=== PATIENT | male | born 1960 | race Two or more races ===

== ENCOUNTER 2024-05-11 13:33 | Inpatient (IN) | payer MEDICARE, MEDICAID, SELFPAY ==
[2024-05-11] VITALS (7 sets, daily range): BP systolic 128–164; BP diastolic 45–89; PULSE 42–89; RESP 16–100; TEMP 36.6–36.9; O2SAT 95–100; BMI 33.4
--- NOTE | 2024-05-11 13:53 | EKG_ITS ---
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1960 Requested By: ED Temporary Provider Order Number: [id number] Reading MD: ED Temporary Provider Measurements Intervals [place] Rate: 43 P: CO: QRS: -4 QRSD: 121 T: 54 QT: 428 QTc: 366 Interpretive Statements ATRIAL FLUTTER/TACHYCARDIA WITH SLOW VENTRICULAR RESPONSE MODERATE INTRAVENTRICULAR CONDUCTION DELAY [110+ ms QRS DURATION] NONSPECIFIC T-WAVE ABNORMALITY ABNORMAL RHYTHM ECG Compared to ECG 09/21/2021 05:09:05 Intraventricular conduction delay now present Sinus rhythm no longer present Incomplete right bundle-branch block no longer present T-wave abnormality still present /store/S0/[id number]/[id number].pdf
--- NOTE | 2024-05-11 14:07 | XR_ITS ---
Examination: CT brain head without contrast. 2-D sagittal coronal reconstructions Date and time of exam:May 11, 2024 1424 hours Comparison September 12, 2021 INDICATIONS: Loss of consciousness episode today CTDI: vol (mGy):49.8 DLP: (mGycm):1045 Technique: Multiple CT axial sections of the brain have been obtained, 5 mm slice thickness. Contrast has not been administered. 2-D sagittal, coronal reconstructions have been obtained Low dose protocols were performed. One or more of the following dose reduction techniques were used; automated exposure control, adjustment of the mA and/or KV according to patient size, use of iterative reconstruction technique. Findings: No significant ventricular enlargement. Intra-axial or extra-axial hemorrhage density is not seen. No mass effect or midline shift Basal cisterns are not remarkable. Fourth ventricle is midline. Cranial vault intact. Impression: Negative for acute hemorrhage, mass effect or midline shift
--- NOTE | 2024-05-11 14:07 | XR_ITS ---
Examination: AP chest single view TECHNIQUE: AP portal upright chest single view Exam date and time: May 11, 2024 1449 hours INDICATIONS: Confusion altered mental status today. FINDINGS: Normal heart size No aspiration pneumonia. The osseous structures are intact IMPRESSION: No active disease
--- NOTE | 2024-05-11 14:19 | PD.EDWEAK ---
ED Weakness RME/HPI General Chief complaint: Altered Mental Status Stated complaint: AMS Time Seen by Provider: 05/11/24 13:35 Arrival date/time: 05/11/24 13:33 RME / HPI RME / HPI Narrative: Patient is brought in by EMS for weakness for the past 24 hours per EMS. Patient has some confusion and evidently had a stroke paramedics reported he had a heart rate in the 40s his blood pressure was adequate there is no other complaints. No history of trauma or injury. Later on the arrived informs us that he had a blockage and he went to [facility] there is no known fever or chills this time states he had diarrhea 4 times yesterday. There is no reported blood. He is on Plavix and Eliquis for his previous stroke and the paperwork shows he had an LVO. Evidently did some interventional procedure at [facility]. Also states there is just some vague confusion as difficulty stating what day it is or certain issues. Related Data Home Medications ?Medication ?Instructions ?Recorded ?Confirmed ferrous sulfate 325 mg (65 mg 650 mg PO BIDWM #0 tabs 12/09/15 10/21/21 iron) tablet (Feosol) spironolactone 25 mg tablet 12.5 mg PO QDAY 08/20/20 10/21/21 nitrofurantoin 100 mg PO BID 10/21/21 10/21/21 monohydrate/macrocrystals 100 mg capsule (Macrobid) tamsulosin 0.4 mg capsule 0.4 mg PO QHS 10/21/21 10/21/21 amlodipine 10 mg tablet 10 mg PO QDAY 10/20/23 10/20/23 atorvastatin 80 mg tablet 80 mg PO QPM 10/20/23 10/20/23 clindamycin HCl 300 mg capsule 300 mg PO Q6H 10/20/23 10/20/23 clopidogrel 75 mg tablet 75 mg PO QDAY 10/20/23 10/20/23 escitalopram oxalate 10 mg tablet 10 mg PO QDAY 10/20/23 10/20/23 famotidine 20 mg tablet 20 mg PO QDAY 10/20/23 10/20/23 isosorbide mononitrate 30 mg 30 mg PO QDAY 10/20/23 10/20/23 tablet,extended release 24 hr megestrol 40 mg tablet 40 mg PO BID 10/20/23 10/20/23 metoprolol tartrate 25 mg tablet 25 mg PO QDAY 10/20/23 10/20/23 pantoprazole 40 mg tablet,delayed 40 mg PO QDAY 10/20/23 10/20/23 release Previous Rx's ?Medication ?Instructions ?Recorded apixaban 2.5 mg tablet (Eliquis) 2.5 mg PO BID #60 tabs 09/22/21 diltiazem HCl 60 mg 60 mg PO TID #85 caps 09/22/21 capsule,extended release 12 hr losartan 50 mg tablet 50 mg PO QDAY #30 tabs 09/22/21 Allergies Allergy/AdvReac Type Severity Reaction Status Date / Time bee pollen Allergy Severe Anaphylaxis Verified 10/20/23 11:23 Sulfa (Sulfonamide Allergy Intermediate Swelling Verified 10/20/23 11:23 Antibiotics) of Lip/Tongue/Throat ampicillin Allergy Unknown Hives Verified 10/20/23 11:23 hydrocodone AdvReac Unknown Nausea Verified 10/20/23 11:23 COLLAGEN Allergy Intermediate Rash Uncoded 10/20/23 11:23 Review of Systems Review of Systems ROS Unobtainable: unobtainable due to mental status ( states there is no other problems other than his atrial fibs previous ), unobtainable due to medical condition, due to endotracheal tube and other Narrative Review of Systems: Review of Systems: Constitutional: DENIES: Fevers,; Eyes: DENIES: Loss of vision, Head/Ear/Nose: DENIES: Loss of hearing. Throat: Denies dysphagia. Cardiovascular: Denies chest pain, Dyspnea or syncope. Respiratory: DENIES: Shortness of breath, Gastrointestinal: DENIES: Rectal bleeding or melena. Genitourinary: DENIES: Dysuria (painful or difficult urination),; Musculoskeletal: DENIES: Arthralgia (pain in a joint),; Skin: DENIES: Rash,; Neurological: DENIES: loss of function or movement,; Psychiatric: DENIES: recent major life stressor, emotional problem, illicit drug use or abuse,; Endocrinology: DENIES: Weight change,; Hematologic/Lymphatic: DENIES: Abnormal bruising. Allergic/Immunologic: DENIES: Urticaria (hives), Past Medical History Past Medical History CARDIAC: Positive Cardiac Disorders, Myocardial Infarction, Coronary Artery Disease, Hypercholesterolemia (no longer taking meds) and Hypertension GASTROINTESTINAL: Positive Gastrointestinal Disorders, Gall Bladder Disease, Gastrointestinal Bleed, Ulcer, Gastroesophageal Reflux Disease and Obesity MUSCULOSKELETAL: Positive Musculoskeletal Disorders (wheelchair bound, unable to move bilateral lower extremities), Bone Cancer (spine CA) and Scoliosis ENT: Positive Deafness (hard of hearing bilateral ears, wears hearing aids) HEMATOLOGIC: Positive Blood Disorders and Anemia (takes iron) PSYCHO/SOCIAL: Positive Depression OTHER HISTORY: Positive Hospitalization, Falls, Chemotherapy, Radiation Therapy and Cancer Family History FAMILY HISTORY: Positive Family Cardiac Disorders and Family Surgery; Negative Family Respiratory Disorders Surgical History SURGICAL: Positive Cardiac Surgery, Coronary Stent, Angiogram, Endocrine Surgery, Tonsillectomy, Abdominal Surgery and Amputation (right hand middle finger) Social History SMOKING STATUS: Never smoker SECOND HAND EXPOSURE: No SUBSTANCE USE: does not use ED Exam Narrative Physical exam: Physical Exam: General: The vital signs were reviewed. Patient is alert cordial rectal temperature was done which was negative. RN. He talks answers questions there is a certain amount of uncertainty and he gives some medical information is contradictory to what the is reporting. He is pleasant comfortable the patient is non-toxic, in no apparent distress and appears healthy with a patent airway, no respiratory distress and has no apparent circulatory problems. Head & Scalp: Normocephalic, atraumatic. Face: Appears normal and is without lesions, deformity. Ears: Left external pinna appears normal. Right external pinna appears normal. Eyes: The sclera is anicteric. No obvious photophobia. The Left and Right Orbit/Lid/Conjunctiva appears normal without swelling, discoloration or injection. Nose: The nose is without deformity, discharge or tenderness; Throat: Appears normal. The mucous membranes are pink and moist without exudates, redness or mass seen. The tongue appears normal. Neck: The neck is supple and no apparent mass or adenopathy. Chest: The chest wall is normal in size and symmetry and has no chest wall tenderness or crepitus. The patient displays normal ventilator effort without retractions, accessory muscle use and has adequate air movement bilaterally with no wheezes and no rales. Cardiovascular: Regular rate and rhythm; No murmurs, rubs, or gallops; Gastrointestinal: The abdomen appears normal. No obvious hernias or mass. The abdomen is soft and benign, non-distended, with no pain, no guarding and no rebound tenderness. Bowel sounds are present and normal sounding. No CVA tenderness. Genitourinary: Back/Spine: Vernon some stage I small to breakdown in his sacral area. Otherwise his skin looks pretty good. Extremities/Musculoskeletal/lymphatic: The bilateral upper and lower extremities are warm. There is no evidence of arterial insufficiency. There is no evidence of venous insufficiency/edema. The patient spontaneously moves bilateral upper and lower extremities with no pain and no limitation of movement. There is no apparent, injury or trauma. Skin: The skin is warm, dry and intact. No rashes. No petechia. No purpura. No abnormal bruising. The color is appropriate with no cyanosis. Mental status/Psychiatric: Mental status is appropriate for age. The patient has no apparent delusions, visual hallucinations, no apparent audible hallucinations. The patient has no apparent suicidal thoughts/ideation and no apparent homicidal thoughts/ideation. Neurological: The patient is awake, alert, interactive, cordial, cooperative and is oriented to name and situation. The patient follows commands and answers historical question with no impairment. There is no visual disturbance apparent. The pupils are equal and reactive bilaterally with normal eye movements and no diplopia The bilateral upper and lower extremities have normal strength, normal range of motion and normal functioning. The gait, station and balance were not tested due to acuity. Course Quality Measures none Orders Category Date Time Status Bedside Blood Glucose NOW Care 05/11/24 14:07 Active EKG (ED ONLY) *Do not use* NOW Care 05/11/24 13:[address] head/brain wo con Stat Exams 05/11/24 14:07 Completed EKG (ED Only) Stat Exams 05/11/24 13:53 Draft XR chest 1V portable Stat Exams 05/11/24 14:07 Completed Alcohol, Blood Medical Stat Lab 05/11/24 15:32 Completed Ammonia Stat Lab 05/11/24 15:32 Completed B-Type Natriuretic Peptide Stat Lab 05/11/24 15:32 Completed Blood Culture (Lab) Stat Lab 05/11/24 15:32 Received CBC Stat Lab 05/11/24 15:32 Completed Comprehensive Metabolic Panel Stat Lab 05/11/24 15:32 Completed Drug Screen,Urine Stat Lab 05/11/24 14:53 Completed Lactate (Lactic Acid) Stat Lab 05/11/24 15:32 Results Procalcitonin Stat Lab 05/11/24 15:32 Completed Prothrombin Time with INR Stat Lab 05/11/24 15:32 Completed Troponin I Stat Lab 05/11/24 15:32 Completed Type and Screen Stat Lab 05/11/24 15:32 Completed Urinalysis Stat Lab 05/11/24 14:53 Completed Urinalysis, C/S if Indicated Stat Lab 05/11/24 14:53 Completed Venous Blood Gas Stat Lab 05/11/24 15:32 Completed Sodium Chloride 0.9% 1000 ml [Ns] 2,000 ml Med 05/11/24 14:07 Active IV 150 mls/hr Sodium Chloride 0.9% 500 ml [Ns] 500 ml Med 05/11/24 15:01 Discontinued IV 999 mls/hr Vital Signs Vital signs: Vital Signs Temperature 97.8 F 05/11/24 13:54 Pulse Rate 42 L 05/11/24 13:54 Respiratory Rate 16 05/11/24 13:54 Blood Pressure 128/45 L 05/11/24 13:54 Pulse Oximetry (%) 98 05/11/24 13:54 Oxygen Delivery Method Room Air 05/11/24 13:54 Pulse ox is 98% on room air which is adequate. Weakness MDM Narrative MDM Narrative:: Patient has a 22 hours of not feeling good weak diarrhea lethargy with some confusion that states has been a slowly progressing. Will work the patient up for weakness and some vague altered mental status changes. There is no obvious focal deficits on presentation here today. Twelve-lead EKG was done which reveals a atrial fib flutter with a rate of [address] elevation TN seen. Obviously abnormal EKG. this is not far off from his baseline. Patient's laboratory studies revealed the following white count 7.3 hemoglobin 10.5 PT/INR is 13.4 and 1.2 VBG with a pH of 7.40. pCO2 of 33 sodium 139 potassium 5.9 note the patient had e abnormal kidney function a year ago when labs were drawn when he had his stroke. And it is reported that his kidney function normalized since that time as he was sent to [facility]. Creatinine is 2.1 today BUN is 50 again a year ago they were actually worse. Lactic acid is 2.3 which is elevated. Ammonia was negative troponin was negative BNP was slightly elevated to 61. Albumin was 4.0 urinalysis was negative. Urine drug screen was negative. CT of the head reveals no acute. Chest x-ray came back negative also. I called Dr Devries who evidently took care of this patient after her admission to [facility] to follow-up on the kidney abnormalities and is believe that these normalized well also today's bump in BUN/creatinine and elevated lactic acid and a hyperkalemia acute and need further evaluation. So hospitalist will admit for acute kidney injury and Dr Devries will be consulting. Patient data External records reviewed:: [facility] previous records (I reviewed ED visit on 10/20/23) and EMS form Clinical information provided by:: EMS and spouse Social determinants that could affect healthcare access:: none Patient has the following chronic illnesses:: hypertension, CAD w/ stents, AFib, stroke How is presenting disease/condition affected by chronic disease/condition?: exacerbated by Evaluation data The following diagnostics were reviewed and interpreted by me:: lab results, radiology exam(s) and EKG tracing(s) Lab and/or radiology exams considered but not ordered:: none Interpretation Summary: Ordering Physician: Toy Tuttle MD Date of Service: 05/11/24 Procedure(s): CT head/brain wo con Accession Number(s): [id number] cc: Toy Tuttle MD; Carlos Saunders MD; Wilfredo Navarro MD~ Examination: CT brain head without contrast. 2-D sagittal coronal reconstructions Date and time of exam:May 11, 2024 1424 hours Comparison September 12, 2021 INDICATIONS: Loss of consciousness episode today CTDI: vol (mGy):49.8 DLP: (mGycm):1045 Technique: Multiple CT axial sections of the brain have been obtained, 5 mm slice thickness. Contrast has not been administered. 2-D sagittal, coronal reconstructions have been obtained Low dose protocols were performed. One or more of the following dose reduction techniques were used; automated exposure control, adjustment of the mA and/or KV according to patient size, use of iterative reconstruction technique. Findings: No significant ventricular enlargement. Intra-axial or extra-axial hemorrhage density is not seen. No mass effect or midline shift Basal cisterns are not remarkable. Fourth ventricle is midline. Cranial vault intact. Impression: Negative for acute hemorrhage, mass effect or midline shift Dictated By: Carlos Saunders MD Signed By: <Electronically signed by Carlos Saunders MD in [place]> 03/06/25 1446 Ordering Physician: Toy Tuttle MD Date of Service: 05/11/24 Procedure(s): XR chest 1V portable Accession Number(s): [id number] cc: Toy Tuttle MD; Carlos Saunders MD; Wilfredo Navarro MD~ Examination: AP chest single view TECHNIQUE: AP portal upright chest single view Exam date and time: May 11, 2024 1449 hours INDICATIONS: Confusion altered mental status today. FINDINGS: Normal heart size No aspiration pneumonia. The osseous structures are intact IMPRESSION: No active disease Dictated By: Carlos Saunders MD Signed By: <Electronically signed by Carlos Saunders MD in [place]> 05/11/24 1522 Medications / Prescriptions Medications or Prescriptions considered but not ordered:: none Medication administrations:: Medication Administration History Sodium Chloride (Ns) 2,000 mls @ 150 mls/hr IV .[id number] ONE Stop: 05/12/24 03:26 Last Admin: 05/11/24 16:51 Dose: 150 mls/hr Documented By: VG Discontinued Medications Sodium Chloride (Ns) 500 mls @ 999 mls/hr IV .[id number] ONE Stop: 05/11/24 15:31 Last Infusion: 05/11/24 16:51 Dose: Infused Documented By: Admin: 05/11/24 15:02 Dose: 999 mls/hr Documented By: VG see above Consultations Consultation(s) initiated? (list below): Yes Diagnosis Weakness Differential Diagnosis: acute myocardial infarction, anemia, hypoglycemia, hypothyroidism, sepsis, dehydration and other (stroke) Most likely diagnosis given after review of the tests above:: The cause of the confusion is uncertain hyperkalemia and acute kidney injury most likely is due to dehydration although other causes must be considered. Admission Indicated Admission indicated?: indicated Admission Request Was there a request for admission?: Yes Admission Attestation Admission request attestation: Discussed case with [] from Hospitalist service regarding admission. Discussed patients ED course, exam findings, labs, and radiology results. The Hospitalist [agrees,declines] to accept the patient for admission. Disposition Plan Disposition Plan: Admit (Dr Devries was called at 1730 hrs. will be consulting.) Discharge Plan Plan Patient Disposition: Admit Acute Care w/in Hospital Disposition Comment: Hospitalist admit Dr Devries to consult. Prescriptions/Referrals Prescriptions/Med Rec: No Action spironolactone 25 mg tablet 12.5 mg PO QDAY nitrofurantoin monohyd/m-cryst [Macrobid] 100 mg capsule 100 mg PO BID Rx Instructions: must administer with a meal/food tamsulosin 0.4 mg capsule 0.4 mg PO QHS ferrous sulfate [Feosol] 1 TAB tablet 650 mg PO BIDWM Qty: 0 Eliquis 2.5 mg tablet 2.5 mg PO BID Qty: 60 2RF diltiazem HCl 60 mg capsule,extended release 12 hr 60 mg PO TID Qty: 85 3RF losartan 50 mg tablet 50 mg PO QDAY Qty: 30 3RF atorvastatin 80 mg Tablet 80 mg PO QPM clindamycin HCl 300 mg Capsule 300 mg PO Q6H isosorbide mononitrate 30 mg Tablet Extended Release 24 Hr 30 mg PO QDAY clopidogrel 75 mg Tablet 75 mg PO QDAY famotidine 20 mg Tablet 20 mg PO QDAY amlodipine 10 mg Tablet 10 mg PO QDAY pantoprazole 40 mg Tablet,Delayed Release (Dr/Ec) 40 mg PO QDAY megestrol 40 mg Tablet 40 mg PO BID escitalopram oxalate 10 mg Tablet 10 mg PO QDAY metoprolol tartrate 25 mg Tablet 25 mg PO QDAY Referrals: Wilfredo Navarro MD [Primary Care Provider] - In 1 week Problem List Clinical Impression: Acute kidney injury, Acute hyperkalemia, Weakness, Confusion, Elevated lactic acid level Patient/Caregiver Discharge Instructions Print Language: Albanian Stand Alone Forms: Caterina Award Info., Patient Portal Info Letter
--- NOTE | 2024-05-11 14:20 | PC.NURSE ---
PT TAKEN TO CT.
[2024-05-11] MEDS: SODIUM CHLORIDE 0.9% 500 ML 500 ML 999 ML IV (15:02)
[2024-05-11 15:13] LABS: Collection Type, Urine Clean Catch
[2024-05-11 15:26] LABS: Bilirubin,Urine Negative (Negative); Blood,Urine Negative (Negative); Clarity,Urine Clear (Clear/Hazy); Color,Urine Colorless (Lt Yel-Yel); Culture Indicated,Urine Not Indicated; Glucose, Urine Negative (Negative); Ketones,Urine Negative (Negative); Leukocyte Esterase,Urine Negative (Negative); Nitrite,Urine Negative (Negative); Protein,Urine Negative (Neg - Trace); RBC,Urine 1 /hpf (0-3); Specific Gravity,Urine 1.013 (1.001-1.035); Squamous Epithelial Cell,Urine 2 /hpf (0-5); Urobilinogen,Urine Negative mg/dL (0.0-1.0); WBC,Urine 1 /hpf (0-5)
[2024-05-11 15:32] LABS: Amphetamine/Methamp Scrn,U Negative (Negative); Barbiturate Screen,Urine Negative (Negative); Benzodiazepines Screen,Urine Negative (Negative); Benzoylecgonine Screen, Ur Negative (Negative); Fentanyl Screen,Urine Negative (Negative); Opiate Screen,Urine Negative (Negative); THC Screen,Urine Negative (Negative)
[2024-05-11 15:46] LABS: Basophils % (Auto) 1 % (0-2.5); Eosinophils # (Auto) 0.2 Thou/mm3 (0.0-0.5); Eosinophils % (Auto) 3 % (0-10); Hematocrit 32.1 % (41.0-53.0); Hemoglobin 10.5 g/dL (13.5-16.0); Immature Granulocytes % (Auto) 1 % (0-0); Immature Granulocytes Auto 0.05 Thou/mm3 (0.00-0.00); Lymphocytes # (Auto) 1.1 Thou/mm3 (1.0-4.8); Lymphocytes % (Auto) 15 % (10-50); Mean Corpuscular HGB Conc 32.7 g/dl (31.0-37.0); Mean Corpuscular Hemoglobin 28.8 pg (25.0-35.0); Mean Corpuscular Volume 88 fL (80-100); Monocytes # (Auto) 0.5 Thou/mm3 (0.0-0.8); Monocytes % (Auto) 7 % (0-12); Neutrophils # (Auto) 5.4 Thou/mm3 (1.8-7.7); Neutrophils % (Auto) 74 % (37-80); Nucleated Red Blood Cell % 0 /100 WBC (0); Platelet Count 269 Thou/mm3 (140-440); RDW Standard Deviation 49.9 fL (35.1-43.9); Red Blood Count 3.65 Miln/mm3 (4.50-5.90); White Blood Count 7.3 Thou/mm3 (3.8-10.6)
[2024-05-11 15:47] LABS: Lactate (Lactic Acid) 2.3 mMol/L (0.4-2.0)
[2024-05-11 15:48] LABS: Base Excess, Venous -4 (-3-3); O2 Saturation, Venous 54 % (96-97); PCO2, Venous 33 mmHg (36-56); PO2, Venous 30 mmHg (15-58)
[2024-05-11 16:00] LABS: INR 1.2 (0.9-1.3); Prothrombin Time 13.4 Seconds (9.0-12.2)
[2024-05-11 16:05] LABS: B-Type Natriuretic Peptide 261 pg/mL (0-100)
[2024-05-11 16:10] LABS: Ammonia < 10 uMol/L (11-32)
[2024-05-11 16:26] LABS: Alanine Aminotransferase 25 U/L (10-49); Albumin/Globulin Ratio 1.4 (1.2-2.2); Alcohol, Blood Medical < 3.0 mg/dL (0-10.0); Alkaline Phosphatase 95 U/L (46-116); Anion Gap 8 (7-16); Aspartate Amino Transferase 21 U/L (0-34); BUN/Creatinine Ratio 24 Ratio (12-20); Bilirubin,Total 0.4 mg/dL (0.3-1.2); Blood Urea Nitrogen 50 mg/dL (9-23); Calcium 9.6 mg/dL (8.3-10.6); Calcium (Corrected) 9.6 mg/dL (8.5-10.1); Carbon Dioxide 21.3 mMol/L (20.0-31.0); Chloride 110 mMol/L (98-107); Creatinine (Component) 2.1 mg/dL (0.6-1.3); Estimated Creatinine Clearance 41.8 mL/min (>60); Globulin 2.8 gm/dL (2.3-3.5); Glucose 92 mg/dL (74-106); Osmolality,Calculated 290 (275-295); Potassium 5.9 mMol/L (3.4-5.1); Procalcitonin 0.22 ng/ml (0.0-0.49); Sodium 139 mMol/L (136-145); Total Protein 6.8 gm/dL (5.7-8.2); Troponin I < 0.020 ng/mL (0.0-0.045); eGFR 35 See Note
[2024-05-11] MEDS: SODIUM CHLORIDE 0.9% 1000 ML 2,000 ML 150 ML IV (16:51)
[2024-05-11] MEDS: SOD POLYSTYRENE SULFON SUSP 15 GM/60 ML BTL PO (17:51)
--- NOTE | 2024-05-11 17:52 | PD.EDADDENDU ---
Emergency Room Addendum Addendum Narrative: Residents came down and the gave more history that he was having some black stools with his diarrhea and the resident did a rectal exam came back guaiac positive. Dr. Claros was called and notified. And will be consulting.
[2024-05-11 18:30] LABS: Lactate (Lactic Acid) 2.2 mMol/L (0.4-2.0)
--- NOTE | 2024-05-11 18:31 | XR_ITS ---
Examination: Retroperitoneal ultrasound, complete Technique: Multiple high resolution grayscale images of the retroperitoneum obtained, including kidneys and bladder. Exam date and time:May 11, 2024 1908 hrs. Indications: Acute renal insufficiency on laboratory examination today Findings: Right kidney 10.4 cm cortex 1.0 cm Multiple cysts, the largest 3.5 cm Perinephric stranding Left kidney 9.4 cm cortex 1 9 cm Multiple cysts, the largest 1.3 cm Moderate bilateral renal parenchymal scar formation No hydronephrosis No bladder mass or bladder calculi Bladder prevoid by 217 cc No prostatomegaly volume 15.7 cc no prostate nodules Impression: Small kidneys with bilateral renal cortical thinning Moderate bilateral renal parenchymal scar formation No hydronephrosis
[2024-05-11 18:41] LABS: Reflex Lactate? Y
[2024-05-11] MEDS: ALBUTEROL/IPRATROPIUM (Duoneb) RT SOL 3 ML NEBU INH (19:01)
--- NOTE | 2024-05-11 19:07 | PD.RESHP ---
Documentation for date of: 05/11/24 HPI History of Present Illness Chief complaint: Weakness, confusion, GI bleed History of present illness: Patient is a 64-year-old male with history of CAD s/p PCI, HTN, HLD, A-fib on Eliquis, CVA s/p thrombectomy in 2023 who was BIBA for weakness. is at bedside and assists with history. States that patient was slightly confused and had several episodes of diarrhea on 05/10/2024. She states the stool was dark. Denies fevers, chills, chest pain, SOB, abdominal pain, N/V, dysuria. also states the patient has been bedbound since COVID but has no residual deficits from CVA. In the ED, vitals/labs/imaging significant for: BP 120/45, bradycardia, anemia 10.5, mildly prolonged PT, potassium 5.9, BUN 50, creatinine 2.1, LA 2.3, BNP 261. Pro-Chavez, UA, UDS were all negative. CXR and head CT were both negative. EKG was consistent with a flutter with SVR. FOBT was positive. Patient received 2.5 L NS and Kayexalate for hyperkalemia. Additionally DuoNeb, Veltassa & Protonix were ordered. Repeat BMP & LA ordered, with LA improving to 2.2. After receiving IV fluids patient's mentation improved. Patient will be admitted for GI bleed and ARIA versus ARIA on CKD. GI and nephro were both consulted. Review of Systems Review of Systems Systems Reviewed: All systems reviewed, normal except as documented Past Medical History Past Medical History CARDIAC: Positive Cardiac Disorders, Myocardial Infarction, Coronary Artery Disease, Hypercholesterolemia (no longer taking meds) and Hypertension GASTROINTESTINAL: Positive Gastrointestinal Disorders, Gall Bladder Disease, Gastrointestinal Bleed, Ulcer, Gastroesophageal Reflux Disease and Obesity MUSCULOSKELETAL: Positive Musculoskeletal Disorders (wheelchair bound, unable to move bilateral lower extremities), Bone Cancer (spine CA) and Scoliosis ENT: Positive Deafness (hard of hearing bilateral ears, wears hearing aids) HEMATOLOGIC: Positive Blood Disorders and Anemia (takes iron) PSYCHO/SOCIAL: Positive Depression OTHER HISTORY: Positive Hospitalization, Falls, Chemotherapy, Radiation Therapy and Cancer Family History FAMILY HISTORY: Positive Family Cardiac Disorders and Family Surgery; Negative Family Respiratory Disorders Surgical History SURGICAL: Positive Cardiac Surgery, Coronary Stent, Angiogram, Endocrine Surgery, Tonsillectomy, Abdominal Surgery and Amputation (right hand middle finger) Social History SMOKING STATUS: Never smoker SECOND HAND EXPOSURE: No SUBSTANCE USE: does not use Exam Vital Signs Temp Pulse Resp BP Pulse Ox O2 Del Method 98.5 F 63 16 164/73 H 100 Room Air 05/11/24 18:38 05/11/24 19:03 05/11/24 19:03 05/11/24 18:38 05/11/24 19:03 05/11/24 18:38 Narrative Exam Gen: AAOx3, resting in bed, pleasant to speak with, hard of hearing, hearing aids noted HEENT: NCAT, PERRLA, EOMI, MM dry, no LAD CVS: normal S1, S2. RRR. No MRG. Distal pulses difficult to palpate Resp: CTA B/L. No rhonchi, rales, crackles or wheezing Abd: soft, non-tender, non-distended. 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 No focal deficits appreciated Results: Labs 05/11/24 15:32 05/11/24 18:22 Labs: Short CBC 05/11/24 Range/Units 15:32 WBC 7.3 (3.8-10.6) Thou/mm3 Hgb 10.5 L (13.5-16.0) g/dL Hct 32.1 L (41.0-53.0) % Plt Count 269 (140-440) Thou/mm3 BMP 05/11/24 15:32 Sodium 139 Potassium 5.9 H Chloride 110 H Carbon Dioxide 21.3 BUN 50 H Creatinine 2.1 H Glucose 92 Calcium 9.6 Cardiac Enzymes 05/11/24 Range/Units 15:32 Troponin I < 0.020 (0.0-0.045) ng/mL Liver Function 05/11/24 Range/Units 15:32 Total Bilirubin 0.4 (0.3-1.2) mg/dL AST 21 (0-34) U/L ALT 25 (10-49) U/L Alkaline Phosphatase 95 (46-116) U/L Albumin 4.0 (3.4-4.8) gm/dL Urine 05/11/24 Range/Units 14:53 Urine Color Colorless A (Lt Yel-Yel) Urine Clarity Clear (Clear/Hazy) Urine pH 6.0 (5.0-7.0) Ur Specific [place] 1.013 (1.001-1.035) Urine Protein Negative (Neg - Trace) Urine Glucose (UA) Negative (Negative) ABG Interpretation ABG results: 05/11/24 15:32 VBG pH 7.40 VBG pCO2 33 L VBG pO2 30 VBG Base Excess -4 L Quality Measures Quality Measures VTE prophylaxis (SCDs) Medications Home Medications and Allergies Home Medications ?Medication ?Instructions ?Recorded ?Confirmed ?Type ferrous sulfate 325 mg (65 mg 650 mg PO BIDWM #0 tabs 12/09/15 10/21/21 History iron) tablet (Feosol) spironolactone 25 mg tablet 12.5 mg PO QDAY 08/20/20 10/21/21 History nitrofurantoin 100 mg PO BID 10/21/21 10/21/21 History monohydrate/macrocrystals 100 mg capsule (Macrobid) tamsulosin 0.4 mg capsule 0.4 mg PO QHS 10/21/21 10/21/21 History amlodipine 10 mg tablet 10 mg PO QDAY 10/20/23 10/20/23 History atorvastatin 80 mg tablet 80 mg PO QPM 10/20/23 10/20/23 History clindamycin HCl 300 mg capsule 300 mg PO Q6H 10/20/23 10/20/23 History clopidogrel 75 mg tablet 75 mg PO QDAY 10/20/23 10/20/23 History escitalopram oxalate 10 mg tablet 10 mg PO QDAY 10/20/23 10/20/23 History famotidine 20 mg tablet 20 mg PO QDAY 10/20/23 10/20/23 History isosorbide mononitrate 30 mg 30 mg PO QDAY 10/20/23 10/20/23 History tablet,extended release 24 hr megestrol 40 mg tablet 40 mg PO BID 10/20/23 10/20/23 History metoprolol tartrate 25 mg tablet 25 mg PO QDAY 10/20/23 10/20/23 History pantoprazole 40 mg tablet,delayed 40 mg PO QDAY 08/14/24 08/14/24 History release Allergies Allergy/AdvReac Type Severity Reaction Status Date / Time bee pollen Allergy Severe Anaphylaxis Verified 10/20/23 11:23 Sulfa (Sulfonamide Allergy Intermediate Swelling Verified 10/20/23 11:23 Antibiotics) of Lip/Tongue/Throat ampicillin Allergy Unknown Hives Verified 10/20/23 11:23 hydrocodone AdvReac Unknown Nausea Verified 10/20/23 11:23 COLLAGEN Allergy Intermediate Rash Uncoded 10/20/23 11:23 Visit Medications Acetaminophen (Acetaminophen 325 Mg Tablet) 650 mg PO Q6H PRN PRN Reason: Fever >100.4 or mild pain Stop: 06/10/24 18:23 Albuterol/Ipratropium (Albuterol/Ipratropium (Duoneb) Rt Myrna 3 Ml Nebu) 3 ml INH Q2HR PRN PRN Reason: SHORTNESS OF BREATH OR WHEEZE Stop: 06/10/24 18:23 Last Admin: 05/11/24 19:01 Dose: 3 ml Sodium Chloride (Ns) 2,000 mls @ 150 mls/hr IV .[id number] ONE Stop: 05/12/24 03:26 Last Admin: 05/11/24 16:51 Dose: 150 mls/hr Ondansetron HCl (Ondansetron Inj 2 Mg/Ml Inj 2 Ml) 4 mg IV Q6H PRN; Protocol PRN Reason: NAUSEA OR VOMITING Stop: 06/10/24 18:23 Pantoprazole Sodium (Pantoprazole Inj 40 Mg Vial) 40 mg IVP Q12HR HANNAH Stop: 06/10/24 20:59 Pharmacy Consult (Pharmacy Renal Dose Adjustment 1 Ea) 1 each XX PRN PRN PRN Reason: CONSULT Stop: 06/10/24 18:30 Discontinued Medications Sodium Chloride (Ns) 500 mls @ 999 mls/hr IV .Q31M ONE Stop: 05/11/24 15:31 Last Infusion: 05/11/24 16:51 Dose: Infused Pantoprazole Sodium (Pantoprazole Inj 40 Mg Vial) 80 mg IV X1 ONE Stop: 05/11/24 18:25 Patiromer (Patiromer Calcium 8.4 Gm Packet (Non-Form)) 8.4 gm PO X1 ONE Stop: 05/11/24 19:01 Sodium Polystyrene Sulfonate (Sod Polystyrene Sulfon Susp 15 Gm/60 Ml Btl) 15 gm PO X1 ONE Stop: 05/11/24 17:27 Last Admin: 05/11/24 17:51 Dose: 15 gm Assessment & Plan Plan Patient is a 64-year-old male with history of CAD s/p PCI, HTN, HLD, A-fib on Eliquis, CVA s/p thrombectomy in 2023 who was BIBA for weakness. He was found to have an ARIA, hyperkalemia and GI bleed, for which she was admitted and will be worked up for. #GI bleed Diarrhea x 4 episodes, with black stools while at home Hemoglobin stable at 10.5; Positive FOBT in ED Type and screen done; transfuse if Hgb <8 due to cardiac history Will hold patient's Eliquis and start Protonix with 80 mg loading dose, then 40 mg twice daily GI was consulted, appreciate recommendations #ARIA versus ARIA on CKD #Hyperkalemia #Lactic acidosis BUN 50, creatinine 2.1, potassium 5.9, LA 2.3 => 2.2 Likely prerenal in the setting of diarrhea Patient was rehydrated with 2.5 L NS. Will continue with IV fluids Kayexalate, Veltassa, DuoNebs for hyperkalemia => repeat BMP pending Urine electrolytes ordered Renal ultrasound ordered Nephrology consulted, appreciate recommendations Avoid nephrotoxic medications when possible, renally dose medications #Acute encephalopathy, resolved Patient was not at baseline per , however and the ED physician report patient's mentation improved after receiving IV fluids Possibly secondary to uremia/ARIA versus dehydration Head CT, ammonia or negative #Stage II pressure sore Noted on sacrum Wound care ordered #Chronic normocytic anemia Hemoglobin 10.5, MCV 88 Likely secondary to CKD Monitor H&H on a.m. labs or stat if patient continues to have dark stools/diarrhea #A-fib, SVR EKG showed a flutter with slow ventricular rate [id number] 4; HAS-BLED 3 Due to GI bleed, Eliquis held #HTN BP stable at this time, continue to monitor vitals Due to dehydration/ARIA/GI bleed, will hold off on resuming antihypertensives #CAD s/p PCI #HLD #History of CVA s/p thrombectomy Will resume atorvastatin but hold Plavix #Depression On Lexapro at home but will hold due to risk of platelet dysfunction Dispo: Admitted for ARIA, GI bleed GI PPx: Protonix DVT PPx: SCDs Diet: N.p.o. except meds CODE STATUS: Full code Patient seen and care discussed with my attending Dr. Hodge. Gael Mccloud MD PGY-3 Attending Provider Attestation/Addendum I have discussed and was present for the essential components of the history, physical examination, diagnosis, and treatment plan with the resident. I agree with the patient's care as documented by the resident and amended herein by me. Kristopher Hodge DO. Although this document has been carefully reviewed, there may still be some phonetic and other typographical errors. These errors are purely grammatical due to imperfections in the software program and should not be construed in any way to compromise the substance of the patient's medical care during this visit.
[2024-05-11 19:15] LABS: Anion Gap 8 (7-16); BUN/Creatinine Ratio 24 Ratio (12-20); Blood Urea Nitrogen 51 mg/dL (9-23); Calcium 9.6 mg/dL (8.3-10.6); Carbon Dioxide 21.8 mMol/L (20.0-31.0); Chloride 111 mMol/L (98-107); Creatinine (Component) 2.1 mg/dL (0.6-1.3); Estimated Creatinine Clearance 41.8 mL/min (>60); Glucose 88 mg/dL (74-106); Osmolality,Calculated 293 (275-295); Potassium 5.9 mMol/L (3.4-5.1); Sodium 141 mMol/L (136-145); eGFR 35 See Note
[2024-05-11] MEDS: PANTOPRAZOLE INJ 40 MG VIAL 80 MG IV (19:19)
[2024-05-11] MEDS: PATIROMER CALCIUM 8.4 GM PACKET (NON-FORM) PO (19:23)
[2024-05-11 19:56] LABS: Creatinine,Random Urine 41 mg/dL (30-125); Potassium,Urine Random 29 mMol/L (12-62)
[2024-05-11 21:27] LABS: Reflex Lactate? Y
[2024-05-11] MEDS: ATORVASTATIN CALCIUM 20 MG TABLET 80 MG PO (21:28)
--- NOTE | 2024-05-11 21:29 | PD.IMCONS ---
HPI Data of Consult Requesting Physician: Bam Hodge DO Primary Care Provider: Wilfredo Navarro MD Consult Narrative Reason for consult: Dark stools FOBT positive History of present illness: 64 years old male asked by the ER physician to evaluate because of dark stools Patient was brought by the family to the ER because of the weakness And also family told the ER physician that patient has been having multiple dark stools and he was Hemoccult positive on rectal digital examination Initial hemoglobin hematocrit was 10.[address] scan of the head was negative Patient does take Eliquis for chronic atrial fibrillation as well as coronary artery disease status post PCI He also has a history of CVA status post thrombectomy 2023 cc:: cc: Bam Hodge DO Review of Systems Review of Systems ROS Unobtainable: unobtainable due to medical condition Past Medical History Surgical History OTHER SURGICAL HX: As in the history of present illness Meds Home Medications and Allergies Home Medications ?Medication ?Instructions ?Recorded ?Confirmed ?Type ferrous sulfate 325 mg (65 mg 650 mg PO BIDWM #0 tabs 12/09/15 10/21/21 History iron) tablet (Feosol) spironolactone 25 mg tablet 12.5 mg PO QDAY 08/20/20 10/21/21 History nitrofurantoin 100 mg PO BID 10/21/21 10/21/21 History monohydrate/macrocrystals 100 mg capsule (Macrobid) tamsulosin 0.4 mg capsule 0.4 mg PO QHS 10/21/21 10/21/21 History amlodipine 10 mg tablet 10 mg PO QDAY 10/20/23 10/20/23 History atorvastatin 80 mg tablet 80 mg PO QPM 10/20/23 10/20/23 History clindamycin HCl 300 mg capsule 300 mg PO Q6H 10/20/23 10/20/23 History clopidogrel 75 mg tablet 75 mg PO QDAY 10/20/23 10/20/23 History escitalopram oxalate 10 mg tablet 10 mg PO QDAY 10/20/23 10/20/23 History famotidine 20 mg tablet 20 mg PO QDAY 10/20/23 10/20/23 History isosorbide mononitrate 30 mg 30 mg PO QDAY 10/20/23 10/20/23 History tablet,extended release 24 hr megestrol 40 mg tablet 40 mg PO BID 10/20/23 10/20/23 History metoprolol tartrate 25 mg tablet 25 mg PO QDAY 10/20/23 10/20/23 History pantoprazole 40 mg tablet,delayed 40 mg PO QDAY 10/20/23 10/20/23 History release Allergies Allergy/AdvReac Type Severity Reaction Status Date / Time bee pollen Allergy Severe Anaphylaxis Verified 10/20/23 11:23 Sulfa (Sulfonamide Allergy Intermediate Swelling Verified 10/20/23 11:23 Antibiotics) of Lip/Tongue/Throat ampicillin Allergy Unknown Hives Verified 10/20/23 11:23 hydrocodone AdvReac Unknown Nausea Verified 10/20/23 11:23 COLLAGEN Allergy Intermediate Rash Uncoded 10/20/23 11:23 Exam Vital Signs Temp Pulse Resp BP Pulse Ox O2 Del Method 98.1 F 74 19 141/89 H 100 Room Air 05/11/24 20:06 05/11/24 20:06 05/11/24 20:06 05/11/24 20:06 05/11/24 20:06 05/11/24 20:06 Constitutional Comments: Chronically ill-appearing Routine Respiratory Exam Comments: Normal to auscultation Routine Abdominal Exam Comments: Soft nontender Results Labs 05/11/24 15:32 05/11/24 21:13 Labs: Short CBC 05/11/24 Range/Units 15:32 WBC 7.3 (3.8-10.6) Thou/mm3 Hgb 10.5 L (13.5-16.0) g/dL Hct 32.1 L (41.0-53.0) % Plt Count 269 (140-440) Thou/mm3 BMP 05/11/24 05/11/24 15:32 18:22 Sodium 139 141 Potassium 5.9 H 5.9 H Chloride 110 H 111 H Carbon Dioxide 21.3 21.8 BUN 50 H 51 H Creatinine 2.1 H 2.1 H Glucose 92 88 Calcium 9.6 9.6 Cardiac Enzymes 05/11/24 Range/Units 15:32 Troponin I < 0.020 (0.0-0.045) ng/mL Liver Function 05/11/24 Range/Units 15:32 Total Bilirubin 0.4 (0.3-1.2) mg/dL AST 21 (0-34) U/L ALT 25 (10-49) U/L Alkaline Phosphatase 95 (46-116) U/L Albumin 4.0 (3.4-4.8) gm/dL Urine 05/11/24 Range/Units 14:53 Urine Color Colorless A (Lt Yel-Yel) Urine Clarity Clear (Clear/Hazy) Urine pH 6.0 (5.0-7.0) Ur Specific [place] 1.013 (1.001-1.035) Urine Protein Negative (Neg - Trace) Urine Glucose (UA) Negative (Negative) ABG Interpretation ABG results: 05/11/24 15:32 VBG pH 7.40 VBG pCO2 33 L VBG pO2 30 VBG Base Excess -4 L Assessment and Plan Additional Assessment & Plan Additional Plan: # Melena with FOBT positive in a patient on Eliquis for chronic atrial fibrillation Plan Agree with holding the Eliquis N.p.o. midnight tonight Fiberoptic esophagogastroduodenoscopy with possible therapeutic intervention under intravenous moderation scheduled for tomorrow Consent will be obtained from the family and the patient Other medical problems include CVA status post thrombectomy Coronary artery status post PCI Chronic A-fib ARIA on CKD Thank you very much for the opportunity to participate in care of this patient
[2024-05-11 21:31] LABS: Lactic Acid, 3 HR 2.2 mMol/L (0.4-2.0)
[2024-05-11 21:48] LABS: Anion Gap 12 (7-16); BUN/Creatinine Ratio 24 Ratio (12-20); Blood Urea Nitrogen 47 mg/dL (9-23); Calcium 9.6 mg/dL (8.3-10.6); Carbon Dioxide 19.2 mMol/L (20.0-31.0); Chloride 112 mMol/L (98-107); Estimated Creatinine Clearance 43.9 mL/min (>60); Glucose 89 mg/dL (74-106); Osmolality,Calculated 296 (275-295); Potassium 5.3 mMol/L (3.4-5.1); Sodium 143 mMol/L (136-145); eGFR 37 See Note
[2024-05-12] VITALS (17 sets, daily range): BP systolic 114–156; BP diastolic 55–88; PULSE 53–93; RESP 8–100; TEMP 36.1–36.6; O2SAT 97–100; BMI 30.6
[2024-05-12] MEDS: RINGERS LACTATED 1000 ML 1,000 ML 125 ML IV (04:27)
[2024-05-12] MEDS: PANTOPRAZOLE INJ 40 MG VIAL IVP ×2 (05:32→20:14)
[2024-05-12 05:51] LABS: Basophils % (Auto) 0 % (0-2.5); Eosinophils # (Auto) 0.2 Thou/mm3 (0.0-0.5); Eosinophils % (Auto) 3 % (0-10); Hemoglobin 9.9 g/dL (13.5-16.0); Immature Granulocytes % (Auto) 1 % (0-0); Immature Granulocytes Auto 0.05 Thou/mm3 (0.00-0.00); Lymphocytes # (Auto) 0.8 Thou/mm3 (1.0-4.8); Lymphocytes % (Auto) 13 % (10-50); Mean Corpuscular HGB Conc 31.9 g/dl (31.0-37.0); Mean Corpuscular Hemoglobin 28.4 pg (25.0-35.0); Mean Corpuscular Volume 89 fL (80-100); Monocytes # (Auto) 0.4 Thou/mm3 (0.0-0.8); Monocytes % (Auto) 7 % (0-12); Neutrophils # (Auto) 4.6 Thou/mm3 (1.8-7.7); Neutrophils % (Auto) 76 % (37-80); Nucleated Red Blood Cell % 0 /100 WBC (0); Platelet Count 202 Thou/mm3 (140-440); RDW Standard Deviation 50.1 fL (35.1-43.9); Red Blood Count 3.49 Miln/mm3 (4.50-5.90)
[2024-05-12 06:00] LABS: INR 1.3 (0.9-1.3); Partial Thromboplastin Time 24.9 Seconds (22.0-36.0); Prothrombin Time 13.5 Seconds (9.0-12.2)
[2024-05-12 06:15] LABS: Alanine Aminotransferase 22 U/L (10-49); Albumin, Serum 3.5 gm/dL (3.4-4.8); Albumin/Globulin Ratio 1.3 (1.2-2.2); Alkaline Phosphatase 94 U/L (46-116); Anion Gap 9 (7-16); Aspartate Amino Transferase 22 U/L (0-34); BUN/Creatinine Ratio 20 Ratio (12-20); Bilirubin,Total 0.4 mg/dL (0.3-1.2); Blood Urea Nitrogen 36 mg/dL (9-23); Calcium 8.8 mg/dL (8.3-10.6); Calcium (Corrected) 9.2 mg/dL (8.5-10.1); Carbon Dioxide 19.2 mMol/L (20.0-31.0); Chloride 112 mMol/L (98-107); Creatinine (Component) 1.8 mg/dL (0.6-1.3); Estimated Creatinine Clearance 46.7 mL/min (>60); Globulin 2.7 gm/dL (2.3-3.5); Glucose 86 mg/dL (74-106); Magnesium 1.8 mg/dL (1.6-2.6); Osmolality,Calculated 286 (275-295); Phosphorous 3.8 mg/dL (2.4-5.1); Potassium 5.6 mMol/L (3.4-5.1); Sodium 140 mMol/L (136-145); Total Protein 6.2 gm/dL (5.7-8.2); eGFR 42 See Note
[2024-05-12] MEDS: ALBUTEROL/IPRATROPIUM (Duoneb) RT SOL 3 ML NEBU INH (08:40)
[2024-05-12] MEDS: Magnesium Sulfate 2 GM Ivpb 2 GM/50 ML BAG IV (09:08)
[2024-05-12] MEDS: PATIROMER CALCIUM 8.4 GM PACKET (NON-FORM) PO (10:22)
--- NOTE | 2024-05-12 11:28 | PC.SS ---
Patient Agustin Schrader is a 64 Year old female admitted for ARIA, Gi Bleed. SS met with patient at bedside to discuss discharge planning and review demographic information. Patient reports he lives at home with his , Sheila Watkins who he reports is his surrogate decision maker [phone].. Patient reports he does utilize a wheelchair to assist with ambulation. Patient is bedbound. reports she does assist patient with his ADL's. Patient does not utilize any home 02. PCP is Wilfredo Navarro .At time of discharge patient will return home. Family will provide transportation. Next of Kin: , Sheila Watkins [phone] Discharge plan: Home
--- NOTE | 2024-05-12 13:07 | PC.NURSE ---
Pt was taken to EGD procedure at this time
--- NOTE | 2024-05-12 13:25 | ESPR_ITS ---
<Statement entered by Molina Corado MD - 05/12/24 15:21> Patient was seen and examined at the bedside. Patient was admitted yesterday due to GI bleed. Dr. Claros, GI specialist recommended to hold Eliquis and patient will go for EGD today which showed esophageal ulcers and peptic ulcer disease. He recommended to continue Protonix 40 mg IV twice daily and avoid NSAIDs. Will continue to monitor her and awaiting for improvement of ARIA. Renal ultrasound showed small atrophic kidneys. Hemoglobin was stable today at 9.9. Blood cultures are pending. We discontinued the fluids. Labs were significant for hyperkalemia and Veltassa and breathing treatment was given x 1. Repeating potassium to monitor. Rest of the management remains same. Home health orders were placed. All labs and orders were reviewed. I saw and examined the patient, and I agree with current management stated by Dr Balta MD,PGY1. Plan of care was discussed with the attending physician and resident physician. Disclaimer: Despite multiple revisions, due to the dictation software being used, the document bellow may not be free of grammatical errors including phonetic/typographic errors. However, this does not deter from our commitment to providing health care in the patient's best interest in mind. Dr. Mickie MD, PGY 2 Documentation for date of: 05/12/24 Subjective Subjective Interval history: Agustin Schrader is a 64-y/o male with a PMHx of CAD s/p PCI, HTN, HLD, A-fib on Eliquis, CVA s/p thrombectomy in 2023 who was BIBA for weakness. at bedside and assists with history. Slightly confused and had several episodes of diarrhea on on 05/10. She states the stool was dark. Denies fevers, chills, chest pain, SOB, abdominal pain, N/V, dysuria. also states the patient has been bedbound since COVID but has no residual deficits from CVA. In ED, vitals/labs/imaging significant for: BP 120/45, bradycardia, anemia 10.5, mildly prolonged PT, K 5.9, BUN 50, creatinine 2.1, LA 2.3, BNP 261. Pro-Chavez, UA, UDS were all negative. CXR and head CT were both negative. EKG was consistent with a flutter with SVR. FOBT was positive. Received 2.5 L NS and Kayexalate for hyperkalemia. Additionally DuoNeb, Veltassa & Protonix ordered. Repeat BMP & LA ordered, with LA improving to 2.2. After receiving IV fluids patient's mentation improved. 05/12: Seen and examined on medical floor. No acute overnight events reported. A&Ox3 and states that he has not had any loose bowel movements and does not have any abdominal pain. K noted to be elevated on AM labs and received breathing treatment and veltassa and will recheck in early afternoon. Planned for EGD by Dr. Claros today for evaluation of source of GI bleed and continuing to hold eliquis in the meantime. Exam Vital Signs Temp Pulse Resp BP Pulse Ox O2 Del Method 97.4 F 72 13 156/80 H 100 Room Air 05/12/24 08:00 05/12/24 13:05 05/12/24 13:05 05/12/24 13:05 05/12/24 13:05 05/12/24 08:00 Narrative Exam General: AOx3, able to speak full sentences, resting comfortably in bed, pleasant HEENT: NC/AT, mucous membranes moist, bilateral sclera anicteric Cardiovascular: regular rate and rhythm, S1/S2 present, no murmurs appreciated Pulmonary: clear to auscultation bilaterally, no rales/rhonchi/wheezes Abdominal: soft, non-tender, non-distended, no rebound/guarding, normal bowel sounds present Musculoskeletal: scoliosis of spine, stage II pressure ulcer on sacrum, no peripheral edema Neuro: CN II-XII intact, no focal deficits Objective Labs 05/12/24 05:08 05/12/24 14:25 Labs: Laboratory Results - last 24 hr 05/11/24 05/11/24 05/11/24 14:53 15:32 18:02 WBC 7.3 RBC 3.65 L Hgb 10.5 L Hct 32.1 L MCV 88 MCH 28.8 MCHC 32.7 RDW Std Deviation 49.9 H Plt Count 269 Neut % (Auto) 74 Lymph % (Auto) 15 Bath % (Auto) 7 Eos % (Auto) 3 Baso % (Auto) 1 Neut # (Auto) 5.4 Lymph # (Auto) 1.1 Bath # (Auto) 0.5 Eos # (Auto) 0.2 Baso # (Auto) 0.0 Immature Gran # (Auto) 0.05 H Absolute Nucleated RBC 0.00 Immature Gran % 1 H Nucleated RBC % 0 PT 13.4 H INR 1.2 APTT VBG pH 7.40 VBG pCO2 33 L VBG pO2 30 VBG O2 Sat (Gretel) 54 L VBG Base Excess -4 L Sodium 139 Potassium 5.9 H Chloride 110 H Carbon Dioxide 21.3 Anion Gap 8 BUN 50 H Creatinine 2.1 H Estim Creat Clear Calc 41.8 L eGFR 35 L BUN/Creatinine Ratio 24 H Glucose 92 Calculated Osmolality 290 Lactic Acid 2.3 H 2.2 H Calcium 9.6 Corrected Calcium 9.6 Phosphorus Magnesium Total Bilirubin 0.4 AST 21 ALT 25 Alkaline Phosphatase 95 Ammonia < 10 L Troponin I < 0.020 B-Natriuretic Peptide 261 H Total Protein 6.8 Albumin 4.0 Globulin 2.8 Albumin/Globulin Ratio 1.4 Procalcitonin 0.22 Ur Collection Type Clean Catch Urine Color Colorless A Urine Clarity Clear Urine pH 6.0 Ur Specific Dewitt 1.013 Urine Protein Negative Urine Glucose (UA) Negative Urine Ketones Negative Urine Blood Negative Urine Nitrite Negative Urine Bilirubin Negative Urine Urobilinogen (Auto) Negative Ur Leukocyte Esterase Negative Urine RBC 1 Urine WBC 1 Ur Squamous Epith Cells 2 Urine Bacteria None Ur Culture Indicated? Not Indicated Ur Random Creatinine 41 Ur Random Sodium 106.0 Ur Random Potassium 29 Ur Random Chloride 97.0 Ur Random Urea Nitrogn 488.0 Urine Opiates Screen Negative Urine Fentanyl Screen Negative Ur Barbiturates Screen Negative U Amphetamin/Meth Scrn Negative U Benzodiazepines Scrn Negative U Cocaine Metab Screen Negative U Marijuana (THC) Screen Negative Ethyl Alcohol < 3.0 Blood Type O Positive Antibody Screen NEGATIVE Blood Bank Wristband ID Yes 05/11/24 05/11/24 05/12/24 18:22 21:13 05:08 WBC 6.0 RBC 3.49 L Hgb 9.9 L Hct 31.0 L MCV 89 MCH 28.4 MCHC 31.9 RDW Std Deviation 50.1 H Plt Count 202 D Neut % (Auto) 76 Lymph % (Auto) 13 Bath % (Auto) 7 Eos % (Auto) 3 Baso % (Auto) 0 Neut # (Auto) 4.6 Lymph # (Auto) 0.8 L Bath # (Auto) 0.4 Eos # (Auto) 0.2 Baso # (Auto) 0.0 Immature Gran # (Auto) 0.05 H Absolute Nucleated RBC 0.00 Immature Gran % 1 H Nucleated RBC % 0 PT 13.5 H INR 1.3 APTT 24.9 VBG pH VBG pCO2 VBG pO2 VBG O2 Sat (Gretel) VBG Base Excess Sodium 141 143 140 Potassium 5.9 H 5.3 H D 5.6 H Chloride 111 H 112 H 112 H Carbon Dioxide 21.8 19.2 L 19.2 L Anion Gap 8 12 9 BUN 51 H 47 H 36 H Creatinine 2.1 H 2.0 H 1.8 H Estim Creat Clear Calc 41.8 L 43.9 L 46.7 L eGFR 35 L 37 L 42 L BUN/Creatinine Ratio 24 H 24 H 20 Glucose 88 89 86 Calculated Osmolality 293 296 H 286 Lactic Acid 2.2 H Calcium 9.6 9.6 8.8 Corrected Calcium 9.2 Phosphorus 3.8 Magnesium 1.8 Total Bilirubin 0.4 AST 22 ALT 22 Alkaline Phosphatase 94 Ammonia Troponin I B-Natriuretic Peptide Total Protein 6.2 Albumin 3.5 D Globulin 2.7 Albumin/Globulin Ratio 1.3 Procalcitonin Ur Collection Type Urine Color Urine Clarity Urine pH Ur Specific Dewitt Urine Protein Urine Glucose (UA) Urine Ketones Urine Blood Urine Nitrite Urine Bilirubin Urine Urobilinogen (Auto) Ur Leukocyte Esterase Urine RBC Urine WBC Ur Squamous Epith Cells Urine Bacteria Ur Culture Indicated? Ur Random Creatinine Ur Random Sodium Ur Random Potassium Ur Random Chloride Ur Random Urea Nitrogn Urine Opiates Screen Urine Fentanyl Screen Ur Barbiturates Screen U Amphetamin/Meth Scrn U Benzodiazepines Scrn U Cocaine Metab Screen U Marijuana (THC) Screen Ethyl Alcohol Blood Type Antibody Screen Blood Bank Wristband ID ABG Interpretation ABG results: 05/11/24 15:32 VBG pH 7.40 VBG pCO2 33 L VBG pO2 30 VBG Base Excess -4 L Quality Measures Quality Measures VTE prophylaxis (SCDs) Assessment & Plan Assessment Current Active Medications: Generic Name Dose Route Start Last Admin Trade Name Freq PRN Reason Stop Dose Admin Acetaminophen 650 mg 05/11/24 18:24 Acetaminophen 325 Mg Tablet PO 06/10/24 18:23 Q6H PRN Fever >100.4 or mild pain Albuterol/Ipratropium 3 ml 05/11/24 18:24 05/11/24 19:01 Albuterol/Ipratropium (Duoneb) Rt Myrna 3 Ml Nebu INH 06/10/24 18:23 3 ml Q2HR PRN Administration SHORTNESS OF BREATH OR WHEEZE Atorvastatin Calcium 80 mg 05/11/24 21:00 05/11/24 21:28 Atorvastatin Calcium 20 Mg Tablet PO 06/10/24 20:59 80 mg HS HANNAH Administration Dextrose 25 ml 05/12/24 08:07 Dextrose 50%-Water Inj 50 Ml Syringe IV 06/11/24 08:06 Q15MIN PRN BG 50-70 responsive npo pt Dextrose 50 ml 05/12/24 08:07 Dextrose 50%-Water Inj 50 Ml Syringe IV 06/11/24 08:06 Q15MIN PRN BG <50 OR BG <70 & pt unresponsive Diphenhydramine HCl 25 mg 05/12/24 13:10 Diphenhydramine Inj 50 Mg/Ml Vial IV 05/12/24 15:10 [id number] PRN MODERATE SEDATION Fentanyl Citrate 50 mcg 05/12/24 13:10 Fentanyl Cit Inj 50 Mcg/Ml Amp 2ml IV 05/12/24 15:10 Q2M PRN MODERATE SEDATION Glucagon 1 mg 05/12/24 08:07 Glucagon Inj 1 Mg Vial IM Q15MIN PRN BG <70, and no IV access Meperidine HCl 25 mg 05/12/24 13:10 Meperidine Inj 50 Mg/Ml Vial IV 05/12/24 15:10 Q2M PRN MODERATE SEDATION Midazolam HCl 2 mg 05/12/24 13:10 Midazolam Inj 1 Mg/Ml Vial 2 Ml IV 05/12/24 15:10 Q2M PRN Moderate Sedation Ondansetron HCl 4 mg 05/11/24 18:24 Ondansetron Inj 2 Mg/Ml Inj 2 Ml IV 06/10/24 18:23 Q6H PRN NAUSEA OR VOMITING Protocol Pantoprazole Sodium 40 mg 05/12/24 06:00 05/12/24 05:32 Pantoprazole Inj 40 Mg Vial IVP 06/11/24 05:59 40 mg Q12HR HANNAH Administration Pharmacy Consult 1 each 05/11/24 18:31 Pharmacy Renal Dose Adjustment 1 Ea XX 06/10/24 18:30 PRN PRN CONSULT Plan Agustin Schrader is a 64-y/o male with a PMHx of CAD s/p PCI, HTN, HLD, A-fib on Eliquis, CVA s/p thrombectomy in 2023 who was BIBA for weakness. at bedside and assists with history. Slightly confused and had several episodes of diarrhea on on 05/10. She states the stool was dark. Denies fevers, chills, chest pain, SOB, abdominal pain, N/V, dysuria. also states the patient has been bedbound since COVID but has no residual deficits from CVA. Admitted for evaluation of GI bleed. GI and nephrology consulted. #GI bleed # Esophageal ulcers Diarrhea x 4 episodes, with black stools while at home. Hemoglobin stable at 10.5; Positive FOBT in ED. Type and screen done; transfuse if Hgb < 8 due to cardiac history. - Hold Eliquis and start Protonix with 80 mg loading dose, then 40 mg twice daily - GI was consulted, appreciate recommendations - Plan for EGD today, 05/12 #ARIA versus ARIA on CKD, likely prerenal in setting of diarrhea #Hyperkalemia #Lactic acidosis BUN 50, creatinine 2.1, potassium 5.9, LA 2.3 => 2.2. BUN and Cr improving from admission. Potassium 5.6 and will give another treatment with albuterol and veltassa. Rehydrated with 2.5 L NS. Kayexalate, Veltassa, DuoNebs for hyperkalemia in ED. Urine creatinine 41, sodium 106, potassium 29, chloride 97, urine adjutant 488 FENa 3.6%, indicating intrinsic renal pathology. Renal ultrasound: Small kidneys with bilateral renal cortical thinning, moderate bilateral parenchymal scar formation - Nephrology consulted, appreciate recommendations - Avoid nephrotoxic medications when possible, renally dose medications #Acute encephalopathy, resolved Not at baseline per , however and the ED physician report patient's mentation improved after receiving IV fluids. Possibly secondary to uremia/ARIA versus dehydration. Head CT, ammonia or negative #Stage II pressure sore on sacrum - Wound care ordered #Chronic normocytic anemia, likely secondary to CKD Hemoglobin 10.5, MCV 88 - Monitor H&H on a.m. labs or stat if patient continues to have dark stools/diarrhea #A-fib, SVR EKG showed a flutter with slow ventricular rate [id number]; HAS-BLED 3 - Due to GI bleed, Eliquis held #Hypertension BP stable at this time, continue to monitor vitals - Due to dehydration/ARIA/GI bleed, will hold off on resuming antihypertensives #CAD s/p PCI #HLD #History of CVA s/p thrombectomy - Will resume atorvastatin but hold Plavix #Depression - Lexapro at home but will hold due to risk of platelet dysfunction Hospital management: Disposition: Pending EGD for evaluation of GI bleed Fluids: None Diet: N.p.o., peptic ulcer disease diet for dinner Lines: PIV DVT prophylaxis: SCDs given GI bleed GI prophylaxis: Pantoprazole 40 mg IV twice daily CODE STATUS: full code ----- Plan discussed with attending physician Dr. Hodge and senior resident Dr. Mickie Gifford MD PGY-1 Internal Medicine Attending Provider Attestation/Addendum I have discussed and was present for the essential components of the history, physical examination, diagnosis, and treatment plan with the resident. I agree with the patient's care as documented by the resident and amended herein by me. Kristopher Hodge DO. Although this document has been carefully reviewed, there may still be some phonetic and other typographical errors. These errors are purely grammatical due to imperfections in the software program and should not be construed in any way to compromise the substance of the patient's medical care during this visit.
--- NOTE | 2024-05-12 13:32 | SUR.PHASEI ---
pt received from OR in recovery bay 5. pt asleep but responds to voice, breathing unlabored on room air. v/s stable. report received from Linda MACK.
--- NOTE | 2024-05-12 14:10 | SUR.PHASEI ---
pt awake and alert, breathing unlabored on room air. v/s stable. report called to Mavis MACK. pt will be transferred to room at this time.
--- NOTE | 2024-05-12 14:51 | PC.SS ---
SS follow up note; Patient's informed SS that patient is established with [facility] for wound care. SS informed Dr. Hodge if he could input HH orders. Dr. Hodge Verbalized understanding and reported he would submit HH orders. Patient is having an endoscopy today.
[2024-05-12 15:01] LABS: Potassium 5.7 mMol/L (3.4-5.1)
[2024-05-12] MEDS: ATORVASTATIN CALCIUM 20 MG TABLET 80 MG PO (20:13)
[2024-05-13] VITALS: PULSE 80
[2024-05-13 03:25] VITALS: PULSE 71
[2024-05-13 04:00] VITALS: BP 99/64; PULSE 67; RESP 17; TEMP 36.6; O2SAT 96
[2024-05-13 06:19] LABS: Basophils % (Auto) 1 % (0-2.5); Eosinophils # (Auto) 0.1 Thou/mm3 (0.0-0.5); Eosinophils % (Auto) 3 % (0-10); Hematocrit 29.9 % (41.0-53.0); Hemoglobin 9.7 g/dL (13.5-16.0); Immature Granulocytes % (Auto) 1 % (0-0); Immature Granulocytes Auto 0.03 Thou/mm3 (0.00-0.00); Lymphocytes # (Auto) 1.1 Thou/mm3 (1.0-4.8); Lymphocytes % (Auto) 19 % (10-50); Mean Corpuscular HGB Conc 32.4 g/dl (31.0-37.0); Mean Corpuscular Hemoglobin 28.5 pg (25.0-35.0); Mean Corpuscular Volume 88 fL (80-100); Monocytes # (Auto) 0.4 Thou/mm3 (0.0-0.8); Monocytes % (Auto) 7 % (0-12); Neutrophils # (Auto) 3.9 Thou/mm3 (1.8-7.7); Neutrophils % (Auto) 71 % (37-80); Nucleated Red Blood Cell % 0 /100 WBC (0); Platelet Count 228 Thou/mm3 (140-440); RDW Standard Deviation 49.4 fL (35.1-43.9); White Blood Count 5.6 Thou/mm3 (3.8-10.6)
[2024-05-13 06:41] LABS: Alanine Aminotransferase 19 U/L (10-49); Albumin, Serum 3.6 gm/dL (3.4-4.8); Albumin/Globulin Ratio 1.4 (1.2-2.2); Alkaline Phosphatase 99 U/L (46-116); Anion Gap 7 (7-16); Aspartate Amino Transferase 17 U/L (0-34); BUN/Creatinine Ratio 22 Ratio (12-20); Bilirubin,Total 0.4 mg/dL (0.3-1.2); Blood Urea Nitrogen 37 mg/dL (9-23); Calcium 9.1 mg/dL (8.3-10.6); Calcium (Corrected) 9.4 mg/dL (8.5-10.1); Chloride 110 mMol/L (98-107); Creatinine (Component) 1.7 mg/dL (0.6-1.3); Estimated Creatinine Clearance 49.4 mL/min (>60); Globulin 2.5 gm/dL (2.3-3.5); Glucose 84 mg/dL (74-106); Osmolality,Calculated 281 (275-295); Phosphorous 3.9 mg/dL (2.4-5.1); Potassium 4.6 mMol/L (3.4-5.1); Sodium 137 mMol/L (136-145); Total Protein 6.1 gm/dL (5.7-8.2); eGFR 45 See Note
[2024-05-13 08:00] VITALS: BP 189/81; PULSE 74; PULSE 87; RESP 17; TEMP 36.9; O2SAT 98
[2024-05-13] MEDS: PANTOPRAZOLE INJ 40 MG VIAL IVP (08:41)
[2024-05-13 08:50] VITALS: PULSE 62; RESP 18; RESP 99; O2SAT 99
--- NOTE | 2024-05-13 09:00 | PC.NURSE ---
Racquel Alexandra. Notified Dr. Corado. Potassium 4.6
[2024-05-13 12:00] VITALS: BP 118/66; PULSE 75; PULSE 78; RESP 16; TEMP 37; O2SAT 99
--- NOTE | 2024-05-13 14:20 | ESPR_ITS ---
Documentation for date of: 05/13/24 Subjective Subjective Interval history: Patient evaluated Hemoglobin hematocrit stable Case discussed with internal medicine team Okay to discharge patient Exam Vital Signs Temp Pulse Resp BP Pulse Ox O2 Del Method O2 Flow Rate 98.6 F 75 16 118/66 99 Room Air 3 05/13/24 12:00 05/13/24 12:00 05/13/24 12:00 05/13/24 12:00 05/13/24 12:00 05/13/24 12:00 05/13/24 12:00 Objective Labs 05/13/24 05:21 05/13/24 05:21 Labs: Laboratory Results - last 24 hr 05/12/24 05/13/24 14:25 05:21 WBC 5.6 RBC 3.40 L Hgb 9.7 L Hct 29.9 L MCV 88 MCH 28.5 MCHC 32.4 RDW Std Deviation 49.4 H Plt Count 228 Neut % (Auto) 71 Lymph % (Auto) 19 [place]anan % (Auto) 7 Eos % (Auto) 3 Baso % (Auto) 1 Neut # (Auto) 3.9 Lymph # (Auto) 1.1 [place]anan # (Auto) 0.4 Eos # (Auto) 0.1 Baso # (Auto) 0.0 Immature Gran # (Auto) 0.03 H Absolute Nucleated RBC 0.00 Immature Gran % 1 H Nucleated RBC % 0 Sodium 137 Potassium 5.7 H 4.6 D Chloride 110 H Carbon Dioxide 20.0 Anion Gap 7 BUN 37 H Creatinine 1.7 H Estim Creat Clear Calc 49.4 L eGFR 45 L BUN/Creatinine Ratio 22 H Glucose 84 Calculated Osmolality 281 Calcium 9.1 Corrected Calcium 9.4 Phosphorus 3.9 Magnesium 2.0 Total Bilirubin 0.4 AST 17 ALT 19 Alkaline Phosphatase 99 Total Protein 6.1 Albumin 3.6 Globulin 2.5 Albumin/Globulin Ratio 1.4 Impressions Impression: Esophageal ulcers Continue current management Okay to discharge the patient home ABG Interpretation ABG results: 05/11/24 15:32 VBG pH 7.40 VBG pCO2 33 L VBG pO2 30 VBG Base Excess -4 L Assessment & Plan A&P Narrative # Melena with FOBT positive in a patient on Eliquis for chronic atrial fibrillation Plan Agree with holding the Eliquis N.p.o. midnight tonight Fiberoptic esophagogastroduodenoscopy with possible therapeutic intervention under intravenous moderation scheduled for tomorrow Consent will be obtained from the family and the patient Other medical problems include CVA status post thrombectomy Coronary artery status post PCI Chronic A-fib ARIA on CKD Thank you very much for the opportunity to participate in care of this patient Time Spent With Patient Time: Total time spent is greater than 50% in coordination of care (as documented) at patient's floor/unit and/or counseling patient:
--- NOTE | 2024-05-13 15:33 | ESDS_ITS ---
Planned Discharge Date 05/13/24 DS: Providers Provider Date of admission: 05/11/24 18:24 Primary care physician: Wilfredo Navarro MD Admitting Provider: Bam Hodge DO Attending Provider on Admission: Bam Hodge DO Consults: 05/11/24 17:53 Consult to Gastroenterology Stat Comment: Consulting Provider: Nadia Claros 05/11/24 18:28 Consult to Nephrology Stat Comment: ARIA Consulting Provider: Sarah Devries 05/11/24 18:51 Referral Wound Care Stat Comment: 05/12/24 13:51 Referral Wound Care Stat Comment: pt has stage 2 in coccyx Attending Provider on DC: Bam Hodge DO Discharging Provider: Bam Hodge DO DS: Diagnosis Problem List Completed Was Problem List Reviewed/Reconciled?: Yes Hospital Course Hospital Course Hospital course: DC summary: This patient is a 64-year-old male with past medical history of CAD post PCI, hypertension, hyperlipidemia, A-fib on Eliquis, CVA status post thrombectomy in 2023 presented with weakness and confusion. Patient also noticed to have several episodes of diarrhea. Stool occult blood was positive on admission. Patient was admitted for GI bleed and acute kidney injury. Anticoagulation, head CT was unremarkable. Plavix and Eliquis were held. EGD report showed esophageal ulcers with erythematous mucosa in the antrum. Diagnosis of peptic ulcer disease was made. We continued him on Protonix 40 mg IV twice daily and recommended to avoid NSAIDs. Blood cultures came negative for 48 hours. Renal ultrasound showed small atrophic kidney. Hyperkalemia resolved with breathing treatment. Nephrology recommended to to manage with fluids due to which ARIA on CKD slightly improved. Lactic acidosis resolved. Patient had improvement in his mentation. GI specialist recommended to reduce the dose of Eliquis to 2.5 mg once a day and continue Plavix given high risk of stroke and closure of stent. He also recommended to continue Protonix 40 mg p.o. twice daily. Patient's home medications were also resumed. Wound care was given for his chronic wounds. Patient's home medication famotidine was discontinued and was given Protonix. Patient was examined at the bedside this morning and he was medically stable to be discharged. He was discharged to home. #Problem list #Esophageal ulcers and erythematous mucosa. EGD #Peptic ulcer disease #ARIA versus ARIA on CKD #Hyperkalemia, resolved #Lactic acidosis, resolved #Acute encephalopathy, resolved #Chronic sacral stage II pressure ulcer #Chronic normocytic anemia #A-fib, rate controlled #History of hypertension #History of CAD status post PCI #History of hyperlipidemia #History of CVA status post thrombectomy #Depression DC instructions Take all home medication as prescribed Continue Taking plavix 75 once daily and eliquis has been reduced 2.5 mg once daily only Take Protonix 40 mg 2 times a day as you are diagnosed with peptic ulcer disease found on EGD Continue peptic ulcer bland diet educational material is given with the discharge packet Follow-up with PCP as outpatient within 2 weeks Follow-up with your vice president of business development as outpatient Follow-up with GI specialist, Dr. Claros as outpatient within 2 weeks Follow-up with web merchandiser as outpatient within 2 weeks In case of emergency, call 911 or come back to the ED -- Patient was seen and discussed with attending Physician,Dr Ayesha Corado MD,PGY2 Time Spent with Patient Time attestation: Total time spent providing and/or coordinating discharge services: Home Health Home Health Referral Orders: 05/12/24 14:21 Home Health Referral Routine Reason For Exam: debility Home-Bound The patient must either because of illness or injury, need the aid of suppor tive devices such as crutches, canes, wheelchairs, and walkers; the use of special transportation; or the assistance of another person in order to leave their place of residence; OR have a conditi on such that leaving his or her home is medically contraindicated. In addition, the patient also meets the following criteria: patient is normally unable to leave the home and leaving home requires considerable taxing effort. Addendum to Home Health Certification Practitioner's Certification: I certify that the patient has been under my care in the hospital and the care of attending physician (see below). We had a [id number] encounter on (see date below). My clinical findings indicate that the patient is home bound per the above criteria and the Home Health Services noted in these orders are medically necessary. The primary reason for the [id number]-[id number] encounter is related to the fact that the patient requires home health services. Date Certifying [id number] Physician Encounter: 05/11/24 Physician's Name who will Assume Oversight for Services: Wilfredo Navarro Physician's Phone No.who will Assume Oversight for Service: SPEECH LANGUAGE SPECIALIST - Community Resources: No PT to Evaluate: Yes PT to evaluate and provide a treatmnet plan to increase patient's mobility and strength. Wound Care: Yes Home Health RN - Wound Care Order: sacral ulcer dressing changes/eval IV Therapy: No Discontinue PICC Line Once Treatment Complete: No RN Safety Evaluation: Yes RN to evaluate and create a plan of care that will produce positive outcomes. Palliative Treatment: No Palliative treatment and evaluate the need for hospice. Home Health Aide - Personal Care: No Home Health Aide to assist with any ADL's. Exam Vital Signs Temp Pulse Resp BP Pulse Ox O2 Del Method O2 Flow Rate 98.6 F 75 16 118/66 99 Room Air 3 05/13/24 12:05/13/24 12:05/13/24 12:05/13/24 12:05/13/24 12:05/13/24 12:05/13/24 12:00 Narrative Exam General: AOx3, able to speak full sentences, resting comfortably in bed, pleasant HEENT: NC/AT, mucous membranes moist, bilateral sclera anicteric Cardiovascular: regular rate and rhythm, S1/S2 present, no murmurs appreciated Pulmonary: clear to auscultation bilaterally, no rales/rhonchi/wheezes Abdominal: soft, non-tender, non-distended, no rebound/guarding, normal bowel sounds present Musculoskeletal: scoliosis of spine, stage II pressure ulcer on sacrum, no peripheral edema Neuro: CN II-XII intact, no focal deficits Discharge Plan Plan Patient Disposition: HOME (Self Care) Care Plan Goals: Take all home medication as prescribed Continue Taking plavix 75 once daily and eliquis has been reduced 2.5 mg once daily only Take Protonix 40 mg 2 times a day as you are diagnosed with peptic ulcer disease found on EGD Continue peptic ulcer bland diet educational material is given with the discharge packet Follow-up with PCP as outpatient within 2 weeks Follow-up with your vice president of business development as outpatient Follow-up with GI specialist, Dr. Claros as outpatient within 2 weeks Follow-up with web merchandiser as outpatient within 2 weeks In case of emergency, call 911 or come back to the ED Prescriptions/Referrals Prescriptions/Med Rec: New pantoprazole 40 mg tablet,delayed release (DR/EC) 40 mg PO BID Qty: 60 0RF Continued spironolactone 25 mg tablet 12.5 mg PO QDAY nitrofurantoin monohyd/m-cryst [Macrobid] 100 mg capsule 100 mg PO BID Rx Instructions: must administer with a meal/food tamsulosin 0.4 mg capsule 0.4 mg PO QHS diltiazem HCl 60 mg capsule,extended release 12 hr 60 mg PO TID Qty: 85 3RF losartan 50 mg tablet 50 mg PO QDAY Qty: 30 3RF atorvastatin 80 mg Tablet 80 mg PO QPM isosorbide mononitrate 30 mg Tablet Extended Release 24 Hr 30 mg PO QDAY clopidogrel 75 mg Tablet 75 mg PO QDAY amlodipine 10 mg Tablet 10 mg PO QDAY megestrol 40 mg Tablet 40 mg PO BID escitalopram oxalate 10 mg Tablet 10 mg PO QDAY metoprolol tartrate 25 mg Tablet 25 mg PO QDAY Changed ferrous sulfate [Feosol] 1 TAB tablet 650 mg PO EVERYOTHERDAY Qty: 60 0RF Eliquis 2.5 mg tablet 2.5 mg PO QDAY Qty: 60 2RF Discontinued clindamycin HCl 300 mg Capsule 300 mg PO Q6H famotidine 20 mg Tablet 20 mg PO QDAY pantoprazole 40 mg Tablet,Delayed Release (Dr/Ec) 40 mg PO QDAY Referrals: Nadia Claros MD [Physician] - Wilfredo Navarro MD [Primary Care Provider] - Patient/Caregiver Discharge Instructions Education Materials: Bleeding Peptic Ulcer: Treatment Print Language: Uruguayan Stand Alone Forms: Caterina Award Info., Patient Portal Info Letter Discharge Order Discharge Orders: Discharge (Routine); Ordered 05/13/24 Ordered By: Molina Corado Quality Discharge Quality Measures VTE prophylaxis Attestestation Attestation I have discussed and was present for the essential components of the discharge history, physical examination, diagnosis, and discharge treatment plan with the resident. I agree with the patient's discharge care as documented by the resident and amended herein by me. Kristopher Hodge DO. The patient understood all discharge instructions, all questions were answered satisfactorily. The patient was instructed to return to the Emergency Department is symptoms worsened or persisted. Although this document has been carefully reviewed, there may still be some phonetic and other typographical errors. These errors are purely grammatical due to imperfections in the software program and should not be construed in any way to compromise the substance of the patient's medical care during this visit.
--- NOTE | 2024-05-13 16:08 | PC.SS ---
SS spoke with pt and spouse, they confirmed having family member (nephew) at home who can assist with transporting pt from the car to wheelchair to take him in; SS confirmed pt is able to move around house with wheelchair and nephew recently received [employer] and will assist pt with needs such as doctor's appointments and any transportation needs SS spoke with Manan, no wheelchair assistance available this evening SS spoke with pt and spouse at bedside, willing to look at getting [facility] services since pt is able to transport via wheelchair SS spoke with Chandni Fofana, confirmed pt medi-care was recently discontinued SS learned pt needed ambulance assistance if possible; pt has wheelchair but difficulty getting in and out of wheelchair; family is able to assist but wanted to make easier transisition from hospital to home SS met with pt bedside; pt alert and oriented x4; went over medicare
--- NOTE | 2024-05-14 11:50 | PC.CC ---
Addendum entered by Dina Vick RN 05/14/24 12:33: [facility] accepted the pt. Booked [facility]. Resume of care date is 05/15/24. Original Note: Pt is open with [facility]. HH referral sent on [facility]. Awaiting responses. Pending resume of care date.
== END 2024-05-13 15:47 | disposition home or self-care (01) | DRG 381 ==
LOC: SERX 17:31 → SERHOLD 05-12 06:25 → S3NX 05-12 06:25
PROVIDERS: Specialist; Student in an Organized Health Care Education/Training Program; Admitting Provider Student in an Organized Health Care Education/Training Program; Emergency Provider Emergency Medicine; PCP Family Medicine; Visit Provider Student in an Organized Health Care Education/Training Program
PROC: 0DJ08ZZ Inspection of Upper Intestinal Tract, Via Natural or Artificial Opening Endoscopic (ICD-10-PCS; CPT 43239; principal; 2024-05-12 16:30)
DX: K22.11 Ulcer of esophagus with bleeding (principal); E87.20 Acidosis, unspecified; I48.20 Chronic atrial fibrillation, unspecified; N17.9 Acute kidney failure, unspecified; I48.92 Unspecified atrial flutter; G93.40 Encephalopathy, unspecified; F32.A Depression, unspecified; I25.10 Atherosclerotic heart disease of native coronary artery without angina pectoris; E78.5 Hyperlipidemia, unspecified; I12.9 Hypertensive chronic kidney disease with stage 1 through stage 4 chronic kidney disease, or unspecified chronic kidney disease; E87.5 Hyperkalemia; H91.93 Unspecified hearing loss, bilateral; H91.90 Unspecified hearing loss, unspecified ear; L89.152 Pressure ulcer of sacral region, stage 2; M41.9 Scoliosis, unspecified; N18.9 Chronic kidney disease, unspecified; E86.0 Dehydration; D63.1 Anemia in chronic kidney disease; Z95.5 Presence of coronary angioplasty implant and graft; N27.1 Small kidney, bilateral; Z79.01 Long term (current) use of anticoagulants; Z86.73 Personal history of transient ischemic attack (TIA), and cerebral infarction without residual deficits; Z74.01 Bed confinement status; Z89.021 Acquired absence of right finger(s); Z88.2 Allergy status to sulfonamides; Z88.1 Allergy status to other antibiotic agents; R79.1 Abnormal coagulation profile; Z79.02 Long term (current) use of antithrombotics/antiplatelets
CPT/HCPCS: 36415; 70450; 71045; 76770; 80048; 80053; 80069; 80307; 80320; 81001; 82140; 82436; 82570; 82803; 83605; 83735; 83880; 84100; 84132; 84133; 84145; 84300; 84484; 84540; 85025; 85610; 85730; 86850; 86900; 86901; 87040; 93005; 93225; 94640; 99285; A4217; A9270; J1200; J2250; J2470; J3010; J3475; J7030; J7040; J7120; G0480

== ENCOUNTER 2024-06-15 16:09 | Emergency (ER) | payer MEDICARE, MEDICAID, SELFPAY ==
[2024-06-15] VITALS (7 sets, daily range): BP systolic 111–156; BP diastolic 67–89; PULSE 59–85; RESP 16–100; TEMP 36.1–37.1; O2SAT 99–100; BMI 28.3
--- NOTE | 2024-06-15 17:09 | EKG_ITS ---
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
--- NOTE | 2024-06-15 17:10 | XR_ITS ---
Examination: AP chest single view Technique: AP portable chest single view Exam date and time: June 09, 2024 1545 hrs. Comparison May 07, 2024 Indications: Sepsis alert today Findings: Minor subsegmental atelectasis at both bases No lobar pneumonia Normal heart size Impression: No pneumonia identified
--- NOTE | 2024-06-15 17:15 | PD.EDWEAK ---
ED Weakness RME/HPI General Chief complaint: Weakness Stated complaint: GENERALIZED WEAKNESS Time Seen by Provider: 06/15/24 16:58 Arrival date/time: 06/15/24 16:09 RME / HPI RME / HPI Narrative: 64-year-old male with past medical history of CAD post PCI, hypertension, hyperlipidemia, chronic A-fib was brought in by EMS for evaluation regarding possible back infection. Patient is nonambulatory since the start of COVID-19. Patient's been having redness and pain and drainage to the thoracic spine area, for the last 1 week, getting worse, today patient is unable to help transfer from bed to the car due to pain. Patient is bedbound. He had a history of bilateral buttocks stage II ulcer. Patient was noted to be afebrile in the triage. No cough no other complaints noted. Related Data Home Medications ?Medication ?Instructions ?Recorded ?Confirmed spironolactone 25 mg tablet 50 mg PO QDAY 08/20/20 06/15/24 atorvastatin 80 mg tablet 80 mg PO QPM 10/20/23 06/15/24 clopidogrel 75 mg tablet 75 mg PO QDAY 10/20/23 06/15/24 escitalopram oxalate 10 mg tablet 10 mg PO QDAY 10/20/23 06/15/24 isosorbide mononitrate 30 mg 30 mg PO QDAY 10/20/23 06/15/24 tablet,extended release 24 hr metoprolol tartrate 25 mg tablet 25 mg PO BID 10/20/23 06/15/24 apixaban 2.5 mg tablet (Eliquis) 2.5 mg PO BID 06/15/24 06/15/24 clindamycin HCl 300 mg capsule 300 mg PO TID 06/15/24 06/15/24 famotidine 20 mg tablet 20 mg PO .bed 06/15/24 06/15/24 ferrous sulfate 325 mg (65 mg 325 mg PO BID 06/15/24 06/15/24 iron) tablet (Feosol) Previous Rx's ?Medication ?Instructions ?Recorded diltiazem HCl 60 mg 60 mg PO TID #85 caps 09/22/21 capsule,extended release 12 hr losartan 50 mg tablet 50 mg PO QDAY #30 tabs 09/22/21 pantoprazole 40 mg tablet,delayed 40 mg PO BID #60 tabs 05/13/24 release Allergies Allergy/AdvReac Type Severity Reaction Status Date / Time bee pollen Allergy Severe Anaphylaxis Verified 10/20/23 11:23 Sulfa (Sulfonamide Allergy Intermediate Swelling Verified 10/20/23 11:23 Antibiotics) of Lip/Tongue/Throat ampicillin Allergy Unknown Hives Verified 10/20/23 11:23 hydrocodone AdvReac Unknown Nausea Verified 10/20/23 11:23 COLLAGEN Allergy Intermediate Rash Uncoded 10/20/23 11:23 Review of Systems Review of Systems Narrative Review of Systems: Review of system reviewed and within normal limits except mentioned in HPI ED Exam Narrative Physical exam: VITAL SIGNS: Reviewed. GENERAL APPEARANCE: Alert and interactive, follows commands, no acute distress, HEAD AND FACE: Non-traumatic. ENT: PERRL, pink conjunctivitis, eyelid no trauma, Mucous membrane moist. NECK: Supple, nontender, no nuchal rigidity. CHEST: No tenderness, no crepitus, no paradoxical movement, no retractions. LUNGS: Clear, well ventilated, symmetric, no rales, no wheezing, no ronchi, no stridor, good breath sounds bilaterally. HEART: Regular rate, regular rhythm, no murmur, no gallops. ABDOMEN: Soft, positive bowel sounds, nondistended, no guarding, nontender, no rebound, no masses, RECTAL: Deferred. GENITAL: Deferred. NEUROLOGICAL: Gross motor function intact sensory function intact, Appropriate for age. MUSCULOSKELETAL: Redness with subcutaneous emphysema noted on the thoracic lumbar spine area with an open wound, and draining serosanguineous fluid, with tenderness, full range of motion. EXTREMITIES: Nontender, limited lower extremity range of motion. SKIN: Color pink, dry, no rash, no lacerations, no abrasions, no contusions. LYMPHATICS: Deferred. Course Quality Measures none Orders Category Date Time Status Chief Vendor Quality STAT Care 06/15/24 17:09 Active Continuous Pulse Oximetry STAT Care 06/15/24 17:09 Completed EKG (ED ONLY) *Do not use* NOW Care 06/15/24 17:09 Completed Insert IV NOW Care 06/15/24 17:09 Active NPO STAT Care 06/15/24 17:09 Active Strict Intake and Output Routine Care 06/15/24 17:[address] lumbar spine wo con Stat Exams 06/15/24 17:[address] thoracic spine wo con Stat Exams 06/15/24 17:19 Completed EKG (ED Only) Stat Exams 06/15/24 17:09 Draft XR chest 1V SEPSIS PROTOCOL Stat Exams 06/15/24 17:10 Completed B-Type Natriuretic Peptide Stat Lab 06/15/24 18:15 Completed Blood Culture (Lab) Stat Lab 06/15/24 17:35 Received CBC Stat Lab 06/15/24 18:15 Completed CBC [CBC] Routine Lab 06/16/24 09:00 Completed CMP [Comprehensive Metabolic Panel] Routine Lab 06/16/24 09:31 Completed CRP [C-Reactive Protein] Stat Lab 06/15/24 23:35 Completed Comprehensive Metabolic Panel Stat Lab 06/15/24 18:15 Completed ESR [Sed Rate (ESR)] Stat Lab 06/15/24 21:49 Completed LDH (Lactate Dehydrogenase) Stat Lab 06/15/24 18:15 Completed Lactate (Lactic Acid) Stat Lab 06/15/24 18:15 Completed Lactic Acid, 3 HR Stat Lab 06/15/24 21:49 Completed Lipase Stat Lab 06/15/24 18:15 Completed Magnesium Stat Lab 06/15/24 18:15 Completed Partial Thromboplastin Time Stat Lab 06/15/24 18:15 Completed Phosphorous Stat Lab 06/15/24 18:15 Completed Procalcitonin Stat Lab 06/15/24 18:15 Completed Prothrombin Time with INR Stat Lab 06/15/24 18:15 Completed Troponin I Stat Lab 06/15/24 18:15 Completed Urinalysis Stat Lab 06/15/24 19:48 Completed Urine Culture Stat Lab 06/15/24 19:48 Received Wound Culture and Gram Stain Stat Lab 06/15/24 23:42 Received Cefepime Inj [Maxipime Inj] 2 gm Med 06/16/24 21:00 Active SODIUM CHLORIDE 0.9% (Popper) [Ns 0.9% (P)] 50 ml IV HS Cefepime Inj [Maxipime Inj] 2 gm Med 06/15/24 23:30 Discontinued SODIUM CHLORIDE 0.9% (Popper) [Ns 0.9% (P)] 50 ml IV X1 Ringers Lactated 1000 ml [Lactated Ringers] 1,000 ml Med 06/15/24 17:10 Discontinued IV 999 mls/hr Vancomycin/Ns 1 gm Ivpb 200 ml Med 06/15/24 17:11 Discontinued IV X1 cefTRIAXone/D5w 1gm IV premix [Rocephin/D5w 1gm IV Med 06/15/24 17:13 Discontinued premix] 1 gm in 50 ml IV STAT metroNIDAZOLE/NS 500 MG IVPB [Flagyl 500 mg IV] Med 06/16/24 14:00 Active 500 mg in 100 ml IV Q8HR metroNIDAZOLE/NS 500 MG IVPB [Flagyl 500 mg IV] Med 06/15/24 20:07 Discontinued 500 mg in 100 ml IV X1 metroNIDAZOLE/NS 500 MG IVPB [Flagyl 500 mg IV] Med 06/16/24 05:15 Discontinued 500 mg in 100 ml IV X1 Oxygen Delivery NOW RT 06/15/24 17:09 Active Vital Signs Vital signs: Vital Signs Temperature 97 F 06/15/24 16:39 Pulse Rate 59 L 06/15/24 16:39 Blood Pressure 111/77 06/15/24 16:39 Pulse Oximetry (%) 99 06/15/24 16:39 Weakness MDM Narrative MDM Narrative:: 64-year-old male with past medical history of CAD post PCI, hypertension, hyperlipidemia, chronic A-fib was brought in by EMS for evaluation regarding possible back infection. Patient's been having redness and pain and drainage to the thoracic spine area, for the last 3 days, getting worse, today patient is unable to help transfer from bed to the machine with the use of a Mini lift. Patient also complain of pain described as dull ache, severity moderate. Patient normally is nonambulatory. Patient is bedbound. He had a history of bilateral buttocks stage II ulcer. Patient was noted to be afebrile in the triage. CBC showed no leukocytosis. Lactic acid of 3.1 CT scan of the thoracic spine showed Soft tissue infection/abscess posterior to the lower thoracic spine with osteomyelitis involving posterior spinous processes T11, T12 Recommend MRI thoracic spine follow-up pre and postcontrast CT scan of the lumbar spine showed Osteomyelitis posterior spinous processes L1, right articulating facet L2 Soft tissue abscess posterior to T12-L1, Recommend MRI lumbar spine follow-up pre and postcontrast Patient received IV fluids, IV vancomycin, IV ceftriaxone, and IV Flagyl. Patient is to be transferred to higher level care with neuro spine surgeon capability. Care transferred to Dr Brunson at 11 pm for final disposition Patient data External records reviewed:: None Clinical information provided by:: patient and family Social determinants that could affect healthcare access:: none Patient has the following chronic illnesses:: Chronic debility, hypertension How is presenting disease/condition affected by chronic disease/condition?: exacerbated by Evaluation data The following diagnostics were reviewed and interpreted by me:: lab results and radiology exam(s) Lab and/or radiology exams considered but not ordered:: None Interpretation Summary: See results MDM Medications / Prescriptions Medications or Prescriptions considered but not ordered:: None Medication administrations:: Medication Administration History Cefepime HCl 2 gm/ Sodium (Chloride) 50 mls @ 100 mls/hr IV HS HANNAH Stop: 06/23/24 20:59 Metronidazole (Flagyl 500 Mg Iv) 500 mg in 100 mls @ 200 mls/hr IV Q8HR HANNAH Stop: 06/23/24 13:59 Discontinued Medications Lactated Ringer's (Lactated Ringers) 1,000 mls @ 999 mls/hr IV .Q1H1M ONE Stop: 06/15/24 18:10 Last Infusion: 06/15/24 18:38 Dose: Infused Documented By: Admin: 06/15/24 17:18 Dose: 999 mls/hr Documented By: GM Vancomycin/Sodium Chloride (Vancomycin/Ns 1 Gm Ivpb) 200 mls @ 120 mls/hr IV X1 ONE Stop: 06/15/24 18:50 Last Infusion: 06/15/24 20:48 Dose: Infused Documented By: Admin: 06/15/24 19:07 Dose: 120 mls/hr Documented By: BD Ceftriaxone Sodium/Dextrose (Rocephin/D5w 1gm Iv Premix) 1 gm in 50 mls @ 100 mls/hr IV STAT STA Stop: 06/15/24 17:42 Last Infusion: 06/15/24 19:08 Dose: Infused Documented By: Admin: 06/15/24 18:42 Dose: 100 mls/hr Documented By: DB Metronidazole (Flagyl 500 Mg Iv) 500 mg in 100 mls @ 100 mls/hr IV X1 ONE Stop: 06/15/24 21:06 Last Infusion: 06/15/24 21:22 Dose: Infused Documented By: Admin: 06/15/24 20:52 Dose: 100 mls/hr Documented By: BD Cefepime HCl 2 gm/ Sodium (Chloride) 50 mls @ 100 mls/hr IV X1 ONE Stop: 06/15/24 23:59 Last Infusion: 06/16/24 00:07 Dose: Infused Documented By: Admin: 06/15/24 23:33 Dose: 100 mls/hr Documented By: BD Metronidazole (Flagyl 500 Mg Iv) 500 mg in 100 mls @ 200 mls/hr IV X1 ONE Stop: 06/16/24 05:44 Last Infusion: 06/16/24 05:47 Dose: Infused Documented By: Admin: 06/16/24 05:12 Dose: 200 mls/hr Documented By: BD IV Flagyl, suppression IV vancomycin IV IV fluid hydration Consultations Consultation(s) initiated? (list below): Yes Consultation #1 (Physician, Specialty, Details): Spoke with neurosurgeon from [facility], who told me to transfer this patient to their ER centers for complicated case of spinal abscess/osteomyelitis of the spine Diagnosis Weakness Differential Diagnosis: rhabdomyolysis (Osteomyelitis spine, abscess spine,) and other Most likely diagnosis given after review of the tests above:: Abscess spine Admission Indicated Admission indicated?: indicated Explain why admission is indicated or not indicated:: For transfer to tertiary center Admission Request Was there a request for admission?: No Disposition Plan Disposition Plan: other (specify) Discharge Attestation Discharge Attestation: Final disposition Discharge Plan Prescriptions/Referrals Prescriptions/Med Rec: No Action spironolactone 25 mg tablet 50 mg PO QDAY Rx Instructions: 50 mg 1 tab orally daily; diltiazem HCl 60 mg capsule,extended release 12 hr 60 mg PO TID Qty: 85 3RF losartan 50 mg tablet 50 mg PO QDAY Qty: 30 3RF pantoprazole 40 mg tablet,delayed release (DR/EC) 40 mg PO BID Qty: 60 0RF atorvastatin 80 mg Tablet 80 mg PO QPM isosorbide mononitrate 30 mg Tablet Extended Release 24 Hr 30 mg PO QDAY clopidogrel 75 mg Tablet 75 mg PO QDAY escitalopram oxalate 10 mg Tablet 10 mg PO QDAY metoprolol tartrate 25 mg Tablet 25 mg PO BID clindamycin HCl 300 mg capsule 300 mg PO TID famotidine 20 mg tablet 20 mg PO .bed Patient Comments: TAKE 1 TABLET BY MOUTH EVERY DAY AT BEDTIME NEEDED FOR 30 DAYS ferrous sulfate [Feosol] 1 TAB tablet 325 mg PO BID Eliquis 2.5 mg tablet 2.5 mg PO BID Referrals: Wilfredo Navarro MD [Primary Care Provider] - In 1 week Problem List Clinical Impression: Thoracic abscess Patient/Caregiver Discharge Instructions Print Language: Ivorian
[2024-06-15] MEDS: RINGERS LACTATED 1000 ML 1,000 ML 999 ML IV (17:18)
--- NOTE | 2024-06-15 17:19 | XR_ITS ---
Examination: CT lumbar spine without intravenous contrast, 2-D sagittal reconstructions. 2-D coronal reconstructions. 3-D reconstructions. Date and time of exam:June 15, 2024 1832 hrs. Indications: Low back pain with fever today CTDI: vol (mGy):24.7 DLP: (mGycm):823 Technique: Multiple 1.25 mm axial sections of the lumbar spine without intravenous contrast have been obtained. 2-D sagittal and coronal reconstructions have been obtained. 3-D reconstructions have been obtained. Low dose protocols were performed. One or more of the following dose reduction techniques were used; automated exposure control, adjustment of the mA and/or KV according to patient size, use of iterative reconstruction technique. Findings: Severe osteopenia Grade 1 anterolisthesis L4 on L3 Chronic osteoporotic compression superior endplates L1 11 Periosteal new bone formation involving the posterior spinous process L1, cortical bone destruction involving the facet at L2 on the right Air density in the soft tissue posterior to T12-L1 with isointense soft tissue replacing the normal fatty tissue, transverse dimension 5.3 cm AP dimension 3.0 cm, cephalad caudad dimension at least 10 cm Impression: Osteomyelitis posterior spinous processes L1, right articulating facet L2 Soft tissue abscess posterior to T12-L1, Recommend MRI lumbar spine follow-up pre and postcontrast
--- NOTE | 2024-06-15 17:19 | XR_ITS ---
Examination: CT thoracic spine, without contrast. 2-D sagittal reconstructions. 2-D coronal reconstructions. 3-D reconstructions. Date and time of exam:June 15, 2024 1823 hrs. Back pain fever leukocytosis today CTDI: vol (mGy):25 DLP: (mGycm):854 Technique: Multiple 1.25 mm axial sections of the thoracic spine have been obtained. 2-D sagittal and coronal reconstructions have been obtained. 3-D reconstructions have been obtained. Low dose protocols were performed. One or more of the following dose reduction techniques were used; automated exposure control, adjustment of the mA and/or KV according to patient size, use of iterative reconstruction technique. Findings: Soft tissue infection with air densities posterior to T12-T8, mediolateral dimension at least 3.7 cm AP dimension 3 cm cephalad caudad dimension at least 13 cm Erosion of the posterior spinous processes T11-T12 Impression: Soft tissue infection/abscess posterior to the lower thoracic spine with osteomyelitis involving posterior spinous processes T11, T12 Recommend MRI thoracic spine follow-up pre and postcontrast
[2024-06-15 18:22] LABS: Lactate (Lactic Acid) 3.1 mMol/L (0.4-2.0)
[2024-06-15 18:29] LABS: Basophils % (Auto) 0 % (0-2.5); Eosinophils % (Auto) 0 % (0-10); Hematocrit 25.7 % (41.0-53.0); Immature Granulocytes % (Auto) 2 % (0-0); Immature Granulocytes Auto 0.14 Thou/mm3 (0.00-0.00); Lymphocytes # (Auto) 0.5 Thou/mm3 (1.0-4.8); Lymphocytes % (Auto) 6 % (10-50); Mean Corpuscular HGB Conc 31.9 g/dl (31.0-37.0); Mean Corpuscular Hemoglobin 27.2 pg (25.0-35.0); Mean Corpuscular Volume 85 fL (80-100); Monocytes # (Auto) 0.6 Thou/mm3 (0.0-0.8); Monocytes % (Auto) 6 % (0-12); Neutrophils # (Auto) 8.2 Thou/mm3 (1.8-7.7); Neutrophils % (Auto) 86 % (37-80); Nucleated Red Blood Cell % 0 /100 WBC (0); Platelet Count 456 Thou/mm3 (140-440); RDW Standard Deviation 51.9 fL (35.1-43.9); Red Blood Count 3.01 Miln/mm3 (4.50-5.90); White Blood Count 9.5 Thou/mm3 (3.8-10.6)
[2024-06-15] MEDS: cefTRIAXone/D5w 1gm IV premix 1 GM/50 ML BAG IV (18:42)
[2024-06-15 18:50] LABS: Hemoglobin 8.2 g/dL (13.5-16.0)
[2024-06-15 18:53] LABS: B-Type Natriuretic Peptide 173 pg/mL (0-100)
[2024-06-15 18:56] LABS: INR 1.5 (0.9-1.3); Partial Thromboplastin Time 38.4 Seconds (22.0-36.0); Prothrombin Time 15.6 Seconds (9.0-12.2)
[2024-06-15] MEDS: VANCOMYCIN/NS 1 GM IVPB 200 ML IV (19:07)
[2024-06-15 19:18] LABS: Alanine Aminotransferase 20 U/L (10-49); Albumin, Serum 3.7 gm/dL (3.4-4.8); Alkaline Phosphatase 151 U/L (46-116); Anion Gap 12 (7-16); Aspartate Amino Transferase 23 U/L (0-34); BUN/Creatinine Ratio 20 Ratio (12-20); Bilirubin,Total 0.4 mg/dL (0.3-1.2); Blood Urea Nitrogen 45 mg/dL (9-23); Calcium 9.1 mg/dL (8.3-10.6); Calcium (Corrected) 9.3 mg/dL (8.5-10.1); Carbon Dioxide 18.6 mMol/L (20.0-31.0); Chloride 105 mMol/L (98-107); Creatinine (Component) 2.3 mg/dL (0.6-1.3); Estimated Creatinine Clearance 28.7 mL/min (>60); Globulin 3.7 gm/dL (2.3-3.5); Glucose 99 mg/dL (74-106); LDH (Lactate Dehydrogenase) 152 U/L (120-246); Lipase 26 U/L (12-53); Magnesium 1.7 mg/dL (1.6-2.6); Osmolality,Calculated 283 (275-295); Phosphorous 3.3 mg/dL (2.4-5.1); Potassium 4.5 mMol/L (3.4-5.1); Procalcitonin 0.18 ng/ml (0.0-0.49); Sodium 136 mMol/L (136-145); Total Protein 7.4 gm/dL (5.7-8.2); Troponin I < 0.020 ng/mL (0.0-0.045); eGFR 31 See Note
--- NOTE | 2024-06-15 19:53 | PC.NURSE ---
in and out cath not done pt as able to void
[2024-06-15 20:02] LABS: Collection Type, Urine Clean Catch
[2024-06-15 20:41] LABS: Bilirubin,Urine Negative (Negative); Blood,Urine Negative (Negative); Clarity,Urine Clear (Clear/Hazy); Color,Urine Lt-Yellow (Lt Yel-Yel); Glucose, Urine Negative (Negative); Ketones,Urine Negative (Negative); Leukocyte Esterase,Urine Positive (Negative); Nitrite,Urine Negative (Negative); Protein,Urine Negative (Neg - Trace); RBC,Urine 2 /hpf (0-3); Specific Gravity,Urine 1.013 (1.001-1.035); Squamous Epithelial Cell,Urine 5 /hpf (0-5); Urobilinogen,Urine Negative mg/dL (0.0-1.0); WBC,Urine 7 /hpf (0-5)
--- NOTE | 2024-06-15 20:48 | PC.NURSE ---
FAXED INFORMATION TO [facility].
--- NOTE | 2024-06-15 20:48 | PC.NURSE ---
LEX MACK FROM [facility] CALLED BACKMD TALKING TO LYNDSEY GILBERT AT THIS TIME.
[2024-06-15] MEDS: metroNIDAZOLE/NS 500 MG IVPB 500 MG/100 ML BAG 100 MG IV (20:52)
--- NOTE | 2024-06-15 20:54 | PC.NURSE ---
[facility] , [facility] TALKED TO DR. PEREZ, NEED HIGHER LEVEL SUSAN CARE.
[2024-06-15 21:21] LABS: Reflex Lactate? Y
[2024-06-15 21:54] LABS: Lactic Acid, 3 HR 0.9 mMol/L (0.4-2.0)
--- NOTE | 2024-06-15 23:01 | PD.EDADDENDU ---
Emergency Room Addendum Addendum Narrative: 2300: Care assumed from Fadia Zapata NP. Past medical, surgical, social and family history reviewed. Vitals and home medications reviewed. Results and treatment plan discussed. I will assume the care of the patient at this time and will follow the patient, pending transfer. Please refer to the emergency department record for history and examination from initial visit. 2307: Patient is resting comfortably. He is not hypotensive. Patient has a wound to the midline of his back extending from the nipple line to the umbilicus with a 5cm area of erythema, drainage of yellow pus, and is warm to touch. Will switch the patient from Ceftriaxone to Cefepime. 2330: Spoke with [facility]'s transfer center. States they will consult with their neurosurgeon and call us back. Request a Sed Rate and CRP. CRP is 13.3 and ESR is 54. 0145: [facility] called me back, stating the patient needs a spinal surgeon and neurosurgeon. They decline the patient due to not having spinal surgery available at their facility. 0600: Care signed out to Dr. Tuttle (emergency physician). Past medical, surgical, social and family history reviewed. Vitals and home medications reviewed. Results and treatment plan discussed. They will assume the care of the patient at this time and will follow the patient, pending transfer. At this time, observation has ended.
[2024-06-15] MEDS: CEFEPIME INJ 2 GM in SODIUM CHLORIDE 0.9% (Popper) 50 ML IV (23:33)
--- NOTE | 2024-06-15 23:46 | PC.NURSE ---
called caregiver to see when the last time pt took eliquis. left message no answer
[2024-06-16] VITALS (25 sets, daily range): BP systolic 107–152; BP diastolic 47–104; PULSE 70–96; RESP 12–23; TEMP 36.4–37; O2SAT 90–100
[2024-06-16 00:55] LABS: C-Reactive Protein 13.3 mg/dL (0.0-0.9)
[2024-06-16 01:00] LABS: Sed Rate (ESR) 54 mm/hr (0-20)
--- NOTE | 2024-06-16 01:47 | PC.NURSE ---
[facility] CALLED , DR. ESPINAL TALK TO MD, PT NEED OF HIGHER CARE FOR SPINAL AND NEURO SURGEON.
--- NOTE | 2024-06-16 03:12 | PC.NURSE ---
[facility] called for pt status will call back with update if accepted
--- NOTE | 2024-06-16 04:32 | PC.NURSE ---
[facility] CALLED BACK , ACCORDING TO THERE NEURO SURGEON PT DOES NOT NEED SURGERY, CAN BE MANGE WITH ANTIBIOTIC.
[2024-06-16] MEDS: metroNIDAZOLE/NS 500 MG IVPB 500 MG/100 ML BAG 200 MG IV ×2 (05:12→14:06)
--- NOTE | 2024-06-16 06:26 | PC.NURSE ---
CALLED AND GAVE INFORMATION ABOUT PT TO [facility].
--- NOTE | 2024-06-16 06:53 | PD.EDADDENDU ---
Emergency Room Addendum <Nicolette Rosales - Last Filed: 06/16/24 16:22> Addendum Narrative: 0600: Care assumed from Dr. Brunson the previous shift emergency physician. Past medical, surgical, social and family history reviewed. Vitals and home medications reviewed. I will assume the care of the patient at this time, pending transfer for neurosurgery. Please refer to the emergency department record for history and examination from initial visit.?The following addendum documentation note is intended to reflect any pending information, findings, or radiology results not included in the patient?s initial chart. EMS notes reviewed by me. Nursing notes reviewed by me. Vital signs reviewed by me. [place] medical records reviewed by me. 0650: Previous physician Dr. Brunson has spoken with neurosurgeon Dr. Monsalve at [facility]. States they are unable to accept the patient unless he has been off anticoagulation for 3 days. Advised transferring the patient to a jarrell that can reverse the Eliquis. This morning when I came on shift was able to do rounds about an hour later this patient is comfortable laying on his side inspection of the back reveals a large linear area of hyperpigmentation with some pus draining from the central opening. Which is a little higher than the lumbar area. Does not appear to be uncomfortable at this time. Medical workup reveals normal lactic acid and procalcitonin and does not appear to be septic. He does need formal washout and biopsies with a neurosurgeon or spine surgeon. 0700: Patient updated on plan to transfer and is in agreement with plan. 0905: I spoke with our transfer nurse Pee who reports at this [facility] is still reviewing the patients case. 0915: Our transfer nurse reports [facility] has declined the patient for transfer. 0959: I just spoke with transfer nurse at [facility] discussed the case at great length and patient needs to have the debridement and/or washout of the abscess and biopsies of the ostial segments possibly. This information was communicated to the transfer nurse. 1146: I spoke with resident Dr. Lowry working with Dr. Owen. Discussed patients PMHx, HPI, ED course, exam findings, labs, and radiology results. After multiple hours of trying to get this patient transferred with no success in speaking the transverse multiple times I placed a call to orthopedic surgeon was tied up we then called back at 1320 hrs. and states he cannot take this patient as he does not do back surgery recommend that this be transferred to a back surgeon. I would also talk to our hospitalist and they came down to see the patient and they cannot manage this patient without having a surgeon on board to drain the abscess. At this time which is 1332 hrs. I will continue trying to transfer the patient to a spinal surgeon. As this patient cannot be managed at this facility at this time. Also patient should be on antibiotics [id number] until transferred. 1450: I spoke with Maikol, transfer nurse at [facility]. Discussed patients PMHx, HPI, ED course, labs, and radiology results. 1513: I spoke with our transfer nurse Reports [facility] has called back and stated they are at capacity. However, will consult with their neurosurgeon. 1545: I just spoke with [facility] neurosurgeon for a protracted period of time and she wanted us to make sure this patient never had spinal surgery which her records and Tr our nurse practitioner who saw the patient yesterday absolutely reports there was never any spinal surgery in this patient ODALISNARINDER Male : 1960 MedRec# [id number] 06/16/24 08:20 - Designer Writer by Julius Wong RN Acct Num: [id number] : 1960 Patient Age: 64 Addendum entered by Julius Wong RN 06/16/24 12:21: Dr. Weir informed of declination by [facility] and [facility], he will consult hospitalist group and inform them of declinations for transfer and recommendations by Neurosurgeon to treat with antibiotics. He will update us if they are able to admit with consult to infectious disease specialist. Addendum entered by Julius Wong RN 06/16/24 11:03: Received call from MARTINA Reddy at [facility], informed us patient was declined by Dr. Carcamo, neurosurgery as patient may require anterior approach which they are unable to do. Addendum entered by Julius Wong RN 06/16/24 10:13: [facility] declined based on capacity. Addendum entered by Julius Wong RN 06/16/24 10:03: Call to [facility] to initiate transfer request, spoke with MARTINA Zuleta and provided clinical information. Addendum entered by Julius Wong RN 06/16/24 09:54: Called [facility] and spoke to MARTINA Reddy in the transfer center to initiate transfer request. Provided Clinical information. Addendum entered by Julius Wong RN 06/16/24 09:28: Transfer packet sent to [facility], [facility], and [facility]. Addendum entered by Julius Wong RN 06/16/24 09:02: Spoke with MARTINA Roberto at [facility] who informed us that patient was declined due to not having reversal agent available per Dr. Monsalve, Neurosurgery. Addendum entered by Julius Wong RN 06/16/24 08:26: Spoke with [facility] pharmacy Juan Antonio, who verified we do not have the reversal agent for Eliquis available. Original Note: Phone call to [facility], spoke with MARTINA Reddy who informed me that they are trying to obtain reversal agent for Eliquis prior to accepting patient as they would not be able to perform surgery for 72 hours, they will call us back with an update once they have one. Informed her that I would communicate with our pharmacist as well this morning and verify if we are able to administer reversal agent prior to transfer, and would then inform them if we were able to locate it, she was appreciative of this. Initialized on 06/16/24 08:20 - END OF NOTE <Toy Tuttle MD - Last Filed: 06/16/24 17:40> Addendum Narrative: 0600: Care assumed from Dr. Brunson the previous shift emergency physician. Past medical, surgical, social and family history reviewed. Vitals and home medications reviewed. I will assume the care of the patient at this time, pending transfer for neurosurgery. Please refer to the emergency department record for history and examination from initial visit.?The following addendum documentation note is intended to reflect any pending information, findings, or radiology results not included in the patient?s initial chart. EMS notes reviewed by me. Nursing notes reviewed by me. Vital signs reviewed by me. [place] medical records reviewed by me. 0650: Previous physician Dr. Brunson has spoken with neurosurgeon Dr. Monsalve at [facility]. States they are unable to accept the patient unless he has been off anticoagulation for 3 days. Advised transferring the patient to a jarrell that can reverse the Eliquis. This morning when I came on shift was able to do rounds about an hour later this patient is comfortable laying on his side inspection of the back reveals a large linear area of hyperpigmentation with some pus draining from the central opening. Which is a little higher than the lumbar area. Does not appear to be uncomfortable at this time. Medical workup reveals normal lactic acid and procalcitonin and does not appear to be septic. He does need formal washout and biopsies with a neurosurgeon or spine surgeon. 0700: Patient updated on plan to transfer and is in agreement with plan. 0905: I spoke with our transfer nurse Pee who reports at this [facility] is still reviewing the patients case. 0915: Our transfer nurse reports [facility] has declined the patient for transfer. 0959: I just spoke with transfer nurse at [facility] discussed the case at great length and patient needs to have the debridement and/or washout of the abscess and biopsies of the ostial segments possibly. This information was communicated to the transfer nurse. 1146: I spoke with resident Dr. Lowry working with Dr. Owen. Discussed patients PMHx, HPI, ED course, exam findings, labs, and radiology results. After multiple hours of trying to get this patient transferred with no success in speaking the transverse multiple times I placed a call to orthopedic surgeon was tied up we then called back at 1320 hrs. and states he cannot take this patient as he does not do back surgery recommend that this be transferred to a back surgeon. I would also talk to our hospitalist and they came down to see the patient and they cannot manage this patient without having a surgeon on board to drain the abscess. At this time which is 1332 hrs. I will continue trying to transfer the patient to a spinal surgeon. As this patient cannot be managed at this facility at this time. Also patient should be on antibiotics [id number] until transferred. 1450: I spoke with Maikol, transfer nurse at [facility]. Discussed patients PMHx, HPI, ED course, labs, and radiology results. 1513: I spoke with our transfer nurse Pee. Reports [facility] has called back and stated they are at capacity. However, will consult with their neurosurgeon. 1545: I just spoke with [facility] neurosurgeon for a protracted period of time and she wanted us to make sure this patient never had spinal surgery which her records and Tr our nurse practitioner who saw the patient yesterday absolutely reports there was never any spinal surgery in this patient A final note for the day at 1738 I have spoken to multiple transfer center personnel and neurosurgeons and have gotten nowhere with different opinions and how to manage this patient. Presently we will get an MRI with and without contrast to further define things. Patient is comfortable and appears better he is no distress We did obtain further information from the that this patient has never had back surgery ever although he had some type of cancer that got both chemo and radiation treatments at the age of 29. Patient does not know the type of cancer nor does the . They also noted that the pus started draining approximately week ago. There is also a past history of scoliosis. Evidently his cancer was treated in [place] many years ago at age 29 Below is a copy of the multiple calls that were made and some of them are probably still not documented. I have spent at least 90 minutes of time on the phone with multiple institutions trying to facilitate this transfer including talking to our local doctors and orthopedic surgeons. ODALISNARINDER Male : 1960 MedRec# [id number] 06/16/24 08:20 - Designer Writer by Julius Wong RN Acct Num: [id number] : 1960 Patient Age: 64 Addendum entered by Julius Wong RN 06/16/24 12:21: Dr. Weir informed of declination by [facility] and [facility], he will consult hospitalist group and inform them of declinations for transfer and recommendations by Neurosurgeon to treat with antibiotics. He will update us if they are able to admit with consult to infectious disease specialist. Addendum entered by Julius Wong RN 06/16/24 11:03: Received call from MARTINA Reddy at [facility], informed us patient was declined by Dr. Carcamo, neurosurgery as patient may require anterior approach which they are unable to do. Addendum entered by Julius Wong RN 06/16/24 10:13: [facility] declined based on capacity. Addendum entered by Julius Wong RN 06/16/24 10:03: Call to [facility] to initiate transfer request, spoke with MARTINA Zuleta and provided clinical information. Addendum entered by Julius Wong RN 06/16/24 09:54: Called [facility] and spoke to MARTINA Reddy in the transfer center to initiate transfer request. Provided Clinical information. Addendum entered by Julius Wong RN 06/16/24 09:28: Transfer packet sent to [facility], [facility], and [facility] [place]. Addendum entered by Julius Wong RN 06/16/24 09:02: Spoke with MARTINA Roberto at [facility] who informed us that patient was declined due to not having reversal agent available per Dr. Monsalve, Neurosurgery. Addendum entered by Julius Wong RN 06/16/24 08:26: Spoke with [facility] pharmacy, Juan Antonio, who verified we do not have the reversal agent for Eliquis available. Original Note: Phone call to [facility], spoke with MARTINA Reddy who informed me that they are trying to obtain reversal agent for Eliquis prior to accepting patient as they would not be able to perform surgery for 72 hours, they will call us back with an update once they have one. Informed her that I would communicate with our pharmacist as well this morning and verify if we are able to administer reversal agent prior to transfer, and would then inform them if we were able to locate it, she was appreciative of this. Initialized on 06/16/24 08:20 - END OF NOTE
--- NOTE | 2024-06-16 07:10 | PC.NURSE ---
[facility] [place] NEURO SURGEON CALLED AND TALKED TO DR. ESPINAL. PT NEED TO OFF BLOOD THINER FOR 72 HOURS BEFORE SUGERY.
--- NOTE | 2024-06-16 07:45 | PC.NURSE ---
Upon assumption of care pt is resting w/eyes closed, vss on tele, pt alert to voice, refuses to speak to this RN just shakes his head to questions. Pt in agreement w/POC.
--- NOTE | 2024-06-16 08:20 | PC.CM ---
Addendum entered by Julius Wong RN 06/16/24 18:30: 1828- Received call from MARTINA Caba at [facility], they have declined transfer due to capacity at this time. Informed ER Charge Nurse Tiffanie and ER MD Tuttle. Addendum entered by Julius Wong RN 06/16/24 17:46: 1735-Received call from MARTINA Caba at [facility], inquired if patient would be willing to go to [place] if he was accepted, verified with MARTINA Rick that patient would be willing to go if accepted. Updated Gertrudis who stated they would review and call us back with their decision. Awaiting update at this time, patient and CLINICAL LABORATORY ASSISTANT Prabhjot aware. Addendum entered by Julius Wong RN 06/16/24 17:44: 1715- Received call from MARTINA Zuleta at [facility], they have declined transfer at this time due to capacity. Addendum entered by Julius Wong RN 06/16/24 16:24: Call to [facility] Transfer center per Dr. Tuttle's request to update [facility] transfer team with information he obtained from patient's . Updated [facility] TC MARTINA Corbin with information regarding patient's surgical history, patient has not had any previous back surgeries, the patient did have cancer at 29 which was treated with chemo and radiation to his back. Emerald mentioned their Neurosurgery team had also requested an MRI with and without contrast which Dr. Tuttle has already ordered. Addendum entered by Julius Wong RN 06/16/24 15:55: 1550-Received call from [facility] MARTINA Lassiter who informed me that the on-call Neurosurgeon Dr. Duvall declined to consult on this case as they do not plan to accept patient at this time and he will not be involved in the patient's care. Addendum entered by Julius Wong RN 06/16/24 15:16: Images pushed to [facility]. Spoke with JUSTINE Lassiter RN who infomed us that they have declined based on capacity. They did offer consult service, their Neurosurgery MD will do some more review of patient case and call Dr. Tuttle with his recommendations. Informed Dr. Tuttle and he is aware that patient was declined by Neurosurgeon would call him with recommendations. Addendum entered by Julius Wong RN 06/16/24 14:53: Images pushed to [facility] via synapse. Addendum entered by Julius Wogn RN 06/16/24 14:50: 1430-Spoke with transfer center RN's at [facility]- Nila, [facility]- Rachel, and [facility]- Maikol, and provided clinicals on patient and initiated transfer request. They are all reviewing with their Neurosurgery departments at this time, awaiting response from them at this time. [facility] and [facility] have requested images be pushed to them. Addendum entered by Julius Wong RN 06/16/24 13:40: 1330- Received call from Dr. Weir who states he has reviewed case with Dr. Sevilla who has declined acceptance of patient as he is not able to care for this patient and perform needed interventions, he has requested that we continue to seek transfer for HLOC. Will expand search to [facility], [facility], and [facility]. Addendum entered by Julius Wong RN 06/16/24 12:21: Dr. Weir informed of declination by [facility] and [facility], he will consult hospitalist group and inform them of declinations for transfer and recommendations by Neurosurgeon to treat with antibiotics. He will update us if they are able to admit with consult to infectious disease specialist. Addendum entered by Julius Wong RN 06/16/24 11:03: Received call from MARTINA Reddy at [facility], informed us patient was declined by Dr. Carcamo, neurosurgery as patient may require anterior approach which they are unable to do. Addendum entered by Julius Wong RN 06/16/24 10:13: [facility] declined based on capacity. Addendum entered by Julius Wong RN 06/16/24 10:03: Call to [facility] to initiate transfer request, spoke with MARTINA Zuleta and provided clinical information. Addendum entered by Julius Wong RN 06/16/24 09:54: Called [facility] and spoke to MARTINA Reddy in the transfer center to initiate transfer request. Provided Clinical information. Addendum entered by Julius Wong RN 06/16/24 09:28: Transfer packet sent to [facility], [facility], and [facility]. Addendum entered by Julius Wogn RN 06/16/24 09:02: Spoke with MARTINA Roberto at [facility] who informed us that patient was declined due to not having reversal agent available per Dr. Monsalve, Neurosurgery. Addendum entered by Julius Wong RN 06/16/24 08:26: Spoke with [facility], Juan Antonio, who verified we do not have the reversal agent for Eliquis available. Original Note: Phone call to [facility], spoke with MARTINA Reddy who informed me that they are trying to obtain reversal agent for Eliquis prior to accepting patient as they would not be able to perform surgery for 72 hours, they will call us back with an update once they have one. Informed her that I would communicate with our pharmacist as well this morning and verify if we are able to administer reversal agent prior to transfer, and would then inform them if we were able to locate it, she was appreciative of this.
[2024-06-16 09:40] LABS: Basophils % (Auto) 0 % (0-2.5); Eosinophils # (Auto) 0.1 Thou/mm3 (0.0-0.5); Eosinophils % (Auto) 1 % (0-10); Hematocrit 27.6 % (41.0-53.0); Immature Granulocytes % (Auto) 1 % (0-0); Immature Granulocytes Auto 0.09 Thou/mm3 (0.00-0.00); Lymphocytes # (Auto) 0.6 Thou/mm3 (1.0-4.8); Lymphocytes % (Auto) 9 % (10-50); Mean Corpuscular HGB Conc 31.9 g/dl (31.0-37.0); Mean Corpuscular Hemoglobin 27.7 pg (25.0-35.0); Mean Corpuscular Volume 87 fL (80-100); Monocytes # (Auto) 0.6 Thou/mm3 (0.0-0.8); Monocytes % (Auto) 8 % (0-12); Neutrophils # (Auto) 5.9 Thou/mm3 (1.8-7.7); Neutrophils % (Auto) 81 % (37-80); Nucleated Red Blood Cell % 0 /100 WBC (0); Platelet Count 395 Thou/mm3 (140-440); Red Blood Count 3.18 Miln/mm3 (4.50-5.90); White Blood Count 7.3 Thou/mm3 (3.8-10.6)
[2024-06-16 09:43] LABS: Hemoglobin 8.8 g/dL (13.5-16.0)
[2024-06-16 09:59] LABS: Alanine Aminotransferase 19 U/L (10-49); Albumin, Serum 3.6 gm/dL (3.4-4.8); Albumin/Globulin Ratio 0.9 (1.2-2.2); Alkaline Phosphatase 143 U/L (46-116); Anion Gap 12 (7-16); Aspartate Amino Transferase 21 U/L (0-34); BUN/Creatinine Ratio 21 Ratio (12-20); Bilirubin,Total 0.3 mg/dL (0.3-1.2); Blood Urea Nitrogen 41 mg/dL (9-23); Calcium 9.4 mg/dL (8.3-10.6); Calcium (Corrected) 9.7 mg/dL (8.5-10.1); Carbon Dioxide 19.3 mMol/L (20.0-31.0); Chloride 108 mMol/L (98-107); Globulin 3.8 gm/dL (2.3-3.5); Glucose 89 mg/dL (74-106); Osmolality,Calculated 286 (275-295); Potassium 4.4 mMol/L (3.4-5.1); Sodium 139 mMol/L (136-145); Total Protein 7.4 gm/dL (5.7-8.2); eGFR 37 See Note
[2024-06-16] MEDS: CEFEPIME INJ 2 GM in SODIUM CHLORIDE 0.9% (Popper) 50 ML IV ×2 (14:06→21:45)
--- NOTE | 2024-06-16 14:13 | PD.IDPROG ---
Subjective Subjective Interval history: pt with gpc on stain from aspirate 06/15. on cefepime/flagyl/ vanco none the less. has abnormal spinal imaging Exam Vital Signs Temp Pulse Resp BP Pulse Ox O2 Del Method 98.5 F 75 21 H 142/74 H 95 Room Air 06/16/24 13:59 06/16/24 13:59 06/16/24 13:59 06/16/24 10:41 06/16/24 13:59 06/16/24 13:59 Narrative Exam see other notes. Objective - Internal Medicine Labs 06/16/24 09:00 06/16/24 09:31 Labs: Laboratory Results - last 24 hr 06/15/24 06/15/24 06/15/24 18:15 19:48 21:49 WBC 9.5 RBC 3.01 L Hgb 8.2 L Hct 25.7 L MCV 85 MCH 27.2 MCHC 31.9 RDW Std Deviation 51.9 H Plt Count 456 H D Neut % (Auto) 86 H Lymph % (Auto) 6 L Perkins % (Auto) 6 Eos % (Auto) 0 Baso % (Auto) 0 Neut # (Auto) 8.2 H Lymph # (Auto) 0.5 L Perkins # (Auto) 0.6 Eos # (Auto) 0.0 Baso # (Auto) 0.0 Immature Gran # (Auto) 0.14 H Absolute Nucleated RBC 0.00 Immature Gran % 2 H Nucleated RBC % 0 ESR 54 H PT 15.6 H INR 1.5 H APTT 38.4 H D Sodium 136 Potassium 4.5 Chloride 105 Carbon Dioxide 18.6 L Anion Gap 12 BUN 45 H Creatinine 2.3 H Estim Creat Clear Calc 28.7 L eGFR 31 L BUN/Creatinine Ratio 20 Glucose 99 Calculated Osmolality 283 Lactic Acid 3.1 H 0.9 Calcium 9.1 Corrected Calcium 9.3 Phosphorus 3.3 Magnesium 1.7 Total Bilirubin 0.4 AST 23 ALT 20 Alkaline Phosphatase 151 H Lactate Dehydrogenase 152 Troponin I < 0.020 C-Reactive Prot, Quant B-Natriuretic Peptide 173 H Total Protein 7.4 Albumin 3.7 Globulin 3.7 H Albumin/Globulin Ratio 1.0 L Lipase 26 Procalcitonin 0.18 Ur Collection Type Clean Catch Urine Color Lt-Yellow Urine Clarity Clear Urine pH 6.0 Ur Specific Sandy 1.013 Urine Protein Negative Urine Glucose (UA) Negative Urine Ketones Negative Urine Blood Negative Urine Nitrite Negative Urine Bilirubin Negative Urine Urobilinogen (Auto) Negative Ur Leukocyte Esterase Positive Urine RBC 2 Urine WBC 7 H Ur Squamous Epith Cells 5 Urine Bacteria None 06/15/24 06/16/24 06/16/24 23:35 09:00 09:31 WBC 7.3 RBC 3.18 L Hgb 8.8 L Hct 27.6 L MCV 87 MCH 27.7 MCHC 31.9 RDW Std Deviation 53.0 H Plt Count 395 D Neut % (Auto) 81 H Lymph % (Auto) 9 L Perkins % (Auto) 8 Eos % (Auto) 1 Baso % (Auto) 0 Neut # (Auto) 5.9 Lymph # (Auto) 0.6 L Perkins # (Auto) 0.6 Eos # (Auto) 0.1 Baso # (Auto) 0.0 Immature Gran # (Auto) 0.09 H Absolute Nucleated RBC 0.00 Immature Gran % 1 H Nucleated RBC % 0 ESR PT INR APTT Sodium 139 Potassium 4.4 Chloride 108 H Carbon Dioxide 19.3 L Anion Gap 12 BUN 41 H Creatinine 2.0 H Estim Creat Clear Calc 33.0 L eGFR 37 L BUN/Creatinine Ratio 21 H Glucose 89 Calculated Osmolality 286 Lactic Acid Calcium 9.4 Corrected Calcium 9.7 Phosphorus Magnesium Total Bilirubin 0.3 AST 21 ALT 19 Alkaline Phosphatase 143 H Lactate Dehydrogenase Troponin I C-Reactive Prot, Quant 13.3 H B-Natriuretic Peptide Total Protein 7.4 Albumin 3.6 Globulin 3.8 H Albumin/Globulin Ratio 0.9 L Lipase Procalcitonin Ur Collection Type Urine Color Urine Clarity Urine pH Ur Specific Sandy Urine Protein Urine Glucose (UA) Urine Ketones Urine Blood Urine Nitrite Urine Bilirubin Urine Urobilinogen (Auto) Ur Leukocyte Esterase Urine RBC Urine WBC Ur Squamous Epith Cells Urine Bacteria Assessment & Plan A&P Narrative hx of spinal infection per radiology. ideally one gets a bx before abx are given I can see formally if /when pt added to list. Time Spent With Patient Time: Total time spent is greater than 50% in coordination of care (as documented) at patient's floor/unit and/or counseling patient:
[2024-06-16] MEDS: VANCOMYCIN/NS 1 GM IVPB 200 ML IV (15:05)
--- NOTE | 2024-06-16 18:11 | EDNOTE_ITS ---
Emergency Room Addendum Addendum Narrative: 1800: Care assumed from Dr. Tuttle, the previous shift emergency physician. Past medical, surgical, social and family history reviewed. Vitals and home medications reviewed. Results and treatment plan discussed. I will assume the care of the patient at this time and will follow the patient, pending transfer. Please refer to the emergency department record for history and examination from initial visit. The patient was placed in ED observation care at 06/16/24 at 1800 hours. The patient was placed in ED observation care because of pending transfer. The patients past medical history, social history, and family history were reviewed. Patient is bedbound, but he can move his BLE and has normal sensations. His physical exam is unchanged from yesterday. He is comfortable and is not complaining of any severe back pain. 183: [facility] declined the patient for transfer due to being at capacity. MRI has already left for the day. Patient's MRI will not be completed until tomorrow. Of note, tomorrow morning will nesha 48 hours since the patient took hi s last dose of Eliquis. 2114: Spoke with [facility]'s transfer center ([facility]). Spoke with Dr. Larson, ED physician, accepts the patient for transfer. 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
--- NOTE | 2024-06-16 18:37 | PC.NURSE ---
[facility] ESPINAL
--- NOTE | 2024-06-16 19:47 | PC.NURSE ---
[facility] IS WA[facility].
[2024-06-16] MEDS: metroNIDAZOLE/NS 500 MG IVPB 500 MG/100 ML BAG 100 MG IV (21:48)
--- NOTE | 2024-06-17 01:10 | PC.NURSE ---
Report called to [place] [facility]. Pt left by ambulance at 2355. Pt awale a;ert GCS 15, VS stable.
== END 2024-06-17 00:01 | disposition short-term general hospital (02) ==
PROVIDERS: Nurse Practitioner Family; Emergency Provider Emergency Medicine; PCP Family Medicine
DX: L02.212 Cutaneous abscess of back [any part, except buttock and flank] (principal); M46.25 Osteomyelitis of vertebra, thoracolumbar region; I48.91 Unspecified atrial fibrillation; I10 Essential (primary) hypertension; R53.81 Other malaise; Z74.01 Bed confinement status; Z75.1 Person awaiting admission to adequate facility elsewhere; Z79.01 Long term (current) use of anticoagulants
CPT/HCPCS: 36415; 71045; 72128; 72131; 80053; 81001; 82270; 83605; 83615; 83690; 83735; 83880; 84100; 84145; 84484; 85025; 85610; 85652; 85730; 86140; 87040; 87070; 87077; 87086; 87186; 87205; 93005; 96361; 96365; 96366; 96367; 96368; 99285; J0692; J0696; J3370; J3490; J7050; J7120; J1836

== ENCOUNTER → 2024-06-15 | Outpatient (CLI) | payer MEDICARE, MEDICAID, SELFPAY ==
[2024-06-15 16:59] LABS: Basophils % (Auto) 1 % (0-2.5); Eosinophils % (Auto) 1 % (0-10); Hematocrit 28.5 % (41.0-53.0); Hemoglobin 9.1 g/dL (13.5-16.0); Immature Granulocytes % (Auto) 1 % (0-0); Lymphocytes # (Auto) 1.3 Thou/mm3 (1.0-4.8); Lymphocytes % (Auto) 15 % (10-50); Mean Corpuscular HGB Conc 31.9 g/dl (31.0-37.0); Mean Corpuscular Hemoglobin 27.5 pg (25.0-35.0); Mean Corpuscular Volume 86 fL (80-100); Monocytes # (Auto) 0.6 Thou/mm3 (0.0-0.8); Monocytes % (Auto) 7 % (0-12); Neutrophils # (Auto) 6.7 Thou/mm3 (1.8-7.7); Neutrophils % (Auto) 76 % (37-80); Nucleated Red Blood Cell % 0 /100 WBC (0); Platelet Count 534 Thou/mm3 (140-440); RDW Standard Deviation 53.1 fL (35.1-43.9); Red Blood Count 3.31 Miln/mm3 (4.50-5.90); White Blood Count 8.8 Thou/mm3 (3.8-10.6)
== END | disposition home or self-care (01) ==
LOC: COPL 15:06
PROVIDERS: PCP Family Medicine; Referring Provider Family Medicine; Visit Provider Family Medicine
DX: L02.91 Cutaneous abscess, unspecified (principal); Z13.0 Encounter for screening for diseases of the blood and blood-forming organs and certain disorders involving the immune mechanism
CPT/HCPCS: 36415; 85025; 85652

== ENCOUNTER 2024-07-16 02:23 | Emergency (ER) | payer MEDICARE, MEDICAID, SELFPAY ==
[2024-07-16 02:28] VITALS: PULSE 77; RESP 16; O2SAT 97; BMI 33.0
[2024-07-16 02:34] VITALS: BP 134/78; PULSE 75; RESP 18; TEMP 37.1; O2SAT 98
--- NOTE | 2024-07-16 02:47 | PC.LAC ---
pt sent from SNF due to picc line partial removed, I removed remainder of picc and inserted peripheral IV. Jerry from the facility was contacted to let him know patient will be returning to snf and if pt still needs picc he can return wednesday
--- NOTE | 2024-07-16 02:53 | PD.EDSKIN ---
ED Skin Abcess FB-RME/HPI General Chief complaint: General Adult/Misc Complain Stated complaint: PICC LINE REINSERTION Time Seen by Provider: 07/16/24 02:56 Arrival date/time: 07/16/24 02:23 RME / HPI RME / HPI narrative: This section includes all my notes and documentations, including HPI, PE, and ED course. Dimitri Dennis MD HPI: 64 y/o male with Hx o CVA presents to ED BIBA from snf c/o PICC line displacement x couple of hours. No other complaints. ROS: All negative except as documented in HPI. Physical Exam: General: Alert and oriented. Eyes: Conjunctivae and lids clear. ENT: No nasal congestion. Neck: Supple. Lungs: No respiratory distress. Skin: Warm and dry. Neuro: Alert and oriented X 3. I reviewed EMS and snf notes. At this point, diagnoses include displacement of peripherally inserted central line. Treatment here included IV placement. Based on my best medical judgment, made decision no further evaluation or treatment indicated at this time. Patient understands and agrees to the discharge instructions customized and printed, see below. Discharge Instructions from Dr. Dennis: 1. Fortunately, we were successful with IV access in your right arm. 2. The snf can use this for your IV medications. 3. Tomorrow on Wednesday, ask for help with another PICC line placement. 4. Seek immediate medical care with any concerns. Dimitri Dennis MD Related Data Home Medications ?Medication ?Instructions ?Recorded ?Confirmed spironolactone 25 mg tablet 50 mg PO QDAY 08/20/20 06/15/24 atorvastatin 80 mg tablet 80 mg PO QPM 10/20/23 06/15/24 clopidogrel 75 mg tablet 75 mg PO QDAY 10/20/23 06/15/24 escitalopram oxalate 10 mg tablet 10 mg PO QDAY 10/20/23 06/15/24 isosorbide mononitrate 30 mg 30 mg PO QDAY 10/20/23 06/15/24 tablet,extended release 24 hr metoprolol tartrate 25 mg tablet 25 mg PO BID 10/20/23 06/15/24 apixaban 2.5 mg tablet (Eliquis) 2.5 mg PO BID 06/15/24 06/15/24 clindamycin HCl 300 mg capsule 300 mg PO TID 06/15/24 06/15/24 famotidine 20 mg tablet 20 mg PO .bed 06/15/24 06/15/24 ferrous sulfate 325 mg (65 mg 325 mg PO BID 06/15/24 06/15/24 iron) tablet (Feosol) Previous Rx's ?Medication ?Instructions ?Recorded diltiazem HCl 60 mg 60 mg PO TID #85 caps 09/22/21 capsule,extended release 12 hr losartan 50 mg tablet 50 mg PO QDAY #30 tabs 09/22/21 pantoprazole 40 mg tablet,delayed 40 mg PO BID #60 tabs 05/13/24 release Allergies Allergy/AdvReac Type Severity Reaction Status Date / Time bee pollen Allergy Severe Anaphylaxis Verified 10/20/23 11:23 Sulfa (Sulfonamide Allergy Intermediate Swelling Verified 10/20/23 11:23 Antibiotics) of Lip/Tongue/Throat ampicillin Allergy Unknown Hives Verified 10/20/23 11:23 hydrocodone AdvReac Unknown Nausea Verified 10/20/23 11:23 COLLAGEN Allergy Intermediate Rash Uncoded 10/20/23 11:23 Review of Systems Review of Systems Systems Reviewed: All systems reviewed, normal except as documented Past Medical History Past Medical History NEUROLOGIC: Positive Cerebrovascular Accident (bed bound since stroke) CARDIAC: Positive Cardiac Disorders, Myocardial Infarction, Coronary Artery Disease, Hypercholesterolemia and Hypertension GASTROINTESTINAL: Positive Gastrointestinal Disorders, Gall Bladder Disease, Gastrointestinal Bleed, Ulcer, Gastroesophageal Reflux Disease and Obesity MUSCULOSKELETAL: Positive Musculoskeletal Disorders, Bone Cancer and Scoliosis ENT: Positive Deafness HEMATOLOGIC: Positive Blood Disorders and Anemia PSYCHO/SOCIAL: Positive Depression OTHER HISTORY: Positive Hospitalization, Falls, Blood Transfusions, Chemotherapy, Radiation Therapy and Cancer Family History FAMILY HISTORY: Positive Family Cardiac Disorders and Family Surgery Surgical History SURGICAL: Positive Cardiac Surgery, Coronary Stent, Angiogram, Endocrine Surgery, Tonsillectomy, Abdominal Surgery and Amputation (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 Dennis. Provider Notation: Although this document has been carefully reviewed, there may still be some phonetic and other typographical errors.? These errors are purely grammatical due to imperfections in the software program and should not be construed in any way to? compromise the substance of the patient's medical care during this visit. 64 y/o male with Hx o CVA presents to ED BIBA from snf c/o PICC line displacement x couple of hours. Patient data External records reviewed:: [facility] previous records (Prior ED records reviewed from 06/16/24. 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) Social determinants that could affect healthcare access:: housing (SNF) Patient has the following chronic illnesses:: Cerebrovascular Accident, Myocardial Infarction, Coronary Artery Disease, Hypercholesterolemia, Hypertension, Gall Bladder Disease, Gastrointestinal Bleed, Ulcer, Gastroesophageal Reflux Disease, Obesity, Bone Cancer, Scoliosis, Deafness, Anemia, Depression, Blood Transfusions, Chemotherapy, Radiation Therapy and Cancer How is presenting disease/condition affected by chronic disease/condition?: uneffected by Evaluation data The following diagnostics were reviewed and interpreted by me:: other (specify) (None necessary) Lab and/or radiology exams considered but not ordered:: None Interpretation Summary: N/A Medications / Prescriptions Medications or Prescriptions considered but not ordered:: None Medication administrations:: N/A Consultations Consultation(s) initiated? (list below): No Diagnosis Skin/Abscess Differential Diagnosis: other (Displacement of PICC line) Most likely diagnosis given after review of the tests above:: Displacement of peripherally inserted central line. Admission Indicated Admission indicated?: not indicated Explain why admission is indicated or not indicated:: With improvement, there was no indication for admission. Admission Request Was there a request for admission?: No Disposition Plan Disposition Plan: Discharge Discharge Attestation Discharge Attestation: The patient and all family members were given an opportunity to ask questions and understood the discharge instructions. Discharge instructions specifically effects, indications for sooner follow up or return to the emergency department, and the expected course of current diagnosis. Patient condition: Stable Discharge Plan Plan Patient Disposition: Xfer Skilled Nsg Fac (SNF) Prescriptions/Referrals Prescriptions/Med Rec: No Action spironolactone 25 mg tablet 50 mg PO QDAY Rx Instructions: 50 mg 1 tab orally daily; diltiazem HCl 60 mg capsule,extended release 12 hr 60 mg PO TID Qty: 85 3RF losartan 50 mg tablet 50 mg PO QDAY Qty: 30 3RF pantoprazole 40 mg tablet,delayed release (DR/EC) 40 mg PO BID Qty: 60 0RF atorvastatin 80 mg Tablet 80 mg PO QPM isosorbide mononitrate 30 mg Tablet Extended Release 24 Hr 30 mg PO QDAY clopidogrel 75 mg Tablet 75 mg PO QDAY escitalopram oxalate 10 mg Tablet 10 mg PO QDAY metoprolol tartrate 25 mg Tablet 25 mg PO BID clindamycin HCl 300 mg capsule 300 mg PO TID famotidine 20 mg tablet 20 mg PO .bed Patient Comments: TAKE 1 TABLET BY MOUTH EVERY DAY AT BEDTIME NEEDED FOR 30 DAYS ferrous sulfate [Feosol] 1 TAB tablet 325 mg PO BID Eliquis 2.5 mg tablet 2.5 mg PO BID Problem List Clinical Impression: Displacement of peripherally inserted central catheter (PICC) Patient/Caregiver Discharge Instructions Discharge Activity: activity as tolerated Education Materials: ED PICC Line Care Additional Instructions: Discharge Instructions from Dr. Dennis: 1. Fortunately, we were successful with IV access in your right arm. 2. The snf can use this for your IV medications. 3. Tomorrow on Wednesday, ask for help with another PICC line placement. 4. Seek immediate medical care with any concerns. Print Language: Vincentian Stand Alone Forms: Caterina Award Info., Patient Portal Info Letter
== END 2024-07-16 03:36 | disposition skilled nursing facility (03) ==
LOC: SERX 03:25
PROVIDERS: Emergency Provider Emergency Medicine; PCP Family Medicine
DX: T82.524A Displacement of infusion catheter, initial encounter (principal); Z86.73 Personal history of transient ischemic attack (TIA), and cerebral infarction without residual deficits
CPT/HCPCS: 99283

== ENCOUNTER 2024-07-18 07:36 | Outpatient (CLI) | payer MEDICARE, MEDICAID, SELFPAY ==
[2024-07-18] VITALS (8 sets, daily range): BP systolic 139–174; BP diastolic 67–105; PULSE 62–85; RESP 16–18; TEMP 36–36.5; O2SAT 100
--- NOTE | 2024-07-18 08:30 | XR_ITS ---
Examination: Ultrasound-guided needle placement right brachial vein. Dual-lumen central line placement (PICC line). Fluoroscopy AP chest, portable, single view Exam date and time:July 18, 2024 1027 hours INDICATIONS: Need for long-term intravenous antibiotic therapy for osteomyelitis A timeout was completed verifying correct patient, procedure, site, positioning Informed consent provided Technique: The patient's site was prepped and draped in sterile fashion. Maximum Sterile Barrier Technique used including cap, mask, sterile gown, sterile gloves, and sterile full body drape. If ultrasound technique used: sterile gel and sterile probe covers. Hand Hygiene performed using proper scrub, soap and water, or alcohol-based hand rub. Ultrasound utilized to confirm patency of the right brachial vein Utilizing ultrasonographic guidance successful 21-gauge needle puncture right brachial vein Ultrasound images recorded and stored. 5 cc 1% lidocaine administered for local anesthetic. Successful micropuncture with a 21-gauge needle is performed. 0.18 wire guide is then introduced into the SVC under fluoroscopic guidance. Dual-lumen catheter dilator is then introduced, followed by the catheter in the SVC and proper position under fluoroscopic guidance. Successful aspiration of blood and flushing with heparinized saline is then performed in the 2 venous limbs. The catheter sutured in place. Findings: Under fluoroscopy, the tip of the catheter is in good position in the vena cava. Portable chest x-ray, post line placement is ordered. Estimated blood loss 3 cc The patient tolerated the procedure well and was in stable and satisfactory condition at completion of the procedure Impression: Successful ultrasound-guided needle placement right brachial vein Successful placement of dual lumen central line, percutaneous Fluoroscopy 1.6 minutes radiation dose 11.46 milligray 1 spot fluoroscopic chest. AP chest completion procedure demonstrates satisfactory position central line. May use central line.
[2024-07-18 08:33] LABS: Basophils % (Auto) 0 % (0-2.5); Eosinophils # (Auto) 0.3 Thou/mm3 (0.0-0.5); Eosinophils % (Auto) 5 % (0-10); Hematocrit 30.6 % (41.0-53.0); Hemoglobin 9.9 g/dL (13.5-16.0); Immature Granulocytes % (Auto) 2 % (0-0); Immature Granulocytes Auto 0.08 Thou/mm3 (0.00-0.00); Lymphocytes # (Auto) 1.3 Thou/mm3 (1.0-4.8); Lymphocytes % (Auto) 24 % (10-50); Mean Corpuscular HGB Conc 32.4 g/dl (31.0-37.0); Mean Corpuscular Volume 86 fL (80-100); Monocytes # (Auto) 0.4 Thou/mm3 (0.0-0.8); Monocytes % (Auto) 7 % (0-12); Neutrophils # (Auto) 3.3 Thou/mm3 (1.8-7.7); Neutrophils % (Auto) 63 % (37-80); Nucleated Red Blood Cell % 0 /100 WBC (0); Platelet Count 378 Thou/mm3 (140-440); Red Blood Count 3.54 Miln/mm3 (4.50-5.90); White Blood Count 5.3 Thou/mm3 (3.8-10.6)
[2024-07-18 09:48] LABS: INR 1.2 (0.9-1.3); Partial Thromboplastin Time 34.2 Seconds (22.0-36.0); Prothrombin Time 12.8 Seconds (9.0-12.2)
[2024-07-18] MEDS: LIDOCAINE INJ PF 1% 30 ML VIAL INFL (11:00)
[2024-07-18] MEDS: HEPARIN SOD LOCK SYR 100 UNIT/ML 500 UNIT STFIELD (11:00)
== END 2024-07-18 12:50 ==
PROVIDERS: Radiology Diagnostic Radiology; PCP Hospitalist; Referring Provider Hospitalist; Visit Provider Hospitalist
DX: M46.26 Osteomyelitis of vertebra, lumbar region (principal); I50.9 Heart failure, unspecified
CPT/HCPCS: 36573; 36415; 85025; 85610; 85730; C1894; J1642; J3490; J7050

== ENCOUNTER 2024-10-16 17:22 | Inpatient (IN) | payer MEDICARE, MEDICAID, SELFPAY ==
[2024-10-16] VITALS (10 sets, daily range): BP systolic 117–172; BP diastolic 63–80; PULSE 55–102; RESP 14–22; TEMP 36.1–39.5; O2SAT 96–100; BMI 31.0
--- NOTE | 2024-10-16 17:36 | EKG_ITS ---
[facility] Test Date: 2024-10-16 Pat Name: NARINDER JACOBO Department: Room: - Gender: Male Land Classifier: : [id number] Requested By: Salo De La Cruz Order Number: [id number] Reading MD: Salo De La Cruz Measurements Intervals [place] Rate: 103 P: OK: QRS: -4 QRSD: 108 T: 29 QT: 364 QTc: 479 Interpretive Statements ATRIAL FIBRILLATION WITH RAPID VENTRICULAR RESPONSE MODERATE ST DEPRESSION [0.05+ mV ST DEPRESSION] Compared to ECG 06/15/2024 17:22:05 ST (T wave) deviation now present T-wave abnormality no longer present /store/S0/[id number].pdf
[2024-10-16] MEDS: ACETAMINOPHEN IVPB 1,000 MG/100 ML VIAL 250 MG IV (18:03)
[2024-10-16] MEDS: RINGERS LACTATED 1000 ML 1,000 ML 999 ML IV ×2 (18:04→20:24)
[2024-10-16] MEDS: ONDANSETRON INJ 2 MG/ML INJ 2 ML 4 MG IVP (18:04)
[2024-10-16 18:12] LABS: Lactate (Lactic Acid) 1.4 mMol/L (0.4-2.0)
--- NOTE | 2024-10-16 18:25 | PC.NURSE ---
pt biba for weakness, fever, and not feeling good. pt presents to ED with high fever, n/v. pt has extensive medical history. noted a large unstagable wound on the mid back with exudate in it. placed iv, placed on quality assurance monitor, meds given, and swabs taken. will cont to monitor
[2024-10-16 18:29] LABS: Collection Type, Urine Clean Catch
[2024-10-16 18:37] LABS: Bacteria,Urine 4+; Bilirubin,Urine Negative (Negative); Blood,Urine 3+ (Negative); Clarity,Urine Turbid (Clear/Hazy); Color,Urine Yellow (Lt Yel-Yel); Glucose, Urine Negative (Negative); Ketones,Urine Negative (Negative); Leukocyte Esterase,Urine Positive (Negative); Nitrite,Urine Negative (Negative); PH,Urine 5.5 (5.0-7.0); Protein,Urine 1+ (Neg - Trace); RBC,Urine 14 /hpf (0-3); Specific Gravity,Urine 1.014 (1.001-1.035); Squamous Epithelial Cell,Urine 6 /hpf (0-5); Urobilinogen,Urine Negative mg/dL (0.0-1.0); WBC,Urine 32 /hpf (0-5)
--- NOTE | 2024-10-16 18:40 | PD.EDADULT ---
ED General RME/HPI General Chief complaint: Weakness Stated complaint: WEAKNESS Time Seen by Provider: 10/16/24 17:35 Arrival date/time: 10/16/24 17:22 CC: Generalized weakness nausea vomiting HPI patient presents to the ER via EMS who states he is warm to touch, after patient was returned home from rehab facility. Patient was in a rehab facility for 90 days prior to that he was at [facility] in [place] for infection in his mid back that required surgery and IV antibiotics. At the time of the exam the patient is actively vomiting but is awake alert and oriented x 3. Related Data Home Medications ?Medication ?Instructions ?Recorded ?Confirmed atorvastatin 80 mg tablet 80 mg PO QPM 10/20/23 07/18/24 clopidogrel 75 mg tablet 75 mg PO QDAY 10/20/23 07/18/24 isosorbide mononitrate 30 mg 30 mg PO QDAY 10/20/23 07/18/24 tablet,extended release 24 hr metoprolol tartrate 25 mg tablet 25 mg PO BID 10/20/23 07/18/24 apixaban 2.5 mg tablet (Eliquis) 2.5 mg PO BID 06/15/24 07/18/24 famotidine 20 mg tablet 20 mg PO .bed 06/15/24 07/18/24 ferrous sulfate 325 mg (65 mg 325 mg PO BID 06/15/24 07/18/24 iron) tablet (Feosol) diltiazem HCl 60 mg 60 mg PO BID 07/18/24 07/18/24 capsule,extended release 12 hr hydrocodone 5 mg-acetaminophen 325 1 tab PO Q4H 07/18/24 07/18/24 mg tablet oxycodone 5 mg tablet 5 mg PO Q4H 07/18/24 07/18/24 Previous Rx's ?Medication ?Instructions ?Recorded pantoprazole 40 mg tablet,delayed 40 mg PO BID #60 tabs 05/13/24 release Allergies Allergy/AdvReac Type Severity Reaction Status Date / Time bee pollen Allergy Severe Anaphylaxis Verified 07/18/24 10:06 Sulfa (Sulfonamide Allergy Intermediate Swelling Verified 07/18/24 10:06 Antibiotics) of Lip/Tongue/Throat ampicillin Allergy Unknown Hives Verified 07/18/24 10:06 hydrocodone AdvReac Unknown Nausea Verified 07/18/24 10:06 COLLAGEN Allergy Intermediate Rash Uncoded 07/18/24 10:06 Review of Systems Review of Systems Narrative Review of Systems: GEN: No fever, no chills, no weight loss EYES: No discharge, no visual changes, no pain HEENT: No ear pain, no congestion, no sore throat PULM: No shortness of breath, no cough, no congestion CV: No chest pain, no dyspnea on exertion, no palpitations GI: No nausea, no vomiting, no diarrhea, no pain, no constipation : No frequency, no urgency, no dysuria MUSC/SKEL: No joint pain, no back pain SKIN: No rash PSYCH: No hallucinations, no depression HEME/LYMPH: No easy bleeding or bruising tendencies NEURO: + weakness, no headache Past Medical History Past Medical History NEUROLOGIC: Positive Cerebrovascular Accident (bed bound since stroke); Negative Neurological Disorders, Seizures or Epilepsy CARDIAC: Positive Cardiac Disorders, Myocardial Infarction, Coronary Artery Disease, Hypercholesterolemia and Hypertension; Negative Congestive Heart Failure RESPIRATORY: Negative Chronic Obstructive Pulmonary Disease (COPD) GASTROINTESTINAL: Positive Gastrointestinal Disorders, Gall Bladder Disease, Gastrointestinal Bleed, Ulcer, Gastroesophageal Reflux Disease and Obesity GENITOURINARY: Negative Genitourinary Disorders or Renal Disease REPRODUCTIVE: Negative Fibroids MUSCULOSKELETAL: Positive Musculoskeletal Disorders, Bone Cancer and Scoliosis ENT: Positive Deafness ENDOCRINE: Negative Endocrine Disorders, Diabetes Mellitus Type 1 or Diabetes Mellitus Type 2 HEMATOLOGIC: Positive Blood Disorders and Anemia PSYCHO/SOCIAL: Positive Depression OTHER HISTORY: Positive Hospitalization, Falls, Blood Transfusions, Chemotherapy, Radiation Therapy and Cancer; Negative Shingles, Blood Transfusion Reaction, Anesthesia Reactions, MRSA, Chicken Pox, Measles or Mumps Family History FAMILY HISTORY: Positive Family Cardiac Disorders and Family Surgery; Negative Family Psychiatric Problems, Family Respiratory Disorders, Family Gastrointestinal Problems, Family Cancer or Family Anesthesia Reaction Surgical History SURGICAL: Positive Cardiac Surgery, Coronary Stent, Angiogram, Endocrine Surgery, Tonsillectomy, Abdominal Surgery and Amputation (3rd middle finger) Social History SMOKING STATUS: Unknown if ever smoked SECOND HAND EXPOSURE: No SUBSTANCE USE: does not use ED Exam Narrative Physical exam: [General: Obese in moderate discomfort but not in any acute distress Head normocephalic HEENT: Eyes pupils are PERRLA EOMs are intact mouth pink dry membranes uvula is midline swallow symmetrical actively retching. Nose no rhinorrhea, all other subsystems of HEENT are within acceptable limits Neck is supple nontender no JVD no edema Chest equal chest rise nontender to palpation Respiratory: Clear to auscultation no wheezes crackles or rubs CV: Rate rhythm is regular no murmurs rubs or clicks Abdomen is distended secondary to body habitus soft nontender no masses positive bowel sounds all 4 quadrants Back: No CVA tenderness no spinous process tenderness from cervical spine thoracic and lumbar spine Skin: Large 6 cm circular ulceration mid thoracic spine no surrounding erythema edema no streaking not warm to touch no exudate or bleeding. Otherwise skin is intact no petechiae rash induration ulceration or crepitus Extremities: Lower extremities flaccid secondary to paraplegia upper extremities gross motor control. Neuro: Awake alert oriented x3. Course Quality Measures none Orders Category Date Time Status Bedside COVID-19 Antigen Test NOW Care 10/16/24 17:38 Active Bedside COVID-19 Antigen Test NOW Care 10/16/24 18:40 Completed Berry Planter STAT Care 10/16/24 17:36 Active Continuous Pulse Oximetry STAT Care 10/16/24 17:36 Completed EKG (ED ONLY) *Do not use* NOW Care 10/16/24 17:36 Completed In and Out Catheter X1PRN Care 10/16/24 17:36 Completed Insert IV NOW Care 10/16/24 17:36 Active NPO STAT Care 10/16/24 17:36 Active Strict Intake and Output Routine Care 10/16/24 17:36 Ordered Transfuse,blood/blood products NOW Care 10/16/24 19:12 Active Consult to Gastroenterology Stat Cons 10/16/24 19:41 Ordered EKG (ED Only) Stat Exams 10/16/24 17:36 Draft B-Type Natriuretic Peptide Stat Lab 10/16/24 18:00 Completed Blood Culture (Lab) Stat Lab 10/16/24 18:00 Received CBC Stat Lab 10/16/24 18:55 Completed Comprehensive Metabolic Panel Stat Lab 10/16/24 18:00 Completed LDH (Lactate Dehydrogenase) Stat Lab 10/16/24 18:00 Completed Lactate (Lactic Acid) Stat Lab 10/16/24 18:00 Completed Lipase Stat Lab 10/16/24 18:00 Completed Magnesium Stat Lab 10/16/24 18:00 Completed Partial Thromboplastin Time Stat Lab 10/16/24 18:00 Completed Path Review Blood Smear Stat Lab 10/16/24 18:55 Completed Phosphorous Stat Lab 10/16/24 18:00 Completed Procalcitonin Stat Lab 10/16/24 18:00 Completed Prothrombin Time with INR Stat Lab 10/16/24 18:00 Completed Troponin I Stat Lab 10/16/24 18:00 Completed Type and Screen Stat Lab 10/16/24 19:28 Results Urinalysis Stat Lab 10/16/24 18:00 Completed Urine Culture Stat Lab 10/16/24 18:00 Received prbc [Red Blood Cells] Stat Lab 10/16/24 19:28 Results Acetaminophen Ivpb [Ofirmev Inj] Med 10/16/24 17:36 Discontinued 1,000 mg in 100 ml IV Q6HR CIPROFLOXACIN/D5w 400 MG IVPB [Cipro Ivpb] Med 10/16/24 18:46 Discontinued 400 mg in 200 ml IV X1 Magnesium Sulfate 4 GM Ivpb [Magnesium Sulfate Ivpb] Med 10/16/24 19:02 Active 4 gm in 50 ml IV X1 Ondansetron Inj [Zofran Inj] Med 10/16/24 17:36 Discontinued 4 mg IVP X1 ONE Pantoprazole Inj [Protonix Inj] Med 10/16/24 19:20 Discontinued 40 mg IVP X1 ONE Pantoprazole/Ns 80Mg IV Premix [Protonix/NS 80mg IV Med 10/16/24 19:20 Active Premix] 80 mg in 100 ml IV Q10H Ringers Lactated 1000 ml [Lactated Ringers] 1,000 ml Med 10/16/24 17:37 Discontinued IV 999 mls/hr Ringers Lactated 1000 ml [Lactated Ringers] 1,000 ml Med 10/16/24 19:03 Discontinued IV 999 mls/hr Oxygen Delivery NOW RT 10/16/24 17:36 Active Vital Signs Vital signs: Vital Signs Temperature 103.1 F H 10/16/24 17:31 Pulse Rate 102 H 10/16/24 17:31 Respiratory Rate 22 H 10/16/24 17:31 Blood Pressure 172/63 H 10/16/24 17:31 Pulse Oximetry (%) 98 10/16/24 17:31 Oxygen Delivery Method Room Air 10/16/24 17:31 Discharge Plan Plan Patient Disposition: Admit Acute Care w/in Hospital Problem List Clinical Impression: Fever, Weakness, Anemia, GI (gastrointestinal bleed), UTI (urinary tract infection) MDM Clinical Information Provided by patient, EMS and spouse Medical Records Reviewed [facility] and EMS Meds/Rx Considered, not Ordered None Labs/Rad/Tests considered, not Ordered None Chronic Illness/Social Conditions Add or document further as needed: Back infection versus abscess, resulting in paraplegia history of stroke, history of GI bleed Lab Interpretation Lab(s) interpretation(s): Urine is turbid, 1+ protein 3+ blood 14 RBCs WBCs of 32 squamous epithelial at 64+ bacteria Coags show a PT of 16.6 INR 1.6 APTT of 43.8 CMP shows sodium 134 BUN of 38 creatinine of 1.8 glucose of 132 magnesium of 1.2 Lactic of 1.4 No transaminitis or T. bili elevation. BNP of 105 Lipase of 28 Pro-Chavez of 0.31 Imaging Provider imaging interpretation(s): Patient is anemic with a GI bleed the back surgical site dehiscence appears to be slow healing but not infected. Urine is a probable source of his fever we will admit this patient for fever, anemia, transfusion, UTI patient started on ciprofloxacin for UTI secondary to his allergies. Patient's case discussed with resident for Dr. Bryant who agrees accept the patient for admission Dr. Claros consulted for GI bleed. Medication Administration(s) Medication Administration History Acetaminophen (Acetaminophen 325 Mg Tablet) 650 mg PO Q6H PRN PRN Reason: Fever >100.4 or pain Stop: 11/15/24 20:18 Atorvastatin Calcium (Atorvastatin Calcium 20 Mg Tablet) 80 mg PO QPM [facility] Stop: 11/15/24 20:59 Last Admin: 10/16/24 21:26 Dose: 80 mg Documented By: ROCIO Diltiazem HCl (Diltiazem 30 Mg Tablet) 30 mg PO QID [facility] Stop: 11/15/24 20:59 Last Admin: 10/16/24 21:26 Dose: 30 mg Documented By: ROCIO Magnesium Sulfate (Magnesium Sulfate Ivpb) 4 gm in 50 mls @ 12.5 mls/hr IV X1 ONE Stop: 10/16/24 23:01 Last Admin: 10/16/24 20:26 Dose: 12.5 mls/hr Documented By: MARIA T Pantoprazole Sodium (Protonix/Ns 80mg Iv Premix) 80 mg in 100 mls @ 10 mls/hr IV Q10H [facility] Stop: 10/19/24 17:19 Last Admin: 10/16/24 19:59 Dose: 10 mls/hr Documented By: KUMAR Ceftriaxone Sodium/Dextrose (Rocephin/D5w 1gm Iv Premix) 1 gm in 50 mls @ 100 mls/hr IV QDAY [facility] Stop: 10/24/24 08:59 Isosorbide Mononitrate (Isosorbide Er Mononitrate 30 Mg Tabcr) 30 mg PO QDAY [facility] Stop: 11/16/24 08:59 Metoprolol Tartrate (Metoprolol Tartrate 25 Mg Tablet) 25 mg PO BID [facility] Stop: 11/15/24 20:59 Last Admin: 10/16/24 21:25 Dose: 25 mg Documented By: ROCIO Discontinued Medications Acetaminophen (Ofirmev Inj) 1,000 mg in 100 mls @ 250 mls/hr IV Q6HR [facility] Stop: 10/17/24 12:23 Last Infusion: 10/16/24 18:59 Dose: Infused Documented By: Admin: 10/16/24 18:03 Dose: 250 mls/hr Documented By: KARLEE Lactated Ringer's (Lactated Ringers) 1,000 mls @ 999 mls/hr IV .Q1H1M ONE Stop: 10/16/24 18:37 Last Infusion: 10/16/24 19:05 Dose: Infused Documented By: MARIA T Admin: 10/16/24 18:04 Dose: 999 mls/hr Documented By: KARLEE Ciprofloxacin/Dextrose (Cipro Ivpb) 400 mg in 200 mls @ 200 mls/hr IV X1 ONE Stop: 10/16/24 19:45 Last Infusion: 10/16/24 20:45 Dose: Infused Documented By: MARIA T Admin: 10/16/24 19:45 Dose: 200 mls/hr Documented By: MARIA T Lactated Ringer's (Lactated Ringers) 1,000 mls @ 999 mls/hr IV .Q1H1M ONE Stop: 10/16/24 20:03 Last Infusion: 10/16/24 21:41 Dose: Infused Documented By: MARIA T Admin: 10/16/24 20:24 Dose: 999 mls/hr Documented By: MARIA T Ondansetron HCl (Ondansetron Inj 2 Mg/Ml Inj 2 Ml) 4 mg IVP X1 ONE; Protocol Stop: 10/16/24 17:37 Last Admin: 10/16/24 18:04 Dose: 4 mg Documented By: KARLEE Pantoprazole Sodium (Pantoprazole Inj 40 Mg Vial) 40 mg IVP X1 ONE Stop: 10/16/24 19:21 Last Admin: 10/16/24 20:03 Dose: 40 mg Documented By: KUMAR
[2024-10-16 18:47] LABS: INR 1.6 (0.9-1.3); Partial Thromboplastin Time 43.8 Seconds (22.0-36.0); Prothrombin Time 16.6 Seconds (9.0-12.2)
[2024-10-16 18:49] LABS: B-Type Natriuretic Peptide 105 pg/mL (0-100)
[2024-10-16 18:59] LABS: Alanine Aminotransferase 35 U/L (10-49); Albumin, Serum 3.4 gm/dL (3.4-4.8); Albumin/Globulin Ratio 1.3 (1.2-2.2); Alkaline Phosphatase 105 U/L (46-116); Anion Gap 11 (7-16); Aspartate Amino Transferase 39 U/L (0-34); BUN/Creatinine Ratio 21 Ratio (12-20); Bilirubin,Total 0.4 mg/dL (0.3-1.2); Blood Urea Nitrogen 38 mg/dL (9-23); Calcium 8.4 mg/dL (8.3-10.6); Calcium (Corrected) 8.9 mg/dL (8.5-10.1); Carbon Dioxide 20.9 mMol/L (20.0-31.0); Chloride 102 mMol/L (98-107); Creatinine (Component) 1.8 mg/dL (0.6-1.3); Estimated Creatinine Clearance 47.0 mL/min (>60); Globulin 2.6 gm/dL (2.3-3.5); Glucose 132 mg/dL (74-106); LDH (Lactate Dehydrogenase) 183 U/L (120-246); Lipase 28 U/L (12-53); Magnesium 1.2 mg/dL (1.6-2.6); Osmolality,Calculated 279 (275-295); Phosphorous 2.6 mg/dL (2.4-5.1); Potassium 3.6 mMol/L (3.4-5.1); Procalcitonin 0.31 ng/ml (0.0-0.49); Sodium 134 mMol/L (136-145); Total Protein 6.0 gm/dL (5.7-8.2); Troponin I 0.032 ng/mL (0.0-0.045); eGFR 42 See Note
[2024-10-16 19:03] LABS: Basophils # (Auto) 0.0 Thou/mm3 (0.0-0.2); Basophils % (Auto) 0 % (0-2.5); Eosinophils # (Auto) 0.0 Thou/mm3 (0.0-0.5); Eosinophils % (Auto) 0 % (0-10); Immature Granulocytes Auto 0.08 Thou/mm3 (0.00-0.00); Lymphocytes # (Auto) 0.2 Thou/mm3 (1.0-4.8); Lymphocytes % (Auto) 2 % (10-50); Mean Corpuscular HGB Conc 32.5 g/dl (31.0-37.0); Mean Corpuscular Hemoglobin 26.9 pg (25.0-35.0); Mean Corpuscular Volume 83 fL (80-100); Monocytes # (Auto) 0.3 Thou/mm3 (0.0-0.8); Monocytes % (Auto) 3 % (0-12); Neutrophils # (Auto) 8.9 Thou/mm3 (1.8-7.7); Neutrophils % (Auto) 93 % (37-80); Nucleated Red Blood Cell # 0.00 Thou/mm3 (0.00-0.00); Nucleated Red Blood Cell % 0 /100 WBC (0); Platelet Count 250 Thou/mm3 (140-440); RDW Standard Deviation 51.0 fL (35.1-43.9); Red Blood Count 2.34 Miln/mm3 (4.50-5.90); White Blood Count 9.5 Thou/mm3 (3.8-10.6)
[2024-10-16 19:09] LABS: Hematocrit 19.4 % (41.0-53.0); Hemoglobin 6.3 g/dL (13.5-16.0)
[2024-10-16] MEDS: CIPROFLOXACIN/D5w 400 MG IVPB 400 MG/200 ML BAG 200 MG IV (19:45)
[2024-10-16] MEDS: PANTOPRAZOLE/NS 80MG IV PREMIX 80 MG/100 ML BAG 10 MG IV (19:59)
[2024-10-16] MEDS: Magnesium Sulfate 4 GM Ivpb 4 GM/50 ML BAG IV (20:26)
--- NOTE | 2024-10-16 20:31 | ESHP_ITS ---
<Statement entered by Geoff Gallego MD - 10/17/24 18:52> I have discussed and was present for the essential components of the history, physical examination, diagnosis, and treatment plan with the resident. I agree with the patient's care as documented by the resident and amended herein by me. Geoff Gallego MD FACP. Documentation for date of: 10/16/24 HPI History of Present Illness Chief complaint: Fevers, chills History of present illness: 64 y/o M with PMHx significant for CVA with significant deconditioning, wheelchair-bound, A-fib, coronary artery disease with multiple stents, gastric ulcer with bleed, thoracic spine wound secondary to debridement for significant skin infection presented to ED with chief complaint of fevers x 1 day. Per patient, he has been experiencing chills for approximately 1 week, however today he felt feverish and so came to the ED. Patient also reports 2 episodes of watery nonbloody emesis today, and lightheadedness. Patient denies shortness of breath, abdominal pain, dysuria. ED COURSE: Labs significant for: Hemoglobin 6.3. BUN 38, creatinine 1.8, EGFR 47 (baseline for patient). Positive guaiac test. Lactic acid 1.4, lipase negative, Pro-Chavez negative, INR 1.6, PT 16.6. WBCs 9.5. Urinalysis turbid, 3+ blood, 14 RBCs, 32 WBCs, 6 epithelial cells, 4+ bacteria. Imaging significant for: EKG unremarkable. Patient received Protonix drip, 2 L bolus, ciprofloxacin. 3 units PRBC ordered. Tylenol given for fever. PMH: CVA, A-fib, CAD with stents, gastric ulcer with bleed PSH: Debridement of skin infection thoracic spinal area. SH: Denies alcohol, tobacco, illicit drug use. Allergies:?Ampicillin, sulfa drugs, hydrocodone Medications: Atorvastatin, diltiazem, Eliquis, metoprolol tartrate, isosorbide mononitrate Review of Systems Review of Systems Systems Reviewed: All systems reviewed, normal except as documented Past Medical History Past Medical History Comments PMH COMMENT: PMH: CVA, A-fib, CAD with stents, gastric ulcer with bleed PSH: Debridement of skin infection thoracic spinal area. SH: Denies alcohol, tobacco, illicit drug use. Allergies:?Ampicillin, sulfa drugs, hydrocodone Medications: Atorvastatin, diltiazem, Eliquis, metoprolol tartrate, isosorbide mononitrate Exam Vital Signs Temp Pulse Resp BP Pulse Ox O2 Del Method 101.6 F H 83 19 137/67 H 98 Room Air 10/16/24 19:20 10/16/24 19:20 10/16/24 19:20 10/16/24 19:20 10/16/24 19:20 10/16/24 19:20 Narrative Exam PE: Gen: Well-developed and well-nourished. HEENT: NCAT, PERRLA, EOMI, MMM, anicteric conjunctivae. CVS: normal S1 and S2. No M/R/G. Regular rate, irregular irregular rhythm. Resp: CTA B/L. No rhonchi, rales, crackles or wheezing. Abd: soft, non-tender, non-distended. MSK: Stage IV pressure ulcer thoracic spinal region, with serosanguineous drainage, nontender. BLE 1/5 strength, trace edema. Neuro: CN II-XII grossly intact. Alert and oriented x3. Psych: appropriate mood and affect. Results: Labs 10/16/24 18:55 10/16/24 18:00 Labs: Short CBC 10/16/24 Range/Units 18:55 WBC 9.5 (3.8-10.6) Thou/mm3 Hgb 6.3 L* (13.5-16.0) g/dL Hct 19.4 L* (41.0-53.0) % Plt Count 250 (140-440) Thou/mm3 BMP 10/16/24 18:00 Sodium 134 L Potassium 3.6 Chloride 102 Carbon Dioxide 20.9 BUN 38 H Creatinine 1.8 H Glucose 132 H Calcium 8.4 Cardiac Enzymes 10/16/24 Range/Units 18:00 Troponin I 0.032 (0.0-0.045) ng/mL Liver Function 10/16/24 Range/Units 18:00 Total Bilirubin 0.4 (0.3-1.2) mg/dL AST 39 H (0-34) U/L ALT 35 (10-49) U/L Alkaline Phosphatase 105 (46-116) U/L Albumin 3.4 (3.4-4.8) gm/dL Urine 10/16/24 Range/Units 18:00 Urine Color Yellow (Lt Yel-Yel) Urine Clarity Turbid A (Clear/Hazy) Urine pH 5.5 (5.0-7.0) Ur Specific Harmans 1.014 (1.001-1.035) Urine Protein 1+ A (Neg - Trace) Urine Glucose (UA) Negative (Negative) Quality Measures Quality Measures VTE prophylaxis Medications Home Medications and Allergies Home Medications ?Medication ?Instructions ?Recorded ?Confirmed ?Type atorvastatin 80 mg tablet 80 mg PO QPM 10/20/23 History clopidogrel 75 mg tablet 75 mg PO QDAY 10/20/2307/18 History isosorbide mononitrate 30 mg 30 mg PO QDAY 10/20/23 History tablet,extended release 24 hr metoprolol tartrate 25 mg tablet 25 mg PO BID 10/20/23 07/18/24 History apixaban 2.5 mg tablet (Eliquis) 2.5 mg PO BID 5 07/18/24 History famotidine 20 mg tablet 20 mg PO .bed 06/15/2407/18 History ferrous sulfate 325 mg (65 mg 325 mg PO BID 06/15/24 0 07/18/24 History iron) tablet (Feosol) diltiazem HCl 60 mg 60 mg PO BID 07/18/24 History capsule,extended release 12 hr hydrocodone 5 mg-acetaminophen 325 1 tab PO Q4H 07/18/24 History mg tablet oxycodone 5 mg tablet 5 mg PO Q4H 07/18/24 5 History Allergies Allergy/AdvReac Type Severity Reaction Status Date / Time bee pollen Allergy Severe Anaphylaxis Verified 07/18/24 10:06 Sulfa (Sulfonamide Allergy Intermediate Swelling Verified 07/18/24 10:06 Antibiotics) of Lip/Tongue/Throat ampicillin Allergy Unknown Hives Verified 07/18/24 10:06 hydrocodone AdvReac Unknown Nausea Verified 07/18/24 10:06 COLLAGEN Allergy Intermediate Rash Uncoded 07/18/24 10:06 Visit Medications Acetaminophen (Acetaminophen 325 Mg Tablet) 650 mg PO Q6H PRN PRN Reason: Fever >100.4 or pain Stop: 11/15/24 20:18 Atorvastatin Calcium (Atorvastatin Calcium 20 Mg Tablet) 80 mg PO QPM [facility] Stop: 11/15/24 20:59 Magnesium Sulfate (Magnesium Sulfate Ivpb) 4 gm in 50 mls @ 12.5 mls/hr IV X1 ONE Stop: 10/16/24 23:01 Last Admin: 10/16/24 20:26 Dose: 12.5 mls/hr Pantoprazole Sodium (Protonix/Ns 80mg Iv Premix) 80 mg in 100 mls @ 10 mls/hr IV Q10H [facility] Stop: 10/19/24 17:19 Last Admin: 10/16/24 19:59 Dose: 10 mls/hr Ceftriaxone Sodium/Dextrose (Rocephin/D5w 1gm Iv Premix) 1 gm in 50 mls @ 100 mls/hr IV QDAY [facility] Stop: 10/24/24 08:59 Isosorbide Mononitrate (Isosorbide Er Mononitrate 30 Mg Tabcr) 30 mg PO QDAY [facility] Stop: 11/16/24 08:59 Metoprolol Tartrate (Metoprolol Tartrate 25 Mg Tablet) 25 mg PO BID [facility] Stop: 11/15/24 20:59 Non-Formulary Medication (Diltiazem Hcl) 60 mg PO BID [facility] Stop: 11/15/24 20:59 Discontinued Medications Acetaminophen (Ofirmev Inj) 1,000 mg in 100 mls @ 250 mls/hr IV Q6HR [facility] Stop: 10/17/24 12:23 Last Infusion: 10/16/24 18:59 Dose: Infused Lactated Ringer's (Lactated Ringers) 1,000 mls @ 999 mls/hr IV .Q1H1M ONE Stop: 10/16/24 18:37 Last Infusion: 10/16/24 19:05 Dose: Infused Ciprofloxacin/Dextrose (Cipro Ivpb) 400 mg in 200 mls @ 200 mls/hr IV X1 ONE Stop: 10/16/24 19:45 Last Admin: 10/16/24 19:45 Dose: 200 mls/hr Lactated Ringer's (Lactated Ringers) 1,000 mls @ 999 mls/hr IV .Q1H1M ONE Stop: 10/16/24 20:03 Last Admin: 10/16/24 20:24 Dose: 999 mls/hr Ondansetron HCl (Ondansetron Inj 2 Mg/Ml Inj 2 Ml) 4 mg IVP X1 ONE; Protocol Stop: 10/16/24 17:37 Last Admin: 10/16/24 18:04 Dose: 4 mg Pantoprazole Sodium (Pantoprazole Inj 40 Mg Vial) 40 mg IVP X1 ONE Stop: 10/16/24 19:21 Last Admin: 10/16/24 20:03 Dose: 40 mg Assessment & Plan Plan 64 y/o M with PMHx significant for CVA with significant deconditioning, wheelchair-bound, A-fib, coronary artery disease with multiple stents, gastric ulcer with bleed, thoracic spine wound secondary to debridement for significant skin infection presented to ED with chief complaint of fevers x 1 day, admitted for GI bleed and UTI. #GI bleed #Acute symptomatic anemia Patient presented with hemoglobin 6.3, positive stool guaiac test. Patient also reports symptoms, lightheadedness. Patient history of GIB 2 years ago. On current blood thinners, Plavix and Eliquis. ED ordered 3 units PRBC. - Posttransfusion H&H - Monitor hemoglobin, transfuse as needed - Telemonitoring - GI consulted, appreciate recommendations - Clear liquid diet, n.p.o. after midnight anticipation of potential EGD - Protonix drip - Hold anticoag's #UTI, nonseptic Patient presented with complaints of fevers and chills. Noted to have temperature 103.1, tachycardia in the ED, SIRS positive. WBC 9.5. Urinalysis shows 14 RBCs, 32 WBCs, 6 epithelial cells, 4+ bacteria. Patient received 2 L bolus normal saline in the ED. Sofa score 1, no signs of endorgan damage, patient nonseptic. - Blood and urine cultures pending, follow-up - Ceftriaxone 1 g IV daily #Stage IV pressure ulcer, thoracic spinal area Patient has stage IV pressure ulcer in the thoracic spinal area. Patient simply has a significant skin bed requiring debridement of the area, appears to have wound dehiscence. Ulcer draining serosanguineous fluid, nonerythematous, nontender, does not appear to be infected. - Wound care referral #A-fib #CAD with stents #CVA #CKD Patient history as stated. Patient does not report history of CKD, however baseline creatinine 2.0 per chart review. Patient wheelchair-bound due to CVA. Patient A-fib currently rate controlled. - Hold anticoag's as above - Resume home metoprolol tartrate 25 mg p.o. twice daily - Diltiazem 30 mg p.o. 4 times daily, do not have patient's home extended release dosage - Avoid nephrotoxins - Renally dose meds DVT prophylaxis: SCDs GI prophylaxis: Protonix drip Diet: Clear liquid diet, n.p.o. after midnight Lines: Peripheral IVs Code status: Full code Plan of care discussed with attending Dr. Gallego. Scooter Chauhan MD PGY-2
[2024-10-16 20:49] LABS: Path Review Blood Smear Sent to Pathologist
[2024-10-16] MEDS: METOPROLOL TARTRATE 25 MG TABLET PO (21:25)
[2024-10-16] MEDS: ATORVASTATIN CALCIUM 20 MG TABLET 80 MG PO (21:26)
[2024-10-16] MEDS: DILTIAZEM 30 MG TABLET PO (21:26)
--- NOTE | 2024-10-16 21:45 | PD.IMCONS ---
HPI Data of Consult Requesting Physician: Geoff Gallego MD Primary Care Provider: Stephanie Summers MD Consult Narrative Reason for consult: H/H 6.3/19.4 FOBT positive vomiting, low-grade fever History of present illness: 64 years old male I been asked by the emergency room physician faculty i on call medical assistant for evaluation for hemoglobin 6.3 hematocrit 19.4 with a grossly Hemoccult positive strategies examination Patient has BUN/creatinine of 38 and 1.8 and pro time INR of 1.6 Patient does have a history of CVA wheelchair-bound came from shelter atrial fibrillation on Plavix and Eliquis coronary artery status post PTCA history of gastric ulcer with previous GI bleed and thoracic spine wound from a recent thoracic spine surgery for infected back cc:: cc: Geoff Gallego MD Review of Systems Review of Systems Systems Reviewed: All systems reviewed, normal except as documented Past Medical History Surgical History OTHER SURGICAL HX: As in the history of present illness Meds Home Medications and Allergies Home Medications ?Medication ?Instructions ?Recorded ?Confirmed ?Type atorvastatin 80 mg tablet 80 mg PO QPM 10/20/23 10/17/24 History clopidogrel 75 mg tablet 75 mg PO QDAY 10/20/23 10/17/24 History isosorbide mononitrate 30 mg 30 mg PO QDAY 10/20/23 10/17/24 History tablet,extended release 24 hr metoprolol tartrate 25 mg tablet 25 mg PO BID 10/20/23 10/17/24 History apixaban 2.5 mg tablet (Eliquis) 2.5 mg PO BID 06/15/24 10/17/24 History famotidine 20 mg tablet 20 mg PO .bed 06/15/24 10/17/24 History diltiazem HCl 60 mg 60 mg PO BID 07/18/24 10/17/24 History capsule,extended release 12 hr pantoprazole 40 mg tablet,delayed 40 mg PO QDAY 10/17/24 10/17/24 History release Allergies Allergy/AdvReac Type Severity Reaction Status Date / Time bee pollen Allergy Severe Anaphylaxis Verified 07/18/24 10:06 Sulfa (Sulfonamide Allergy Intermediate Swelling Verified 07/18/24 10:06 Antibiotics) of Lip/Tongue/Throat ampicillin Allergy Unknown Hives Verified 07/18/24 10:06 hydrocodone AdvReac Unknown Nausea Verified 07/18/24 10:06 COLLAGEN Allergy Intermediate Rash Uncoded 07/18/24 10:06 Exam Vital Signs Temp Pulse Resp BP Pulse Ox O2 Del Method 97.3 F 82 14 160/76 H 100 Room Air 10/16/24 21:31 10/16/24 21:31 10/16/24 21:31 10/16/24 21:31 10/16/24 21:31 10/16/24 19:20 Constitutional Comments: Chronically ill-appearing Routine Respiratory Exam Comments: Normal to auscultation Routine Abdominal Exam Comments: Soft nontender Results Labs 10/18/24 06:09 10/18/24 06:09 Labs: Short CBC 10/16/24 Range/Units 18:55 WBC 9.5 (3.8-10.6) Thou/mm3 Hgb 6.3 L* (13.5-16.0) g/dL Hct 19.4 L* (41.0-53.0) % Plt Count 250 (140-440) Thou/mm3 BMP 10/16/24 18:00 Sodium 134 L Potassium 3.6 Chloride 102 Carbon Dioxide 20.9 BUN 38 H Creatinine 1.8 H Glucose 132 H Calcium 8.4 Cardiac Enzymes 10/16/24 Range/Units 18:00 Troponin I 0.032 (0.0-0.045) ng/mL Liver Function 10/16/24 Range/Units 18:00 Total Bilirubin 0.4 (0.3-1.2) mg/dL AST 39 H (0-34) U/L ALT 35 (10-49) U/L Alkaline Phosphatase 105 (46-116) U/L Albumin 3.4 (3.4-4.8) gm/dL Urine 10/16/24 Range/Units 18:00 Urine Color Yellow (Lt Yel-Yel) Urine Clarity Turbid A (Clear/Hazy) Urine pH 5.5 (5.0-7.0) Ur Specific [place] 1.014 (1.001-1.035) Urine Protein 1+ A (Neg - Trace) Urine Glucose (UA) Negative (Negative) Assessment and Plan Additional Assessment & Plan Additional Plan: # Acute posthemorrhagic anemia # FOBT positive Plan Agree with blood transfusion IV Protonix drip N.p.o. midnight tonight for upper endoscopy tomorrow morning consent obtained for fiberoptic esophagogastroduodenoscopy with possible biopsy possible therapeutic intervention under intravenous moderate sedation Other medical problems include atrial fibrillation on Eliquis Coronary artery status post PTCA on Plavix Back infection requiring surgical intervention CVA Wheelchair-bound Thank you very much for the opportunity to participate in the care of this patient
--- NOTE | 2024-10-16 23:20 | PC.NURSE ---
Called hospitalist, spoke to Dr. Chauhan. Made aware pt HR was in the 40s, pt denies of any pain or discomfort. No new orders received at this time.
[2024-10-17] VITALS (30 sets, daily range): BP systolic 134–179; BP diastolic 65–84; PULSE 51–84; RESP 12–99; TEMP 36.1–37.1; O2SAT 96–100; BMI 32.0
--- NOTE | 2024-10-17 00:55 | PC.NURSE ---
Called hospitalist, spoke to Dr. Chauhan. Made aware pt had a 3 second pause and heart rate fluctuating between 40-60s, lowest HR 38. Pt denies any pain or discomfort. No new orders received at this time. Plan of care ongoing.
[2024-10-17] MEDS: PANTOPRAZOLE/NS 80MG IV PREMIX 80 MG/100 ML BAG 10 MG IV ×2 (04:26→14:46)
--- NOTE | 2024-10-17 05:40 | PC.NURSE ---
Called hospitalist, spoke to resident Dr. Christensen. Made aware HR has been low and HR is still 50-60s, has scheduled dose of Diltizaem 30mg at 0600. Per MD, hold 0600 dose of Diltiazem, no parameters for now, states he will let day team know about the HR.
[2024-10-17 08:47] LABS: Basophils # (Auto) 0.0 Thou/mm3 (0.0-0.2); Basophils % (Auto) 0 % (0-2.5); Eosinophils # (Auto) 0.1 Thou/mm3 (0.0-0.5); Eosinophils % (Auto) 1 % (0-10); Hematocrit 30.8 % (41.0-53.0); Hemoglobin 10.0 g/dL (13.5-16.0); Immature Granulocytes Auto 0.04 Thou/mm3 (0.00-0.00); Lymphocytes # (Auto) 0.3 Thou/mm3 (1.0-4.8); Lymphocytes % (Auto) 4 % (10-50); Mean Corpuscular HGB Conc 32.5 g/dl (31.0-37.0); Mean Corpuscular Hemoglobin 27.3 pg (25.0-35.0); Mean Corpuscular Volume 84 fL (80-100); Monocytes # (Auto) 0.4 Thou/mm3 (0.0-0.8); Monocytes % (Auto) 5 % (0-12); Neutrophils # (Auto) 6.4 Thou/mm3 (1.8-7.7); Neutrophils % (Auto) 89 % (37-80); Nucleated Red Blood Cell # 0.00 Thou/mm3 (0.00-0.00); Nucleated Red Blood Cell % 0 /100 WBC (0); Platelet Count 242 Thou/mm3 (140-440); RDW Standard Deviation 50.3 fL (35.1-43.9); Red Blood Count 3.66 Miln/mm3 (4.50-5.90); White Blood Count 7.2 Thou/mm3 (3.8-10.6)
[2024-10-17 08:56] LABS: INR 1.5 (0.9-1.3); Partial Thromboplastin Time 35.0 Seconds (22.0-36.0); Prothrombin Time 15.5 Seconds (9.0-12.2)
[2024-10-17] MEDS: cefTRIAXone/D5w 1gm IV premix 1 GM/50 ML BAG IV (08:56)
[2024-10-17] MEDS: METOPROLOL TARTRATE 25 MG TABLET PO ×2 (08:57→20:40)
[2024-10-17] MEDS: ISOSORBIDE ER MONONITRATE 30 MG TABCR PO (08:57)
[2024-10-17 09:22] LABS: Alanine Aminotransferase 35 U/L (10-49); Albumin, Serum 3.1 gm/dL (3.4-4.8); Albumin/Globulin Ratio 1.2 (1.2-2.2); Alkaline Phosphatase 105 U/L (46-116); Anion Gap 11 (7-16); Aspartate Amino Transferase 39 U/L (0-34); BUN/Creatinine Ratio 17 Ratio (12-20); Bilirubin,Total 0.6 mg/dL (0.3-1.2); Blood Urea Nitrogen 25 mg/dL (9-23); Calcium 8.3 mg/dL (8.3-10.6); Calcium (Corrected) 9.0 mg/dL (8.5-10.1); Carbon Dioxide 21.1 mMol/L (20.0-31.0); Cardiac Risk Estimate 5.6 RATIO (4.0-6.7); Chloride 106 mMol/L (98-107); Cholesterol 101 mg/dL (132-200); Creatinine (Component) 1.5 mg/dL (0.6-1.3); Estimated Creatinine Clearance 57.2 mL/min (>60); Globulin 2.6 gm/dL (2.3-3.5); Glucose 113 mg/dL (74-106); HDL Cholesterol 18 mg/dL (40-60); LDL Cholesterol,Calculated 60 mg/dL (0-130); Magnesium 2.0 mg/dL (1.6-2.6); Osmolality,Calculated 281 (275-295); Phosphorous 3.0 mg/dL (2.4-5.1); Potassium 3.8 mMol/L (3.4-5.1); Sodium 138 mMol/L (136-145); Thyroid Stimulating Hormone 0.94 uIU/mL (0.55-4.78); Total Protein 5.7 gm/dL (5.7-8.2); Triglycerides 115 mg/dL (30-150); eGFR 52 See Note
--- NOTE | 2024-10-17 13:56 | ESPR_ITS ---
<Statement entered by Mandi Schumacher MD - 10/30/24 07:42> I reviewed above note and agree with findings and plans. I have also personally examined the patient with medicine team and went over assessment and plan with medical team including spring internship and resident physician. <Statement entered by David Wahl MD - 10/18/24 05:17> Patient was seen and examined at bedside. I agree on the assessment and plan on this note as documented by resident Yohana Torres PGY1. Mr. 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 Patient's GI bleed likely upper considering history of gastric ulcers and patient being on Eliquis, will hold Eliquis and Plavix for now, to undergo EGD later today. Will continue IV ceftriaxone for urinary tract infection, pending urine cultures. Patient's stage IV pressure ulcer seen at bedside, has clean margins, noted to be healing well there is no current signs of wound being infected, will continue with wound care. Patient noted to be in persistent atrial fibrillation, will hold Eliquis for now. Patient was transfused 3 units PRBC, H&H stable currently. Disposition telemetry pending GI bleed workup. Case discussed with attending Dr. Winsome Wahl MD PGY-2 Documentation for date of: 10/17/24 Subjective Subjective Interval history: Patient admitted overnight. Examined at bedside. Patient reports some back pain however that is chronic and only is exacerbated when he lies directly on his back. Endorses some shortness of breath. Denies abdominal pain, chest pain, urinary symptoms or leg swelling. Denies hematochezia or melena. No signs of active bleeding. Patient hemoglobin 6.3 and s/p 3 PRBCs in ED, repeat hemoglobin 10.0. Plan for EGD today, patient is on Protonix drip. Patient on ceftriaxone 1 g for UTI. On metoprolol to tartrate 25 mg twice daily, held afternoon diltiazem due to heart rate 57. Hold anticoagulation for now due to concern for GIB. Exam Vital Signs Temp Pulse Resp BP Pulse Ox O2 Del Method 97.3 F 67 16 161/78 H 100 Room Air 10/17/24 12:00 10/17/24 12:00 10/17/24 12:00 10/17/24 12:00 10/17/24 12:00 10/17/24 12:00 Narrative Exam GENERAL: AOx3, no acute distress, conversant HEENT: NC/AT, mucous membranes moist, bilateral sclera anicteric, +diminished b/l hearing CARDIOVASCULAR: regular rate and irregular rhythm, S1/S2 present, no murmurs appreciated PULMONARY: clear to auscultation bilaterally, no rales/rhonchi/wheezes ABDOMINAL: soft, non-tender, non-distended, no rebound/guarding, bowel sounds present EXTREMITIES: no peripheral edema BLE 1/5 strength SKIN: +stage IV pressure ulcer at lower thoracic region with serosanguineous drainage non erythematous. NEURO: CN II-XII grossly intact, no focal deficits, alert, following commands Objective Labs 10/17/24 08:17 10/17/24 08:17 Labs: Laboratory Results - last 24 hr 10/16/24 10/16/24 10/16/24 18:00 18:55 19:28 WBC 9.5 RBC 2.34 L Hgb 6.3 L* Hct 19.4 L* MCV 83 MCH 26.9 MCHC 32.5 RDW Std Deviation 51.0 H Plt Count 250 Neut % (Auto) 93 H Lymph % (Auto) 2 L [place] % (Auto) 3 Eos % (Auto) 0 Baso % (Auto) 0 Neut # (Auto) 8.9 H Lymph # (Auto) 0.2 L [place] # (Auto) 0.3 Eos # (Auto) 0.0 Baso # (Auto) 0.0 Immature Gran # (Auto) 0.08 H Absolute Nucleated RBC 0.00 Immature Gran % 1 H Nucleated RBC % 0 Smear Path Review Sent to Pathologist PT 16.6 H INR 1.6 H APTT 43.8 H Sodium 134 L Potassium 3.6 Chloride 102 Carbon Dioxide 20.9 Anion Gap 11 BUN 38 H Creatinine 1.8 H Estim Creat Clear Calc 47.0 L eGFR 42 L BUN/Creatinine Ratio 21 H Glucose 132 H Calculated Osmolality 279 Lactic Acid 1.4 Calcium 8.4 Corrected Calcium 8.9 Phosphorus 2.6 Magnesium 1.2 L Total Bilirubin 0.4 AST 39 H ALT 35 Alkaline Phosphatase 105 Lactate Dehydrogenase 183 Troponin I 0.032 B-Natriuretic Peptide 105 H Total Protein 6.0 Albumin 3.4 Globulin 2.6 Albumin/Globulin Ratio 1.3 Triglycerides Cholesterol LDL Cholesterol, Calc HDL Cholesterol Cholesterol/HDL Ratio Lipase 28 Procalcitonin 0.31 TSH Ur Collection Type Clean Catch Urine Color Yellow Urine Clarity Turbid A Urine pH 5.5 Ur Specific [place] 1.014 Urine Protein 1+ A Urine Glucose (UA) Negative Urine Ketones Negative Urine Blood 3+ A Urine Nitrite Negative Urine Bilirubin Negative Urine Urobilinogen (Auto) Negative Ur Leukocyte Esterase Positive Urine RBC 14 H Urine WBC 32 H Ur Squamous Epith Cells 6 H Urine Bacteria 4+ A Blood Type O Positive Antibody Screen NEGATIVE Crossmatch See Detail Blood Bank Wristband ID Yes 10/17/24 08:17 WBC 7.2 RBC 3.66 L Hgb 10.0 L D Hct 30.8 L D MCV 84 MCH 27.3 MCHC 32.5 RDW Std Deviation 50.3 H Plt Count 242 Neut % (Auto) 89 H Lymph % (Auto) 4 L [place] % (Auto) 5 Eos % (Auto) 1 Baso % (Auto) 0 Neut # (Auto) 6.4 Lymph # (Auto) 0.3 L [place] # (Auto) 0.4 Eos # (Auto) 0.1 Baso # (Auto) 0.0 Immature Gran # (Auto) 0.04 H Absolute Nucleated RBC 0.00 Immature Gran % 1 H Nucleated RBC % 0 Smear Path Review PT 15.5 H INR 1.5 H APTT 35.0 Sodium 138 Potassium 3.8 Chloride 106 Carbon Dioxide 21.1 Anion Gap 11 BUN 25 H Creatinine 1.5 H Estim Creat Clear Calc 57.2 L eGFR 52 L BUN/Creatinine Ratio 17 Glucose 113 H Calculated Osmolality 281 Lactic Acid Calcium 8.3 Corrected Calcium 9.0 Phosphorus 3.0 Magnesium 2.0 Total Bilirubin 0.6 AST 39 H ALT 35 Alkaline Phosphatase 105 Lactate Dehydrogenase Troponin I B-Natriuretic Peptide Total Protein 5.7 Albumin 3.1 L Globulin 2.6 Albumin/Globulin Ratio 1.2 Triglycerides 115 Cholesterol 101 L LDL Cholesterol, Calc 60 HDL Cholesterol 18 L Cholesterol/HDL Ratio 5.6 Lipase Procalcitonin TSH 0.94 Ur Collection Type Urine Color Urine Clarity Urine pH Ur Specific [place] Urine Protein Urine Glucose (UA) Urine Ketones Urine Blood Urine Nitrite Urine Bilirubin Urine Urobilinogen (Auto) Ur Leukocyte Esterase Urine RBC Urine WBC Ur Squamous Epith Cells Urine Bacteria Blood Type Antibody Screen Crossmatch Blood Bank Wristband ID Quality Measures Quality Measures none Assessment & Plan Assessment Current Active Medications: Generic Name Dose Route Start Last Admin Trade Name Freq PRN Reason Stop Dose Admin Acetaminophen 650 mg 10/16/24 20:19 Acetaminophen 325 Mg Tablet PO 11/15/24 20:18 Q6H PRN Fever >100.4 or pain Atorvastatin Calcium 80 mg 10/16/24 21:00 10/16/24 21:26 Atorvastatin Calcium 20 Mg Tablet PO 11/15/24 20:59 80 mg QPM HANNAH Administration Diltiazem HCl 30 mg 10/16/24 21:00 10/17/24 11:48 Diltiazem 30 Mg Tablet PO 11/15/24 20:59 Not Given QID HANNAH Pantoprazole Sodium 80 mg in 100 mls @ 10 mls/hr 10/16/24 19:20 10/17/24 04:26 Protonix/Ns 80mg Iv Premix IV 10/19/24 17:19 10 mls/hr Q10H HANNAH Administration Ceftriaxone Sodium/Dextrose 1 gm in 50 mls @ 100 mls/hr 10/17/24 09:00 10/17/24 08:56 Rocephin/D5w 1gm Iv Premix IV 10/24/24 08:59 100 mls/hr QDAY HANNAH Administration Isosorbide Mononitrate 30 mg 10/17/24 09:00 10/17/24 08:57 Isosorbide Er Mononitrate 30 Mg Tabcr PO 11/16/24 08:59 30 mg QDAY HANNAH Administration Metoprolol Tartrate 25 mg 10/16/24 21:00 10/17/24 08:57 Metoprolol Tartrate 25 Mg Tablet PO 11/15/24 20:59 25 mg BID HANNAH Administration Plan Agustin Schrader is a 64M with pmhx significant for CVA with residual deficit, wheelchair-bound, A-fib on Eliquis, coronary artery disease with multiple stents on Plavix, hx of gastric ulcer with bleed, and thoracic spine wound secondary to debridement for significant skin infection presented to [facility] ED on 10/16 with fever and chills and vomiting, admitted for GI bleed and UTI. #GIB (upper vs lower) #Acute symptomatic anemia Patient presented with hemoglobin 6.3 with positive stool guaiac test s/p 3 units pRBCs in ED. Symptomatic with lightheadedness. Denies hematemasis or melena. Reports had GIB 2 y/a. Post transfusion Hgb 10.0. Plan: - GI consulted, recs appreciated: EGD today, on Protonix drip - CTM hemoglobin, transfuse Hgb <7 - Tele to monitor for arrhythmias - Hold Eliquis and Plavix iso GIB #UTI Patient presented with complaints of fevers and chills for one day and one week respectively. In ED, febrile at 103.1, tachycardic, tachypnic and hypertensive but WBC wnl at 9.5, 3/4 SIRS. Lactic acid wnl. UA 14 RBCs, 32 WBCs, 4+ bacteria, +LE. s/p 2L LR in ED and ciprofloxacin x1 SOFA score 1, no signs of endorgan damage, patient nonseptic. Plan: - Ceftriaxone 1 g (10/17- - F/u BCx and UCx #Stage IV pressure ulcer, lower thoracic Patient has stage IV pressure ulcer in the thoracic spinal area from previous skin infection with debriedment that has is poorly healed. Ulcer draining serosanguineous fluid, nonerythematous, nontender, does not appear to be infected. Plan: - Wound care referral - CTM for signs of infection: erythema, further fevers, increasing pain, vitals #Atrial fibrillation, persistent, rate controlled on Eliquis #CAD with stents on Plavix #CVA with residual deficits Patient presents in atrial fibrillation, denies recent palpitations. Rate controlled with metoprolol and diltiazem and is on Eliquis. Patient wheelchair-bound due to CVA. Takes Plavix at home. Plan: - Hold Eliquis and Plavix as above iso suspicion of GIB - Resume home metoprolol tartrate 25 mg BID and diltiazem 30 mg QID, with parameters to hold if HR <60 #[id number] Patient does not report history of CKD, however baseline creatinine 1.8-2.0 per chart review with GFR 35-45. Cr on admission 1.8. Plan: - CTM Cr - Avoid nephrotoxins - Renally dose meds Hospital management: Lines: peripheral IV Diet: NPO for EGD Bowel: none GI prophylaxis: pantoprazole drip DVT prophylaxis: hold heparin iso GIB Disposition: tele for management of GIB CODE STATUS: Full Code Plan of care discussed with attending Dr. Schumacher, and PGY-2 Dr. Wahl. Yohana Torres, DO PGY-1 Internal Medicine
[2024-10-17] MEDS: DILTIAZEM 30 MG TABLET PO (20:39)
[2024-10-17] MEDS: ATORVASTATIN CALCIUM 20 MG TABLET 80 MG PO (20:40)
[2024-10-18] VITALS (15 sets, daily range): BP systolic 115–138; BP diastolic 56–95; PULSE 52–70; RESP 14–99; TEMP 36.2–36.6; O2SAT 95–98; BMI 32.0
[2024-10-18] MEDS: PANTOPRAZOLE/NS 80MG IV PREMIX 80 MG/100 ML BAG 10 MG IV ×2 (01:41→10:46)
[2024-10-18 06:19] LABS: Basophils # (Auto) 0.0 Thou/mm3 (0.0-0.2); Basophils % (Auto) 0 % (0-2.5); Eosinophils # (Auto) 0.2 Thou/mm3 (0.0-0.5); Eosinophils % (Auto) 3 % (0-10); Hematocrit 32.3 % (41.0-53.0); Hemoglobin 10.4 g/dL (13.5-16.0); Immature Granulocytes Auto 0.05 Thou/mm3 (0.00-0.00); Lymphocytes # (Auto) 0.4 Thou/mm3 (1.0-4.8); Lymphocytes % (Auto) 7 % (10-50); Mean Corpuscular HGB Conc 32.2 g/dl (31.0-37.0); Mean Corpuscular Hemoglobin 27.5 pg (25.0-35.0); Mean Corpuscular Volume 85 fL (80-100); Monocytes # (Auto) 0.5 Thou/mm3 (0.0-0.8); Monocytes % (Auto) 9 % (0-12); Neutrophils # (Auto) 4.5 Thou/mm3 (1.8-7.7); Neutrophils % (Auto) 79 % (37-80); Nucleated Red Blood Cell # 0.00 Thou/mm3 (0.00-0.00); Nucleated Red Blood Cell % 0 /100 WBC (0); Platelet Count 253 Thou/mm3 (140-440); RDW Standard Deviation 52.4 fL (35.1-43.9); Red Blood Count 3.78 Miln/mm3 (4.50-5.90); White Blood Count 5.7 Thou/mm3 (3.8-10.6)
[2024-10-18 07:00] LABS: Alanine Aminotransferase 69 U/L (10-49); Albumin, Serum 3.2 gm/dL (3.4-4.8); Albumin/Globulin Ratio 1.2 (1.2-2.2); Alkaline Phosphatase 141 U/L (46-116); Anion Gap 8 (7-16); Aspartate Amino Transferase 82 U/L (0-34); BUN/Creatinine Ratio 16 Ratio (12-20); Bilirubin,Total 0.3 mg/dL (0.3-1.2); Blood Urea Nitrogen 25 mg/dL (9-23); Carbon Dioxide 23.8 mMol/L (20.0-31.0); Chloride 106 mMol/L (98-107); Creatinine (Component) 1.6 mg/dL (0.6-1.3); Estimated Creatinine Clearance 53.6 mL/min (>60); Globulin 2.7 gm/dL (2.3-3.5); Glucose 115 mg/dL (74-106); Magnesium 1.8 mg/dL (1.6-2.6); Osmolality,Calculated 281 (275-295); Phosphorous 3.3 mg/dL (2.4-5.1); Potassium 3.9 mMol/L (3.4-5.1); Sodium 138 mMol/L (136-145); Total Protein 5.9 gm/dL (5.7-8.2); eGFR 48 See Note
[2024-10-18 07:08] LABS: Calcium 9.0 mg/dL (8.3-10.6); Calcium (Corrected) 9.6 mg/dL (8.5-10.1)
--- NOTE | 2024-10-18 08:17 | XR_ITS ---
Examination: Abdomen sonogram, Limited Date and time of exam: October 18, 2024 1143 hours INDICATIONS: Elevated liver function tests on laboratory examination today Technique: Real-time paul scale transabdominal sonographic images of the upper abdomen obtained. Findings: Absent gallbladder Normal common bile duct 0.3 cm Pancreatic head 2.8 cm Liver 19.3 cm fatty infiltration irregular contour no focal liver lesions Normal hepatopedal portal venous flow Patent IVC IMPRESSION: Normal common bile duct. Cirrhosis versus primary hepatocellular disease, moderate hepatomegaly
[2024-10-18] MEDS: METOPROLOL TARTRATE 25 MG TABLET PO ×2 (09:09→20:42)
[2024-10-18] MEDS: ISOSORBIDE ER MONONITRATE 30 MG TABCR PO (09:10)
[2024-10-18] MEDS: cefTRIAXone/D5w 1gm IV premix 1 GM/50 ML BAG IV (09:11)
[2024-10-18] MEDS: Magnesium Sulfate 2 GM Ivpb 2 GM/50 ML BAG IV (09:12)
--- NOTE | 2024-10-18 10:33 | PC.SS ---
Late note 10-17-24: SS met with patient and regarding his d/c plan. Pt is alert/oriented. Pt was admitted for UTI, GI Bleed. provided correct address: [address] [place] [id number]. Pt resides with . Pt is bedbound. Pt has a sliding board and wheelchair. cares for pt at home. states family will also help care for pt at home. is requesting pt d/c to SNF and was previously at [facility]. SS spoke to Carmela from [facility] who explained pt has exhausted all Medicare days and will regenerate in 60 days with no hospital admissions. is aware. SS provided verbal options to pay privately at SNF or return home with HH. is now requesting pt to return home with Angela . Pt followed up with PCP, October 10, 2024. is patient's medical decision maker if he is unable. is requesting a alejandrina lift. refused hospital bed. D/C plan: Return home with [facility] Next of Kin: Sheila Watkins, , phone# [phone] PCP: Dr. Summers Address: [address] [place] [id number]
[2024-10-18] MEDS: CLOPIDOGREL BISULFATE 75 MG TABLET PO (11:00)
[2024-10-18] MEDS: APIXABAN 2.5 MG TABLET 5 MG PO ×2 (11:00→20:42)
[2024-10-18] MEDS: MUPIROCIN OINT 2% 15 GM TUBE TOP ×3 (11:00→21:11)
[2024-10-18] MEDS: COLLAGENASE OINT 30 GM TUBE TOP (11:04)
--- NOTE | 2024-10-18 11:05 | PC.SS ---
Follow up note: Liver ultra sound pending. Pt will return home with HH and prefers [facility] .
--- NOTE | 2024-10-18 11:45 | ESPR_ITS ---
<Statement entered by Mandi Schumacher MD - 10/30/24 07:43> I reviewed above note and agree with findings and plans. I have also personally examined the patient with medicine team and went over assessment and plan with medical team including web marketing intern and resident physician. <Statement entered by Elyse Centeno MD - 10/18/24 15:17> Patient seen at bedside. Currently saturating on room air. Patient underwent EGD last night which was evident of bleeding esophageal ulcers as well as gastritis, will transition patient to p.o. Protonix. Patient will need to follow-up outpatient with GI to follow-up on pathology reports of the biopsies obtained during EGD. Per GI recommendation will resume home Plavix and Eliquis and continue to monitor for any signs of bleeding and drop in hemoglobin. Patient also had transaminitis, will order liver ultrasound and decrease home statin to 40 mg. Will anticipate discharge home tomorrow. Patient was seen and examined by me personally. I have directly supervised and reviewed documentation by the team resident and agree with its findings. ------- Plan of care was discussed with the attending, Dr. Winsome Centeno, PGY-2 Documentation for date of: 10/18/24 Subjective Subjective Interval history: No acute overnight events. Patient seen and examined at bedside. Patient reports no pain, denies chest pain abdominal pain, right upper quadrant pain, back pain or urinary symptoms at this time. Denies hematochezia or melena, no signs of active bleeding. Yesterday EGD showed esophageal ulcers oozing blood, GE junction polyps resected and cauterized, and gastritis. Discontinue protonix drip, start PO pantoprazole [address] Claros Eliquis and Plavix can be restarted today as benefits outweigh risks, monitor H&H for the next 24 hours. A.m. labs show elevation of AST/ALT from 39/35-82/69 with elevation in alk phos as well. Discontinue atorvastatin 80 mg due to elevation in liver enzymes. Liver ultrasound showed fatty infiltration with irregular contour but no focal liver lesions and a normal common bile duct. Magnesium 1.8, repleted with mag sulfate 2 g. Cr and BUN stable. MRSA nares positive, started mupirocin and 3 times daily for 5 to 7 days as nasal swabs. Exam Vital Signs Temp Pulse Resp BP Pulse Ox O2 Del Method O2 Flow Rate 97.1 F 66 17 115/56 L 98 Room Air 3 10/18/24 08:00 10/18/24 09:10 10/18/24 08:00 10/18/24 09:10 10/18/24 08:00 10/18/24 08:00 10/17/24 19:43 Narrative Exam GENERAL: AOx3, no acute distress, conversant HEENT: NC/AT, mucous membranes moist, bilateral sclera anicteric, +diminished b/l hearing CARDIOVASCULAR: regular rate and irregular rhythm, S1/S2 present, no murmurs appreciated PULMONARY: clear to auscultation bilaterally, no rales/rhonchi/wheezes ABDOMINAL: soft, non-tender, non-distended, no rebound/guarding, bowel sounds present EXTREMITIES: no peripheral edema BLE 1/5 strength SKIN: +stage IV pressure ulcer at lower thoracic region with serosanguineous drainage non erythematous. NEURO: CN II-XII grossly intact, no focal deficits, alert, following commands Objective Labs 10/18/24 06:09 10/18/24 06:09 Labs: Laboratory Results - last 24 hr 10/16/24 10/18/24 19:28 06:09 WBC 5.7 RBC 3.78 L Hgb 10.4 L Hct 32.3 L MCV 85 MCH 27.5 MCHC 32.2 RDW Std Deviation 52.4 H Plt Count 253 Neut % (Auto) 79 Lymph % (Auto) 7 L [place] % (Auto) 9 Eos % (Auto) 3 Baso % (Auto) 0 Neut # (Auto) 4.5 Lymph # (Auto) 0.4 L [place] # (Auto) 0.5 Eos # (Auto) 0.2 Baso # (Auto) 0.0 Immature Gran # (Auto) 0.05 H Absolute Nucleated RBC 0.00 Immature Gran % 1 H Nucleated RBC % 0 Sodium 138 Potassium 3.9 Chloride 106 Carbon Dioxide 23.8 Anion Gap 8 BUN 25 H Creatinine 1.6 H Estim Creat Clear Calc 53.6 L eGFR 48 L BUN/Creatinine Ratio 16 Glucose 115 H Calculated Osmolality 281 Calcium 9.0 Corrected Calcium 9.6 Phosphorus 3.3 Magnesium 1.8 Total Bilirubin 0.3 AST 82 H ALT 69 H Alkaline Phosphatase 141 H D Total Protein 5.9 Albumin 3.2 L Globulin 2.7 Albumin/Globulin Ratio 1.2 Crossmatch See Detail Quality Measures Quality Measures none Assessment & Plan Assessment Current Active Medications: Generic Name Dose Route Start Last Admin Trade Name Joel PRN Reason Stop Dose Admin Acetaminophen 650 mg 10/16/24 20:19 Acetaminophen 325 Mg Tablet PO 11/15/24 20:18 Q6H PRN Fever >100.4 or pain Apixaban 5 mg 10/18/24 10:00 10/18/24 11:00 Apixaban 2.5 Mg Tablet PO 11/17/24 09:59 5 mg BID HANNAH Administration Clopidogrel Bisulfate 75 mg 10/18/24 10:00 10/18/24 11:00 Clopidogrel Bisulfate 75 Mg Tablet PO 11/17/24 09:59 75 mg QDAY HANNAH Administration Collagenase 0 gm 10/18/24 09:00 10/18/24 11:04 Collagenase Oint 30 Gm Tube TOP 11/17/24 08:59 1 applicatio QDAY HANNAH Administration Diltiazem HCl 30 mg 10/17/24 16:20 10/18/24 05:19 Diltiazem 30 Mg Tablet PO 11/15/24 20:59 Not Given QID HANNAH Pantoprazole Sodium 80 mg in 100 mls @ 10 mls/hr 10/16/24 19:20 10/18/24 10:46 Protonix/Ns 80mg Iv Premix IV 10/19/24 17:19 10 mls/hr Q10H HANNAH Administration Ceftriaxone Sodium/Dextrose 1 gm in 50 mls @ 100 mls/hr 10/17/24 09:00 10/18/24 09:11 Rocephin/D5w 1gm Iv Premix IV 10/24/24 08:59 100 mls/hr QDAY HANNAH Administration Isosorbide Mononitrate 30 mg 10/17/24 09:00 10/18/24 09:10 Isosorbide Er Mononitrate 30 Mg Tabcr PO 11/16/24 08:59 30 mg QDAY HANNAH Administration Metoprolol Tartrate 25 mg 10/17/24 16:20 10/18/24 09:09 Metoprolol Tartrate 25 Mg Tablet PO 11/15/24 20:59 25 mg BID HANNAH Administration Mupirocin 0 gm 10/18/24 10:00 10/18/24 11:00 Mupirocin Oint 2% 15 Gm Tube TOP 10/25/24 09:59 1 applicatio TID HANNAH Administration Plan Agustin Schrader is a 64M with pmhx significant for CVA with residual deficit, wheelchair-bound, A-fib on Eliquis, coronary artery disease with multiple stents on Plavix, hx of gastric ulcer with bleed, and thoracic spine wound secondary to debridement for significant skin infection presented to [facility] ED on 10/16 with fever and chills and vomiting, admitted for GI bleed and UTI. #Upper GIB #Acute symptomatic anemia Patient presented with hemoglobin 6.3 with positive stool guaiac test s/p 3 units pRBCs in ED. Symptomatic with lightheadedness. Denies hematemasis or melena. Reports had GIB 2 y/a. Post transfusion Hgb 10.0. Plan: - GI consulted, recs appreciated: EGD showed esophageal ulcers oozing blood, gastroesophageal junction polyps that were resected with bleeding at the polypectomy cauterized, and gastritis - Discontinue IV pantoprazole, start PO pantoprazole 40 mg BID - CTM hemoglobin, transfuse Hgb <7 - Tele to monitor for arrhythmias #Atrial fibrillation, persistent rate controlled, on Eliquis #CAD with stents on Plavix #CVA with residual deficits Patient presents in atrial fibrillation, denies recent palpitations. Rate controlled with metoprolol and diltiazem and is on Eliquis 2.5 mg BID. Patient wheelchair-bound due to CVA. Takes Plavix and atorvastatin 80 mg at home. Patient does not meet criteria for reduced dose with only one criteria of Cr >1.5 being met. Plan: - Per GI, restart Plavix 75 mg daily and start Eliquis 5 mg BID - Resume home metoprolol tartrate 25 mg BID and diltiazem 30 mg QID, with parameters to hold if HR <60 - CTM H&H for the next 24h iso recent GIB and initiation of anticoagulation #Acute Transaminitis #MAFLD On admission AST/ALT 39/35 and alk phos wnl, on 10/18 elevated to 82/69 and alk phos elevated 141. Has hx of elevated alk phos. No hx of liver disease. Likely 2/2 medication induced high atorvastatin dose iso recent hospitalization. Liver ultrasound showed fatty infiltration with irregular contour no focal liver lesions and normal common bile duct. Plan: - Discontinue atorvastatin 80 mg qhs - Recommend if restart atorvastatin, to start on 20 mg qhs - Recommend to follow-up outpatient #UTI Patient presented with complaints of fevers and chills for one day and one week respectively. In ED, febrile at 103.1, tachycardic, tachypnic and hypertensive but WBC wnl at 9.5, 3/4 SIRS. Lactic acid wnl. UA 14 RBCs, 32 WBCs, 4+ bacteria, +LE. s/p 2L LR in ED and ciprofloxacin x1 SOFA score 1, no signs of endorgan damage, patient nonseptic. BCx NGTD Plan: - Ceftriaxone 1 g (10/17- - Plan to transition to renally dosed Macrobid outpatient - F/u UCx #Stage IV pressure ulcer, lower thoracic Patient has stage IV pressure ulcer in the thoracic spinal area from previous skin infection with debriedment that has is poorly healed. Ulcer draining serosanguineous fluid, nonerythematous, nontender, does not appear to be infected. Plan: - Wound care referral - CTM for signs of infection: erythema, further fevers, increasing pain, vitals #CKDIIIb Patient does not report history of CKD, however baseline creatinine 1.8-2.0 per chart review with GFR 35-45. Cr on admission 1.8. Plan: - CTM Cr - Avoid nephrotoxins - Renally dose meds Hospital management: Lines: peripheral IV Diet: Peptic Ulcer Disease/GERD/[place] Bowel: Senna/Docusate GI prophylaxis: pantoprazole drip DVT prophylaxis: Eliquis 5 BID Disposition: tele for management of GIB CODE STATUS: Full Code Plan of care discussed with attending Dr. Schumacher, and PGY-2 Dr. Wahl. Yohana Torres, DO PGY-1 Internal Medicine
[2024-10-18] MEDS: DILTIAZEM 30 MG TABLET PO ×3 (12:33→20:40)
--- NOTE | 2024-10-18 12:37 | PC.SS ---
SS has sent DME order for alejandrina lift using [facility], [place].
[2024-10-18] MEDS: PANTOPRAZOLE 40 MG TABLET PO ×2 (16:01→20:42)
--- NOTE | 2024-10-18 19:07 | PD.IMPROG ---
Documentation for date of: 10/18/24 Subjective Subjective Interval history: Hemoglobin hematocrit 10.4 and 32.3 BUN/creatinine 25 and 1.6 Upper endoscopy showed a GE junction polyp endoscopically resected which was the bleeding site then bipolar gold heater probe as well as multiple distal esophageal ulcers Exam Vital Signs Temp Pulse Resp BP Pulse Ox O2 Del Method O2 Flow Rate 97.6 F 70 19 130/95 H 98 Room Air 3 10/18/24 16:00 10/18/24 18:46 10/18/24 18:46 10/18/24 16:15 10/18/24 16:00 10/18/24 16:00 10/17/24 19:43 Objective Labs 10/18/24 06:09 10/18/24 06:09 Labs: Laboratory Results - last 24 hr 10/16/24 10/18/24 19:28 06:09 WBC 5.7 RBC 3.78 L Hgb 10.4 L Hct 32.3 L MCV 85 MCH 27.5 MCHC 32.2 RDW Std Deviation 52.4 H Plt Count 253 Neut % (Auto) 79 Lymph % (Auto) 7 L [place] % (Auto) 9 Eos % (Auto) 3 Baso % (Auto) 0 Neut # (Auto) 4.5 Lymph # (Auto) 0.4 L [place] # (Auto) 0.5 Eos # (Auto) 0.2 Baso # (Auto) 0.0 Immature Gran # (Auto) 0.05 H Absolute Nucleated RBC 0.00 Immature Gran % 1 H Nucleated RBC % 0 Sodium 138 Potassium 3.9 Chloride 106 Carbon Dioxide 23.8 Anion Gap 8 BUN 25 H Creatinine 1.6 H Estim Creat Clear Calc 53.6 L eGFR 48 L BUN/Creatinine Ratio 16 Glucose 115 H Calculated Osmolality 281 Calcium 9.0 Corrected Calcium 9.6 Phosphorus 3.3 Magnesium 1.8 Total Bilirubin 0.3 AST 82 H ALT 69 H Alkaline Phosphatase 141 H D Total Protein 5.9 Albumin 3.2 L Globulin 2.7 Albumin/Globulin Ratio 1.2 Crossmatch See Detail Impressions Impression: GE junction mass/polyp endoscopic resection followed by bipolar gold heater probe for hemostasis Distal esophageal ulcers Patient can be discharged on Protonix as well as apixaban Assessment & Plan A&P Narrative # Acute posthemorrhagic anemia # FOBT positive Plan Agree with blood transfusion IV Protonix drip N.p.o. midnight tonight for upper endoscopy tomorrow morning consent obtained for fiberoptic esophagogastroduodenoscopy with possible biopsy possible therapeutic intervention under intravenous moderate sedation Other medical problems include atrial fibrillation on Eliquis Coronary artery status post PTCA on Plavix Back infection requiring surgical intervention CVA Wheelchair-bound Thank you very much for the opportunity to participate in the care of this patient Time Spent With Patient Time: Total time spent is greater than 50% in coordination of care (as documented) at patient's floor/unit and/or counseling patient:
[2024-10-19] VITALS (10 sets, daily range): BP systolic 119–165; BP diastolic 64–90; PULSE 55–85; RESP 10–98; TEMP 36.3–36.8; O2SAT 95–99; BMI 33.1; BMI 33.0
[2024-10-19] MEDS: MUPIROCIN OINT 2% 15 GM TUBE TOP ×2 (05:07→14:20)
[2024-10-19 05:36] LABS: Basophils # (Auto) 0.0 Thou/mm3 (0.0-0.2); Basophils % (Auto) 0 % (0-2.5); Eosinophils # (Auto) 0.2 Thou/mm3 (0.0-0.5); Eosinophils % (Auto) 3 % (0-10); Hematocrit 30.7 % (41.0-53.0); Hemoglobin 9.7 g/dL (13.5-16.0); Immature Granulocytes Auto 0.04 Thou/mm3 (0.00-0.00); Lymphocytes # (Auto) 0.6 Thou/mm3 (1.0-4.8); Lymphocytes % (Auto) 11 % (10-50); Mean Corpuscular HGB Conc 31.6 g/dl (31.0-37.0); Mean Corpuscular Hemoglobin 27.0 pg (25.0-35.0); Mean Corpuscular Volume 86 fL (80-100); Monocytes # (Auto) 0.5 Thou/mm3 (0.0-0.8); Monocytes % (Auto) 9 % (0-12); Neutrophils # (Auto) 4.3 Thou/mm3 (1.8-7.7); Neutrophils % (Auto) 77 % (37-80); Nucleated Red Blood Cell # 0.00 Thou/mm3 (0.00-0.00); Nucleated Red Blood Cell % 0 /100 WBC (0); Platelet Count 226 Thou/mm3 (140-440); RDW Standard Deviation 52.3 fL (35.1-43.9); Red Blood Count 3.59 Miln/mm3 (4.50-5.90); White Blood Count 5.6 Thou/mm3 (3.8-10.6)
[2024-10-19 06:17] LABS: Alanine Aminotransferase 65 U/L (10-49); Albumin, Serum 3.2 gm/dL (3.4-4.8); Albumin/Globulin Ratio 1.3 (1.2-2.2); Alkaline Phosphatase 141 U/L (46-116); Anion Gap 9 (7-16); Aspartate Amino Transferase 65 U/L (0-34); BUN/Creatinine Ratio 15 Ratio (12-20); Bilirubin,Total 0.2 mg/dL (0.3-1.2); Blood Urea Nitrogen 23 mg/dL (9-23); Calcium 8.8 mg/dL (8.3-10.6); Calcium (Corrected) 9.4 mg/dL (8.5-10.1); Carbon Dioxide 22.6 mMol/L (20.0-31.0); Chloride 106 mMol/L (98-107); Creatinine (Component) 1.5 mg/dL (0.6-1.3); Estimated Creatinine Clearance 58.2 mL/min (>60); Globulin 2.5 gm/dL (2.3-3.5); Glucose 130 mg/dL (74-106); Magnesium 2.3 mg/dL (1.6-2.6); Osmolality,Calculated 281 (275-295); Phosphorous 2.7 mg/dL (2.4-5.1); Potassium 4.2 mMol/L (3.4-5.1); Sodium 138 mMol/L (136-145); Total Protein 5.7 gm/dL (5.7-8.2); eGFR 52 See Note
[2024-10-19] MEDS: cefTRIAXone/D5w 1gm IV premix 1 GM/50 ML BAG IV (09:23)
[2024-10-19] MEDS: ISOSORBIDE ER MONONITRATE 30 MG TABCR PO (09:24)
[2024-10-19] MEDS: METOPROLOL TARTRATE 25 MG TABLET PO (09:24)
[2024-10-19] MEDS: APIXABAN 2.5 MG TABLET 5 MG PO (09:24)
[2024-10-19] MEDS: PANTOPRAZOLE 40 MG TABLET PO (09:24)
[2024-10-19] MEDS: CLOPIDOGREL BISULFATE 75 MG TABLET PO (09:24)
[2024-10-19] MEDS: COLLAGENASE OINT 30 GM TUBE TOP (09:25)
[2024-10-19] MEDS: ZINC SULFATE 220 MG CAPSULE PO (12:08)
[2024-10-19] MEDS: DILTIAZEM 30 MG TABLET PO (12:09)
[2024-10-19] MEDS: ASCORBIC ACID 250 MG TABLET 500 MG PO (12:09)
[2024-10-19] MEDS: MULTIVITAMINS TABLET 1 TAB PO (12:09)
--- NOTE | 2024-10-19 13:31 | ESDS_ITS ---
<Statement entered by Mandi Schumacher MD - 11/03/24 15:04> I reviewed above note and agree with findings and plans. I have also personally examined the patient with medicine team and went over assessment and plan with medical team including rn international and resident physician. Planned Discharge Date 10/19/24 DS: Providers Provider Date of admission: 10/16/24 20:19 Primary care physician: Stephanie Summers MD Admitting Provider: Geoff Gallego MD Attending Provider on Admission: Geoff Gallego MD Consults: 10/16/24 19:41 Consult to Gastroenterology Stat Comment: Consulting Provider: Nadia Claros 10/16/24 20:24 Referral Wound Care Stat Comment: Stage 4 pressure ulcer thoracic spine 10/16/24 23:39 Health Equity Referral - Knowledge Deficit Routine Comment: Positive screening for knowledge deficit needs. Attending Provider on DC: Mandi Schumacher MD Discharging Provider: Mandi Schumacher MD DS: Diagnosis Problem List Completed Was Problem List Reviewed/Reconciled?: Yes Hospital Course Hospital Course Hospital course: Summary: Agustin Schrader is a 64M with pmhx significant for CVA with residual deficit, wheelchair-bound, A-fib on Eliquis, coronary artery disease with multiple stents on Plavix, hx of gastric ulcer with bleed, and thoracic spine wound secondary to debridement for significant skin infection presented to [facility] ED on 10/16 with fever and chills and vomiting, admitted for GI bleed and UTI. On admission hemoglobin was 6.3 and patient was transfused with 3 units of PRBCs. Repeat H&H nad daily labs showed Hgb to be stable. GI was consulted patient underwent endoscopy showing esophageal ulcers oozing blood, gastroesophageal junction polyps that were resected with bleeding at the polypectomy site cauterized and gastritis. Eliquis and Plavix were started the following day per GI, the patient's H&H was monitored and remained stable. On Admission patient was also found to have urinary tract infection for which he was started on IV antibiotics. Patient was also found to have elevated liver enzymes, likely secondary to high home atorvastatin dose. Pt has a history of stage IV decubitus ulcer in the mid-thoracic region for which has has received IV antibiotics through PICC line for 6 weeks. Currently, the ulcer appears to be stable and non-infected. Wound care was ordered during hospitalization. On discharge patient is hemodynamically stable, his vitals and labs reviewed and stable, and patient is feeling ready to go home. Pt is discharged home with home health. Imaging: Liver ultrasound showed fatty infiltration with irregular contour no focal liver lesions and normal common bile duct. Discharge Recommendations: - Please take all medications as prescribed -You have been prescribed antibiotics for additional 4 days twice a day please complete the course - While you are taking antibiotics reduce Protonix to once a day - When antibiotics are completed, resume atorvastatin 40 mg twice daily - Increase Eliquis from 2.5 mg to 5 mg twice daily - You are taking blood thinners, which can cause bleeding so please be careful with falls, if you have an injury or fall please immediately go to the ED - Continue rest of medications as previously prescribed - Please follow up with your PCP within one week of discharge - Please follow up with your processes chemical design engineer within 1-2 weeks of discharge - If your symptoms worsen, please seek immediate medical attention and return to your nearest emergency room. - If you do not have a PCP, you may follow up at the [facility] at [address] [place] [address] [address] [id number], Hospital Diagnoses: #Upper GIB #Acute symptomatic anemia #Atrial fibrillation, persistent rate controlled, on Eliquis #CAD with stents on Plavix #CVA with residual deficits #Acute Transaminitis #MAFLD #UTI #Stage IV pressure ulcer, lower thoracic #CKDIIIb Yohana Torres, DO Internal Medicine, PGY-1 Status at Discharge Cognitive/behavioral status at discharge: Stable Functional status at discharge: wheelchair bound Overall status at discharge: patient is back to baseline Time Spent with Patient Time attestation: Total time spent providing and/or coordinating discharge services: Time spent: Greater than 30 minutes Exam Vital Signs Temp Pulse Resp BP Pulse Ox O2 Del Method O2 Flow Rate 97.7 F 70 16 152/80 H 99 Room Air 3 10/19/24 08:00 10/19/24 12:09 10/19/24 08:00 10/19/24 12:09 10/19/24 08:00 10/19/24 04:00 10/17/24 19:43 Narrative Exam GENERAL: AOx3, no acute distress, conversant HEENT: NC/AT, mucous membranes moist, bilateral sclera anicteric, +diminished b/l hearing CARDIOVASCULAR: regular rate and irregular rhythm, S1/S2 present, no murmurs appreciated PULMONARY: clear to auscultation bilaterally, no rales/rhonchi/wheezes ABDOMINAL: soft, non-tender, non-distended, no rebound/guarding, bowel sounds present EXTREMITIES: no peripheral edema BLE 1/5 strength SKIN: +stage IV pressure ulcer at lower thoracic region with serosanguineous drainage non erythematous. NEURO: CN II-XII grossly intact, no focal deficits, alert, following commands Discharge Plan Plan Patient Disposition: Home w/HOME HEALTH Patient condition on transfer: Stable Care Plan Goals: -Follow up with PCP within 1 week of discharge, if you do not have a primary care physician you can come see us at the [facility] by calling [phone] -You have been prescribed antibiotics for additional 4 days twice a day please complete the course -You are taking blood thinners, which can cause bleeding so please be careful with falls, if you have an injury or fall please immediately go to the ED -Continue rest of medications as previously prescribed -Return to the ED or call EMS if symptoms return and/or worsen Prescriptions/Referrals Prescriptions/Med Rec: New pantoprazole 40 mg Tablet,Delayed Release (Dr/Ec) 40 mg PO BID Qty: 30 0RF mupirocin 2 % Ointment 1 applic top TID 14 Days Qty: 1 0RF atorvastatin 40 mg tablet 40 mg PO QDAY Qty: 30 0RF cefpodoxime 100 mg tablet 100 mg PO BID 4 Days Qty: 8 0RF Rx Instructions: must administer with a meal/food Eliquis 5 mg tablet 5 mg PO BID Qty: 30 0RF Continued isosorbide mononitrate 30 mg Tablet Extended Release 24 Hr 30 mg PO QDAY clopidogrel 75 mg Tablet 75 mg PO QDAY metoprolol tartrate 25 mg Tablet 25 mg PO BID diltiazem HCl 60 mg capsule,extended release 12 hr 60 mg PO BID Discontinued pantoprazole 40 mg tablet,delayed release (DR/EC) 40 mg PO QDAY atorvastatin 80 mg Tablet 80 mg PO QPM famotidine 20 mg tablet 20 mg PO .bed Patient Comments: TAKE 1 TABLET BY MOUTH EVERY DAY AT BEDTIME NEEDED FOR 30 DAYS Eliquis 2.5 mg tablet 2.5 mg PO BID Referrals: Kristopher,Nirupama, MD [Primary Care Provider] - Patient/Caregiver Discharge Instructions Discharge Activity: activity as tolerated Other Discharge Activity Instructions:: Follow up with PCP within 1 week of discharge, if you do not have a primary care physician you can come see us at the [facility] by calling [phone] -You have been prescribed antibiotics for additional 4 days twice a day please complete the course -You are taking blood thinners, which can cause bleeding so please be careful with falls, if you have an injury or fall please immediately go to the ED -Continue rest of medications as previously prescribed -Return to the ED or call EMS if symptoms return and/or worsen Print Language: Bhutanese Stand Alone Forms: [employer] Info., Patient Portal Info Letter Discharge Order Discharge Orders: Discharge (Routine); Ordered 10/19/24 Ordered By: Elyse Centeno Quality Discharge Quality Measures VTE prophylaxis
--- NOTE | 2024-10-19 14:29 | PC.SS ---
SS attempted to setup gurney transportation with Rhys from [facility] but was unsuccessful. Per Rhys, she was unable to find member in their system and they are not the transportation vendor. SS has sent [employer], patient's facesheet, and ambulance form to [facility]. Transportation has been setup for 5pm. is aware and requested transport time later in the day.
--- NOTE | 2024-10-19 14:32 | PC.SS ---
Willow MUNOZ is aware of transportation time and bedside nurseMelinda.
--- NOTE | 2024-10-19 15:01 | PC.CC ---
HH referral sent to [facility] for CHRISTI, CHRISTI pending
--- NOTE | 2024-10-19 21:52 | PD.IMPROG ---
Documentation for date of: 10/19/24 Subjective Subjective Interval history: Late entry for the note Case discussed with the internal medicine team Biopsies still pending from the resected GE junction polyp Hemoglobin hematocrit 9.7 and 30.7 Exam Vital Signs Temp Pulse Resp BP Pulse Ox O2 Del Method O2 Flow Rate 97.4 F 85 17 140/82 H 98 Room Air 3 10/19/24 16:00 10/19/24 16:00 10/19/24 16:00 10/19/24 17:20 10/19/24 16:00 10/19/24 16:00 10/17/24 19:43 Objective Labs 10/19/24 04:37 10/19/24 04:37 Labs: Laboratory Results - last 24 hr 10/19/24 04:37 WBC 5.6 RBC 3.59 L Hgb 9.7 L Hct 30.7 L MCV 86 MCH 27.0 MCHC 31.6 RDW Std Deviation 52.3 H Plt Count 226 Neut % (Auto) 77 Lymph % (Auto) 11 [place] % (Auto) 9 Eos % (Auto) 3 Baso % (Auto) 0 Neut # (Auto) 4.3 Lymph # (Auto) 0.6 L [place] # (Auto) 0.5 Eos # (Auto) 0.2 Baso # (Auto) 0.0 Immature Gran # (Auto) 0.04 H Absolute Nucleated RBC 0.00 Immature Gran % 1 H Nucleated RBC % 0 Sodium 138 Potassium 4.2 Chloride 106 Carbon Dioxide 22.6 Anion Gap 9 BUN 23 Creatinine 1.5 H Estim Creat Clear Calc 58.2 L eGFR 52 L BUN/Creatinine Ratio 15 Glucose 130 H Calculated Osmolality 281 Calcium 8.8 Corrected Calcium 9.4 Phosphorus 2.7 Magnesium 2.3 Total Bilirubin 0.2 L AST 65 H ALT 65 H Alkaline Phosphatase 141 H Total Protein 5.7 Albumin 3.2 L Globulin 2.5 Albumin/Globulin Ratio 1.3 Impressions Impression: GE junction polyp/mass endoscopic resected pathology pending Distal esophageal ulcers Okay to discharge on omeprazole 40 mL once a day Can follow-up with the PCP Assessment & Plan A&P Narrative # Acute posthemorrhagic anemia # FOBT positive Plan Agree with blood transfusion IV Protonix drip N.p.o. midnight tonight for upper endoscopy tomorrow morning consent obtained for fiberoptic esophagogastroduodenoscopy with possible biopsy possible therapeutic intervention under intravenous moderate sedation Other medical problems include atrial fibrillation on Eliquis Coronary artery status post PTCA on Plavix Back infection requiring surgical intervention CVA Wheelchair-bound Thank you very much for the opportunity to participate in the care of this patient Time Spent With Patient Time: Total time spent is greater than 50% in coordination of care (as documented) at patient's floor/unit and/or counseling patient:
--- NOTE | 2024-10-20 07:44 | PC.CC ---
Resume of care date with Angela is 10/20/24.
== END 2024-10-19 17:32 | disposition home health service (06) | DRG 380 ==
LOC: SERX 18:29 → SERHOLD 20:52 → S2NX 22:26
PROVIDERS: Registered Nurse General Practice; Specialist; Admitting Provider Internal Medicine; Emergency Provider Family Medicine; PCP Internal Medicine; Visit Provider Internal Medicine
PROC: 0DB48ZX Excision of Esophagogastric Junction, Via Natural or Artificial Opening Endoscopic, Diagnostic (ICD-10-PCS; CPT 43239; principal; 2024-10-17 15:00)
DX: K22.11 Ulcer of esophagus with bleeding (principal); L89.104 Pressure ulcer of unspecified part of back, stage 4; G82.20 Paraplegia, unspecified; D62 Acute posthemorrhagic anemia; N39.0 Urinary tract infection, site not specified; I48.19 Other persistent atrial fibrillation; T81.31XA Disruption of external operation (surgical) wound, not elsewhere classified, initial encounter; Z99.3 Dependence on wheelchair; I48.91 Unspecified atrial fibrillation; Z95.5 Presence of coronary angioplasty implant and graft; I25.10 Atherosclerotic heart disease of native coronary artery without angina pectoris; K29.71 Gastritis, unspecified, with bleeding; K76.0 Fatty (change of) liver, not elsewhere classified; N18.32 Chronic kidney disease, stage 3b; Z79.01 Long term (current) use of anticoagulants; Z79.02 Long term (current) use of antithrombotics/antiplatelets; Z79.899 Other long term (current) drug therapy; Z88.2 Allergy status to sulfonamides; Z88.5 Allergy status to narcotic agent; Z88.0 Allergy status to penicillin; I69.30 Unspecified sequelae of cerebral infarction
CPT/HCPCS: 36415; 36430; 76705; 80053; 80061; 80069; 81001; 82010; 83605; 83615; 83690; 83735; 83880; 84100; 84145; 84443; 84484; 85025; 85610; 85730; 86850; 86900; 86901; 86923; 87040; 87077; 87081; 87086; 87186; 87811; 93005; 96365; 96366; 96375; 99284; A4649; J0131; J0696; J0744; J1200; J2250; J2405; J2470; J3010; J3475; J3490; J7120; P9016; A9270

== ENCOUNTER 2024-12-15 13:24 | Inpatient (IN) | payer MEDICARE, MEDICAID, SELFPAY ==
[2024-12-15] VITALS (19 sets, daily range): BP systolic 103–142; BP diastolic 53–95; PULSE 77–172; RESP 12–97; TEMP 36.4–38.6; O2SAT 96–100
--- NOTE | 2024-12-15 | XR_ITS ---
Examination: MRI lumbar spine without contrast Date and time of exam: December 15, 2024, 1811 hours INDICATIONS: Infection in the lower back with redness swelling and pain this week Technique: Multiple MRI axial and sagittal sections lumbar spine. Sagittal T2-weighted images, TR 3500, TE 118 T1 weighted transverse sections, TR 688 T8.5, T2-weighted sagittal sections T1 weighted sagittal sections TR 621, TE 30 T2 axial sections, TR 4, 190, TE 84. Findings: Soft tissue infection posterior to T12-L4 Ill-defined large soft tissue mass posterior to T12-L3 Bone destruction involving posterior spinous process T12, posterior spinous process L1 including lamina and superior endplate L1 and posterior spinous process lamina L2 Pathologic compression L1 vertebral body at least 40% There are no contrast images Definite extradural epidural abscess is not depicted however this is a noncontrast study IMPRESSION: Soft tissue infection posterior to T12-L4 Osteomyelitis T12, L1, L2 Drainable fluid filled soft tissue abscess is not depicted No epidural abscess
--- NOTE | 2024-12-15 13:31 | EKG_ITS ---
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
--- NOTE | 2024-12-15 13:31 | XR_ITS ---
EXAMINATION: AP chest single view TECHNIQUE: AP portable semiupright chest single view Date and time: December 15, 2024, 1446 hours, comparison 11/19/2024 INDICATIONS: Sepsis alert FINDINGS: Reduced inspiratory effort Normal heart size No lobar pneumonia or pulmonary edema Minor atelectasis left base IMPRESSION: No lobar pneumonia or pulmonary edema
--- NOTE | 2024-12-15 13:46 | PD.EDFEVER ---
ED Fever RME/HPI General Chief Complaint: Fever Stated Complaint: FEVER Time Seen by Provider: 12/15/24 13:35 Arrival date/time: 12/15/24 13:24 RME / HPI RME / HPI Narrative: 64 y/o M with past medical history for CVA , wheelchair-bound, chronic A-fib, coronary artery disease with multiple stents, gastric ulcer with bleed, chronic thoracic spine wound /upper back wound was brought in from home regarding fever. According to the patient has been having confusion since last night, comes and goes severity mild. Today patient went to wound care center, to check for the chronic wound of the back, and was noted to be febrile instead the patient was brought in for evaluation. On my initial evaluation patient was noted to be tachycardic, febrile, and shivering. Patient had a chronic wound to the Thoracic area, since June probably bedsore. She had 1 episode of debridement and since then the wound is still open. 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 Family is doing the dressing his chronic wound. Sometimes seen by a home health nurse once a week. Sepsis alert was initiated right away. Related Data Home Medications ?Medication ?Instructions ?Recorded ?Confirmed clopidogrel 75 mg tablet 75 mg PO QDAY 10/20/23 10/17/24 isosorbide mononitrate 30 mg 30 mg PO QDAY 10/20/23 10/17/24 tablet,extended release 24 hr metoprolol tartrate 25 mg tablet 25 mg PO BID 10/20/23 10/17/24 diltiazem HCl 60 mg 60 mg PO BID 07/18/24 10/17/24 capsule,extended release 12 hr Previous Rx's ?Medication ?Instructions ?Recorded apixaban 5 mg tablet (Eliquis) 5 mg PO BID #30 tabs 10/19/24 atorvastatin 40 mg tablet 40 mg PO QDAY #30 tabs 10/19/24 pantoprazole 40 mg tablet,delayed 40 mg PO BID #30 tabs 10/19/24 release Allergies Allergy/AdvReac Type Severity Reaction Status Date / Time bee pollen Allergy Severe Anaphylaxis Verified 12/15/24 13:39 Sulfa (Sulfonamide Allergy Intermediate Swelling Verified 12/15/24 13:39 Antibiotics) of Lip/Tongue/Throat ampicillin Allergy Unknown Hives Verified 12/15/24 13:39 hydrocodone AdvReac Unknown Nausea Verified 12/15/24 13:39 COLLAGEN Allergy Intermediate Rash Uncoded 12/15/24 13:39 Review of Systems Review of Systems Narrative Review of Systems: Review of system reviewed and within normal limits except mentioned in HPI Physical Exam Narrative Physical exam: VITAL SIGNS: Reviewed. GENERAL APPEARANCE: Alert and interactive, follows commands, no acute distress, febrile, shivering HEAD AND FACE: Non-traumatic. ENT: PERRL, pink conjunctivitis, eyelid no trauma, Mucous membrane moist. NECK: Supple, nontender, no nuchal rigidity. CHEST: No tenderness, no crepitus, no paradoxical movement, no retractions. LUNGS: Clear, well ventilated, symmetric, no rales, no wheezing, no ronchi, no stridor, good breath sounds bilaterally. HEART: Regular rate, regular rhythm, no murmur, no gallops. ABDOMEN: Soft, positive bowel sounds, nondistended, no guarding, nontender, no rebound, no masses, RECTAL: Deferred. GENITAL: Deferred. NEUROLOGICAL: Gross motor function intact sensory function intact, Appropriate for age. MUSCULOSKELETAL: low back nontender, full range of motion. 3 x 5 cm open wound to the mid thoracic area, with no bone exposure serous fluid noted, no pus noted, no redness no surrounding EXTREMITIES: Nontender, full range of motion upper extremity, bilateral lower extremity, contracted, minimal range of motion SKIN: Color pink, dry, no rash, no lacerations, no abrasions, no contusions. LYMPHATICS: Deferred. Course Quality Measures none Orders Category Date Time Status Bedside COVID-19 Antigen Test NOW Care 12/15/24 13:55 Active COVID-19 Screening Questionnaire NOW Care 12/15/24 20:26 Active Manager Night STAT Care 12/15/24 13:31 Active Continuous Pulse Oximetry STAT Care 12/15/24 13:31 Completed Decision to Admit X1 Care 12/15/24 20:26 Active EKG (ED ONLY) *Do not use* NOW Care 12/15/24 13:31 Completed [place] [Urinary Catheter, Remove] ONCE Care 12/15/24 13:54 Active Tinoco [Urinary Catheter] QS Care 12/15/24 13:54 Active [place] to [place] Routine Care 12/15/24 13:54 Ordered In and Out Catheter X1PRN Care 12/15/24 13:31 Completed Insert IV NOW Care 12/15/24 13:31 Active MRI Screening NOW Care 12/15/24 17:11 Active MRI Screening NOW Care 12/15/24 17:30 Completed NPO STAT Care 12/15/24 13:31 Active Strict Intake and Output Routine Care 12/15/24 13:[address] thoracic spine wo con Stat Exams 12/15/24 15:23 Completed EKG (ED Only) Stat Exams 12/15/24 13:31 Draft MR lumbar spine wo con Stat Exams 12/15/24 Completed XR chest 1V SEPSIS PROTOCOL Stat Exams 12/15/24 13:31 Completed Ammonia Stat Lab 12/15/24 19:50 Completed B-Type Natriuretic Peptide Stat Lab 12/15/24 14:21 Completed Blood Culture (Lab) Stat Lab 12/15/24 14:00 Received CBC Stat Lab 12/15/24 14:00 Completed Comprehensive Metabolic Panel Stat Lab 12/15/24 14:00 Completed Influenza A & B Rapid Panel Stat Lab 12/15/24 17:10 Completed LDH (Lactate Dehydrogenase) Stat Lab 12/15/24 14:00 Completed Lactate (Lactic Acid) Stat Lab 12/15/24 14:00 Completed Lactic Acid [Lactate (Lactic Acid)] Stat Lab 12/15/24 18:01 Completed Lipase Stat Lab 12/15/24 14:00 Completed Magnesium Stat Lab 12/15/24 14:00 Completed Partial Thromboplastin Time Stat Lab 12/15/24 14:21 Completed Phosphorous Stat Lab 12/15/24 14:00 Completed Procalcitonin Stat Lab 12/15/24 14:00 Completed Prothrombin Time with INR Stat Lab 12/15/24 14:21 Completed Troponin I Stat Lab 12/15/24 14:00 Completed Urinalysis, C/S if Indicated Stat Lab 12/15/24 14:51 Completed Urine Culture Stat Lab 12/15/24 14:51 Received Acetaminophen Ivpb [Ofirmev Inj] Med 12/15/24 13:44 Discontinued 1,000 mg in 100 ml IV X1 Acetaminophen Tab [Tylenol ES Tab] Med 12/15/24 13:32 Discontinued 1,000 mg PO X1 ONE Famotidine Inj [Pepcid Inj] Med 12/15/24 13:54 Discontinued 20 mg IVP X1 ONE Ibuprofen Tab [Motrin Tab] Med 12/15/24 13:54 Discontinued 800 mg PO X1 ONE Piper/Tazo 3.375 gm Premix [Zosyn] Med 12/15/24 13:44 Discontinued 3.375 gm in 50 ml IV X1 Ringers Lactated 1000 ml [Lactated Ringers] 1,000 ml Med 12/15/24 13:32 Discontinued IV 999 mls/hr Ringers Lactated 1000 ml [Lactated Ringers] 1,000 ml Med 12/15/24 13:54 Discontinued IV 999 mls/hr Vancomycin/Ns 1 gm Ivpb 200 ml Med 12/15/24 17:12 Discontinued IV X1 Oxygen Delivery NOW RT 12/15/24 13:31 Active Vital Signs Vital signs: Vital Signs Pulse Rate 172 H 12/15/24 13:36 Respiratory Rate 17 12/15/24 13:36 Fever MDM Narrative MDM Narrative:: 64 y/o M with past medical history for CVA , wheelchair-bound, chronic A-fib, coronary artery disease with multiple stents, gastric ulcer with bleed, chronic thoracic spine wound /upper back wound was brought in from home regarding fever. According to the patient has been having confusion since last night, comes and goes severity mild. Today patient went to wound care center, to check for the chronic wound of the back, and was noted to be febrile instead the patient was brought in for evaluation. On my initial evaluation patient was noted to be tachycardic, febrile, and shivering. Patient had a chronic wound to the Thoracic area, since June probably bedsore. She had 1 episode of debridement and since then the wound is still open. 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 Family is doing the dressing his chronic wound. Sometimes seen by a home health nurse once a week. Sepsis alert was initiated right away. EKG showed sinus tachycardia, ventricular rate of [address] segment elevation depression noted. CBC showed leukocytosis of 18.7, hemoglobin 7.4, hematocrit of 24.1 urinalysis positive for UTI patient chloride was noted to be 108, carbon dioxide of 14.9 initial lactic acid was noted to be 4.7, repeat lactic acid 1.2 x-ray of the chest came back unremarkable. Thoracic spine CT scan showed Large soft tissue infection in the posterior back only partly visualized, with osteomyelitis involving T12, L1, L2 Recommend MRI thoracic lumbar spine follow-up pre and postcontrast MRI of the lumbar spine showed Soft tissue infection posterior to T12-L4 Osteomyelitis T12, L1, L2 Drainable fluid filled soft tissue abscess is not depicted No epidural abscess Patient received 2 L of IV fluids, IV Zosyn, and IV vancomycin. Was also given Pepcid Motrin and Tylenol. Poke with Dr. Bellamy, hospitalist, who admitted the patient. Patient data External records reviewed:: None Clinical information provided by:: patient and family Social determinants that could affect healthcare access:: none Patient has the following chronic illnesses:: Chronic debility, chronic pressure ulcer thoracic spine, upper GI bleed, congestive heart failure, chronic A-fib How is presenting disease/condition affected by chronic disease/condition?: exacerbated by Evaluation data The following diagnostics were reviewed and interpreted by me:: lab results, radiology exam(s) and EKG tracing(s) Lab and/or radiology exams considered but not ordered:: None Interpretation Summary: See results MDM Medications / Prescriptions Medications or Prescriptions considered but not ordered:: None Medication administrations:: Medication Administration History Discontinued Medications Acetaminophen (Acetaminophen 500 Mg Tablet) 1,000 mg PO X1 ONE Stop: 12/15/24 13:33 Last Admin: 12/15/24 14:16 Dose: Not Given Documented By: EF Non-Admin Reason: Cancelled by Provider Famotidine (Famotidine Inj 10 Mg/Ml Vial 2 Ml) 20 mg IVP X1 ONE Stop: 12/15/24 13:55 Last Admin: 12/15/24 14:28 Dose: 20 mg Documented By: EF Lactated Ringer's (Lactated Ringers) 1,000 mls @ 999 mls/hr IV .Q1H1M ONE Stop: 12/15/24 14:32 Last Infusion: 12/15/24 16:00 Dose: Infused Documented By: Admin: 12/15/24 14:04 Dose: 999 mls/hr Documented By: EF Acetaminophen (Ofirmev Inj) 1,000 mg in 100 mls @ 250 mls/hr IV X1 ONE Stop: 12/15/24 14:07 Last Infusion: 12/15/24 14:27 Dose: Infused Documented By: Admin: 12/15/24 14:03 Dose: 250 mls/hr Documented By: EF Piperacillin/Tazobactam/Dextrose (Zosyn) 3.375 gm in 50 mls @ 100 mls/hr IV X1 ONE; Protocol Stop: 12/15/24 14:13 Last Infusion: 12/15/24 15:00 Dose: Infused Documented By: Admin: 12/15/24 14:29 Dose: 100 mls/hr Documented By: EF Lactated Ringer's (Lactated Ringers) 1,000 mls @ 999 mls/hr IV .Q1H1M ONE Stop: 12/15/24 14:54 Last Infusion: 12/15/24 16:00 Dose: Infused Documented By: Admin: 12/15/24 14:29 Dose: 999 mls/hr Documented By: EF Vancomycin/Sodium Chloride (Vancomycin/Ns 1 Gm Ivpb) 200 mls @ 120 mls/hr IV X1 ONE Stop: 12/15/24 18:51 Last Infusion: 12/15/24 20:24 Dose: Infused Documented By: Admin: 12/15/24 17:30 Dose: 120 mls/hr Documented By: EF Ibuprofen (Ibuprofen Tab 400 Mg Tablet) 800 mg PO X1 ONE Stop: 12/15/24 13:55 Last Admin: 12/15/24 14:28 Dose: 800 mg Documented By: EF See MDM Consultations Consultation(s) initiated? (list below): No Diagnosis Fever Differential Diagnosis: fever of unknown origin, pyelonephritis and sepsis Most likely diagnosis given after review of the tests above:: Sepsis, UTI, chronic wound thoracic spine chronic osteomyelitis lumbar spine Admission Indicated Admission indicated?: indicated Admission Request Was there a request for admission?: Yes Admission Attestation Admission request attestation: Discussed case with [Dr. Bellamy] from Hospitalist service regarding admission. Discussed patients ED course, exam findings, labs, and radiology results. The Hospitalist [agrees,] to accept the patient for admission. Disposition Plan Disposition Plan: Admit Discharge Plan Plan Patient Disposition: Admit Acute Care w/in Hospital Problem List Clinical Impression: Sepsis, UTI (urinary tract infection), Chronic osteomyelitis of lumbar spine, Open back wound
[2024-12-15] MEDS: ACETAMINOPHEN IVPB 1,000 MG/100 ML VIAL 250 MG IV (14:03)
[2024-12-15] MEDS: RINGERS LACTATED 1000 ML 1,000 ML 999 ML IV ×2 (14:04→14:29)
[2024-12-15] MEDS: IBUPROFEN TAB 400 MG TABLET 800 MG PO (14:28)
[2024-12-15] MEDS: FAMOTIDINE INJ 10 MG/ML VIAL 2 ML 20 MG IVP (14:28)
[2024-12-15] MEDS: PIPER/TAZO 3.375 GM PREMIX 3.375 GM/50 ML BAG IV (14:29)
[2024-12-15 14:37] LABS: Lactate (Lactic Acid) 4.7 mMol/L (0.4-2.0)
[2024-12-15 14:46] LABS: Basophils # (Auto) 0.0 Thou/mm3 (0.0-0.2); Basophils % (Auto) 0 % (0-2.5); Eosinophils # (Auto) 0.2 Thou/mm3 (0.0-0.5); Eosinophils % (Auto) 1 % (0-10); Hematocrit 24.1 % (41.0-53.0); Immature Granulocytes Auto 0.16 Thou/mm3 (0.00-0.00); Lymphocytes # (Auto) 0.4 Thou/mm3 (1.0-4.8); Lymphocytes % (Auto) 2 % (10-50); Mean Corpuscular HGB Conc 30.7 g/dl (31.0-37.0); Mean Corpuscular Hemoglobin 27.0 pg (25.0-35.0); Mean Corpuscular Volume 88 fL (80-100); Monocytes # (Auto) 0.5 Thou/mm3 (0.0-0.8); Monocytes % (Auto) 3 % (0-12); Neutrophils # (Auto) 17.5 Thou/mm3 (1.8-7.7); Neutrophils % (Auto) 93 % (37-80); Nucleated Red Blood Cell # 0.00 Thou/mm3 (0.00-0.00); Nucleated Red Blood Cell % 0 /100 WBC (0); Platelet Count 592 Thou/mm3 (140-440); RDW Standard Deviation 63.7 fL (35.1-43.9); Red Blood Count 2.74 Miln/mm3 (4.50-5.90); White Blood Count 18.7 Thou/mm3 (3.8-10.6)
[2024-12-15 14:56] LABS: Collection Type, Urine Catheter
[2024-12-15 15:02] LABS: Alanine Aminotransferase 23 U/L (10-49); Albumin, Serum 3.4 gm/dL (3.4-4.8); Albumin/Globulin Ratio 0.9 (1.2-2.2); Alkaline Phosphatase 129 U/L (46-116); Anion Gap 16 (7-16); Aspartate Amino Transferase 29 U/L (0-34); BUN/Creatinine Ratio 16 Ratio (12-20); Bilirubin,Total 0.5 mg/dL (0.3-1.2); Blood Urea Nitrogen 31 mg/dL (9-23); Calcium 8.9 mg/dL (8.3-10.6); Calcium (Corrected) 9.4 mg/dL (8.5-10.1); Chloride 108 mMol/L (98-107); Creatinine (Component) 2.0 mg/dL (0.6-1.3); Globulin 3.8 gm/dL (2.3-3.5); Glucose 110 mg/dL (74-106); LDH (Lactate Dehydrogenase) 223 U/L (120-246); Lipase 24 U/L (12-53); Magnesium 1.6 mg/dL (1.6-2.6); Osmolality,Calculated 285 (275-295); Phosphorous 3.9 mg/dL (2.4-5.1); Potassium 4.2 mMol/L (3.4-5.1); Procalcitonin 0.23 ng/ml (0.0-0.49); Sodium 139 mMol/L (136-145); Total Protein 7.2 gm/dL (5.7-8.2); Troponin I 0.039 ng/mL (0.0-0.045); eGFR 37 See Note
[2024-12-15 15:14] LABS: Bacteria,Urine 3+; Bilirubin,Urine Negative (Negative); Blood,Urine 3+ (Negative); Color,Urine Yellow (Lt Yel-Yel); Glucose, Urine Negative (Negative); Ketones,Urine Trace (Negative); Leukocyte Esterase,Urine Positive (Negative); Nitrite,Urine Negative (Negative); PH,Urine 5.5 (5.0-7.0); Protein,Urine 1+ (Neg - Trace); RBC,Urine 7 /hpf (0-3); Specific Gravity,Urine 1.013 (1.001-1.035); Squamous Epithelial Cell,Urine 3 /hpf (0-5); Urobilinogen,Urine Negative mg/dL (0.0-1.0); WBC,Urine 11 /hpf (0-5)
[2024-12-15 15:15] LABS: Carbon Dioxide 14.9 mMol/L (20.0-31.0)
[2024-12-15 15:18] LABS: Clarity,Urine Hazy (Clear/Hazy); Culture Indicated,Urine Yes
--- NOTE | 2024-12-15 15:23 | XR_ITS ---
Examination: CT thoracic spine, without contrast. 2-D sagittal reconstructions. 2-D coronal reconstructions. 3-D reconstructions. Date and time of exam: December 15, 2024, 1555 hours INDICATIONS: Healing wound in the lower thoracic lumbar spine months CTDI: vol (mGy): 44.4 DLP: (mGycm): 1775 Technique: Multiple 1.25 mm axial sections of the thoracic spine have been obtained. 2-D sagittal and coronal reconstructions have been obtained. 3-D reconstructions have been obtained. Low dose protocols were performed. One or more of the following dose reduction techniques were used; automated exposure control, adjustment of the mA and/or KV according to patient size, use of iterative reconstruction technique. Findings: Mild pleural fluid Soft tissue inspection posterior lower back with air in the soft tissue, extensive infection and cortical bone destruction involving the posterior spinous process T12, posterior spinous process and lamina as well as superior endplate L1 pedicles posterior spinous process lamina L2 Pathologic compression superior endplate L1 at least 40% IMPRESSION: Large soft tissue infection in the posterior back only partly visualized, with osteomyelitis involving T12, L1, L2 Recommend MRI thoracic lumbar spine follow-up pre and postcontrast
[2024-12-15 15:27] LABS: Hemoglobin 7.4 g/dL (13.5-16.0)
[2024-12-15 15:48] LABS: INR 1.7 (0.9-1.3); Partial Thromboplastin Time 35.2 Seconds (22.0-36.0); Prothrombin Time 17.6 Seconds (9.0-12.2)
[2024-12-15 16:28] LABS: B-Type Natriuretic Peptide 383 pg/mL (0-100)
[2024-12-15 17:27] LABS: Reflex Lactate? Y
[2024-12-15] MEDS: VANCOMYCIN/NS 1 GM IVPB 200 ML IV (17:30)
[2024-12-15 18:01] LABS: Influenza A Ag Negative; Influenza B Ag Negative
[2024-12-15 18:07] LABS: Lactate (Lactic Acid) 1.2 mMol/L (0.4-2.0)
[2024-12-15 20:20] LABS: Ammonia < 10 uMol/L (11-32)
--- NOTE | 2024-12-15 20:26 | PC.NURSE ---
pt appears in no distress. seems very tiered, is sluggish. slow to react.. pts is at bedside. still awaiting test results.
--- NOTE | 2024-12-15 20:55 | ESHP_ITS ---
<Statement entered by David Wahl MD - 12/16/24 02:54> Patient was seen and examined at bedside. I agree on the assessment and plan on this note as documented by resident Raiza Rankin PGY1. 64-year-old male with past medical history of atrial fibrillation on Eliquis, CAD with multiple stents on Plavix, history of upper GI bleed, chronic osteomyelitis thoracic spine with wound, wheelchair-bound and history of CVA who presented to [facility] ED on 12/15/2024 with a chief complaint of low-grade fever. Patient was seen at wound care clinic earlier today who recommended further evaluation, patient seems confused compared to baseline, A&O x 2. Patient has history of thoracic spine osteomyelitis for which patient underwent surgery in [place]. In ED further evaluation revealed pertinent findings of urinary tract infection, lumbar spine MRI shows osteomyelitis T12 L1-L2 and soft tissue infection posterior to T12-L4, also right base pneumonia with pleural effusion noted. Patient meets SIRS criteria 3/4, acute encephalopathy and ARIA inconsistency with sepsis. #Sepsis 2/2 UTI, chronic osteomyelitis, soft tissue infection/ulcer #Acute encephalopathy #Lactic acidosis, metabolic acidosis with compensated respiratory alkalosis Patient was given 2 L LR bolus in ED, will give additional 1 L LR maintenance, IV cefepime and vancomycin, Sodium bicarb 50 cc x 1 Neurochecks every 4 hour, nurse swallow screen, follow cultures, ESR CRP in a.m. Consult wound care #ARIA on CKD stage IIIb Suspicion of prerenal, follow renal panel in a.m. after IV fluids #Normocytic normochromic anemia Multifactorial etiology, history of GI bleed/ulcers, follow CBC in a.m., type and screen ordered for a.m., further anemia workup and FOBT ordered. #A-fib RVR, rate controlled #History of CAD Resumed home dose Eliquis, currently rate controlled blood pressure was soft will resume other medications in a.m. Will keep potassium more than 4, magnesium more than 2 #Imaging finding of liver cirrhosis, elevated INR Follow INR daily, monitor platelet count and other signs of synthetic liver dysfunction Case discussed with attending Dr. Mia Wahl MD PGY-2 Documentation for date of: 12/15/24 HPI History of Present Illness History of present illness: Agustin Schrader is a 64-yea dayr-old past medical history of hypertension, atrial fibrillation, coronary artery disease with stent placement, and a stroke in May 2023 after being taken off of Eliquis for a bleeding stomach ulcer, who presents from a wound care center for evaluation of low grade fever. He was previously hospitalized in June 2024 for nonhealing pressure ulcer on his back with purulent drainage, patient was transferred to [place] where his abscess was drained and restitched through, then taken to rehab center where he recovered for 90 days, and came back in October. Patient was taken to wound care center earlier in the day when he was noted to have low-grade fevers and recommended to be taken to the ED by ambulance directly. per , patient had been feeling cold and shivering. Patient cannot ambulate and is bedbound. also points out that urine has been darker recently. Patient has lost appetite recently and been eating soup and liquids primarily. ED course: VSS at arrival BP 115/95, HR 172, RR 17, T 101.5, O2 100% on RA. Labs showed WBC 18.7, Hgb 7.4, ABG pH 7.41, pCO2 30, pO2 112, HCO3 19. LA 4.7, trended down to 1.2, after 2 L of LR. Pt also received Zosyn 3.375g x1 and vancomycin 1g. ? CT T-spine showed large soft tissue infection in the posterior back, with osteomyelitis involving T12-L1 and L2 ? MRI lumbar spine showed soft tissue infection posterior to T12-L4, as well as osteomyelitis T12, L1, L2. No epidural abscess ? CXR showed no lobar pneumonia or pulmonary edema ? CTAP showed right base pneumonia with small Rt pleural effusion, and significant b/l renal scar formation. Allergies: Ampicillin, sulfa drugs, hydrocodone, bee stings, collagen Medications: Atorvastatin, diltiazem, Eliquis, metoprolol tartrate, isosorbide mononitrate PMH: CVA, A-fib, CAD with stents, gastric ulcer with bleed PSH: Debridement of skin infection thoracic spinal area. Amputated right third digit. cerebral thrombectomy. SHx: Denies alcohol, tobacco, illicit drug use. Exam Vital Signs Temp Pulse Resp BP Pulse Ox O2 Del Method 98.1 F 83 16 141/79 H 100 Room Air 12/15/24 19:04 12/15/24 19:04 12/15/24 19:04 12/15/24 19:04 12/15/24 19:04 12/15/24 19:04 Narrative Exam General: Alert and oriented x2, No apparent distress. Skin: Intact, Warm, no rashes. +stage IV pressure ulcer at lower thoracic region, non purulent and non erythematous. HEENT: Normocephalic, Atraumatic. Normal neck range of motion, Supple. Trachea midline. Severe Hearing loss b/l. Respiratory: Lungs are clear to auscultation, Breath sounds are equal bilaterally with equal chest expansion. Cardiovascular: irregular rhythm, normal S1, S2, No murmurs. Distal pulses 2+. Abdomen: Abdomen non-distended, without erythema, or lesions. Normotensive bowel sounds x4. Percussion tympanic. Palpation soft, nontender in all four quadrants. No organomagely. Absent rigidity, guarding, or rebound. Musculoskeletal/Extremities: No erythema, swelling, tenderness of any joints. No edema of BLE. DP pulses +2/3 b/l. Patient cannot move his b/l extremities but can sense gross touch L3-S1 dermatomes b/l. Neurologic: CN II-XII grossly intact, no focal deficits, alert, following commands Psych: Thoughts linear and responses appropriate. Results: Labs 12/16/24 05:35 12/16/24 05:35 Labs: Short CBC 12/15/24 Range/Units 14:00 WBC 18.7 H (3.8-10.6) Thou/mm3 Hgb 7.4 L (13.5-16.0) g/dL Hct 24.1 L (41.0-53.0) % Plt Count 592 H (140-440) Thou/mm3 BMP 12/15/24 14:00 Sodium 139 Potassium 4.2 Chloride 108 H Carbon Dioxide 14.9 L* BUN 31 H Creatinine 2.0 H Glucose 110 H Calcium 8.9 Cardiac Enzymes 12/15/24 Range/Units 14:00 Troponin I 0.039 (0.0-0.045) ng/mL Liver Function 12/15/24 Range/Units 14:00 Total Bilirubin 0.5 (0.3-1.2) mg/dL AST 29 (0-34) U/L ALT 23 (10-49) U/L Alkaline Phosphatase 129 H (46-116) U/L Albumin 3.4 (3.4-4.8) gm/dL Urine 12/15/24 Range/Units 14:51 Urine Color Yellow (Lt Yel-Yel) Urine Clarity Hazy (Clear/Hazy) Urine pH 5.5 (5.0-7.0) Ur Specific [place] 1.013 (1.001-1.035) Urine Protein 1+ A (Neg - Trace) Urine Glucose (UA) Negative (Negative) Quality Measures Quality Measures VTE prophylaxis Medications Home Medications and Allergies Home Medications ?Medication ?Instructions ?Recorded ?Confirmed ?Type clopidogrel 75 mg tablet 75 mg PO QDAY 10/20/2310/17 History isosorbide mononitrate 30 mg 30 mg PO QDAY 10/20/23 History tablet,extended release 24 hr metoprolol tartrate 25 mg tablet 25 mg PO BID 10/20/23 10/17/24 History diltiazem HCl 60 mg 60 mg PO BID 07/18/24 History capsule,extended release 12 hr Allergies Allergy/AdvReac Type Severity Reaction Status Date / Time bee pollen Allergy Severe Anaphylaxis Verified 12/15/24 13:39 Sulfa (Sulfonamide Allergy Intermediate Swelling Verified 12/15/24 13:39 Antibiotics) of Lip/Tongue/Throat ampicillin Allergy Unknown Hives Verified 12/15/24 13:39 hydrocodone AdvReac Unknown Nausea Verified 12/15/24 13:39 COLLAGEN Allergy Intermediate Rash Uncoded 12/15/24 13:39 Visit Medications Discontinued Medications Acetaminophen (Acetaminophen 500 Mg Tablet) 1,000 mg PO X1 ONE Stop: 12/15/24 13:33 Last Admin: 12/15/24 14:16 Dose: Not Given Famotidine (Famotidine Inj 10 Mg/Ml Vial 2 Ml) 20 mg IVP X1 ONE Stop: 12/15/24 13:55 Last Admin: 12/15/24 14:28 Dose: 20 mg Lactated Ringer's (Lactated Ringers) 1,000 mls @ 999 mls/hr IV .Q1H1M ONE Stop: 12/15/24 14:32 Last Infusion: 12/15/24 16:00 Dose: Infused Acetaminophen (Ofirmev Inj) 1,000 mg in 100 mls @ 250 mls/hr IV X1 ONE Stop: 12/15/24 14:07 Last Infusion: 12/15/24 14:27 Dose: Infused Piperacillin/Tazobactam/Dextrose (Zosyn) 3.375 gm in 50 mls @ 100 mls/hr IV X1 ONE; Protocol Stop: 12/15/24 14:13 Last Infusion: 12/15/24 15:00 Dose: Infused Lactated Ringer's (Lactated Ringers) 1,000 mls @ 999 mls/hr IV .Q1H1M ONE Stop: 12/15/24 14:54 Last Infusion: 12/15/24 16:00 Dose: Infused Vancomycin/Sodium Chloride (Vancomycin/Ns 1 Gm Ivpb) 200 mls @ 120 mls/hr IV X1 ONE Stop: 12/15/24 18:51 Last Infusion: 12/15/24 20:24 Dose: Infused Ibuprofen (Ibuprofen Tab 400 Mg Tablet) 800 mg PO X1 ONE Stop: 12/15/24 13:55 Last Admin: 12/15/24 14:28 Dose: 800 mg Assessment & Plan Plan Agustin Schrader is a 64-yea dayr-old past medical history of hypertension, atrial fibrillation, coronary artery disease with stent placement, and a stroke in May 2023 after being taken off of Eliquis for a bleeding stomach ulcer, who presented from a wound care center on 12/15/2024 for evaluation of low grade fever. #Sepsis #Lactic acidosis, improving #Pneumonia, less likely #osteomyelitis, chronic #Acute encephalopathy Clinical picture meets 3/4 SIRS criteria at ED presentation: T 101.5 (>100.9 or <96.8F), RR 17 (>20/min), HR 172 to (>90/min), WBC 18.7 (>12 or <4K or Bands >10%). Source of infection could be either of pneumonia, decubitus ulcer, or UTI, or osteomyelitis LA 4.7, trended down to 1.2, after 2 L of LR ABG pH 7.41, pCO2 30, pO2 112, HCO3 19 -Metabolic acidosis with compensatory respiratory alkalosis. Reportedly, patient has been feeling confused, febrile, shivering, with loss of appetite. Patient at 100 kg, will need 100 x30ml/kg of total IV fluids, short of 1 L. Pt received Zosyn 3.375g and vancomycin 1g x1 in ED. ? CT T-spine showed large soft tissue infection in the posterior back, with osteomyelitis involving T12-L1 and L2 ? MRI lumbar spine showed soft tissue infection posterior to T12-L4, as well as osteomyelitis T12, L1, L2. No epidural abscess ? CXR showed no lobar pneumonia or pulmonary edema ? CTAP showed right base pneumonia with small Rt pleural effusion, and significant b/l renal scar formation. 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 -referral wound care -Watch for signs of infection closely, that is erythema, fevers, or regional pain #Anemia, normocytic Hgb 7.4, MCV 88. Patient with hx of GI bleed/ulcers. -watch Hgb closely, transfuse if <7 -type and screen for possibly needing blood transfusion. -ordered FOBT, iron panel, and ferritin #ARIA on CKD #CKD stage [IIIb] Creatinine 2.0 elevated above baseline Cr range of [1.5-1.7] BUN 31, BUNs/CR 16, eGFR 37. ARIA likely to be prerenal in the setting of sepsis, ?follow renal panel in AM after IV fluids ?Renally dose meds, avoid overdiuresis, or nephrotoxins #Atrial fibrillation with RVR #CAD with stents #CVA with residual deficit EKG at presentation revealed atrial fibrillation with RVR Patient with history of chronic atrial fibrillation Patient apparently developed stroke after being taken off Eliquis for GI bleed. Plan: -home Eliquis p.o. 5 mg twice daily -HOLD. -Atorvastatin PO 80mg HS -Held Plavix iso low hgb 7.2 -Keep Mg >2 and K+ >4 #Liver cirrhosis vs primary hepatocelluar disease findings of liver ultrasound on 10/18/2024 MELD score 19 which suggests 6% possibility of mortality in 3mo. 12/15/2024: PT 17.6 H, INR 1.7 H, and aPTT 35.2 -Monitor synthetic liver function with INR and platelet count daily Health Maintenance: Disposition: Telemetry, treating sepsis with broad spectrum ABx and fluid Diet: NPO PPx DVT: Eliquis PO 5mg bid PPx GI: Pantoprazole IVP 40mg Qday Code Status: full This case was discussed with my attending physician, Dr. Bellamy, and senior resident, Dr Wahl. Raiza Rankin DO PGY I Attending Provider Attestation/Addendum I, Suzanna Bellamy, , attest that I was physically present for the umanzor portions of the service and evaluated the patient with the resident and I reviewed and discussed the case with the resident and agree with the resident's findings and plans of care as documented above Patient is a 64 yo male with Pmhx of CVA who is wheelchair bound, afib on eliquis, CAD, GI bleed, ?back abscess and osteomyelitis of thoracic spine involving T11-T12 s/p debridement and abx who was brought in from wound care center due to fever. Per at bedside, patient began to be more confused yesterday during which he was pulling his bedsheets off, as well as wound dressing. Patient at baseline is A&Ox2 and hard of hearing. She also states that he was noted to eat less in the past week. She states that pt?s urine is noted to be darker in colour and more pungent in smell. She also noted that the pt to have chills. Patient had previously been transferred in June of this year after he had developed a draining abscess from his thoracic spine and found to have osteomyelitis as well.? Per at bedside, patient was transferred to [place] during which patient underwent a spinal surgery with incision down his spine, complicated by dehiscence of the wound.? Since that surgery, patient has had a wound in his thoracic spine that has been requiring constant wound care.? Patient was discharged from SNF and previously had a wound VAC.? However, patient has been undergoing home health wound care since discharge.? He went to the wound care center for this first time today, but subsequently referred to ED due to fever and confusion.? states that there appears to be more drainage from wound, but does not appear to be purulent.? On exam, patient has a well granulated wound with opening of about 10 cm in length and about 8 cm in width.? Muscles are well-visualized, no purulent fluid expressed.? Tissues appear to be healthy.? However, CT scan of thoracic spine showed a large soft tissue infection and posterior back with osteomyelitis from T12, L1, L2.? MRI was also subsequently done and confirmed soft tissue infection posterior to T12-L4, as well as osteomyelitis of T12, L1, L2.? No drainable abscess was noted.? Suspect that this osteomyelitis is chronic given previous findings.? He was also noted to have 3+ bacteria in his UA.? Patient did present with a leukocytosis of 18.7, hemoglobin is 7.4 lactic acidosis of 4.7, metabolic acidosis of 14.9 and ARIA with creatinine of 2.0 with baseline creatinine of 1.3.? Patient received 2 L of IV fluids with improvement of lactic acidosis.? CT abdomen pelvis was also done showing right base pneumonia with small right pleural effusion and significant bilateral renal scar formation.? No ureteral stone or pelvic abscesses were noted.? Will obtain FOBT due to drop in hemoglobin.? Patient is also on apixaban at home.? Will follow-up with repeat H&H.? at bedside denies any blood in stool noted at home.? Will admit patient to telemetry for further workup and medical management of sepsis secondary to UTI versus soft tissue infection of the back.? Suspect UTI more so than soft tissue infection as wound appears to be healing well.? Will obtain ESR and CRP.? Patient reports pain in leg with passive movement, but gross sensation is intact in bilateral lower extremities.? Will continue with IV fluid hydration.? Will start with broad-spectrum antibiotics due to concern for UTI versus soft tissue infection.? Will have wound care follow patient.
--- NOTE | 2024-12-15 21:22 | XR_ITS ---
Examination: CT abdomen and pelvis without contrast. Coronal 3-D reconstructions. Sagittal 2-D reconstructions. Date and time of exam: December 15, 2024, 10:30 p.m. INDICATIONS: Sepsis fever today CTDI: vol (mGy): 17.11 DLP: (mGycm): 1112 Technique: Axial images of the abdomen have been obtained, 3 mm slice thickness Intravenous contrast material has not been administered. Low dose protocols were performed. One or more of the following dose reduction techniques were used; automated exposure control, adjustment of the mA and/or KV according to patient size, use of iterative reconstruction technique. Findings: Pneumonia right base with small right pleural effusion Retrocardiac gastric hernia Pneumobilia. No focal liver or splenic lesions Absent gallbladder Significant bilateral renal scarring with renal cysts Heavy abdominal aortic calcification No bowel obstruction No pericecal inflammatory change No diverticulitis Abundant stool in the rectum TURP defect Contracted urinary bladder Severe osteopenia IMPRESSION: Right base pneumonia with small right pleural effusion Significant bilateral renal scar formation No CT findings of abdominal or pelvic abscess
[2024-12-15 23:57] LABS: Allen Test Performed/OK; Base Excess -6 (-3-3); HCO3 19 mEq/L (20-26); Inspired Oxygen, FIO2 21 %; O2 Saturation 99 % (91-98); PCO2 30 mmHg (32.0-48.0); PO2 112 mmHg (83-108); Puncture Site Left Radial; pH, Arterial 7.41 (7.35-7.45)
[2024-12-16] VITALS (21 sets, daily range): BP systolic 95–169; BP diastolic 70–105; PULSE 81–126; RESP 12–100; TEMP 35.3–36.5; O2SAT 97–100
[2024-12-16] MEDS: Magnesium Sulfate 4 GM Ivpb 4 GM/50 ML BAG IV (01:26)
[2024-12-16] MEDS: RINGERS LACTATED 1000 ML 1,000 ML 75 ML IV (01:26)
--- NOTE | 2024-12-16 01:30 | PC.NURSE ---
SPOKE WITH DR. HOYOS REGARDING RECTAL TEMP OF 95.6. ORDERS FOR BARE HUGGER GIVEN. CLARIFIED ORDERS FOR DODGE CATHETER. VERIFIED THAT HE DOES WANT A DODGE CATHETER PLACED.
[2024-12-16] MEDS: Sodium Bicarb Inj 8.4% SYR 50 ML SYRINGE IV (01:37)
--- NOTE | 2024-12-16 01:45 | PC.NURSE ---
PHARMACIST CALLED TO CLARIFY ORDERS FOR CEFEPIME D/T AN ALLERGY TO AMPICILLIN (RASH). SPOKE WITH DR. HOYOS AND STATED OK TO GIVE. GET BACK TO MD IF PT DEVELOPS RASH/ITCHINESS.
[2024-12-16] MEDS: CEFEPIME INJ 2 GM in SODIUM CHLORIDE 0.9% (Popper) 50 ML IV ×4 (02:09→21:10)
[2024-12-16 05:59] LABS: Basophils # (Auto) 0.0 Thou/mm3 (0.0-0.2); Basophils % (Auto) 0 % (0-2.5); Eosinophils # (Auto) 0.2 Thou/mm3 (0.0-0.5); Eosinophils % (Auto) 2 % (0-10); Immature Granulocytes Auto 0.10 Thou/mm3 (0.00-0.00); Lymphocytes # (Auto) 0.3 Thou/mm3 (1.0-4.8); Lymphocytes % (Auto) 3 % (10-50); Mean Corpuscular HGB Conc 31.6 g/dl (31.0-37.0); Mean Corpuscular Hemoglobin 27.3 pg (25.0-35.0); Mean Corpuscular Volume 87 fL (80-100); Monocytes # (Auto) 0.2 Thou/mm3 (0.0-0.8); Monocytes % (Auto) 2 % (0-12); Neutrophils # (Auto) 10.7 Thou/mm3 (1.8-7.7); Neutrophils % (Auto) 93 % (37-80); Nucleated Red Blood Cell # 0.00 Thou/mm3 (0.00-0.00); Nucleated Red Blood Cell % 0 /100 WBC (0); Platelet Count 381 Thou/mm3 (140-440); RDW Standard Deviation 62.7 fL (35.1-43.9); Red Blood Count 2.16 Miln/mm3 (4.50-5.90); White Blood Count 11.5 Thou/mm3 (3.8-10.6)
[2024-12-16 06:02] LABS: Hematocrit 18.7 % (41.0-53.0); Hemoglobin 5.9 g/dL (13.5-16.0)
--- NOTE | 2024-12-16 06:07 | PC.NURSE ---
Dr. Rankin made aware by RN via phone of critical lab values, Hgb 5.9 and Hct 18.7. Per MD, will follow up with the type and screen of patient and will put in blood transfusion orders when available.
[2024-12-16 06:35] LABS: Alanine Aminotransferase 16 U/L (10-49); Albumin, Serum 2.7 gm/dL (3.4-4.8); Albumin/Globulin Ratio 0.9 (1.2-2.2); Alkaline Phosphatase 97 U/L (46-116); Anion Gap 13 (7-16); Aspartate Amino Transferase 23 U/L (0-34); BUN/Creatinine Ratio 15 Ratio (12-20); Bilirubin,Total 0.3 mg/dL (0.3-1.2); Blood Urea Nitrogen 30 mg/dL (9-23); Calcium 8.2 mg/dL (8.3-10.6); Calcium (Corrected) 9.2 mg/dL (8.5-10.1); Carbon Dioxide 20.2 mMol/L (20.0-31.0); Chloride 109 mMol/L (98-107); Creatinine (Component) 2.0 mg/dL (0.6-1.3); Estimated Creatinine Clearance 39.1 mL/min (>60); Globulin 2.9 gm/dL (2.3-3.5); Glucose 112 mg/dL (74-106); Magnesium 2.8 mg/dL (1.6-2.6); Osmolality,Calculated 290 (275-295); Phosphorous 4.0 mg/dL (2.4-5.1); Potassium 3.5 mMol/L (3.4-5.1); Sodium 142 mMol/L (136-145); Total Protein 5.6 gm/dL (5.7-8.2); eGFR 37 See Note
--- NOTE | 2024-12-16 09:38 | PCS.ST ---
Spoke to RN. Per Rn, pt is AMS and unable to follow directions. Will attempt bedside swallow evaluation at a later time.
--- NOTE | 2024-12-16 11:11 | ESPR_ITS ---
<Statement entered by Geoff Gallego MD - 12/17/24 12:43> I have discussed and was present for the essential components of the history, physical examination, diagnosis, and treatment plan with the resident. I agree with the patient's care as documented by the resident and amended herein by me. Geoff Gallego MD FACP. Documentation for date of: 12/16/24 Subjective Subjective Interval history: Patient seen at bedside. Patient is very hard of hearing, appears very confused. Not able to follow commands. Agitated pulling on lines and received hydroxyzine 25 mg x 1. Patient is currently on 2 antibiotics and improving white blood cell count, no fevers, blood culture and urine culture pending. Exam Vital Signs Temp Pulse Resp BP Pulse Ox O2 Del Method 96.4 F L 97 16 136/82 H 99 Room Air 12/16/24 10:30 12/16/24 10:30 12/16/24 10:12/16/24 10:12/16/24 10:12/16/24 08:00 Narrative Exam General: Alert and oriented x1, No apparent distress. Skin: Intact, Warm, no rashes. 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 HEENT: Normocephalic, Atraumatic. Normal neck range of motion, Supple. Trachea midline. Severe Hearing loss b/l. Respiratory: Lungs are clear to auscultation, Breath sounds are equal bilaterally with equal chest expansion. Cardiovascular: irregular rhythm, normal S1, S2, No murmurs. Distal pulses 2+. Abdomen: Abdomen non-distended, without erythema, or lesions. Normotensive bowel sounds x4. Percussion tympanic. Palpation soft, nontender in all four quadrants. No organomagely. Absent rigidity, guarding, or rebound. Musculoskeletal/Extremities: No erythema, swelling, tenderness of any joints. No edema of BLE. DP pulses +2/3 b/l. Patient cannot move his b/l extremities but can sense gross touch L3-S1 dermatomes b/l. Neurologic: CN II-XII grossly intact, no focal deficits, alert, following limited commands Objective Labs 12/16/24 17:41 12/16/24 05:35 Labs: Laboratory Results - last 24 hr 10/10/25 10/10/25 10/10/25 14:00 14:21 14:51 WBC 18.7 H RBC 2.74 L Hgb 7.4 L Hct 24.1 L MCV 88 MCH 27.0 MCHC 30.7 L RDW Std Deviation 63.7 H Plt Count 592 H Neut % (Auto) 93 H Lymph % (Auto) 2 L [place] % (Auto) 3 Eos % (Auto) 1 Baso % (Auto) 0 Neut # (Auto) 17.5 H Lymph # (Auto) 0.4 L [place] # (Auto) 0.5 Eos # (Auto) 0.2 Baso # (Auto) 0.0 Immature Gran # (Auto) 0.16 H Absolute Nucleated RBC 0.00 Immature Gran % 1 H Nucleated RBC % 0 PT 17.6 H INR 1.7 H APTT 35.2 Puncture Site ABG pH ABG pCO2 ABG pO2 ABG HCO3 ABG O2 Saturation ABG Base Excess FiO2 Sodium 139 Potassium 4.2 Chloride 108 H Carbon Dioxide 14.9 L* Anion Gap 16 BUN 31 H Creatinine 2.0 H Estim Creat Clear Calc Not Performed. eGFR 37 L BUN/Creatinine Ratio 16 Glucose 110 H Calculated Osmolality 285 Lactic Acid 4.7 H* Calcium 8.9 Corrected Calcium 9.4 Phosphorus 3.9 Magnesium 1.6 Total Bilirubin 0.5 AST 29 ALT 23 Alkaline Phosphatase 129 H Ammonia Lactate Dehydrogenase 223 Troponin I 0.039 B-Natriuretic Peptide 383 H Total Protein 7.2 Albumin 3.4 Globulin 3.8 H Albumin/Globulin Ratio 0.9 L Lipase 24 Procalcitonin 0.23 Ur Collection Type Catheter Urine Color Yellow Urine Clarity Hazy Urine pH 5.5 Ur Specific [place] 1.013 Urine Protein 1+ A Urine Glucose (UA) Negative Urine Ketones Trace Urine Blood 3+ A Urine Nitrite Negative Urine Bilirubin Negative Urine Urobilinogen (Auto) Negative Ur Leukocyte Esterase Positive Urine RBC 7 H Urine WBC 11 H Ur Squamous Epith Cells 3 Urine Bacteria 3+ A Ur Culture Indicated? Yes Influenza A (Rapid) Influenza B (Rapid) Blood Type Antibody Screen Crossmatch Blood Bank Wristband ID 12/15/24 12/15/24 12/15/24 17:10 18:01 19:50 WBC RBC Hgb Hct MCV MCH MCHC RDW Std Deviation Plt Count Neut % (Auto) Lymph % (Auto) [place] % (Auto) Eos % (Auto) Baso % (Auto) Neut # (Auto) Lymph # (Auto) [place] # (Auto) Eos # (Auto) Baso # (Auto) Immature Gran # (Auto) Absolute Nucleated RBC Immature Gran % Nucleated RBC % PT INR APTT Puncture Site ABG pH ABG pCO2 ABG pO2 ABG HCO3 ABG O2 Saturation ABG Base Excess FiO2 Sodium Potassium Chloride Carbon Dioxide Anion Gap BUN Creatinine Estim Creat Clear Calc eGFR BUN/Creatinine Ratio Glucose Calculated Osmolality Lactic Acid 1.2 Calcium Corrected Calcium Phosphorus Magnesium Total Bilirubin AST ALT Alkaline Phosphatase Ammonia < 10 L Lactate Dehydrogenase Troponin I B-Natriuretic Peptide Total Protein Albumin Globulin Albumin/Globulin Ratio Lipase Procalcitonin Ur Collection Type Urine Color Urine Clarity Urine pH Ur Specific [place] Urine Protein Urine Glucose (UA) Urine Ketones Urine Blood Urine Nitrite Urine Bilirubin Urine Urobilinogen (Auto) Ur Leukocyte Esterase Urine RBC Urine WBC Ur Squamous Epith Cells Urine Bacteria Ur Culture Indicated? Influenza A (Rapid) Negative Influenza B (Rapid) Negative Blood Type Antibody Screen Crossmatch Blood Bank Wristband ID 12/15/24 12/16/24 23:50 05:35 WBC 11.5 H D RBC 2.16 L Hgb 5.9 L* D Hct 18.7 L* MCV 87 MCH 27.3 MCHC 31.6 RDW Std Deviation 62.7 H Plt Count 381 D Neut % (Auto) 93 H Lymph % (Auto) 3 L [place] % (Auto) 2 Eos % (Auto) 2 Baso % (Auto) 0 Neut # (Auto) 10.7 H Lymph # (Auto) 0.3 L [place] # (Auto) 0.2 Eos # (Auto) 0.2 Baso # (Auto) 0.0 Immature Gran # (Auto) 0.10 H Absolute Nucleated RBC 0.00 Immature Gran % 1 H Nucleated RBC % 0 PT INR APTT Puncture Site Left Radial ABG pH 7.41 ABG pCO2 30 L ABG pO2 112 H ABG HCO3 19 L ABG O2 Saturation 99 H ABG Base Excess -6 L FiO2 21 Sodium 142 Potassium 3.5 D Chloride 109 H Carbon Dioxide 20.2 Anion Gap 13 BUN 30 H Creatinine 2.0 H Estim Creat Clear Calc 39.1 L eGFR 37 L BUN/Creatinine Ratio 15 Glucose 112 H Calculated Osmolality 290 Lactic Acid Calcium 8.2 L Corrected Calcium 9.2 Phosphorus 4.0 Magnesium 2.8 H Total Bilirubin 0.3 AST 23 ALT 16 Alkaline Phosphatase 97 D Ammonia Lactate Dehydrogenase Troponin I B-Natriuretic Peptide Total Protein 5.6 L Albumin 2.7 L D Globulin 2.9 Albumin/Globulin Ratio 0.9 L Lipase Procalcitonin Ur Collection Type Urine Color Urine Clarity Urine pH Ur Specific [place] Urine Protein Urine Glucose (UA) Urine Ketones Urine Blood Urine Nitrite Urine Bilirubin Urine Urobilinogen (Auto) Ur Leukocyte Esterase Urine RBC Urine WBC Ur Squamous Epith Cells Urine Bacteria Ur Culture Indicated? Influenza A (Rapid) Influenza B (Rapid) Blood Type O Positive Antibody Screen NEGATIVE Crossmatch See Detail Blood Bank Wristband ID Yes ABG Interpretation ABG results: 12/15/24 23:50 ABG pH 7.41 ABG pCO2 30 L ABG pO2 112 H ABG HCO3 19 L ABG O2 Saturation 99 H ABG Base Excess -6 L Quality Measures Quality Measures VTE prophylaxis Assessment & Plan Assessment Current Active Medications: Generic Name Dose Route Start Last Admin Trade Name Freq PRN Reason Stop Dose Admin Acetaminophen 650 mg 12/16/24 00:05 Acetaminophen 325 Mg Tablet PO 01/15/25 00:04 Q6H PRN Fever >100.4 or Pain (1-3) Atorvastatin Calcium 80 mg 12/16/24 21:00 Atorvastatin Calcium 20 Mg Tablet PO 01/15/25 20:59 HS HANNAH Lactated Ringer's 1,000 mls @ 75 mls/hr 12/16/24 00:15 12/16/24 01:26 Lactated Ringers IV 12/16/24 13:34 75 mls/hr .[id number] HANNAH Administration Cefepime HCl 2 gm/ Sodium 50 mls @ 100 mls/hr 12/16/24 00:45 12/16/24 05:22 Chloride IV 12/23/24 00:44 100 mls/hr Q8HR HANNAH Administration Potassium Chloride 10 meq in 100 mls @ 100 mls/hr 12/16/24 08:16 Kcl Ivpb IV 12/16/24 12:15 Q1H HANNAH Ondansetron HCl 4 mg 12/16/24 00:05 Ondansetron Inj 2 Mg/Ml Inj 2 Ml IVP 01/15/25 00:04 Q6H PRN NAUSEA OR VOMITING Protocol Pantoprazole Sodium 40 mg 12/16/24 09:00 Pantoprazole Inj 40 Mg Vial IVP 01/15/25 08:59 BID HANNAH Pharmacy Consult 1 each 12/16/24 09:00 Vancomycin Pharmacy To Dose 1 Each Each IV 01/15/25 08:59 QDAY PRN PROTOCOL Sennosides 1 tab 12/16/24 09:00 Senna Tablet PO 01/15/25 08:59 QDAY HANNAH Protocol Plan 64-year-old past medical history of hypertension, atrial fibrillation, coronary artery disease with stent placement, and a stroke in May 2023 after being taken off of Eliquis for a bleeding stomach ulcer, who presented from a wound care center on 12/15/2024 for evaluation of low grade fever. Patient admitted for sepsis treatment. #Sepsis, resolving #Lactic acidosis, improving #Pneumonia, less likely #osteomyelitis, chronic #Acute encephalopathy Clinical picture meets 3/4 SIRS criteria at ED presentation: T 101.5 (>100.9 or <96.8F), RR 17 (>20/min), HR 172 to (>90/min), WBC 18.7 (>12 or <4K or Bands >10%). Source of infection could be either of pneumonia, decubitus ulcer, or UTI, or osteomyelitis LA 4.7, trended down to 1.2, after 2 L of LR ABG pH 7.41, pCO2 30, pO2 112, HCO3 19 -Metabolic acidosis with compensatory respiratory alkalosis. Reportedly, patient has been feeling confused, febrile, shivering, with loss of appetite. Patient at 100 kg, will need 100 x30ml/kg of total IV fluids, short of 1 L. Pt received Zosyn 3.375g and vancomycin 1g x1 in ED. ? CT T-spine showed large soft tissue infection in the posterior back, with osteomyelitis involving T12-L1 and L2 ? MRI lumbar spine showed soft tissue infection posterior to T12-L4, as well as osteomyelitis T12, L1, L2. No epidural abscess ? CXR showed no lobar pneumonia or pulmonary edema ? CTAP showed right base pneumonia with small Rt pleural effusion, and significant b/l renal scar formation. 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 -referral wound care -Watch for signs of infection closely, that is erythema, fevers, or regional pain #Anemia, normocytic Initial presentation Hgb 7.4, MCV 88. Patient with hx of GI bleed/ulcers. Hemoglobin dropped to 5.9, 2 units packed RBC transfused 12/16, hemoglobin improved to 10.4 Iron levels low, ferritin high -watch Hgb closely, transfuse if <7 -Dr. Claros consulted, appreciate recs -Follow FOBT #ARIA on CKD #CKD stage [IIIb] Creatinine 2.0 elevated above baseline Cr range of [1.5-1.7] BUN 31, BUNs/CR 16, eGFR 37. ARIA likely to be prerenal in the setting of sepsis, ?Renally dose meds, avoid overdiuresis, or nephrotoxins #Atrial fibrillation with RVR #CAD with stents #CVA with residual deficit EKG at presentation revealed atrial fibrillation with RVR Patient with history of chronic atrial fibrillation Patient apparently developed stroke after being taken off Eliquis for GI bleed. -home Eliquis p.o. 5 mg twice daily HOLD. -Atorvastatin PO 80mg HS -Held Plavix as hemoglobin less than 7 -Keep Mg >2 and K+ >4 #Liver cirrhosis vs primary hepatocelluar disease Liver ultrasound on 10/18/2024 MELD score 19 which suggests 6% possibility of mortality in 3mo. 12/15/2024: PT 17.6 H, INR 1.7 H, and aPTT 35.2 -Monitor synthetic liver function with INR and platelet count daily Health Maintenance: Disposition: Telemetry Diet: Dysphagia to diet PPx DVT: Restart Eliquis 5 mg twice daily when hemoglobin stable and not at risk for bleed PPx GI: Pantoprazole IVP 40mg twice daily Code Status: full Case discussed with my attending Dr. Gallego, and senior resident, Dr. Celi Huff MD PGY-1
[2024-12-16 12:03] LABS: Sed Rate (ESR) 17 mm/hr (0-20)
[2024-12-16] MEDS: POTASSIUM CHL 10 mEq IVPB 10 MEQ/100 ML BAG 100 MEQ IV ×4 (12:40→16:42)
[2024-12-16] MEDS: VANCOMYCIN/NS 500 MG IVPB 100 ML 120 MG IV (12:40)
[2024-12-16 12:54] LABS: Vancomycin,Random 14.2 mcg/mL
[2024-12-16 13:49] LABS: C-Reactive Protein 20.4 mg/dL (0.0-0.9)
--- NOTE | 2024-12-16 15:49 | PC.SS ---
Addendum entered by ALBERTINA Earl 12/16/24 15:56: Rounding note: on iv antibiotics, endoscopy pending. Original Note: Patient is a 64 year old male presenting to the hospital for sepsis. CUSTOM MILLER made face to face contact with patient, bedside nurse was present. Patient was confused. CUSTOM MILLER placed phone call to patients [facility] to confirm demographic information and stated in case patient is unable to make medical decisions on his own she would be making them for him. CUSTOM MILLER explained role and reason for visit. Sheila stated that patient lives at home with herself, her sister, and her nephew. Sheila stated that patient uses electric wheelchair and is bed bound. Sheila stated they have lyft but are unsure of how to use it. Sheila stated that patient has become increasingly defiant and she feels patient would benefit from short term rehab. Sheila stated that patient is followed by [facility], his PCP is Dr. Raman last appointment was one week ago. [facility] D/c: family would like short term rehab. Decision maker: Sheila Watkins [phone] PCP: Dr. Navarro
[2024-12-16 18:15] LABS: Hematocrit 31.7 % (41.0-53.0); Hemoglobin 10.4 g/dL (13.5-16.0)
[2024-12-16] MEDS: ACETAMINOPHEN 325 MG TABLET 650 MG PO (18:25)
[2024-12-16 18:28] LABS: Iron 22 mcg/dL (65-175); Percent Iron Saturation 16 % (20-55); Total Iron Binding Capacity 130 mcg/dL (250-425); Unsaturated Iron Binding 108 (225-295)
[2024-12-16 18:31] LABS: Ferritin 653 ng/mL (10.5-307.3)
--- NOTE | 2024-12-16 19:11 | PD.IMCONS ---
HPI Data of Consult Requesting Physician: Suzanna Bellamy DO Primary Care Provider: Wilfredo Navarro MD Consult Narrative Reason for consult: H/H 5.9 /18.7 History of present illness: 64 years old male brought to the emergency room because of the fever He does have a chronic back soft tissue infection/decubitus with CT scan of the abdomen pelvis done today showed right base pneumonia right pleural effusion T12 and L1 findings consistent with osteomyelitis Patient does have a history of CVA chronic atrial fibrillation coronary artery status post PTCA on Eliquis On 05/12/2024 patient underwent upper endoscopy here in this hospital which showed multiple distal esophageal ulcers and gastritis cc:: cc: Suzanna Bellamy DO Review of Systems Review of Systems Systems Reviewed: All systems reviewed, normal except as documented Past Medical History Surgical History OTHER SURGICAL HX: As in the history of present illness Meds Home Medications and Allergies Home Medications ?Medication ?Instructions ?Recorded ?Confirmed ?Type clopidogrel 75 mg tablet 75 mg PO QDAY 10/20/23 12/16/24 History isosorbide mononitrate 30 mg 60 mg PO QDAY 10/20/23 12/16/24 History tablet,extended release 24 hr metoprolol tartrate 25 mg tablet 50 mg PO BID 10/20/23 12/16/24 History diltiazem HCl 60 mg 60 mg PO QDAY 07/18/24 12/16/24 History capsule,extended release 12 hr famotidine 20 mg tablet 20 mg PO QDAY 12/16/24 12/16/24 History ferrous sulfate 325 mg (65 mg 325 mg PO QDAY 12/16/24 12/16/24 History iron) tablet Allergies Allergy/AdvReac Type Severity Reaction Status Date / Time bee pollen Allergy Severe Anaphylaxis Verified 12/15/24 13:39 Sulfa (Sulfonamide Allergy Intermediate Swelling Verified 12/15/24 13:39 Antibiotics) of Lip/Tongue/Throat ampicillin Allergy Unknown Hives Verified 12/15/24 13:39 hydrocodone AdvReac Unknown Nausea Verified 12/15/24 13:39 COLLAGEN Allergy Intermediate Rash Uncoded 12/15/24 13:39 Exam Vital Signs Temp Pulse Resp BP Pulse Ox O2 Del Method 96.9 F 118 H 13 169/101 H 100 Room Air 12/16/24 16:58 12/16/24 16:58 12/16/24 16:58 12/16/24 16:58 12/16/24 16:58 12/16/24 16:00 Constitutional Comments: Chronically ill-appearing Routine Respiratory Exam Comments: Decreased breath sounds at the bases Results Labs 12/18/24 07:33 12/18/24 07:33 Labs: Short CBC 12/16/24 12/16/24 Range/Units 05:35 17:41 WBC 11.5 H D (3.8-10.6) Thou/mm3 Hgb 5.9 L* D 10.4 L D (13.5-16.0) g/dL Hct 18.7 L* 31.7 L D (41.0-53.0) % Plt Count 381 D (140-440) Thou/mm3 BMP 12/16/24 05:35 Sodium 142 Potassium 3.5 D Chloride 109 H Carbon Dioxide 20.2 BUN 30 H Creatinine 2.0 H Glucose 112 H Calcium 8.2 L Liver Function 12/16/24 Range/Units 05:35 Total Bilirubin 0.3 (0.3-1.2) mg/dL AST 23 (0-34) U/L ALT 16 (10-49) U/L Alkaline Phosphatase 97 D (46-116) U/L Albumin 2.7 L D (3.4-4.8) gm/dL ABG Interpretation ABG results: 12/15/24 23:50 ABG pH 7.41 ABG pCO2 30 L ABG pO2 112 H ABG HCO3 19 L ABG O2 Saturation 99 H ABG Base Excess -6 L Assessment and Plan Additional Assessment & Plan Additional Plan: # Anemia blood loss multifactorial in a patient with previous history of endoscopic proven distal esophageal ulcer on endoscopy on 05/12/2024 Very low hemoglobin hematocrit at 5.9 and 18.7 recommend for the patient to undergo fiberoptic esophagogastroduodenoscopy with possible biopsy possible therapeutic intervention which has been tentatively scheduled for tomorrow N.p.o. midnight tonight IV Protonix Other medical problems include Osteomyelitis T12 L1-L2 Soft tissue infection of the back CVA Chronic A-fib Coronary artery disease status post PTCA Thank you very much for the opportunity to participate in care of this patient
[2024-12-16] MEDS: ATORVASTATIN CALCIUM 20 MG TABLET 80 MG PO (21:09)
--- NOTE | 2024-12-16 21:32 | PC.NURSE ---
Dr. Mahmood made aware by RN via phone that patient is developing hives like symptoms and is picking at his right shoulder which is running his cefepime. Patient has an allergy to ampicillin and Dr. Wahl made aware during the admission to Telemetry on 12/16. Dr. Wahl made ok to give IV cefepime and monitor for symptoms. Benadryl ordered by Dr. Mahmood.
--- NOTE | 2024-12-16 22:13 | PC.NURSE ---
MD made aware of rash extending to parts of his left shoulder, right back, right lower abd and left buttock/thigh. Per MD, will hold IV cefepime and will follow up with RN.
[2024-12-16] MEDS: FAMOTIDINE INJ 10 MG/ML VIAL 2 ML 20 MG IVP (23:50)
[2024-12-16] MEDS: DEXAMETHASONE SOD PHOS INJ 4 MG/ML VIAL IV (23:51)
[2024-12-17] VITALS (23 sets, daily range): BP systolic 131–172; BP diastolic 81–122; PULSE 65–178; RESP 10–96; TEMP 35.9–36.4; O2SAT 92–100; BMI 30.8
--- NOTE | 2024-12-17 03:05 | PC.NURSE ---
DR. PEPPER MADE AWARE OF 4 MINUTE EPISODE OF AFIB RVR, HR 170'S. PT HR BETWEEN 110-150'S, OCCASSIONALLY IN 170'S BUT NOT SUSTAINING. SBP 140'S. NO OBVIOUS SIGNS OF DISTRESS. PT CONFUSED AND UNABLE TO STATE IF IN PAIN BUT RESTLESS THROUGHOUT THE NIGHT. MD PREVIOUSLY AWARE. STATES THAT SHE WILL PLACE ORDERS FOR PT'S ELEVATED HR.
[2024-12-17] MEDS: DILTIAZEM INJ 5 MG/ML VIAL 5 ML 20 MG IV (03:23)
[2024-12-17 04:55] LABS: Basophils # (Auto) 0.0 Thou/mm3 (0.0-0.2); Basophils % (Auto) 0 % (0-2.5); Eosinophils # (Auto) 0.1 Thou/mm3 (0.0-0.5); Eosinophils % (Auto) 1 % (0-10); Hematocrit 31.3 % (41.0-53.0); Hemoglobin 10.2 g/dL (13.5-16.0); Immature Granulocytes Auto 0.13 Thou/mm3 (0.00-0.00); Lymphocytes # (Auto) 0.2 Thou/mm3 (1.0-4.8); Lymphocytes % (Auto) 2 % (10-50); Mean Corpuscular HGB Conc 32.6 g/dl (31.0-37.0); Mean Corpuscular Hemoglobin 27.6 pg (25.0-35.0); Mean Corpuscular Volume 85 fL (80-100); Monocytes # (Auto) 0.1 Thou/mm3 (0.0-0.8); Monocytes % (Auto) 1 % (0-12); Neutrophils # (Auto) 9.0 Thou/mm3 (1.8-7.7); Neutrophils % (Auto) 94 % (37-80); Nucleated Red Blood Cell # 0.00 Thou/mm3 (0.00-0.00); Nucleated Red Blood Cell % 0 /100 WBC (0); Platelet Count 449 Thou/mm3 (140-440); RDW Standard Deviation 54.4 fL (35.1-43.9); Red Blood Count 3.69 Miln/mm3 (4.50-5.90); White Blood Count 9.5 Thou/mm3 (3.8-10.6)
[2024-12-17 05:12] LABS: INR 1.5 (0.9-1.3); Partial Thromboplastin Time 36.7 Seconds (22.0-36.0); Prothrombin Time 15.6 Seconds (9.0-12.2)
[2024-12-17 05:16] LABS: Alanine Aminotransferase 19 U/L (10-49); Albumin, Serum 3.2 gm/dL (3.4-4.8); Albumin/Globulin Ratio 0.9 (1.2-2.2); Alkaline Phosphatase 111 U/L (46-116); Anion Gap 15 (7-16); Aspartate Amino Transferase 33 U/L (0-34); BUN/Creatinine Ratio 12 Ratio (12-20); Bilirubin,Total 0.6 mg/dL (0.3-1.2); Blood Urea Nitrogen 24 mg/dL (9-23); Calcium 8.7 mg/dL (8.3-10.6); Calcium (Corrected) 9.3 mg/dL (8.5-10.1); Carbon Dioxide 15.6 mMol/L (20.0-31.0); Chloride 110 mMol/L (98-107); Creatinine (Component) 2.0 mg/dL (0.6-1.3); Estimated Creatinine Clearance 39.1 mL/min (>60); Globulin 3.6 gm/dL (2.3-3.5); Glucose 99 mg/dL (74-106); Magnesium 2.5 mg/dL (1.6-2.6); Osmolality,Calculated 285 (275-295); Phosphorous 3.5 mg/dL (2.4-5.1); Potassium 4.2 mMol/L (3.4-5.1); Sodium 141 mMol/L (136-145); Total Protein 6.8 gm/dL (5.7-8.2); Vancomycin,Random 16.5 mcg/mL; eGFR 37 See Note
--- NOTE | 2024-12-17 08:52 | EKG_ITS ---
[facility] Test Date: 2024-12-17 Pat Name: NARINDER JACOBO Department: Room: S279A Gender: Male Community Services Manager: CIPRIANO : 1960 Requested By: Yadira Alatorre Order Number: [id number] Reading MD: Yadira Alatorre Measurements Intervals [place] Rate: 81 P: ME: QRS: -5 QRSD: 103 T: 48 QT: 429 QTc: 500 Interpretive Statements ATRIAL FIBRILLATION INCOMPLETE RIGHT BUNDLE BRANCH BLOCK MINIMAL ST DEPRESSION PROLONGED QT INTERVAL Compared to ECG 12/15/2024 15:17:56 Incomplete right bundle-branch block now present Prolonged QT interval now present ST (T wave) deviation still present /store/S0/[id number]
--- NOTE | 2024-12-17 09:12 | ESPR_ITS ---
<Statement entered by Geoff Gallego MD - 12/17/24 14:37> I have discussed and was present for the essential components of the history, physical examination, diagnosis, and treatment plan with the resident. I agree with the patient's care as documented by the resident and amended herein by me. Geoff Gallego MD FACP. Documentation for date of: 12/17/24 Subjective Subjective Interval history: No Overnight events. Labs reviewed and patient examined at the bedside. Yesterday's patient's hemoglobin level dropped to 5.9. Patient received 2 units of PRBC transfusion. Right now, his hemoglobin level is 10.2. GI consulted. Currently planned for EGD with possible biopsy today. Patient's WBC count is downtrending to 9.5 from 11.5. Blood culture 12/15 showed no growth for 24 hours. Started on doxycycline PO qd Lower extremity showed negative for DVT. Patient currently in NPO. Today the patient looks more agitated and delirious Head CT without contrast ordered to rule out any intracranial hemorrhage. Encouraged his to provide more frequent conversation and encouraged opening curtains during the day to increase natural light exposure during hospital stay. Overnight team has provided the patient with olanzapine for his agitation, but, according to his , the medication didn't have any effect. Exam Vital Signs Temp Pulse Resp BP Pulse Ox O2 Del Method 96.9 F 105 H 10 L 137/92 H 95 Room Air 12/17/24 08:00 12/17/24 08:00 12/17/24 08:00 12/17/24 08:00 12/17/24 08:00 12/17/24 08:00 Narrative Exam General: Alert and oriented x1, No apparent distress. Skin: Intact, Warm, no rashes. 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 HEENT: Normocephalic, Atraumatic. Normal neck range of motion, Supple. Trachea midline. Severe Hearing loss b/l. Respiratory: Lungs are clear to auscultation, Breath sounds are equal bilaterally with equal chest expansion. Cardiovascular: irregular rhythm, normal S1, S2, No murmurs. Distal pulses 2+. Abdomen: Abdomen non-distended, without erythema, or lesions. Normotensive bowel sounds x4. Percussion tympanic. Palpation soft, nontender in all four quadrants. No organomagely. Absent rigidity, guarding, or rebound. Musculoskeletal/Extremities: No erythema, swelling, tenderness of any joints. No edema of BLE. DP pulses +2/3 b/l. Patient cannot move his b/l extremities but can sense gross touch L3-S1 dermatomes b/l. Neurologic: CN II-XII grossly intact, no focal deficits, alert, following limited commands Objective Labs 12/17/24 04:28 12/17/24 04:28 Labs: Laboratory Results - last 24 hr 12/16/24 12/16/24 12/17/24 05:35 17:41 04:28 WBC 9.5 RBC 3.69 L Hgb 10.4 L D 10.2 L Hct 31.7 L D 31.3 L MCV 85 MCH 27.6 MCHC 32.6 RDW Std Deviation 54.4 H Plt Count 449 H D Neut % (Auto) 94 H Lymph % (Auto) 2 L [place] % (Auto) 1 Eos % (Auto) 1 Baso % (Auto) 0 Neut # (Auto) 9.0 H Lymph # (Auto) 0.2 L [place] # (Auto) 0.1 Eos # (Auto) 0.1 Baso # (Auto) 0.0 Immature Gran # (Auto) 0.13 H Absolute Nucleated RBC 0.00 Immature Gran % 1 H Nucleated RBC % 0 ESR 17 PT 15.6 H INR 1.5 H APTT 36.7 H Sodium 141 Potassium 4.2 D Chloride 110 H Carbon Dioxide 15.6 L Anion Gap 15 BUN 24 H Creatinine 2.0 H Estim Creat Clear Calc 39.1 L eGFR 37 L BUN/Creatinine Ratio 12 Glucose 99 Calculated Osmolality 285 Calcium 8.7 Corrected Calcium 9.3 Phosphorus 3.5 Magnesium 2.5 Iron 22 L TIBC 130 L Iron Saturation 16 L Unsat Iron Binding 108 L Ferritin 653 H Total Bilirubin 0.6 AST 33 ALT 19 Alkaline Phosphatase 111 C-Reactive Prot, Quant 20.4 H Total Protein 6.8 Albumin 3.2 L D Globulin 3.6 H Albumin/Globulin Ratio 0.9 L Random Vancomycin 14.2 16.5 Blood Type O Positive Antibody Screen NEGATIVE Crossmatch See Detail Blood Bank Wristband ID Yes ABG Interpretation ABG results: 12/15/24 23:50 ABG pH 7.41 ABG pCO2 30 L ABG pO2 112 H ABG HCO3 19 L ABG O2 Saturation 99 H ABG Base Excess -6 L Quality Measures Quality Measures VTE prophylaxis Assessment & Plan Assessment Current Active Medications: Generic Name Dose Route Start Last Admin Trade Name Freq PRN Reason Stop Dose Admin Acetaminophen 650 mg 12/16/24 00:05 12/16/24 18:25 Acetaminophen 325 Mg Tablet PO 01/15/25 00:04 650 mg Q6H PRN Administration Fever >100.4 or Pain (1-3) Atorvastatin Calcium 80 mg 12/16/24 21:00 12/16/24 21:09 Atorvastatin Calcium 20 Mg Tablet PO 01/15/25 20:59 80 mg HS HANNAH Administration Diltiazem HCl 60 mg 12/18/24 09:00 Diltiazem 30 Mg Tablet PO 01/17/25 08:59 QDAY HANNAH Diphenhydramine HCl 25 mg 12/16/24 21:33 12/16/24 21:59 Diphenhydramine 25 Mg Capsule PO 01/15/25 21:32 25 mg Q6HR PRN Administration Hives Cefepime HCl 2 gm/ Sodium 50 mls @ 100 mls/hr 12/16/24 00:45 12/16/24 21:30 Chloride IV 12/23/24 00:44 0 mls/hr On Hold: 12/16/24 23:17 Q8HR HANNAH Infusion Vancomycin/Sodium Chloride 100 mls @ 120 mls/hr 12/17/24 10:00 Vancomycin/Ns 500 Mg Ivpb IV 12/17/24 10:49 X1 ONE Metoprolol Tartrate 50 mg 12/17/24 09:00 Metoprolol Tartrate 25 Mg Tablet PO 01/16/25 08:59 BID HANNAH Ondansetron HCl 4 mg 12/16/24 00:05 Ondansetron Inj 2 Mg/Ml Inj 2 Ml IVP 01/15/25 00:04 Q6H PRN NAUSEA OR VOMITING Protocol Pantoprazole Sodium 40 mg 12/17/24 09:00 Pantoprazole 40 Mg Tablet PO 01/16/25 08:59 BID [facility] Pharmacy Consult 1 each 12/16/24 09:00 Vancomycin Pharmacy To Dose 1 Each Each IV 01/15/25 08:59 QDAY PRN PROTOCOL Sennosides 1 tab 12/16/24 09:00 12/16/24 09:00 Senna Tablet PO 11/10/25 08:59 Not Given QDAY HANNAH Protocol Plan 64-year-old past medical history of hypertension, atrial fibrillation, coronary artery disease with stent placement, and a stroke in May 2023 after being taken off of Eliquis for a bleeding stomach ulcer, who presented from a wound care center on 12/15/2024 for evaluation of low grade fever. Patient admitted for sepsis treatment. #Sepsis, resolving #Lactic acidosis, improving #Pneumonia, less likely #osteomyelitis, chronic #Acute encephalopathy Clinical picture meets 3/4 SIRS criteria at ED presentation: T 101.5 (>100.9 or <96.8F), RR 17 (>20/min), HR 172 to (>90/min), WBC 18.7 (>12 or <4K or Bands >10%). Source of infection could be either of pneumonia, decubitus ulcer, or UTI, or osteomyelitis LA 4.7, trended down to 1.2, after 2 L of LR ABG pH 7.41, pCO2 30, pO2 112, HCO3 19 -Metabolic acidosis with compensatory respiratory alkalosis. Reportedly, patient has been feeling confused, febrile, shivering, with loss of appetite. Patient at 100 kg, will need 100 x30ml/kg of total IV fluids, short of 1 L. Pt received Zosyn 3.375g and vancomycin 1g x1 in ED. ? CT T-spine showed large soft tissue infection in the posterior back, with osteomyelitis involving T12-L1 and L2 ? MRI lumbar spine showed soft tissue infection posterior to T12-L4, as well as osteomyelitis T12, L1, L2. No epidural abscess ? CXR showed no lobar pneumonia or pulmonary edema ? CTAP showed right base pneumonia with small Rt pleural effusion, and significant b/l renal scar formation. 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 -referral wound care -Watch for signs of infection closely, that is erythema, fevers, or regional pain #Anemia, normocytic Initial presentation Hgb 7.4, MCV 88. Patient with hx of GI bleed/ulcers. Hemoglobin dropped to 5.9, 2 units packed RBC transfused 12/16, hemoglobin improved to 10.4 Iron levels low, ferritin high -watch Hgb closely, transfuse if <7 -Dr. Claros consulted, appreciate recs -Follow FOBT -Pending EGD today. #ARIA on CKD #CKD stage [IIIb] Creatinine 2.0 elevated above baseline Cr range of [1.5-1.7] BUN 31, BUNs/CR 16, eGFR 37. ARIA likely to be prerenal in the setting of sepsis, ?Renally dose meds, avoid overdiuresis, or nephrotoxins #Atrial fibrillation with RVR #CAD with stents #CVA with residual deficit EKG at presentation revealed atrial fibrillation with RVR Patient with history of chronic atrial fibrillation Patient apparently developed stroke after being taken off Eliquis for GI bleed. -home Eliquis p.o. 5 mg twice daily HOLD. -Atorvastatin PO 80mg HS -Held Plavix as hemoglobin less than 7 -Keep Mg >2 and K+ >4 #Liver cirrhosis vs primary hepatocelluar disease Liver ultrasound on 10/18/2024 MELD score 19 which suggests 6% possibility of mortality in 3mo. 12/15/2024: PT 17.6 H, INR 1.7 H, and aPTT 35.2 -Monitor synthetic liver function with INR and platelet count daily Health Maintenance: Disposition: Telemetry Diet: Dysphagia to diet PPx DVT: Restart Eliquis 5 mg twice daily when hemoglobin stable and not at risk for bleed PPx GI: Pantoprazole IVP 40mg twice daily Code Status: full Assessment and plan discussed with my attending physician Dr. Lashonda Duvall (PGY-1) - Internal medicine resident
[2024-12-17 09:37] LABS: Lactate (Lactic Acid) 1.4 mMol/L (0.4-2.0)
--- NOTE | 2024-12-17 09:40 | PC.SS ---
Addendum entered by ALBERTINA Earl 12/17/24 14:59: Rounding note: Patient does not have coverage for SNF per [facility] staff. Patient is connected with [facility]. Pending eeg. Addendum entered by ALBERTINA Earl 12/17/24 11:28: SS update: Joana from [facility] notified [facility] that patient d/c from their facility on 10/07/24 and if patient has stayed out of hospital for 60 days they can accept. Original Note: SS update: [facility]IP [facility]PER notified team B doctors that patients is requesting SNF placement. [facility]PER confirmed with patients bedside nurse Venkat if patient was on any psychotropic medications, Venkat stated that patient was not on any psychotropic medication. GRIP WR[employer]PER submitted SNF referral via [employer] pending PASSR.
[2024-12-17] MEDS: PANTOPRAZOLE 40 MG TABLET PO (09:49)
[2024-12-17] MEDS: METOPROLOL TARTRATE 25 MG TABLET 50 MG PO ×2 (09:49→21:15)
[2024-12-17] MEDS: VANCOMYCIN/NS 500 MG IVPB 100 ML 120 MG IV (09:54)
--- NOTE | 2024-12-17 14:01 | XR_ITS ---
Examination: CT brain head without contrast. 2-D sagittal coronal reconstructions Date and time of exam: December 17 0 25, 1456 hours INDICATIONS: Altered mental status beginning 2 days ago CTDI: vol (mGy): 50.6 DLP: (mGycm): 1013 Technique: Multiple CT axial sections of the brain have been obtained, 5 mm slice thickness. Contrast has not been administered. 2-D sagittal, coronal reconstructions have been obtained Low dose protocols were performed. One or more of the following dose reduction techniques were used; automated exposure control, adjustment of the mA and/or KV according to patient size, use of iterative reconstruction technique. Findings: The images are degraded by patient motion No gross hemorrhage or mass effect The ventricles are not enlarged IMPRESSION: The images are degraded significantly by patient motion No gross hemorrhage Repeat this study without patient motion
[2024-12-17 15:00] LABS: Cocci Serology, IgM Negative (Negative)
--- NOTE | 2024-12-17 16:12 | SUR.PHASEI ---
restraints removed upon arrival to PACU, circulation to bilateral fingers WNL, no visible irritation to hands or wrists bilaterally
--- NOTE | 2024-12-17 16:47 | SUR.PHASEI ---
1612: pt arrived to PACU via gurney with eyes closed, pt responds to voice by squeezing nurses hand, breathing unlabored, report from Narcisa MACK [id number]: pt opens eyes but does not respond verbally, VS stable, report called to Venkat MACK, pt transferred to room at this time.
[2024-12-17] MEDS: ATORVASTATIN CALCIUM 20 MG TABLET 80 MG PO (21:15)
[2024-12-18] VITALS (12 sets, daily range): BP systolic 108–161; BP diastolic 78–109; PULSE 63–112; RESP 16–24; TEMP 35.8–36.4; O2SAT 94–100; BMI 30.8
[2024-12-18] MEDS: METOPROLOL TARTRATE 25 MG TABLET 50 MG PO (08:11)
[2024-12-18] MEDS: DOXYCYCLINE 100 MG TABLET PO (08:11)
[2024-12-18] MEDS: DILTIAZEM 30 MG TABLET 60 MG PO (08:12)
[2024-12-18 08:18] LABS: Alanine Aminotransferase 16 U/L (10-49); Albumin, Serum 3.1 gm/dL (3.4-4.8); Albumin/Globulin Ratio 0.9 (1.2-2.2); Alkaline Phosphatase 108 U/L (46-116); Anion Gap 14 (7-16); Aspartate Amino Transferase 24 U/L (0-34); BUN/Creatinine Ratio 14 Ratio (12-20); Basophils # (Auto) 0.0 Thou/mm3 (0.0-0.2); Basophils % (Auto) 0 % (0-2.5); Bilirubin,Total 0.5 mg/dL (0.3-1.2); Blood Urea Nitrogen 30 mg/dL (9-23); Calcium 8.7 mg/dL (8.3-10.6); Calcium (Corrected) 9.4 mg/dL (8.5-10.1); Carbon Dioxide 18.4 mMol/L (20.0-31.0); Chloride 112 mMol/L (98-107); Creatinine (Component) 2.1 mg/dL (0.6-1.3); Eosinophils # (Auto) 0.0 Thou/mm3 (0.0-0.5); Eosinophils % (Auto) 0 % (0-10); Estimated Creatinine Clearance 37.9 mL/min (>60); Globulin 3.6 gm/dL (2.3-3.5); Glucose 127 mg/dL (74-106); Hematocrit 36.5 % (41.0-53.0); Hemoglobin 11.8 g/dL (13.5-16.0); Immature Granulocytes Auto 0.19 Thou/mm3 (0.00-0.00); Lymphocytes # (Auto) 0.5 Thou/mm3 (1.0-4.8); Lymphocytes % (Auto) 5 % (10-50); Magnesium 2.3 mg/dL (1.6-2.6); Mean Corpuscular HGB Conc 32.3 g/dl (31.0-37.0); Mean Corpuscular Hemoglobin 27.8 pg (25.0-35.0); Mean Corpuscular Volume 86 fL (80-100); Monocytes # (Auto) 0.4 Thou/mm3 (0.0-0.8); Monocytes % (Auto) 4 % (0-12); Neutrophils # (Auto) 8.9 Thou/mm3 (1.8-7.7); Neutrophils % (Auto) 89 % (37-80); Nucleated Red Blood Cell # 0.00 Thou/mm3 (0.00-0.00); Nucleated Red Blood Cell % 0 /100 WBC (0); Osmolality,Calculated 295 (275-295); Phosphorous 4.4 mg/dL (2.4-5.1); Platelet Count 441 Thou/mm3 (140-440); Potassium 4.1 mMol/L (3.4-5.1); RDW Standard Deviation 57.3 fL (35.1-43.9); Red Blood Count 4.24 Miln/mm3 (4.50-5.90); Sodium 144 mMol/L (136-145); Total Protein 6.7 gm/dL (5.7-8.2); Vancomycin,Random 19.1 mcg/mL; White Blood Count 10.0 Thou/mm3 (3.8-10.6); eGFR 35 See Note
[2024-12-18 08:28] LABS: INR 1.4 (0.9-1.3); Partial Thromboplastin Time 35.3 Seconds (22.0-36.0); Prothrombin Time 14.9 Seconds (9.0-12.2)
--- NOTE | 2024-12-18 08:56 | PCS.ST ---
Recommend puree diet Dysphagia 1, when cleared to advance diet. See treatment notes for details.
--- NOTE | 2024-12-18 10:45 | ESPR_ITS ---
Subjective Subjective Interval history: prior t spine process noted in june. now with lilibeth osteo on imaging Exam Vital Signs Temp Pulse Resp BP Pulse Ox O2 Del Method O2 Flow Rate 97.5 F 87 24 H 158/109 H 99 Room Air 3 12/18/24 08:00 12/18/24 08:12 12/18/24 08:00 12/18/24 08:12 12/18/24 08:00 12/18/24 08:00 12/17/24 16:00 Narrative Exam seen. prior pos cx noted. rx appears to be empirical based on cx pt not interactive. Objective - Internal Medicine Labs 12/18/24 07:33 12/18/24 07:33 Labs: Laboratory Results - last 24 hr 12/17/24 12/18/24 10:45 07:33 WBC 10.0 RBC 4.24 L Hgb 11.8 L Hct 36.5 L MCV 86 MCH 27.8 MCHC 32.3 RDW Std Deviation 57.3 H Plt Count 441 H Neut % (Auto) 89 H Lymph % (Auto) 5 L [place] % (Auto) 4 Eos % (Auto) 0 Baso % (Auto) 0 Neut # (Auto) 8.9 H Lymph # (Auto) 0.5 L [place] # (Auto) 0.4 Eos # (Auto) 0.0 Baso # (Auto) 0.0 Immature Gran # (Auto) 0.19 H Absolute Nucleated RBC 0.00 Immature Gran % 2 H Nucleated RBC % 0 PT 14.9 H INR 1.4 H APTT 35.3 Sodium 144 Potassium 4.1 Chloride 112 H Carbon Dioxide 18.4 L Anion Gap 14 BUN 30 H Creatinine 2.1 H Estim Creat Clear Calc 37.9 L eGFR 35 L BUN/Creatinine Ratio 14 Glucose 127 H Calculated Osmolality 295 Calcium 8.7 Corrected Calcium 9.4 Phosphorus 4.4 Magnesium 2.3 Total Bilirubin 0.5 AST 24 ALT 16 Alkaline Phosphatase 108 Total Protein 6.7 Albumin 3.1 L Globulin 3.6 H Albumin/Globulin Ratio 0.9 L Random Vancomycin 19.1 Coccidioides IgM Ab Negative ABG Interpretation ABG results: 12/15/24 23:50 ABG pH 7.41 ABG pCO2 30 L ABG pO2 112 H ABG HCO3 19 L ABG O2 Saturation 99 H ABG Base Excess -6 L Assessment & Plan A&P Narrative ok christel treat empirically with rocephin and po doxyfor 8 weeks overall from date of surgery no pos cx here or in radha by report. fever initially noted 12/15 then gone ckd so vanco problematic for halfway use likely to need a picc line. repeated rx of limited value so if this fails, doing it again not generally advised. ok to give iv rx for 8 weeks for back. but if wound not improved, more iv rx will not heal it. prior vanco would have addressed the urine so more is not needed Time Spent With Patient Time: Total time spent is greater than 50% in coordination of care (as documented) at patient's floor/unit and/or counseling patient:
--- NOTE | 2024-12-18 10:53 | PD.RESCONSUL ---
HPI Data of Consult Requesting Physician: Ahsan Owen MD Admitting Provider: Suzanna Bellamy DO Attending Provider: Ahsan Owen MD Primary Care Provider: Wilfredo Navarro MD Consult Narrative Reason for consult: osteomyelitis History of present illness: Mr. 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 Patient recently with thoracic spine osteomyelitis back in June after being transferred to [place]. Imaging confirmed osteomyelitis of T12-L2 as well as soft tissue infection posterior to T12-L4. Patient admitted for further management of acute encephalopathy in setting of infection. ID was consulted for further management. cc:: cc: Ahsan Owen MD Review of Systems Review of Systems Systems Reviewed: All systems reviewed, normal except as documented Exam Vital Signs Temp Pulse Resp BP Pulse Ox O2 Del Method O2 Flow Rate 97.5 F 87 24 H 158/109 H 99 Room Air 3 12/18/24 08:00 12/18/24 08:12 12/18/24 08:00 12/18/24 08:12 12/18/24 08:00 12/18/24 08:00 12/17/24 16:00 Narrative Exam General Appearance: Pt in NAD alert to name. Unable to have a conversation. HEENT: NC/AT, no scleral icterus, no conjunctival pallor, MMM, bilateral hearing loss Lungs: CTAB, no wheezes or crackles appreciated CVS: Irregularly, irregular S1/S2 heard, no murmurs or rubs appreciated ABD: Soft, non-tender, non-distended, BS + in all 4 quadrants EXT: no deformity/edema/lesions/cyanosis/clubbing, radial pulses 2+ BL, DP pulses 2 + BL SKIN: Skin exam normal without any rashes except for stage IV pressure ulcer at lower thoracic spine Neuro: A&O x 3. No gross neurological deficits. Patient unable to move lower extremities however sensations intact from L3-S1 bilaterally. Psych: Appropriate mood and affect Results Labs 12/19/24 05:24 12/19/24 05:24 Labs: Short CBC 12/18/24 Range/Units 07:33 WBC 10.0 (3.8-10.6) Thou/mm3 Hgb 11.8 L (13.5-16.0) g/dL Hct 36.5 L (41.0-53.0) % Plt Count 441 H (140-440) Thou/mm3 BMP 12/18/24 07:33 Sodium 144 Potassium 4.1 Chloride 112 H Carbon Dioxide 18.4 L BUN 30 H Creatinine 2.1 H Glucose 127 H Calcium 8.7 Liver Function 12/18/24 Range/Units 07:33 Total Bilirubin 0.5 (0.3-1.2) mg/dL AST 24 (0-34) U/L ALT 16 (10-49) U/L Alkaline Phosphatase 108 (46-116) U/L Albumin 3.1 L (3.4-4.8) gm/dL ABG Interpretation ABG results: 12/15/24 23:50 ABG pH 7.41 ABG pCO2 30 L ABG pO2 112 H ABG HCO3 19 L ABG O2 Saturation 99 H ABG Base Excess -6 L Quality Measures Quality Measures VTE prophylaxis Medications Home Medications and Allergies Home Medications ?Medication ?Instructions ?Recorded ?Confirmed ?Type clopidogrel 75 mg tablet 75 mg PO QDAY 10/20/23 12/21/24 History isosorbide mononitrate 30 mg 60 mg PO QDAY 10/20/23 12/21/24 History tablet,extended release 24 hr metoprolol tartrate 25 mg tablet 50 mg PO BID 10/20/23 12/21/24 History diltiazem HCl 60 mg 60 mg PO QDAY 07/18/24 12/21/24 History capsule,extended release 12 hr Allergies Allergy/AdvReac Type Severity Reaction Status Date / Time bee pollen Allergy Severe Anaphylaxis Verified 12/15/24 13:39 Sulfa (Sulfonamide Allergy Intermediate Swelling Verified 12/15/24 13:39 Antibiotics) of Lip/Tongue/Throat ampicillin Allergy Unknown Hives Verified 12/15/24 13:39 hydrocodone AdvReac Unknown Nausea Verified 12/15/24 13:39 COLLAGEN Allergy Intermediate Rash Uncoded 12/15/24 13:39 Visit Medications Acetaminophen (Acetaminophen 325 Mg Tablet) 650 mg PO Q6H PRN PRN Reason: Fever >100.4 or Pain (1-3) Stop: 01/15/25 00:04 Last Admin: 12/16/24 18:25 Dose: 650 mg Atorvastatin Calcium (Atorvastatin Calcium 20 Mg Tablet) 80 mg PO HS [facility] Stop: 01/15/25 20:59 Last Admin: 12/17/24 21:15 Dose: 80 mg Diltiazem HCl (Diltiazem 30 Mg Tablet) 60 mg PO QDAY [facility] Stop: 01/17/25 08:59 Last Admin: 12/18/24 08:12 Dose: 60 mg Diphenhydramine HCl (Diphenhydramine 25 Mg Capsule) 25 mg PO Q6HR PRN PRN Reason: Hives Stop: 01/15/25 21:32 Last Admin: 12/16/24 21:59 Dose: 25 mg Doxycycline Hyclate (Doxycycline 100 Mg Tablet) 100 mg PO BID [facility] Stop: 12/25/24 20:59 Ceftriaxone Sodium/Dextrose (Rocephin/D5w 2gm) 2 gm in 50 mls @ 100 mls/hr IV QDAY [facility] Stop: 12/25/24 10:59 Metoprolol Tartrate (Metoprolol Tartrate 25 Mg Tablet) 50 mg PO BID [facility] Stop: 01/16/25 08:59 Last Admin: 12/18/24 08:11 Dose: 50 mg Ondansetron HCl (Ondansetron Inj 2 Mg/Ml Inj 2 Ml) 4 mg IVP Q6H PRN; Protocol PRN Reason: NAUSEA OR VOMITING Stop: 01/15/25 00:04 Pantoprazole Sodium (Pantoprazole Inj 40 Mg Vial) 40 mg IVP BID [facility] Stop: 01/16/25 20:59 Last Admin: 12/18/24 08:10 Dose: 40 mg Sennosides (Senna Tablet) 1 tab PO QDAY [facility]; Protocol Stop: 01/15/25 08:59 Last Admin: 12/18/24 08:11 Dose: 1 tab Discontinued Medications Acetaminophen (Acetaminophen 500 Mg Tablet) 1,000 mg PO X1 ONE Stop: 12/15/24 13:33 Last Admin: 12/15/24 14:16 Dose: Not Given Apixaban (Apixaban 2.5 Mg Tablet) 5 mg PO BID [facility] Stop: 01/15/25 08:59 Benzocaine (Benzocaine 20% (Hurricaine) Moore 1 Dose) 0 dose TOP X1 ONE Stop: 12/17/24 15:32 Last Admin: 12/17/24 19:01 Dose: Not Given Dexamethasone Sodium Phosphate (Dexamethasone Sod Phos Inj 4 Mg/Ml Vial) 4 mg IV X1 ONE; Protocol Stop: 12/16/24 23:18 Last Admin: 12/16/24 23:51 Dose: 4 mg Diltiazem HCl (Diltiazem Inj 5 Mg/Ml Vial 5 Ml) 20 mg IV X1 ONE Stop: 12/17/24 03:16 Last Admin: 12/17/24 03:23 Dose: 20 mg Diphenhydramine HCl (Diphenhydramine Inj 50 Mg/Ml Vial) 25 mg IVP PRNMRX1 PRN PRN Reason: MODERATE SEDATION Stop: 12/17/24 17:31 Doxycycline Hyclate (Doxycycline 100 Mg Tablet) 100 mg PO QDAY [facility] Stop: 12/25/24 08:59 Last Admin: 12/18/24 08:11 Dose: 100 mg Famotidine (Famotidine Inj 10 Mg/Ml Vial 2 Ml) 20 mg IVP X1 ONE Stop: 12/15/24 13:55 Last Admin: 12/15/24 14:28 Dose: 20 mg Famotidine (Famotidine Inj 10 Mg/Ml Vial 2 Ml) 20 mg IVP X1 ONE Stop: 12/16/24 23:17 Last Admin: 12/16/24 23:50 Dose: 20 mg Fentanyl Citrate (Fentanyl Cit Inj 50 Mcg/Ml Amp 2ml) 50 mcg IVP Q2M PRN PRN Reason: MODERATE SEDATION Stop: 12/17/24 17:31 Hydroxyzine HCl (Hydroxyzine Hcl 25 Mg Tablet) 25 mg PO X1 ONE Stop: 12/16/24 14:51 Last Admin: 12/16/24 14:59 Dose: 25 mg Lactated Ringer's (Lactated Ringers) 1,000 mls @ 999 mls/hr IV .Q1H1M ONE Stop: 12/15/24 14:32 Last Infusion: 12/15/24 16:00 Dose: Infused Acetaminophen (Ofirmev Inj) 1,000 mg in 100 mls @ 250 mls/hr IV X1 ONE Stop: 12/15/24 14:07 Last Infusion: 12/15/24 14:27 Dose: Infused Piperacillin/Tazobactam/Dextrose (Zosyn) 3.375 gm in 50 mls @ 100 mls/hr IV X1 ONE; Protocol Stop: 12/15/24 14:13 Last Infusion: 12/15/24 15:00 Dose: Infused Lactated Ringer's (Lactated Ringers) 1,000 mls @ 999 mls/hr IV .Q1H1M ONE Stop: 12/15/24 14:54 Last Infusion: 12/15/24 16:00 Dose: Infused Vancomycin/Sodium Chloride (Vancomycin/Ns 1 Gm Ivpb) 200 mls @ 120 mls/hr IV X1 ONE Stop: 12/15/24 18:51 Last Infusion: 12/15/24 20:24 Dose: Infused Lactated Ringer's (Lactated Ringers) 1,000 mls @ 75 mls/hr IV .[id number] [facility] Stop: 12/16/24 13:34 Last Infusion: 12/16/24 12:36 Dose: 75 mls/hr Magnesium Sulfate (Magnesium Sulfate Ivpb) 4 gm in 50 mls @ 12.5 mls/hr IV X1 ONE Stop: 12/16/24 04:20 Last Admin: 12/16/24 01:26 Dose: 12.5 mls/hr Ceftriaxone Sodium 2 gm/ (Sodium Chloride) 50 mls @ 100 mls/hr IV QDAY [facility] Stop: 12/23/24 00:26 Last Admin: 12/16/24 02:51 Dose: Not Given Cefepime HCl 2 gm/ Sodium (Chloride) 50 mls @ 100 mls/hr IV Q8HR [facility] Stop: 12/23/24 00:44 Last Infusion: 12/16/24 21:30 Dose: 0 mls/hr Potassium Chloride (Kcl Ivpb) 10 meq in 100 mls @ 100 mls/hr IV Q1H [facility] Stop: 12/16/24 12:15 Last Admin: 12/16/24 16:42 Dose: 100 mls/hr Vancomycin/Sodium Chloride (Vancomycin/Ns 500 Mg Ivpb) 100 mls @ 120 mls/hr IV X1 ONE Stop: 12/16/24 11:04 Last Admin: 12/16/24 12:40 Dose: 120 mls/hr Vancomycin/Sodium Chloride (Vancomycin/Ns 500 Mg Ivpb) 100 mls @ 120 mls/hr IV X1 ONE Stop: 12/17/24 10:49 Last Admin: 12/17/24 09:54 Dose: 120 mls/hr Sodium Chloride (Ns) 500 mls @ 20 mls/hr IV .Q24H ONE Stop: 12/18/24 15:30 Last Admin: 12/17/24 19:09 Dose: Not Given Ceftriaxone Sodium 2 gm/ (Sodium Chloride) 50 mls @ 100 mls/hr IV QDAY [facility] Stop: 12/25/24 10:44 Ibuprofen (Ibuprofen Tab 400 Mg Tablet) 800 mg PO X1 ONE Stop: 12/15/24 13:55 Last Admin: 12/15/24 14:28 Dose: 800 mg Lidocaine HCl (Lidocaine Jelly 2% (Urojet) 10 Ml Tube) 0 ml TOP X1 ONE Stop: 12/16/24 01:38 Last Admin: 12/16/24 04:24 Dose: Not Given Midazolam HCl (Midazolam Inj 1 Mg/Ml Vial 2 Ml) 2 mg IVP Q2M PRN PRN Reason: Moderate Sedation Stop: 12/17/24 17:31 Olanzapine (Olanzapine 5 Mg Tablet) 5 mg PO X1 ONE Stop: 12/17/24 00:12 Last Admin: 12/17/24 00:20 Dose: 5 mg Pantoprazole Sodium (Pantoprazole Inj 40 Mg Vial) 40 mg IVP QDAY [facility] Stop: 01/15/25 08:59 Pantoprazole Sodium (Pantoprazole Inj 40 Mg Vial) 40 mg IVP BID [facility] Stop: 01/15/25 08:59 Last Admin: 12/16/24 21:10 Dose: 40 mg Pantoprazole Sodium (Pantoprazole 40 Mg Tablet) 40 mg PO BID [facility] Stop: 01/16/25 08:59 Last Admin: 12/17/24 09:49 Dose: 40 mg Pharmacy Consult (Vancomycin Pharmacy To Dose 1 Each Each) 1 each IV QDAY PRN PRN Reason: PROTOCOL Stop: 01/15/25 08:59 Sodium Bicarbonate (Sodium Bicarb Inj 8.4% Syr 50 Ml Syringe) 50 ml IV X1 ONE Stop: 12/16/24 01:21 Last Admin: 12/16/24 01:37 Dose: 50 ml Assessment & Plan Plan Mr. 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 ID was consulted for further management. #Osteomyelitis of thoracic spine At this time we will recommend patient to receive 8 weeks of treatment with Rocephin 2 g daily and Doxy 100 mg twice daily. Patient also had a course of vancomycin which should have covered the Enterococcus that was seen in urine. Patient's creatinine continues to be stable at 2.1 but does have some underlying CKD. #Pneumonia #Decubitus ulcer #Anemia #ARIA on CKD #CKD stage IIIb #A-fib with RVR #CAD with stents #CVA with residual deficits #Liver cirrhosis vs primary hepatocellular disease -Treatment as per primary team Patient's plan and care discussed with my attending, Dr. Willie Fallon MD PGY-3
--- NOTE | 2024-12-18 11:19 | PC.SS ---
Follow up note: Waiting for urine cultures. Pt is on IV antibiotic. Pt will return home upon dc.
[2024-12-18] MEDS: cefTRIAXone/D5w 2gm 2 GM/50 ML BAG IV (12:04)
--- NOTE | 2024-12-18 12:53 | ESCONSULT_ITS ---
RE: NARINDER JACOBO : 1960 DATE OF CONSULTATION: 12/18/2024 REFERRING PHYSICIAN: Dr. Bellamy. REASON FOR CONSULTATION: Apparent urinary tract infection with abnormal urinalysis, chronic kidney disease stage III-IV and possible back infection. HISTORY OF PRESENT ILLNESS: The patient has a possible back infection and was sent to [place] for surgery apparently. It is unclear what sort of long-term antibiotics he may have received there. If we are going to treat him again, we need to give him something different and so I am going to go ahead and give him Rocephin and doxy. He has already had a couple days of vancomycin, so I am going to leave that for the urine as that is plenty. His UA just shows just 7 white cells. He appears to have a chronic [place]. The patient is not very interactive so I cannot get any history from him. His history is obtained from the record. We are going mostly off the imaging. His sed rate is 17, but CRP is high at 20.6 or approximately 20.8, so the esr is probably going to go up. pmh as noted psh as noted all per nursing data fh benign sh. nc as well pe non focal ASSESSMENT: Osteomyelitis of the T-spine noted initially in June on imaging, now a little bit worse. RECOMMENDATIONS: Recommend eight weeks of treatment with Rocephin 2 grams a day and doxy 100 milligrams b.i.d. He has already had a course of vancomycin which should be fine for the enterococcus in the urine. His creatinine is holding steady at about 2.1 so he does appear to have some chronic kidney disease which may be a factor here as well. I will follow him up if he stays but if he goes home which I have no objection to he should follow up with the outpatient primary and that regimen is non-nephrotoxic. DT: 11:34:29 TT: 11:42:00 Ref: [id number] - TID: [id number] MTDD
--- NOTE | 2024-12-18 13:23 | ESPR_ITS ---
Documentation for date of: 12/18/24 Subjective Subjective Interval history: Patient seen at bedside. No acute overnight events. Patient restarted on home diltiazem 60 mg daily. Infectious disease saw patient today and recommended 8 weeks of antibiotics with Rocephin 2 g daily and doxycycline 100 mg twice daily. Patient to undergo PICC placement today. Exam Vital Signs Temp Pulse Resp BP Pulse Ox O2 Del Method O2 Flow Rate 97.4 F 87 20 108/83 95 Room Air 3 12/18/24 12:00 12/18/24 12:00 12/18/24 12:00 12/18/24 12:00 12/18/24 12:00 12/18/24 12:00 12/17/24 16:00 Narrative Exam General: Alert and oriented x1, No apparent distress. Skin: Intact, Warm, no rashes. 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 HEENT: Normocephalic, Atraumatic. Normal neck range of motion, Supple. Trachea midline. Severe Hearing loss b/l. Respiratory: Lungs are clear to auscultation, Breath sounds are equal bilaterally with equal chest expansion. Cardiovascular: irregular rhythm, normal S1, S2, No murmurs. Distal pulses 2+. Abdomen: Abdomen non-distended, without erythema, or lesions. Normotensive bowel sounds x4. Percussion tympanic. Palpation soft, nontender in all four quadrants. No organomagely. Absent rigidity, guarding, or rebound. Musculoskeletal/Extremities: No erythema, swelling, tenderness of any joints. No edema of BLE. DP pulses +2/3 b/l. Patient cannot move his b/l extremities but can sense gross touch L3-S1 dermatomes b/l. Neurologic: CN II-XII grossly intact, no focal deficits, alert, following limited commands Objective Labs 12/19/24 05:24 12/19/24 05:24 Labs: Laboratory Results - last 24 hr 12/17/24 12/18/24 10:45 07:33 WBC 10.0 RBC 4.24 L Hgb 11.8 L Hct 36.5 L MCV 86 MCH 27.8 MCHC 32.3 RDW Std Deviation 57.3 H Plt Count 441 H Neut % (Auto) 89 H Lymph % (Auto) 5 L [place] % (Auto) 4 Eos % (Auto) 0 Baso % (Auto) 0 Neut # (Auto) 8.9 H Lymph # (Auto) 0.5 L [place] # (Auto) 0.4 Eos # (Auto) 0.0 Baso # (Auto) 0.0 Immature Gran # (Auto) 0.19 H Absolute Nucleated RBC 0.00 Immature Gran % 2 H Nucleated RBC % 0 PT 14.9 H INR 1.4 H APTT 35.3 Sodium 144 Potassium 4.1 Chloride 112 H Carbon Dioxide 18.4 L Anion Gap 14 BUN 30 H Creatinine 2.1 H Estim Creat Clear Calc 37.9 L eGFR 35 L BUN/Creatinine Ratio 14 Glucose 127 H Calculated Osmolality 295 Calcium 8.7 Corrected Calcium 9.4 Phosphorus 4.4 Magnesium 2.3 Total Bilirubin 0.5 AST 24 ALT 16 Alkaline Phosphatase 108 Total Protein 6.7 Albumin 3.1 L Globulin 3.6 H Albumin/Globulin Ratio 0.9 L Random Vancomycin 19.1 Coccidioides IgM Ab Negative ABG Interpretation ABG results: 12/15/24 23:50 ABG pH 7.41 ABG pCO2 30 L ABG pO2 112 H ABG HCO3 19 L ABG O2 Saturation 99 H ABG Base Excess -6 L Quality Measures Quality Measures VTE prophylaxis Assessment & Plan Assessment Current Active Medications: Generic Name Dose Route Start Last Admin Trade Name Freq PRN Reason Stop Dose Admin Acetaminophen 650 mg 12/16/24 00:05 12/16/24 18:25 Acetaminophen 325 Mg Tablet PO 01/15/25 00:04 650 mg Q6H PRN Administration Fever >100.4 or Pain (1-3) Atorvastatin Calcium 80 mg 12/16/24 21:00 12/17/24 21:15 Atorvastatin Calcium 20 Mg Tablet PO 01/15/25 20:59 80 mg HS [facility]ANNAH Administration Diltiazem HCl 60 mg 12/18/24 09:00 12/18/24 08:12 Diltiazem 30 Mg Tablet PO 01/17/25 08:59 60 mg QDAY [facility]AN[facility] Administration Diphenhydramine HCl 25 mg 12/16/24 21:33 12/16/24 21:59 Diphenhydramine 25 Mg Capsule PO 01/15/25 21:32 25 mg Q6HR PRN Administration Hives Doxycycline Hyclate 100 mg 12/18/24 21:00 Doxycycline 100 Mg Tablet PO 12/25/24 20:59 BID [facility]ANNAH Ceftriaxone Sodium/Dextrose 2 gm in 50 mls @ 100 mls/hr 12/18/24 11:00 12/18/24 12:04 Rocephin/D5w 2gm IV 12/25/24 10:59 100 mls/hr QDAY [facility]ANNA[facility] Administration Metoprolol Tartrate 50 mg 12/17/24 09:00 12/18/24 08:11 Metoprolol Tartrate 25 Mg Tablet PO 01/16/25 08:59 50 mg BID [facility] Administration Ondansetron HCl 4 mg 12/16/24 00:05 Ondansetron Inj 2 Mg/Ml Inj 2 Ml IVP 01/15/25 00:04 Q6H PRN NAUSEA OR VOMITING Protocol Pantoprazole Sodium 40 mg 12/17/24 21:00 12/18/24 08:10 Pantoprazole Inj 40 Mg Vial IVP 01/16/25 20:59 40 mg BID [facility]ANNAH Administration Sennosides 1 tab 12/16/24 09:00 12/18/24 08:11 Senna Tablet PO 01/15/25 08:59 1 tab QDAY [facility]ANNA[facility] Administration Protocol Plan 64-year-old past medical history of hypertension, atrial fibrillation, coronary artery disease with stent placement, and a stroke in May 2023 after being taken off of Eliquis for a bleeding stomach ulcer, who presented from a wound care center on 12/15/2024 for evaluation of low grade fever. Patient admitted for sepsis treatment. #Sepsis, resolving #osteomyelitis, chronic #Acute encephalopathy Likely source UTI (Enterococcus)vs chronic osteomyelitis of the T-spine ? CT T-spine showed large soft tissue infection in the posterior back, with osteomyelitis involving T12-L1 and L2 ? MRI lumbar spine showed soft tissue infection posterior to T12-L4, as well as osteomyelitis T12, L1, L2. No epidural abscess ? CXR showed no lobar pneumonia or pulmonary edema ? CTAP showed right base pneumonia with small Rt pleural effusion, and significant b/l renal scar formation. 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 -referral wound care -Watch for signs of infection closely, that is erythema, fevers, or regional pain #Anemia, normocytic 2/2 #Esophageal ulcers #Gastritis #Castorena's esophagus Initial presentation Hgb 7.4, MCV 88. Patient with hx of GI bleed/ulcers. Hemoglobin 11.8 today Iron levels low, ferritin high EGD performed 12/17 showed esophageal ulcers, mucosal changes consistent with Castorena's esophagus, gastritis -Watch Hgb closely, transfuse if <7 -Dr. Claros consulted, appreciate recs -Protonix 40 mg IV every 12 hours #ARIA on CKD #CKD stage [IIIb] Creatinine 2.1 elevated above baseline Cr range of [1.5-1.7]. ARIA likely to be prerenal in the setting of sepsis ?Renally dose meds, avoid overdiuresis, or nephrotoxins #Atrial fibrillation RVR #CAD with stents #CVA with residual deficit EKG at presentation revealed atrial fibrillation with RVR, Patient with history of chronic atrial fibrillation Patient apparently developed stroke after being taken off Eliquis for GI bleed. Patient received diltiazem 20 mg IV push followed by restarting home diltiazem 60 mg daily -Home Eliquis p.o. 5 mg twice daily HOLD. -Restarted home diltiazem 60 mg daily -Atorvastatin PO 80mg HS -Held Plavix as hemoglobin less than 7 -Keep Mg >2 and K+ >4 #Liver cirrhosis vs primary hepatocelluar disease Liver ultrasound on 10/18/2024 MELD score 19 which suggests 6% possibility of mortality in 3mo. 12/15/2024: PT 17.6 H, INR 1.7 H, and aPTT 35.2 -Monitor synthetic liver function with INR and platelet count daily Health Maintenance: Disposition: Telemetry Diet: Advance diet PPx DVT: Restart Eliquis 5 mg twice daily once PICC inserted PPx GI: Pantoprazole IVP 40mg twice daily Code Status: full Case discussed with my attending Dr. Owen, and senior resident, Dr. Shey Huff MD PGY-1 Attending Provider Attestation/Addendum I reviewed labs, imaging, EKG, home medications and prior available records. Face to face evaluation was performed by me. I have personally examined the patient and discussed assessment and plan with the IM team. I reviewed the resident note and agree with the plan with exceptions as below. Sepsis: Secondary to pneumonia versus infected ulcers, unlikely osteomyelitis CKD, baseline around 1.8 Atrial fibrillation with controlled ventricular rhythm Gastritis Consulted ID: Recommended Rocephin 2 g daily and doxycycline for 8 weeks Consulted IR for PICC line placement Ordered home health Status post EGD that showed gastritis and Castorena's esophagus Monitor kidney function. Avoid nephrotoxins Held Eliquis secondary to possible GI bleed. Continue diltiazem
[2024-12-18 14:40] LABS: Cocci Serology, IgG Negative (Negative)
[2024-12-18] MEDS: HEPARIN SOD LOCK SYR 100 UNIT/ML 500 UNIT STFIELD (15:15)
[2024-12-18] MEDS: LIDOCAINE INJ PF 1% 30 ML VIAL 20 ML INFL (15:15)
--- NOTE | 2024-12-18 15:35 | PC.SS ---
SS met with at bedside to discuss dc to SNF vs home with HH. Per , pt was at [facility] for 90 days from June to October 06, 2024 and then pt was hospitalized in October (10/16/2024-10/19/2024). SS spoke to Alexandra from [facility] who explained pt does not have coverage for SNF placement. Per Alexandra, pt has exhausted his days for SNF placement. states her family (nephew and sister) will help care for pt at home. Pt is requiring IV Rocephin 2grm 1X day until 02-12-25. SS has informed Transfer Nurse, Luma. Pt was established with [facility].
--- NOTE | 2024-12-18 15:38 | XR_ITS ---
Fluoroscopic and ultrasound-guided right internal jugular vein tunneled dual lumen central venous catheter placement. Date: 12/18/2024, 3:37 p.m. Indication: Osteomyelitis Fluoroscopy time: 1.5 minutes Dose: 15.68 mGy Technique: After a discussion of risks and benefits informed consent was obtained. Patient was brought to the angiography suite and placed supine on the exam table. Preliminary ultrasound evaluation demonstrated right internal jugular vein to be patent. This was targeted for catheter placement. The skin overlying the right IJ was cleaned and draped in normal sterile surgical fashion.20 cc's of 1% lidocaine was used for local anesthesia. Using ultrasound guidance access to the right internal jugular vein was obtained with a micropuncture needle. An 0.018 wire was advanced through the needle into the SVC and the needle was withdrawn. A 5 Telugu peel-away sheath was advanced over the wire, and the wire removed. The sheath was capped. A 5 cm subcutaneous tunnel was created from the right anterior lateral chest wall and exiting at the right IJ access site. Central venous catheter was attached to the tunneling device and pulled through the tunnel exiting the skin at the right IJ vein access site. The catheter was advanced through the peel-away sheath and the peel-away sheath was removed. Distal catheter tip was appropriately positioned at the cavoatrial junction. Both ports flushed and aspirated easily. IJ access site was closed with 2-0 Vicryl suture There were no immediate complications. Impression: Successful placement of right IJ vein tunneled central venous catheter as above. Catheter is ready for use.
[2024-12-18] MEDS: ASCORBIC ACID 250 MG TABLET 500 MG PO (17:09)
[2024-12-18] MEDS: ZINC SULFATE 220 MG CAPSULE PO (17:09)
[2024-12-18] MEDS: MULTIVITAMINS TABLET 1 TAB PO (17:09)
--- NOTE | 2024-12-18 19:14 | ESPR_ITS ---
Documentation for date of: 12/18/24 Subjective Subjective Interval history: Patient evaluated Upper endoscopy showed distal esophageal ulcers Hemoglobin hematocrit 11.5 and 34.2 Exam Vital Signs Temp Pulse Resp BP Pulse Ox O2 Del Method O2 Flow Rate 97.4 F 87 18 147/79 H 100 Nasal Cannula 2 12/18/24 12:00 12/18/24 16:02 12/18/24 16:02 12/18/24 16:02 12/18/24 16:02 12/18/24 16:02 12/18/24 16:02 Objective Labs 12/18/24 07:33 12/18/24 07:33 Labs: Laboratory Results - last 24 hr 12/17/24 12/18/24 10:45 07:33 WBC 10.0 RBC 4.24 L Hgb 11.8 L Hct 36.5 L MCV 86 MCH 27.8 MCHC 32.3 RDW Std Deviation 57.3 H Plt Count 441 H Neut % (Auto) 89 H Lymph % (Auto) 5 L [place] % (Auto) 4 Eos % (Auto) 0 Baso % (Auto) 0 Neut # (Auto) 8.9 H Lymph # (Auto) 0.5 L [place] # (Auto) 0.4 Eos # (Auto) 0.0 Baso # (Auto) 0.0 Immature Gran # (Auto) 0.19 H Absolute Nucleated RBC 0.00 Immature Gran % 2 H Nucleated RBC % 0 PT 14.9 H INR 1.4 H APTT 35.3 Sodium 144 Potassium 4.1 Chloride 112 H Carbon Dioxide 18.4 L Anion Gap 14 BUN 30 H Creatinine 2.1 H Estim Creat Clear Calc 37.9 L eGFR 35 L BUN/Creatinine Ratio 14 Glucose 127 H Calculated Osmolality 295 Calcium 8.7 Corrected Calcium 9.4 Phosphorus 4.4 Magnesium 2.3 Total Bilirubin 0.5 AST 24 ALT 16 Alkaline Phosphatase 108 Total Protein 6.7 Albumin 3.1 L Globulin 3.6 H Albumin/Globulin Ratio 0.9 L Random Vancomycin 19.1 Coccidioides IgG Ab Negative Impressions Impression: Distal esophageal ulcers Gastritis Continue current management ABG Interpretation ABG results: 12/15/24 23:50 ABG pH 7.41 ABG pCO2 30 L ABG pO2 112 H ABG HCO3 19 L ABG O2 Saturation 99 H ABG Base Excess -6 L Assessment & Plan A&P Narrative ok christel treat empirically with rocephin and po doxyfor 8 weeks overall from date of surgery no pos cx here or in radha by report. fever initially noted 12/15 then gone ckd so vanco problematic for halfway use likely to need a picc line. repeated rx of limited value so if this fails, doing it again not generally advised. ok to give iv rx for 8 weeks for back. but if wound not improved, more iv rx will not heal it. prior vanco would have addressed the urine so more is not needed Time Spent With Patient Time: Total time spent is greater than 50% in coordination of care (as documented) at patient's floor/unit and/or counseling patient:
[2024-12-18] MEDS: SOD HYPOCHLORITE 1/4 STR 473 ML BTL TOP (20:49)
[2024-12-19] VITALS: BP 141/96; PULSE 93; PULSE 94; RESP 17; TEMP 36.2; O2SAT 100
[2024-12-19 04:00] VITALS: BP 164/85; PULSE 82; PULSE 87; RESP 17; TEMP 36.4; O2SAT 100
[2024-12-19 05:50] VITALS: BMI 30.8
[2024-12-19 06:15] LABS: Basophils # (Auto) 0.0 Thou/mm3 (0.0-0.2); Basophils % (Auto) 0 % (0-2.5); Eosinophils # (Auto) 0.3 Thou/mm3 (0.0-0.5); Eosinophils % (Auto) 3 % (0-10); Hematocrit 31.4 % (41.0-53.0); Hemoglobin 10.0 g/dL (13.5-16.0); Immature Granulocytes Auto 0.12 Thou/mm3 (0.00-0.00); Lymphocytes # (Auto) 0.5 Thou/mm3 (1.0-4.8); Lymphocytes % (Auto) 5 % (10-50); Mean Corpuscular HGB Conc 31.8 g/dl (31.0-37.0); Mean Corpuscular Hemoglobin 27.9 pg (25.0-35.0); Mean Corpuscular Volume 88 fL (80-100); Monocytes # (Auto) 0.4 Thou/mm3 (0.0-0.8); Monocytes % (Auto) 4 % (0-12); Neutrophils # (Auto) 8.1 Thou/mm3 (1.8-7.7); Neutrophils % (Auto) 87 % (37-80); Nucleated Red Blood Cell # 0.00 Thou/mm3 (0.00-0.00); Nucleated Red Blood Cell % 0 /100 WBC (0); Platelet Count 428 Thou/mm3 (140-440); RDW Standard Deviation 58.4 fL (35.1-43.9); Red Blood Count 3.59 Miln/mm3 (4.50-5.90); White Blood Count 9.3 Thou/mm3 (3.8-10.6)
[2024-12-19 06:22] LABS: INR 1.3 (0.9-1.3); Partial Thromboplastin Time 31.7 Seconds (22.0-36.0); Prothrombin Time 13.6 Seconds (9.0-12.2)
[2024-12-19 06:30] LABS: Alanine Aminotransferase 18 U/L (10-49); Albumin, Serum 3.1 gm/dL (3.4-4.8); Albumin/Globulin Ratio 0.9 (1.2-2.2); Alkaline Phosphatase 102 U/L (46-116); Anion Gap 13 (7-16); Aspartate Amino Transferase 21 U/L (0-34); BUN/Creatinine Ratio 16 Ratio (12-20); Bilirubin,Total 0.4 mg/dL (0.3-1.2); Blood Urea Nitrogen 33 mg/dL (9-23); Calcium 9.0 mg/dL (8.3-10.6); Calcium (Corrected) 9.7 mg/dL (8.5-10.1); Carbon Dioxide 19.7 mMol/L (20.0-31.0); Chloride 113 mMol/L (98-107); Creatinine (Component) 2.1 mg/dL (0.6-1.3); Estimated Creatinine Clearance 37.9 mL/min (>60); Globulin 3.5 gm/dL (2.3-3.5); Glucose 110 mg/dL (74-106); Magnesium 2.1 mg/dL (1.6-2.6); Osmolality,Calculated 298 (275-295); Phosphorous 4.1 mg/dL (2.4-5.1); Potassium 3.7 mMol/L (3.4-5.1); Sodium 146 mMol/L (136-145); Total Protein 6.6 gm/dL (5.7-8.2); eGFR 35 See Note
[2024-12-19] MEDS: cefTRIAXone/D5w 2gm 2 GM/50 ML BAG IV (07:58)
[2024-12-19] MEDS: POTASSIUM CHL 10 mEq IVPB 10 MEQ/100 ML BAG 100 MEQ IV ×4 (07:59→12:52)
[2024-12-19] MEDS: APIXABAN 2.5 MG TABLET 5 MG PO (07:59)
[2024-12-19 08:00] VITALS: BP 149/87; PULSE 92; PULSE 96; RESP 26; TEMP 36.4; O2SAT 100
[2024-12-19] MEDS: ASCORBIC ACID 250 MG TABLET 500 MG PO (08:00)
[2024-12-19] MEDS: METOPROLOL TARTRATE 25 MG TABLET 50 MG PO (08:00)
[2024-12-19] MEDS: ZINC SULFATE 220 MG CAPSULE PO (08:00)
[2024-12-19 08:01] VITALS: BP 149/87; PULSE 96
[2024-12-19] MEDS: DILTIAZEM 30 MG TABLET 60 MG PO (08:01)
[2024-12-19] MEDS: MULTIVITAMINS TABLET 1 TAB PO (08:01)
[2024-12-19] MEDS: DOXYCYCLINE 100 MG TABLET PO ×2 (08:02→09:20)
[2024-12-19] MEDS: SOD HYPOCHLORITE 1/4 STR 473 ML BTL TOP (09:21)
--- NOTE | 2024-12-19 10:31 | PD.RESDS ---
Planned Discharge Date 12/19/24 DS: Providers Provider Date of admission: 12/15/24 23:22 Primary care physician: Wilfredo Navarro MD Admitting Provider: Suzanna Bellamy DO Attending Provider on Admission: Ahsan Owen MD Consults: 12/16/24 00:17 Referral Wound Care Stat Comment: 12/16/24 01:18 Referral Speech Therapy Routine Comment: 12/16/24 02:46 Referral Wound Care Routine Comment: PRESSURE INJURY TO BACK 12/16/24 07:06 Consult to Gastroenterology Urgent Comment: GI Bleed Consulting Provider: Nadia Claros 12/17/24 10:42 Referral Speech Therapy Stat Comment: 12/17/24 10:51 Consult to Infectious Diseases Routine Comment: Consulting Provider: Charles Tapia 12/18/24 14:58 Referral Nutritional Services Routine Comment: Wounds Attending Provider on DC: Giuliano Huff MD Discharging Provider: Giuliano Huff MD Hospital Course Hospital Course Hospital course: Patient evaluated Upper endoscopy showed distal esophageal ulcers Hemoglobin hematocrit 11.5 and 34.2 Time Spent with Patient Time attestation: Total time spent providing and/or coordinating discharge services: Home Health Home Health Referral Orders: 12/18/24 15:03 Home Health Referral Routine Reason For Exam: IV antibiotics, wound care, home PT Home-Bound The patient must either because of illness or injury, need the aid of supportive devices such as crutches, canes, wheelchairs, and walkers; the use of special transportation; or the assistance of another person in order to leave their place of residence; OR have a condition such that leaving his or her home is medically contraindicated. In addition, the patient also meets the following criteria: patient is normally unable to leave the home and leaving home requires considerable taxing effort. Addendum to Home Health Certification Practitioner's Certification: I certify that the patient has been under my care in the hospital and the care of attending physician (see below). We had a [id number] encounter on (see date below). My clinical findings indicate that the patient is home bound per the above criteria and the Home Health Services noted in these orders are medically necessary. The primary reason for the izaz-of-ymay encounter is related to the fact that the patient requires home health services. Date Certifying Akrh-zw-Dovv Physician Encounter: 12/15/24 Physician's Name who will Assume Oversight for Services: Wilfredo Navarro Physician's Phone No.who will Assume Oversight for Service: GOVERNMENT PROGRAM MANAGER - Community Resources: Yes PT to Evaluate: Yes PT to evaluate and provide a treatmnet plan to increase patient's mobility and strength. Wound Care: Yes Home Health RN - Wound Care Order: Decubitus ulcers on back. See wound care team recommendations IV Therapy: Yes IV Medication: Ceftriaxone IV Dose: 2 gm IV Frequency: Daily IV Stop Date: 02/12/25 Discontinue PICC Line Once Treatment Complete: Yes RN Safety Evaluation: Yes RN to evaluate and create a plan of care that will produce positive outcomes. Palliative Treatment: No Palliative treatment and evaluate the need for hospice. Home Health Aide - Personal Care: Yes Home Health Aide to assist with any ADL's. Exam Vital Signs Temp Pulse Resp BP Pulse Ox O2 Del Method O2 Flow Rate 97.6 F 96 26 H 149/87 H 100 Room Air 2 12/19/24 08:00 12/19/24 08:01 12/19/24 08:00 12/19/24 08:01 12/19/24 08:00 12/19/24 08:00 12/18/24 20:00 Discharge Plan Plan Patient Disposition: Home w/HOME HEALTH Care Plan Goals: Wound Care: 1) Stage 4 to medial upper back: irrigate with 1/4 st dakins solution, pat dry. Fill wound bed including undermining with calcium algiante. Skin prep to wound edges and secure with allyven dressing BID/PRN Side to side repositioning with no pressure (pillows or wedges) over wound site. Negative heel pressure bilaterally at all times. 2) Stage 2 to sacrum. Scattered stage 3 to left back/flank: cleanse with wound cleanser, pat dry. Apply skin prep and cover with allevyn dressing every other day and PRN for falling off or soiling. 3) Generalized scattered excoriations: skin moisturizing cream after bathing. Prescriptions/Referrals Prescriptions/Med Rec: New ceftriaxone in dextrose,iso-os 2 gram/50 mL Piggyback 2 g IV QDAY 56 Days Qty: 24 2RF Rx Instructions: To complete regimen on 02/12/2025 - eight week course doxycycline hyclate 100 mg Tablet 100 mg PO BID 56 Days Qty: 112 0RF Rx Instructions: To complete regimen on 02/12/2025 - eight week course No Action pantoprazole 40 mg Tablet,Delayed Release (Dr/Ec) 40 mg PO BID Qty: 30 0RF atorvastatin 40 mg tablet 40 mg PO QDAY Qty: 30 0RF Eliquis 5 mg tablet 5 mg PO BID Qty: 30 0RF isosorbide mononitrate 30 mg Tablet Extended Release 24 Hr 60 mg PO QDAY clopidogrel 75 mg Tablet 75 mg PO QDAY metoprolol tartrate 25 mg Tablet 50 mg PO BID diltiazem HCl 60 mg capsule,extended release 12 hr 60 mg PO QDAY famotidine 20 mg tablet 20 mg PO QDAY Patient Comments: TAKE 1 TABLET BY MOUTH EVERY DAY AT BEDTIME NEEDED ferrous sulfate 325 mg (65 mg iron) tablet 325 mg PO QDAY Patient Comments: TAKE 1 TABLET BY MOUTH TWICE A DAY Referrals: Wilfredo Navarro MD [Primary Care Provider, Family Practice] - In 1 week Patient/Caregiver Discharge Instructions Print Language: Arabic Stand Alone Forms: Caterina Award Info., Patient Portal Info Letter
[2024-12-19 12:00] VITALS: BP 153/102; PULSE 73; PULSE 79; RESP 15; TEMP 36.6; O2SAT 100
--- NOTE | 2024-12-19 14:16 | PD.RESPRO ---
Documentation for date of: 12/19/24 Exam Vital Signs Temp Pulse Resp BP Pulse Ox O2 Del Method O2 Flow Rate 97.8 F 73 15 153/102 H 100 Room Air 2 12/19/24 12:00 12/19/24 12:00 12/19/24 12:00 12/19/24 12:00 12/19/24 12:00 12/19/24 12:00 12/18/24 20:00 Objective Labs 12/19/24 05:24 12/19/24 05:24 Labs: Laboratory Results - last 24 hr 12/17/24 12/19/24 10:45 05:24 WBC 9.3 RBC 3.59 L Hgb 10.0 L Hct 31.4 L MCV 88 MCH 27.9 MCHC 31.8 RDW Std Deviation 58.4 H Plt Count 428 Neut % (Auto) 87 H Lymph % (Auto) 5 L [place] % (Auto) 4 Eos % (Auto) 3 Baso % (Auto) 0 Neut # (Auto) 8.1 H Lymph # (Auto) 0.5 L [place] # (Auto) 0.4 Eos # (Auto) 0.3 Baso # (Auto) 0.0 Immature Gran # (Auto) 0.12 H Absolute Nucleated RBC 0.00 Immature Gran % 1 H Nucleated RBC % 0 PT 13.6 H INR 1.3 APTT 31.7 Sodium 146 H Potassium 3.7 Chloride 113 H Carbon Dioxide 19.7 L Anion Gap 13 BUN 33 H Creatinine 2.1 H Estim Creat Clear Calc 37.9 L eGFR 35 L BUN/Creatinine Ratio 16 Glucose 110 H Calculated Osmolality 298 H Calcium 9.0 Corrected Calcium 9.7 Phosphorus 4.1 Magnesium 2.1 Total Bilirubin 0.4 AST 21 ALT 18 Alkaline Phosphatase 102 Total Protein 6.6 Albumin 3.1 L Globulin 3.5 Albumin/Globulin Ratio 0.9 L Coccidioides IgG Ab Negative ABG Interpretation ABG results: 12/15/24 23:50 ABG pH 7.41 ABG pCO2 30 L ABG pO2 112 H ABG HCO3 19 L ABG O2 Saturation 99 H ABG Base Excess -6 L Quality Measures Quality Measures VTE prophylaxis Assessment & Plan Assessment Current Active Medications: Generic Name Dose Route Start Last Admin Trade Name Freq PRN Reason Stop Dose Admin Acetaminophen 650 mg 12/16/24 00:05 12/16/24 18:25 Acetaminophen 325 Mg Tablet PO 01/15/25 00:04 650 mg Q6H PRN Administration Fever >100.4 or Pain (1-3) Apixaban 5 mg 12/19/24 09:00 12/19/24 07:59 Apixaban 2.5 Mg Tablet PO 01/18/25 08:59 5 mg BID HANNAH Administration Ascorbic Acid 500 mg 12/18/24 14:30 12/19/24 08:00 Ascorbic Acid 250 Mg Tablet PO 01/17/25 14:29 500 mg BID HANNAH Administration Atorvastatin Calcium 80 mg 12/16/24 21:00 12/18/24 20:56 Atorvastatin Calcium 20 Mg Tablet PO 01/15/25 20:59 Not Given HS HANNAH Diltiazem HCl 60 mg 12/18/24 09:00 12/19/24 08:01 Diltiazem 30 Mg Tablet PO 01/17/25 08:59 60 mg QDAY HANNAH Administration Diphenhydramine HCl 25 mg 12/16/24 21:33 12/16/24 21:59 Diphenhydramine 25 Mg Capsule PO 01/15/25 21:32 25 mg Q6HR PRN Administration Hives Doxycycline Hyclate 100 mg 12/18/24 21:00 12/19/24 09:20 Doxycycline 100 Mg Tablet PO 12/25/24 20:59 100 mg BID HANNAH Administration Ceftriaxone Sodium/Dextrose 2 gm in 50 mls @ 100 mls/hr 12/18/24 11:00 12/19/24 07:58 Rocephin/D5w 2gm IV 12/25/24 10:59 100 mls/hr QDAY HANNAH Administration Metoprolol Tartrate 50 mg 12/17/24 09:00 12/19/24 08:00 Metoprolol Tartrate 25 Mg Tablet PO 01/16/25 08:59 50 mg BID HANNAH Administration Multivitamins 1 tab 12/18/24 14:30 12/19/24 08:01 Multivitamins Tablet PO 01/17/25 14:29 1 tab QDAY HANNAH Administration Ondansetron HCl 4 mg 12/16/24 00:05 Ondansetron Inj 2 Mg/Ml Inj 2 Ml IVP 01/15/25 00:04 Q6H PRN NAUSEA OR VOMITING Protocol Pantoprazole Sodium 40 mg 12/17/24 21:00 12/19/24 08:00 Pantoprazole Inj 40 Mg Vial IVP 01/16/25 20:59 40 mg BID HANNAH Administration Sennosides 1 tab 12/16/24 09:00 12/19/24 08:01 Senna Tablet PO 01/15/25 08:59 1 tab QDAY HANNAH Administration Protocol Sodium Hypochlorite 473 ml 12/18/24 21:00 12/19/24 09:21 Sod Hypochlorite 1/4 Str 473 Ml Btl TOP 01/17/25 20:59 1 applicatio BID HANNAH Administration Zinc Sulfate 220 mg 12/18/24 14:30 12/19/24 08:00 Zinc Sulfate 220 Mg Capsule PO 01/01/25 14:29 220 mg QDAY HANNAH Administration
--- NOTE | 2024-12-19 14:55 | ESDS_ITS ---
Planned Discharge Date 12/19/24 DS: Providers Provider Date of admission: 12/15/24 23:22 Primary care physician: Wilfredo Navarro MD Admitting Provider: Suzanna Bellamy DO Attending Provider on Admission: Ahasn Owen MD Consults: 12/16/24 00:17 Referral Wound Care Stat Comment: 12/16/24 01:18 Referral Speech Therapy Routine Comment: 12/16/24 02:46 Referral Wound Care Routine Comment: PRESSURE INJURY TO BACK 12/16/24 07:06 Consult to Gastroenterology Urgent Comment: GI Bleed Consulting Provider: Nadia Claros 12/17/24 10:42 Referral Speech Therapy Stat Comment: 12/17/24 10:51 Consult to Infectious Diseases Routine Comment: Consulting Provider: Charles Tapia 12/18/24 14:58 Referral Nutritional Services Routine Comment: Wounds Attending Provider on DC: Ahsan Owen MD Discharging Provider: Ahsan Owen MD DS: Diagnosis Problem List Completed Was Problem List Reviewed/Reconciled?: Yes Hospital Course Hospital Course Hospital course: 64-year-old M past medical history of hypertension, atrial fibrillation, coronary artery disease with stent placement, and a stroke in May 2023 after being taken off of Eliquis for a bleeding stomach ulcer, who presented from a wound care center on 12/15/2024 for evaluation of low grade fever. Patient admitted for sepsis treatment. ED course: The patient presented with sepsis upon arrival, evidenced by a significantly elevated heart rate (HR 172), fever (T 101.5?F), and hypotension (BP 115/95), alongside leukocytosis (WBC 18.7) and lactic acidosis (LA 4.7), which improved to 1.2 after a 2 L L-R crystalloid bolus and initial broad-spectrum antibiotics (Zosyn and Vancomycin). Diagnostic imaging confirmed a severe soft tissue infection in the posterior back, extending from T12 to L4 with osteomyelitis affecting the T12, L1, and L2 vertebrae, though no epidural abscess was present on MRI; additionally, the CT of the abdomen and pelvis revealed an underlying right base pneumonia with a small pleural effusion and pre-existing bilateral renal scarring. Hospital course: The patient's hospital course focused on managing sepsis and its underlying sources. Infectious Disease consultation determined the likely etiology to be a combination of a urinary tract infection (based on abnormal urinalysis), existing CKD stages III-IV, and the extensive posterior back infection (osteomyelitis and soft tissue). ID recommended a prolonged 8-week course of antibiotics, specifically Ceftriaxone (2 g daily) and Doxycycline (100 mg twice daily). To facilitate this long-term treatment, the patient successfully underwent placement of a tunneled central venous catheter in the right internal jugular vein on 12/18. Concurrent issues included Atrial Fibrillation with Rapid Ventricular Response, which was likely exacerbated by the underlying sepsis. The patient's home medications, Diltiazem and Metoprolol, were restarted for rate control. Anticoagulation with Apixaban (5 mg twice daily) was continued as part of the established plan. Furthermore, a GI workup with EGD on 12/17 revealed esophageal ulcers, gastritis, and mucosal changes consistent with Castorena's esophagus. Discharge instructions: - Please continue IV ceftriaxone 2 g every day along with doxycycline 100 mg tablet by mouth twice a day for total of 8 weeks for chronic osteomyelitis: End date of 02/12/2025 - Please take vitamin C, multivitamin and zinc for proper wound care and nutritional support Stop taking famotidine and iron supplements; continue all other home medications as prescribed - Please follow-up with your robot operator within 1 to 2 weeks of discharge - Please follow-up with your PCP within 1 week of discharge or follow-up at the - [facility] [place] [address] [place] [address] If your symptoms worsen or if you start to develop new fever, chest pain, shortness of breath or severe back pain - please come back to the ED immediately. Wound Care: 1) Stage 4 to medial upper back: irrigate with 1/4 [address] dakins solution, pat dry. Fill wound bed including undermining with calcium algiante. Skin prep to wound edges and secure with allyven dressing BID/PRN Side to side repositioning with no pressure (pillows or wedges) over wound site. Negative heel pressure bilaterally at all times. 2) Stage 2 to sacrum. Scattered stage 3 to left back/flank: cleanse with wound cleanser, pat dry. Apply skin prep and cover with allevyn dressing every other day and PRN for falling off or soiling. 3) Generalized scattered excoriations: skin moisturizing cream after bathing. Admission diagnoses: #Sepsis, resolved #osteomyelitis, chronic #Acute encephalopathy #Decubitus Ulcer #Anemia, normocytic 2/2 #Esophageal ulcers #Gastritis #Castorena's esophagus #ARIA on CKD #CKD stage [IIIb] #Atrial fibrillation RVR #CAD with stents #CVA with residual deficit #Liver cirrhosis vs primary hepatocelluar disease Case discussed with my attending Dr. Owen, and senior resident, Dr. Shey Huff MD PGY-1 Status at Discharge Overall status at discharge: patient is progressing back to baseline Time Spent with Patient Time attestation: Total time spent providing and/or coordinating discharge services: Time spent: Greater than 30 minutes Home Health Home Health Referral Orders: 12/18/24 15:03 Home Health Referral Routine Reason For Exam: IV antibiotics, wound care, home PT Home-Bound The patient must either because of illness or injury, need the aid of supportive devices such as crutches, canes, wheelchairs, and walkers; the use of special transportation; or the assistance of another person in order to leave their place of residence; OR have a condition such that leaving his or her home is medically contraindicated. In addition, the patient also meets the following criteria: patient is normally unable to leave the home and leaving home requires considerable taxing effort. Addendum to Home Health Certification Practitioner's Certification: I certify that the patient has been under my care in the hospital and the care of attending physician (see below). We had a [id number]-[id number] encounter on (see date below). My clinical findings indicate that the patient is home bound per the above criteria and the Home Health Services noted in these orders are medically necessary. The primary reason for the jime-py-prnx encounter is related to the fact that the patient requires home health services. Date Certifying Rkxi-dj-Nvmh Physician Encounter: 12/15/24 Physician's Name who will Assume Oversight for Services: Wilfredo Navarro Physician's Phone No.who will Assume Oversight for Service: MACHINIST FIRST CLASS - Community Resources: Yes PT to Evaluate: Yes PT to evaluate and provide a treatmnet plan to increase patient's mobility and strength. Wound Care: Yes Home Health RN - Wound Care Order: Decubitus ulcers on back. See wound care team recommendations IV Therapy: Yes IV Medication: Ceftriaxone IV Dose: 2 gm IV Frequency: Daily IV Stop Date: 02/12/25 Discontinue PICC Line Once Treatment Complete: Yes RN Safety Evaluation: Yes RN to evaluate and create a plan of care that will produce positive outcomes. Palliative Treatment: No Palliative treatment and evaluate the need for hospice. Home Health Aide - Personal Care: Yes Home Health Aide to assist with any ADL's. Exam Vital Signs Temp Pulse Resp BP Pulse Ox O2 Del Method O2 Flow Rate 97.8 F 73 15 153/102 H 100 Room Air 2 12/19/24 12:00 12/19/24 12:00 12/19/24 12:00 12/19/24 12:12/19/24 12:12/19/24 12:12/18/24 20:00 Narrative Exam General: Alert and oriented x1, No apparent distress. Skin: Intact, Warm, no rashes. 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 HEENT: Normocephalic, Atraumatic. Normal neck range of motion, Supple. Trachea midline. Severe Hearing loss b/l. Respiratory: Lungs are clear to auscultation, Breath sounds are equal bilaterally with equal chest expansion. Cardiovascular: irregular rhythm, normal S1, S2, No murmurs. Distal pulses 2+. Abdomen: Abdomen non-distended, without erythema, or lesions. Normotensive bowel sounds x4. Percussion tympanic. Palpation soft, nontender in all four quadrants. No organomagely. Absent rigidity, guarding, or rebound. Musculoskeletal/Extremities: No erythema, swelling, tenderness of any joints. No edema of BLE. DP pulses +2/3 b/l. Patient cannot move his b/l extremities but can sense gross touch L3-S1 dermatomes b/l. Neurologic: CN II-XII grossly intact, no focal deficits, alert, following limited commands Discharge Plan Plan Patient Disposition: Home w/HOME HEALTH Care Plan Goals: Please continue IV ceftriaxone 2 g every day along with doxycycline 100 mg tablet by mouth twice a day for total of 8 weeks for chronic osteomyelitis: End date of 02/12/2025 Please take vitamin C, multivitamin and zinc for proper wound care and nutritional support Stop taking famotidine and iron supplements; continue all other home medications as prescribed Please follow-up with your robot operator within 1 to 2 weeks of discharge Please follow-up with your PCP within 1 week of discharge or follow-up at the [facility] [address] [place] [address] If your symptoms worsen or if you start to develop new fever, chest pain, shortness of breath or severe back pain - please come back to the ED immediately. Wound Care: 1) Stage 4 to medial upper back: irrigate with 1/4 [address] dakins solution, pat dry. Fill wound bed including undermining with calcium algiante. Skin prep to wound edges and secure with allyven dressing BID/PRN Side to side repositioning with no pressure (pillows or wedges) over wound site. Negative heel pressure bilaterally at all times. 2) Stage 2 to sacrum. Scattered stage 3 to left back/flank: cleanse with wound cleanser, pat dry. Apply skin prep and cover with allevyn dressing every other day and PRN for falling off or soiling. 3) Generalized scattered excoriations: skin moisturizing cream after bathing. Prescriptions/Referrals Prescriptions/Med Rec: New ceftriaxone in dextrose,iso-os 2 gram/50 mL Piggyback 2 g IV QDAY 56 Days Qty: 24 2RF Rx Instructions: To complete regimen on 02/12/2025 - eight week course doxycycline hyclate 100 mg Tablet 100 mg PO BID 56 Days Qty: 112 0RF Rx Instructions: To complete regimen on 02/12/2025 - eight week course ascorbic acid (vitamin C) [Vitamin C] 250 mg Tablet 500 mg PO BID 30 Days Qty: 120 0RF multivitamin with folic acid [Tab-A-Lissette] 400 mcg Tablet 1 tab PO QDAY 30 Days Qty: 30 0RF zinc sulfate 50 mg zinc (220 mg) Capsule 220 mg PO QDAY 20 Days Qty: 88 0RF Continued atorvastatin 40 mg tablet 40 mg PO QDAY Qty: 30 0RF Eliquis 5 mg tablet 5 mg PO BID Qty: 30 0RF isosorbide mononitrate 30 mg Tablet Extended Release 24 Hr 60 mg PO QDAY clopidogrel 75 mg Tablet 75 mg PO QDAY metoprolol tartrate 25 mg Tablet 50 mg PO BID diltiazem HCl 60 mg capsule,extended release 12 hr 60 mg PO QDAY pantoprazole 40 mg Tablet,Delayed Release (Dr/Ec) 40 mg PO BID Qty: 30 0RF Discontinued famotidine 20 mg tablet 20 mg PO QDAY Patient Comments: TAKE 1 TABLET BY MOUTH EVERY DAY AT BEDTIME NEEDED ferrous sulfate 325 mg (65 mg iron) tablet 325 mg PO QDAY Patient Comments: TAKE 1 TABLET BY MOUTH TWICE A DAY Referrals: Wilfredo Navarro MD [Primary Care Provider, Family Practice] - In 1 week Patient/Caregiver Discharge Instructions Discharge Activity: activity as tolerated and resume usual activities Education Materials: Sepsis, Osteomyelitis Dc Print Language: Armenian Stand Alone Forms: Caterina Award Info., Patient Portal Info Letter Discharge Order Discharge Orders: Discharge (Routine); Ordered 12/19/24 Ordered By: Brandon Kat Quality Discharge Quality Measures VTE prophylaxis Attestestation MD Attestation I reviewed labs, imaging, EKG, home medications and prior available records. Face to face evaluation was performed by me. I have personally examined the patient and discussed assessment and plan with the IM team. I reviewed the resident note and agree with the plan with exceptions as below. Sepsis: Secondary to pneumonia versus infected ulcers, unlikely osteomyelitis CKD, baseline around 1.8 Atrial fibrillation with controlled ventricular rhythm Gastritis Consulted ID: Recommended Rocephin 2 g daily and doxycycline for 8 weeks Consulted IR for PICC line placement. Placed a tunneled line inserted Ordered home health for the IV antibiotics Status post EGD that showed gastritis and Castorena's esophagus. Continue PPI Monitor kidney function. Avoid nephrotoxins Resumed Eliquis. Continue diltiazem Time spent is 40 minutes. More than 50% of the time was spent on patient education and coordination of care.
--- NOTE | 2024-12-19 14:57 | PC.CM ---
Patient has been accepted by [facility] and [facility]. Patient will be discharged today. I updated DR. Kat and Daphne PICKARD.
[2024-12-19 16:00] VITALS: BP 159/89; PULSE 105; PULSE 96; RESP 16; TEMP 36.2; O2SAT 100
--- NOTE | 2024-12-19 16:31 | PC.SS ---
SS attempted to setup gurney transport with [facility] but was unsuccessful. Per [employer] underwriting account representative, Angela ferrara are no records found in the eligibility portal. SS setup gurney transport with [facility] ([phone]) for 5:30pm. Pt is returning home with HH.
--- NOTE | 2024-12-19 20:51 | PD.IMPROG ---
Documentation for date of: 12/19/24 Subjective Subjective Interval history: Late entry for the note Case discussed with internal medicine team downward trending hemoglobin at the time of discharge outpatient CBC should be followed along with a PPI twice daily Exam Vital Signs Temp Pulse Resp BP Pulse Ox O2 Del Method O2 Flow Rate 97.1 F 105 H 16 159/89 H 100 Room Air 2 12/19/24 16:00 12/19/24 16:00 12/19/24 16:00 12/19/24 16:00 12/19/24 16:00 12/19/24 16:00 12/18/24 20:00 Objective Labs 12/19/24 05:24 12/19/24 05:24 Labs: Laboratory Results - last 24 hr 12/19/24 05:24 WBC 9.3 RBC 3.59 L Hgb 10.0 L Hct 31.4 L MCV 88 MCH 27.9 MCHC 31.8 RDW Std Deviation 58.4 H Plt Count 428 Neut % (Auto) 87 H Lymph % (Auto) 5 L Kendall % (Auto) 4 Eos % (Auto) 3 Baso % (Auto) 0 Neut # (Auto) 8.1 H Lymph # (Auto) 0.5 L Kendall # (Auto) 0.4 Eos # (Auto) 0.3 Baso # (Auto) 0.0 Immature Gran # (Auto) 0.12 H Absolute Nucleated RBC 0.00 Immature Gran % 1 H Nucleated RBC % 0 PT 13.6 H INR 1.3 APTT 31.7 Sodium 146 H Potassium 3.7 Chloride 113 H Carbon Dioxide 19.7 L Anion Gap 13 BUN 33 H Creatinine 2.1 H Estim Creat Clear Calc 37.9 L eGFR 35 L BUN/Creatinine Ratio 16 Glucose 110 H Calculated Osmolality 298 H Calcium 9.0 Corrected Calcium 9.7 Phosphorus 4.1 Magnesium 2.1 Total Bilirubin 0.4 AST 21 ALT 18 Alkaline Phosphatase 102 Total Protein 6.6 Albumin 3.1 L Globulin 3.5 Albumin/Globulin Ratio 0.9 L Impressions Impression: Distal esophageal ulcerations Posthemorrhagic anemia Plan Discharge planning as in the HPI ABG Interpretation ABG results: 12/15/24 23:50 ABG pH 7.41 ABG pCO2 30 L ABG pO2 112 H ABG HCO3 19 L ABG O2 Saturation 99 H ABG Base Excess -6 L Assessment & Plan A&P Narrative ok christel treat empirically with rocephin and po doxyfor 8 weeks overall from date of surgery no pos cx here or in radha by report. 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 repeated rx of limited value so if this fails, doing it again not generally advised. ok to give iv rx for 8 weeks for back. but if wound not improved, more iv rx will not heal it. prior vanco would have addressed the urine so more is not needed Time Spent With Patient Time: Total time spent is greater than 50% in coordination of care (as documented) at patient's floor/unit and/or counseling patient:
== END 2024-12-19 17:50 | disposition home health service (06) | DRG 871 ==
LOC: SERX 21:03 → SERHOLD 22:31 → S2NX 12-16 00:53
PROVIDERS: Nurse Practitioner Family; Specialist; Student in an Organized Health Care Education/Training Program; Admitting Provider Internal Medicine; Emergency Provider Emergency Medicine; PCP Family Medicine; Visit Provider Student in an Organized Health Care Education/Training Program
PROC: 0DJ08ZZ Inspection of Upper Intestinal Tract, Via Natural or Artificial Opening Endoscopic (ICD-10-PCS; CPT 43239; principal; 2024-12-17 16:15)
DX: A41.9 Sepsis, unspecified organism (principal); J18.9 Pneumonia, unspecified organism; M86.68 Other chronic osteomyelitis, other site; I48.20 Chronic atrial fibrillation, unspecified; M46.24 Osteomyelitis of vertebra, thoracic region; M46.26 Osteomyelitis of vertebra, lumbar region; N39.0 Urinary tract infection, site not specified; N17.9 Acute kidney failure, unspecified; I13.0 Hypertensive heart and chronic kidney disease with heart failure and stage 1 through stage 4 chronic kidney disease, or unspecified chronic kidney disease; G93.40 Encephalopathy, unspecified; E87.20 Acidosis, unspecified; K22.10 Ulcer of esophagus without bleeding; M46.25 Osteomyelitis of vertebra, thoracolumbar region; Z79.01 Long term (current) use of anticoagulants; Z95.5 Presence of coronary angioplasty implant and graft; I25.10 Atherosclerotic heart disease of native coronary artery without angina pectoris; Z99.3 Dependence on wheelchair; D63.1 Anemia in chronic kidney disease; L08.9 Local infection of the skin and subcutaneous tissue, unspecified; N18.32 Chronic kidney disease, stage 3b; I69.30 Unspecified sequelae of cerebral infarction; K29.70 Gastritis, unspecified, without bleeding; S21.209A Unspecified open wound of unspecified back wall of thorax without penetration into thoracic cavity, initial encounter; K22.70 Barrett's esophagus without dysplasia; I50.9 Heart failure, unspecified; Z79.899 Other long term (current) drug therapy
CPT/HCPCS: 36415; 36600; 70450; 71045; 72128; 72148; 74176; 77001; 80053; 80202; 81001; 82140; 82728; 82803; 83540; 83550; 83605; 83615; 83690; 83735; 83880; 84100; 84145; 84484; 85014; 85018; 85025; 85610; 85652; 85730; 86140; 86331; 86635; 86850; 86900; 86901; 86923; 87040; 87077; 87086; 87186; 87502; 87811; 92526; 92610; 93005; 94664; 94762; 99284; A4314; A4649; C1894; J0131; J0692; J0696; J1100; J1642; J2250; J2470; J2543; J3010; J3373; J3475; J3480; J3490; J7050; J7120; P9016; A9270; C1751

== ENCOUNTER 2024-12-20 12:03 | Inpatient (IN) | payer MEDICARE, MEDICAID, SELFPAY ==
[2024-12-20] VITALS (10 sets, daily range): BP systolic 126–171; BP diastolic 67–108; PULSE 70–101; RESP 15–100; TEMP 35.6–36.6; O2SAT 94–100; BMI 36.0
--- NOTE | 2024-12-20 13:00 | PC.NURSE ---
PATIENT IN ROOM ON [facility] CONNECTED TO MONITORS. PATIENT WAS SOILED ON ARRIVAL AND PATIENT WAS CLEANED AND NEW LINEN PLACED. NO SIGNS OF ACUTE DISTRESS NOTED.
--- NOTE | 2024-12-20 13:40 | PC.NURSE ---
WOUND PRESENT ON ARRIVAL TO MID BACK. PACKING PRESENT AND MEPELEX COVERING WOUND ON ARRIVAL. 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
--- NOTE | 2024-12-20 14:25 | EKG_ITS ---
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
[2024-12-20 14:56] LABS: Bilirubin,Urine Negative (Negative); Blood,Urine 3+ (Negative); Clarity,Urine Clear (Clear/Hazy); Collection Type, Urine Catheter; Color,Urine Lt-Yellow (Lt Yel-Yel); Culture Indicated,Urine Not Indicated; Glucose, Urine Negative (Negative); Ketones,Urine Negative (Negative); Leukocyte Esterase,Urine Positive (Negative); Nitrite,Urine Negative (Negative); PH,Urine 5.5 (5.0-7.0); Protein,Urine 1+ (Neg - Trace); RBC,Urine 53 /hpf (0-3); Specific Gravity,Urine 1.014 (1.001-1.035); Squamous Epithelial Cell,Urine 5 /hpf (0-5); Urobilinogen,Urine Negative mg/dL (0.0-1.0); WBC,Urine 9 /hpf (0-5)
[2024-12-20 15:07] LABS: INR 1.5 (0.9-1.3); Partial Thromboplastin Time 33.6 Seconds (22.0-36.0); Prothrombin Time 15.5 Seconds (9.0-12.2)
[2024-12-20 15:11] LABS: Alanine Aminotransferase 19 U/L (10-49); Albumin, Serum 3.0 gm/dL (3.4-4.8); Albumin/Globulin Ratio 0.9 (1.2-2.2); Alkaline Phosphatase 101 U/L (46-116); Anion Gap 11 (7-16); Aspartate Amino Transferase 29 U/L (0-34); BUN/Creatinine Ratio 19 Ratio (12-20); Bilirubin,Total 0.4 mg/dL (0.3-1.2); Blood Urea Nitrogen 36 mg/dL (9-23); Calcium 8.9 mg/dL (8.3-10.6); Calcium (Corrected) 9.7 mg/dL (8.5-10.1); Carbon Dioxide 20.6 mMol/L (20.0-31.0); Chloride 117 mMol/L (98-107); Creatinine (Component) 1.9 mg/dL (0.6-1.3); Estimated Creatinine Clearance 42.0 mL/min (>60); Globulin 3.2 gm/dL (2.3-3.5); Glucose 112 mg/dL (74-106); Osmolality,Calculated 305 (275-295); Potassium 4.9 mMol/L (3.4-5.1); Sodium 149 mMol/L (136-145); Total Protein 6.2 gm/dL (5.7-8.2); eGFR 39 See Note
--- NOTE | 2024-12-20 16:13 | EDNOTE_ITS ---
Altered Mental Status RME/HPI General Chief Complaint: Altered Mental Status Stated Complaint: ALTERED Time Seen by Provider: 12/20/24 12:44 Source: family Arrival date/time: 12/20/24 12:03 Mode of arrival: ambulatory RME / HPI RME / HPI narrative: 64-year-old male brought in by the family, the patient's for reevaluation. She states that the patient left the hospital 24 hours ago for infection and is now home being treated with IV antibiotics for osteomyelitis. This morning the nurse came to the hospital and felt that the patient is not at his baseline. The states that when she brought him to the hospital on Wednesday he was at his baseline which includes him watching football on the TV. Since he has been in the hospital the patient has not wanted to watch football. He has had slightly decreased oral intake since he left the hospital but otherwise no fevers. She feels like there is no worsening change in his mental status since he left the hospital. The patient's does not feel that he has no trauma, he is urinating but has decreased oral intake. There is no rash. No complaint of chest pain or shortness of breath. No abdominal pain. The patient is continuing all his IV medications for his PICC line. MD complaint: altered mental status Timing confirmed by: spouse Severity: similar to previous episodes Consistency of symptoms: waxing and waning Context: other (Since the patient left the hospital) Treatments prior to arrival: other (None.) Related Data Home Medications ?Medication ?Instructions ?Recorded ?Confirmed clopidogrel 75 mg tablet 75 mg PO QDAY 10/20/2312/16 isosorbide mononitrate 30 mg 60 mg PO QDAY 10/20/23 tablet,extended release 24 hr metoprolol tartrate 25 mg tablet 50 mg PO BID 10/20/23 12/16/24 diltiazem HCl 60 mg 60 mg PO QDAY 07/18/2412/16 capsule,extended release 12 hr Previous Rx's ?Medication ?Instructions ?Recorded apixaban 5 mg tablet (Eliquis) 5 mg PO BID #30 tabs atorvastatin 40 mg tablet 40 mg PO QDAY #30 tabs 10/19 ceftriaxone 2 gram/50 mL in 2 g (50 mL) IV QDAY 8 week s #24 ea 12/18/24 dextrose (iso-osm) intravenous piggyback doxycycline hyclate 100 mg tablet 100 mg PO BID 8 week s #112 tabs 12/18/24 ascorbic acid (vitamin C) 250 mg 500 mg (2 x 250 mg) P O BID 1 month 12/19/24 tablet (Vitamin C) #120 tabs multivitamin with folic acid 400 1 tab PO QDAY 1 month #30 tabs 12/19/24 mcg tablet (Tab-A-Lissette) pantoprazole 40 mg tablet,delayed 40 mg PO BID #30 tab s 12/19/24 release zinc sulfate 50 mg zinc (220 mg) 220 mg (4.4 x 50 mg z inc (220 mg)) 12/19/24 capsule PO QDAY 20 days #88 caps Allergies Allergy/AdvReac Type Severity Reaction Status Date / Time bee pollen Allergy Severe Anaphylaxis Verified 12/15/24 13:39 Sulfa (Sulfonamide Allergy Intermediate Swelling Verified 12/15/24 13:39 Antibiotics) of Lip/Tongue/Throat ampicillin Allergy Unknown Hives Verified 12/15/24 13:39 hydrocodone AdvReac Unknown Nausea Verified 12/15/24 13:39 COLLAGEN Allergy Intermediate Rash Uncoded 12/15/24 13:39 Review of Systems Review of Systems Systems Reviewed: All systems reviewed, normal except as documented Past Medical History Past Medical History NEUROLOGIC: Positive Neurological Disorders and Cerebrovascular Accident CARDIAC: Positive Cardiac Disorders, Myocardial Infarction, Atrial Fibrillation, Coronary Artery Disease, Hypercholesterolemia and Hypertension GASTROINTESTINAL: Positive Gastrointestinal Disorders, Gall Bladder Disease, Gastrointestinal Bleed, Ulcer, Gastroesophageal Reflux Disease and Obesity MUSCULOSKELETAL: Positive Musculoskeletal Disorders, Bone Cancer and Scoliosis ENT: Positive Deafness HEMATOLOGIC: Positive Blood Disorders and Anemia PSYCHO/SOCIAL: Positive Depression OTHER HISTORY: Positive Hospitalization, Falls, Blood Transfusions (2 unit pRBC, 12/16/24), Chemotherapy, Radiation Therapy and Cancer Family History FAMILY HISTORY: Positive Family Cardiac Disorders and Family Surgery Surgical History SURGICAL: Positive Cardiac Surgery, Coronary Stent, Angiogram, Endocrine Surgery, Tonsillectomy, Abdominal Surgery and Amputation Social History SMOKING STATUS: Never smoker SECOND HAND EXPOSURE: No SUBSTANCE USE: does not use ED Exam Narrative Physical exam: The patient is sitting in the bed, in a gown. Looking around the room, looking at his . General General appearance: Present alert, in no apparent distress and other (Not diaphoretic.) Head Head exam: Present atraumatic Eye Eye exam: Present normal appearance, PERRL and EOMI; Absent scleral icterus ENT ENT exam: Present normal exam, normal oropharynx and other (Dry mucous membranes.) Neck Neck exam: Present normal inspection, full ROM and trachea midline; Absent tenderness or meningismus Chest Chest inspection: Present normal inspection and symmetric chest wall rise Respiratory Respiratory exam: Present normal lung sounds bilaterally Cardiovascular Cardiovascular exam: Present regular rate, normal rhythm and normal heart sounds Abdominal Exam Abdominal exam: Present soft and normal bowel sounds; Absent distention, tenderness, guarding or rebound Extremities Exam Extremities exam: Present normal capillary refill; Absent pedal edema or joint swelling Neurological Exam Neurological exam: Present alert and other (Looking around the room.) Psychiatric Psychiatric exam: Present normal mood and flat affect; Absent agitated, anxious, homicidal ideation or suicidal ideation Skin Skin exam: Present warm and dry Course Course Course Narrative: Labs are sent on the patient. Quality Measures none Orders Category Date Time Status Admit to Inpatient Status Routine Admission 12/20/24 16:54 Active Patient Condition Routine Admission 12/20/24 16:53 Ordered Bedrest NOW Care 12/20/24 16:55 Active Wire Basket Maker NOW Care 12/20/24 14:22 Active Continuous Pulse Oximetry NOW Care 12/20/24 14:21 Completed EKG (ED ONLY) *Do not use* NOW Care 12/20/24 14:25 Completed In and Out Catheter X1 Care 12/20/24 14:21 Completed Insert IV STAT Care 12/20/24 14:21 Active NPO NOW Care 12/20/24 14:22 Active Neuro Check Q4H Care 12/20/24 16:53 Active Notify provider NEEDED Care 12/20/24 16:53 Active Seizure precautions NEEDED Care 12/20/24 16:55 Active Consult to Neurology / Tele-Neurology Stat Cons 12/20/24 16:56 Active EKG (ED Only) Stat Exams 12/20/24 14:25 Draft CBC AM DRAW Lab 12/21/24 05:00 Ordered CBC AM DRAW Lab 12/22/24 05:00 Ordered CBC AM DRAW Lab 12/23/24 05:00 Ordered CBC Stat Lab 12/20/24 14:37 Received Comprehensive Metabolic Panel AM DRAW Lab 12/21/24 05:00 Ordered Comprehensive Metabolic Panel AM DRAW Lab 12/22/24 05:00 Ordered Comprehensive Metabolic Panel AM DRAW Lab 12/23/24 05:00 Ordered Comprehensive Metabolic Panel Stat Lab 12/20/24 14:37 Completed Magnesium AM DRAW Lab 12/21/24 05:00 Ordered Magnesium AM DRAW Lab 12/22/24 05:00 Ordered Magnesium AM DRAW Lab 12/23/24 05:00 Ordered Partial Thromboplastin Time Stat Lab 12/20/24 14:37 Completed Phosphorous AM DRAW Lab 12/21/24 05:00 Ordered Phosphorous AM DRAW Lab 12/22/24 05:00 Ordered Phosphorous AM DRAW Lab 12/23/24 05:00 Ordered Prothrombin Time with INR Stat Lab 12/20/24 14:37 Completed Urinalysis, C/S if Indicated Stat Lab 12/20/24 14:00 Completed Acetaminophen Tab [Tylenol Tab] Med 12/20/24 16:53 Ordered 650 mg PO Q6H PRN Doxycycline [Vibramycin] Med 12/20/24 21:00 Ordered 100 mg PO BID Sodium Chloride 0.9% 1000 ml [Ns] 1,000 ml Med 12/20/24 16:07 Discontinued IV 999 mls/hr cefTRIAXone/D5w 2gm [Rocephin/d5w 2gm] Med 12/20/24 17:15 Active 2 gm in 50 ml IV QDAY Code Status Routine Oth 12/20/24 16:53 Ordered Oxygen Delivery DAILY RT 12/20/24 16:55 Active Vital Signs Vital signs: Vital Signs Temperature 97.9 F 12/20/24 12:06 Pulse Rate 86 12/20/24 12:06 Respiratory Rate 16 12/20/24 12:06 Blood Pressure 171/67 H 12/20/24 12:06 Pulse Oximetry (%) 99 12/20/24 12:06 Oxygen Delivery Method Room Air 12/20/24 12:06 Pulse ox is 99% on room air which is adequate. Altered Mental Status MDM Narrative MDM Narrative:: 64-year-old male with recent hospitalization for osteomyelitis presenting to the emergency department with check by the to make sure that the patient is doing fine. He has decreased oral intake for the last 24 hours. Otherwise no falls. No fevers. The patient's initial blood pressure was 171/67 but room air is 99%. The sodium is 149 and it was 145 yesterday when he left the hospital. His creatinine was greater than 2.0 and today it is 1.9 which is slightly improved. Otherwise his glucose is 112. Urinalysis does not show UTI and has no nitrates or leukocytes. There are 9 white cells. Patient appears slightly dehydrated here in the emergency department but otherwise without falls I do not believe the patient needs a new CT scan. Discussed with the medicine resident who will talk with the family. Patient data External records reviewed:: [facility] previous records and EMS form Clinical information provided by:: patient, EMS and family Social determinants that could affect healthcare access:: none Patient has the following chronic illnesses:: See MDM How is presenting disease/condition affected by chronic disease/condition?: exacerbated by Evaluation data The following diagnostics were reviewed and interpreted by me:: lab results and EKG tracing(s) (EKG @ 14:40. Atrial fibrillation, rate 77, no STEMI. ) Lab and/or radiology exams considered but not ordered:: None Interpretation Summary: See MDM Medications / Prescriptions Medications or Prescriptions considered but not ordered:: None Medication administrations:: Medication Administration History Acetaminophen (Acetaminophen 325 Mg Tablet) 650 mg PO Q6H PRN PRN Reason: PAIN OR FEVER > 101 Stop: 01/19/25 16:52 Doxycycline Hyclate (Doxycycline 100 Mg Tablet) 100 mg PO BID [facility] Stop: 12/27/24 20:59 Ceftriaxone Sodium/Dextrose (Rocephin/D5w 2gm) 2 gm in 50 mls @ 100 mls/hr IV QDAY [facility] Stop: 12/27/24 17:14 Discontinued Medications Sodium Chloride (Ns) 1,000 mls @ 999 mls/hr IV .Q1H1M ONE Stop: 12/20/24 17:07 Last Admin: 12/20/24 16:22 Dose: 999 mls/hr Documented By: ARIN See above Consultations Consultation(s) initiated? (list below): Yes Consultation #1 (Physician, Specialty, Details): See above Diagnosis Most likely diagnosis given after review of the tests above:: Dehydration Acute hypernatremia Adult failure to thrive Admission Indicated Admission indicated?: indicated Admission Request Was there a request for admission?: Yes Admission Attestation Admission request attestation: Discussed case with [] from Hospitalist service regarding admission. Discussed patients ED course, exam findings, labs, and radiology results. The Hospitalist [agrees,declines] to accept the patient for admission. Disposition Plan Disposition Plan: Admit Discharge Plan Plan Patient Disposition: Admit Acute Care w/in Hospital Patient condition on transfer: Stable Prescriptions/Referrals Prescriptions/Med Rec: No Action atorvastatin 40 mg tablet 40 mg PO QDAY Qty: 30 0RF Eliquis 5 mg tablet 5 mg PO BID Qty: 30 0RF isosorbide mononitrate 30 mg Tablet Extended Release 24 Hr 60 mg PO QDAY clopidogrel 75 mg Tablet 75 mg PO QDAY metoprolol tartrate 25 mg Tablet 50 mg PO BID diltiazem HCl 60 mg capsule,extended release 12 hr 60 mg PO QDAY ceftriaxone in dextrose,iso-os 2 gram/50 mL Piggyback 2 g IV QDAY 56 Days Qty: 24 2RF Rx Instructions: To complete regimen on 02/12/2025 - eight week course doxycycline hyclate 100 mg Tablet 100 mg PO BID 56 Days Qty: 112 0RF Rx Instructions: To complete regimen on 02/12/2025 - eight week course ascorbic acid (vitamin C) [Vitamin C] 250 mg Tablet 500 mg PO BID 30 Days Qty: 120 0RF multivitamin with folic acid [Tab-A-Lissette] 400 mcg Tablet 1 tab PO QDAY 30 Days Qty: 30 0RF zinc sulfate 50 mg zinc (220 mg) Capsule 220 mg PO QDAY 20 Days Qty: 88 0RF pantoprazole 40 mg Tablet,Delayed Release (Dr/Ec) 40 mg PO BID Qty: 30 0RF Referrals: Wilfredo Navarro MD [Primary Care Provider, Family Practice] - In 1 week Problem List Clinical Impression: Dehydration, Acute hypernatremia, Adult failure to thrive Patient/Caregiver Discharge Instructions Print Language: Bengali Stand Alone Forms: Caterina Award Info., Patient Portal Info Letter
[2024-12-20] MEDS: SODIUM CHLORIDE 0.9% 1000 ML 1,000 ML 999 ML IV (16:22)
--- NOTE | 2024-12-20 16:44 | PD.ADDHP ---
Addendum History & Physical Addendum Date of report being addended: 12/20/24 Narrative: Attending attestation: I reviewed labs, imaging, EKG, home medications and prior available records. Face to face evaluation was performed by me. I have personally examined the patient and discussed assessment and plan with the IM team. I reviewed the resident note and agree with the plan with exceptions as below. 64-year-old man who was recently discharged for sepsis secondary to infected ulcers who presented with a chief complaint of altered mental status Acute encephalopathy Infected ulcers status post long-term antibiotics via tunneled line CKD, baseline around 1.8 Atrial fibrillation with controlled ventricular rhythm Gastritis Continue Rocephin 2 g daily and doxycycline for 8 weeks Delirium precautions Start mittens as patient is trying to pull his lines Consulted neurology Most recent CT done on 12/17 was not diagnostic due to motions Unable to do MRI due to agitation and being claustrophobic Status post EGD that showed gastritis and Castorena's esophagus. Continue PPI Monitor kidney function. Avoid nephrotoxins Resumed Eliquis. Continue diltiazem and metoprolol
[2024-12-20 17:07] LABS: Basophils # (Auto) 0.0 Thou/mm3 (0.0-0.2); Basophils % (Auto) 0 % (0-2.5); Eosinophils # (Auto) 0.4 Thou/mm3 (0.0-0.5); Eosinophils % (Auto) 4 % (0-10); Hematocrit 31.6 % (41.0-53.0); Hemoglobin 9.8 g/dL (13.5-16.0); Immature Granulocytes Auto 0.13 Thou/mm3 (0.00-0.00); Lymphocytes # (Auto) 0.7 Thou/mm3 (1.0-4.8); Lymphocytes % (Auto) 8 % (10-50); Mean Corpuscular HGB Conc 31.0 g/dl (31.0-37.0); Mean Corpuscular Hemoglobin 27.8 pg (25.0-35.0); Mean Corpuscular Volume 90 fL (80-100); Monocytes # (Auto) 0.5 Thou/mm3 (0.0-0.8); Monocytes % (Auto) 5 % (0-12); Neutrophils # (Auto) 7.4 Thou/mm3 (1.8-7.7); Neutrophils % (Auto) 82 % (37-80); Nucleated Red Blood Cell # 0.00 Thou/mm3 (0.00-0.00); Nucleated Red Blood Cell % 0 /100 WBC (0); Platelet Count 338 Thou/mm3 (140-440); RDW Standard Deviation 62.5 fL (35.1-43.9); Red Blood Count 3.53 Miln/mm3 (4.50-5.90); White Blood Count 9.1 Thou/mm3 (3.8-10.6)
[2024-12-20] MEDS: cefTRIAXone/D5w 2gm 2 GM/50 ML BAG IV (17:25)
--- NOTE | 2024-12-20 17:48 | ESHP_ITS ---
<Statement entered by Brandon Kat MD - 12/20/24 18:19> Patient seen and assessed in hospital bed with encephalopathy likely secondary to underlying dementia which is worsening, delirium, infectious etiology from osteomyelitis. Patient will be readmitted for neurology recommendations and brain MRI to rule out any primary BARTENDER lesion causing encephalopathy. Will continue all other home medications and continue IV antibiotic regimen which the patient was discharged on for chronic osteomyelitis as recommended by ID. I have personally seen and examined the patient. I agree with the resident's assessment and plan as documented below. Brandon Kat DO PGY-2 Internal Medicine - GME Documentation for date of: 12/20/24 HPI History of Present Illness History of present illness: 64-year-old male with a significant history of A-fib, for which he is on Eliquis, CAD with stenting, and a stroke in May 2023, presented to the ED 12/20 for suspected acute encephalopathy. He was brought in by his for re- evaluation just 24 hours after discharge from a recent hospitalization and is currently receiving 8wks IV antibiotics for chronic osteomyelitis at home. The acute concern was raised by a home health nurse who noted the patient was not at his stated baseline this morning. The confirms a functional change: since his admission, he has shown a decreased interest in watching football on TV (which he was able to do previously) and has had a slightly decreased oral intake since discharge 12/19. She reports no new subjective fever, rash, trauma, chest pain, or shortness of breath, and notes that his current mental status is not worse than it was upon discharge but not where it was prior to 12/14. ED course: Initial ED vitals include temperature 97.9, BP 171/67, heart rate 86, 99% on room air. Notable labs include WBC 9.1, hemoglobin 9.8, sodium 149, potassium 4.9, creatinine 1.9, LFTs within normal range. Patient received 1 L of sodium chloride. Past medical history: As stated above. Allergies: Family history: Noncontributory. Social history: No alcohol use, no smoking, no illicit drug use. Patient admitted for acute encephalopathy. Review of Systems Review of Systems Narrative Review of Systems: All systems reviewed negative unless stated otherwise above. Exam Vital Signs Temp Pulse Resp BP Pulse Ox O2 Del Method 97.6 F 87 18 146/86 H 100 Room Air 12/20/24 15:08 12/20/24 17:30 12/20/24 17:30 12/20/24 15:08 12/20/24 15:08 12/20/24 15:08 Narrative Exam General: Alert and oriented x1, No apparent distress. Skin: Intact, Warm, no rashes. 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 HEENT: Normocephalic, Atraumatic. Normal neck range of motion, Supple. Trachea midline. Severe Hearing loss b/l. Respiratory: Lungs are clear to auscultation, Breath sounds are equal bilaterally with equal chest expansion. Cardiovascular: irregular rhythm, normal S1, S2, No murmurs. Distal pulses 2+. Abdomen: Abdomen non-distended, without erythema, or lesions. Normotensive bowel sounds x4. Percussion tympanic. Palpation soft, nontender in all four quadrants. No organomagely. Absent rigidity, guarding, or rebound. Musculoskeletal: No erythema, swelling, tenderness of any joints. No edema of BLE. DP pulses +2/3 b/l. Patient cannot move his b/l extremities but can sense gross touch L3-S1 dermatomes b/l. Neurologic: CN II-XII grossly intact, no focal deficits, alert, not following commands Results: Labs 12/21/24 04:30 12/21/24 04:30 Labs: Short CBC 12/20/24 Range/Units 14:37 WBC 9.1 (3.8-10.6) Thou/mm3 Hgb 9.8 L (13.5-16.0) g/dL Hct 31.6 L (41.0-53.0) % Plt Count 338 D (140-440) Thou/mm3 BMP 12/20/24 14:37 Sodium 149 H Potassium 4.9 D Chloride 117 H Carbon Dioxide 20.6 BUN 36 H Creatinine 1.9 H Glucose 112 H Calcium 8.9 Liver Function 12/20/24 Range/Units 14:37 Total Bilirubin 0.4 (0.3-1.2) mg/dL AST 29 (0-34) U/L ALT 19 (10-49) U/L Alkaline Phosphatase 101 (46-116) U/L Albumin 3.0 L (3.4-4.8) gm/dL Urine 12/20/24 Range/Units 14:00 Urine Color Lt-Yellow (Lt Yel-Yel) Urine Clarity Clear (Clear/Hazy) Urine pH 5.5 (5.0-7.0) Ur Specific [place] 1.014 (1.001-1.035) Urine Protein 1+ A (Neg - Trace) Urine Glucose (UA) Negative (Negative) Quality Measures Quality Measures none Medications Home Medications and Allergies Home Medications ?Medication ?Instructions ?Recorded ?Confirmed ?Type clopidogrel 75 mg tablet 75 mg PO QDAY 10/20/2312/16 History isosorbide mononitrate 30 mg 60 mg PO QDAY 10/20/23 History tablet,extended release 24 hr metoprolol tartrate 25 mg tablet 50 mg PO BID 10/20/23 12/16/24 History diltiazem HCl 60 mg 60 mg PO QDAY 07/18/2412/16 History capsule,extended release 12 hr Allergies Allergy/AdvReac Type Severity Reaction Status Date / Time bee pollen Allergy Severe Anaphylaxis Verified 12/15/24 13:39 Sulfa (Sulfonamide Allergy Intermediate Swelling Verified 12/15/24 13:39 Antibiotics) of Lip/Tongue/Throat ampicillin Allergy Unknown Hives Verified 12/15/24 13:39 hydrocodone AdvReac Unknown Nausea Verified 12/15/24 13:39 COLLAGEN Allergy Intermediate Rash Uncoded 12/15/24 13:39 Visit Medications Acetaminophen (Acetaminophen 325 Mg Tablet) 650 mg PO Q6H PRN; Protocol PRN Reason: PAIN OR FEVER > 101 Stop: 01/19/25 16:52 Apixaban (Apixaban 2.5 Mg Tablet) 5 mg PO BID COUNT INCLUDES THE [facility] Stop: 01/19/25 20:59 Ascorbic Acid (Ascorbic Acid 250 Mg Tablet) 500 mg PO BID HANNAH Stop: 01/19/25 20:59 Atorvastatin Calcium (Atorvastatin Calcium 10 Mg Tablet) 40 mg PO QDAY COUNT INCLUDES THE [facility] Stop: 01/19/25 17:29 Clopidogrel Bisulfate (Clopidogrel Bisulfate 75 Mg Tablet) 75 mg PO QDAY COUNT INCLUDES THE [facility] Stop: 01/20/25 08:59 Diltiazem HCl (Diltiazem 30 Mg Tablet) 30 mg PO BID HANNAH Stop: 01/20/25 08:59 Doxycycline Hyclate (Doxycycline 100 Mg Tablet) 100 mg PO BID COUNT INCLUDES THE [facility] Stop: 12/27/24 20:59 Ceftriaxone Sodium/Dextrose (Rocephin/D5w 2gm) 2 gm in 50 mls @ 100 mls/hr IV QDAY HANNAH Stop: 12/27/24 17:14 Last Admin: 12/20/24 17:25 Dose: 100 mls/hr Isosorbide Mononitrate (Isosorbide Er Mononitrate 30 Mg Tabcr) 60 mg PO QDAY HANNAH Stop: 01/20/25 08:59 Metoprolol Tartrate (Metoprolol Tartrate 25 Mg Tablet) 50 mg PO BID HANNAH Stop: 01/19/25 20:59 Multivitamins (Multivitamins Tablet) 1 tab PO QDAY HANNAH Stop: 01/19/25 17:29 Pantoprazole Sodium (Pantoprazole 40 Mg Tablet) 40 mg PO BID HANNAH Stop: 01/19/25 20:59 Zinc Sulfate (Zinc Sulfate 220 Mg Capsule) 220 mg PO QDAY HANNAH Stop: 01/04/25 08:59 Discontinued Medications Apixaban (Apixaban 2.5 Mg Tablet) 5 mg PO X1 ONE Stop: 12/20/24 17:18 Last Admin: 12/20/24 17:26 Dose: Not Given Sodium Chloride (Ns) 1,000 mls @ 999 mls/hr IV .Q1H1M ONE Stop: 12/20/24 17:07 Last Admin: 12/20/24 16:22 Dose: 999 mls/hr Assessment & Plan Plan 64-year-old past medical history of hypertension, atrial fibrillation on Eliquis, coronary artery disease with stent placement, and a stroke in May 2023. Patient admitted for acute encepahlophaty. Patient had a recent hospital admission from 12/15 to 12/19. #Acute encephalopathy #Chronic osteomyelitis #?Dementia DDx: Infectious etiology from osteomyelitis vs. primary BARTENDER lesions ID from last admission recommended 8 weeks of antibiotics with ceftriaxone 2 g daily and doxycycline 100 mg twice daily for chronic osteomyelitis Patient has a tunneled right IJ central venous catheter in place Plan: ? MRI brain ordered ? Neurology consulted, Dr. Fallon, see recs ? Neuro checks Q4h ? Continue Rocephin 2 g daily and doxycycline 100 mg twice daily per ID recommendations #Hx of Decubitus Ulcer According to last admission neighborhood coordinator reported nonpurulent drainage from a midline lower thoracic decubitus ulcer, non erythematous Patient was hospitalized in [place] 06/2024 for I&D and restitch of an draining abscess that had developed in the same site, and spent 90 days in recovery with regular wound care follow up. -Wound care -Watch for signs of infection closely #Hypernatremia Likely secondary to decreased oral intake Sodium on presentation 12/20 149 Plan ? Follow chemistry in a.m. ? D5W #Anemia, normocytic 2/2 #Esophageal ulcers #Gastritis #Castorena's esophagus Hgb on presentation 9.8 Iron 12/16 showed levels low, ferritin high EGD performed 12/17 showed esophageal ulcers, mucosal changes consistent with Castorena's esophagus, gastritis -Watch Hgb closely, transfuse if <7 -Dr. Claros consulted, appreciate recs -Protonix 40 mg IV every 12 hours #CKD stage IIIb Creatinine 1.9, which is around baseline of 1.8. Plan: ?Renally dose meds, avoid overdiuresis, or nephrotoxins #Hx of Atrial fibrillation #Hx of CAD with stents #Hx of CVA with residual deficit EKG 12/20 shows Afib without RVR Patient with history of chronic atrial fibrillation Patient apparently developed stroke after being taken off Eliquis for GI bleed.y Plan: -Continue home diltiazem 60 mg daily -Continue home metoprolol 50mg BID -Continue home Atorvastatin PO 40mg qHS -Keep Mg >2 and K+ >4 Health Maintenance: Disposition: Telemetry Diet: Dysphagia 1 diet DVT ppx: Eliquis 5 mg twice daily GI ppx: Pantoprazole IVP 40mg twice daily Code Status: FULL Case discussed with my attending Dr. Owen, and senior resident, Dr. Shey Huff MD PGY-1 Attending Provider Attestation/Addendum I reviewed labs, imaging, EKG, home medications and prior available records. Face to face evaluation was performed by me. I have personally examined the patient and discussed assessment and plan with the IM team. I reviewed the resident note and agree with the plan with exceptions as below. Please see my addendum in a separate document.
[2024-12-20] MEDS: ATORVASTATIN CALCIUM 10 MG TABLET 40 MG PO (18:09)
[2024-12-20] MEDS: MULTIVITAMINS TABLET 1 TAB PO (18:10)
[2024-12-20] MEDS: PANTOPRAZOLE 40 MG TABLET PO (20:45)
[2024-12-20] MEDS: APIXABAN 2.5 MG TABLET 5 MG PO (20:46)
[2024-12-20] MEDS: ASCORBIC ACID 250 MG TABLET 500 MG PO (20:46)
[2024-12-20] MEDS: DOXYCYCLINE 100 MG TABLET PO (20:46)
[2024-12-20] MEDS: METOPROLOL TARTRATE 25 MG TABLET 50 MG PO (20:46)
[2024-12-21] VITALS (19 sets, daily range): BP systolic 132–178; BP diastolic 62–107; PULSE 62–101; RESP 15–95; TEMP 35.9–36.2; O2SAT 95–100; BMI 32.6; BMI 32.4
[2024-12-21] MEDS: hydrALAZINE INJ 20 MG/ML VIAL 10 MG IVP (00:35)
[2024-12-21] MEDS: MELATONIN 3 MG TABLET PO (01:30)
[2024-12-21 05:45] LABS: Basophils # (Auto) 0.0 Thou/mm3 (0.0-0.2); Basophils % (Auto) 0 % (0-2.5); Eosinophils # (Auto) 0.4 Thou/mm3 (0.0-0.5); Eosinophils % (Auto) 4 % (0-10); Hematocrit 27.9 % (41.0-53.0); Hemoglobin 8.9 g/dL (13.5-16.0); Immature Granulocytes Auto 0.22 Thou/mm3 (0.00-0.00); Lymphocytes # (Auto) 0.8 Thou/mm3 (1.0-4.8); Lymphocytes % (Auto) 8 % (10-50); Mean Corpuscular HGB Conc 31.9 g/dl (31.0-37.0); Mean Corpuscular Hemoglobin 28.3 pg (25.0-35.0); Mean Corpuscular Volume 89 fL (80-100); Monocytes # (Auto) 0.5 Thou/mm3 (0.0-0.8); Monocytes % (Auto) 5 % (0-12); Neutrophils # (Auto) 7.9 Thou/mm3 (1.8-7.7); Neutrophils % (Auto) 81 % (37-80); Nucleated Red Blood Cell # 0.00 Thou/mm3 (0.00-0.00); Nucleated Red Blood Cell % 0 /100 WBC (0); Platelet Count 284 Thou/mm3 (140-440); RDW Standard Deviation 60.5 fL (35.1-43.9); Red Blood Count 3.15 Miln/mm3 (4.50-5.90); White Blood Count 9.7 Thou/mm3 (3.8-10.6)
[2024-12-21 06:12] LABS: Alanine Aminotransferase 19 U/L (10-49); Albumin, Serum 2.6 gm/dL (3.4-4.8); Albumin/Globulin Ratio 0.9 (1.2-2.2); Alkaline Phosphatase 93 U/L (46-116); Anion Gap 9 (7-16); Aspartate Amino Transferase 28 U/L (0-34); BUN/Creatinine Ratio 23 Ratio (12-20); Bilirubin,Total 0.4 mg/dL (0.3-1.2); Blood Urea Nitrogen 36 mg/dL (9-23); Calcium 8.4 mg/dL (8.3-10.6); Calcium (Corrected) 9.5 mg/dL (8.5-10.1); Carbon Dioxide 18.7 mMol/L (20.0-31.0); Chloride 114 mMol/L (98-107); Creatinine (Component) 1.6 mg/dL (0.6-1.3); Estimated Creatinine Clearance 47.4 mL/min (>60); Globulin 3.0 gm/dL (2.3-3.5); Glucose 91 mg/dL (74-106); Magnesium 1.8 mg/dL (1.6-2.6); Osmolality,Calculated 291 (275-295); Phosphorous 3.1 mg/dL (2.4-5.1); Potassium 4.1 mMol/L (3.4-5.1); Sodium 142 mMol/L (136-145); Total Protein 5.6 gm/dL (5.7-8.2); eGFR 48 See Note
[2024-12-21] MEDS: cefTRIAXone/D5w 2gm 2 GM/50 ML BAG IV (09:06)
[2024-12-21] MEDS: Magnesium Sulfate 2 GM Ivpb 2 GM/50 ML BAG IV (09:07)
[2024-12-21] MEDS: DOXYCYCLINE 100 MG TABLET PO ×2 (09:21→20:21)
[2024-12-21] MEDS: ISOSORBIDE ER MONONITRATE 30 MG TABCR 60 MG PO (09:21)
[2024-12-21] MEDS: ZINC SULFATE 220 MG CAPSULE PO (09:22)
[2024-12-21] MEDS: METOPROLOL TARTRATE 25 MG TABLET 50 MG PO ×2 (09:22→20:20)
[2024-12-21] MEDS: MULTIVITAMINS TABLET 1 TAB PO (09:22)
[2024-12-21] MEDS: ATORVASTATIN CALCIUM 10 MG TABLET 40 MG PO (09:23)
[2024-12-21] MEDS: ASCORBIC ACID 250 MG TABLET 500 MG PO ×2 (09:23→20:21)
[2024-12-21] MEDS: DILTIAZEM 30 MG TABLET PO ×2 (09:23→20:21)
[2024-12-21] MEDS: APIXABAN 2.5 MG TABLET 5 MG PO ×2 (09:24→20:21)
[2024-12-21] MEDS: CLOPIDOGREL BISULFATE 75 MG TABLET PO (09:24)
[2024-12-21] MEDS: PANTOPRAZOLE 40 MG TABLET PO ×2 (09:24→20:21)
--- NOTE | 2024-12-21 10:34 | ESPR_ITS ---
<Statement entered by Brandon Kat MD - 12/21/24 16:01> Patient seen and assessed in hospital bed is alert oriented x 1, able to only state his first name but does not know where he is or the purpose of his visit. There is suspicion that the patient has underlying dementia along with history of CVA. Physical therapy is assessing the patient and we will also obtain an MRI of the brain to rule out any primary CURER ACID DRUM lesion, demyelinating disease. Neurology has been consulted for recommendations. Patient has been somewhat anxious and has been attempting to pull out his IV lines and scratch himself; as result will place mittens for his safety. Will continue monitoring for any acute changes but expect discharge within the next 24 to 48 hours. I have personally seen and examined the patient. I agree with the resident's assessment and plan as documented below. Brandon Kat DO PGY-2 Internal Medicine - [facility]ME Documentation for date of: 12/21/24 Subjective Subjective Interval history: Patient seen at bedside. No acute overnight events. Patient confused. AOx1 (person). MRI brain to be done, screening performed. Neuro to see and provid recs. Exam Vital Signs Temp Pulse Resp BP Pulse Ox O2 Del Method 96.9 F 96 18 164/90 H 99 Room Air 12/21/24 07:58 12/21/24 09:23 12/21/24 07:58 12/21/24 09:23 12/21/24 07:58 12/21/24 07:58 Narrative Exam General: Alert and oriented x1, No apparent distress. Skin: Intact, Warm, no rashes. 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 HEENT: Normocephalic, Atraumatic. Normal neck range of motion, Supple. Trachea midline. Severe Hearing loss b/l. Respiratory: Lungs are clear to auscultation, Breath sounds are equal bilaterally with equal chest expansion. Cardiovascular: irregular rhythm, normal S1, S2, No murmurs. Distal pulses 2+. Abdomen: Abdomen non-distended, without erythema, or lesions. Normotensive bowel sounds x4. Percussion tympanic. Palpation soft, nontender in all four quadrants. No organomagely. Absent rigidity, guarding, or rebound. Musculoskeletal: No erythema, swelling, tenderness of any joints. No edema of BLE. DP pulses +2/3 b/l. Patient cannot move his b/l extremities but can sense gross touch L3-S1 dermatomes b/l. Neurologic: CN II-XII grossly intact, no focal deficits, alert, not following commands Objective Labs 12/26/24 05:16 12/26/24 05:16 Labs: Laboratory Results - last 24 hr 12/20/24 12/20/24 12/21/24 14:00 14:37 04:30 WBC 9.1 9.7 RBC 3.53 L 3.15 L Hgb 9.8 L 8.9 L Hct 31.6 L 27.9 L MCV 90 89 MCH 27.8 28.3 MCHC 31.0 31.9 RDW Std Deviation 62.5 H 60.5 H Plt Count 338 D 284 D Neut % (Auto) 82 H 81 H Lymph % (Auto) 8 L 8 L [place] % (Auto) 5 5 Eos % (Auto) 4 4 Baso % (Auto) 0 0 Neut # (Auto) 7.4 7.9 H Lymph # (Auto) 0.7 L 0.8 L [place] # (Auto) 0.5 0.5 Eos # (Auto) 0.4 0.4 Baso # (Auto) 0.0 0.0 Immature Gran # (Auto) 0.13 H 0.22 H Absolute Nucleated RBC 0.00 0.00 Immature Gran % 1 H 2 H Nucleated RBC % 0 0 PT 15.5 H INR 1.5 H APTT 33.6 Sodium 149 H 142 Potassium 4.9 D 4.1 D Chloride 117 H 114 H Carbon Dioxide 20.6 18.7 L Anion Gap 11 9 BUN 36 H 36 H Creatinine 1.9 H 1.6 H Estim Creat Clear Calc 42.0 L 47.4 L eGFR 39 L 48 L BUN/Creatinine Ratio 19 23 H Glucose 112 H 91 Calculated Osmolality 305 H 291 Calcium 8.9 8.4 Corrected Calcium 9.7 9.5 Phosphorus 3.1 Magnesium 1.8 Total Bilirubin 0.4 0.4 AST 29 28 ALT 19 19 Alkaline Phosphatase 101 93 Total Protein 6.2 5.6 L Albumin 3.0 L 2.6 L Globulin 3.2 3.0 Albumin/Globulin Ratio 0.9 L 0.9 L Ur Collection Type Catheter Urine Color Lt-Yellow Urine Clarity Clear Urine pH 5.5 Ur Specific [place] 1.014 Urine Protein 1+ A Urine Glucose (UA) Negative Urine Ketones Negative Urine Blood 3+ A Urine Nitrite Negative Urine Bilirubin Negative Urine Urobilinogen (Auto) Negative Ur Leukocyte Esterase Positive Urine RBC 53 H Urine WBC 9 H Ur Squamous Epith Cells 5 Urine Bacteria None Ur Culture Indicated? Not Indicated Quality Measures Quality Measures none Assessment & Plan Assessment Current Active Medications: Generic Name Dose Route Start Last Admin Trade Name Freq PRN Reason Stop Dose Admin Acetaminophen 650 mg 12/20/24 16:53 Acetaminophen 325 Mg Tablet PO 01/19/25 16:52 Q6H PRN PAIN OR FEVER > 101 Protocol Apixaban 5 mg 12/20/24 21:00 12/21/24 09:24 Apixaban 2.5 Mg Tablet PO 01/19/25 20:59 5 mg BID HANNAH Administration Ascorbic Acid 500 mg 12/20/24 21:00 12/21/24 09:23 Ascorbic Acid 250 Mg Tablet PO 01/19/25 20:59 500 mg BID HANNAH Administration Atorvastatin Calcium 40 mg 12/20/24 17:30 12/21/24 09:23 Atorvastatin Calcium 10 Mg Tablet PO 01/19/25 17:29 40 mg QDAY HANNAH Administration Clopidogrel Bisulfate 75 mg 12/21/24 09:00 12/21/24 09:24 Clopidogrel Bisulfate 75 Mg Tablet PO 01/20/25 08:59 75 mg QDAY HANNAH Administration Diltiazem HCl 30 mg 12/21/24 09:00 12/21/24 09:23 Diltiazem 30 Mg Tablet PO 01/20/25 08:59 30 mg BID HANNAH Administration Doxycycline Hyclate 100 mg 12/20/24 21:00 12/21/24 09:21 Doxycycline 100 Mg Tablet PO 12/27/24 20:59 100 mg BID HANNAH Administration Ceftriaxone Sodium/Dextrose 2 gm in 50 mls @ 100 mls/hr 12/20/24 17:15 12/21/24 09:06 Rocephin/D5w 2gm IV 12/27/24 17:14 100 mls/hr QDAY HANNAH Administration Isosorbide Mononitrate 60 mg 12/21/24 09:00 12/21/24 09:21 Isosorbide Er Mononitrate 30 Mg Tabcr PO 01/20/25 08:59 60 mg QDAY HANNAH Administration Metoprolol Tartrate 50 mg 12/20/24 21:00 12/21/24 09:22 Metoprolol Tartrate 25 Mg Tablet PO 01/19/25 20:59 50 mg BID HANNAH Administration Multivitamins 1 tab 12/20/24 17:30 12/21/24 09:22 Multivitamins Tablet PO 01/19/25 17:29 1 tab QDAY HANNAH Administration Pantoprazole Sodium 40 mg 12/20/24 21:00 12/21/24 09:24 Pantoprazole 40 Mg Tablet PO 01/19/25 20:59 40 mg BID HANNAH Administration Zinc Sulfate 220 mg 12/21/24 09:00 12/21/24 09:22 Zinc Sulfate 220 Mg Capsule PO 01/04/25 08:59 220 mg QDAY HANNAH Administration Plan 64-year-old past medical history of hypertension, atrial fibrillation on Eliquis, coronary artery disease with stent placement, and a stroke in May 2023. Patient admitted for acute encepahlophaty. Patient had a recent hospital admission from 12/15 to 12/19. #Acute encephalopathy #Chronic osteomyelitis #?Dementia DDx: Infectious etiology from osteomyelitis vs. primary CURER ACID DRUM lesions, unlikely metabolic ID from last admission recommended 8 weeks of antibiotics with ceftriaxone 2 g daily and doxycycline 100 mg twice daily for chronic osteomyelitis Patient has a tunneled right IJ central venous catheter in place Plan: ? MRI brain ordered, pending ? Neurology consulted, Dr. Fallon, see recs ? Neuro checks Q4h ? Continue Rocephin 2 g daily and doxycycline 100 mg twice daily per ID recommendations #Hx of Decubitus Ulcer According to last admission photo lab specialist reported nonpurulent drainage from a midline lower thoracic decubitus ulcer, non erythematous Patient was hospitalized in [place] 06/2024 for I&D and restitch of an draining abscess that had developed in the same site, and spent 90 days in recovery with regular wound care follow up. -Wound care -Watch for signs of infection closely #Anemia, normocytic 2/2 #Esophageal ulcers #Gastritis #Castorena's esophagus Hgb on presentation 9.8 Iron 12/16 showed levels low, ferritin high EGD performed 12/17 showed esophageal ulcers, mucosal changes consistent with Castorena's esophagus, gastritis -Watch Hgb closely, transfuse if <7 -Dr. Claros consulted, appreciate recs -Protonix 40 mg IV every 12 hours #CKD stage IIIb Creatinine 1.9, which is around baseline of 1.8. Plan: ?Renally dose meds, avoid overdiuresis, or nephrotoxins #Hx of Atrial fibrillation #Hx of CAD with stents #Hx of CVA with residual deficit EKG 12/20 shows Afib without RVR Patient with history of chronic atrial fibrillation Patient apparently developed stroke after being taken off Eliquis for GI bleed.y Plan: -Continue home diltiazem 60 mg daily -Continue home metoprolol 50mg BID -Continue home Atorvastatin PO 40mg qHS -Keep Mg >2 and K+ >4 #Hypernatremia, resolved Health Maintenance: Disposition: Telemetry Diet: Dysphagia 1 diet DVT ppx: Eliquis 5 mg twice daily GI ppx: Pantoprazole IVP 40mg twice daily Code Status: FULL Case discussed with my attending Dr. Hodge, and senior resident, Dr. Shey Huff MD PGY-1 Attending Provider Attestation/Addendum I have discussed and was present for the essential components of the history, physical examination, diagnosis, and treatment plan with the resident. I agree with the patient's care as documented by the resident and amended herein by me. Kristopher Hodge, DO. Although this document has been carefully reviewed, there may still be some phonetic and other typographical errors. These errors are purely grammatical due to imperfections in the software program and should not be construed in any way to compromise the substance of the patient's medical care during this visit.
--- NOTE | 2024-12-21 11:54 | PC.SS ---
In attempt to complete inital assessment, SS attempted to make over the phone contact with Pt Sheila Vogel [phone], no answer. VM left.
--- NOTE | 2024-12-21 12:26 | PC.SS ---
SS met with pt at bs in attempt to complete initial assessment, pt was sleeping. SS will reattempt at a later time.
--- NOTE | 2024-12-21 12:29 | PC.SS ---
Rounding: Pending MRI, Neuro and PT.
--- NOTE | 2024-12-21 12:46 | PC.SS ---
Agustin Schrader is a 64-year-old male admitted to [facility] for Encephalopathy. SS spoke to pt mother Nedra Schrader [phone] in attempt to complete initial assessment. Nedra confirmed demographics. She stated pt lives with friends. Pts medical decision maker is his Sheila Vogel [phone]. Pt is independent with ADLs, no DME that she is aware of. DC options discussed and they wish for pt to return home. SS will remain available for any additional needs or concerns. DC plan: Home DM: , Sheila
--- NOTE | 2024-12-21 17:23 | PD.RESCONSUL ---
HPI Data of Consult Requesting Physician: Ahsan Owen MD Admitting Provider: Ahsan Owen MD Attending Provider: Ahsan Owen MD Primary Care Provider: Wilfredo Navarro MD Consult Narrative Reason for consult: altered mentation History of present illness: Nicolas Schrader is 64 yr male with PMH of A-fib on Eliquis, CAD s/p stent on plavix, stroke in May 2023, and CKD stage IIIb, esophageal ulcers presented to the hospital due to worsening confusion. Patient was recently discharged on 12/19 after diagnosis of osteomyelitis of vertebra. Patient was started on 8-week course of IV antibiotics. After being home for approximately 1 day, home health nurse noticed that patient was off from his baseline. also who was present at bedside, stated that patient has not returned to his original mentation. There are no residual deficits from the stroke. stated that there have been episodes of aphasia where patient is able to understand and follow commands but unable to express. Endorses lower extremity weakness that started around time of COVID. He was mostly sedentary which resulted in the worsening weakness. Uses electric chair for mobility. Otherwise also able to complete ADLs without assistance. In May and October of 2024 there were admissions for GI bleed. Both times, plavix and eliquis were held but resumed upon discharge. denies noticing any dark stool. Is AOx0, able to state first name after repeated prompting. Unable to recognize his . Currently has mitten restraints on as patient was pulling out IVs and attempting to pull cath line. Vitals noted for blood pressure 144/75, heart rate 85. Hemoglobin downtrending to 8.5, hematocrit 27, MCV 89. CT head was negative for acute bleed. MRI brain was unsuccessful. Repeat CT head tomorrow to assess for any interval bleed. Continue Eliquis and Plavix and plan for EEG as workup for encephalopathy. cc:: cc: Ahsan Owen MD Review of Systems Review of Systems ROS Unobtainable: unobtainable due to mental status Exam Vital Signs Temp Pulse Resp BP Pulse Ox O2 Del Method 96.9 F 85 18 144/76 H 99 Room Air 12/21/24 15:42 12/21/24 16:37 12/21/24 16:37 12/21/24 15:42 12/21/24 15:42 12/21/24 15:42 Narrative Exam General: Alert and oriented x0, No apparent distress. Skin: Intact, Warm, Stage IV pressure ulcer at lower thoracic spine, non purulent and non erythematous. Right IJ in place. HEENT: Normocephalic, Atraumatic. Normal neck range of motion, Supple. Trachea midline. Severe Hearing loss b/l. Hearing aids in place Respiratory: Lungs are clear to auscultation, Breath sounds are equal bilaterally with equal chest expansion. Cardiovascular: irregular rhythm, normal rate, normal S1, S2, No murmurs. Distal pulses 2+. Abdomen: Abdomen non-distended, without erythema, or lesions. Normal bowel sounds. Palpation soft, nontender. Absent rigidity, guarding, or rebound. Musculoskeletal: No erythema, swelling. No edema, Patient cannot move his b/l extremities Neurologic: CN II-XII grossly intact, no focal deficits, alert, not following commands Results Labs 12/23/24 05:52 12/23/24 05:52 Labs: Short CBC 12/20/24 12/21/24 Range/Units 14:37 04:30 WBC 9.1 9.7 (3.8-10.6) Thou/mm3 Hgb 9.8 L 8.9 L (13.5-16.0) g/dL Hct 31.6 L 27.9 L (41.0-53.0) % Plt Count 338 D 284 D (140-440) Thou/mm3 BMP 12/21/24 04:30 Sodium 142 Potassium 4.1 D Chloride 114 H Carbon Dioxide 18.7 L BUN 36 H Creatinine 1.6 H Glucose 91 Calcium 8.4 Liver Function 12/21/24 Range/Units 04:30 Total Bilirubin 0.4 (0.3-1.2) mg/dL AST 28 (0-34) U/L ALT 19 (10-49) U/L Alkaline Phosphatase 93 (46-116) U/L Albumin 2.6 L (3.4-4.8) gm/dL Quality Measures Quality Measures none Medications Home Medications and Allergies Home Medications ?Medication ?Instructions ?Recorded ?Confirmed ?Type clopidogrel 75 mg tablet 75 mg PO QDAY 10/20/23 12/21/24 History isosorbide mononitrate 30 mg 60 mg PO QDAY 10/20/23 12/21/24 History tablet,extended release 24 hr metoprolol tartrate 25 mg tablet 50 mg PO BID 10/20/23 12/21/24 History diltiazem HCl 60 mg 60 mg PO QDAY 07/18/24 12/21/24 History capsule,extended release 12 hr Allergies Allergy/AdvReac Type Severity Reaction Status Date / Time bee pollen Allergy Severe Anaphylaxis Verified 12/15/24 13:39 Sulfa (Sulfonamide Allergy Intermediate Swelling Verified 12/15/24 13:39 Antibiotics) of Lip/Tongue/Throat ampicillin Allergy Unknown Hives Verified 12/15/24 13:39 hydrocodone AdvReac Unknown Nausea Verified 12/15/24 13:39 COLLAGEN Allergy Intermediate Rash Uncoded 12/15/24 13:39 Visit Medications Acetaminophen (Acetaminophen 325 Mg Tablet) 650 mg PO Q6H PRN; Protocol PRN Reason: PAIN OR FEVER > 101 Stop: 01/19/25 16:52 Apixaban (Apixaban 2.5 Mg Tablet) 5 mg PO BID [facility] Stop: 01/19/25 20:59 Last Admin: 12/21/24 09:24 Dose: 5 mg Ascorbic Acid (Ascorbic Acid 250 Mg Tablet) 500 mg PO BID [facility] Stop: 01/19/25 20:59 Last Admin: 12/21/24 09:23 Dose: 500 mg Atorvastatin Calcium (Atorvastatin Calcium 10 Mg Tablet) 40 mg PO QDAY [facility] Stop: 01/19/25 17:29 Last Admin: 12/21/24 09:23 Dose: 40 mg Clopidogrel Bisulfate (Clopidogrel Bisulfate 75 Mg Tablet) 75 mg PO QDAY [facility] Stop: 01/20/25 08:59 Last Admin: 12/21/24 09:24 Dose: 75 mg Diltiazem HCl (Diltiazem 30 Mg Tablet) 30 mg PO BID [facility] Stop: 01/20/25 08:59 Last Admin: 12/21/24 09:23 Dose: 30 mg Doxycycline Hyclate (Doxycycline 100 Mg Tablet) 100 mg PO BID [facility] Stop: 12/27/24 20:59 Last Admin: 12/21/24 09:21 Dose: 100 mg Ceftriaxone Sodium/Dextrose (Rocephin/D5w 2gm) 2 gm in 50 mls @ 100 mls/hr IV QDAY [facility] Stop: 12/27/24 17:14 Last Admin: 12/21/24 09:06 Dose: 100 mls/hr Isosorbide Mononitrate (Isosorbide Er Mononitrate 30 Mg Tabcr) 60 mg PO QDAY [facility] Stop: 01/20/25 08:59 Last Admin: 12/21/24 09:21 Dose: 60 mg Lorazepam (Lorazepam 2 Mg/Ml Vial) 1 mg IVP X1 PRN PRN Reason: FOR MRI Metoprolol Tartrate (Metoprolol Tartrate 25 Mg Tablet) 50 mg PO BID [facility] Stop: 01/19/25 20:59 Last Admin: 12/21/24 09:22 Dose: 50 mg Multivitamins (Multivitamins Tablet) 1 tab PO QDAY [facility] Stop: 01/19/25 17:29 Last Admin: 12/21/24 09:22 Dose: 1 tab Pantoprazole Sodium (Pantoprazole 40 Mg Tablet) 40 mg PO BID [facility] Stop: 01/19/25 20:59 Last Admin: 12/21/24 09:24 Dose: 40 mg Sodium Hypochlorite (Sod Hypochlorite 1/4 Str 473 Ml Btl) 473 ml TOP BID [facility] Stop: 01/20/25 20:59 Zinc Sulfate (Zinc Sulfate 220 Mg Capsule) 220 mg PO QDAY [facility] Stop: 01/04/25 08:59 Last Admin: 12/21/24 09:22 Dose: 220 mg Discontinued Medications Apixaban (Apixaban 2.5 Mg Tablet) 5 mg PO X1 ONE Stop: 12/20/24 17:18 Last Admin: 12/20/24 17:26 Dose: Not Given Hydralazine HCl (Hydralazine Inj 20 Mg/Ml Vial) 10 mg IVP X1 ONE Stop: 12/21/24 00:17 Last Admin: 12/21/24 00:35 Dose: 10 mg Sodium Chloride (Ns) 1,000 mls @ 999 mls/hr IV .Q1H1M ONE Stop: 12/20/24 17:07 Last Infusion: 12/20/24 18:12 Dose: Infused Magnesium Sulfate (Magnesium Sulfate Ivpb) 2 gm in 50 mls @ 25 mls/hr IV X1 ONE Stop: 12/21/24 09:52 Last Admin: 12/21/24 09:07 Dose: 25 mls/hr Lorazepam (Lorazepam 2 Mg/Ml Vial) 0.5 mg IVP PRN PRN PRN Reason: AGITATION OR ANXIETY Melatonin (Melatonin 3 Mg Tablet) 3 mg PO X1 ONE Stop: 12/21/24 01:27 Last Admin: 12/21/24 01:30 Dose: 3 mg Assessment & Plan Plan Nicolas Schrader is 64 yr male with PMH of A-fib on Eliquis, CAD s/p stent on plavix, stroke in May 2023, and CKD stage IIIb, esophageal ulcers presented to the hospital due to worsening confusion. #Acute encephalopathy #Previous stroke Ddx: anemia with GI bleeds, osteomyelitits infection, stroke, seizure. Was recently discharged on 12/19 after diagnosis of osteomyelitis of vertebra. Patient was started on 8-week course of IV antibiotics. and HH nurse noticed mentaton worsend. Currently on Plavix and eliquis. They were held in May and October 2024 for GI bleed. Hemoglobin downtrending to 8.5, hematocrit 27, MCV 89. CT head was negative for acute bleed. MR brain unsuccessful. -Repeat CT head tomorrow to assess for any interval bleed. -Continue Eliquis and Plavix -plan for EEG as workup for encephalopathy. -workup for peripheral neuropathy outpatient -neuro checks q4hr -seizure precautions #Osteomyelitis Ceftriaxone 2 g daily and doxycycline 100 mg twice daily for 8 weeks. #Anemia, normocytic 2/2 #Esophageal ulcers #Gastritis #Castorena's esophagus #CKD stage IIIb #Hx of Atrial fibrillation #Hx of CAD with stents #Hx of CVA with residual deficit Primary care team to manage above conditions and ongoing care needs. The patient's management plan was discussed with my attending physician Dr. Fallon. Nelia Garza, PGY-2 Attending Provider Attestation/Addendum I personally have seen and examined the patient at the bedside and agreed with the resident's findings, assessment and plan of care. Patient's persistent mental status changes and worsening weakness in the lower extremities. Will follow-up with EEG and MRI brain.
[2024-12-21] MEDS: LORazepam 2 MG/ML VIAL 1 MG IVP (17:36)
[2024-12-21] MEDS: SOD HYPOCHLORITE 1/4 STR 473 ML BTL TOP (21:00)
[2024-12-22] VITALS (14 sets, daily range): BP systolic 137–158; BP diastolic 59–94; PULSE 66–98; RESP 12–99; TEMP 36.1–36.5; O2SAT 98–100; BMI 32.9
[2024-12-22 05:59] LABS: Basophils # (Auto) 0.0 Thou/mm3 (0.0-0.2); Basophils % (Auto) 0 % (0-2.5); Eosinophils # (Auto) 0.5 Thou/mm3 (0.0-0.5); Eosinophils % (Auto) 5 % (0-10); Hematocrit 26.2 % (41.0-53.0); Immature Granulocytes Auto 0.26 Thou/mm3 (0.00-0.00); Lymphocytes # (Auto) 0.9 Thou/mm3 (1.0-4.8); Lymphocytes % (Auto) 9 % (10-50); Mean Corpuscular HGB Conc 32.8 g/dl (31.0-37.0); Mean Corpuscular Hemoglobin 28.6 pg (25.0-35.0); Mean Corpuscular Volume 87 fL (80-100); Monocytes # (Auto) 0.5 Thou/mm3 (0.0-0.8); Monocytes % (Auto) 5 % (0-12); Neutrophils # (Auto) 7.6 Thou/mm3 (1.8-7.7); Neutrophils % (Auto) 78 % (37-80); Nucleated Red Blood Cell # 0.00 Thou/mm3 (0.00-0.00); Nucleated Red Blood Cell % 0 /100 WBC (0); Platelet Count 270 Thou/mm3 (140-440); RDW Standard Deviation 59.7 fL (35.1-43.9); Red Blood Count 3.01 Miln/mm3 (4.50-5.90); White Blood Count 9.7 Thou/mm3 (3.8-10.6)
[2024-12-22 06:23] LABS: Hemoglobin 8.6 g/dL (13.5-16.0)
[2024-12-22 06:36] LABS: Alanine Aminotransferase 24 U/L (10-49); Albumin, Serum 2.7 gm/dL (3.4-4.8); Albumin/Globulin Ratio 1.0 (1.2-2.2); Alkaline Phosphatase 97 U/L (46-116); Anion Gap 8 (7-16); Aspartate Amino Transferase 36 U/L (0-34); BUN/Creatinine Ratio 22 Ratio (12-20); Bilirubin,Total 0.3 mg/dL (0.3-1.2); Blood Urea Nitrogen 33 mg/dL (9-23); Calcium 8.4 mg/dL (8.3-10.6); Calcium (Corrected) 9.4 mg/dL (8.5-10.1); Carbon Dioxide 19.8 mMol/L (20.0-31.0); Chloride 111 mMol/L (98-107); Creatinine (Component) 1.5 mg/dL (0.6-1.3); Estimated Creatinine Clearance 50.9 mL/min (>60); Globulin 2.8 gm/dL (2.3-3.5); Glucose 90 mg/dL (74-106); Magnesium 2.0 mg/dL (1.6-2.6); Osmolality,Calculated 284 (275-295); Phosphorous 3.0 mg/dL (2.4-5.1); Potassium 4.1 mMol/L (3.4-5.1); Sodium 139 mMol/L (136-145); Total Protein 5.5 gm/dL (5.7-8.2); eGFR 52 See Note
--- NOTE | 2024-12-22 08:00 | XR_ITS ---
Examination: CT brain head without contrast. 2-D sagittal coronal reconstructions Date and time of exam: December 22, 2024, 11:41 a.m., comparison December 17, 2024 INDICATIONS: Altered mental status today CTDI: vol (mGy): 58.9 DLP: (mGycm): 1294 Technique: Multiple CT axial sections of the brain have been obtained, 5 mm slice thickness. Contrast has not been administered. 2-D sagittal, coronal reconstructions have been obtained Low dose protocols were performed. One or more of the following dose reduction techniques were used; automated exposure control, adjustment of the mA and/or KV according to patient size, use of iterative reconstruction technique. Findings: No significant ventricular enlargement. Minimal bilateral chronic subdural hygromas with no mass effect Intra-axial or extra-axial hemorrhage density is not seen. No mass effect or midline shift Basal cisterns are not remarkable. Fourth ventricle is midline. Cranial vault intact. Impression: Negative for acute hemorrhage, mass effect or midline shift As clinically warranted, if symptoms persist, consider brain MRI follow-up
[2024-12-22] MEDS: METOPROLOL TARTRATE 25 MG TABLET 50 MG PO (08:54)
[2024-12-22] MEDS: ISOSORBIDE ER MONONITRATE 30 MG TABCR 60 MG PO (08:54)
[2024-12-22] MEDS: ZINC SULFATE 220 MG CAPSULE PO (08:54)
[2024-12-22] MEDS: APIXABAN 2.5 MG TABLET 5 MG PO ×2 (08:55→20:16)
[2024-12-22] MEDS: MULTIVITAMINS TABLET 1 TAB PO (08:55)
[2024-12-22] MEDS: CLOPIDOGREL BISULFATE 75 MG TABLET PO (08:55)
[2024-12-22] MEDS: ATORVASTATIN CALCIUM 10 MG TABLET 40 MG PO (08:55)
[2024-12-22] MEDS: PANTOPRAZOLE 40 MG TABLET PO ×2 (08:55→20:17)
[2024-12-22] MEDS: DILTIAZEM 30 MG TABLET PO (08:55)
[2024-12-22] MEDS: DOXYCYCLINE 100 MG TABLET PO ×2 (08:55→20:17)
[2024-12-22] MEDS: SOD HYPOCHLORITE 1/4 STR 473 ML BTL TOP ×2 (08:56→20:22)
[2024-12-22] MEDS: cefTRIAXone/D5w 2gm 2 GM/50 ML BAG IV (08:56)
[2024-12-22] MEDS: ASCORBIC ACID 250 MG TABLET 500 MG PO ×2 (08:56→20:17)
--- NOTE | 2024-12-22 09:09 | ECHO_ITS ---
Transthoracic Echo Report Ht (in): 77 Wt (lb): 135 Exam Location: Echo Lab Status: Inpatient Card Mounter: Katharina Collado Indications: Procedure Performed: BP: 150 / 70 HR: 75 Technical Quality: Technically difficult study MEASUREMENTS (Male / Female) Normal Values 2D ECHO LV Ejection Fraction MOD BP 64.0 % >= 55 % LV Cardiac Index MOD BP 2317.7 cm?/min?m? LV Ejection Fraction MOD 4C 67.0 % LV Cardiac Index MOD 4C 2722.8 cm?/min?m? LV Ejection Fraction 4C AL 67.8 % LV Cardiac Index 4C AL 2855.7 cm?/min?m? LV Ejection Fraction MOD 2C 61.0 % LV Cardiac Index MOD 2C 1879.2 cm?/min?m? LV Ejection Fraction 2C AL 62.5 % LV Cardiac Index 2C AL 1954.8 cm?/min?m? LA Volume Index 31.4 cm?/m? 16 - 28 cm?/m? DOPPLER AV Peak Velocity 222.0 cm/s AV Peak Gradient 19.7 mmHg AV Mean Gradient 9.0 mmHg AV Velocity Time Integral 48.3 cm AI Peak Velocity 354.0 cm/s AI Peak Gradient 50.1 mmHg AI Pressure Half Time 769.0 ms LVOT Peak Velocity 85.0 cm/s LVOT Peak Gradient 2.9 mmHg LVOT Velocity Time Integral 18.6 cm MV Peak Velocity 148.5 cm/s MV Peak Gradient 8.8 mmHg MV Mean Velocity 75.4 cm/s MV Mean Gradient 3.0 mmHg MR Peak Velocity 480.0 cm/s MR Peak Gradient 92.2 mmHg LV E' Lateral Velocity 8.8 cm/s LV E' Septal Velocity 6.3 cm/s PV Peak Velocity 140.0 cm/s PV Peak Gradient 7.8 mmHg FINDINGS Left Ventricle Normal left ventricular size, wall thickness, systolic function with no obvious regional wall motion abnormalities. Unable to evaluate diastolic function due to tehnically difficult study.The ejection fraction is visually estimated at 55-60 %. Right Ventricle Thornton's sign is present. RV size is mildly enlarged with normal systolic function. Left Atrium The left atrium is normal by two-dimensional, color flow and Doppler imaging with no structural abnormalities, no thrombus formation present. Right Atrium The right atrium is normal by two-dimensional imaging, color flow and Doppler imaging with no structural abnormalities, no thrombus formation present. Atrial Septum The interatrial septum appears normal with no evidence of a shunt. Aorta The aorta is normal by two-dimensional, color flow and Doppler interrogation. Mitral Valve Mild mitral annular calcification. [id number] mitral regurgitation. Aortic Valve Mild aortic sclerosis with no hemodynamically significant stenosis. [id number] aortic valve regurgitation. Tricuspid Valve The tricuspid valve is normal by two-dimensional, color flow and Doppler interrogation. There is trace tricuspid valve regurgitation. Pulmonic Valve The pulmonic valve is not well visualized. There is no significant pulmonic valve regurgitation. Vessels Inferior vena cava not well visualized. Pericardium The pericardium is normal by two-dimensional imaging. There is no significant pericardial effusion. CONCLUSIONS Indication: HFrEF Patient not compliant. Suboptimal images. Normal LV size, wall thickness.. Estimated EF at 55-60 %.. RV size is mildly enlarged with normal systolic function. Mild MAC. [id number] MR. Trace TR. Mild aortic sclerosis with mild aottic valve stenosis. [id number] Aortic regurgitation IVC not well visualized. Coni Knapp (Electronically Signed) Final Date: 23 December 2024 11:37
--- NOTE | 2024-12-22 09:11 | ESPR_ITS ---
Documentation for date of: 12/22/24 Subjective - Hospitalist Subjective Interval history: Patient is awake, alert however disoriented, unable to hold conversation. Hemoglobin remained stable, lactate normalized, CT head and EEG pending. No other significant acute events overnight. Review of Systems Review of Systems Narrative Review of Systems: Unable to obtain due to patient's mentation Exam Vital Signs Temp Pulse Resp BP Pulse Ox O2 Del Method 97.7 F 79 18 158/77 H 100 Room Air 12/22/24 07:56 12/22/24 08:55 12/22/24 07:56 12/22/24 08:55 12/22/24 07:56 12/22/24 07:56 Additional findings Additional findings: General: Alert and oriented x1, No apparent distress. Skin: Intact, Warm, no rashes. 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 HEENT: Normocephalic, Atraumatic. Normal neck range of motion, Supple. Trachea midline. Severe Hearing loss b/l. Respiratory: Lungs are clear to auscultation, Breath sounds are equal bilaterally with equal chest expansion. Cardiovascular: irregular rhythm, normal S1, S2, No murmurs. Distal pulses 2+. Abdomen: Abdomen non-distended, without erythema, or lesions. Normotensive bowel sounds. Palpation soft, nontender in all four quadrants. No organomagely. Absent rigidity, guarding, or rebound. Musculoskeletal: No erythema, swelling, tenderness of any joints. No edema of BLE. DP pulses +2/3 b/l. Patient cannot move his b/l extremities but can sense gross touch L3-S1 dermatomes b/l. Neurologic: CN II-XII grossly intact, no focal deficits, alert, not following commands Objective - Hospitalist Labs Diagram: 12/22/24 05:26 12/22/24 05:26 Labs: Laboratory Results - last 24 hr 12/22/24 05:26 WBC 9.7 RBC 3.01 L Hgb 8.6 L Hct 26.2 L MCV 87 MCH 28.6 MCHC 32.8 RDW Std Deviation 59.7 H Plt Count 270 Neut % (Auto) 78 Lymph % (Auto) 9 L Giles % (Auto) 5 Eos % (Auto) 5 Baso % (Auto) 0 Neut # (Auto) 7.6 Lymph # (Auto) 0.9 L Giles # (Auto) 0.5 Eos # (Auto) 0.5 Baso # (Auto) 0.0 Immature Gran # (Auto) 0.26 H Absolute Nucleated RBC 0.00 Immature Gran % 3 H Nucleated RBC % 0 Sodium 139 Potassium 4.1 Chloride 111 H Carbon Dioxide 19.8 L Anion Gap 8 BUN 33 H Creatinine 1.5 H Estim Creat Clear Calc 50.9 L eGFR 52 L BUN/Creatinine Ratio 22 H Glucose 90 Calculated Osmolality 284 Calcium 8.4 Corrected Calcium 9.4 Phosphorus 3.0 Magnesium 2.0 Total Bilirubin 0.3 AST 36 H ALT 24 Alkaline Phosphatase 97 Total Protein 5.5 L Albumin 2.7 L Globulin 2.8 Albumin/Globulin Ratio 1.0 L Assessment & Plan Patient Synopsis A 64-year-old Hx of HTN, AF, HFrEF, CAD s/p PCI, CKD 3B, and CVA, in May 2023 decubitus ulcers presented with AMS and admitted for acute encepahlophaty. Patient had a recent hospital admission from 12/15 to 12/19 for thoracic vertebral osteomyelitis. Also noted to have severe normocytic anemia, had EGD inpatient revealing esophageal ulcers and mucosal changes consistent with Castorena's esophagus. Neurology on board, patient unable to have MRI due to his mentation despite sedatives. EEG pending, unclear etiology. -Will continue Rocephin 2 g daily along with doxycycline for vertebral osteomyelitis. - Continue IV Protonix twice daily, GI on board. Remained in AF rate well- controlled - increase metoprolol to 100 mg daily, discontinue diltiazem due to HFrEF, -Holding ARB/MRA/SGLT2 inhibitors due to renal dysfunction -continue Eliquis. Continue Plavix in the setting of recent PCI. - Will get TTE, add on GDMT as tolerated. As needed bisacodyl for constipation. Time Spent with Patient Time: Total time spent is greater than 50% in coordination of care (as documented) at patient's floor/unit and/or counseling patient: Time with patient: Greater than 35 minutes Reason for Continued Stay Reason for continued stay: further dx testing and IV antibiotics Quality Measures Quality Measures none
--- NOTE | 2024-12-22 15:36 | PC.SS ---
Rounding Note: Treatment plan to address UTI and PNA. Possible d/c tomorrow.
[2024-12-22] MEDS: METOPROLOL TARTRATE 25 MG TABLET 100 MG PO (20:17)
[2024-12-22] MEDS: MELATONIN 3 MG TABLET PO (22:20)
--- NOTE | 2024-12-22 22:26 | PC.NURSE ---
MD notified regarding patient being restless. Per MD go ahead and give melatonin 3mg X1 to the patient.
--- NOTE | 2024-12-22 23:54 | PD.NEUROPROG ---
Documentation for date of: 12/22/24 Subjective Subjective Interval history: Patient was seen in telemetry today at the bedside. Continues to be confused and disoriented. Continues to have generalized weakness more so in the lower extremities. Exam - Neurology Vital Signs Temp Pulse Resp BP Pulse Ox O2 Del Method 97.2 F 74 18 145/76 H 98 Room Air 12/22/24 23:49 12/22/24 23:49 12/22/24 23:49 12/22/24 23:49 12/22/24 23:49 12/22/24 23:49 Narrative Exam GENERAL APPEARANCE: Well hydrated, well-nourished in no acute distress. HEENT: Normocephalic, atraumatic, extraocular movements intact. Pupils: Equal reacting to light and accommodation NECK: Supple, no JVD or bruits. CARDIOVASULAR: Heart: S1, S2 heard, regular without S3-S4 or murmur no rubs or gallops. LUNGS/CHEST: Clear to auscultation bilaterally. No rails, rhonchi, or wheezing. Normal inspection. ABDOMEN: Soft, nontender, with normal bowel sounds. No pulsatile masses. No rebound, rigidity, or guarding. Normal inspection and palpation. EXTREMITIES: Normal inspection and palpation. No edema, clubbing or cyanosis. SKIN: Warm and dry without rashes. Normal inspection. MUSCULOSKELETAL: No cervical, thoracic, lumbar or midline bony tenderness. Normal inspection. NEURO: Alert, awake and oriented x1. Cranial nerves: II through XII grossly intact. Speech and language: Significant language deficit noted as he repeats himself. Motor system: Tone and bulk: Normal: Strength: Moves both upper extremities, significant weakness in both lower extremities both proximally and distally. Deep tendon reflexes: 1+ bilaterally symmetrical. Plantar reflex: Downgoing bilaterally. Sensory system: Intact to pinprick sensation bilaterally. Coordination: Intact to [id number]-rujxw and efdx-fgve-[id number] test bilaterally. No ataxia, no dysmetria, or dysdiadochokinesia noted. No intention tremors noted. Rest of the exam: Limited. No signs of meningeal irritation noted. PSYCHIATRIC: Normal mood and affect. Objective Labs 12/23/24 05:52 12/23/24 05:52 Labs: Laboratory Results - last 24 hr 12/22/24 05:26 WBC 9.7 RBC 3.01 L Hgb 8.6 L Hct 26.2 L MCV 87 MCH 28.6 MCHC 32.8 RDW Std Deviation 59.7 H Plt Count 270 Neut % (Auto) 78 Lymph % (Auto) 9 L Dickey % (Auto) 5 Eos % (Auto) 5 Baso % (Auto) 0 Neut # (Auto) 7.6 Lymph # (Auto) 0.9 L Dickey # (Auto) 0.5 Eos # (Auto) 0.5 Baso # (Auto) 0.0 Immature Gran # (Auto) 0.26 H Absolute Nucleated RBC 0.00 Immature Gran % 3 H Nucleated RBC % 0 Sodium 139 Potassium 4.1 Chloride 111 H Carbon Dioxide 19.8 L Anion Gap 8 BUN 33 H Creatinine 1.5 H Estim Creat Clear Calc 50.9 L eGFR 52 L BUN/Creatinine Ratio 22 H Glucose 90 Calculated Osmolality 284 Calcium 8.4 Corrected Calcium 9.4 Phosphorus 3.0 Magnesium 2.0 Total Bilirubin 0.3 AST 36 H ALT 24 Alkaline Phosphatase 97 Total Protein 5.5 L Albumin 2.7 L Globulin 2.8 Albumin/Globulin Ratio 1.0 L Assessment & Plan Additional Assessment & Plan Additional Plan: Nicolas Schrader is 64 yr male with PMH of A-fib on Eliquis, CAD s/p stent on plavix, stroke in May 2023, and CKD stage IIIb, esophageal ulcers presented to the hospital due to worsening confusion. #Acute encephalopathy #Previous stroke Ddx: anemia with GI bleeds, osteomyelitits infection, stroke, seizure. Was recently discharged on 12/19 after diagnosis of osteomyelitis of vertebra. Patient was started on 8-week course of IV antibiotics. and HH nurse noticed mentaton worsend. Currently on Plavix and eliquis. They were held in May and October 2024 for GI bleed. Hemoglobin downtrending to 8.5, hematocrit 27, MCV 89. CT head was negative for acute bleed. MR brain unsuccessful. -Repeat CT head tomorrow to assess for any interval bleed. -Continue Eliquis and Plavix - EEG showed diffuse slowing but no epileptiform discharges: Patient most likely is developing vascular dementia. -workup for peripheral neuropathy outpatient -neuro checks q4hr -seizure precautions - Encouraged him to participate with physical therapy to help with strengthening his lower extremities #Osteomyelitis Ceftriaxone 2 g daily and doxycycline 100 mg twice daily for 8 weeks. #Anemia, normocytic 2/2 #Esophageal ulcers #Gastritis #Castorena's esophagus #CKD stage IIIb #Hx of Atrial fibrillation #Hx of CAD with stents #Hx of CVA with residual deficit Primary care team to manage above conditions and ongoing care needs.
[2024-12-23] VITALS (10 sets, daily range): BP systolic 143–171; BP diastolic 81–101; PULSE 78–102; RESP 12–20; TEMP 35.9–36.8; O2SAT 98–100; BMI 32.9
[2024-12-23 06:11] LABS: Basophils # (Auto) 0.0 Thou/mm3 (0.0-0.2); Basophils % (Auto) 0 % (0-2.5); Eosinophils # (Auto) 0.4 Thou/mm3 (0.0-0.5); Eosinophils % (Auto) 6 % (0-10); Hematocrit 25.7 % (41.0-53.0); Immature Granulocytes Auto 0.25 Thou/mm3 (0.00-0.00); Lymphocytes # (Auto) 0.8 Thou/mm3 (1.0-4.8); Lymphocytes % (Auto) 11 % (10-50); Mean Corpuscular HGB Conc 31.9 g/dl (31.0-37.0); Mean Corpuscular Hemoglobin 28.3 pg (25.0-35.0); Mean Corpuscular Volume 89 fL (80-100); Monocytes # (Auto) 0.4 Thou/mm3 (0.0-0.8); Monocytes % (Auto) 6 % (0-12); Neutrophils # (Auto) 5.0 Thou/mm3 (1.8-7.7); Neutrophils % (Auto) 73 % (37-80); Nucleated Red Blood Cell # 0.00 Thou/mm3 (0.00-0.00); Nucleated Red Blood Cell % 0 /100 WBC (0); Platelet Count 234 Thou/mm3 (140-440); RDW Standard Deviation 59.6 fL (35.1-43.9); Red Blood Count 2.90 Miln/mm3 (4.50-5.90); White Blood Count 6.9 Thou/mm3 (3.8-10.6)
[2024-12-23 06:17] LABS: Hemoglobin 8.2 g/dL (13.5-16.0)
[2024-12-23 06:34] LABS: Alanine Aminotransferase 36 U/L (10-49); Albumin, Serum 2.5 gm/dL (3.4-4.8); Albumin/Globulin Ratio 0.9 (1.2-2.2); Alkaline Phosphatase 94 U/L (46-116); Anion Gap 10 (7-16); Aspartate Amino Transferase 44 U/L (0-34); BUN/Creatinine Ratio 20 Ratio (12-20); Bilirubin,Total 0.3 mg/dL (0.3-1.2); Blood Urea Nitrogen 30 mg/dL (9-23); Calcium 8.2 mg/dL (8.3-10.6); Calcium (Corrected) 9.4 mg/dL (8.5-10.1); Carbon Dioxide 20.2 mMol/L (20.0-31.0); Chloride 109 mMol/L (98-107); Creatinine (Component) 1.5 mg/dL (0.6-1.3); Estimated Creatinine Clearance 50.9 mL/min (>60); Globulin 2.7 gm/dL (2.3-3.5); Glucose 88 mg/dL (74-106); Magnesium 1.7 mg/dL (1.6-2.6); Osmolality,Calculated 282 (275-295); Phosphorous 2.8 mg/dL (2.4-5.1); Potassium 4.1 mMol/L (3.4-5.1); Sodium 139 mMol/L (136-145); Total Protein 5.2 gm/dL (5.7-8.2); eGFR 52 See Note
[2024-12-23] MEDS: ISOSORBIDE ER MONONITRATE 30 MG TABCR 60 MG PO (09:17)
[2024-12-23] MEDS: PANTOPRAZOLE 40 MG TABLET PO ×2 (09:17→21:46)
[2024-12-23] MEDS: ZINC SULFATE 220 MG CAPSULE PO (09:17)
[2024-12-23] MEDS: DOXYCYCLINE 100 MG TABLET PO ×2 (09:17→21:46)
[2024-12-23] MEDS: ATORVASTATIN CALCIUM 10 MG TABLET 40 MG PO (09:17)
[2024-12-23] MEDS: APIXABAN 2.5 MG TABLET 5 MG PO ×2 (09:18→21:35)
[2024-12-23] MEDS: ASCORBIC ACID 250 MG TABLET 500 MG PO ×2 (09:18→21:40)
[2024-12-23] MEDS: CLOPIDOGREL BISULFATE 75 MG TABLET PO (09:18)
[2024-12-23] MEDS: METOPROLOL TARTRATE 25 MG TABLET 100 MG PO ×2 (09:18→21:45)
[2024-12-23] MEDS: MULTIVITAMINS TABLET 1 TAB PO (09:19)
[2024-12-23] MEDS: cefTRIAXone/D5w 2gm 2 GM/50 ML BAG IV (10:34)
[2024-12-23] MEDS: LOSARTAN POTASSIUM 25 MG TABLET PO (10:34)
[2024-12-23] MEDS: SOD HYPOCHLORITE 1/4 STR 473 ML BTL TOP ×2 (13:51→21:46)
--- NOTE | 2024-12-23 14:14 | ESPR_ITS ---
Documentation for date of: 12/23/24 Subjective - Hospitalist Subjective Interval history: No significant events overnight, hemodynamically stable. Denies chest pain, shortness of breath, palpitations dizziness. Review of Systems Review of Systems Narrative Review of Systems: Negative except as above Exam Vital Signs Temp Pulse Resp BP Pulse Ox O2 Del Method 97 F 84 20 143/81 H 100 Room Air 12/23/24 12:00 12/23/24 12:00 12/23/24 12:00 12/23/24 12:00 12/23/24 12:00 12/23/24 08:00 Additional findings Additional findings: General: Alert and oriented x1, No apparent distress. Skin: Intact, Warm, no rashes. 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 HEENT: Normocephalic, Atraumatic. Normal neck range of motion, Supple. Trachea midline. Severe Hearing loss b/l. Respiratory: Lungs are clear to auscultation, Breath sounds are equal bilaterally with equal chest expansion. Cardiovascular: irregular rhythm, normal S1, S2, No murmurs. Distal pulses 2+. Abdomen: Abdomen non-distended, without erythema, or lesions. Normotensive bowel sounds. Palpation soft, nontender in all four quadrants. No organomagely. Absent rigidity, guarding, or rebound. Musculoskeletal: No erythema, swelling, tenderness of any joints. No edema of BLE. DP pulses +2/3 b/l. Patient cannot move his b/l extremities but can sense gross touch L3-S1 dermatomes b/l. Neurologic: CN II-XII grossly intact, no focal deficits, alert, not following commands Objective - Hospitalist Labs Diagram: 12/23/24 05:52 12/23/24 05:52 Labs: Laboratory Results - last 24 hr 12/23/24 05:52 WBC 6.9 RBC 2.90 L Hgb 8.2 L Hct 25.7 L MCV 89 MCH 28.3 MCHC 31.9 RDW Std Deviation 59.6 H Plt Count 234 D Neut % (Auto) 73 Lymph % (Auto) 11 [place] % (Auto) 6 Eos % (Auto) 6 Baso % (Auto) 0 Neut # (Auto) 5.0 Lymph # (Auto) 0.8 L [place] # (Auto) 0.4 Eos # (Auto) 0.4 Baso # (Auto) 0.0 Immature Gran # (Auto) 0.25 H Absolute Nucleated RBC 0.00 Immature Gran % 4 H Nucleated RBC % 0 Sodium 139 Potassium 4.1 Chloride 109 H Carbon Dioxide 20.2 Anion Gap 10 BUN 30 H Creatinine 1.5 H Estim Creat Clear Calc 50.9 L eGFR 52 L BUN/Creatinine Ratio 20 Glucose 88 Calculated Osmolality 282 Calcium 8.2 L Corrected Calcium 9.4 Phosphorus 2.8 Magnesium 1.7 Total Bilirubin 0.3 AST 44 H ALT 36 Alkaline Phosphatase 94 Total Protein 5.2 L Albumin 2.5 L Globulin 2.7 Albumin/Globulin Ratio 0.9 L Assessment & Plan Patient Synopsis A 64-year-old Hx of HTN, AF, HFrEF, CAD s/p PCI, CKD 3B, and CVA, in May 2023 decubitus ulcers presented with AMS and admitted for acute encepahlophaty. Patient had a recent hospital admission from 12/15 to 12/19 for thoracic vertebral osteomyelitis. Also noted to have severe normocytic anemia, had EGD inpatient revealing esophageal ulcers and mucosal changes consistent with Castorena's esophagus. Neurology on board, patient unable to have MRI due to his mentation despite sedatives. Repeat CT head did not show any interval changes. TTE did reveal preserved EF with moderate MR and moderate AI. EEG pending, unclear etiology. -Will continue Rocephin 2 g daily along with doxycycline for vertebral osteomyelitis. -Continue IV Protonix twice daily, GI on board. Remained in AF rate well- controlled -increased metoprolol to 100 mg daily, discontinue diltiazem due to HFrEF, -Started on losartan 25 mg daily for HTN -Holding SGLT2 inhibitors due to renal dysfunction -continue Eliquis. Continue Plavix in the setting of recent PCI. - Follow-up with further cardiology recommendations, continue GDMT as tolerated. As needed bisacodyl for constipation. Plan for discharge to home with home health however reports that she is not able to take care of him at home, will have evaluation for SNF placement Time Spent with Patient Time: Total time spent is greater than 50% in coordination of care (as documented) at patient's floor/unit and/or counseling patient: Time with patient: 25 - 35 minutes Reason for Continued Stay Reason for continued stay: further monitoring and continue IV diuretic Quality Measures Quality Measures none
--- NOTE | 2024-12-23 15:38 | PC.SS ---
Road Mixer Operator (TENISHA) Michelle informed by Dr. Centeno that patient's could not take him home. TENISHA met with patient's significant other, Sheila, at bedside. SW introduced self, role and reason for visit. Sheila reported that she is patient's long-term significant other; they are not . Sheila reported that she is also patient's medical decision maker in his [employer] Directive. Sheila reported that she has several concerns regarding medical studies; for example, what was the EEG not completed, what was delaying the MRI, what type of antibiotics was patient receiving, why did he receive an antipsychotic the night of his admission. TENISHA explained that those are questions that should be answered by the attending physician, Dr. Centeno. Sheila reported that today is the first day that patient is able to recognize her and speak in full sentences that are sensical. Sheila reported that at this time, she cannot take care of patient at home due to his inability to complete basic ADLs alone, such as, feeding himself, and being able to notify [facility] of needing a brief change. TENISHA and Sheila explored discharge options. Sheila would like for patient to attend SNF for a few days/weeks. However, she is concerned regarding patient exhausting his Medicare days. Patient does have [employer] as a secondary insurance. Sheila is in agreement for TENISHA to send referral packets for short-term SNF placement. Dr. Centeno was notified and he was able to meet with Sheila to discuss medical concerns for this admission.
--- NOTE | 2024-12-23 23:56 | PD.NEUROPROG ---
Documentation for date of: 12/23/24 Subjective Subjective Interval history: Patient was seen in telemetry today at the bedside. Continues to be confused and disoriented. Continues to have generalized weakness more so in the lower extremities. Exam - Neurology Vital Signs Temp Pulse Resp BP Pulse Ox O2 Del Method 96.7 F L 89 15 171/89 H 99 Room Air 12/23/24 20:00 12/23/24 21:45 12/23/24 20:00 12/23/24 21:45 12/23/24 20:00 12/23/24 20:00 Narrative Exam GENERAL APPEARANCE: Well hydrated, well-nourished in no acute distress. HEENT: Normocephalic, atraumatic, extraocular movements intact. Pupils: Equal reacting to light and accommodation NECK: Supple, no JVD or bruits. CARDIOVASULAR: Heart: S1, S2 heard, regular without S3-S4 or murmur no rubs or gallops. LUNGS/CHEST: Clear to auscultation bilaterally. No rails, rhonchi, or wheezing. Normal inspection. ABDOMEN: Soft, nontender, with normal bowel sounds. No pulsatile masses. No rebound, rigidity, or guarding. Normal inspection and palpation. EXTREMITIES: Normal inspection and palpation. No edema, clubbing or cyanosis. SKIN: Warm and dry without rashes. Normal inspection. MUSCULOSKELETAL: No cervical, thoracic, lumbar or midline bony tenderness. Normal inspection. NEURO: Alert, awake and oriented x1. Cranial nerves: II through XII grossly intact. Speech and language: Significant language deficit noted as he repeats himself. Motor system: Tone and bulk: Normal: Strength: Moves both upper extremities, significant weakness in both lower extremities both proximally and distally. Deep tendon reflexes: 1+ bilaterally symmetrical. Plantar reflex: Downgoing bilaterally. Sensory system: Intact to pinprick sensation bilaterally. Coordination: Intact to vtnydu-hsok-hjgai and peut-scdj-kiaz test bilaterally. No ataxia, no dysmetria, or dysdiadochokinesia noted. No intention tremors noted. Rest of the exam: Limited. No signs of meningeal irritation noted. PSYCHIATRIC: Normal mood and affect. Objective Labs 12/23/24 05:52 12/23/24 05:52 Labs: Laboratory Results - last 24 hr 12/23/24 05:52 WBC 6.9 RBC 2.90 L Hgb 8.2 L Hct 25.7 L MCV 89 MCH 28.3 MCHC 31.9 RDW Std Deviation 59.6 H Plt Count 234 D Neut % (Auto) 73 Lymph % (Auto) 11 [place] % (Auto) 6 Eos % (Auto) 6 Baso % (Auto) 0 Neut # (Auto) 5.0 Lymph # (Auto) 0.8 L [place] # (Auto) 0.4 Eos # (Auto) 0.4 Baso # (Auto) 0.0 Immature Gran # (Auto) 0.25 H Absolute Nucleated RBC 0.00 Immature Gran % 4 H Nucleated RBC % 0 Sodium 139 Potassium 4.1 Chloride 109 H Carbon Dioxide 20.2 Anion Gap 10 BUN 30 H Creatinine 1.5 H Estim Creat Clear Calc 50.9 L eGFR 52 L BUN/Creatinine Ratio 20 Glucose 88 Calculated Osmolality 282 Calcium 8.2 L Corrected Calcium 9.4 Phosphorus 2.8 Magnesium 1.7 Total Bilirubin 0.3 AST 44 H ALT 36 Alkaline Phosphatase 94 Total Protein 5.2 L Albumin 2.5 L Globulin 2.7 Albumin/Globulin Ratio 0.9 L Assessment & Plan Additional Assessment & Plan Additional Plan: Nicolas Schrader is 64 yr male with PMH of A-fib on Eliquis, CAD s/p stent on plavix, stroke in May 2023, and CKD stage IIIb, esophageal ulcers presented to the hospital due to worsening confusion. #Acute encephalopathy #Previous stroke Ddx: anemia with GI bleeds, osteomyelitits infection, stroke, seizure. Was recently discharged on 12/19 after diagnosis of osteomyelitis of vertebra. Patient was started on 8-week course of IV antibiotics. and HH nurse noticed mentaton worsend. Currently on Plavix and eliquis. They were held in May and October 2024 for GI bleed. Hemoglobin downtrending to 8.5, hematocrit 27, MCV 89. CT head was negative for acute bleed. MR brain unsuccessful. -Repeat CT head tomorrow to assess for any interval bleed. -Continue Eliquis and Plavix - EEG showed diffuse slowing but no epileptiform discharges: Patient most likely is developing vascular dementia. -workup for peripheral neuropathy outpatient -neuro checks q4hr -seizure precautions - Encouraged him to participate with physical therapy to help with strengthening his lower extremities #Osteomyelitis Ceftriaxone 2 g daily and doxycycline 100 mg twice daily for 8 weeks. #Anemia, normocytic 2/2 #Esophageal ulcers #Gastritis #Castorena's esophagus #CKD stage IIIb #Hx of Atrial fibrillation #Hx of CAD with stents #Hx of CVA with residual deficit Primary care team to manage above conditions and ongoing care needs.
[2024-12-24] VITALS (13 sets, daily range): BP systolic 114–179; BP diastolic 73–98; PULSE 77–123; RESP 15–19; TEMP 36.1–36.2; O2SAT 95–99; BMI 33.5
[2024-12-24] MEDS: LABETALOL INJ 5 MG/ML VIAL 20 ML 10 MG IVP (04:52)
[2024-12-24] MEDS: LOSARTAN POTASSIUM 25 MG TABLET PO (09:40)
[2024-12-24] MEDS: cefTRIAXone/D5w 2gm 2 GM/50 ML BAG IV (09:40)
[2024-12-24] MEDS: CLOPIDOGREL BISULFATE 75 MG TABLET PO (09:42)
[2024-12-24] MEDS: ZINC SULFATE 220 MG CAPSULE PO (09:42)
[2024-12-24] MEDS: ISOSORBIDE ER MONONITRATE 30 MG TABCR 60 MG PO (09:43)
[2024-12-24] MEDS: APIXABAN 2.5 MG TABLET 5 MG PO ×2 (09:43→21:16)
[2024-12-24] MEDS: DOXYCYCLINE 100 MG TABLET PO ×2 (09:43→21:16)
[2024-12-24] MEDS: PANTOPRAZOLE 40 MG TABLET PO ×2 (09:43→21:17)
[2024-12-24] MEDS: METOPROLOL TARTRATE 25 MG TABLET 100 MG PO ×2 (09:44→21:17)
[2024-12-24] MEDS: ASCORBIC ACID 250 MG TABLET 500 MG PO ×2 (09:44→21:16)
[2024-12-24] MEDS: ATORVASTATIN CALCIUM 10 MG TABLET 40 MG PO (09:45)
[2024-12-24] MEDS: MULTIVITAMINS TABLET 1 TAB PO (09:45)
[2024-12-24] MEDS: SOD HYPOCHLORITE 1/4 STR 473 ML BTL TOP ×2 (09:50→21:25)
--- NOTE | 2024-12-24 11:39 | XR_ITS ---
Examination: Abdomen AP single view Technique: AP portable supine abdomen, single view Exam date and time: December 24, 2024, 1244 hours INDICATIONS: Distended abdomen today FINDINGS: Air distended small bowel loops in the left abdomen Moderate stool throughout the colon No free air Left ventricle appears prominent IMPRESSION: Findings most consistent with moderate small bowel ileus but clinical correlation advised
--- NOTE | 2024-12-24 12:47 | PC.SS ---
PASRR completed, and downloaded. SS sent via [employer] to Joana at [facility]. SS pending PT eval and ID note or progress note from Team stating IV stop date and information. SS sent via [employer], wound care information and H&P. SS notified Joana at [facility] once information is received will forward to her.
--- NOTE | 2024-12-24 13:24 | ESPR_ITS ---
<Statement entered by Yadira Alatorre MD - 12/24/24 15:47> 64-year-old male with past medical history of hypertension, A-fib on Eliquis, coronary artery disease status of stent placement was admitted for acute encephalopathy most likely metabolic in the setting of underlying infection versus worsening dementia Patient was seen and examined at bedside. No acute overnight events. Labs and vitals were reviewed. #Chronic osteomyelitis ESR and CRP negative Patient did receive right IJ for 8 weeks of Rocephin and doxycycline from the date of surgery to complete Abx course( Per ) Patient will need to complete antibiotic course untilfebruary and will be DC to SNF/ Pending insurance authorization. #Acute encephalopathy DDx metabolic versus worsening underlying dementia Repeat head CT is negative EEG abnormal. Diffuse slowing is suggestive of diffuse encephalopathy of metabolic, degenerative or vascular origin. No epileptiform discharge noted -continue current managemetn. follow Neuro recs #Hypertension Continue metoprolol 100 daily Continue losartan 25 #A-fib Continue metoprolol and Eliquis I personally saw and examined the patient and discussed the assessment and plan with the entire medicine team, including my attending , Yadira Alatorre M.D. PGY-3 Disclaimer: Despite multiple revisions, due to the dictation software being used, the document bellow may not be free of grammatical errors including phonetic/typographic errors. However, this does not deter from our commitment to providing health care in the patient's best interest in mind. Documentation for date of: 12/24/24 Subjective Subjective Interval history: Patient seen at bedside. No acute overnight events. The patient is very talkative today. Alert and oriented x 1. Patient had suprapubic abdominal pain for which bladder scan was done and that showed urinary retention with approximately 800 cc. Tenorio catheter was inserted and emptied 2L. The patient is continuing the ID-recommended 8-week course of antibiotics for vertebral osteomyelitis, receiving both IV Ceftriaxone and P.O. Doxycycline, with the total course scheduled to conclude on February 12, 2025. Exam Vital Signs Temp Pulse Resp BP Pulse Ox O2 Del Method 97.1 F 123 H 19 137/84 H 97 Room Air 12/24/24 11:50 12/24/24 11:50 12/24/24 11:50 12/24/24 11:50 12/24/24 11:50 12/24/24 11:50 Narrative Exam General: Alert and oriented x1, No apparent distress. Skin: Intact, Warm, no rashes. 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 HEENT: Normocephalic, Atraumatic. Normal neck range of motion, Supple. Trachea midline. Severe Hearing loss b/l. Respiratory: Lungs are clear to auscultation, Breath sounds are equal bilaterally with equal chest expansion. Cardiovascular: irregular rhythm, normal S1, S2, No murmurs. Distal pulses 2+. Abdomen: distended, tender to palpation suprapubic. Normotensive bowel sounds x4. Percussion tympanic. No organomagely. Musculoskeletal: No erythema, swelling, tenderness of any joints. No edema of BLE. DP pulses +2/3 b/l. Patient cannot move his b/l extremities but can sense gross touch L3-S1 dermatomes b/l. Neurologic: CN II-XII grossly intact, no focal deficits, alert, following limited commands Objective Labs 12/25/24 06:19 12/25/24 06:19 Quality Measures Quality Measures none Assessment & Plan Assessment Current Active Medications: Generic Name Dose Route Start Last Admin Trade Name Freq PRN Reason Stop Dose Admin Acetaminophen 650 mg 12/20/24 16:53 Acetaminophen 325 Mg Tablet PO 01/19/25 16:52 Q6H PRN PAIN OR FEVER > 101 Protocol Apixaban 5 mg 12/20/24 21:00 12/24/24 09:43 Apixaban 2.5 Mg Tablet PO 01/19/25 20:59 5 mg BID HANNAH Administration Ascorbic Acid 500 mg 12/20/24 21:00 12/24/24 09:44 Ascorbic Acid 250 Mg Tablet PO 01/19/25 20:59 500 mg BID HANNAH Administration Atorvastatin Calcium 40 mg 12/20/24 17:30 12/24/24 09:45 Atorvastatin Calcium 10 Mg Tablet PO 01/19/25 17:29 40 mg QDAY HANNAH Administration Clopidogrel Bisulfate 75 mg 12/21/24 09:00 12/24/24 09:42 Clopidogrel Bisulfate 75 Mg Tablet PO 01/20/25 08:59 75 mg QDAY HANNAH Administration Doxycycline Hyclate 100 mg 12/20/24 21:00 12/24/24 09:43 Doxycycline 100 Mg Tablet PO 12/27/24 20:59 100 mg BID HANNAH Administration Ceftriaxone Sodium/Dextrose 2 gm in 50 mls @ 100 mls/hr 12/20/24 17:15 12/24/24 09:40 Rocephin/D5w 2gm IV 12/27/24 17:14 100 mls/hr QDAY HANNAH Administration Isosorbide Mononitrate 60 mg 12/21/24 09:00 12/24/24 09:43 Isosorbide Er Mononitrate 30 Mg Tabcr PO 01/20/25 08:59 60 mg QDAY HANNAH Administration Losartan Potassium 25 mg 12/23/24 10:00 12/24/24 09:40 Losartan Potassium 25 Mg Tablet PO 01/22/25 09:59 25 mg QDAY HANNAH Administration Metoprolol Tartrate 100 mg 12/22/24 21:00 12/24/24 09:44 Metoprolol Tartrate 25 Mg Tablet PO 01/21/25 20:59 100 mg BID HANNAH Administration Multivitamins 1 tab 12/20/24 17:30 12/24/24 09:45 Multivitamins Tablet PO 01/19/25 17:29 1 tab QDAY HANNAH Administration Pantoprazole Sodium 40 mg 12/20/24 21:00 12/24/24 09:43 Pantoprazole 40 Mg Tablet PO 01/19/25 20:59 40 mg BID HANNAH Administration Sodium Hypochlorite 473 ml 12/21/24 21:00 12/24/24 09:50 Sod Hypochlorite 1/4 Str 473 Ml Btl TOP 01/20/25 20:59 1 appln BID HANNAH Administration Zinc Sulfate 220 mg 12/21/24 09:00 12/24/24 09:42 Zinc Sulfate 220 Mg Capsule PO 01/04/25 08:59 220 mg QDAY HANNAH Administration Plan 64-year-old past medical history of hypertension, atrial fibrillation on Eliquis, coronary artery disease with stent placement, and a stroke in May 2023. Patient admitted for acute encepahlophaty. Patient had a recent hospital admission from 12/15 to 12/19. #Acute encephalopathy #Chronic osteomyelitis #?Dementia DDx: Infectious etiology from osteomyelitis vs urinary retention vs constipation vs primary PLOW SHAKER lesions, unlikely metabolic ID from last admission recommended 8 weeks of antibiotics with ceftriaxone 2 g daily and doxycycline 100 mg twice daily for chronic osteomyelitis. Last day of abx is Feb 12, 2025. Patient has a tunneled right IJ central venous catheter in place MRI brain unsuccessful. Repeat CT head 12/22 showed no bleed EEG done 12/24 and shows diffuse slowing suggestive of metabolic, degenerative, or vascular origin KUB 12/24 showed moderate stool burden Bladder scan 12/24 showed urinary retention, tenorio inserted and emptied 2L Plan: ? Neurology consulted, Dr. Fallon, see recs ? Neuro checks Q4h ? Continue Rocephin 2 g daily and doxycycline 100 mg twice daily per ID recommendations, until Feb 12 2025 - Bowel regimen - Tenorio inserted, monitor output #Hx of Decubitus Ulcer According to last admission mechanical supervisor reported nonpurulent drainage from a midline lower thoracic decubitus ulcer, non erythematous Patient was hospitalized in [place] 06/2024 for I&D and restitch of an draining abscess that had developed in the same site, and spent 90 days in recovery with regular wound care follow up. -Wound care -Watch for signs of infection closely #Anemia, normocytic /2 #Esophageal ulcers #Gastritis #Castorena's esophagus Hgb on presentation 9.8 Iron 12/16 showed levels low, ferritin high EGD performed 12/17 showed esophageal ulcers, mucosal changes consistent with Castorena's esophagus, gastritis -Watch Hgb closely, transfuse if <7 -Protonix 40 mg IV every 12 hours #CKD stage IIIb Creatinine 1.9, which is around baseline of 1.8. Plan: ?Renally dose meds, avoid overdiuresis, or nephrotoxins #Hx of Atrial fibrillation #Hx of CAD with stents #Hx of CVA with residual deficit EKG 12/20 shows Afib without RVR Patient with history of chronic atrial fibrillation Patient apparently developed stroke after being taken off Eliquis for GI bleed Stopped diltiazem Plan: -Increased metoprolol 100mg BID -Continue home Atorvastatin PO 40mg qHS -Keep Mg >2 and K+ >4 #Hypernatremia, resolved Health Maintenance: Disposition: Telemetry Diet: Dysphagia 1 diet DVT ppx: Eliquis 5 mg twice daily GI ppx: Pantoprazole IV 40mg twice daily Code Status: FULL Case discussed with my attending Dr. Bellamy, and senior resident, Dr. Celi Huff MD PGY-1 Attending Provider Attestation/Addendum Suzanna Kang, DO, attest that I was physically present for the umanzor portions of the service and evaluated the patient with the resident and I reviewed and discussed the case with the resident and agree with the resident's findings and plans of care as documented above # Acute metabolic encephalopathy # Acute urinary retention # Osteomyelitis #Normocytic Anemia #Esophageal ulcers #Gastritis #Castorena?s esophagus #CKD stage IIIb #Afib #CAD s/p PCI and stent #CVA #Hypernatremia, resolved #Deconditioning Patient is a 64-year-old bedbound male with past medical history of A-fib on chronic anticoagulation, CAD status post stent, CVA, CKD stage IIIb, Castorena's esophagus, esophageal ulcers, osteomyelitis of the spine, 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 Patient had recently been admitted for osteomyelitis of his lumbar spine that appeared to have worsened since June. Patient is currently on Rocephin 2 g IV and doxycycline 100 mg p.o. twice daily until 02/12/2025. He was treated for a UTI. However, patient was brought back today to the hospital due to worsening confusion. Patient currently is ANO x 2. He is interactive and verbal. No slurring of speech. Patient complains that his abdomen hurts. On palpation, he is tender to light palpation. Patient states that he needs to use the bathroom, but is unable to void. Tenorio catheter was subsequently placed as bladder scan showed 871 cc of urine retained. Suspect that acute urinary retention may also be contributing to patient's confusion/acute metabolic encephalopathy. Patient was unable to tolerate MRI. CT head was repeated and shows no acute intracranial findings. EEG was done also and was abnormal showing diffuse encephalopathy of metabolic, degenerative or vascular origin. Will continue with current management and anticipate discharge within the next 24 hours if patient condition remains stable/improved.
[2024-12-24] MEDS: POLYETHYLENE GLYCOL 17 GM PACKET PO ×2 (13:48→17:46)
[2024-12-24 14:53] LABS: Basophils # (Auto) 0.0 Thou/mm3 (0.0-0.2); Basophils % (Auto) 0 % (0-2.5); Eosinophils # (Auto) 0.5 Thou/mm3 (0.0-0.5); Eosinophils % (Auto) 7 % (0-10); Hematocrit 26.9 % (41.0-53.0); Immature Granulocytes Auto 0.25 Thou/mm3 (0.00-0.00); Lymphocytes # (Auto) 0.7 Thou/mm3 (1.0-4.8); Lymphocytes % (Auto) 9 % (10-50); Mean Corpuscular HGB Conc 31.6 g/dl (31.0-37.0); Mean Corpuscular Hemoglobin 28.1 pg (25.0-35.0); Mean Corpuscular Volume 89 fL (80-100); Monocytes # (Auto) 0.5 Thou/mm3 (0.0-0.8); Monocytes % (Auto) 6 % (0-12); Neutrophils # (Auto) 5.6 Thou/mm3 (1.8-7.7); Neutrophils % (Auto) 75 % (37-80); Nucleated Red Blood Cell # 0.00 Thou/mm3 (0.00-0.00); Nucleated Red Blood Cell % 0 /100 WBC (0); Platelet Count 246 Thou/mm3 (140-440); RDW Standard Deviation 60.7 fL (35.1-43.9); Red Blood Count 3.02 Miln/mm3 (4.50-5.90); White Blood Count 7.6 Thou/mm3 (3.8-10.6)
[2024-12-24 15:01] LABS: Hemoglobin 8.5 g/dL (13.5-16.0)
[2024-12-24 15:10] LABS: Alanine Aminotransferase 35 U/L (10-49); Albumin, Serum 2.7 gm/dL (3.4-4.8); Albumin/Globulin Ratio 1.0 (1.2-2.2); Alkaline Phosphatase 100 U/L (46-116); Anion Gap 9 (7-16); Aspartate Amino Transferase 37 U/L (0-34); BUN/Creatinine Ratio 21 Ratio (12-20); Bilirubin,Total 0.4 mg/dL (0.3-1.2); Blood Urea Nitrogen 30 mg/dL (9-23); Calcium 8.6 mg/dL (8.3-10.6); Calcium (Corrected) 9.6 mg/dL (8.5-10.1); Carbon Dioxide 21.0 mMol/L (20.0-31.0); Chloride 110 mMol/L (98-107); Creatinine (Component) 1.4 mg/dL (0.6-1.3); Estimated Creatinine Clearance 55.0 mL/min (>60); Globulin 2.8 gm/dL (2.3-3.5); Glucose 91 mg/dL (74-106); Osmolality,Calculated 285 (275-295); Potassium 4.6 mMol/L (3.4-5.1); Sodium 140 mMol/L (136-145); Total Protein 5.5 gm/dL (5.7-8.2); eGFR 57 See Note
[2024-12-24] MEDS: Magnesium Sulfate 4 GM Ivpb 4 GM/50 ML BAG IV (17:46)
--- NOTE | 2024-12-24 22:49 | PD.VPROG1 ---
Telemedicine visit statement This visit was conducted with the use of interactive audio and video telecommunications system that permits real time communication between the patient and the provider. Patient's verbal consent for virtual visit was obtained on 12/24/24 at 2249. Documentation for date of: 12/24/24 Subjective Subjective Interval history: Patient is in telemetry. His mental status has improved and he is able to communicate better. He is trying to move his both upper and lower extremities but still weak Virtual exam Vital Signs Temp Pulse Resp BP Pulse Ox O2 Del Method 97.2 F 103 H 16 125/98 H 97 Room Air 12/24/24 19:46 12/24/24 21:17 12/24/24 19:46 12/24/24 21:17 12/24/24 19:46 12/24/24 19:46 Objective Labs 12/24/24 14:40 12/24/24 14:40 Labs: Laboratory Results - last 24 hr 12/24/24 14:40 WBC 7.6 RBC 3.02 L Hgb 8.5 L Hct 26.9 L MCV 89 MCH 28.1 MCHC 31.6 RDW Std Deviation 60.7 H Plt Count 246 Neut % (Auto) 75 Lymph % (Auto) 9 L [place] % (Auto) 6 Eos % (Auto) 7 Baso % (Auto) 0 Neut # (Auto) 5.6 Lymph # (Auto) 0.7 L [place] # (Auto) 0.5 Eos # (Auto) 0.5 Baso # (Auto) 0.0 Immature Gran # (Auto) 0.25 H Absolute Nucleated RBC 0.00 Immature Gran % 3 H Nucleated RBC % 0 Sodium 140 Potassium 4.6 D Chloride 110 H Carbon Dioxide 21.0 Anion Gap 9 BUN 30 H Creatinine 1.4 H Estim Creat Clear Calc 55.0 L eGFR 57 L BUN/Creatinine Ratio 21 H Glucose 91 Calculated Osmolality 285 Calcium 8.6 Corrected Calcium 9.6 Total Bilirubin 0.4 AST 37 H ALT 35 Alkaline Phosphatase 100 Total Protein 5.5 L Albumin 2.7 L Globulin 2.8 Albumin/Globulin Ratio 1.0 L Assessment & Plan Assessment Mr. Schrader is 64 yr male with PMH of A-fib on Eliquis, CAD s/p stent on plavix, stroke in May 2023, and CKD stage IIIb, esophageal ulcers presented to the hospital due to worsening confusion. #Acute encephalopathy #Previous stroke Ddx: anemia with GI bleeds, osteomyelitits infection, stroke, seizure. Was recently discharged on 12/19 after diagnosis of osteomyelitis of vertebra. Patient was started on 8-week course of IV antibiotics. and HH nurse noticed mentaton worsend. Currently on Plavix and eliquis. They were held in May and October 2024 for GI bleed. Hemoglobin downtrending to 8.5, hematocrit 27, MCV 89. CT head was negative for acute bleed. MR brain unsuccessful. -Repeat CT head: Negative for intracranial abnormalities -Continue Eliquis and Plavix - EEG showed diffuse slowing but no epileptiform discharges: Patient most likely is developing vascular dementia. -workup for peripheral neuropathy outpatient -neuro checks q4hr -seizure precautions - Encouraged him to participate with physical therapy to help with strengthening his lower extremities #Osteomyelitis Ceftriaxone 2 g daily and doxycycline 100 mg twice daily for 8 weeks. #Anemia, normocytic 2/2 #Esophageal ulcers #Gastritis #Castorena's esophagus #CKD stage IIIb #Hx of Atrial fibrillation #Hx of CAD with stents #Hx of CVA with residual deficit Primary care team to manage above conditions and ongoing care needs.
[2024-12-25] VITALS (10 sets, daily range): BP systolic 143–164; BP diastolic 79–95; PULSE 72–106; RESP 16–19; TEMP 35.9–36.3; O2SAT 97–100; BMI 33.5; BMI 12.0
[2024-12-25 06:52] LABS: Basophils # (Auto) 0.0 Thou/mm3 (0.0-0.2); Basophils % (Auto) 0 % (0-2.5); Eosinophils # (Auto) 0.5 Thou/mm3 (0.0-0.5); Eosinophils % (Auto) 7 % (0-10); Hematocrit 26.8 % (41.0-53.0); Immature Granulocytes Auto 0.16 Thou/mm3 (0.00-0.00); Lymphocytes # (Auto) 0.6 Thou/mm3 (1.0-4.8); Lymphocytes % (Auto) 9 % (10-50); Mean Corpuscular HGB Conc 31.3 g/dl (31.0-37.0); Mean Corpuscular Hemoglobin 28.2 pg (25.0-35.0); Mean Corpuscular Volume 90 fL (80-100); Monocytes # (Auto) 0.4 Thou/mm3 (0.0-0.8); Monocytes % (Auto) 6 % (0-12); Neutrophils # (Auto) 5.3 Thou/mm3 (1.8-7.7); Neutrophils % (Auto) 76 % (37-80); Nucleated Red Blood Cell # 0.00 Thou/mm3 (0.00-0.00); Nucleated Red Blood Cell % 0 /100 WBC (0); Platelet Count 243 Thou/mm3 (140-440); RDW Standard Deviation 62.4 fL (35.1-43.9); Red Blood Count 2.98 Miln/mm3 (4.50-5.90); White Blood Count 6.9 Thou/mm3 (3.8-10.6)
[2024-12-25 06:59] LABS: Hemoglobin 8.4 g/dL (13.5-16.0)
[2024-12-25 07:03] LABS: Alanine Aminotransferase < 7 U/L (10-49); Albumin, Serum 2.9 gm/dL (3.4-4.8); Albumin/Globulin Ratio 1.0 (1.2-2.2); Alkaline Phosphatase 107 U/L (46-116); Anion Gap 11 (7-16); Aspartate Amino Transferase 37 U/L (0-34); BUN/Creatinine Ratio 15 Ratio (12-20); Bilirubin,Total 0.5 mg/dL (0.3-1.2); Blood Urea Nitrogen 23 mg/dL (9-23); Calcium 8.9 mg/dL (8.3-10.6); Calcium (Corrected) 9.8 mg/dL (8.5-10.1); Carbon Dioxide 20.5 mMol/L (20.0-31.0); Chloride 109 mMol/L (98-107); Creatinine (Component) 1.5 mg/dL (0.6-1.3); Estimated Creatinine Clearance 51.3 mL/min (>60); Globulin 2.9 gm/dL (2.3-3.5); Glucose 82 mg/dL (74-106); Magnesium 2.2 mg/dL (1.6-2.6); Osmolality,Calculated 282 (275-295); Phosphorous 3.6 mg/dL (2.4-5.1); Potassium 4.4 mMol/L (3.4-5.1); Sodium 140 mMol/L (136-145); Total Protein 5.8 gm/dL (5.7-8.2); eGFR 52 See Note
[2024-12-25] MEDS: METOPROLOL TARTRATE 25 MG TABLET 100 MG PO ×2 (09:24→22:42)
[2024-12-25] MEDS: ASCORBIC ACID 250 MG TABLET 500 MG PO ×2 (09:25→22:43)
[2024-12-25] MEDS: CLOPIDOGREL BISULFATE 75 MG TABLET PO (09:25)
[2024-12-25] MEDS: LOSARTAN POTASSIUM 25 MG TABLET PO (09:26)
[2024-12-25] MEDS: APIXABAN 2.5 MG TABLET 5 MG PO ×2 (09:26→22:42)
[2024-12-25] MEDS: MULTIVITAMINS TABLET 1 TAB PO (09:26)
[2024-12-25] MEDS: DOXYCYCLINE 100 MG TABLET PO ×2 (09:26→22:42)
[2024-12-25] MEDS: ISOSORBIDE ER MONONITRATE 30 MG TABCR 60 MG PO (09:27)
[2024-12-25] MEDS: ZINC SULFATE 220 MG CAPSULE PO (09:27)
[2024-12-25] MEDS: ATORVASTATIN CALCIUM 10 MG TABLET 40 MG PO (09:27)
[2024-12-25] MEDS: POLYETHYLENE GLYCOL 17 GM PACKET PO (09:27)
[2024-12-25] MEDS: PANTOPRAZOLE 40 MG TABLET PO ×2 (09:27→22:43)
[2024-12-25] MEDS: cefTRIAXone/D5w 2gm 2 GM/50 ML BAG IV (09:28)
[2024-12-25] MEDS: SOD HYPOCHLORITE 1/4 STR 473 ML BTL TOP ×2 (09:28→22:43)
--- NOTE | 2024-12-25 09:30 | PC.SS ---
Follow up note: SS spoke to Carmela from [email or web address] who states they will accept pt under his secondary health insurance and will submit for insurance authorization. Pt will require IV antibiotic, Rocephin 2rm 1X day until February 12, 2025 and Carmela from [email or web address] is aware.
--- NOTE | 2024-12-25 11:02 | PD.RESPRO ---
Documentation for date of: 12/25/24 Exam Vital Signs Temp Pulse Resp BP Pulse Ox O2 Del Method 97.0 F 106 H 16 160/95 H 100 Room Air 12/25/24 08:00 12/25/24 09:27 12/25/24 08:00 12/25/24 09:27 12/25/24 08:00 12/25/24 08:00 Objective Labs 12/25/24 06:19 12/25/24 06:19 Labs: Laboratory Results - last 24 hr 12/24/24 12/25/24 14:40 06:19 WBC 7.6 6.9 RBC 3.02 L 2.98 L Hgb 8.5 L 8.4 L Hct 26.9 L 26.8 L MCV 89 90 MCH 28.1 28.2 MCHC 31.6 31.3 RDW Std Deviation 60.7 H 62.4 H Plt Count 246 243 Neut % (Auto) 75 76 Lymph % (Auto) 9 L 9 L [place] % (Auto) 6 6 Eos % (Auto) 7 7 Baso % (Auto) 0 0 Neut # (Auto) 5.6 5.3 Lymph # (Auto) 0.7 L 0.6 L [place] # (Auto) 0.5 0.4 Eos # (Auto) 0.5 0.5 Baso # (Auto) 0.0 0.0 Immature Gran # (Auto) 0.25 H 0.16 H Absolute Nucleated RBC 0.00 0.00 Immature Gran % 3 H 2 H Nucleated RBC % 0 0 Sodium 140 140 Potassium 4.6 D 4.4 Chloride 110 H 109 H Carbon Dioxide 21.0 20.5 Anion Gap 9 11 BUN 30 H 23 Creatinine 1.4 H 1.5 H Estim Creat Clear Calc 55.0 L 51.3 L eGFR 57 L 52 L BUN/Creatinine Ratio 21 H 15 Glucose 91 82 Calculated Osmolality 285 282 Calcium 8.6 8.9 Corrected Calcium 9.6 9.8 Phosphorus 3.6 Magnesium 2.2 Total Bilirubin 0.4 0.5 AST 37 H 37 H ALT 35 < 7 L Alkaline Phosphatase 100 107 Total Protein 5.5 L 5.8 Albumin 2.7 L 2.9 L Globulin 2.8 2.9 Albumin/Globulin Ratio 1.0 L 1.0 L Quality Measures Quality Measures none Assessment & Plan Assessment Current Active Medications: Generic Name Dose Route Start Last Admin Trade Name Freq PRN Reason Stop Dose Admin Acetaminophen 650 mg 12/20/24 16:53 Acetaminophen 325 Mg Tablet PO 01/19/25 16:52 Q6H PRN PAIN OR FEVER > 101 Protocol Apixaban 5 mg 12/20/24 21:00 12/25/24 09:26 Apixaban 2.5 Mg Tablet PO 01/19/25 20:59 5 mg BID HANNAH Administration Ascorbic Acid 500 mg 12/20/24 21:00 12/25/24 09:25 Ascorbic Acid 250 Mg Tablet PO 01/19/25 20:59 500 mg BID HANNAH Administration Atorvastatin Calcium 40 mg 12/20/24 17:30 12/25/24 09:27 Atorvastatin Calcium 10 Mg Tablet PO 01/19/25 17:29 40 mg QDAY HANNAH Administration Bisacodyl 5 mg 12/24/24 16:15 12/25/24 09:26 Bisacodyl 5 Mg Tabec PO 01/23/25 16:14 5 mg QDAY HANNAH Administration Protocol Clopidogrel Bisulfate 75 mg 12/21/24 09:00 12/25/24 09:25 Clopidogrel Bisulfate 75 Mg Tablet PO 01/20/25 08:59 75 mg QDAY HANNAH Administration Doxycycline Hyclate 100 mg 12/20/24 21:00 12/25/24 09:26 Doxycycline 100 Mg Tablet PO 12/27/24 20:59 100 mg BID HANNAH Administration Hydrocortisone 0 gm 12/24/24 17:05 Hydrocortisone Cr 1% 30 Gm Tube TOP 01/23/25 21:59 TID PRN itch Ceftriaxone Sodium/Dextrose 2 gm in 50 mls @ 100 mls/hr 12/20/24 17:15 12/25/24 09:28 Rocephin/D5w 2gm IV 12/27/24 17:14 100 mls/hr QDAY HANNAH Administration Isosorbide Mononitrate 60 mg 12/21/24 09:00 12/25/24 09:27 Isosorbide Er Mononitrate 30 Mg Tabcr PO 01/20/25 08:59 60 mg QDAY HANNAH Administration Losartan Potassium 25 mg 12/23/24 10:00 12/25/24 09:26 Losartan Potassium 25 Mg Tablet PO 01/22/25 09:59 25 mg QDAY HANNAH Administration Metoprolol Tartrate 100 mg 12/22/24 21:00 12/25/24 09:24 Metoprolol Tartrate 25 Mg Tablet PO 01/21/25 20:59 100 mg BID HANNAH Administration Multivitamins 1 tab 12/20/24 17:30 12/25/24 09:26 Multivitamins Tablet PO 01/19/25 17:29 1 tab QDAY HANNAH Administration Pantoprazole Sodium 40 mg 12/20/24 21:00 12/25/24 09:27 Pantoprazole 40 Mg Tablet PO 01/19/25 20:59 40 mg BID HANNAH Administration Polyethylene Glycol 17 gm 12/24/24 16:15 12/25/24 09:27 Polyethylene Glycol 17 Gm Packet PO 01/23/25 16:14 17 gm QDAY HANNAH Administration Sennosides 1 tab 12/25/24 09:00 12/25/24 09:26 Senna Tablet PO 01/24/25 08:59 1 tab QDAY HANNAH Administration Protocol Sodium Hypochlorite 473 ml 12/21/24 21:00 12/25/24 09:28 Sod Hypochlorite 1/4 Str 473 Ml Btl TOP 01/20/25 20:59 1 appln BID HANNAH Administration Zinc Sulfate 220 mg 12/21/24 09:00 12/25/24 09:27 Zinc Sulfate 220 Mg Capsule PO 01/04/25 08:59 220 mg QDAY HANNAH Administration
--- NOTE | 2024-12-25 12:49 | PC.SS ---
SS spoke to Carmela from [facility] and they have declined. SS spoke to Cheryl from [facility] [place] and they have declined. SS spoke to Shanna from [facility] and informed her pt will require IV antibiotic, Rocephin 2grm 1X day until 02-12-25. Shanna states she will inform her D.O.N. SS has spoken to Samanta from [facility] who explained she will check if patient's Medical covers the IV antibiotic and there is no share of cost. SS spoke to Odette from [facility] and they declined. SS spoke to patient's and she is agreeable to [facility] or [facility].
--- NOTE | 2024-12-25 14:47 | PC.SS ---
SS has received call from [place] at [facility] who states they will accept pt. SS attempted to contact patient's numerous times to inform her but did not answer (SS left voicemail). SS has sent updated inquiry to [facility] using [facility] [place].
--- NOTE | 2024-12-25 15:48 | PD.RESDS ---
Planned Discharge Date 12/25/24 DS: Providers Provider Date of admission: 12/20/24 16:54 Primary care physician: Wilfredo Navarro MD Admitting Provider: Ahsan Owen MD Attending Provider on Admission: Suzanna Bellamy DO Consults: 12/20/24 16:56 Consult to Neurology / Tele-Neurology Stat Comment: Consulting Provider: Jon Fallon 12/20/24 17:13 Referral Wound Care Stat Comment: 12/20/24 23:49 Referral Infection Control Routine Comment: Reason for Infection Control Referral: Readmitted within 30 days Referral Registered Dietitian Routine Comment: Referral Wound Care Routine Comment: 12/21/24 14:59 Referral OP Wound Healing Dept Routine Comment: Mid upper back pressure injury 12/24/24 12:58 Referral Physical Therapy Routine Comment: Physician Instructions: Attending Provider on DC: Giuliano Huff MD Discharging Provider: Giuliano Huff MD Hospital Course Hospital Course Hospital course: Patient seen at bedside. No acute overnight events. The patient is very talkative today. Alert and oriented x 1. Patient had suprapubic abdominal pain for which bladder scan was done and that showed urinary retention with approximately 800 cc. Tinoco catheter was inserted and emptied 2L. The patient is continuing the ID-recommended 8-week course of antibiotics for vertebral osteomyelitis, receiving both IV Ceftriaxone and P.O. Doxycycline, with the total course scheduled to conclude on February 12, 2025. Time Spent with Patient Time attestation: Total time spent providing and/or coordinating discharge services: Exam Vital Signs Temp Pulse Resp BP Pulse Ox O2 Del Method 96.6 F L 86 16 164/82 H 99 Room Air 12/25/24 12:00 12/25/24 12:00 12/25/24 12:00 12/25/24 12:00 12/25/24 12:00 12/25/24 12:00 Discharge Plan Plan Patient Disposition: Xfer Skilled Nsg Fac (SNF) Patient condition on transfer: Stable Care Plan Goals: Please continue IV ceftriaxone 2 g every day along with doxycycline 100 mg tablet by mouth twice a day for total of 8 weeks for chronic osteomyelitis: End date of 02/12/2025 Please take vitamin C, multivitamin and zinc for proper wound care and nutritional support Continue all other home medications as prescribed Please follow-up with neurologist, Dr Fallon, for vascular dementia Please follow-up with your bundle wrapper within 1 to 2 weeks of discharge Please follow-up with your PCP within 1 week of discharge or follow-up at the - [facility] [address] [place] [address] Ask your PCP to refer you to a urologist for urinary retention requiring Tinoco catheter If your symptoms worsen or if you start to develop new fever, chest pain, shortness of breath or severe back pain - please come back to the ED immediately. 1) Follow up with [facility], [address] [place] [address]. Call [phone] for appointment. 2) Wound care: Wash hands with soap and water than remove old dressing and irrigate well. Wash hands again than apply dressing. - Stage 4 to mid upper back: irrigate well with 1/4 st dakins solution, pat dry. Fill wound bed including undermining with calcium alginate. Skin prep to wound edges and secure with allyven dressing twice a day and as needed for falling off or soiling. Side to side repositioning. No pressure over wound site during repositioning with wedges or pillows please. - Stage 2 over coccyx. Stage 3 over left flank/back: cleanse with wound cleanser, pat dry. apply skin prep and cover with allyven dressing daily. If active bleeding occurs, apply tight dressing and return to MD or ER. ? Notify primary doctor or return to Emergency Room if any of the following: ? Fever above 100.6? F. ? Increased pain ? Increase swelling ? Red streaks around your wound ? Drainage becomes foul smelling or changes color ? The wound is larger or deeper ? The wound looks dried out or dark ? Bleeding that does not stop with holding pressure Prescriptions/Referrals Prescriptions/Med Rec: New losartan 25 mg Tablet 25 mg PO QDAY 30 Days Qty: 30 0RF sennosides [Senna Lax] 8.6 mg Tablet 8.6 mg PO QDAY PRN (Reason: constipation) 30 Days Qty: 30 0RF Continued atorvastatin 40 mg tablet 40 mg PO QDAY Qty: 30 0RF Eliquis 5 mg tablet 5 mg PO BID Qty: 30 0RF isosorbide mononitrate 30 mg Tablet Extended Release 24 Hr 60 mg PO QDAY clopidogrel 75 mg Tablet 75 mg PO QDAY metoprolol tartrate 25 mg Tablet 50 mg PO BID diltiazem HCl 60 mg capsule,extended release 12 hr 60 mg PO QDAY ceftriaxone in dextrose,iso-os 2 gram/50 mL Piggyback 2 g IV QDAY 56 Days Qty: 24 2RF Rx Instructions: To complete regimen on 02/12/2025 - eight week course doxycycline hyclate 100 mg Tablet 100 mg PO BID 56 Days Qty: 112 0RF Rx Instructions: To complete regimen on 02/12/2025 - eight week course ascorbic acid (vitamin C) [Vitamin C] 250 mg Tablet 500 mg PO BID 30 Days Qty: 120 0RF multivitamin with folic acid [Tab-A-Lissette] 400 mcg Tablet 1 tab PO QDAY 30 Days Qty: 30 0RF zinc sulfate 50 mg zinc (220 mg) Capsule 220 mg PO QDAY 20 Days Qty: 88 0RF pantoprazole 40 mg Tablet,Delayed Release (Dr/Ec) 40 mg PO BID Qty: 30 0RF Referrals: Jon Fallon MD [Physician, Neurology] Wilfredo Navarro MD [Primary Care Provider, Family Practice] Patient/Caregiver Discharge Instructions Education Materials: Nutrition for Wound Healing, Pressure Injury Dc, Changing Dressing Dc Print Language: Danish Stand Alone Forms: Caterina Award Info., Patient Portal Info Letter Discharge Order Discharge Orders: Discharge (Routine); Ordered 12/25/24 Ordered By: Brandon Kat
--- NOTE | 2024-12-25 16:32 | PC.SS ---
Pt is still on mitten restraints. SS called Samanta from [facility] who explained pt has to be off restraints for 24 hours. SS has cancelled transportation with [facility] today. SS has set transportation for tomorrow 12-26-24 for [place] with Olu from [facility]. SS spoke to Samuel from [facility] who states they are unable to find pt in their system. is aware pt must be off restraints for 24 hours before [facility] will accept.
--- NOTE | 2024-12-25 16:57 | PD.RESPRO ---
Documentation for date of: 12/25/24 Subjective Subjective Interval history: Patient seen at bedside. No acute overnight events. Alert and oriented x 1. Tenorio catheter emptied 2.2L in past 24hrs. The patient is continuing the ID-recommended 8-week course of antibiotics for vertebral osteomyelitis, receiving both IV Ceftriaxone and P.O. Doxycycline, with the total course scheduled to conclude on February 12, 2025. SNF placement confirmed to tomorrow. Exam Vital Signs Temp Pulse Resp BP Pulse Ox O2 Del Method 96.6 F L 86 16 164/82 H 99 Room Air 12/25/24 12:00 12/25/24 12:00 12/25/24 12:00 12/25/24 12:00 12/25/24 12:00 12/25/24 12:00 Narrative Exam General: Alert and oriented x1, No apparent distress. Skin: Intact, Warm, no rashes. 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 HEENT: Normocephalic, Atraumatic. Normal neck range of motion, Supple. Trachea midline. Severe Hearing loss b/l. Respiratory: Lungs are clear to auscultation, Breath sounds are equal bilaterally with equal chest expansion. Cardiovascular: irregular rhythm, normal S1, S2, No murmurs. Distal pulses 2+. Abdomen: nondistended, non-tender. Normotensive bowel sounds x4. Percussion tympanic. No organomagely. Musculoskeletal: No erythema, swelling, tenderness of any joints. No edema of BLE. DP pulses +2/3 b/l. Patient cannot move his b/l extremities but can sense gross touch L3-S1 dermatomes b/l. Neurologic: CN II-XII grossly intact, no focal deficits, alert, following limited commands Objective Labs 12/26/24 05:16 12/26/24 05:16 Labs: Laboratory Results - last 24 hr 12/25/24 06:19 WBC 6.9 RBC 2.98 L Hgb 8.4 L Hct 26.8 L MCV 90 MCH 28.2 MCHC 31.3 RDW Std Deviation 62.4 H Plt Count 243 Neut % (Auto) 76 Lymph % (Auto) 9 L [place] % (Auto) 6 Eos % (Auto) 7 Baso % (Auto) 0 Neut # (Auto) 5.3 Lymph # (Auto) 0.6 L [place] # (Auto) 0.4 Eos # (Auto) 0.5 Baso # (Auto) 0.0 Immature Gran # (Auto) 0.16 H Absolute Nucleated RBC 0.00 Immature Gran % 2 H Nucleated RBC % 0 Sodium 140 Potassium 4.4 Chloride 109 H Carbon Dioxide 20.5 Anion Gap 11 BUN 23 Creatinine 1.5 H Estim Creat Clear Calc 51.3 L eGFR 52 L BUN/Creatinine Ratio 15 Glucose 82 Calculated Osmolality 282 Calcium 8.9 Corrected Calcium 9.8 Phosphorus 3.6 Magnesium 2.2 Total Bilirubin 0.5 AST 37 H ALT < 7 L Alkaline Phosphatase 107 Total Protein 5.8 Albumin 2.9 L Globulin 2.9 Albumin/Globulin Ratio 1.0 L Quality Measures Quality Measures none Assessment & Plan Assessment Current Active Medications: Generic Name Dose Route Start Last Admin Trade Name Freq PRN Reason Stop Dose Admin Acetaminophen 650 mg 12/20/24 16:53 Acetaminophen 325 Mg Tablet PO 01/19/25 16:52 Q6H PRN PAIN OR FEVER > 101 Protocol Apixaban 5 mg 12/20/24 21:00 12/25/24 09:26 Apixaban 2.5 Mg Tablet PO 01/19/25 20:59 5 mg BID HANNAH Administration Ascorbic Acid 500 mg 12/20/24 21:00 12/25/24 09:25 Ascorbic Acid 250 Mg Tablet PO 01/19/25 20:59 500 mg BID HANNAH Administration Atorvastatin Calcium 40 mg 12/20/24 17:30 12/25/24 09:27 Atorvastatin Calcium 10 Mg Tablet PO 01/19/25 17:29 40 mg QDAY HANNAH Administration Bisacodyl 5 mg 12/24/24 16:15 12/25/24 09:26 Bisacodyl 5 Mg Tabec PO 01/23/25 16:14 5 mg QDAY HANNAH Administration Protocol Clopidogrel Bisulfate 75 mg 12/21/24 09:00 12/25/24 09:25 Clopidogrel Bisulfate 75 Mg Tablet PO 01/20/25 08:59 75 mg QDAY HANNAH Administration Doxycycline Hyclate 100 mg 12/20/24 21:00 12/25/24 09:26 Doxycycline 100 Mg Tablet PO 12/27/24 20:59 100 mg BID HANNAH Administration Dronabinol 2.5 mg 12/25/24 13:20 Dronabinol 2.5 Mg Capsule PO 01/24/25 13:19 BIDAC HANNAH Hydrocortisone 0 gm 12/24/24 17:05 Hydrocortisone Cr 1% 30 Gm Tube TOP 01/23/25 21:59 TID PRN itch Ceftriaxone Sodium/Dextrose 2 gm in 50 mls @ 100 mls/hr 12/20/24 17:15 12/25/24 09:28 Rocephin/D5w 2gm IV 12/27/24 17:14 100 mls/hr QDAY HANNAH Administration Isosorbide Mononitrate 60 mg 12/21/24 09:00 12/25/24 09:27 Isosorbide Er Mononitrate 30 Mg Tabcr PO 01/20/25 08:59 60 mg QDAY HANNAH Administration Losartan Potassium 25 mg 12/23/24 10:00 12/25/24 09:26 Losartan Potassium 25 Mg Tablet PO 01/22/25 09:59 25 mg QDAY HANNAH Administration Metoprolol Tartrate 100 mg 12/22/24 21:00 12/25/24 09:24 Metoprolol Tartrate 25 Mg Tablet PO 01/21/25 20:59 100 mg BID HANNAH Administration Multivitamins 1 tab 12/20/24 17:30 12/25/24 09:26 Multivitamins Tablet PO 01/19/25 17:29 1 tab QDAY HANNAH Administration Pantoprazole Sodium 40 mg 12/20/24 21:00 12/25/24 09:27 Pantoprazole 40 Mg Tablet PO 01/19/25 20:59 40 mg BID HANNAH Administration Polyethylene Glycol 17 gm 12/24/24 16:15 12/25/24 09:27 Polyethylene Glycol 17 Gm Packet PO 01/23/25 16:14 17 gm QDAY HANNAH Administration Sennosides 1 tab 12/25/24 09:00 12/25/24 09:26 Senna Tablet PO 01/24/25 08:59 1 tab QDAY HANNAH Administration Protocol Sodium Hypochlorite 473 ml 12/21/24 21:00 12/25/24 09:28 Sod Hypochlorite 1/4 Str 473 Ml Btl TOP 01/20/25 20:59 1 appln BID HANNAH Administration Zinc Sulfate 220 mg 12/21/24 09:00 12/25/24 09:27 Zinc Sulfate 220 Mg Capsule PO 01/04/25 08:59 220 mg QDAY HANNAH Administration Plan 64-year-old past medical history of hypertension, atrial fibrillation on Eliquis, coronary artery disease with stent placement, and a stroke in May 2023. Patient admitted for acute encepahlophaty. Patient had a recent hospital admission from 12/15 to 12/19. #Acute encephalopathy #Chronic osteomyelitis #?Dementia DDx: Infectious etiology from osteomyelitis vs urinary retention vs constipation vs primary [employer] lesions, unlikely metabolic ID from last admission recommended 8 weeks of antibiotics with ceftriaxone 2 g daily and doxycycline 100 mg twice daily for chronic osteomyelitis. Last day of abx is Feb 12, 2025. Patient has a tunneled right IJ central venous catheter in place MRI brain unsuccessful. Repeat CT head 12/22 showed no bleed EEG done 12/24 and shows diffuse slowing suggestive of metabolic, degenerative, or vascular origin KUB 12/24 showed moderate stool burden Bladder scan 12/24 showed urinary retention, tenorio inserted and emptied 2L Plan: ? Neurology consulted, Dr. Fallon, see recs ? Neuro checks Q4h ? Continue Rocephin 2 g daily and doxycycline 100 mg twice daily per ID recommendations, until Feb 12 2025 - Bowel regimen - Tenorio inserted, monitor output #Hx of Decubitus Ulcer According to last admission front end ui developer reported nonpurulent drainage from a midline lower thoracic decubitus ulcer, non erythematous Patient was hospitalized in [place] 06/2024 for I&D and restitch of an draining abscess that had developed in the same site, and spent 90 days in recovery with regular wound care follow up. -Wound care -Watch for signs of infection closely #Anemia, normocytic 2/2 #Esophageal ulcers #Gastritis #Castorena's esophagus Hgb on presentation 9.8 Iron 12/16 showed levels low, ferritin high EGD performed 12/17 showed esophageal ulcers, mucosal changes consistent with Castorena's esophagus, gastritis -Watch Hgb closely, transfuse if <7 -Protonix 40 mg IV every 12 hours #CKD stage IIIb Creatinine 1.9, which is around baseline of 1.8. Plan: ?Renally dose meds, avoid overdiuresis, or nephrotoxins #Hx of Atrial fibrillation #Hx of CAD with stents #Hx of CVA with residual deficit EKG 12/20 shows Afib without RVR Patient with history of chronic atrial fibrillation Patient apparently developed stroke after being taken off Eliquis for GI bleed Stopped diltiazem Plan: -Increased metoprolol 100mg BID -Continue home Atorvastatin PO 40mg qHS -Keep Mg >2 and K+ >4 #Hypernatremia, resolved Health Maintenance: Disposition: Telemetry Diet: Dysphagia 1 diet DVT ppx: Eliquis 5 mg twice daily GI ppx: Pantoprazole IV 40mg twice daily Code Status: FULL Case discussed with my attending Dr. Bellamy, and senior resident, Dr. Shey Huff MD PGY-1 Attending Provider Attestation/Addendum I, Suzanna Bellamy, DO, attest that I was physically present for the umanzor portions of the service and evaluated the patient with the resident and I reviewed and discussed the case with the resident and agree with the resident's findings and plans of care as documented above Patient seen and evaluated this AM. Mental status is improved. Mild tenderness to palpation in epigastric region. Abdomen is otherwise soft. Good urine output noted after tenorio was placed. Patient states he has no appetite. Patient may need help with feeds to encourage PO intake. Mental status is much improved today. Anticipate DC within next 24h to SNF once arranged.
[2024-12-25] MEDS: HALOPERIDOL LACT INJ 5 MG/ML VIAL 2 MG IM (21:41)
--- NOTE | 2024-12-25 23:00 | PC.NURSE ---
At 22:15, the telesitter notified the nurse that the patient had pulled their PICC line from the right chest. The patient had a history of impulsivity and exhibited pre-existing redness, hives, and abrasions from continuous scratching. Upon assessment, the nurse found that the PICC line had been completely removed and is intact. Pressure was applied to the site for five minutes, followed by the placement of an occlusive dressing. The patient did not report any new complaints. The MD was notified and verified the situation, ordering 2 mg of Haldol IM for agitation. The medication was administered without signs of lethargy, and the patient remained awake and alert after administration. Care continued.
[2024-12-26] VITALS (7 sets, daily range): BP systolic 128–154; BP diastolic 68–96; PULSE 73–96; RESP 15–22; TEMP 36.1–36.4; O2SAT 97–100; BMI 32.3
[2024-12-26 06:09] LABS: Basophils # (Auto) 0.0 Thou/mm3 (0.0-0.2); Basophils % (Auto) 0 % (0-2.5); Eosinophils # (Auto) 0.4 Thou/mm3 (0.0-0.5); Eosinophils % (Auto) 5 % (0-10); Hematocrit 25.8 % (41.0-53.0); Immature Granulocytes Auto 0.14 Thou/mm3 (0.00-0.00); Lymphocytes # (Auto) 0.7 Thou/mm3 (1.0-4.8); Lymphocytes % (Auto) 9 % (10-50); Mean Corpuscular HGB Conc 32.2 g/dl (31.0-37.0); Mean Corpuscular Hemoglobin 28.5 pg (25.0-35.0); Mean Corpuscular Volume 89 fL (80-100); Monocytes # (Auto) 0.5 Thou/mm3 (0.0-0.8); Monocytes % (Auto) 6 % (0-12); Neutrophils # (Auto) 6.3 Thou/mm3 (1.8-7.7); Neutrophils % (Auto) 78 % (37-80); Nucleated Red Blood Cell # 0.00 Thou/mm3 (0.00-0.00); Nucleated Red Blood Cell % 0 /100 WBC (0); Platelet Count 256 Thou/mm3 (140-440); RDW Standard Deviation 62.4 fL (35.1-43.9); Red Blood Count 2.91 Miln/mm3 (4.50-5.90); White Blood Count 8.1 Thou/mm3 (3.8-10.6)
[2024-12-26 06:15] LABS: Hemoglobin 8.3 g/dL (13.5-16.0)
[2024-12-26 06:27] LABS: Alanine Aminotransferase 36 U/L (10-49); Albumin, Serum 2.8 gm/dL (3.4-4.8); Albumin/Globulin Ratio 1.0 (1.2-2.2); Alkaline Phosphatase 105 U/L (46-116); Anion Gap 9 (7-16); Aspartate Amino Transferase 38 U/L (0-34); BUN/Creatinine Ratio 19 Ratio (12-20); Bilirubin,Total 0.3 mg/dL (0.3-1.2); Blood Urea Nitrogen 28 mg/dL (9-23); Calcium 8.8 mg/dL (8.3-10.6); Calcium (Corrected) 9.8 mg/dL (8.5-10.1); Carbon Dioxide 21.6 mMol/L (20.0-31.0); Chloride 108 mMol/L (98-107); Creatinine (Component) 1.5 mg/dL (0.6-1.3); Estimated Creatinine Clearance 50.4 mL/min (>60); Globulin 2.8 gm/dL (2.3-3.5); Glucose 97 mg/dL (74-106); Osmolality,Calculated 283 (275-295); Potassium 4.5 mMol/L (3.4-5.1); Sodium 139 mMol/L (136-145); Total Protein 5.6 gm/dL (5.7-8.2); eGFR 52 See Note
[2024-12-26] MEDS: cefTRIAXone/D5w 2gm 2 GM/50 ML BAG IV (09:13)
[2024-12-26] MEDS: POLYETHYLENE GLYCOL 17 GM PACKET PO (09:13)
[2024-12-26] MEDS: METOPROLOL TARTRATE 25 MG TABLET 100 MG PO (09:14)
[2024-12-26] MEDS: ZINC SULFATE 220 MG CAPSULE PO (09:14)
[2024-12-26] MEDS: CLOPIDOGREL BISULFATE 75 MG TABLET PO (09:14)
[2024-12-26] MEDS: LOSARTAN POTASSIUM 25 MG TABLET PO (09:14)
[2024-12-26] MEDS: ISOSORBIDE ER MONONITRATE 30 MG TABCR 60 MG PO (09:14)
[2024-12-26] MEDS: PANTOPRAZOLE 40 MG TABLET PO (09:14)
[2024-12-26] MEDS: DOXYCYCLINE 100 MG TABLET PO (09:14)
[2024-12-26] MEDS: MULTIVITAMINS TABLET 1 TAB PO (09:15)
[2024-12-26] MEDS: ASCORBIC ACID 250 MG TABLET 500 MG PO (09:15)
[2024-12-26] MEDS: ATORVASTATIN CALCIUM 10 MG TABLET 40 MG PO (09:15)
[2024-12-26] MEDS: APIXABAN 2.5 MG TABLET 5 MG PO (09:15)
[2024-12-26] MEDS: SOD HYPOCHLORITE 1/4 STR 473 ML BTL TOP (09:16)
--- NOTE | 2024-12-26 13:35 | ESDS_ITS ---
<Statement entered by Mandi Schumacher MD - 12/29/24 17:20> I reviewed above note and agree with findings and plans. I have also personally examined the patient with medicine team and went over assessment and plan with medical team including technology intern and resident physician. <Statement entered by Yadira Alatorre MD - 12/26/24 14:04> The patient has a history of hypertension, atrial fibrillation, coronary artery disease, and stroke. He was admitted for acute encephalopathy, likely related to chronic osteomyelitis and urinary retention. The patient also has a history of decubitus ulcer and anemia. * Neurological: EEG showed diffuse slowing. No brain bleed on CT. * Infectious Disease: ID recommended long-term antibiotics for chronic osteomyel itis. The family agreed to switch to oral antibiotics due to difficulty maintaining the line and patient's dementia.(patient pulled out the line) * Urinary: Tenorio catheter was inserted after finding significant urinary retention, patient will go to SNF and follow up with PCP and have tenorio exchange there * Wound Care: Regular follow-up for decubitus ulcer care. Plan: * Continue oral abx * Continue Protonix for gastritis and monitor Hgb. * Follow-up: Neurology, wound care, and ID. Family and Care Plan: The family has agreed to oral antibiotics as the patient is unable to keep the central line in place due to his dementia. I discussed with and supervised the technology intern physician who took care of this patient. I personally saw and examined the patient and discussed the assessment and plan with the entire medicine team, including my attending , I agree with the assessment and plan as documented below Yadira Alatorre M.D. PGY-3 Disclaimer: Despite multiple revisions, due to the dictation software being used, the document bellow may not be free of grammatical errors including phonetic/typographic errors. However, this does not deter from our commitment to providing health care in the patient's best interest in mind. Planned Discharge Date 12/26/24 DS: Providers Provider Date of admission: 12/20/24 16:54 Primary care physician: Wilfredo Navarro MD Admitting Provider: Ahsan Owen MD Attending Provider on Admission: Suzanna Bellamy DO Consults: 12/20/24 16:56 Consult to Neurology / Tele-Neurology Stat Comment: Consulting Provider: Jon Fallon 12/20/24 17:13 Referral Wound Care Stat Comment: 12/20/24 23:49 Referral Infection Control Routine Comment: Reason for Infection Control Referral: Readmitted within 30 days Referral Registered Dietitian Routine Comment: Referral Wound Care Routine Comment: 12/21/24 14:59 Referral OP Wound Healing Dept Routine Comment: Mid upper back pressure injury 12/24/24 12:58 Referral Physical Therapy Routine Comment: Physician Instructions: 12/26/24 09:48 Consult to Infectious Diseases Routine Comment: Consulting Provider: Charles Tapia Attending Provider on DC: Mandi Schumacher MD Discharging Provider: Mandi Schumacher MD DS: Diagnosis Problem List Completed Was Problem List Reviewed/Reconciled?: Yes Hospital Course Hospital Course Hospital course: 64-year-old bedbound male with a medical history of A-fib on chronic anticoagulation, CAD status post stent, CVA, CKD stage IIIb, Castorena's esophagus, esophageal ulcers, osteomyelitis of the spine, and 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 He had recently been hospitalized for worsening osteomyelitis of his lumbar spine, which has been ongoing since June 2024, and was on Rocephin 2 g IV and doxycycline 100 mg p.o. twice daily until 02/12/2025. Additionally, he was treated for a UTI, but his confusion has worsened, prompting his readmission. ED course: Initial ED vitals include temperature 97.9, BP 171/67, heart rate 86, 99% on room air. Notable labs include WBC 9.1, hemoglobin 9.8, sodium 149, potassium 4.9, creatinine 1.9, LFTs within normal range. Patient received 1 L of sodium chloride. Hospital course: The patient had good urine output since the placement of the Tenorio catheter, and his urinary retention, which had initially been suspected to be contributing to his confusion, appeared to be under control. His acute encephalopathy resolved, and his mental status significantly improved. The patient reported a lack of appetite and required assistance with feeding to encourage oral intake. Prior to transfer [facility] the [facility] the patient removed his IJ central venous line. Due to the risk of further similar episodes while in the SNF, the family was consulted and agreed to proceed with oral antibiotics, as the patient was unable to maintain the central line due to his dementia. Patient is to continue taking Levofloaxin 750mg once a day along with doxycycline 100 mg tablet by mouth twice a day for total of 8 weeks for chronic osteomyelitis: End date of 02/12/2025; repeat imaging of spine to reassess after 6 weeks. Discharge instructions: Please continue Levofloaxin 750mg once a day along with doxycycline 100 mg tablet by mouth twice a day for total of 8 weeks for chronic osteomyelitis: End date of 02/12/2025; repeat imaging of spine to reassess after 6 weeks. Please take Losartan 25mg by mouth once a day and Metoprolol tartrate 100 mg by mouth twice a day - stop taking diltiazem Please take vitamin C, multivitamin and zinc for proper wound care and nutritional support Continue all other home medications as prescribed Please follow-up with neurologist, Dr Fallon, for vascular dementia Please follow-up with your sales operations director within 1 to 2 weeks of discharge Please follow-up with your PCP within 1 week of discharge or follow-up at the - [facility] [facility] [address] [place] [address] Ask your PCP to refer you to a urologist for urinary retention requiring Tenorio catheter If your symptoms worsen or if you start to develop new fever, chest pain, shortness of breath or severe back pain - please come back to the ED immediately. 1) Follow up with [facility], [address] [place] [address]. Call [phone] for appointment. 2) Wound care: Wash hands with soap and water than remove old dressing and irrigate well. Wash hands again than apply dressing. - Stage 4 to mid upper back: irrigate well with 1/4 st dakins solution, pat dry. Fill wound bed including undermining with calcium alginate. Skin prep to wound edges and secure with allyven dressing twice a day and as needed for falling off or soiling. Side to side repositioning. No pressure over wound site during repositioning with wedges or pillows please. - Stage 2 over coccyx. Stage 3 over left flank/back: cleanse with wound cleanser, pat dry. apply skin prep and cover with allyven dressing daily. Admission diagnoses: #Acute encephalopathy #Chronic osteomyelitis #Vascular Dementia #Hx of Decubitus Ulcer #Anemia, normocytic 2/2 #Esophageal ulcers #Gastritis #Castorean's esophagus #CKD stage IIIb #Hx of Atrial fibrillation #Hx of CAD with stents #Hx of CVA with residual deficit #Hypernatremia, resolved Case discussed with my attending Dr. Schumacher, and senior resident, Dr. Celi Huff MD PGY-1 Status at Discharge Overall status at discharge: patient is progressing back to baseline Time Spent with Patient Time attestation: Total time spent providing and/or coordinating discharge services: Time spent: Greater than 30 minutes Exam Vital Signs Temp Pulse Resp BP Pulse Ox O2 Del Method 97.2 F 78 18 138/72 H 98 Room Air 12/26/24 12:00 12/26/24 12:00 12/26/24 12:00 12/26/24 12:00 12/26/24 12:00 12/26/24 12:00 Discharge Plan Plan Patient Disposition: Xfer Skilled Nsg Fac (SNF) Patient condition on transfer: Stable Care Plan Goals: Please continue Levofloaxin 750mg once a day along with doxycycline 100 mg tablet by mouth twice a day for total of 8 weeks for chronic osteomyelitis: End date of 02/12/2025; repeat imaging of spine to reassess after 6 weeks. Please take Losartan 25mg by mouth once a day and Metoprolol tartrate 100 mg by mouth twice a day - stop taking diltiazem Please take vitamin C, multivitamin and zinc for proper wound care and nutritional support Continue all other home medications as prescribed Please follow-up with neurologist, Dr Fallon, for vascular dementia Please follow-up with your sales operations director within 1 to 2 weeks of discharge Please follow-up with your PCP within 1 week of discharge or follow-up at the - [facility] [place] [address] Ask your PCP to refer you to a urologist for urinary retention requiring Tenorio catheter If your symptoms worsen or if you start to develop new fever, chest pain, shortness of breath or severe back pain - please come back to the ED immediately. 1) Follow up with [facility], [address] [place] [address]. Call [phone] for appointment. 2) Wound care: Wash hands with soap and water than remove old dressing and irrigate well. Wash hands again than apply dressing. - Stage 4 to mid upper back: irrigate well with 1/4 st dakins solution, pat dry. Fill wound bed including undermining with calcium alginate. Skin prep to wound edges and secure with allyven dressing twice a day and as needed for falling off or soiling. Side to side repositioning. No pressure over wound site during repositioning with wedges or pillows please. - Stage 2 over coccyx. Stage 3 over left flank/back: cleanse with wound cleanser, pat dry. apply skin prep and cover with allyven dressing daily. If active bleeding occurs, apply tight dressing and return to MD or ER. ? Notify primary doctor or return to Emergency Room if any of the following: ? Fever above 100.6? F. ? Increased pain ? Increase swelling ? Red streaks around your wound ? Drainage becomes foul smelling or changes color ? The wound is larger or deeper ? The wound looks dried out or dark ? Bleeding that does not stop with holding pressure Prescriptions/Referrals Prescriptions/Med Rec: New losartan 25 mg Tablet 25 mg PO QDAY 30 Days Qty: 30 0RF sennosides [Senna Lax] 8.6 mg Tablet 8.6 mg PO QDAY PRN (Reason: constipation) 30 Days Qty: 30 0RF metoprolol tartrate 100 mg tablet 100 mg PO BID 30 Days Qty: 60 0RF levofloxacin 750 mg tablet 750 mg PO QDAY 42 Days Qty: 42 0RF Continued atorvastatin 40 mg tablet 40 mg PO QDAY Qty: 30 0RF Eliquis 5 mg tablet 5 mg PO BID Qty: 30 0RF isosorbide mononitrate 30 mg Tablet Extended Release 24 Hr 60 mg PO QDAY clopidogrel 75 mg Tablet 75 mg PO QDAY doxycycline hyclate 100 mg Tablet 100 mg PO BID 56 Days Qty: 112 0RF Rx Instructions: To complete regimen on 02/12/2025 - eight week course ascorbic acid (vitamin C) [Vitamin C] 250 mg Tablet 500 mg PO BID 30 Days Qty: 120 0RF multivitamin with folic acid [Tab-A-Lissette] 400 mcg Tablet 1 tab PO QDAY 30 Days Qty: 30 0RF zinc sulfate 50 mg zinc (220 mg) Capsule 220 mg PO QDAY 20 Days Qty: 88 0RF pantoprazole 40 mg Tablet,Delayed Release (Dr/Ec) 40 mg PO BID Qty: 30 0RF Discontinued metoprolol tartrate 25 mg Tablet 50 mg PO BID diltiazem HCl 60 mg capsule,extended release 12 hr 60 mg PO QDAY ceftriaxone in dextrose,iso-os 2 gram/50 mL Piggyback 2 g IV QDAY 56 Days Qty: 24 2RF Rx Instructions: To complete regimen on 02/12/2025 - eight week course Referrals: Jon Fallon MD [Physician, Neurology] Wilfredo Navarro MD [Primary Care Provider, Family Practice] Patient/Caregiver Discharge Instructions Education Materials: Nutrition for Wound Healing, Pressure Injury Dc, Changing Dressing Dc Print Language: [place] Leonean Stand Alone Forms: Caterina Award Info., Patient Portal Info Letter Discharge Order Discharge Orders: Discharge (Routine); Ordered 12/26/24 Ordered By: Brandon Kat Quality Discharge Quality Measures VTE prophylaxis
--- NOTE | 2024-12-26 15:21 | PC.SS ---
SS has communicated this morning with bedside nurse, Radha who explained pt is off mitten restraints but has removed his PICC line last night. Transportation has been set for 7:30pm to [facility].
--- NOTE | 2024-12-26 15:22 | PC.SS ---
has called Jamie from [facility] phone# [phone] and confirmed transport to [facility] is now for 7:45pm. has provided Jamie with the phone number to the nurses' station. is aware. Ember from [facility] is aware. Bedside nurse, Radha is aware. Bela MUNOZ is aware.
--- NOTE | 2024-12-26 19:00 | PC.NURSE ---
@1835- Called [facility] for report and provide verbal discharge instructions. Spoke to Paula from facility regarding discharge packet. Paula acknowledges understanding and is made aware discharge papers will be in route with the transport team. Instructions printed with Rx, monographs, and education info regarding wound care/healing. Packet endorsed to night nurse Roger RN for hand-off. Pt pending transport pick-up @1945 by [facility] services.
--- NOTE | 2024-12-30 09:02 | PD.NEUROPROG ---
Documentation for date of: 12/25/24 Subjective Subjective Interval history: Patient was seen in telemetry today at the bedside. Continues to be confused and disoriented. Continues to have generalized weakness more so in the lower extremities. Exam - Neurology Vital Signs Temp Pulse Resp BP Pulse Ox O2 Del Method 97.5 F 87 16 134/76 H 99 Room Air 12/26/24 19:55 12/26/24 19:55 12/26/24 19:55 12/26/24 19:55 12/26/24 19:55 12/26/24 19:55 Objective Labs 12/26/24 05:16 12/26/24 05:16 Assessment & Plan Additional Assessment & Plan Additional Plan: Nicolas Schrader is 64 yr male with PMH of A-fib on Eliquis, CAD s/p stent on plavix, stroke in May 2023, and CKD stage IIIb, esophageal ulcers presented to the hospital due to worsening confusion. #Acute encephalopathy #Previous stroke Ddx: anemia with GI bleeds, osteomyelitits infection, stroke, seizure. Was recently discharged on 12/19 after diagnosis of osteomyelitis of vertebra. Patient was started on 8-week course of IV antibiotics. and HH nurse noticed mentaton worsend. Currently on Plavix and eliquis. They were held in May and October 2024 for GI bleed. Hemoglobin downtrending to 8.5, hematocrit 27, MCV 89. CT head was negative for acute bleed. MR brain unsuccessful. -Repeat CT head tomorrow to assess for any interval bleed. -Continue Eliquis and Plavix - EEG showed diffuse slowing but no epileptiform discharges: Patient most likely is developing vascular dementia. -workup for peripheral neuropathy outpatient -neuro checks q4hr -seizure precautions - Encouraged him to participate with physical therapy to help with strengthening his lower extremities #Osteomyelitis Ceftriaxone 2 g daily and doxycycline 100 mg twice daily for 8 weeks. #Anemia, normocytic 2/2 #Esophageal ulcers #Gastritis #Castorena's esophagus #CKD stage IIIb #Hx of Atrial fibrillation #Hx of CAD with stents #Hx of CVA with residual deficit Primary care team to manage above conditions and ongoing care needs.
== END 2024-12-26 19:55 | disposition skilled nursing facility (03) | DRG 70 ==
LOC: SERX 17:10 → SERHOLD 17:31 → S2NX 20:12
PROVIDERS: Admitting Provider Student in an Organized Health Care Education/Training Program; Emergency Provider Emergency Medicine; PCP Family Medicine; Visit Provider Internal Medicine
DX: G93.41 Metabolic encephalopathy (principal); K22.11 Ulcer of esophagus with bleeding; L89.104 Pressure ulcer of unspecified part of back, stage 4; E87.0 Hyperosmolality and hypernatremia; I48.20 Chronic atrial fibrillation, unspecified; I13.0 Hypertensive heart and chronic kidney disease with heart failure and stage 1 through stage 4 chronic kidney disease, or unspecified chronic kidney disease; I50.20 Unspecified systolic (congestive) heart failure; M46.20 Osteomyelitis of vertebra, site unspecified; G93.40 Encephalopathy, unspecified; I25.10 Atherosclerotic heart disease of native coronary artery without angina pectoris; D64.9 Anemia, unspecified; K29.70 Gastritis, unspecified, without bleeding; N18.32 Chronic kidney disease, stage 3b; I12.9 Hypertensive chronic kidney disease with stage 1 through stage 4 chronic kidney disease, or unspecified chronic kidney disease; Z95.5 Presence of coronary angioplasty implant and graft; F01.50 Vascular dementia, unspecified severity, without behavioral disturbance, psychotic disturbance, mood disturbance, and anxiety; Z79.01 Long term (current) use of anticoagulants; Z95.828 Presence of other vascular implants and grafts; Z74.01 Bed confinement status; Z78.1 Physical restraint status; Z79.02 Long term (current) use of antithrombotics/antiplatelets; Z79.899 Other long term (current) drug therapy; Z88.2 Allergy status to sulfonamides; Z88.0 Allergy status to penicillin; Z88.5 Allergy status to narcotic agent; I69.30 Unspecified sequelae of cerebral infarction
CPT/HCPCS: 36415; 70450; 74018; 80053; 81001; 83735; 84100; 85025; 85610; 85730; 87081; 93005; 93306; 95816; 96361; 96365; 97162; J0360; J0696; J1630; J2060; J3475; J3490; J7030; Q0167; A9270; J1920

== ENCOUNTER 2024-12-31 02:09 | Inpatient (IN) | payer MEDICARE, MEDICAID, SELFPAY ==
[2024-12-31] VITALS (28 sets, daily range): BP systolic 79–150; BP diastolic 45–96; PULSE 73–150; RESP 12–97; TEMP 35.8–36.7; O2SAT 92–100; BMI 25.8
--- NOTE | 2024-12-31 03:00 | XR_ITS ---
EXAMINATION: AP chest single view TECHNIQUE: AP portable chest single view Date and time: December 31, 2024, 0405 hours, comparison December 15, 2024 INDICATIONS: Shortness of breath chest pain today. FINDINGS: Minimal prominence left ventricle Mild elevation left hemidiaphragm. Mild ectasia thoracic aorta. No pneumonia or pulmonary edema IMPRESSION: No active disease
--- NOTE | 2024-12-31 03:00 | EKG_ITS ---
[facility] Test Date: 2024-12-31 Pat Name: NARINDER JACOBO Department: Room: - Gender: Male Biomathematician: : 1960 Requested By: Ariel Mancera Order Number: [id number] Reading MD: Ariel Mancera Measurements Intervals [place] Rate: 123 P: CT: QRS: -4 QRSD: 98 T: 33 QT: 339 QTc: 486 Interpretive Statements ATRIAL FIBRILLATION WITH RAPID VENTRICULAR RESPONSE MODERATE ST DEPRESSION [0.05+ mV ST DEPRESSION] Compared to ECG 12/20/2024 14:40:44 ST (T wave) deviation now present T-wave abnormality no longer present /store/S0/[id number].pdf
[2024-12-31 03:07] LABS: Collection Type, Urine Catheter
[2024-12-31 03:12] LABS: Basophils # (Auto) 0.0 Thou/mm3 (0.0-0.2); Basophils % (Auto) 0 % (0-2.5); Eosinophils # (Auto) 0.4 Thou/mm3 (0.0-0.5); Eosinophils % (Auto) 4 % (0-10); Hematocrit 28.8 % (41.0-53.0); Hemoglobin 9.3 g/dL (13.5-16.0); Immature Granulocytes Auto 0.13 Thou/mm3 (0.00-0.00); Lymphocytes # (Auto) 1.0 Thou/mm3 (1.0-4.8); Lymphocytes % (Auto) 10 % (10-50); Mean Corpuscular HGB Conc 32.3 g/dl (31.0-37.0); Mean Corpuscular Hemoglobin 29.2 pg (25.0-35.0); Mean Corpuscular Volume 91 fL (80-100); Monocytes # (Auto) 0.5 Thou/mm3 (0.0-0.8); Monocytes % (Auto) 5 % (0-12); Neutrophils # (Auto) 8.1 Thou/mm3 (1.8-7.7); Neutrophils % (Auto) 79 % (37-80); Nucleated Red Blood Cell # 0.00 Thou/mm3 (0.00-0.00); Nucleated Red Blood Cell % 0 /100 WBC (0); Platelet Count 323 Thou/mm3 (140-440); RDW Standard Deviation 64.1 fL (35.1-43.9); Red Blood Count 3.18 Miln/mm3 (4.50-5.90); White Blood Count 10.2 Thou/mm3 (3.8-10.6)
[2024-12-31 03:16] LABS: Amorphous Crystals,Urine Present (Absent); Bacteria,Urine Rare; Bilirubin,Urine Negative (Negative); Blood,Urine 3+ (Negative); Budding Yeast,Urine Present; Clarity,Urine Turbid (Clear/Hazy); Color,Urine Yellow (Lt Yel-Yel); Glucose, Urine Negative (Negative); Hyaline Casts,Urine < 1 /hpf (0-1); Ketones,Urine 1+ (Negative); Leukocyte Esterase,Urine Positive (Negative); Nitrite,Urine Negative (Negative); PH,Urine 6.5 (5.0-7.0); Protein,Urine 1+ (Neg - Trace); RBC,Urine 141 /hpf (0-3); Specific Gravity,Urine 1.018 (1.001-1.035); Squamous Epithelial Cell,Urine 6 /hpf (0-5); Urobilinogen,Urine Negative mg/dL (0.0-1.0); WBC,Urine 456 /hpf (0-5)
[2024-12-31 03:22] LABS: Culture Indicated,Urine Yes
[2024-12-31 03:28] LABS: INR 2.1 (0.9-1.3); Partial Thromboplastin Time 44.9 Seconds (22.0-36.0); Prothrombin Time 20.7 Seconds (9.0-12.2)
[2024-12-31 03:29] LABS: Alanine Aminotransferase 31 U/L (10-49); Albumin, Serum 3.6 gm/dL (3.4-4.8); Albumin/Globulin Ratio 1.2 (1.2-2.2); Alkaline Phosphatase 130 U/L (46-116); Anion Gap 14 (7-16); Aspartate Amino Transferase 35 U/L (0-34); BUN/Creatinine Ratio 14 Ratio (12-20); Bilirubin,Total 0.9 mg/dL (0.3-1.2); Blood Urea Nitrogen 30 mg/dL (9-23); Calcium 9.2 mg/dL (8.3-10.6); Calcium (Corrected) 9.5 mg/dL (8.5-10.1); Carbon Dioxide 16.9 mMol/L (20.0-31.0); Chloride 108 mMol/L (98-107); Creatinine (Component) 2.2 mg/dL (0.6-1.3); Estimated Creatinine Clearance 31.4 mL/min (>60); Globulin 3.0 gm/dL (2.3-3.5); Glucose 89 mg/dL (74-106); Osmolality,Calculated 282 (275-295); Potassium 5.0 mMol/L (3.4-5.1); Sodium 139 mMol/L (136-145); Total Protein 6.6 gm/dL (5.7-8.2); Troponin I < 0.020 ng/mL (0.0-0.045); eGFR 33 See Note
--- NOTE | 2024-12-31 03:35 | PC.NURSE ---
THIS RN INFORMED PROVIDER JOSIE PATIENT NOT GIVEN CARDIZEM PT BP 95/74. HR AVERAGING IN THE 140'S. PATIENT UNABLE TO LAY FLAT FOR CHEST XRAY. PER PROVIDER . LET ME LOOK AT HIS LABS AND WE WILL GO FROM THERE. NO ORDERS RECIEVED.
[2024-12-31] MEDS: ONDANSETRON INJ 2 MG/ML INJ 2 ML 4 MG IVP (03:49)
[2024-12-31] MEDS: fentaNYL CIT INJ 50 mCg/ML AMP 2ML IVP (03:50)
[2024-12-31 04:05] LABS: Thyroid Stimulating Hormone 4.86 uIU/mL (0.55-4.78)
--- NOTE | 2024-12-31 04:18 | PD.EDAMS ---
Altered Mental Status RME/HPI General Chief Complaint: Altered Mental Status Stated Complaint: ALTERED Time Seen by Provider: 12/31/24 02:33 Arrival date/time: 12/31/24 02:09 RME / HPI RME / HPI narrative: DR. WANG MAIN ED EVALUATION: Patient with multiple complex medical problems including prior stroke/seizure disorder recent treatment of vertebral osteomyelitis, and gradually worsening mentation, seen recently by neurology who suspects vascular dementia now presenting with reported reduced mentation at SNF and oral bleeding. Patient has had a Hx of esophageal ulcers secondary to Castorena's esophagitis and maintained on anticoagulants for A. Fib and CAD with stents. Patient was found to be in rapid A. fib in the field with BP of 80-90 systolic. No reported fever, nausea, vomiting, or diarrhea. PMH: CVA, ID, Atrial Fibrillation, CAD, Hypercholesterolemia, HTN, Gall Bladder Disease, GI Bleed, Ulcer, GERD, Obesity, Bone Cancer, Scoliosis, Deafness, Anemia, Depression PSH: Coronary Stent, Angiogram, Tonsillectomy, Abdominal Surgery, Amputation Allergies: Collagen, Hydrocodone, Ampicillin, Sulfa, Bee Pollen Social: SNF Related Data Home Medications ?Medication ?Instructions ?Recorded ?Confirmed clopidogrel 75 mg tablet 75 mg PO QDAY 10/20/23 12/21/24 isosorbide mononitrate 30 mg 60 mg PO QDAY 10/20/23 12/21/24 tablet,extended release 24 hr Previous Rx's ?Medication ?Instructions ?Recorded apixaban 5 mg tablet (Eliquis) 5 mg PO BID #30 tabs 10/19/24 atorvastatin 40 mg tablet 40 mg PO QDAY #30 tabs 10/19/24 doxycycline hyclate 100 mg tablet 100 mg PO BID 8 weeks #112 tabs 12/18/24 ascorbic acid (vitamin C) 250 mg 500 mg (2 x 250 mg) PO BID 1 month 12/19/24 tablet (Vitamin C) #120 tabs multivitamin with folic acid 400 1 tab PO QDAY 1 month #30 tabs 12/19/24 mcg tablet (Tab-A-Lissette) pantoprazole 40 mg tablet,delayed 40 mg PO BID #30 tabs 12/19/24 release zinc sulfate 50 mg zinc (220 mg) 220 mg (4.4 x 50 mg zinc (220 mg)) 12/19/24 capsule PO QDAY 20 days #88 caps losartan 25 mg tablet 25 mg PO QDAY 1 month #30 tabs 12/25/24 metoprolol tartrate 100 mg tablet 100 mg PO BID 1 month #60 tabs 12/25/24 sennosides 8.6 mg tablet (Senna 8.6 mg PO QDAY PRN constipation 1 12/25/24 Lax) month #30 tabs levofloxacin 750 mg tablet 750 mg PO QDAY #47 tabs 12/27/24 Allergies Allergy/AdvReac Type Severity Reaction Status Date / Time bee pollen Allergy Severe Anaphylaxis Verified 12/15/24 13:39 Sulfa (Sulfonamide Allergy Intermediate Swelling Verified 12/15/24 13:39 Antibiotics) of Lip/Tongue/Throat ampicillin Allergy Unknown Hives Verified 12/15/24 13:39 hydrocodone AdvReac Unknown Nausea Verified 12/15/24 13:39 COLLAGEN Allergy Intermediate Rash Uncoded 12/15/24 13:39 Review of Systems Review of Systems ROS Unobtainable: unobtainable due to mental status Past Medical History Past Medical History NEUROLOGIC: Positive Neurological Disorders and Cerebrovascular Accident CARDIAC: Positive Cardiac Disorders, Myocardial Infarction, Atrial Fibrillation, Coronary Artery Disease, Hypercholesterolemia and Hypertension GASTROINTESTINAL: Positive Gastrointestinal Disorders, Gall Bladder Disease, Gastrointestinal Bleed, Ulcer, Gastroesophageal Reflux Disease and Obesity MUSCULOSKELETAL: Positive Musculoskeletal Disorders, Bone Cancer and Scoliosis ENT: Positive Deafness HEMATOLOGIC: Positive Blood Disorders and Anemia PSYCHO/SOCIAL: Positive Depression OTHER HISTORY: Positive Hospitalization, Falls, Blood Transfusions, Chemotherapy, Radiation Therapy and Cancer Family History FAMILY HISTORY: Positive Family Cardiac Disorders and Family Surgery Surgical History SURGICAL: Positive Cardiac Surgery, Coronary Stent, Angiogram, Endocrine Surgery, Tonsillectomy, Abdominal Surgery and Amputation ED Exam Narrative Physical exam: GEN. APPEARANCE: The patient is GCS 11, under no distress, lying down comfortably, does not look ill/toxic. Patient has good eye contact. Patient is cooperative. Patient mentally verbal open eyes spontaneously, intermittently follows commands VITALS: All vitals were reviewed and the pulse ox is 99%, which is normal according to my interpretation HEENT: Normocephalic, atraumatic and nontender. Pupils are equal and reactive. Oral mucosa is moist. Dried blood on patient's lips, oral examination with evidence of obvious source of hemorrhage. NECK: Supple, nontender, no meningismus, no JVD. There is no thyromegaly and no lymphadenopathy. CHEST: Nontender on palpation no deformity and no crepitus. CARDIOVASCULAR: Heart rapid irregular irregular rhythm, no murmur or gallop rub or extra beats. LUNGS: Clear to auscultation bilaterally with symmetrical chest rise. No laboring tachypnea or wheezing. No intercostal subcostal retraction. No rales and no rhonchi. ABDOMEN: Soft, flat, nontender to palpation, no guarding or rebound tenderness. There are no abnormal masses palpated. No pulsatile masses or bruits. Active and normal bowel sounds. EXTREMITIES: Contracted. No edema. No cyanosis. Patient is able to move all 4 extremities well SKIN: Warm and dry, no rashes noted. MUSCULOSKELETAL: No lumbar or midline bony tenderness. There is no CVA tenderness. No paraspinal muscle spasm or tenderness. NEURO: Cranial nerves II through XII grossly intact. There are no focal neurologic deficits noted. GCS is 11, did not really follow commands, occasionally with vacant stare. PSYCHIATRIC: Patient is in normal mood and affect, cooperative. LYMPHATICS: No major lymphadenopathy noted. Course Quality Measures none Orders Category Date Time Status EKG (ED ONLY) *Do not use* NOW Care 12/31/24 03:[address] head/brain wo con Stat Exams 12/31/24 04:52 Ordered EKG (ED Only) Stat Exams 12/31/24 03:00 Draft XR chest 1V portable Stat Exams 12/31/24 03:00 Taken Blood Culture (Lab) Stat Lab 12/31/24 03:01 Received CBC Stat Lab 12/31/24 03:01 Completed CMP [Comprehensive Metabolic Panel] Stat Lab 12/31/24 03:01 Completed PT [Prothrombin Time with INR] Stat Lab 12/31/24 03:01 Completed PTT [Partial Thromboplastin Time] Stat Lab 12/31/24 03:01 Completed Thyroid Stimulating Hormone Stat Lab 12/31/24 03:01 Completed Troponin I Stat Lab 12/31/24 03:01 Completed UA, C/S IF [Urinalysis, C/S if Indicated] Stat Lab 12/31/24 03:01 Completed Urine Culture Stat Lab 12/31/24 03:01 Received DILTIAZEM in NS 100 MG Med 12/31/24 05:34 Active 100 mg in 100 ml IV 5 mg/hr Diltiazem Inj [Cardizem Inj] Med 12/31/24 03:21 Discontinued 10 mg IV X1 ONE Diltiazem Inj [Cardizem Inj] Med 12/31/24 04:38 Discontinued 5 mg IV X1 ONE Diltiazem Inj [Cardizem Inj] Med 12/31/24 05:33 Discontinued 5 mg IV X1 ONE Ondansetron Inj [Zofran Inj] Med 12/31/24 03:40 Discontinued 4 mg IVP X1 ONE Sodium Chloride 0.9% 500 ml [Ns] 500 ml Med 12/31/24 04:40 Discontinued IV 500 mls/hr fentaNYL INJ [Sublimaze Inj] Med 12/31/24 03:40 Discontinued 50 mcg IVP X1 ONE Vital Signs Vital signs: Vital Signs Pulse Rate 148 H 12/31/24 02:11 Respiratory Rate 14 12/31/24 02:11 Blood Pressure 99/67 12/31/24 02:11 Pulse Oximetry (%) 99 12/31/24 02:11 Oxygen Delivery Method Room Air 12/31/24 02:11 Altered Mental Status MDM Narrative MDM Narrative:: Scribe Attestation: INiurka am scribing for and in the presence of Dr. Wang. Provider Notation: Although this document has been carefully reviewed, there may still be some phonetic and other typographical errors. These errors are purely grammatical due to imperfections in the software program and should not be construed in any way to compromise the substance of the patient's medical care during this visit. Patient with multiple complex medical problems including prior stroke/seizure disorder recent treatment of vertebral osteomyelitis, and gradually worsening mentation, seen recently by neurology who suspects vascular dementia now presenting with reported reduced mentation at SNF and oral bleeding. Patient has had a Hx of esophageal ulcers secondary to Castorena's esophagitis and maintained on anticoagulants for A. Fib and CAD with stents. Please see PE findings. Laboratory findings, including CBC and serum chemistries, demonstrate WBC 10.2, stable hemoglobin of 9.3, platelet count of 323, no left shift or associated bandemia. Serum chemistries slightly elevated creatinine above baseline of 2.2, sodium stable at 139, Troponin I undetected, TSH mildly elevated of 4.86. EKG demonstrates A fib RVR with rate at 160 bpm without acute segment changes. CXR normal cardiac silhouette, no signs of fluid overload or pneumothroax. Patient was placed on telemetry monitor, IV established, patient marginally hypotensive upon procluding anti-arhythmias, patient hydrated with IV saline. Increasing BP treated with Cardizem IV in incremental doses and current infusion of 5 mg/hours. Will attmept advanced imaging of brain given difficult to lie flat due to condition. Hospitalist contacted and agrees to consult and evaluate for possible admission. Final diagnoses include acute on chronic renal insufficienct, A Fib RVR, and Dementia. Patient data External records reviewed:: [facility] previous records (Reviewed prior ED records from 12/20/24. Patient was seen for Acute hypernatremia.) and EMS form Clinical information provided by:: EMS Social determinants that could affect healthcare access:: none Patient has the following chronic illnesses:: Atrial Fibrillation, Coronary Artery Disease, Hypercholesterolemia, Hypertension, Gall Bladder Disease, Gastrointestinal Bleed, Ulcer, Gastroesophageal Reflux Disease, Obesity, Bone Cancer, Scoliosis, Deafness, Anemia, Depression How is presenting disease/condition affected by chronic disease/condition?: exacerbated by Evaluation data The following diagnostics were reviewed and interpreted by me:: lab results, radiology exam(s) and EKG tracing(s) (EKG demonstrates ) Lab and/or radiology exams considered but not ordered:: None Interpretation Summary: RADIOLOGY Chest X-Ray: Pending official radiology report. Medications / Prescriptions Medications or Prescriptions considered but not ordered:: None Medication administrations:: Medication Administration History Diltiazem/Sodium Chloride (Diltiazem In Ns 100 Mg) 100 mg in 100 mls @ 5 mls/hr IV .Q20H HANNAH Stop: 01/30/25 05:33 Last Admin: 12/31/24 05:40 Dose: 5 mg/hr, 5 mls/hr Documented By: DT Discontinued Medications Diltiazem HCl (Diltiazem Inj 5 Mg/Ml Vial 5 Ml) 10 mg IV X1 ONE Stop: 12/31/24 03:22 Last Admin: 12/31/24 04:32 Dose: Not Given Documented By: DT Non-Admin Reason: Cancelled by Provider Diltiazem HCl (Diltiazem Inj 5 Mg/Ml Vial 5 Ml) 5 mg IV X1 ONE Stop: 12/31/24 04:39 Last Admin: 12/31/24 04:55 Dose: 5 mg Documented By: DT Diltiazem HCl (Diltiazem Inj 5 Mg/Ml Vial 5 Ml) 5 mg IV X1 ONE Stop: 12/31/24 05:34 Last Admin: 12/31/24 05:39 Dose: 5 mg Documented By: DT Fentanyl Citrate (Fentanyl Cit Inj 50 Mcg/Ml Amp 2ml) 50 mcg IVP X1 ONE Stop: 12/31/24 03:41 Last Admin: 12/31/24 03:50 Dose: 50 mcg Documented By: DT Sodium Chloride (Ns) 500 mls @ 500 mls/hr IV .Q1H ONE Stop: 12/31/24 05:39 Last Infusion: 12/31/24 05:54 Dose: Infused Documented By: Admin: 12/31/24 04:54 Dose: 500 mls/hr Documented By: DT Ondansetron HCl (Ondansetron Inj 2 Mg/Ml Inj 2 Ml) 4 mg IVP X1 ONE; Protocol Stop: 12/31/24 03:41 Last Admin: 12/31/24 03:49 Dose: 4 mg Documented By: DT See above if any Consultations Consultation(s) initiated? (list below): Yes Consultation #1 (Physician, Specialty, Details): Discussed with resident for hospitalist for admission. Reviewed the patient?s HPI, PMHx, lab and/or radiology results. Discussed treatment plan. Will consult an admission to the hospitalist. Time: 06:06 Diagnosis Differential diagnosis altered mental status: altered mental status, delirium, hypoglycemia, hyponatremia and sepsis Most likely diagnosis given after review of the tests above:: acute on chronic renal insufficienct, A Fib RVR, and Dementia. Admission Indicated Admission indicated?: indicated Explain why admission is indicated or not indicated:: acute on chronic renal insufficienct, A Fib RVR, and Dementia. Admission Request Was there a request for admission?: Yes Admission Attestation Admission request attestation: Discussed case with [] from Hospitalist service regarding admission. Discussed patients ED course, exam findings, labs, and radiology results. The Hospitalist [agrees,declines] to accept the patient for admission. Disposition Plan Disposition Plan: other (specify) (Signed out to Dr. Burgos at 6 AM) Critical Care Time Critical Care Time Critical Care Time: Yes Total Critical Care Time (min.): 40 Attestation: The high probability of sudden, clinically significant deterioration in the patient?s condition required the highest level of my preparedness to intervene urgently. The services I provided to this patient were to treat and/or prevent clinically significant deterioration. Services included the following: chart data review, reviewing nursing notes and/or old charts, documentation time, professional benefits sales consultant collaboration regarding findings and treatment options, medication orders and management, direct patient care, vital sign assessments and ordering, interpreting and reviewing diagnostic studies and lab tests. Aggregate critical care time includes only time during which I was engaged in work directly related to the patient?s care, as described above, whether at bedside or elsewhere in the Emergency Department. It did not include time spent performing other reported procedures or the services of residents, students, nurses or physician assistants. Discharge Plan Prescriptions/Referrals Prescriptions/Med Rec: No Action atorvastatin 40 mg tablet 40 mg PO QDAY Qty: 30 0RF Eliquis 5 mg tablet 5 mg PO BID Qty: 30 0RF losartan 25 mg Tablet 25 mg PO QDAY 30 Days Qty: 30 0RF sennosides [Senna Lax] 8.6 mg Tablet 8.6 mg PO QDAY PRN (Reason: constipation) 30 Days Qty: 30 0RF metoprolol tartrate 100 mg tablet 100 mg PO BID 30 Days Qty: 60 0RF levofloxacin 750 mg tablet 750 mg PO QDAY Qty: 47 0RF isosorbide mononitrate 30 mg Tablet Extended Release 24 Hr 60 mg PO QDAY clopidogrel 75 mg Tablet 75 mg PO QDAY doxycycline hyclate 100 mg Tablet 100 mg PO BID 56 Days Qty: 112 0RF Rx Instructions: To complete regimen on 02/12/2025 - eight week course ascorbic acid (vitamin C) [Vitamin C] 250 mg Tablet 500 mg PO BID 30 Days Qty: 120 0RF multivitamin with folic acid [Tab-A-Lissette] 400 mcg Tablet 1 tab PO QDAY 30 Days Qty: 30 0RF zinc sulfate 50 mg zinc (220 mg) Capsule 220 mg PO QDAY 20 Days Qty: 88 0RF pantoprazole 40 mg Tablet,Delayed Release (Dr/Ec) 40 mg PO BID Qty: 30 0RF Referrals: Christine Kay MD [Primary Care Provider] - In 1 week Problem List Clinical Impression: Atrial fibrillation with RVR, Acute renal insufficiency, Dementia Patient/Caregiver Discharge Instructions Print Language: Jordanian
--- NOTE | 2024-12-31 04:52 | XR_ITS ---
Examination: CT brain head without contrast. 2-D sagittal coronal reconstructions Date and time of exam: December 31, 2024, 0815 hours INDICATIONS: Altered mental status this morning CTDI: vol (mGy): 47.7 DLP: (mGycm): 1033 Technique: Multiple CT axial sections of the brain have been obtained, 5 mm slice thickness. Contrast has not been administered. 2-D sagittal, coronal reconstructions have been obtained Low dose protocols were performed. One or more of the following dose reduction techniques were used; automated exposure control, adjustment of the mA and/or KV according to patient size, use of iterative reconstruction technique. Findings: No significant ventricular enlargement. Intra-axial or extra-axial hemorrhage density is not seen. No mass effect or midline shift Basal cisterns are not remarkable. Fourth ventricle is midline. Cranial vault intact. Impression: Negative for acute hemorrhage, mass effect or midline shift Advise clinical correlation and follow-up accordingly
[2024-12-31] MEDS: SODIUM CHLORIDE 0.9% 500 ML 500 ML IV (04:54)
[2024-12-31] MEDS: DILTIAZEM INJ 5 MG/ML VIAL 5 ML IV ×2 (04:55→05:39)
[2024-12-31] MEDS: DILTIAZEM in NS 100 MG 100 MG/100 ML BAG IV (05:40)
--- NOTE | 2024-12-31 06:13 | PD.RESEVENT ---
Documentation for date of: 12/31/24 Event Note Event Note: Received call for possible admission at 6:10am 64 y/o M with PMhx of A-fib on chronic anticoagulation, CAD status post stent, CVA, CKD stage IIIb, Castorena's esophagus, esophageal ulcers, osteomyelitis of the spine, who presented to the ED from SNF due to Altered mental status, oral bleeding and Atrial fibrillatin with RVR. In the ED patient was placed on a diltiazem drip and became rate controlled at the time, still on Afib however. The patients mental status was however not at baseline and has been deteriorating per the ED physician and considering patient is also on anticoagulation, requested a Head CT prior to admission and will sign out to Day team. Case discussed with my attending Dr. Giselle Figueroa MD PGY-2
--- NOTE | 2024-12-31 07:42 | PC.NURSE ---
Got hand-off from power and recovery shift engineer RN who stated she requested pain medication so pt can go CT as pt is unable to tolerate lying down. This RN spoke w/ED provider to see if the admitting team will accept pt without CT as they still have one pending, ED provider stated pt is admitted as she did not get sign-out on pt. This RN called admitting team, spoke with MD Ness, who said they told power and recovery shift engineer provider that they cannot accept pt until CT was performed to r/o a bleed.
--- NOTE | 2024-12-31 07:57 | PD.EDADDENDU ---
Emergency Room Addendum <Nurys Burgos MD - Last Filed: 12/31/24 08:01> Addendum Narrative: Assumed care of patient at 0800. Patient reportedly admitted pending CT brain, however there was an issue with the medication order. Discussed with day time arch support technician who will take the patient for CT now. <Fabiola Mayo - Last Filed: 12/31/24 15:26> Addendum Narrative: Assumed care of patient at 0800. Patient reportedly admitted pending CT brain, however there was an issue with the medication order. Discussed with day time arch support technician who will take the patient for CT now. [id number]: Discussed test HPI, PMHx, lab, radiology results and/or management with resident working with the hospitalist. Will admit for further evaluation and management. Accepts patient for admission. Results <Nurys Burgos MD - Last Filed: 12/31/24 08:01> Objective Laboratory: Laboratory Last Values WBC 10.2 Thou/mm3 (3.8-10.6) 12/31/24 03:01 RBC 3.18 Miln/mm3 (4.50-5.90) L 12/31/24 03:01 Hgb 9.3 g/dL (13.5-16.0) L 12/31/24 03:01 Hct 28.8 % (41.0-53.0) L 12/31/24 03:01 MCV 91 fL (80-100) 12/31/24 03:01 MCH 29.2 pg (25.0-35.0) 12/31/24 03:01 MCHC 32.3 g/dl (31.0-37.0) 12/31/24 03:01 RDW Std Deviation 64.1 fL (35.1-43.9) H 12/31/24 03:01 Plt Count 323 Thou/mm3 (140-440) D 12/31/24 03:01 Neut % (Auto) 79 % (37-80) 12/31/24 03:01 Lymph % (Auto) 10 % (10-50) 12/31/24 03:01 [place]oshone % (Auto) 5 % (0-12) 12/31/24 03:01 Eos % (Auto) 4 % (0-10) 12/31/24 03:01 Baso % (Auto) 0 % (0-2.5) 12/31/24 03:01 Neut # (Auto) 8.1 Thou/mm3 (1.8-7.7) H 12/31/24 03:01 Lymph # (Auto) 1.0 Thou/mm3 (1.0-4.8) 12/31/24 03:01 [place] # (Auto) 0.5 Thou/mm3 (0.0-0.8) 12/31/24 03:01 Eos # (Auto) 0.4 Thou/mm3 (0.0-0.5) 12/31/24 03:01 Baso # (Auto) 0.0 Thou/mm3 (0.0-0.2) 12/31/24 03:01 Immature Gran # (Auto) 0.13 Thou/mm3 (0.00-0.00) H 12/31/24 03:01 Absolute Nucleated RBC 0.00 Thou/mm3 (0.00-0.00) 12/31/24 03:01 Immature Gran % 1 % (0-0) H 12/31/24 03:01 Nucleated RBC % 0 /100 WBC (0) 12/31/24 03:01 PT 20.7 Seconds (9.0-12.2) H D 12/31/24 03:01 INR 2.1 (0.9-1.3) H 12/31/24 03:01 APTT 44.9 Seconds (22.0-36.0) H D 12/31/24 03:01 Sodium 139 mMol/L (136-145) 12/31/24 03:01 Potassium 5.0 mMol/L (3.4-5.1) 12/31/24 03:01 Chloride 108 mMol/L (98-107) H 12/31/24 03:01 Carbon Dioxide 16.9 mMol/L (20.0-31.0) L 12/31/24 03:01 Anion Gap 14 (7-16) 12/31/24 03:01 BUN 30 mg/dL (9-23) H 12/31/24 03:01 Creatinine 2.2 mg/dL (0.6-1.3) H D 12/31/24 03:01 Estim Creat Clear Calc 31.4 mL/min (>60) L 12/31/24 03:01 eGFR 33 See Note (60-) L 12/31/24 03:01 BUN/Creatinine Ratio 14 Ratio (12-20) 12/31/24 03:01 Glucose 89 mg/dL (74-106) 12/31/24 03:01 Calculated Osmolality 282 (275-295) 12/31/24 03:01 Calcium 9.2 mg/dL (8.3-10.6) 12/31/24 03:01 Corrected Calcium 9.5 mg/dL (8.5-10.1) 12/31/24 03:01 Total Bilirubin 0.9 mg/dL (0.3-1.2) 12/31/24 03:01 AST 35 U/L (0-34) H 12/31/24 03:01 ALT 31 U/L (10-49) 12/31/24 03:01 Alkaline Phosphatase 130 U/L (46-116) H 12/31/24 03:01 Troponin I < 0.020 ng/mL (0.0-0.045) 12/31/24 03:01 Total Protein 6.6 gm/dL (5.7-8.2) 12/31/24 03:01 Albumin 3.6 gm/dL (3.4-4.8) 12/31/24 03:01 Globulin 3.0 gm/dL (2.3-3.5) 12/31/24 03:01 Albumin/Globulin Ratio 1.2 (1.2-2.2) 12/31/24 03:01 TSH 4.86 uIU/mL (0.55-4.78) H 12/31/24 03:01 Free T4 1.36 ng/dL (0.89-1.76) 12/31/24 03:01 Ur Collection Type Catheter 12/31/24 03:01 Urine Color Yellow (Lt Yel-Yel) 12/31/24 03:01 Urine Clarity Turbid (Clear/Hazy) A 12/31/24 03:01 Urine pH 6.5 (5.0-7.0) 12/31/24 03:01 Ur Specific [place] 1.018 (1.001-1.035) 12/31/24 03:01 Urine Protein 1+ (Neg - Trace) A 12/31/24 03:01 Urine Glucose (UA) Negative (Negative) 12/31/24 03:01 Urine Ketones 1+ (Negative) A 12/31/24 03:01 Urine Blood 3+ (Negative) A 12/31/24 03:01 Urine Nitrite Negative (Negative) 12/31/24 03:01 Urine Bilirubin Negative (Negative) 12/31/24 03:01 Urine Urobilinogen (Auto) Negative mg/dL (0.0-1.0) 12/31/24 03:01 Ur Leukocyte Esterase Positive (Negative) 12/31/24 03:01 Urine RBC 141 /hpf (0-3) H 12/31/24 03:01 Urine WBC 456 /hpf (0-5) H 12/31/24 03:01 Ur Squamous Epith Cells 6 /hpf (0-5) H 12/31/24 03:01 Amorphous Crystals Present (Absent) A 12/31/24 03:01 Urine Bacteria Rare (None) 12/31/24 03:01 Hyaline Casts < 1 /hpf (0-1) 12/31/24 03:01 Urine Yeast (Budding) Present (None) A 12/31/24 03:01 Ur Culture Indicated? Yes 12/31/24 03:01 <Fabiola Gael - Last Filed: 12/31/24 15:26> Objective Laboratory: Laboratory Last Values WBC 10.2 Thou/mm3 (3.8-10.6) 12/31/24 03:01 RBC 3.18 Miln/mm3 (4.50-5.90) L 12/31/24 03:01 Hgb 9.3 g/dL (13.5-16.0) L 12/31/24 03:01 Hct 28.8 % (41.0-53.0) L 12/31/24 03:01 MCV 91 fL (80-100) 12/31/24 03:01 MCH 29.2 pg (25.0-35.0) 12/31/24 03:01 MCHC 32.3 g/dl (31.0-37.0) 12/31/24 03:01 RDW Std Deviation 64.1 fL (35.1-43.9) H 12/31/24 03:01 Plt Count 323 Thou/mm3 (140-440) D 12/31/24 03:01 Neut % (Auto) 79 % (37-80) 12/31/24 03:01 Lymph % (Auto) 10 % (10-50) 12/31/24 03:01 [place] % (Auto) 5 % (0-12) 12/31/24 03:01 Eos % (Auto) 4 % (0-10) 12/31/24 03:01 Baso % (Auto) 0 % (0-2.5) 12/31/24 03:01 Neut # (Auto) 8.1 Thou/mm3 (1.8-7.7) H 12/31/24 03:01 Lymph # (Auto) 1.0 Thou/mm3 (1.0-4.8) 12/31/24 03:01 [place] # (Auto) 0.5 Thou/mm3 (0.0-0.8) 12/31/24 03:01 Eos # (Auto) 0.4 Thou/mm3 (0.0-0.5) 12/31/24 03:01 Baso # (Auto) 0.0 Thou/mm3 (0.0-0.2) 12/31/24 03:01 Immature Gran # (Auto) 0.13 Thou/mm3 (0.00-0.00) H 12/31/24 03:01 Absolute Nucleated RBC 0.00 Thou/mm3 (0.00-0.00) 12/31/24 03:01 Immature Gran % 1 % (0-0) H 12/31/24 03:01 Nucleated RBC % 0 /100 WBC (0) 12/31/24 03:01 PT 20.7 Seconds (9.0-12.2) H D 12/31/24 03:01 INR 2.1 (0.9-1.3) H 12/31/24 03:01 APTT 44.9 Seconds (22.0-36.0) H D 12/31/24 03:01 Sodium 139 mMol/L (136-145) 12/31/24 03:01 Potassium 5.0 mMol/L (3.4-5.1) 12/31/24 03:01 Chloride 108 mMol/L (98-107) H 12/31/24 03:01 Carbon Dioxide 16.9 mMol/L (20.0-31.0) L 12/31/24 03:01 Anion Gap 14 (7-16) 12/31/24 03:01 BUN 30 mg/dL (9-23) H 12/31/24 03:01 Creatinine 2.2 mg/dL (0.6-1.3) H D 12/31/24 03:01 Estim Creat Clear Calc 31.4 mL/min (>60) L 12/31/24 03:01 eGFR 33 See Note (60-) L 12/31/24 03:01 BUN/Creatinine Ratio 14 Ratio (12-20) 12/31/24 03:01 Glucose 89 mg/dL (74-106) 12/31/24 03:01 Calculated Osmolality 282 (275-295) 12/31/24 03:01 Calcium 9.2 mg/dL (8.3-10.6) 12/31/24 03:01 Corrected Calcium 9.5 mg/dL (8.5-10.1) 12/31/24 03:01 Total Bilirubin 0.9 mg/dL (0.3-1.2) 12/31/24 03:01 AST 35 U/L (0-34) H 12/31/24 03:01 ALT 31 U/L (10-49) 12/31/24 03:01 Alkaline Phosphatase 130 U/L (46-116) H 12/31/24 03:01 Troponin I < 0.020 ng/mL (0.0-0.045) 12/31/24 03:01 Total Protein 6.6 gm/dL (5.7-8.2) 12/31/24 03:01 Albumin 3.6 gm/dL (3.4-4.8) 12/31/24 03:01 Globulin 3.0 gm/dL (2.3-3.5) 12/31/24 03:01 Albumin/Globulin Ratio 1.2 (1.2-2.2) 12/31/24 03:01 TSH 4.86 uIU/mL (0.55-4.78) H 12/31/24 03:01 Free T4 1.36 ng/dL (0.89-1.76) 12/31/24 03:01 Ur Collection Type Catheter 12/31/24 03:01 Urine Color Yellow (Lt Yel-Yel) 12/31/24 03:01 Urine Clarity Turbid (Clear/Hazy) A 12/31/24 03:01 Urine pH 6.5 (5.0-7.0) 12/31/24 03:01 Ur Specific [place] 1.018 (1.001-1.035) 12/31/24 03:01 Urine Protein 1+ (Neg - Trace) A 12/31/24 03:01 Urine Glucose (UA) Negative (Negative) 12/31/24 03:01 Urine Ketones 1+ (Negative) A 12/31/24 03:01 Urine Blood 3+ (Negative) A 12/31/24 03:01 Urine Nitrite Negative (Negative) 12/31/24 03:01 Urine Bilirubin Negative (Negative) 12/31/24 03:01 Urine Urobilinogen (Auto) Negative mg/dL (0.0-1.0) 12/31/24 03:01 Ur Leukocyte Esterase Positive (Negative) 12/31/24 03:01 Urine RBC 141 /hpf (0-3) H 12/31/24 03:01 Urine WBC 456 /hpf (0-5) H 12/31/24 03:01 Ur Squamous Epith Cells 6 /hpf (0-5) H 12/31/24 03:01 Amorphous Crystals Present (Absent) A 12/31/24 03:01 Urine Bacteria Rare (None) 12/31/24 03:01 Hyaline Casts < 1 /hpf (0-1) 12/31/24 03:01 Urine Yeast (Budding) Present (None) A 12/31/24 03:01 Ur Culture Indicated? Yes 12/31/24 03:01 Imaging: Procedure(s): CT head/brain wo con Accession Number(s): [id number] cc: Ariel Rader DO; Christine Kay MD; Carlos Saunders MD~ Examination: CT brain head without contrast. 2-D sagittal coronal reconstructions Date and time of exam: December 31, 2024, 0815 hours INDICATIONS: Altered mental status this morning CTDI: vol (mGy): 47.7 DLP: (mGycm): 1033 Technique: Multiple CT axial sections of the brain have been obtained, 5 mm slice thickness. Contrast has not been administered. 2-D sagittal, coronal reconstructions have been obtained Low dose protocols were performed. One or more of the following dose reduction techniques were used; automated exposure control, adjustment of the mA and/or KV according to patient size, use of iterative reconstruction technique. Findings: No significant ventricular enlargement. Intra-axial or extra-axial hemorrhage density is not seen. No mass effect or midline shift Basal cisterns are not remarkable. Fourth ventricle is midline. Cranial vault intact. Impression: Negative for acute hemorrhage, mass effect or midline shift Advise clinical correlation and follow-up accordingly Dictated By: Carlos Saunders MD
[2024-12-31 10:35] LABS: Free T4 (Free Thyroxine) 1.36 ng/dL (0.89-1.76)
--- NOTE | 2024-12-31 11:08 | PC.NURSE ---
SPOKE W/ REZA ABOUT PTS BP DROPPING TO 79/64, WILL PUT IN NEW ORDERS
[2024-12-31] MEDS: SODIUM CHLORIDE 0.9% 500 ML 500 ML 999 ML IV (11:09)
[2024-12-31] MEDS: VANCOMYCIN/NS 1 GM IVPB 200 ML IV (11:23)
[2024-12-31] MEDS: SODIUM CHLORIDE 0.9% 1000 ML 1,000 ML 999 ML IV ×2 (11:24→13:13)
[2024-12-31 11:36] LABS: Lactate (Lactic Acid) 2.7 mMol/L (0.4-2.0)
[2024-12-31 11:48] LABS: Beta Hydroxybutyrate 1.3 mmol/L (<0.6)
[2024-12-31] MEDS: CEFEPIME INJ 1 GM in SODIUM CHLORIDE 0.9% (Popper) 50 ML IV (13:17)
[2024-12-31] MEDS: AMIODARONE 150 MG IVPB 150 MG/100 ML BAG 600 MG IV (13:33)
[2024-12-31] MEDS: AMIODARONE 360 MG IVPB 360 MG/200 ML BAG 33.333 MG IV (13:49)
--- NOTE | 2024-12-31 14:02 | ESHP_ITS ---
<Statement entered by Pedro Anne MD - 12/31/24 16:13> I have reviewed the note and agree with the resident's assessment & plan with exceptions as below. I have personally reviewed labs, imaging, home meds/prior records, examined the patient, formulated and discussed management plan with my attending 64-year-old male with past medical history of A-fib on Eliquis, CAD s/p multiple stents on Plavix, CVA, CKD, Castorena's esophagus, previous UGIB, esophageal ulcers, and chronic osteomyelitis was admitted to hospital on 12/31/2024 due to acute encephalopathy likely secondary to metabolic versus infectious etiology as well as A-fib with RVR and GI bleed. [facility] due to altered mental status and was tachycardic and had some blood in his mouth. On assessment patient was very hard of hearing, but his was at bedside and stated that the patient had some bloody vomiting and that he has not been eating as well as he was before. Patient was still confused, but moving all extremities and tracking with his eyes. His labs that show hemoglobin of 9.3 which seems to be stable. UA was significant for multiple WBCs as well as protein and bacteria therefore we started vancomycin and cefepime given his most recent urine cultures which grew Enterococcus multidrug-resistant. Patient's beta hydroxy was elevated therefore started D5W and asked a 75 cc/h for 1 L and lactic acid was elevated and on repeat down trended after IV fluids. GI was consulted. Patient was having low blood pressure and was on diltiazem drip by the ED, which was switched to amiodarone drip given that patient's blood pressure was soft. Otherwise no other complaints at this time and afterwards in the afternoon patient's blood pressure was stable and he was more responsive. In summary #Acute encephalopathy #UTI # Lactic acidosis #High anion gap metabolic acidosis, #Starvation ketoacidosis ?IV fluids with D5 W NS Vancomycin and cefepime #GI bleed #Hematemesis #Acute blood loss anemia? Hemoglobin stable Type and screen ordered No need for blood transfusion at this time GI consulted #A-fib with RVR Patient diltiazem was discontinued and transition to amiodarone drip and rate improved into the 80s Pedro Anne PGY2 Disclaimer: Even though this this note was dictated by speech recognition and even though it was carefully revised there may still be minor errors in [employer] office instructor due to voice recognition software. Documentation for date of: 12/31/24 HPI History of Present Illness Chief complaint: AMS History of present illness: Agustin Schrader 64M pmhx significant for A-fib on Eliquis, CAD s/p multiple stents on Plavix, CVA wheelchair bound, CKD stage IIIb, Castorena's esophagus, hx of UGIB and esophageal ulcers, chronic osteomyelitis of the T11-T12 spine s/p debridement and currently on oral abx, who presented to [facility] ED on 12/31 from SNF due to altered mental status, oral bleeding and Atrial fibrillation with RVR. Patient does not answer questions at this time and is poor historian. Per at bedside, 2 days ago he was able to communicate and was oriented at his baseline. Endorses patient has had decreased PO intake. However today notified her that he was being transferred to be ED for altered mental status. Tinoco in place and draining as previously patient admitted 12/20 for AMS 2/2 urinary retention. Patient reports pain at back, unable to assess further review of systems. PMHx: as above Surgical Hx: Debridement of skin infection thoracic spinal area. Amputated right third digit. cerebral thrombectomy. FHx: Noncontributory Social Hx: per chart review, denies alcohol, tobacco and recreational/illicit drug use Allergies: Ampicillin, sulfa drugs, hydrocodone, bee stings, collagen Medications: per med rec In ED, BP 99/67, HR 148 RR 14 afebrile satting 99% RA, significant labs include hemoglobin 9.3, PT 20.7, INR 2.1, APTT 44, chloride 108, bicarb 16.9, BUN 30, creatinine 2.2, lactic acid 2.7, troponins negative, beta-hydroxybutyrate 1.3, TSH 4.6 normal T4. UA turbid, 1+ protein, 1+ ketone, 3+ blood, +LE, 141 RBC, 456 WBC, yeast present. EKG shows atrial fibrillation with RVR rate 123, CXR no active disease, CT head negative for acute hemorrhage, mass effect or midline shift. In ED, given Zofran, fentanyl citrate 50 mcg x 1, NS 500 cc, and dilt drip. Patient was admitted for workup of AMS and management of UTI and Afib RVR. Review of Systems Review of Systems ROS Unobtainable: unobtainable due to mental status Exam Vital Signs Temp Pulse Resp BP Pulse Ox O2 Del Method 98.0 F 74 22 H 104/59 L 100 Room Air 12/31/24 11:25 12/31/24 13:49 12/31/24 11:06 12/31/24 13:49 12/31/24 11:06 12/31/24 06:45 Narrative Exam GENERAL: alert, unable to assess orientation, no acute distress, not following commands, crusted blood on lower lip HEENT: mucous membranes dry, bilateral sclera anicteric CARDIOVASCULAR: regular rate, irregular rhythm, S1/S2 present, no murmurs appreciated PULMONARY: clear to auscultation bilaterally, no rales/rhonchi/wheezes ABDOMINAL: soft, non-tender, non-distended, no rebound/guarding, bowel sounds present EXTREMITIES: no peripheral edema SKIN: warm and dry, no rashes, +stage IV pressure ulcer at lower thoracic region with bone showing, non purulent and non erythematous. NEURO: CN II-XII grossly intact Results: Labs 01/01/25 05:47 01/01/25 05:47 Labs: Short CBC 12/31/24 Range/Units 03:01 WBC 10.2 (3.8-10.6) Thou/mm3 Hgb 9.3 L (13.5-16.0) g/dL Hct 28.8 L (41.0-53.0) % Plt Count 323 D (140-440) Thou/mm3 BMP 12/31/24 03:01 Sodium 139 Potassium 5.0 Chloride 108 H Carbon Dioxide 16.9 L BUN 30 H Creatinine 2.2 H D Glucose 89 Calcium 9.2 Cardiac Enzymes 12/31/24 Range/Units 03:01 Troponin I < 0.020 (0.0-0.045) ng/mL Liver Function 12/31/24 Range/Units 03:01 Total Bilirubin 0.9 (0.3-1.2) mg/dL AST 35 H (0-34) U/L ALT 31 (10-49) U/L Alkaline Phosphatase 130 H (46-116) U/L Albumin 3.6 (3.4-4.8) gm/dL Urine 10/26/25 Range/Units 03:01 Urine Color Yellow (Lt Yel-Yel) Urine Clarity Turbid A (Clear/Hazy) Urine pH 6.5 (5.0-7.0) Ur Specific [place] 1.018 (1.001-1.035) Urine Protein 1+ A (Neg - Trace) Urine Glucose (UA) Negative (Negative) Quality Measures Quality Measures none Medications Home Medications and Allergies Home Medications ?Medication ?Instructions ?Recorded ?Confirmed ?Type clopidogrel 75 mg tablet 75 mg PO QDAY 10/20/2301/01 History isosorbide mononitrate 30 mg 60 mg PO QDAY 10/20/23 History tablet,extended release 24 hr acetaminophen 325 mg tablet 650 mg PO Q4H PRN pain 01/01/25 History atorvastatin 40 mg tablet 40 mg PO HS 01/01/25 5 History Allergies Allergy/AdvReac Type Severity Reaction Status Date / Time bee pollen Allergy Severe Anaphylaxis Verified 12/15/24 13:39 Sulfa (Sulfonamide Allergy Intermediate Swelling Verified 12/15/24 13:39 Antibiotics) of Lip/Tongue/Throat ampicillin Allergy Unknown Hives Verified 12/15/24 13:39 hydrocodone AdvReac Unknown Nausea Verified 12/15/24 13:39 COLLAGEN Allergy Intermediate Rash Uncoded 12/15/24 13:39 Visit Medications Acetaminophen (Acetaminophen 325 Mg Tablet) 650 mg PO Q6H PRN PRN Reason: Fever >100.4 and/or pain Stop: 01/30/25 09:58 Cefepime HCl 1 gm/ Sodium (Chloride) 50 mls @ 100 mls/hr IV QDAY HANNAH Stop: 01/07/25 11:14 Last Admin: 12/31/24 13:17 Dose: 100 mls/hr Amiodarone HCl/Dextrose (Nexterone Ivpb) 360 mg in 200 mls @ 33.333 mls/hr IV .Q6H ONE Stop: 12/31/24 17:56 Last Admin: 12/31/24 13:49 Dose: 33.333 mls/hr Amiodarone HCl/Dextrose (Nexterone Ivpb) 360 mg in 200 mls @ 16.667 mls/hr IV .Q12H HANNAH Stop: 01/01/25 17:56 Ondansetron HCl (Ondansetron Inj 2 Mg/Ml Inj 2 Ml) 4 mg IVP Q6H PRN; Protocol PRN Reason: NAUSEA OR VOMITING Stop: 01/30/25 09:58 Pharmacy Consult (Vancomycin Pharmacy To Dose 1 Each Each) 1 each IV QDAY PRN PRN Reason: PROTOCOL Stop: 01/30/25 10:39 Sennosides (Senna Tablet) 1 tab PO QDAY PRN; Protocol PRN Reason: constipation Stop: 01/30/25 09:58 Discontinued Medications Diltiazem HCl (Diltiazem Inj 5 Mg/Ml Vial 5 Ml) 10 mg IV X1 ONE Stop: 12/31/24 03:22 Last Admin: 12/31/24 04:32 Dose: Not Given Diltiazem HCl (Diltiazem Inj 5 Mg/Ml Vial 5 Ml) 5 mg IV X1 ONE Stop: 12/31/24 04:39 Last Admin: 12/31/24 04:55 Dose: 5 mg Diltiazem HCl (Diltiazem Inj 5 Mg/Ml Vial 5 Ml) 5 mg IV X1 ONE Stop: 12/31/24 05:34 Last Admin: 12/31/24 05:39 Dose: 5 mg Fentanyl Citrate (Fentanyl Cit Inj 50 Mcg/Ml Amp 2ml) 50 mcg IVP X1 ONE Stop: 12/31/24 03:41 Last Admin: 12/31/24 03:50 Dose: 50 mcg Fentanyl Citrate (Fentanyl Cit Inj 50 Mcg/Ml Amp 2ml) 25 mcg IVP Q15MIN PRN PRN Reason: SEDATION Sodium Chloride (Ns) 500 mls @ 500 mls/hr IV .Q1H ONE Stop: 12/31/24 05:39 Last Infusion: 12/31/24 05:54 Dose: Infused Diltiazem/Sodium Chloride (Diltiazem In Ns 100 Mg) 100 mg in 100 mls @ 5 mls/hr IV .Q20H HANNAH Stop: 01/30/25 05:33 Last Infusion: 12/31/24 11:46 Dose: 0 mg/hr, 0 mls/hr Ceftriaxone Sodium/Dextrose (Rocephin/D5w 1gm Iv Premix) 1 gm in 50 mls @ 100 mls/hr IV QDAY HANNAH Stop: 01/07/25 10:39 Vancomycin/Sodium Chloride (Vancomycin/Ns 1 Gm Ivpb) 200 mls @ 120 mls/hr IV X1 ONE Stop: 12/31/24 12:24 Last Infusion: 12/31/24 13:14 Dose: Infused Sodium Chloride (Ns) 1,000 mls @ 999 mls/hr IV .Q1H1M ONE Stop: 12/31/24 12:09 Last Admin: 12/31/24 13:13 Dose: 999 mls/hr Sodium Chloride (Ns) 500 mls @ 999 mls/hr IV .Q31M ONE Stop: 12/31/24 11:40 Last Admin: 12/31/24 11:09 Dose: 999 mls/hr Amiodarone HCl/Dextrose (Nexterone Ivpb) 150 mg in 100 mls @ 600 mls/hr IV .Q10M ONE Stop: 12/31/24 11:56 Last Admin: 12/31/24 13:33 Dose: 600 mls/hr Ondansetron HCl (Ondansetron Inj 2 Mg/Ml Inj 2 Ml) 4 mg IVP X1 ONE; Protocol Stop: 12/31/24 03:41 Last Admin: 12/31/24 03:49 Dose: 4 mg Assessment & Plan Plan Agustin Raciel 64M pmhx significant for A-fib on Eliquis, CAD s/p multiple stents on Plavix, CVA wheelchair bound, CKD stage IIIb, Castorena's esophagus, hx of UGIB and esophageal ulcers, chronic osteomyelitis of the T11-T12 spine s/p debridement and currently on oral abx, who presented to [facility] ED on 12/31 from SNF due to altered mental status, oral bleeding and atrial fibrillation RVR. #Encephalopathy, metabolic vs infectious #UTI #Lactic acidosis #Starvation ketosis Presented with 1-2 days of AMS at SNF, per alert and conversional two days ago, however endorses decreased PO intake. Previously presented on 12/15 for altered mental status secondary to urinary retention, however in ED, Tinoco catheter in place. Bicarb 16.9, lactic acid 2.7, BHB 1.3. UA turbid, 1+ protein, 1+ ketone, 3+ blood, +LE, 141 RBC, 456 WBC, yeast present. Ddx: sepsis 2/2 UTI vs starvation ketosis 2/2 poor PO intake Plan: - Vancomycin and cefepime (12/31- - s/p 2L NS total boluses in ED - F/u repeat lactate and BHB - D5W at 75cc/hr for 1L #Upper GIB? #Hematemasis #Acute blood loss anemia? #Hx of esophageal ulcers #Castorena's esophagus Presented with at least one episode of hematemasis, dried crusted blood on lips. Unknown how many episodes occurred. Hgb 9.3, increased from last admission. No history of cirrhosis per imaging. 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 Home medications include atorvastatin 40 mg daily, Eliquis 5 mg twice daily, metoprolol tartrate 100 mg twice daily, losartan 25 mg daily. s/p initiation of dilt drip in ED, however SBP 79 and transitioned to amio drip. Plan: - Hold home metoprolol tartrate 100 mg BID and losartan iso soft BP - Amiodarone drip, plan to transition to PO following - Hold Eliquis and Plavix iso hematemasis - Home atorvastatin 40 mg qhs #ARIA on CKDIIIb #Hx of Enterococcus UTI On admission, creatinine 2.2, BL 1.4-1.5. Likely 2/2 UTI vs lactic acidosis vs dehydration/poor p.o. intake. Plan: - Gentle IVF with D5 at 70 cc/hr - Renally dose and avoid nephrotoxic medications - F/u renal US #Chronic osteomyelitis Longstanding history of stage IV ulcer at T11-T12 with history of debridement and on long-term antibiotics. On previous admission on 12/15, discharged with 8-week course of p.o. antibiotics of doxycycline and levofloxacin as patient pulled the PICC line. Plan: - Abx as above - Wound care consulted Hospital management: Lines: PIV Diet: NPO Bowel: Senna prn GI prophylaxis: IV pantoprazole 40 mg BID DVT prophylaxis: SCDs iso GIB Disposition: tele, amio drip, IV abx CODE STATUS: Plan of care discussed with attending Dr. Bellamy, and PGY-2 Dr. Ness. Yohana Torres DO PGY-1 Internal Medicine Attending Provider Attestation/Addendum I, Suzanna Bellamy DO, attest that I was physically present for the umanzor portions of the service and evaluated the patient with the resident and I reviewed and discussed the case with the resident and agree with the resident's findings and plans of care as documented above Patient is a 64-year-old male with past medical history of A-fib on Eliquis, Castorena's esophagus, CAD status post stent on Plavix, CVA, CKD stage III, esophageal ulcers, spinal osteomyelitis, infected pressure ulcer and abscess status post drainage and complicated by wound dehiscence who was brought to the ED due to altered mental status and suspected hematemesis. [facility] from [facility]. In the ED, patient was noted to have A-fib with RVR. He has also been less responsive and decreased p.o. intake for the past week. Patient was recently discharged from the hospital for similar symptoms of altered mental status. During that hospitalization, patient was noted to have acute urinary retention and was discharged with Tinoco catheter. In the ED, patient was noted to have hemoglobin 9.3 (baseline hemoglobin of 8.3), metabolic acidosis with bicarb of 60.9, acute kidney injury with creatinine of 2.2 [creatinine at baseline of 1.4] and lactic acid of 2.7. Patient has been afebrile. However, UA noted to have pyuria concerning for UTI. He was placed on Cardizem drip in the ED due to A-fib with RVR. However, patient's blood pressure has been low?normal. Will admit patient to telemetry for further workup and medical management of possible UTI and A-fib with RVR likely secondary to infection. Will switch Cardizem drip to amiodarone due to hypotension. Patient has received 3 L of IV fluids and has been fluid responsive. Will continue to monitor lactic acidosis. Suspect that patient may have metabolic acidosis and ARIA secondary to dehydration and poor p.o. intake. Wound on back appears to be unchanged and clean. There is some serosanguineous output noted on hydrocolloid dressing. Will obtain urine cultures and place patient on vancomycin and cefepime at this time to cover for both his osteomyelitis which she remains to be on treatment until February, as well as his urinary tract infection. Will follow-up with cultures. Will also obtain renal ultrasound due to ARIA on CKD. Patient has crusted blood over his lips. He is very hard of hearing, but is alert and tracking with eyes. Patient has been trying to remove any lines that have been irritating. Patient has not been verbal which he is at baseline. Will keep patient n.p.o. at this time as he will need EGD. Will will trend H&H and transfuse if hemoglobin is less than 8.
--- NOTE | 2024-12-31 14:27 | XR_ITS ---
Examination: Retroperitoneal ultrasound, complete Technique: Multiple high resolution grayscale images of the retroperitoneum obtained, including kidneys and bladder. Exam date and time: December 31, 2024, 1444 hours INDICATIONS: Renal insufficiency on laboratory examination today. FINDINGS: Right kidney 11.3 cm renal cortex 1.6 cm Upper pole cyst 27 mm lower pole cyst 26 mm Moderate renal scar formation Left kidney obscured by bowel gas Bladder not visualized IMPRESSION: Limited study Moderate right renal scar formation, no right hydronephrosis
[2024-12-31 14:34] LABS: Reflex Lactate? Y
--- NOTE | 2024-12-31 14:45 | PC.NURSE ---
Unable to do full head-to-toe/adult shift assessment on patient d/t patient being taken to endo very shortly after arrival to floor. Admission documentation done with pt , Sheila.
[2024-12-31 15:01] LABS: Lactate (Lactic Acid) 1.8 mMol/L (0.4-2.0)
--- NOTE | 2024-12-31 16:02 | PC.NURSE ---
PT TRANSPORTED TO FLOOR CONNECTED TO TELE BY THIS RN, STUNTMAN, PBX SUPERVISOR WITHOUT INCIDENT. FLOOR STAFF AT BEDSIDE TO ASSUME CARE.
--- NOTE | 2024-12-31 17:56 | PD.IMCONS ---
HPI Data of Consult Requesting Physician: Suzanna Bellamy DO Primary Care Provider: Christine Kay MD Consult Narrative Reason for consult: Hematemesis History of present illness: 64 years old male presented to the emergency room from the care facility with bouts of hematemesis He has had previous presentations like that and was found to have distal esophageal ulceration Patient does take both Eliquis for chronic atrial fibrillation with RVR in the past as well as coronary artery disease status post multiple stents and on Plavix Patient also has a history of CVA CKD Castorena's esophagus esophageal ulcers and chronic osteomyelitis cc:: cc: Suzanna Bellamy DO Review of Systems Review of Systems ROS Unobtainable: unobtainable due to medical condition Past Medical History Surgical History OTHER SURGICAL HX: As in the history of present illness Meds Home Medications and Allergies Home Medications ?Medication ?Instructions ?Recorded ?Confirmed ?Type clopidogrel 75 mg tablet 75 mg PO QDAY 10/20/23 12/21/24 History isosorbide mononitrate 30 mg 60 mg PO QDAY 10/20/23 12/21/24 History tablet,extended release 24 hr Allergies Allergy/AdvReac Type Severity Reaction Status Date / Time bee pollen Allergy Severe Anaphylaxis Verified 12/15/24 13:39 Sulfa (Sulfonamide Allergy Intermediate Swelling Verified 12/15/24 13:39 Antibiotics) of Lip/Tongue/Throat ampicillin Allergy Unknown Hives Verified 12/15/24 13:39 hydrocodone AdvReac Unknown Nausea Verified 12/15/24 13:39 COLLAGEN Allergy Intermediate Rash Uncoded 12/15/24 13:39 Exam Vital Signs Temp Pulse Resp BP Pulse Ox O2 Del Method 98.1 F 88 18 116/71 100 Room Air 12/31/24 15:22 12/31/24 15:22 12/31/24 15:22 12/31/24 15:22 12/31/24 15:22 12/31/24 15:22 Constitutional Comments: Chronically ill-appearing Routine Respiratory Exam Comments: Normal to auscultation Routine Abdominal Exam Comments: Soft nontender Results Labs 12/31/24 03:01 12/31/24 03:01 Labs: Short CBC 12/31/24 Range/Units 03:01 WBC 10.2 (3.8-10.6) Thou/mm3 Hgb 9.3 L (13.5-16.0) g/dL Hct 28.8 L (41.0-53.0) % Plt Count 323 D (140-440) Thou/mm3 BMP 12/31/24 03:01 Sodium 139 Potassium 5.0 Chloride 108 H Carbon Dioxide 16.9 L BUN 30 H Creatinine 2.2 H D Glucose 89 Calcium 9.2 Cardiac Enzymes 12/31/24 Range/Units 03:01 Troponin I < 0.020 (0.0-0.045) ng/mL Liver Function 12/31/24 Range/Units 03:01 Total Bilirubin 0.9 (0.3-1.2) mg/dL AST 35 H (0-34) U/L ALT 31 (10-49) U/L Alkaline Phosphatase 130 H (46-116) U/L Albumin 3.6 (3.4-4.8) gm/dL Urine 12/31/24 Range/Units 03:01 Urine Color Yellow (Lt Yel-Yel) Urine Clarity Turbid A (Clear/Hazy) Urine pH 6.5 (5.0-7.0) Ur Specific [place] 1.018 (1.001-1.035) Urine Protein 1+ A (Neg - Trace) Urine Glucose (UA) Negative (Negative) Assessment and Plan Additional Assessment & Plan Additional Plan: # Hematemesis most likely bleeding from the esophageal ulcerations as documented on the previous endoscopies Plan Consent obtained for fiberoptic esophagogastroduodenoscopy with possible biopsy possible therapeutic intervention under intravenous moderate sedation from his whom I met her in the room We will proceed with the procedure Patient has been n.p.o. Continue IV Protonix Continue serial CBCs and transfuse as necessary Other medical problems include Coronary artery status post multiple stent placement on Plavix Chronic atrial fibrillation with history of RVR on Eliquis CVA CKD Castorena's esophagus Thank you very much for the opportunity to participate in the care of this patient
[2024-12-31 19:44] LABS: Beta Hydroxybutyrate 1.1 mmol/L (<0.6)
[2024-12-31 20:29] LABS: Albumin, Serum 2.9 gm/dL (3.4-4.8); Anion Gap 15 (7-16); BUN/Creatinine Ratio 16 Ratio (12-20); Blood Urea Nitrogen 35 mg/dL (9-23); Calcium 8.5 mg/dL (8.3-10.6); Calcium (Corrected) 9.4 mg/dL (8.5-10.1); Carbon Dioxide 16.1 mMol/L (20.0-31.0); Chloride 112 mMol/L (98-107); Creatinine (Component) 2.2 mg/dL (0.6-1.3); Estimated Creatinine Clearance 31.4 mL/min (>60); Glucose 84 mg/dL (74-106); Osmolality,Calculated 291 (275-295); Phosphorous 4.8 mg/dL (2.4-5.1); Potassium 4.4 mMol/L (3.4-5.1); Sodium 143 mMol/L (136-145); eGFR 33 See Note
[2024-12-31 21:58] LABS: Base Excess, Venous -6 (-3-3); O2 Saturation, Venous 72 % (96-97); PCO2, Venous 31 mmHg (36-56); PO2, Venous 40 mmHg (15-58); pH, Venous 7.38 (7.33-7.66)
[2024-12-31] MEDS: AMIODARONE 360 MG IVPB 360 MG/200 ML BAG 16.667 MG IV (22:05)
[2024-12-31 22:36] LABS: Anion Gap 14 (7-16); BUN/Creatinine Ratio 20 Ratio (12-20); Blood Urea Nitrogen 45 mg/dL (9-23); Calcium 7.9 mg/dL (8.3-10.6); Carbon Dioxide 17.9 mMol/L (20.0-31.0); Chloride 114 mMol/L (98-107); Creatinine (Component) 2.2 mg/dL (0.6-1.3); Estimated Creatinine Clearance 31.4 mL/min (>60); Glucose 98 mg/dL (74-106); Osmolality,Calculated 302 (275-295); Potassium 4.5 mMol/L (3.4-5.1); Sodium 146 mMol/L (136-145); eGFR 33 See Note
[2025-01-01] VITALS (8 sets, daily range): BP systolic 120–135; BP diastolic 58–87; PULSE 68–101; RESP 13–97; TEMP 35.9–36.4; O2SAT 100; BMI 29.7; BMI 29.6
[2025-01-01 06:08] LABS: Basophils # (Auto) 0.0 Thou/mm3 (0.0-0.2); Basophils % (Auto) 0 % (0-2.5); Eosinophils # (Auto) 0.5 Thou/mm3 (0.0-0.5); Eosinophils % (Auto) 5 % (0-10); Hematocrit 23.0 % (41.0-53.0); Immature Granulocytes Auto 0.08 Thou/mm3 (0.00-0.00); Lymphocytes # (Auto) 0.6 Thou/mm3 (1.0-4.8); Lymphocytes % (Auto) 6 % (10-50); Mean Corpuscular HGB Conc 30.9 g/dl (31.0-37.0); Mean Corpuscular Hemoglobin 28.6 pg (25.0-35.0); Mean Corpuscular Volume 93 fL (80-100); Monocytes # (Auto) 0.4 Thou/mm3 (0.0-0.8); Monocytes % (Auto) 3 % (0-12); Neutrophils # (Auto) 9.6 Thou/mm3 (1.8-7.7); Neutrophils % (Auto) 86 % (37-80); Nucleated Red Blood Cell # 0.02 Thou/mm3 (0.00-0.00); Nucleated Red Blood Cell % 0 /100 WBC (0); Platelet Count 231 Thou/mm3 (140-440); RDW Standard Deviation 65.6 fL (35.1-43.9); Red Blood Count 2.48 Miln/mm3 (4.50-5.90); White Blood Count 11.2 Thou/mm3 (3.8-10.6)
[2025-01-01 06:22] LABS: Hemoglobin 7.1 g/dL (13.5-16.0)
[2025-01-01 06:45] LABS: Alanine Aminotransferase 26 U/L (10-49); Albumin, Serum 3.0 gm/dL (3.4-4.8); Albumin/Globulin Ratio 1.2 (1.2-2.2); Alkaline Phosphatase 106 U/L (46-116); Anion Gap 15 (7-16); Aspartate Amino Transferase 37 U/L (0-34); BUN/Creatinine Ratio 17 Ratio (12-20); Bilirubin,Total 0.6 mg/dL (0.3-1.2); Blood Urea Nitrogen 37 mg/dL (9-23); Calcium 8.5 mg/dL (8.3-10.6); Calcium (Corrected) 9.3 mg/dL (8.5-10.1); Carbon Dioxide 17.6 mMol/L (20.0-31.0); Chloride 113 mMol/L (98-107); Creatinine (Component) 2.2 mg/dL (0.6-1.3); Estimated Creatinine Clearance 35.3 mL/min (>60); Globulin 2.5 gm/dL (2.3-3.5); Glucose 104 mg/dL (74-106); Magnesium 1.3 mg/dL (1.6-2.6); Osmolality,Calculated 299 (275-295); Phosphorous 4.7 mg/dL (2.4-5.1); Potassium 4.0 mMol/L (3.4-5.1); Sodium 146 mMol/L (136-145); Total Protein 5.5 gm/dL (5.7-8.2); eGFR 33 See Note
[2025-01-01] MEDS: DEXTROSE 5%-NS 1,000 ML 80 ML IV (07:34)
[2025-01-01] MEDS: DEXTROSE 5%-0.45% NS 1,000 ML 85 ML IV (07:59)
--- NOTE | 2025-01-01 10:03 | XR_ITS ---
Examination: Abdomen AP single view Technique: AP portable supine abdomen, single view Exam date and time: January 01, 2025, 1007 hours INDICATIONS: Abdominal pain this week. FINDINGS: Mild small bowel ileus Surgical clips upper abdomen on the right Severe osteopenia No free air Possible kyphoplasties at T12-L1 IMPRESSION: Mild small bowel ileus Recommend lumbar spine follow-up to assess T12 and L1 as above
--- NOTE | 2025-01-01 10:32 | PC.NURSE ---
Unable to give Blood due to lack of iv site. DR. Ness is aware.
--- NOTE | 2025-01-01 11:36 | ESPR_ITS ---
<Statement entered by Pedro Anne MD - 01/01/25 13:55> I have reviewed the note and agree with the resident's assessment & plan with exceptions as below. I have personally reviewed labs, imaging, home meds/prior records, examined the patient, formulated and discussed management plan with my attending Patient was seen and examined bedside's morning. No acute overnight events. EGD was planned for yesterday evening, but cannot be done as patient did not have IV access. Multiple nurses have attempted even with ultrasound guidance, but have been unsuccessful. At this time we will order PICC line placement by IR as patient will also need IV antibiotics long-term for osteomyelitis. Patient today was more responsive and was AO x 1 only to person. Ordered abdominal x-ray which showed SBO small bowel ileus. Will transfuse 1 PRBC and keep 1 ready after PICC line is inserted. Will continue with Amio drip for now as patient is n.p.o. and likely transition to p.o. tomorrow. Gave D5 W half NS at 85 cc/h as patient continues to have acidosis like secondary to starvation ketoacidosis and his sodium is mildly uptrending. Otherwise EGD for today. Pedro Anne PGY2 Disclaimer: Even though this this note was dictated by speech recognition and even though it was carefully revised there may still be minor errors in financial aids officer due to voice recognition software. Documentation for date of: 01/01/25 Subjective Subjective Interval history: Overnight, GI Dr. Claros did EGD however IV could not be accessed. Patient seen examined at bedside. Patient is alert and oriented x 1 to person only endorses pain only in right arm in which he has IV. Does not remember last bowel movement or when he started vomiting blood. Labs and vitals reviewed. SBP 110- 135, telemetry reviewed, atrial fibrillation rate 90-1 10, no RVR. WBC 11.2, hemoglobin decreased from 9.3 now 7.1, sodium 146, potassium 4.0, bicarb 17.6, BUN stable elevated 32, creatinine stable at 2.2, magnesium low 1.3, repleted with 2 g. KUB showed mild small bowel ileus. Ordered 2 PRBC, 1 to transfuse however IV be unable to be placed thus patient will receive PICC line today. EGD to be done tonight. Continue vancomycin and cefepime, started D5 W half NS at 85 cc an hour for n.p.o. status, starvation ketosis and hypernatremia. Follow-up urine cultures. Amio drip to finish tonight, cardiology consulted recs appreciated. Exam Vital Signs Temp Pulse Resp BP Pulse Ox O2 Del Method O2 Flow Rate 96.7 F L 78 14 120/58 L 100 Room Air 3 01/01/25 08:00 01/01/25 08:00 01/01/25 08:00 01/01/25 08:00 01/01/25 08:00 01/01/25 08:00 12/31/24 18:00 Narrative Exam GENERAL: alert and oriented x1 to name, no acute distress, crusted and red blood on lower lip HEENT: mucous membranes dry, bilateral sclera anicteric CARDIOVASCULAR: regular rate, irregular rhythm, S1/S2 present, no murmurs appreciated PULMONARY: clear to auscultation bilaterally, no rales/rhonchi/wheezes ABDOMINAL: soft, non-tender, non-distended, no rebound/guarding, bowel sounds present EXTREMITIES: no peripheral edema SKIN: warm and dry, no rashes, +stage IV pressure ulcer at lower thoracic region with bone showing, non purulent and non erythematous. NEURO: CN II-XII grossly intact, following commands Objective Labs 01/02/25 04:55 01/02/25 08:55 Labs: Laboratory Results - last 24 hr 12/31/24 12/31/24 12/31/24 11:24 14:58 19:29 WBC RBC Hgb Hct MCV MCH MCHC RDW Std Deviation Plt Count Neut % (Auto) Lymph % (Auto) Bay % (Auto) Eos % (Auto) Baso % (Auto) Neut # (Auto) Lymph # (Auto) Bay # (Auto) Eos # (Auto) Baso # (Auto) Immature Gran # (Auto) Absolute Nucleated RBC Immature Gran % Nucleated RBC % VBG pH VBG pCO2 VBG pO2 VBG O2 Sat (Gretel) VBG Base Excess Sodium 143 Potassium 4.4 D Chloride 112 H Carbon Dioxide 16.1 L Anion Gap 15 BUN 35 H Creatinine 2.2 H Estim Creat Clear Calc 31.4 L eGFR 33 L BUN/Creatinine Ratio 16 Glucose 84 Calculated Osmolality 291 Lactic Acid 2.7 H 1.8 Calcium 8.5 Corrected Calcium 9.4 Phosphorus 4.8 Magnesium Total Bilirubin AST ALT Alkaline Phosphatase Total Protein Albumin 2.9 L D Globulin Albumin/Globulin Ratio Beta-Hydroxybutyrate/Acetoacetate 1.3 H 1.1 H Blood Type O Positive Antibody Screen NEGATIVE Crossmatch See Detail Blood Bank Wristband ID Yes 12/31/24 01/01/25 21:48 05:47 WBC 11.2 H RBC 2.48 L Hgb 7.1 L D Hct 23.0 L MCV 93 MCH 28.6 MCHC 30.9 L RDW Std Deviation 65.6 H Plt Count 231 D Neut % (Auto) 86 H Lymph % (Auto) 6 L Bay % (Auto) 3 Eos % (Auto) 5 Baso % (Auto) 0 Neut # (Auto) 9.6 H Lymph # (Auto) 0.6 L Bay # (Auto) 0.4 Eos # (Auto) 0.5 Baso # (Auto) 0.0 Immature Gran # (Auto) 0.08 H Absolute Nucleated RBC 0.02 H Immature Gran % 1 H Nucleated RBC % 0 VBG pH 7.38 VBG pCO2 31 L VBG pO2 40 VBG O2 Sat (Gretel) 72 L VBG Base Excess -6 L Sodium 146 H 146 H Potassium 4.5 4.0 D Chloride 114 H 113 H Carbon Dioxide 17.9 L 17.6 L Anion Gap 14 15 BUN 45 H 37 H Creatinine 2.2 H 2.2 H Estim Creat Clear Calc 31.4 L 35.3 L eGFR 33 L 33 L BUN/Creatinine Ratio 20 17 Glucose 98 104 Calculated Osmolality 302 H 299 H Lactic Acid Calcium 7.9 L 8.5 Corrected Calcium 9.3 Phosphorus 4.7 Magnesium 1.3 L Total Bilirubin 0.6 AST 37 H ALT 26 Alkaline Phosphatase 106 D Total Protein 5.5 L Albumin 3.0 L Globulin 2.5 Albumin/Globulin Ratio 1.2 Beta-Hydroxybutyrate/Acetoacetate Blood Type Antibody Screen Crossmatch Blood Bank Wristband ID ABG Interpretation ABG results: 12/31/24 21:48 VBG pH 7.38 VBG pCO2 31 L VBG pO2 40 VBG Base Excess -6 L Quality Measures Quality Measures none Assessment & Plan Assessment Current Active Medications: Generic Name Dose Route Start Last Admin Trade Name Freq PRN Reason Stop Dose Admin Acetaminophen 650 mg 12/31/24 09:59 Acetaminophen 325 Mg Tablet PO 01/30/25 09:58 Q6H PRN Fever >100.4 and/or pain Atorvastatin Calcium 40 mg 01/01/25 21:00 Atorvastatin Calcium 20 Mg Tablet PO 01/31/25 20:59 HS HANNAH Cefepime HCl 1 gm/ Sodium 50 mls @ 100 mls/hr 12/31/24 11:15 01/01/25 09:09 Chloride IV 01/07/25 11:14 Not Given QDAY HANNAH Amiodarone HCl/Dextrose 360 mg in 200 mls @ 16.667 mls/hr 12/31/24 17:57 12/31/24 22:05 Nexterone Ivpb IV 01/01/25 17:56 16.667 mls/hr .Q12H HANNAH Administration Dextrose/Sodium Chloride 1,000 mls @ 85 mls/hr 01/01/25 08:00 01/01/25 07:59 D5-1/2ns IV 01/01/25 19:45 85 mls/hr .[id number] HANNAH Administration Vancomycin/Sodium Chloride 200 mls @ 120 mls/hr 01/01/25 10:00 01/01/25 09:10 Vancomycin/Ns 1 Gm Ivpb IV 01/08/25 09:59 Not Given Q24H HANNAH Multivitamins 1 tab 01/01/25 09:00 01/01/25 09:09 Multivitamins Tablet PO 01/31/25 08:59 Not Given QDAY HANNAH Ondansetron HCl 4 mg 12/31/24 09:59 Ondansetron Inj 2 Mg/Ml Inj 2 Ml IVP 01/30/25 09:58 Q6H PRN NAUSEA OR VOMITING Protocol Pantoprazole Sodium 40 mg 12/31/24 14:30 01/01/25 09:09 Pantoprazole Inj 40 Mg Vial IVP 01/30/25 14:29 Not Given BID HANNAH Pharmacy Consult 1 each 12/31/24 10:40 Vancomycin Pharmacy To Dose 1 Each Each IV 01/30/25 10:39 QDAY PRN PROTOCOL Sennosides 1 tab 12/31/24 09:59 Senna Tablet PO 01/30/25 09:58 QDAY PRN constipation Protocol Zinc Sulfate 220 mg 01/01/25 09:00 01/01/25 09:10 Zinc Sulfate 220 Mg Capsule PO 01/31/25 08:59 Not Given QDAY HANNAH Plan Agustin Schrader 64M pmhx significant for A-fib on Eliquis, CAD s/p multiple stents on Plavix, CVA wheelchair bound, CKD stage IIIb, Castorena's esophagus, hx of UGIB and esophageal ulcers, chronic osteomyelitis of the T11-T12 spine s/p debridement and currently on oral abx, who presented to [facility] ED on 12/31 from SNF due to altered mental status, oral bleeding and atrial fibrillation RVR. #Encephalopathy, metabolic vs infectious #UTI #Lactic acidosis #Starvation ketosis Presented with 1-2 days of AMS at [facility], per alert and conversional two days ago, however endorses decreased PO intake. Previously presented on 12/15 for altered mental status secondary to urinary retention, however in ED, Tinoco catheter in place. Bicarb 16.9, lactic acid 2.7->1.8, BHB 1.3->1.1. UA turbid, 1+ protein, 1+ ketone, 3+ blood, +LE, 141 RBC, 456 WBC, yeast present. s/p 2L NS total boluses in ED 01/01 KUB: mild small bowel ileus Ddx: sepsis 2/2 UTI vs starvation ketosis 2/2 poor PO intake Plan: - Vancomycin and cefepime (12/31- - D5W 03/09 NS at 85 cc/hr for starvation ketosis while NPO and mild hypernatremia - Avoid sedating agents - F/u UCx #Acute post hemorrhagic anemia #Upper GIB #Hematemasis #Hx of esophageal ulcers #Castorena's esophagus Presented with at least one episode of hematemasis, dried crusted blood on lips. Unknown how many episodes occurred. Hgb 9.3, increased from last admission. No history of cirrhosis per imaging. 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 Home medications include atorvastatin 40 mg daily, Eliquis 5 mg twice daily, metoprolol tartrate 100 mg twice daily, losartan 25 mg daily. s/p initiation of dilt drip in ED, however SBP 79 and transitioned to amio drip. Plan: - Hold home metoprolol tartrate 100 mg BID and losartan iso soft BP - Amiodarone drip, plan to transition to PO following - Hold Eliquis and Plavix iso hematemasis - Home atorvastatin 40 mg qhs - Cardiology consulted, recs appreciated #ARIA on CKDIIIb #Hx of Enterococcus UTI On admission, creatinine 2.2, BL 1.4-1.5. Likely 2/2 UTI vs lactic acidosis vs dehydration/poor p.o. intake. Renal US: moderate scarring of R kidney, L not visualized Plan: - Gentle IVF as above - Renally dose and avoid nephrotoxic medications #Chronic osteomyelitis Longstanding history of stage IV ulcer at T11-T12 with history of debridement and on long-term antibiotics. On previous admission on 12/15, discharged with 8-week course of p.o. antibiotics of doxycycline and levofloxacin as patient pulled the PICC line. Plan: - Abx as above - Wound care consulted Hospital management: Lines: PIV Diet: NPO Bowel: Senna prn GI prophylaxis: IV pantoprazole 40 mg BID DVT prophylaxis: SCDs iso GIB Disposition: tele, amio drip, IV abx, EGD CODE STATUS: FULL CODE Plan of care discussed with attending Dr. Bellamy, and PGY-2 Dr. Ness. Yohana Torres DO PGY-1 Internal Medicine Attending Provider Attestation/Addendum Pearl, Suzanna Bellamy DO, attest that I was physically present for the umanzor portions of the service and evaluated the patient with the resident and I reviewed and discussed the case with the resident and agree with the resident's findings and plans of care as documented above Patient seen and evaluated this AM. Patient remains at baseline mental status and attempting to remove his mittens. Unable to obtain IV access,which is why patient was unable to have EGD done yesterday. Will order IR to place central line. Patient had previously removed central line for his abx on last admission and transitioned to oral abx. Will transfuse 1 unit of PRBCs as Hgb continues to downtrend. however, no further episodes of bloody emesis. He continues to have blood encrusted over his lips. Otherwise, remains hemodynamically stable.
[2025-01-01] MEDS: AMIODARONE 360 MG IVPB 360 MG/200 ML BAG 16.667 MG IV (11:43)
--- NOTE | 2025-01-01 12:18 | ESCONSULT_ITS ---
<Statement entered by Tl Trejo MD - 01/06/25 12:12> I personally examined evaluated this patient with resident physician PGY 2 Dr. Giuliano GIFFORD patient is admitted to hospital with GI bleeding and atrial fibrillation now rate is controlled well anticoagulation was withheld because of active bleeding. A-fib reasonably controlled well not complaining of chest pain shortness of breath he also has enteral mental status and multiple medical issues including sepsis. I was personally present during evaluation and examination of the patient and formulated the treatment plan and recommendation as documented by Dr. Giuliano GIFFORD will continue to monitor the patient closely after the endoscopy is completed if there is no contraindication to resume anticoagulation. HPI Data of Consult Requesting Physician: Suzanna Bellamy DO Admitting Provider: Suzanna Bellamy DO Attending Provider: Suzanna Bellamy DO Primary Care Provider: Christine Kay MD Consult Narrative History of present illness: Agustin Schrader is a 64-year-old male with a past medical history of CAD status post stents on Plavix, A-fib on Eliquis, CVA in 2023, UGIB secondary to esophageal ulcers, Castorena's esophagus, and chronic osteomyelitis status post spinal surgery in [place] complicated by dehiscence who presents from SNF for acute encephalopathy. Upon evaluation, patient is fatigued and mentation waxes and wanes (baseline A&Ox2) in unable to provide accurate history so obtained from chart review. was at bedside and apparently patient was at his baseline two days prior to admission though noted to have decreased PO intake. Otherwise, limited history can be obtained and other than encephalopathy patient was noted to have bright red blood in oral cavity and A-fib with RVR but was hemodynamically stable in the field. In the ED, initial vitals significant for pulse 148, BP 99/67, and saturating well on room air. Initial EKG revealed A-fib with pulse of 123 and patient was started on diltiazem drip but was eventually discontinued due to lower blood pressures and subsequently started on amiodarone drip. Labs showed hemoglobin 9.3, mild leukocytosis of 11.2, lactate 2.7, BHB 1.3, HCO3 16.9, Cr 2.2 (baseline 1.5), UA with 3+ blood, 1+ ketones, 141 RBC, 456 WBC, [address] squamous cells[address] CXR and CT head negative for acute changes, renal ultrasound showed moderate right renal scar formation. Cardiology consulted for A-fib with RVR on anticoagulation given presentation of GI bleed. PMHx: CAD, a-fib, esophageal ulcers, Castorena's, CVA, CKD SHx: resides at [facility]; no recent alcohol, cigarette, or illicit drug use PSHx: spinal surgery/debridement, amputated right third digit, cerebral thrombectomy Allergies: ampicillin, sulfa drugs, hydrocodone, bee stings, collagen cc:: cc: Suzanna Bellamy DO Review of Systems Review of Systems ROS Unobtainable: unobtainable due to mental status Exam Vital Signs Temp Pulse Resp BP Pulse Ox O2 Del Method O2 Flow Rate 96.7 F L 101 H 14 125/72 100 Room Air 3 01/01/25 08:00 01/01/25 11:43 01/01/25 08:00 01/01/25 11:43 01/01/25 08:00 01/01/25 08:00 12/31/24 18:00 Narrative Exam General: chronically ill appearing, mentation waxes and wanes, no acute distress HEENT: bright red blood on lips, NC/AT, mucous membranes moist, bilateral sclera anicteric Cardiovascular: irregular rhythm, tachycardic, S1/S2 present, no murmurs appreciated Pulmonary: clear to auscultation bilaterally, no rales/rhonchi/wheezes Abdominal: soft, non-tender, non-distended, no rebound/guarding, normal bowel sounds present Musculoskeletal: mittens placed, normal ROM Skin: warm and dry, intact, no rashes Results Labs 01/01/25 05:47 01/01/25 05:47 Labs: Short CBC 01/01/25 Range/Units 05:47 WBC 11.2 H (3.8-10.6) Thou/mm3 Hgb 7.1 L D (13.5-16.0) g/dL Hct 23.0 L (41.0-53.0) % Plt Count 231 D (140-440) Thou/mm3 BMP 12/31/24 12/31/24 01/01/25 19:29 21:48 05:47 Sodium 143 146 H 146 H Potassium 4.4 D 4.5 4.0 D Chloride 112 H 114 H 113 H Carbon Dioxide 16.1 L 17.9 L 17.6 L BUN 35 H 45 H 37 H Creatinine 2.2 H 2.2 H 2.2 H Glucose 84 98 104 Calcium 8.5 7.9 L 8.5 Liver Function 12/31/24 01/01/25 Range/Units 19:29 05:47 Total Bilirubin 0.6 (0.3-1.2) mg/dL AST 37 H (0-34) U/L ALT 26 (10-49) U/L Alkaline Phosphatase 106 D (46-116) U/L Albumin 2.9 L D 3.0 L (3.4-4.8) gm/dL ABG Interpretation ABG results: 12/31/24 21:48 VBG pH 7.38 VBG pCO2 31 L VBG pO2 40 VBG Base Excess -6 L Quality Measures Quality Measures none Medications Home Medications and Allergies Home Medications ?Medication ?Instructions ?Recorded ?Confirmed ?Type clopidogrel 75 mg tablet 75 mg PO QDAY 10/20/2301/01 History isosorbide mononitrate 30 mg 60 mg PO QDAY 10/20/23 History tablet,extended release 24 hr acetaminophen 325 mg tablet 650 mg PO Q4H PRN pain 01/01/25 History atorvastatin 40 mg tablet 40 mg PO HS 01/01/25 5 History Allergies Allergy/AdvReac Type Severity Reaction Status Date / Time bee pollen Allergy Severe Anaphylaxis Verified 12/15/24 13:39 Sulfa (Sulfonamide Allergy Intermediate Swelling Verified 12/15/24 13:39 Antibiotics) of Lip/Tongue/Throat ampicillin Allergy Unknown Hives Verified 12/15/24 13:39 hydrocodone AdvReac Unknown Nausea Verified 12/15/24 13:39 COLLAGEN Allergy Intermediate Rash Uncoded 12/15/24 13:39 Visit Medications Acetaminophen (Acetaminophen 325 Mg Tablet) 650 mg PO Q6H PRN PRN Reason: Fever >100.4 and/or pain Stop: 01/30/25 09:58 Atorvastatin Calcium (Atorvastatin Calcium 20 Mg Tablet) 40 mg PO HS HANNAH Stop: 01/31/25 20:59 Cefepime HCl 1 gm/ Sodium (Chloride) 50 mls @ 100 mls/hr IV QDAY HANNAH Stop: 01/07/25 11:14 Last Admin: 01/01/25 09:09 Dose: Not Given Amiodarone HCl/Dextrose (Nexterone Ivpb) 360 mg in 200 mls @ 16.667 mls/hr IV .Q12H [facility] Stop: 01/01/25 17:56 Last Admin: 01/01/25 11:43 Dose: 16.667 mls/hr Dextrose/Sodium Chloride (D5-1/2ns) 1,000 mls @ 85 mls/hr IV .[id number] [facility] Stop: 01/01/25 19:45 Last Admin: 01/01/25 07:59 Dose: 85 mls/hr Vancomycin/Sodium Chloride (Vancomycin/Ns 1 Gm Ivpb) 200 mls @ 120 mls/hr IV Q24H [facility] Stop: 01/08/25 09:59 Last Admin: 01/01/25 09:10 Dose: Not Given Multivitamins (Multivitamins Tablet) 1 tab PO QDAY [facility] Stop: 01/31/25 08:59 Last Admin: 01/01/25 09:09 Dose: Not Given Ondansetron HCl (Ondansetron Inj 2 Mg/Ml Inj 2 Ml) 4 mg IVP Q6H PRN; Protocol PRN Reason: NAUSEA OR VOMITING Stop: 01/30/25 09:58 Pantoprazole Sodium (Pantoprazole Inj 40 Mg Vial) 40 mg IVP BID [facility] Stop: 01/30/25 14:29 Last Admin: 01/01/25 09:09 Dose: Not Given Pharmacy Consult (Vancomycin Pharmacy To Dose 1 Each Each) 1 each IV QDAY PRN PRN Reason: PROTOCOL Stop: 01/30/25 10:39 Sennosides (Senna Tablet) 1 tab PO QDAY PRN; Protocol PRN Reason: constipation Stop: 01/30/25 09:58 Zinc Sulfate (Zinc Sulfate 220 Mg Capsule) 220 mg PO QDAY [facility] Stop: 01/31/25 08:59 Last Admin: 01/01/25 09:10 Dose: Not Given Discontinued Medications Diltiazem HCl (Diltiazem Inj 5 Mg/Ml Vial 5 Ml) 10 mg IV X1 ONE Stop: 12/31/24 03:22 Last Admin: 12/31/24 04:32 Dose: Not Given Diltiazem HCl (Diltiazem Inj 5 Mg/Ml Vial 5 Ml) 5 mg IV X1 ONE Stop: 12/31/24 04:39 Last Admin: 12/31/24 04:55 Dose: 5 mg Diltiazem HCl (Diltiazem Inj 5 Mg/Ml Vial 5 Ml) 5 mg IV X1 ONE Stop: 12/31/24 05:34 Last Admin: 12/31/24 05:39 Dose: 5 mg Fentanyl Citrate (Fentanyl Cit Inj 50 Mcg/Ml Amp 2ml) 50 mcg IVP X1 ONE Stop: 12/31/24 03:41 Last Admin: 12/31/24 03:50 Dose: 50 mcg Fentanyl Citrate (Fentanyl Cit Inj 50 Mcg/Ml Amp 2ml) 25 mcg IVP Q15MIN PRN PRN Reason: SEDATION Sodium Chloride (Ns) 500 mls @ 500 mls/hr IV .Q1H ONE Stop: 12/31/24 05:39 Last Infusion: 12/31/24 05:54 Dose: Infused Diltiazem/Sodium Chloride (Diltiazem In Ns 100 Mg) 100 mg in 100 mls @ 5 mls/hr IV .Q20H [facility] Stop: 01/30/25 05:33 Last Infusion: 12/31/24 11:46 Dose: 0 mg/hr, 0 mls/hr Ceftriaxone Sodium/Dextrose (Rocephin/D5w 1gm Iv Premix) 1 gm in 50 mls @ 100 mls/hr IV QDAY [facility]ANNA[facility] Stop: 01/07/25 10:39 Last Admin: 12/31/24 14:35 Dose: Not Given Vancomycin/Sodium Chloride (Vancomycin/Ns 1 Gm Ivpb) 200 mls @ 120 mls/hr IV X1 ONE Stop: 12/31/24 12:24 Last Infusion: 12/31/24 13:14 Dose: Infused Sodium Chloride (Ns) 1,000 mls @ 999 mls/hr IV .Q1H1M ONE Stop: 12/31/24 12:09 Last Infusion: 12/31/24 14:14 Dose: Infused Sodium Chloride (Ns) 500 mls @ 999 mls/hr IV .Q31M ONE Stop: 12/31/24 11:40 Last Infusion: 12/31/24 11:40 Dose: Infused Amiodarone HCl/Dextrose (Nexterone Ivpb) 150 mg in 100 mls @ 600 mls/hr IV .Q10M ONE Stop: 12/31/24 11:56 Last Infusion: 12/31/24 14:35 Dose: Infused Amiodarone HCl/Dextrose (Nexterone Ivpb) 360 mg in 200 mls @ 33.333 mls/hr IV .Q6H ONE Stop: 12/31/24 17:56 Last Admin: 12/31/24 13:49 Dose: 33.333 mls/hr Dextrose/Sodium Chloride (D5-1/2ns) 1,000 mls @ 75 mls/hr IV .[id number] [facility] Stop: 01/01/25 03:49 Dextrose (D5w) 1,000 mls @ 75 mls/hr IV .[id number] [facility] Stop: 01/01/25 03:49 Dextrose/Sodium Chloride (D5-Ns) 1,000 mls @ 80 mls/hr IV .[id number] [facility] Stop: 01/01/25 19:29 Last Admin: 01/01/25 07:34 Dose: 80 mls/hr Magnesium Sulfate (Magnesium Sulfate Ivpb) 2 gm in 50 mls @ 25 mls/hr IV X1 ONE Stop: 01/01/25 09:31 Last Admin: 01/01/25 07:59 Dose: 25 mls/hr Ondansetron HCl (Ondansetron Inj 2 Mg/Ml Inj 2 Ml) 4 mg IVP X1 ONE; Protocol Stop: 12/31/24 03:41 Last Admin: 12/31/24 03:49 Dose: 4 mg Thiamine HCl (Thiamine Inj 100 Mg/Ml Vial 2 Ml) 100 mg IVP X1 ONE Stop: 01/01/25 11:43 Assessment & Plan Plan Agustin Schrader is a 64-year-old male with a past medical history of CAD status post stents on Plavix, A-fib on Eliquis, CVA in 2023, UGIB secondary to esophageal ulcers, Castorena's esophagus, and chronic osteomyelitis status post spinal surgery in [place] complicated by dehiscence who is admitted for acute encephalopathy and cardiology consulted for A-fib with RVR. #A-fib with RVR on Eliquis Presents with acute encephalopathy and bright red blood in oral cavity. Initial EKG showed pulse of 123 and telemetry reviewed today and showed rate between 70s and 80s. However, initial hemoglobin of 9.3 that downtrended to 7.1. ? Agree with amiodarone drip, scheduled to finish this evening ? Currently NPO and pending endoscopy so can continue through the night ? After endoscopy, resume home metoprolol tartrate 100 mg twice daily ? Hold eliquis given GIB and will follow GI recommendations on whether to resume afterwards #CAD status post multiple stents Follows up with Dr. Yadav outpatient. Last stent placed in 2022, so plavix is not needed. ? Home atorvastatin 40 mg if can swallow #GI bleed #Acute blood loss anemia ? Recommend to keep hemoglobin > 8 given cardiac history ? Limited IV access at this time so plans for PICC line placement #Acute encephalopathy #Urinary tract infection #Lactic acidosis #Starvation ketosis #History of esophageal ulcers #Castorena's esophagus #CVA 2023 #ARIA on CKD #Chronic osteomyelitis ? Continue management per primary team ----- Plan discussed with attending physician Dr. Neil Gifford MD PGY-2 Internal Medicine
[2025-01-01] MEDS: THIAMINE INJ 100 MG/ML VIAL 2 ML IVP (12:26)
--- NOTE | 2025-01-01 12:48 | PC.SS ---
SS spoke to patient's , Sheila, regarding patient history. 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 states patient is to return upon discharge. Patient was admitted to us for altered mental status. remains alt medical decision maker: , Sheila,
--- NOTE | 2025-01-01 13:23 | PC.NURSE ---
Unable to do nurse swallow screen at the moment. patient asleep at this time. pt early was restless bitin at [facility]. Will follow up
--- NOTE | 2025-01-01 17:32 | PC.NURSE ---
Unable to transfuse blood. Dr Ness made aware of patient's procedure for tunneled central line moved to tomorrow.
--- NOTE | 2025-01-01 18:14 | PC.NURSE ---
Notified Dr. chance. Patient did not pass nurse swallow screen. Pt unable to stay awake and or does not understand.
--- NOTE | 2025-01-01 21:14 | ESPR_ITS ---
Documentation for date of: 01/01/25 Subjective Subjective Interval history: Considerable drop in hemoglobin hematocrit to 7.1 and 20.0 from 9.3 and 28.4 Exam Vital Signs Temp Pulse Resp BP Pulse Ox O2 Del Method O2 Flow Rate 96.8 F 68 18 122/66 100 Room Air 3 01/01/25 16:00 01/01/25 16:28 01/01/25 16:28 01/01/25 16:00 01/01/25 16:00 01/01/25 16:00 12/31/24 18:00 Constitutional Comments: Chronically ill-appearing Routine Respiratory Exam Comments: Soft nontender Objective Labs 01/01/25 05:47 01/01/25 05:47 Labs: Laboratory Results - last 24 hr 12/31/24 12/31/24 01/01/25 14:58 21:48 05:47 WBC 11.2 H RBC 2.48 L Hgb 7.1 L D Hct 23.0 L MCV 93 MCH 28.6 MCHC 30.9 L RDW Std Deviation 65.6 H Plt Count 231 D Neut % (Auto) 86 H Lymph % (Auto) 6 L [place] % (Auto) 3 Eos % (Auto) 5 Baso % (Auto) 0 Neut # (Auto) 9.6 H Lymph # (Auto) 0.6 L [place] # (Auto) 0.4 Eos # (Auto) 0.5 Baso # (Auto) 0.0 Immature Gran # (Auto) 0.08 H Absolute Nucleated RBC 0.02 H Immature Gran % 1 H Nucleated RBC % 0 VBG pH 7.38 VBG pCO2 31 L VBG pO2 40 VBG O2 Sat (Gretel) 72 L VBG Base Excess -6 L Sodium 146 H 146 H Potassium 4.5 4.0 D Chloride 114 H 113 H Carbon Dioxide 17.9 L 17.6 L Anion Gap 14 15 BUN 45 H 37 H Creatinine 2.2 H 2.2 H Estim Creat Clear Calc 31.4 L 35.3 L eGFR 33 L 33 L BUN/Creatinine Ratio 20 17 Glucose 98 104 Calculated Osmolality 302 H 299 H Calcium 7.9 L 8.5 Corrected Calcium 9.3 Phosphorus 4.7 Magnesium 1.3 L Total Bilirubin 0.6 AST 37 H ALT 26 Alkaline Phosphatase 106 D Total Protein 5.5 L Albumin 3.0 L Globulin 2.5 Albumin/Globulin Ratio 1.2 Blood Type O Positive Antibody Screen NEGATIVE Crossmatch See Detail Blood Bank Wristband ID Yes Impressions Impression: Hematemesis Anemia blood loss Still no IV They will get an access in the morning probably central line and then I will perform the upper endoscopy ABG Interpretation ABG results: 12/31/24 21:48 VBG pH 7.38 VBG pCO2 31 L VBG pO2 40 VBG Base Excess -6 L Assessment & Plan A&P Narrative # Hematemesis most likely bleeding from the esophageal ulcerations as documented on the previous endoscopies Plan Consent obtained for fiberoptic esophagogastroduodenoscopy with possible biopsy possible therapeutic intervention under intravenous moderate sedation from his whom I met her in the room We will proceed with the procedure Patient has been n.p.o. Continue IV Protonix Continue serial CBCs and transfuse as necessary Other medical problems include Coronary artery status post multiple stent placement on Plavix Chronic atrial fibrillation with history of RVR on Eliquis CVA CKD Castorena's esophagus Thank you very much for the opportunity to participate in the care of this patient Time Spent With Patient Time: Total time spent is greater than 50% in coordination of care (as documented) at patient's floor/unit and/or counseling patient:
--- NOTE | 2025-01-01 22:35 | PC.NURSE ---
MD Claros came and asked him regarding EGD per MD Claros he will do it in AM.
[2025-01-02] VITALS (24 sets, daily range): BP systolic 91–150; BP diastolic 54–96; PULSE 60–98; RESP 9–100; TEMP 35.9–36.5; O2SAT 97–100; BMI 28.9
--- NOTE | 2025-01-02 | XR_ITS ---
Examination: Central line placement, triple lumen catheter. Ultrasound-guided needle placement right internal jugular vein. Fluoroscopy AP Chest, portable single view Exam date and time: January 02, 2025, 1019 hours INDICATIONS: Need for long-term intravenous antibiotic therapy for osteomyelitis. Informed consent provided Technique: A timeout was completed, verifying correct patient, procedure, site, positioning, and special equipment if applicable The patient was placed in a dependent position appropriate for central line placement based on the vein to be cannulated. The patient's right neck was prepped and draped in sterile fashion. Maximum Sterile Barrier Technique used including cap, mask, sterile gown, sterile gloves, and sterile full body drape. If ultrasound technique used: sterile gel and sterile probe covers. Hand Hygiene performed using proper scrub, soap and water, or alcohol-based hand rub. Site right portable apparatus utilized to confirm patency of the right internal jugular vein Utilizing ultrasonographic guidance 6 S1 21-gauge needle puncture into the right internal jugular vein Ultrasound images were recorded and stored. Successful micropuncture with a 21-gauge needle was performed. 0.18 wire guide was introduced into the IVC under fluoroscopic guidance. The wires is then exchanged for a 0.25 J-wire guide placed in the vena cava. The triple lumen catheter dilator is introduced, followed by the catheter in the SVC in proper position under fluoroscopic guidance. Successful aspiration of blood and flushing with heparinized saline is then performed in the 3 venous limbs. The catheter is sutured in place to the skin and a sterile dressing applied. Perfusion to the extremity distal to the point of catheter insertion was checked and found to be adequate The attending radiologist was present for the entire procedure Estimated blood loss 1 cc. Findings: Under fluoroscopy, the tip of the catheter is in good position in the vena cava. Portable chest x-ray, post line placement, as ordered. Impression: Successful ultrasound-guided needle placement right internal jugular vein. Successful placement of triple lumen catheter central line, percutaneous. Fluoroscopy 0.1-minute radiation dose 2.05 mGy 1 spot fluoroscopic chest film. AP portable chest completion procedure demonstrates satisfactory position central line tip SVC. May use central line.
[2025-01-02 05:58] LABS: Basophils # (Auto) 0.0 Thou/mm3 (0.0-0.2); Basophils % (Auto) 0 % (0-2.5); Eosinophils # (Auto) 0.6 Thou/mm3 (0.0-0.5); Eosinophils % (Auto) 8 % (0-10); Hematocrit 29.6 % (41.0-53.0); Hemoglobin 9.4 g/dL (13.5-16.0); Immature Granulocytes Auto 0.04 Thou/mm3 (0.00-0.00); Lymphocytes # (Auto) 0.9 Thou/mm3 (1.0-4.8); Lymphocytes % (Auto) 11 % (10-50); Mean Corpuscular HGB Conc 31.8 g/dl (31.0-37.0); Mean Corpuscular Hemoglobin 29.5 pg (25.0-35.0); Mean Corpuscular Volume 93 fL (80-100); Monocytes # (Auto) 0.5 Thou/mm3 (0.0-0.8); Monocytes % (Auto) 7 % (0-12); Neutrophils # (Auto) 5.6 Thou/mm3 (1.8-7.7); Neutrophils % (Auto) 73 % (37-80); Nucleated Red Blood Cell # 0.00 Thou/mm3 (0.00-0.00); Nucleated Red Blood Cell % 0 /100 WBC (0); Platelet Count 215 Thou/mm3 (140-440); RDW Standard Deviation 61.2 fL (35.1-43.9); Red Blood Count 3.19 Miln/mm3 (4.50-5.90); White Blood Count 7.6 Thou/mm3 (3.8-10.6)
[2025-01-02 06:07] LABS: INR 1.6 (0.9-1.3); Partial Thromboplastin Time 39.0 Seconds (22.0-36.0); Prothrombin Time 16.7 Seconds (9.0-12.2)
[2025-01-02 06:26] LABS: Alanine Aminotransferase 26 U/L (10-49); Albumin, Serum 3.1 gm/dL (3.4-4.8); Albumin/Globulin Ratio 1.2 (1.2-2.2); Alkaline Phosphatase 108 U/L (46-116); Anion Gap 15 (7-16); Aspartate Amino Transferase 39 U/L (0-34); BUN/Creatinine Ratio 17 Ratio (12-20); Bilirubin,Total 0.7 mg/dL (0.3-1.2); Blood Urea Nitrogen 33 mg/dL (9-23); Calcium 8.9 mg/dL (8.3-10.6); Calcium (Corrected) 9.6 mg/dL (8.5-10.1); Carbon Dioxide 18.3 mMol/L (20.0-31.0); Chloride 116 mMol/L (98-107); Creatinine (Component) 2.0 mg/dL (0.6-1.3); Estimated Creatinine Clearance 38.9 mL/min (>60); Globulin 2.6 gm/dL (2.3-3.5); Glucose 84 mg/dL (74-106); Magnesium 1.4 mg/dL (1.6-2.6); Osmolality,Calculated 302 (275-295); Phosphorous 4.3 mg/dL (2.4-5.1); Potassium 4.6 mMol/L (3.4-5.1); Sodium 149 mMol/L (136-145); Total Protein 5.7 gm/dL (5.7-8.2); eGFR 37 See Note
[2025-01-02] MEDS: CEFEPIME INJ 1 GM in SODIUM CHLORIDE 0.9% (Popper) 50 ML IV (09:06)
[2025-01-02 09:36] LABS: Sodium 147 mMol/L (136-145)
[2025-01-02] MEDS: Magnesium Sulfate 4 GM Ivpb 4 GM/50 ML BAG IV (09:38)
[2025-01-02] MEDS: DEXTROSE 5%-WATER 1,000 ML 85 ML IV (09:39)
--- NOTE | 2025-01-02 09:54 | PD.RESPRO ---
Documentation for date of: 01/02/25 Senior resident attestation: Patient evaluated and examined at the bedside, plan of care discussed with rest of the team including my attending physician, except as noted. Patient is a 64-year-old male with a past medical history of coronary artery disease on Plavix, A-fib on Eliquis, history of Castorena's esophagitis and history of upper GI bleed, who manage in the ER for altered mental status, found to have dried up blood around his and tachycardia. Patient was admitted for A-fib RVR, hematemesis/upper GI bleed and acute encephalopathy. Also found to have UTI and high anion gap metabolic acidosis. Patient had poor IV access, unable to obtain baseline, requiring blood transfusion, due to acute blood loss anemia, central line was placed by IR for IV access. Patient is pending endoscopy for evaluation of GI bleed, currently continued on IV Protonix. Cardiology was consulted for A-fib with RVR, Eliquis continues to be held in the setting of GI bleed. Quresh PGY3 Subjective Subjective Interval history: Overnight, IV access acquired and transfuse 1 PRBC with post transfusion H&H 9.4. Patient seen examined at bedside. Patient is oriented x 1 able to follow commands. Denies any bodily pain. Vitals labs reviewed. SBP 120-140. Telemetry reviewed, atrial fibrillation with controlled rate. WBC decreased now 7.6, hemoglobin 9.4, sodium 149, chloride 116, bicarb 18.3 increased from 17.6, BUN stable elevated 33, creatinine mildly down trended to 2.0 from 2.2. Magnesium 1.4 repleted with 4 g. EGD planned for today as now patient has IV access. Continue cefepime and vancomycin follow-up urine culture. Started D5W 85 cc an hour due to hypernatremia and n.p.o. status. Central line to be placed today given patient only has one IV access at this time. Exam Vital Signs Temp Pulse Resp BP Pulse Ox O2 Del Method O2 Flow Rate 96.9 F 76 14 108/65 100 Room Air 3 01/02/25 08:00 01/02/25 08:00 01/02/25 08:00 01/02/25 08:00 01/02/25 08:00 01/02/25 08:00 01/02/25 00:00 Narrative Exam GENERAL: alert and oriented x1 to name, no acute distress, crusted and red blood on lower lip HEENT: mucous membranes dry, bilateral sclera anicteric CARDIOVASCULAR: regular rate, irregular rhythm, S1/S2 present, no murmurs appreciated PULMONARY: clear to auscultation bilaterally, no rales/rhonchi/wheezes ABDOMINAL: soft, non-tender, non-distended, no rebound/guarding, bowel sounds present EXTREMITIES: no peripheral edema SKIN: warm and dry, no rashes, +stage IV pressure ulcer at lower thoracic region with bone showing, non purulent and non erythematous. NEURO: CN II-XII grossly intact, following commands Objective Labs 01/03/25 05:20 01/03/25 05:20 Labs: Laboratory Results - last 24 hr 12/31/24 01/02/25 01/02/25 14:58 04:55 08:55 WBC 7.6 RBC 3.19 L Hgb 9.4 L D Hct 29.6 L MCV 93 MCH 29.5 MCHC 31.8 RDW Std Deviation 61.2 H Plt Count 215 Neut % (Auto) 73 Lymph % (Auto) 11 [place] % (Auto) 7 Eos % (Auto) 8 Baso % (Auto) 0 Neut # (Auto) 5.6 Lymph # (Auto) 0.[address] [place] # (Auto) 0.5 Eos # (Auto) 0.6 H Baso # (Auto) 0.0 Immature Gran # (Auto) 0.04 H Absolute Nucleated RBC 0.00 Immature Gran % 1 H Nucleated RBC % 0 PT 16.7 H D INR 1.6 H APTT 39.0 H Sodium 149 H 147 H Potassium 4.6 D Chloride 116 H Carbon Dioxide 18.3 L Anion Gap 15 BUN 33 H Creatinine 2.0 H Estim Creat Clear Calc 38.9 L eGFR 37 L BUN/Creatinine Ratio 17 Glucose 84 Calculated Osmolality 302 H Calcium 8.9 Corrected Calcium 9.6 Phosphorus 4.3 Magnesium 1.4 L Total Bilirubin 0.7 AST 39 H ALT 26 Alkaline Phosphatase 108 Total Protein 5.7 Albumin 3.1 L Globulin 2.6 Albumin/Globulin Ratio 1.2 Blood Type O Positive Antibody Screen NEGATIVE Crossmatch See Detail Blood Bank Wristband ID Yes ABG Interpretation ABG results: 12/31/24 21:48 VBG pH 7.38 VBG pCO2 31 L VBG pO2 40 VBG Base Excess -6 L Quality Measures Quality Measures none Assessment & Plan Assessment Current Active Medications: Generic Name Dose Route Start Last Admin Trade Name Freq PRN Reason Stop Dose Admin Acetaminophen 650 mg 12/31/24 09:59 Acetaminophen 325 Mg Tablet PO 01/30/25 09:58 Q6H PRN Fever >100.4 and/or pain Amiodarone HCl 200 mg 01/02/25 10:00 Amiodarone Hcl 200 Mg Tablet PO 02/01/25 09:59 BID HANNAH Atorvastatin Calcium 40 mg 01/01/25 21:00 01/01/25 21:04 Atorvastatin Calcium 20 Mg Tablet PO 01/31/25 20:59 Not Given HS HANNAH Cefepime HCl 1 gm/ Sodium 50 mls @ 100 mls/hr 12/31/24 11:15 01/02/25 09:06 Chloride IV 01/07/25 11:14 100 mls/hr QDAY HANNAH Administration Vancomycin/Sodium Chloride 200 mls @ 120 mls/hr 01/01/25 10:00 01/01/25 09:10 Vancomycin/Ns 1 Gm Ivpb IV 01/08/25 09:59 Not Given Q24H HANNAH Magnesium Sulfate 4 gm in 50 mls @ 12.5 mls/hr 01/02/25 07:57 01/02/25 09:38 Magnesium Sulfate Ivpb IV 01/02/25 11:56 12.5 mls/hr X1 ONE Administration Dextrose 1,000 mls @ 85 mls/hr 01/02/25 08:00 01/02/25 09:39 D5w IV 01/02/25 19:45 85 mls/hr .[id number] HANNAH Administration Multivitamins 1 tab 01/01/25 09:00 01/02/25 09:07 Multivitamins Tablet PO 01/31/25 08:59 Not Given QDAY HANNAH Ondansetron HCl 4 mg 12/31/24 09:59 Ondansetron Inj 2 Mg/Ml Inj 2 Ml IVP 01/30/25 09:58 Q6H PRN NAUSEA OR VOMITING Protocol Pantoprazole Sodium 40 mg 12/31/24 14:30 01/02/25 09:06 Pantoprazole Inj 40 Mg Vial IVP 01/30/25 14:29 40 mg BID [facility] Administration Pharmacy Consult 1 each 12/31/24 10:40 Vancomycin Pharmacy To Dose 1 Each Each IV 01/30/25 10:39 QDAY PRN PROTOCOL Sennosides 1 tab 12/31/24 09:59 Senna Tablet PO 01/30/25 09:58 QDAY PRN constipation Protocol Zinc Sulfate 220 mg 01/01/25 09:00 01/02/25 09:07 Zinc Sulfate 220 Mg Capsule PO 01/31/25 08:59 Not Given QDAY [facility] Plan Agustin Schrader 64M pmhx significant for A-fib on Eliquis, CAD s/p multiple stents on Plavix, CVA wheelchair bound, CKD stage IIIb, Castorena's esophagus, hx of UGIB and esophageal ulcers, chronic osteomyelitis of the T11-T12 spine s/p debridement and currently on oral abx, who presented to [facility] ED on 12/31 from SNF due to altered mental status, oral bleeding and atrial fibrillation RVR. #Acute on chronic Encephalopathy, metabolic vs infectious #UTI #Lactic acidosis #Starvation ketosis Presented with 1-2 days of AMS at SNF, per alert and conversional two days ago, however endorses decreased PO intake. Previously presented on 12/15 for altered mental status secondary to urinary retention, however in ED, Tinoco catheter in place. Bicarb 16.9, lactic acid 2.7->1.8, BHB 1.3->1.1. UA turbid, 1+ protein, 1+ ketone, 3+ blood, +LE, 141 RBC, 456 WBC, yeast present. s/p 2L NS total boluses in ED 01/01 KUB: mild small bowel ileus Ddx: sepsis 2/2 UTI vs starvation ketosis 2/2 poor PO intake Plan: - Vancomycin and cefepime (12/31- - D5W at 85 cc/hr - Avoid sedating agents - F/u UCx - L[employer]ER consulted, recs appreciated - Central line to be placed today #Acute post hemorrhagic anemia s/p 1 pRBC 01/01 #Upper GIB #Hematemasis #Hx of esophageal ulcers #Castorena's esophagus Presented with at least one episode of hematemasis, dried crusted blood on lips. Unknown how many episodes occurred. Hgb 9.3, increased from last admission. No history of cirrhosis per imaging. 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 Home medications include atorvastatin 40 mg daily, Eliquis 5 mg twice daily, metoprolol tartrate 100 mg twice daily, losartan 25 mg daily. s/p initiation of dilt drip in ED, however SBP 79 and transitioned to amio drip. Plan: - Hold home metoprolol tartrate 100 mg BID and losartan iso soft BP - Amiodarone 200 mg BID once patient passes swallow study, IV amio if patient does not pass - Hold Eliquis and Plavix iso hematemasis - Home atorvastatin 40 mg qhs if patient is able to swallow - Cardiology consulted, recs appreciated: resume metoprolol following EGD #Hypernatremia #Hyperchloremia #Hypomagnesemia On 12/31, Na 146 and steadily increasing. Likely 2/2 volume depletion from dehydration vs GIB. Plan: - D5W 85cc/hr with goal 24h Na reduction by 8-10 mMol/L - F/u afternoon Na - Recheck and replete as necessary #ARIA on CKDIIIb #Hx of Enterococcus UTI On admission, creatinine 2.2, BL 1.4-1.5. Likely 2/2 UTI vs lactic acidosis vs dehydration/poor p.o. intake. Renal US: moderate scarring of R kidney, L not visualized Plan: - Gentle IVF as above - Renally dose and avoid nephrotoxic medications #Chronic osteomyelitis Longstanding history of stage IV ulcer at T11-T12 with history of debridement and on long-term antibiotics. On previous admission on 12/15, discharged with 8-week course of p.o. antibiotics of doxycycline and levofloxacin as patient pulled the PICC line. Plan: - Abx as above - Wound care consulted Hospital management: Lines: PIV Diet: NPO Bowel: Senna prn GI prophylaxis: IV pantoprazole 40 mg BID DVT prophylaxis: SCDs iso GIB Disposition: tele, EGD pending CODE STATUS: FULL CODE Plan of care discussed with attending Dr. Bellamy, and PGY-3 Dr. Paulino. Yhoana Torres DO PGY-1 Internal Medicine Attending Provider Attestation/Addendum Suzanna Kang DO, attest that I was physically present for the umanzor portions of the service and evaluated the patient with the resident and I reviewed and discussed the case with the resident and agree with the resident's findings and plans of care as documented above Patient seen and evaluated this afternoon as patient had central line placement done this morning. Patient is back at baseline mental status. is at bedside. Patient asking for soda, but is NPO for EGD today. Patient received 1 unit of pRBCs overnight. Lips are crusted with scabs as well, patient often bites his lips. Will f/u with EGD results. He is otherwise back in afib with RVR. Due to being NPO, will restart amiodarone drip. states that she had a discussion with cardiology regarding anticoagulation due to the risks of bleeding which she is understanding of.
--- NOTE | 2025-01-02 10:10 | PC.SS ---
rounding note: SS spoke to physician team indicating that patient pulled out his picc line. Patient will now attempt to get a central line. Patient is pending EGD and colonoscopy. He will d/c on p.o. medications. Updated [facility]. Possible d/c within 2-3 days.
--- NOTE | 2025-01-02 10:23 | PC.NURSE ---
consulted hospitalist Dr. Ness regarding order for tunneled central line placement, stated patient does not need tunneled central line placemement anymore since pt will not go home on antibiotics, new order placed for central line placement ( non tunneled).
[2025-01-02] MEDS: LIDOCAINE INJ PF 1% 30 ML VIAL 7 ML INFL (11:21)
[2025-01-02] MEDS: HEPARIN SOD LOCK SYR 100 UNIT/ML 500 UNIT STFIELD (11:21)
[2025-01-02] MEDS: VANCOMYCIN/NS 1 GM IVPB 200 ML IV (11:59)
--- NOTE | 2025-01-02 12:04 | PC.NURSE ---
1137 patient s/p central line insertion, report given to Leticia MACK, patient transferred back to room 266 with tele box.
--- NOTE | 2025-01-02 12:14 | ESPR_ITS ---
<Statement entered by Tl Trejo MD - 01/06/25 12:13> The patient continues to be feeling well I evaluated patient with resident physician PGY [address] Dr. Giuliano GIFFORD MD patient is doing better but required transfusion hemoglobin is stable did not have endoscopy awaiting endoscopy patient is clinically stable to have endoscopy procedure A-fib rate controlled well. Evaluated patient with resident physician and agree with treatment plan recommendation as documented and formulated by me along with resident physician Dr. GIFFORD Documentation for date of: 01/02/25 Subjective Subjective Interval history: No acute overnight events. PICC line was placed and was given 1 unit pRBC for which repeat hemoglobin increaesd from 7.1 to 9.4. However, patient removed his PICC line and since central line has been placed. Endoscopy was postponed yesterday as no IV access during evaluation yesterday but planned for later today. Regarding atrial fibrillation, if patient is NPO can resume IV amiodarone. Otherwise, can continue home metoprolol. Exam Vital Signs Temp Pulse Resp BP Pulse Ox O2 Del Method O2 Flow Rate 96.9 F 80 20 134/69 H 100 Room Air 3 01/02/25 08:00 01/02/25 11:30 01/02/25 11:30 01/02/25 11:30 01/02/25 11:30 01/02/25 11:30 01/02/25 00:00 Narrative Exam General: chronically ill appearing, mentation waxes and wanes, no acute distress HEENT: bright red blood on lips, NC/AT, mucous membranes moist, bilateral sclera anicteric Cardiovascular: irregular rhythm, tachycardic, S1/S2 present, no murmurs appreciated Pulmonary: clear to auscultation bilaterally, no rales/rhonchi/wheezes Abdominal: soft, non-tender, non-distended, no rebound/guarding, normal bowel sounds present Musculoskeletal: mittens placed, normal ROM Skin: warm and dry, intact, no rashes Objective Labs 01/02/25 04:55 01/02/25 08:55 Labs: Laboratory Results - last 24 hr 12/31/24 01/02/25 01/02/25 14:58 04:55 08:55 WBC 7.6 RBC 3.19 L Hgb 9.4 L D Hct 29.6 L MCV 93 MCH 29.5 MCHC 31.8 RDW Std Deviation 61.2 H Plt Count 215 Neut % (Auto) 73 Lymph % (Auto) 11 [place] % (Auto) 7 Eos % (Auto) 8 Baso % (Auto) 0 Neut # (Auto) 5.6 Lymph # (Auto) 0.9 L [place] # (Auto) 0.5 Eos # (Auto) 0.6 H Baso # (Auto) 0.0 Immature Gran # (Auto) 0.04 H Absolute Nucleated RBC 0.00 Immature Gran % 1 H Nucleated RBC % 0 PT 16.7 H D INR 1.6 H APTT 39.0 H Sodium 149 H 147 H Potassium 4.6 D Chloride 116 H Carbon Dioxide 18.3 L Anion Gap 15 BUN 33 H Creatinine 2.0 H Estim Creat Clear Calc 38.9 L eGFR 37 L BUN/Creatinine Ratio 17 Glucose 84 Calculated Osmolality 302 H Calcium 8.9 Corrected Calcium 9.6 Phosphorus 4.3 Magnesium 1.4 L Total Bilirubin 0.7 AST 39 H ALT 26 Alkaline Phosphatase 108 Total Protein 5.7 Albumin 3.1 L Globulin 2.6 Albumin/Globulin Ratio 1.2 Blood Type O Positive Antibody Screen NEGATIVE Crossmatch See Detail Blood Bank Wristband ID Yes ABG Interpretation ABG results: 12/31/24 21:48 VBG pH 7.38 VBG pCO2 31 L VBG pO2 40 VBG Base Excess -6 L Quality Measures Quality Measures none Assessment & Plan Assessment Current Active Medications: Generic Name Dose Route Start Last Admin Trade Name Freq PRN Reason Stop Dose Admin Acetaminophen 650 mg 12/31/24 09:59 Acetaminophen 325 Mg Tablet PO 01/30/25 09:58 Q6H PRN Fever >100.4 and/or pain Amiodarone HCl 200 mg 01/02/25 10:00 01/02/25 11:57 Amiodarone Hcl 200 Mg Tablet PO 02/01/25 09:59 Not Given BID HANNAH Atorvastatin Calcium 40 mg 01/01/25 21:00 01/01/25 21:04 Atorvastatin Calcium 20 Mg Tablet PO 01/31/25 20:59 Not Given HS HANNAH Cefepime HCl 1 gm/ Sodium 50 mls @ 100 mls/hr 12/31/24 11:15 01/02/25 09:06 Chloride IV 01/07/25 11:14 100 mls/hr QDAY HANNAH Administration Vancomycin/Sodium Chloride 200 mls @ 120 mls/hr 01/01/25 10:00 01/02/25 11:59 Vancomycin/Ns 1 Gm Ivpb IV 01/08/25 09:59 120 mls/hr Q24H HANNAH Administration Dextrose 1,000 mls @ 85 mls/hr 01/02/25 08:00 01/02/25 09:39 D5w IV 01/02/25 19:45 85 mls/hr .[id number] HANNAH Administration Multivitamins 1 tab 01/01/25 09:00 01/02/25 09:07 Multivitamins Tablet PO 01/31/25 08:59 Not Given QDAY HANNAH Ondansetron HCl 4 mg 12/31/24 09:59 Ondansetron Inj 2 Mg/Ml Inj 2 Ml IVP 01/30/25 09:58 Q6H PRN NAUSEA OR VOMITING Protocol Pantoprazole Sodium 40 mg 12/31/24 14:30 01/02/25 09:06 Pantoprazole Inj 40 Mg Vial IVP 01/30/25 14:29 40 mg BID HANNAH Administration Pharmacy Consult 1 each 12/31/24 10:40 Vancomycin Pharmacy To Dose 1 Each Each IV 01/30/25 10:39 QDAY PRN PROTOCOL Sennosides 1 tab 12/31/24 09:59 Senna Tablet PO 01/30/25 09:58 QDAY PRN constipation Protocol Zinc Sulfate 220 mg 01/01/25 09:00 01/02/25 09:07 Zinc Sulfate 220 Mg Capsule PO 01/31/25 08:59 Not Given QDAY HANNAH Plan Agustin Schrader is a 64-year-old male with a past medical history of CAD status post stents on Plavix, A-fib on Eliquis, CVA in 2023, UGIB secondary to esophageal ulcers, Castorena's esophagus, and chronic osteomyelitis status post spinal surgery in [place] complicated by dehiscence who is admitted for acute encephalopathy and cardiology consulted for A-fib with RVR. #A-fib with RVR on Eliquis Presents with acute encephalopathy and bright red blood in oral cavity. Initial EKG showed pulse of 123 and telemetry reviewed today and showed rate between 70s and 80s. However, initial hemoglobin of 9.3 that downtrended to 7.1. ? Currently on amiodarone 200 mg twice daily, but if can tolerate orally can resume home metoprolol tartrate 100 mg twice daily ? Eliquis held given GIB and will follow GI recommendations on whether to resume afterwards #CAD status post multiple stents Follows up with Dr. Yadav outpatient. Last stent placed in 2022, so plavix is not needed. ? Home atorvastatin 40 mg if can swallow #GI bleed #Acute blood loss anemia ? Recommend to keep hemoglobin > 8 given cardiac history ? Limited IV access at this time, pulled out PICC line and plans for central line placement #Acute encephalopathy #Urinary tract infection #Lactic acidosis #Starvation ketosis #History of esophageal ulcers #Castorena's esophagus #CVA 2023 #ARIA on CKD #Chronic osteomyelitis ? Continue management per primary team ----- Plan discussed with attending physician Dr. Neil Gifford MD PGY-2 Internal Medicine
[2025-01-02 17:20] LABS: Sodium 145 mMol/L (136-145)
--- NOTE | 2025-01-02 18:25 | SUR.PHASEI ---
1825: Pt. wakes to name then drifts back to sleep, vitals stable, breathing unlabored, no complaint of pain or nausea, report received from Arnaza MACK.
--- NOTE | 2025-01-02 18:46 | SUR.PHASEI ---
1846: Pt. AAOx4, vital stable, breathing unlabored, no complaint of pain or nausea, per endo nurse Aranza, pt. is to remain NPO for swallow eval tomorrow, gave report to Lynette MACK prior to transfer to room.
[2025-01-02] MEDS: AMIODARONE 360 MG IVPB 360 MG/200 ML BAG 16.667 MG IV (20:04)
[2025-01-03] VITALS (13 sets, daily range): BP systolic 111–156; BP diastolic 67–104; PULSE 66–104; RESP 15–100; TEMP 35.8–36.6; O2SAT 95–100; BMI 29.7
[2025-01-03 06:07] LABS: Basophils # (Auto) 0.0 Thou/mm3 (0.0-0.2); Basophils % (Auto) 0 % (0-2.5); Eosinophils # (Auto) 0.5 Thou/mm3 (0.0-0.5); Eosinophils % (Auto) 9 % (0-10); Hematocrit 28.4 % (41.0-53.0); Hemoglobin 9.3 g/dL (13.5-16.0); Immature Granulocytes Auto 0.04 Thou/mm3 (0.00-0.00); Lymphocytes # (Auto) 0.5 Thou/mm3 (1.0-4.8); Lymphocytes % (Auto) 9 % (10-50); Mean Corpuscular HGB Conc 32.7 g/dl (31.0-37.0); Mean Corpuscular Hemoglobin 30.0 pg (25.0-35.0); Mean Corpuscular Volume 92 fL (80-100); Monocytes # (Auto) 0.3 Thou/mm3 (0.0-0.8); Monocytes % (Auto) 5 % (0-12); Neutrophils # (Auto) 4.4 Thou/mm3 (1.8-7.7); Neutrophils % (Auto) 76 % (37-80); Nucleated Red Blood Cell # 0.00 Thou/mm3 (0.00-0.00); Nucleated Red Blood Cell % 0 /100 WBC (0); Platelet Count 225 Thou/mm3 (140-440); RDW Standard Deviation 59.7 fL (35.1-43.9); Red Blood Count 3.10 Miln/mm3 (4.50-5.90); White Blood Count 5.8 Thou/mm3 (3.8-10.6)
[2025-01-03] MEDS: AMIODARONE 360 MG IVPB 360 MG/200 ML BAG 16.667 MG IV (06:09)
[2025-01-03 06:26] LABS: Alanine Aminotransferase 24 U/L (10-49); Albumin, Serum 2.9 gm/dL (3.4-4.8); Albumin/Globulin Ratio 1.1 (1.2-2.2); Alkaline Phosphatase 105 U/L (46-116); Anion Gap 15 (7-16); Aspartate Amino Transferase 32 U/L (0-34); BUN/Creatinine Ratio 14 Ratio (12-20); Bilirubin,Total 0.8 mg/dL (0.3-1.2); Blood Urea Nitrogen 26 mg/dL (9-23); Calcium 8.4 mg/dL (8.3-10.6); Calcium (Corrected) 9.3 mg/dL (8.5-10.1); Carbon Dioxide 17.3 mMol/L (20.0-31.0); Chloride 115 mMol/L (98-107); Creatinine (Component) 1.8 mg/dL (0.6-1.3); Estimated Creatinine Clearance 43.2 mL/min (>60); Globulin 2.6 gm/dL (2.3-3.5); Glucose 84 mg/dL (74-106); Magnesium 2.1 mg/dL (1.6-2.6); Osmolality,Calculated 296 (275-295); Phosphorous 3.4 mg/dL (2.4-5.1); Potassium 3.5 mMol/L (3.4-5.1); Sodium 147 mMol/L (136-145); Total Protein 5.5 gm/dL (5.7-8.2); eGFR 42 See Note
--- NOTE | 2025-01-03 07:52 | PC.NURSE ---
Pt. central line appears to be out of place, Dr. Torres aware and coming to assess. RN recs chest xray to assess placement. No orders received.
--- NOTE | 2025-01-03 08:23 | XR_ITS ---
EXAMINATION: AP chest single view TECHNIQUE: AP portable semiupright chest single view Date and time: January 03, 2025, 0838 hours COMPARISON: December 31, 2024 INDICATIONS: Post central line placement FINDINGS: Right internal jugular central line tip SVC Mild prominence left ventricle Minor atelectasis left base No pneumonia or pulmonary edema No pneumothorax IMPRESSION: Right internal jugular central line tip satisfactory position
--- NOTE | 2025-01-03 09:05 | ESPR_ITS ---
<Statement entered by Tl Trejo MD - 01/06/25 12:14> The patient is clinically doing better evaluated by me personally along with resident physician PGY 2 Dr. Giuliano GIFFORD patient did have endoscopy esophageal ulcers patient is recommended to be continued on metoprolol 100 mg daily for rate control anticoagulation will be started when cleared by yarn examiner skeins. Documentation for date of: 01/03/25 Subjective Subjective Interval history: No acute overnight events. Seen and examined at bedside with family present. Underwent EGD overnight and was found to have esophageal ulcers and changes consistent with Castorena's esophagus. Was on amiodarone drip overnight and rate remained stable in the 80s. Upon discontinuation, to have home metoprolol tartrate 100 mg twice daily resumed. Per GI, Eliquis restarted for his atrial fibrillation. Exam Vital Signs Temp Pulse Resp BP Pulse Ox O2 Del Method O2 Flow Rate 97.0 F 84 18 123/67 96 Room Air 3 01/03/25 08:00 01/03/25 08:00 01/03/25 08:00 01/03/25 08:00 01/03/25 08:00 01/03/25 08:00 01/02/25 18:15 Narrative Exam General: chronically ill appearing, mentation waxes and wanes, no acute distress HEENT: bright red blood on lips, NC/AT, mucous membranes moist, bilateral sclera anicteric Cardiovascular: irregular rhythm, normal rate, S1/S2 present, no murmurs appreciated Pulmonary: clear to auscultation bilaterally, no rales/rhonchi/wheezes Abdominal: soft, non-tender, non-distended, no rebound/guarding, normal bowel sounds present Musculoskeletal: mittens placed, normal ROM Skin: warm and dry, intact, no rashes Objective Labs 01/03/25 05:20 01/03/25 05:20 Labs: Laboratory Results - last 24 hr 01/02/25 01/02/25 01/03/25 08:55 16:35 05:20 WBC 5.8 RBC 3.10 L Hgb 9.3 L Hct 28.4 L MCV 92 MCH 30.0 MCHC 32.7 RDW Std Deviation 59.7 H Plt Count 225 Neut % (Auto) 76 Lymph % (Auto) 9 L [place] % (Auto) 5 Eos % (Auto) 9 Baso % (Auto) 0 Neut # (Auto) 4.4 Lymph # (Auto) 0.5 L [place] # (Auto) 0.3 Eos # (Auto) 0.5 Baso # (Auto) 0.0 Immature Gran # (Auto) 0.04 H Absolute Nucleated RBC 0.00 Immature Gran % 1 H Nucleated RBC % 0 Sodium 147 H 145 147 H Potassium 3.5 D Chloride 115 H Carbon Dioxide 17.3 L Anion Gap 15 BUN 26 H Creatinine 1.8 H Estim Creat Clear Calc 43.2 L eGFR 42 L BUN/Creatinine Ratio 14 Glucose 84 Calculated Osmolality 296 H Calcium 8.4 Corrected Calcium 9.3 Phosphorus 3.4 Magnesium 2.1 Total Bilirubin 0.8 AST 32 ALT 24 Alkaline Phosphatase 105 Total Protein 5.5 L Albumin 2.9 L Globulin 2.6 Albumin/Globulin Ratio 1.1 L ABG Interpretation ABG results: 12/31/24 21:48 VBG pH 7.38 VBG pCO2 31 L VBG pO2 40 VBG Base Excess -6 L Quality Measures Quality Measures none Assessment & Plan Assessment Current Active Medications: Generic Name Dose Route Start Last Admin Trade Name Freq PRN Reason Stop Dose Admin Acetaminophen 650 mg 12/31/24 09:59 Acetaminophen 325 Mg Tablet PO 01/30/25 09:58 Q6H PRN Fever >100.4 and/or pain Atorvastatin Calcium 40 mg 01/01/25 21:00 01/02/25 20:04 Atorvastatin Calcium 20 Mg Tablet PO 01/31/25 20:59 Not Given HS HANNAH Cefepime HCl 1 gm/ Sodium 50 mls @ 100 mls/hr 12/31/24 11:15 01/02/25 09:06 Chloride IV 01/07/25 11:14 100 mls/hr QDAY HANNAH Administration Vancomycin/Sodium Chloride 200 mls @ 120 mls/hr 01/01/25 10:00 01/02/25 11:59 Vancomycin/Ns 1 Gm Ivpb IV 01/08/25 09:59 120 mls/hr Q24H HANNAH Administration Protocol Amiodarone HCl/Dextrose 360 mg in 200 mls @ 16.667 mls/hr 01/02/25 17:24 01/03/25 06:09 Nexterone Ivpb IV 01/03/25 17:23 16.667 mls/hr .Q12H HANNAH Administration Potassium Phosphate 15 mmol in 250 mls @ 62.5 mls/hr 01/03/25 07:36 Pot Phos 15 Mmol In Ns 250 Ml IV 01/03/25 15:35 Q4H HANNAH Dextrose 1,000 mls @ 100 mls/hr 01/03/25 08:15 D5w IV 01/03/25 18:14 .Q10H HANNAH Multivitamins 1 tab 01/01/25 09:00 01/02/25 09:07 Multivitamins Tablet PO 01/31/25 08:59 Not Given QDAY HANNAH Ondansetron HCl 4 mg 12/31/24 09:59 Ondansetron Inj 2 Mg/Ml Inj 2 Ml IVP 01/30/25 09:58 Q6H PRN NAUSEA OR VOMITING Protocol Pantoprazole Sodium 40 mg 12/31/24 14:30 01/02/25 20:03 Pantoprazole Inj 40 Mg Vial IVP 01/30/25 14:29 40 mg BID HANNAH Administration Pharmacy Consult 1 each 12/31/24 10:40 Vancomycin Pharmacy To Dose 1 Each Each IV 01/30/25 10:39 QDAY PRN PROTOCOL Sennosides 1 tab 12/31/24 09:59 Senna Tablet PO 01/30/25 09:58 QDAY PRN constipation Protocol Zinc Sulfate 220 mg 01/01/25 09:00 01/02/25 09:07 Zinc Sulfate 220 Mg Capsule PO 01/31/25 08:59 Not Given QDAY [facility] Plan Agustin Schrader is a 64-year-old male with a past medical history of CAD status post stents on Plavix, A-fib on Eliquis, CVA in 2023, UGIB secondary to esophageal ulcers, Castorena's esophagus, and chronic osteomyelitis status post spinal surgery in [place] complicated by dehiscence who is admitted for acute encephalopathy and cardiology consulted for A-fib with RVR. #A-fib with RVR on Eliquis Presents with acute encephalopathy and bright red blood in oral cavity. Initial EKG showed pulse of 123 and telemetry reviewed today and showed rate between 70s and 80s. However, initial hemoglobin of 9.3 that downtrended to 7.1. ? Metoprolol tartrate 100 mg twice daily ? Eliquis 5 mg twice daily resumed per GI #CAD status post multiple stents Follows up with Dr. Yadav outpatient. Last stent placed in 2022, so plavix is not needed. ? Home atorvastatin 40 mg #GI bleed #Acute blood loss anemia ? Recommend to keep hemoglobin > 8 given cardiac history #Acute encephalopathy #Urinary tract infection #Lactic acidosis #Starvation ketosis #History of esophageal ulcers #Castorena's esophagus #CVA 2023 #ARIA on CKD #Chronic osteomyelitis ? Continue management per primary team ----- Plan discussed with attending physician Dr. Neil Gifford MD PGY-2 Internal Medicine
--- NOTE | 2025-01-03 09:18 | PC.NURSE ---
IV meds on hold until central line placement is verified.
--- NOTE | 2025-01-03 09:40 | PC.NURSE ---
Dr. Bellamy at bedside and looking at pt. central line. aware pt. almost completely self removed Central line, it is still partially in place. orders to DC all IV meds except D5 infusion. Medication adjustments being made by Dr. Bellamy and team.
[2025-01-03] MEDS: DEXTROSE 5%-WATER 1,000 ML 100 ML IV (10:13)
[2025-01-03] MEDS: AMIODARONE HCL 200 MG TABLET PO (10:14)
[2025-01-03] MEDS: MULTIVITAMINS TABLET 1 TAB PO (10:14)
[2025-01-03] MEDS: NAPH,KPH MBDB 1 PACKET (1.5 GM) PO (10:14)
[2025-01-03] MEDS: ZINC SULFATE 220 MG CAPSULE PO (10:14)
[2025-01-03 10:43] LABS: Vancomycin,Trough 19.7 mcg/mL (5.0-10.0)
[2025-01-03] MEDS: FLUCONAZOLE 100 MG TABLET 200 MG PO (11:06)
--- NOTE | 2025-01-03 13:00 | PC.NURSE ---
Charge Nurse Brenda aware of orders for Med Tele
--- NOTE | 2025-01-03 13:00 | ESPR_ITS ---
Documentation for date of: 01/03/25 Senior resident attestation: Patient evaluated and examined at the bedside, plan of care discussed with rest of the team including my attending physician, except as noted. Patient is a 64-year-old male with a past medical history of coronary artery disease on Plavix, A-fib on Eliquis, history of Castorena's esophagitis and history of upper GI bleed, who manage in the ER for altered mental status, found to have dried up blood around his and tachycardia. Patient was admitted for A- fib RVR, hematemesis/upper GI bleed and acute encephalopathy. Also found to have UTI and high anion gap metabolic acidosis. Patient had poor IV access, unable to obtain baseline, requiring blood transfusion, due to acute blood loss anemia, central line was placed by IR for IV access. # UTI- history of prior UTI with Enterococcus, now positive with yeast, fluconazole 100 mg daily for 7 days. Patient has chronic indwelling Tinoco's catheter. # Chronic Vertebral Osteomyelitis- On previous admission, pt was discharged with 8-week course of p.o. antibiotics of doxycycline and levofloxacin as he had pulled the PICC line. Levofloaxin 750mg once a day along with doxycycline 100 mg tablet by mouth twice a day for total of 8 weeks for chronic osteomyelitis, End date of 02/12/2025; repeat imaging of spine to reassess after 6 weeks. # GI bleed- previous history of Castorena's esophagitis, EGD 01/02 showed esophageal ulcers gastritis Castorena's esophagus and erythematous duodenopathy, GI recommended advancing diet as tolerated. # A-fib RVR- cardiology was consulted for A-fib with RVR, Eliquis was initially held in the setting of GI bleed. was on Amiodarone 200mg, now discontinued, per cardiology conitnue metoprolol tartarate 100mg Bid. Eliquis resumed after Cardio and GI recs and negative EGD for active bleeding. Quresh PGY3 Subjective Subjective Interval history: No acute overnight events. Patient seen examined at bedside. Patient denies any bodily pain, no new complaints. Vitals labs reviewed. SBP 110-130. Telemetry reviewed, atrial fibrillation rate 80s. Hemoglobin stable 9.4, sodium 147, chloride 115, BUN stable elevated 6, bicarb 17, creatinine downtrending from 2-1.8. Urine culture preliminary yeast. Fluconazole 200 mg x 1 given followed by fluconazole 100 mg daily for 13 more days, renally dosed. Vancomycin discontinued switch to Doxycycline p.o. Discontinued central line as CONTACT CENTER ASSISTANT cleared. PUD diet started. Per GI, restarted Eliquis 5 mg twice daily. Per cardiology, restart metoprolol tartrate 100 mg BID starting tonight and discontinue amiodarone. Exam Vital Signs Temp Pulse Resp BP Pulse Ox O2 Del Method O2 Flow Rate 96.8 F 80 16 156/96 H 100 Room Air 3 01/03/25 12:00 01/03/25 12:00 01/03/25 12:00 01/03/25 12:00 01/03/25 12:00 01/03/25 12:00 01/02/25 18:15 Narrative Exam GENERAL: alert and oriented x1 to name, no acute distress HEENT: mucous membranes dry, bilateral sclera anicteric CARDIOVASCULAR: regular rate, irregular rhythm, S1/S2 present, no murmurs appreciated PULMONARY: clear to auscultation bilaterally, no rales/rhonchi/wheezes ABDOMINAL: soft, non-tender, non-distended, no rebound/guarding, bowel sounds present EXTREMITIES: no peripheral edema SKIN: warm and dry, no rashes, +stage IV pressure ulcer at lower thoracic region with bone showing, non purulent and non erythematous. NEURO: CN II-XII grossly intact, following commands Objective Labs 01/04/25 04:57 01/04/25 04:57 Labs: Laboratory Results - last 24 hr 01/02/25 01/03/25 01/03/25 16:35 05:20 10:15 WBC 5.8 RBC 3.10 L Hgb 9.3 L Hct 28.4 L MCV 92 MCH 30.0 MCHC 32.7 RDW Std Deviation 59.7 H Plt Count 225 Neut % (Auto) 76 Lymph % (Auto) 9 L [place] % (Auto) 5 Eos % (Auto) 9 Baso % (Auto) 0 Neut # (Auto) 4.4 Lymph # (Auto) 0.5 L [place] # (Auto) 0.3 Eos # (Auto) 0.5 Baso # (Auto) 0.0 Immature Gran # (Auto) 0.04 H Absolute Nucleated RBC 0.00 Immature Gran % 1 H Nucleated RBC % 0 Sodium 145 147 H Potassium 3.5 D Chloride 115 H Carbon Dioxide 17.3 L Anion Gap 15 BUN 26 H Creatinine 1.8 H Estim Creat Clear Calc 43.2 L eGFR 42 L BUN/Creatinine Ratio 14 Glucose 84 Calculated Osmolality 296 H Calcium 8.4 Corrected Calcium 9.3 Phosphorus 3.4 Magnesium 2.1 Total Bilirubin 0.8 AST 32 ALT 24 Alkaline Phosphatase 105 Total Protein 5.5 L Albumin 2.9 L Globulin 2.6 Albumin/Globulin Ratio 1.1 L Vancomycin Trough 19.7 H ABG Interpretation ABG results: 12/31/24 21:48 VBG pH 7.38 VBG pCO2 31 L VBG pO2 40 VBG Base Excess -6 L Quality Measures Quality Measures none Assessment & Plan Assessment Current Active Medications: Generic Name Dose Route Start Last Admin Trade Name Freq PRN Reason Stop Dose Admin Acetaminophen 650 mg 12/31/24 09:59 Acetaminophen 325 Mg Tablet PO 01/30/25 09:58 Q6H PRN Fever >100.4 and/or pain Apixaban 5 mg 01/03/25 21:00 Apixaban 2.5 Mg Tablet PO 02/02/25 20:59 BID HANNAH Atorvastatin Calcium 40 mg 01/01/25 21:00 01/02/25 20:04 Atorvastatin Calcium 20 Mg Tablet PO 01/31/25 20:59 Not Given HS HANNAH Cadexomer Iodine 0 gm 01/03/25 21:00 Cadexomer Iodine Gel 40 Gm Tube TOP 01/10/25 20:59 HS HANNAH Doxycycline Hyclate 100 mg 01/03/25 21:00 Doxycycline 100 Mg Tablet PO 01/10/25 20:59 BID HANNAH Fluconazole 100 mg 01/04/25 09:00 Fluconazole 100 Mg Tablet PO 01/17/25 08:59 QDAY HANNAH Dextrose 1,000 mls @ 100 mls/hr 01/03/25 08:15 01/03/25 10:13 D5w IV 01/03/25 18:14 100 mls/hr .Q10H HANNAH Administration Metoprolol Tartrate 100 mg 01/03/25 21:00 Metoprolol Tartrate 25 Mg Tablet PO 02/02/25 20:59 BID HANNAH Multivitamins 1 tab 01/01/25 09:00 01/03/25 10:14 Multivitamins Tablet PO 01/31/25 08:59 1 tab QDAY HANNAH Administration Ondansetron HCl 4 mg 12/31/24 09:59 Ondansetron Inj 2 Mg/Ml Inj 2 Ml IVP 01/30/25 09:58 Q6H PRN NAUSEA OR VOMITING Protocol Pantoprazole Sodium 40 mg 12/31/24 14:30 01/03/25 10:14 Pantoprazole Inj 40 Mg Vial IVP 01/30/25 14:29 40 mg BID HANNAH Administration Sennosides 1 tab 12/31/24 09:59 Senna Tablet PO 01/30/25 09:58 QDAY PRN constipation Protocol Zinc Sulfate 220 mg 01/01/25 09:00 01/03/25 10:14 Zinc Sulfate 220 Mg Capsule PO 01/31/25 08:59 220 mg QDAY HANNAH Administration Plan Agustin Schrader 64M pmhx significant for A-fib on Eliquis, CAD s/p multiple stents on Plavix, CVA wheelchair bound, CKD stage IIIb, Castorena's esophagus, hx of UGIB and esophageal ulcers, chronic osteomyelitis of the T11-T12 spine s/p debridement and currently on oral abx, who presented to [facility] ED on 12/31 from SNF due to altered mental status, oral bleeding and atrial fibrillation RVR. #Acute on chronic Encephalopathy, metabolic vs infectious #UTI #Lactic acidosis #Starvation ketosis Presented with 1-2 days of AMS at [facility], per alert and conversional two days ago, however endorses decreased PO intake. Previously presented on 12/15 for altered mental status secondary to urinary retention, however in ED, Tinoco catheter in place. Bicarb 16.9, lactic acid 2.7->1.8, BHB 1.3->1.1. UA turbid, 1+ protein, 1+ ketone, 3+ blood, +LE, 141 RBC, 456 WBC, yeast present. s/p 2L NS total boluses in ED. UCx grew yeast 01/01 KUB: mild small bowel ileus Ddx: sepsis 2/2 UTI vs starvation ketosis 2/2 poor PO intake Plan: - Fluconazole 200 mg x 1 today followed by fluconazole 100 mg QD for another 13 days - D5W at 100 cc/hr - Avoid sedating agents - CONTACT CENTER ASSISTANT consulted, recs appreciated: passed swallow, PUD diet - Central line to be removed today as patient cleared by CONTACT CENTER ASSISTANT #Chronic osteomyelitis Longstanding history of stage IV ulcer at T11-T12 with history of debridement and on long-term antibiotics. On previous admission on 12/15, discharged with 8-week course of p.o. antibiotics of doxycycline and levofloxacin as patient pulled the PICC line. Vancomycin (12/31-01/03) Plan: - Cefepime (12/31- and Doxycycline (01/03- - Wound care consulted - ID consulted, recs appreciated #Acute post hemorrhagic anemia s/p 1 pRBC 01/01 #Upper GIB #Hematemasis #Hx of esophageal ulcers #Castorena's esophagus Presented with at least one episode of hematemasis, dried crusted blood on lips. Unknown how many episodes occurred. Hgb 9.3, increased from last admission. No history of cirrhosis per imaging. 12/17 EGD esophageal ulcers, esophageal mucosal changes consistent segment Castorena's esophagus, gastritis 01/01, Hgb 7.1 with red blood noted in mouth and on lips Ddx: Esophageal ulcer bleed vs Irma gupta tear vs gastric ulcer bleeds 01/02 EGD esophageal ulcers, subcu mucosal changes consistent with Castorena's esophagus, gastritis, erythematous duodenopathy Plan: - GI consulted, recs appreciated: PUD diet, no need for colonoscopy at this time - Transfuse is Hgb <8 - IV pantoprazole 40 mg BID #Atrial fibrillation RVR, resolved #Hx atrial fibrillation on Eliquis #CAD s/p multiple stents #HTN #Hx CVA on Plavix Longstanding history of atrial fibrillation, 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 Home medications include atorvastatin 40 mg daily, Eliquis 5 mg twice daily, metoprolol tartrate 100 mg twice daily, losartan 25 mg daily. s/p initiation of dilt drip in ED, however SBP 79 and transitioned to amio drip. Plan: - Resume home metoprolol tartrate 100 mg BID and atorvastatin 40 mg qhs - Continue holding home losartan iso soft BP - Discontinue amiodarone IV per cardiology - Home Eliquis 5 mg BID per cardiology and GI - Cardiology consulted, recs appreciated: Discontinue Plavix as patient last stent was >1 year ago #Hypernatremia #Hyperchloremia #Hypomagnesemia On 12/31, Na 146 and steadily increasing. Likely 2/2 volume depletion from dehydration vs GIB. Plan: - D5W 100cc/hr with goal 24h Na reduction by 8-10 mMol/L - F/u afternoon Na - Recheck and replete as necessary #ARIA on CKDIIIb #Hx of Enterococcus UTI On admission, creatinine 2.2, BL 1.4-1.5. Likely 2/2 UTI vs lactic acidosis vs dehydration/poor p.o. intake. Renal US: moderate scarring of R kidney, L not visualized Plan: - Gentle IVF as above - Renally dose and avoid nephrotoxic medications Hospital management: Lines: PIV Diet: NPO Bowel: Senna prn GI prophylaxis: IV pantoprazole 40 mg BID DVT prophylaxis: SCDs iso GIB Disposition: tele, EGD pending CODE STATUS: FULL CODE Plan of care discussed with attending Dr. Bellamy, and PGY-2 Dr. Ness. Yohana Torres DO PGY-1 Internal Medicine Attending Provider Attestation/Addendum Suzanna Kang DO, attest that I was physically present for the umanzor portions of the service and evaluated the patient with the resident and I reviewed and discussed the case with the resident and agree with the resident's findings and plans of care as documented above Patient seen and eval this a.m. A central line had been placed yesterday, but patient has removed part of that central line at this time. EGD was done yesterday revealing esophageal ulcers, erythematous duodenopathy and Castorena's esophagus again. Diet has been advanced and patient has been seen by speech therapy. Will switch IV pain medications to oral at this time. Patient had been transition to levofloxacin 750 once a day on last admission since he had also removed his central line. Will have ID evaluate patient due to for recommendations of antibiotic coverage as patient cannot keep his IV access. Okay to restart anticoagulation per GI. Will continue to monitor hemoglobin. If patient remains stable anticipate discharge within the next 24 hours. Fluconazole has been started as patient grew yeast in his urine cultures. Patient remains at baseline mental status.
--- NOTE | 2025-01-03 14:10 | ESPR_ITS ---
Subjective Subjective Interval history: seen earlier this [facility]. urine with yeast and lots of wbc and rbc's Exam Vital Signs Temp Pulse Resp BP Pulse Ox O2 Del Method O2 Flow Rate 96.8 F 80 16 156/96 H 100 Room Air 3 01/03/25 12:00 01/03/25 12:00 01/03/25 12:00 01/03/25 12:00 01/03/25 12:00 01/03/25 12:00 01/02/25 18:15 Narrative Exam benign exam but on flucon po Objective - Internal Medicine Labs 01/03/25 05:20 01/03/25 05:20 Labs: Laboratory Results - last 24 hr 01/02/25 01/03/25 01/03/25 16:35 05:20 10:15 WBC 5.8 RBC 3.10 L Hgb 9.3 L Hct 28.4 L MCV 92 MCH 30.0 MCHC 32.7 RDW Std Deviation 59.7 H Plt Count 225 Neut % (Auto) 76 Lymph % (Auto) [address] [place] % (Auto) 5 Eos % (Auto) 9 Baso % (Auto) 0 Neut # (Auto) 4.4 Lymph # (Auto) 0.[address] [place] # (Auto) 0.3 Eos # (Auto) 0.5 Baso # (Auto) 0.0 Immature Gran # (Auto) 0.04 H Absolute Nucleated RBC 0.00 Immature Gran % 1 H Nucleated RBC % 0 Sodium 145 147 H Potassium 3.5 D Chloride 115 H Carbon Dioxide 17.3 L Anion Gap 15 BUN 26 H Creatinine 1.8 H Estim Creat Clear Calc 43.2 L eGFR 42 L BUN/Creatinine Ratio 14 Glucose 84 Calculated Osmolality 296 H Calcium 8.4 Corrected Calcium 9.3 Phosphorus 3.4 Magnesium 2.1 Total Bilirubin 0.8 AST 32 ALT 24 Alkaline Phosphatase 105 Total Protein 5.5 L Albumin 2.9 L Globulin 2.6 Albumin/Globulin Ratio 1.1 L Vancomycin Trough 19.7 H ABG Interpretation ABG results: 12/31/24 21:48 VBG pH 7.38 VBG pCO2 31 L VBG pO2 40 VBG Base Excess -6 L Assessment & Plan A&P Narrative here for other reasons. chronic tenorio noted. ua abn and worse than earlier this month. about as many rbc as wbc so may need urology eval while here ok to finish rocephin and doxy on 02/10 and add flucon 100mg po q day for 7d. this is likely the result of prior abx though. as well as the chronic tenorio Time Spent With Patient Time: Total time spent is greater than 50% in coordination of care (as documented) at patient's floor/unit and/or counseling patient:
--- NOTE | 2025-01-03 14:50 | PC.NURSE ---
Clarified with wound MARTINA Mackey if wound care to be performed now, wound MARTINA Mackey states start care tonight at 2100.
[2025-01-03] MEDS: cefTRIAXone 2 GM in SODIUM CHLORIDE 0.9% (Popper) 50 ML IV (15:28)
--- NOTE | 2025-01-03 16:03 | PC.SS ---
rounding note: Pending ID consult. Hyponatremia needs to be resolved. Patient plans on returning to [facility] when stable.
--- NOTE | 2025-01-03 16:54 | PD.ADDPROG ---
Addendum Progress Note Addendum Date of report being addended: 01/03/25 Narrative: if you want to give him po rx as before that is your plan. I will see in house prn
--- NOTE | 2025-01-03 19:51 | PD.IMPROG ---
Documentation for date of: 01/03/25 Subjective Subjective Interval history: Patient evaluated Hemoglobin hematocrit 9.3 and 28.4 Upper endoscopy showed distal esophageal ulcers Exam Vital Signs Temp Pulse Resp BP Pulse Ox O2 Del Method O2 Flow Rate 96.7 F L 83 18 154/97 H 100 Room Air 3 01/03/25 16:00 01/03/25 16:00 01/03/25 16:00 01/03/25 16:00 01/03/25 16:00 01/03/25 16:00 01/02/25 18:15 Objective Labs 01/03/25 05:20 01/03/25 05:20 Labs: Laboratory Results - last 24 hr 12/31/24 01/03/25 01/03/25 14:58 05:20 10:15 WBC 5.8 RBC 3.10 L Hgb 9.3 L Hct 28.4 L MCV 92 MCH 30.0 MCHC 32.7 RDW Std Deviation 59.7 H Plt Count 225 Neut % (Auto) 76 Lymph % (Auto) 9 L [place] % (Auto) 5 Eos % (Auto) 9 Baso % (Auto) 0 Neut # (Auto) 4.4 Lymph # (Auto) 0.5 L [place] # (Auto) 0.3 Eos # (Auto) 0.5 Baso # (Auto) 0.0 Immature Gran # (Auto) 0.04 H Absolute Nucleated RBC 0.00 Immature Gran % 1 H Nucleated RBC % 0 Sodium 147 H Potassium 3.5 D Chloride 115 H Carbon Dioxide 17.3 L Anion Gap 15 BUN 26 H Creatinine 1.8 H Estim Creat Clear Calc 43.2 L eGFR 42 L BUN/Creatinine Ratio 14 Glucose 84 Calculated Osmolality 296 H Calcium 8.4 Corrected Calcium 9.3 Phosphorus 3.4 Magnesium 2.1 Total Bilirubin 0.8 AST 32 ALT 24 Alkaline Phosphatase 105 Total Protein 5.5 L Albumin 2.9 L Globulin 2.6 Albumin/Globulin Ratio 1.1 L Vancomycin Trough 19.7 H Crossmatch See Detail Impressions Impression: Distal esophageal ulcers Anemia blood loss Continue current management ABG Interpretation ABG results: 12/31/24 21:48 VBG pH 7.38 VBG pCO2 31 L VBG pO2 40 VBG Base Excess -6 L Assessment & Plan A&P Narrative here for other reasons. chronic tenorio noted. ua abn and worse than earlier this month. about as many rbc as wbc so may need urology eval while here ok to finish rocephin and doxy on 02/10 and add flucon 100mg po q day for 7d. this is likely the result of prior abx though. as well as the chronic tenorio Time Spent With Patient Time: Total time spent is greater than 50% in coordination of care (as documented) at patient's floor/unit and/or counseling patient:
[2025-01-03] MEDS: ATORVASTATIN CALCIUM 20 MG TABLET 40 MG PO (21:22)
[2025-01-03] MEDS: APIXABAN 2.5 MG TABLET 5 MG PO (21:22)
[2025-01-03] MEDS: METOPROLOL TARTRATE 25 MG TABLET 100 MG PO (21:23)
[2025-01-03] MEDS: DOXYCYCLINE 100 MG TABLET PO (21:23)
--- NOTE | 2025-01-03 22:33 | PC.NURSE ---
PT COMBATIVE AND NOT COOPERATIVE WITH CARE, UNABLE TO DO WOUND CARE AT THIS TIME
[2025-01-04] VITALS (8 sets, daily range): BP systolic 96–145; BP diastolic 66–81; PULSE 68–99; RESP 14–18; TEMP 36.4–36.6; O2SAT 99–100; BMI 29.7
[2025-01-04 06:25] LABS: Basophils # (Auto) 0.0 Thou/mm3 (0.0-0.2); Basophils % (Auto) 0 % (0-2.5); Eosinophils # (Auto) 0.5 Thou/mm3 (0.0-0.5); Eosinophils % (Auto) 8 % (0-10); Hematocrit 29.4 % (41.0-53.0); Hemoglobin 9.5 g/dL (13.5-16.0); Immature Granulocytes Auto 0.07 Thou/mm3 (0.00-0.00); Lymphocytes # (Auto) 0.7 Thou/mm3 (1.0-4.8); Lymphocytes % (Auto) 12 % (10-50); Mean Corpuscular HGB Conc 32.3 g/dl (31.0-37.0); Mean Corpuscular Hemoglobin 29.4 pg (25.0-35.0); Mean Corpuscular Volume 91 fL (80-100); Monocytes # (Auto) 0.4 Thou/mm3 (0.0-0.8); Monocytes % (Auto) 7 % (0-12); Neutrophils # (Auto) 4.0 Thou/mm3 (1.8-7.7); Neutrophils % (Auto) 72 % (37-80); Nucleated Red Blood Cell # 0.00 Thou/mm3 (0.00-0.00); Nucleated Red Blood Cell % 0 /100 WBC (0); Platelet Count 220 Thou/mm3 (140-440); RDW Standard Deviation 59.4 fL (35.1-43.9); Red Blood Count 3.23 Miln/mm3 (4.50-5.90); White Blood Count 5.5 Thou/mm3 (3.8-10.6)
[2025-01-04 06:40] LABS: Alanine Aminotransferase 19 U/L (10-49); Albumin, Serum 2.9 gm/dL (3.4-4.8); Albumin/Globulin Ratio 1.0 (1.2-2.2); Alkaline Phosphatase 111 U/L (46-116); Anion Gap 11 (7-16); Aspartate Amino Transferase 30 U/L (0-34); BUN/Creatinine Ratio 16 Ratio (12-20); Bilirubin,Total 0.5 mg/dL (0.3-1.2); Blood Urea Nitrogen 28 mg/dL (9-23); Calcium 8.6 mg/dL (8.3-10.6); Calcium (Corrected) 9.5 mg/dL (8.5-10.1); Carbon Dioxide 17.2 mMol/L (20.0-31.0); Chloride 113 mMol/L (98-107); Creatinine (Component) 1.7 mg/dL (0.6-1.3); Estimated Creatinine Clearance 45.8 mL/min (>60); Globulin 2.9 gm/dL (2.3-3.5); Glucose 77 mg/dL (74-106); Magnesium 1.9 mg/dL (1.6-2.6); Osmolality,Calculated 285 (275-295); Phosphorous 3.0 mg/dL (2.4-5.1); Potassium 3.8 mMol/L (3.4-5.1); Sodium 141 mMol/L (136-145); Total Protein 5.8 gm/dL (5.7-8.2); eGFR 45 See Note
[2025-01-04] MEDS: MULTIVITAMINS TABLET 1 TAB PO (09:34)
[2025-01-04] MEDS: FLUCONAZOLE 100 MG TABLET PO (09:34)
[2025-01-04] MEDS: APIXABAN 2.5 MG TABLET 5 MG PO ×2 (09:34→20:25)
[2025-01-04] MEDS: DOXYCYCLINE 100 MG TABLET PO ×2 (09:34→20:26)
[2025-01-04] MEDS: ZINC SULFATE 220 MG CAPSULE PO (09:34)
--- NOTE | 2025-01-04 09:58 | ESPR_ITS ---
<Statement entered by Tl Trejo MD - 01/06/25 12:15> I personally examined and evaluated the patient with resident physician PGY 2 Dr. Giuliano Gifford patient doing clinically well A-fib rate controlled well recommend continuing medical management including metoprolol for rate control Eliquis restarted no active bleeding. Will monitor the patient as an outpatient. Documentation for date of: 01/04/25 Subjective Subjective Interval history: No acute overnight events. Seen and examined at [facility] with mittens on. Does not have any complaints at this time. Heart rate reviewed and remains rate controlled on home metoprolol tartrate 100 mg twice daily though morning dose held in light of lower blood pressures. Was to be discharged but on mittens and will require 24 hours mitten-free. Exam Vital Signs Temp Pulse Resp BP Pulse Ox O2 Del Method O2 Flow Rate 97.9 F 78 18 112/68 100 Room Air 3 01/04/25 04:00 01/04/25 09:36 01/04/25 04:00 01/04/25 09:36 01/04/25 04:00 01/04/25 04:00 01/02/25 18:15 Narrative Exam General: chronically ill appearing, mentation waxes and wanes, no acute distress HEENT: bright red blood on lips, NC/AT, mucous membranes moist, bilateral sclera anicteric Cardiovascular: irregular rhythm, normal rate, S1/S2 present, no murmurs appreciated Pulmonary: clear to auscultation bilaterally, no rales/rhonchi/wheezes Abdominal: soft, non-tender, non-distended, no rebound/guarding, normal bowel sounds present Musculoskeletal: mittens placed, normal ROM Skin: warm and dry, intact, no rashes Objective Labs 01/04/25 04:57 01/04/25 04:57 Labs: Laboratory Results - last 24 hr 12/31/24 01/03/25 01/04/25 14:58 10:15 04:57 WBC 5.5 RBC 3.23 L Hgb 9.5 L Hct 29.4 L MCV 91 MCH 29.4 MCHC 32.3 RDW Std Deviation 59.4 H Plt Count 220 Neut % (Auto) 72 Lymph % (Auto) 12 Desha % (Auto) 7 Eos % (Auto) 8 Baso % (Auto) 0 Neut # (Auto) 4.0 Lymph # (Auto) 0.7 L Desha # (Auto) 0.4 Eos # (Auto) 0.5 Baso # (Auto) 0.0 Immature Gran # (Auto) 0.07 H Absolute Nucleated RBC 0.00 Immature Gran % 1 H Nucleated RBC % 0 Sodium 141 Potassium 3.8 Chloride 113 H Carbon Dioxide 17.2 L Anion Gap 11 BUN 28 H Creatinine 1.7 H Estim Creat Clear Calc 45.8 L eGFR 45 L BUN/Creatinine Ratio 16 Glucose 77 Calculated Osmolality 285 Calcium 8.6 Corrected Calcium 9.5 Phosphorus 3.0 Magnesium 1.9 Total Bilirubin 0.5 AST 30 ALT 19 Alkaline Phosphatase 111 Total Protein 5.8 Albumin 2.9 L Globulin 2.9 Albumin/Globulin Ratio 1.0 L Vancomycin Trough 19.7 H Crossmatch See Detail ABG Interpretation ABG results: 12/31/24 21:48 VBG pH 7.38 VBG pCO2 31 L VBG pO2 40 VBG Base Excess -6 L Quality Measures Quality Measures none Assessment & Plan Assessment Current Active Medications: Generic Name Dose Route Start Last Admin Trade Name Freq PRN Reason Stop Dose Admin Acetaminophen 650 mg 12/31/24 09:59 Acetaminophen 325 Mg Tablet PO 01/30/25 09:58 Q6H PRN Fever >100.4 and/or pain Apixaban 5 mg 01/03/25 21:00 01/04/25 09:34 Apixaban 2.5 Mg Tablet PO 02/02/25 20:59 5 mg BID HANNAH Administration Atorvastatin Calcium 40 mg 01/01/25 21:00 01/03/25 21:22 Atorvastatin Calcium 20 Mg Tablet PO 01/31/25 20:59 40 mg HS HANNAH Administration Cadexomer Iodine 0 gm 01/03/25 21:00 01/03/25 22:34 Cadexomer Iodine Gel 40 Gm Tube TOP 01/10/25 20:59 Not Given HS HANNAH Doxycycline Hyclate 100 mg 01/03/25 21:00 01/04/25 09:34 Doxycycline 100 Mg Tablet PO 01/10/25 20:59 100 mg BID HANNAH Administration Fluconazole 100 mg 01/04/25 09:00 01/04/25 09:34 Fluconazole 100 Mg Tablet PO 01/17/25 08:59 100 mg QDAY HANNAH Administration Ceftriaxone Sodium 2 gm/ 50 mls @ 100 mls/hr 01/03/25 14:22 01/03/25 15:28 Sodium Chloride IV 02/10/25 12:00 100 mls/hr QDAY HANNAH Administration Metoprolol Tartrate 100 mg 01/03/25 21:00 01/04/25 09:36 Metoprolol Tartrate 25 Mg Tablet PO 02/02/25 20:59 Not Given BID HANNAH Multivitamins 1 tab 01/01/25 09:00 01/04/25 09:34 Multivitamins Tablet PO 01/31/25 08:59 1 tab QDAY HANNAH Administration Ondansetron HCl 4 mg 12/31/24 09:59 Ondansetron Inj 2 Mg/Ml Inj 2 Ml IVP 01/30/25 09:58 Q6H PRN NAUSEA OR VOMITING Protocol Pantoprazole Sodium 40 mg 12/31/24 14:30 01/04/25 09:35 Pantoprazole Inj 40 Mg Vial IVP 01/30/25 14:29 40 mg BID HANNAH Administration Sennosides 1 tab 12/31/24 09:59 Senna Tablet PO 01/30/25 09:58 QDAY PRN constipation Protocol Zinc Sulfate 220 mg 01/01/25 09:00 01/04/25 09:34 Zinc Sulfate 220 Mg Capsule PO 01/31/25 08:59 220 mg QDAY HANNAH Administration Plan Agustin Schrader is a 64-year-old male with a past medical history of CAD status post stents on Plavix, A-fib on Eliquis, CVA in 2023, UGIB secondary to esophageal ulcers, Castorena's esophagus, and chronic osteomyelitis status post spinal surgery in [place] complicated by dehiscence who is admitted for acute encephalopathy and cardiology consulted for A-fib with RVR. #A-fib with RVR on Eliquis Presents with acute encephalopathy and bright red blood in oral cavity. Initial EKG showed pulse of 123 and telemetry reviewed today and showed rate between 70s and 80s. However, initial hemoglobin of 9.3 that downtrended to 7.1. ? Metoprolol tartrate 100 mg twice daily ? Eliquis 5 mg twice daily resumed per GI #CAD status post multiple stents Follows up with Dr. Yadav outpatient. Last stent placed in 2022, so plavix is not needed. ? Home atorvastatin 40 mg #GI bleed #Acute blood loss anemia ? Recommend to keep hemoglobin > 8 given cardiac history #Acute encephalopathy #Urinary tract infection #Lactic acidosis #Starvation ketosis #History of esophageal ulcers #Castorena's esophagus #CVA 2023 #ARIA on CKD #Chronic osteomyelitis ? Continue management per primary team ----- Plan discussed with attending physician Dr. Neil Gifford MD PGY-2 Internal Medicine
--- NOTE | 2025-01-04 13:49 | PD.RESDS ---
Planned Discharge Date 01/04/25 DS: Providers Provider Date of admission: 12/31/24 09:59 Primary care physician: Christine Kay MD Admitting Provider: Suzanna Bellamy DO Attending Provider on Admission: Suzanna Bellamy DO Consults: 12/31/24 14:26 Consult to Gastroenterology Routine Comment: Consulting Provider: aNdia Claros 12/31/24 14:50 Referral Wound Care Routine Comment: 12/31/24 17:00 Referral Registered Dietitian Routine Comment: [facility] Referral - Knowledge Deficit Routine Comment: Positive screening for knowledge deficit needs. 01/01/25 09:59 Consult to Cardiology Routine Comment: Consulting Provider: Tl Trejo 01/02/25 08:00 Referral Speech Therapy Urgent Comment: 01/03/25 10:15 Consult to Infectious Diseases Routine Comment: Osteomyelitis Consulting Provider: Charles Tapia Attending Provider on DC: Suzanna Bellamy DO Discharging Provider: Suzanna Bellamy DO DS: Diagnosis Problem List Completed Was Problem List Reviewed/Reconciled?: Yes Hospital Course Hospital Course Hospital course: Summary: Agustin Schrader 64M pmhx significant for A-fib on Eliquis, CAD s/p multiple stents on Plavix, CVA wheelchair bound, CKD stage IIIb, Castorena's esophagus, hx of UGIB and esophageal ulcers, chronic osteomyelitis of the T11-T12 spine s/p debridement and currently on oral abx, who presented to [facility] ED on 12/31 from SNF due to altered mental status, oral bleeding and atrial fibrillation RVR, admitted for acute post hemorrhagic anemia, acute on chronic encephalopathy 2/2 UTI vs lactic acidosis vs starvation ketosis, atrial fibrillation RVR and ARIA on CKDIIIb. Patient presented with 1-2 days of confusion at SNF, per alert and conversional two days ago, however endorses decreased oral intake with at least one episode of hematemesis. Previously presented on 12/15 for altered mental status secondary to urinary retention, however in ED, [place] catheter in place. On admission, hemoglobin 7.1 and noted crusted blood on mouth and lips and was transfused 1 PRBC on 01/01. Patient had EGD done 12/17 which showed esophageal ulcers. Esophagus and gastritis. Patient was treated with fluids and underwent EGD on 01/02 which showed esophageal ulcers, subcutaneous mucosal changes consistent with Castorena's esophagus, gastritis and erythematous duodenopathy. Per GI, no colonoscopy at this time. Furthermore, admission patient presented with atrial fibrillation RVR likely secondary to acute posthemorrhagic anemia. Resolved with amiodarone drip and controlled with just metoprolol on discharge. Per cardiology, continue Eliquis and discontinue Plavix as patient's last stent was placed over a year ago. Patient was also found to be hyponatremic with ARIA on CKD stage IIIb, treated with gentle IVF. Urine culture grew yeast and patient was treated with fluconazole. 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 On previous admission on 12/15 he was discharged with 8-week course of p.o. antibiotics with doxycycline levofloxacin as patient has previously pulled out a PICC line. ID was consulted and patient will be discharged with oral doxycycline and Keflex. On discharge, patient is hemodynamically stable, alert and oriented x 2 at baseline and patient is ready to be discharged back to SNF. Imagin/27 KUB: mild small bowel ileus Renal US: moderate scarring of R kidney, L not visualized Discharge Recommendations: - Please take all medications as prescribed - START fluconazole 100 mg daily for 6 more days ending on 01/10/25 - Continue doxycycline 100 mg twice daily and Keflex until 02/12/25 - Discontinue levofloxacin as it was switched to Keflex - Discontine Plavix as your stent was placed >1 year ago - Continue metoprolol tartrate 100 mg twice daily and Eliquis 5 mg twice daily - Continue all home medications - Wound care instructions as below and follow up with your already established wound care - Please follow up with your PCP within one week of discharge - If your symptoms worsen, please seek immediate medical attention and return to your nearest emergency room. Wound Care: -Stage 4 to medial upper back: irrigate well with NS, pat dry. Fill wound bed with iodosorb gel. Skin prep to wound edges and secure with allyven dressing daily and PRN for falling off or saturating. Side to side repositioning with offloading over mid back and sacrum (no pillows or wedges over wound sites please). Negative heel pressure bilaterally No briefs - Stage 3 scattered over sacrum: cleanse well with NS, pat dry. Apply calcium alginate to wound bed. Skin prep to wound edges and secure with allevyn dressings daily and PRN for falling off or soiling. 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 Bellamy, and PGY-3 Dr. Paulino. Yohana Torres, DO Internal Medicine, PGY-1 Time Spent with Patient Time attestation: Total time spent providing and/or coordinating discharge services: Time spent: Greater than 30 minutes Exam Vital Signs Temp Pulse Resp BP Pulse Ox O2 Del Method O2 Flow Rate 97.6 F 78 17 112/68 100 Room Air 3 01/04/25 08:00 01/04/25 12:00 01/04/25 08:00 01/04/25 09:36 01/04/25 08:00 01/04/25 08:00 01/02/25 18:15 Narrative Exam GENERAL: alert and oriented x2 to name and place, no acute distress HEENT: mucous membranes dry, bilateral sclera anicteric CARDIOVASCULAR: regular rate, irregular rhythm, S1/S2 present, no murmurs appreciated PULMONARY: clear to auscultation bilaterally, no rales/rhonchi/wheezes ABDOMINAL: soft, non-tender, non-distended, no rebound/guarding, bowel sounds present EXTREMITIES: no peripheral edema SKIN: warm and dry, no rashes, +stage IV pressure ulcer at lower thoracic region with bone showing, non purulent and non erythematous. NEURO: CN II-XII grossly intact, following commands Discharge Plan Plan Patient Disposition: Xfer Skilled Nsg Fac (SNF) Care Plan Goals: - Please take all medications as prescribed - START fluconazole 100 mg daily for 6 more days ending on 01/10/25 - Continue doxycycline 100 mg twice daily and Keflex until 02/12/25 - Discontinue levofloxacin as it was switched to Keflex - Discontine Plavix as your stent was placed >1 year ago - Continue metoprolol tartrate 100 mg twice daily and Eliquis 5 mg twice daily - Continue all home medications - Wound care instructions as below and follow up with your already established wound care - Please follow up with your PCP within one week of discharge - If your symptoms worsen, please seek immediate medical attention and return to your nearest emergency room. - If you do not have a PCP, you may follow up at the [facility] at [address] [place] [address] [address], [facility] [address], [address]) Wound care: -Stage 4 to medial upper back: irrigate well with NS, pat dry. Fill wound bed with iodosorb gel. Skin prep to wound edges and secure with allyven dressing daily and PRN for falling off or saturating. Side to side repositioning with offloading over mid back and sacrum (no pillows or wedges over wound sites please). Negative heel pressure bilaterally No briefs - Stage 3 scattered over sacrum: cleanse well with NS, pat dry. Apply calcium alginate to wound bed. Skin prep to wound edges and secure with allevyn dressings daily and PRN for falling off or soiling. Prescriptions/Referrals Prescriptions/Med Rec: New fluconazole 100 mg Tablet 100 mg PO QDAY 6 Days Qty: 6 0RF cephalexin 500 mg capsule 500 mg PO QID 37 Days Qty: 148 0RF Continued Eliquis 5 mg tablet 5 mg PO BID Qty: 30 0RF losartan 25 mg Tablet 25 mg PO QDAY 30 Days Qty: 30 0RF metoprolol tartrate 100 mg tablet 100 mg PO BID 30 Days Qty: 60 0RF isosorbide mononitrate 30 mg Tablet Extended Release 24 Hr 60 mg PO QDAY doxycycline hyclate 100 mg Tablet 100 mg PO BID 56 Days Qty: 112 0RF Rx Instructions: To complete regimen on 02/12/2025 - eight week course ascorbic acid (vitamin C) [Vitamin C] 250 mg Tablet 500 mg PO BID 30 Days Qty: 120 0RF multivitamin with folic acid [Tab-A-Lissette] 400 mcg Tablet 1 tab PO QDAY 30 Days Qty: 30 0RF zinc sulfate 50 mg zinc (220 mg) Capsule 220 mg PO QDAY 20 Days Qty: 88 0RF pantoprazole 40 mg Tablet,Delayed Release (Dr/Ec) 40 mg PO BID Qty: 30 0RF acetaminophen 325 mg tablet 650 mg PO Q4H PRN (Reason: pain) atorvastatin 40 mg tablet 40 mg PO HS Discontinued levofloxacin 750 mg tablet 750 mg PO QDAY Qty: 47 0RF clopidogrel 75 mg Tablet 75 mg PO QDAY Referrals: Christine Kay MD [Primary Care Provider] Patient/Caregiver Discharge Instructions Other Discharge Activity Instructions:: - Please take all medications as prescribed - START fluconazole 100 mg daily for 6 more days ending on 01/10/25 - Continue doxycycline 100 mg twice daily and Keflex until 02/12/25 - Discontinue levofloxacin as it was switched to Keflex - Discontinue Plavix as your stent was placed >1 year ago - Continue metoprolol tartrate 100 mg twice daily and Eliquis 5 mg twice daily - Continue all home medications - Wound care instructions as below and follow up with your already established wound care - Please follow up with your PCP within one week of discharge - If your symptoms worsen, please seek immediate medical attention and return to your nearest emergency room. - If you do not have a PCP, you may follow up at the [facility] at [facility] [address], [facility] [address], 1) Wound care: -Stage 4 to medial upper back: irrigate well with NS, pat dry. Fill wound bed with iodosorb gel. Skin prep to wound edges and secure with allyven dressing daily and PRN for falling off or saturating. Side to side repositioning with offloading over mid back and sacrum (no pillows or wedges over wound sites please). Negative heel pressure bilaterally No briefs - Stage 3 scattered over sacrum: cleanse well with NS, pat dry. Apply calcium alginate to wound bed. Skin prep to wound edges and secure with allevyn dressings daily and PRN for falling off or soiling. Education Materials: Bleeding Gastrointestinal, AFL/Afib Print Language: Serbian Stand Alone Forms: Caterina Award Info., Patient Portal Info Letter Quality Discharge Quality Measures VTE prophylaxis
--- NOTE | 2025-01-04 14:54 | PD.RESPRO ---
Documentation for date of: 01/04/25 Senior resident attestation: Patient evaluated and examined at the bedside, plan of care discussed with rest of the team including my attending physician, except as noted. Patient is a 64-year-old male with a past medical history of coronary artery disease on Plavix, A-fib on Eliquis, history of Castorena's esophagitis and history of upper GI bleed, who manage in the ER for altered mental status, found to have dried up blood around his and tachycardia. Patient was admitted for A-fib RVR, hematemesis/upper GI bleed and acute encephalopathy. Also found to have UTI and high anion gap metabolic acidosis. Patient had poor IV access, unable to obtain iv line, requiring blood transfusion, due to acute blood loss anemia, central line was placed by IR for IV access. # UTI- history of prior UTI with Enterococcus, now positive with yeast, fluconazole 100 mg daily for 7 days. Patient has chronic indwelling Tinoco's catheter. # Chronic Vertebral Osteomyelitis- On previous admission, pt was discharged with 8-week course of p.o. antibiotics of doxycycline and levofloxacin as he had pulled the PICC line, for total of 8 weeks for chronic osteomyelitis, End date of 02/12/2025; repeat imaging of spine to reassess after 6 weeks. ID recommended IV antibiotics. # GI bleed- previous history of Castorena's esophagitis, EGD 01/02 showed esophageal ulcers gastritis Castorena's esophagus and erythematous duodenopathy, GI recommended advancing diet as tolerated. # A-fib RVR- cardiology was consulted for A-fib with RVR, Eliquis was initially held in the setting of GI bleed. was on Amiodarone 200mg, now discontinued, per cardiology conitnue metoprolol tartarate 100mg Bid. Eliquis resumed after Cardio and GI recs and negative EGD for active bleeding. Quresh PGY3 Subjective Subjective Interval history: No acute overnight events. Patient seen examined at bedside. Patient alert and oriented x [address] Able to follow commands. Endorses mild back pain. Labs and vitals reviewed. SBP 140s to 150s. Telemetry shows atrial fibrillation rate controlled. Hemoglobin stable 9.5, sodium 141, chloride 130, bicarb 17, Cr 1.7. Continue fluconazole for 6 more days per ID. Continue doxycycline and ceftriaxone while in hospital plan to transition to doxycycline and Keflex outpatient for cardiac osteomyelitis. Continue metoprolol titrate 100 mg twice daily as blood pressure tolerates, Eliquis 5 mg twice daily and statin 40 mg. Discontinue Plavix as stent was placed more than 1 year ago per cardiology. Exam Vital Signs Temp Pulse Resp BP Pulse Ox O2 Del Method O2 Flow Rate 97.9 F 75 14 121/71 100 Room Air 3 01/04/25 12:00 01/04/25 12:00 01/04/25 12:00 01/04/25 12:00 01/04/25 12:00 01/04/25 12:00 01/02/25 18:15 Narrative Exam GENERAL: alert and oriented x2 to name and place, no acute distress HEENT: mucous membranes dry, bilateral sclera anicteric CARDIOVASCULAR: regular rate, irregular rhythm, S1/S2 present, no murmurs appreciated PULMONARY: clear to auscultation bilaterally, no rales/rhonchi/wheezes ABDOMINAL: soft, non-tender, non-distended, no rebound/guarding, bowel sounds present EXTREMITIES: no peripheral edema SKIN: warm and dry, no rashes, +stage IV pressure ulcer at lower thoracic region with bone showing, non purulent and non erythematous. NEURO: CN II-XII grossly intact, following commands Objective Labs 01/05/25 04:45 01/05/25 04:45 Labs: Laboratory Results - last 24 hr 12/31/24 01/04/25 14:58 04:57 WBC 5.5 RBC 3.23 L Hgb 9.5 L Hct 29.4 L MCV 91 MCH 29.4 MCHC 32.3 RDW Std Deviation 59.4 H Plt Count 220 Neut % (Auto) 72 Lymph % (Auto) 12 [place] % (Auto) 7 Eos % (Auto) 8 Baso % (Auto) 0 Neut # (Auto) 4.0 Lymph # (Auto) 0.7 L [place] # (Auto) 0.4 Eos # (Auto) 0.5 Baso # (Auto) 0.0 Immature Gran # (Auto) 0.07 H Absolute Nucleated RBC 0.00 Immature Gran % 1 H Nucleated RBC % 0 Sodium 141 Potassium 3.8 Chloride 113 H Carbon Dioxide 17.2 L Anion Gap 11 BUN 28 H Creatinine 1.7 H Estim Creat Clear Calc 45.8 L eGFR 45 L BUN/Creatinine Ratio 16 Glucose 77 Calculated Osmolality 285 Calcium 8.6 Corrected Calcium 9.5 Phosphorus 3.0 Magnesium 1.9 Total Bilirubin 0.5 AST 30 ALT 19 Alkaline Phosphatase 111 Total Protein 5.8 Albumin 2.9 L Globulin 2.9 Albumin/Globulin Ratio 1.0 L Crossmatch See Detail ABG Interpretation ABG results: 12/31/24 21:48 VBG pH 7.38 VBG pCO2 31 L VBG pO2 40 VBG Base Excess -6 L Quality Measures Quality Measures none Assessment & Plan Assessment Current Active Medications: Generic Name Dose Route Start Last Admin Trade Name Freq PRN Reason Stop Dose Admin Acetaminophen 650 mg 12/31/24 09:59 Acetaminophen 325 Mg Tablet PO 01/30/25 09:58 Q6H PRN Fever >100.4 and/or pain Apixaban 5 mg 01/03/25 21:00 01/04/25 09:34 Apixaban 2.5 Mg Tablet PO 02/02/25 20:59 5 mg BID HANNAH Administration Atorvastatin Calcium 40 mg 01/01/25 21:00 01/03/25 21:22 Atorvastatin Calcium 20 Mg Tablet PO 01/31/25 20:59 40 mg HS HANNAH Administration Cadexomer Iodine 0 gm 01/03/25 21:00 01/03/25 22:34 Cadexomer Iodine Gel 40 Gm Tube TOP 01/10/25 20:59 Not Given HS HANNAH Citric Acid/Sodium Citrate 30 ml 01/05/25 09:00 Citric Acid/Sodium Citr 15 Ml Udc (Bicitra) PO 02/04/25 08:59 QDAY HANNAH Doxycycline Hyclate 100 mg 01/03/25 21:00 01/04/25 09:34 Doxycycline 100 Mg Tablet PO 01/10/25 20:59 100 mg BID HANNAH Administration Fluconazole 100 mg 01/04/25 09:00 01/04/25 09:34 Fluconazole 100 Mg Tablet PO 01/17/25 08:59 100 mg QDAY HANNAH Administration Ceftriaxone Sodium 2 gm/ 50 mls @ 100 mls/hr 01/03/25 14:22 01/04/25 11:55 Sodium Chloride IV 02/10/25 12:00 Not Given QDAY HANNAH Metoprolol Tartrate 100 mg 01/03/25 21:00 01/04/25 09:36 Metoprolol Tartrate 25 Mg Tablet PO 02/02/25 20:59 Not Given BID HANNAH Multivitamins 1 tab 01/01/25 09:00 01/04/25 09:34 Multivitamins Tablet PO 01/31/25 08:59 1 tab QDAY HANNAH Administration Ondansetron HCl 4 mg 12/31/24 09:59 Ondansetron Inj 2 Mg/Ml Inj 2 Ml IVP 01/30/25 09:58 Q6H PRN NAUSEA OR VOMITING Protocol Pantoprazole Sodium 40 mg 12/31/24 14:30 01/04/25 09:35 Pantoprazole Inj 40 Mg Vial IVP 01/30/25 14:29 40 mg BID HANNAH Administration Sennosides 1 tab 12/31/24 09:59 Senna Tablet PO 01/30/25 09:58 QDAY PRN constipation Protocol Zinc Sulfate 220 mg 01/01/25 09:00 01/04/25 09:34 Zinc Sulfate 220 Mg Capsule PO 01/31/25 08:59 220 mg QDAY HANNAH Administration Plan Agustin Schrader 64M pmhx significant for A-fib on Eliquis, CAD s/p multiple stents on Plavix, CVA wheelchair bound, CKD stage IIIb, Castorena's esophagus, hx of UGIB and esophageal ulcers, chronic osteomyelitis of the T11-T12 spine s/p debridement and currently on oral abx, who presented to [facility] ED on 12/31 from [facility] due to altered mental status, oral bleeding and atrial fibrillation RVR. #Acute on chronic Encephalopathy, metabolic vs infectious #UTI #Lactic acidosis #Starvation ketosis Presented with 1-2 days of AMS at SNF, per alert and conversional two days ago, however endorses decreased PO intake. Previously presented on 12/15 for altered mental status secondary to urinary retention, however in ED, Tinoco catheter in place. Bicarb 16.9, lactic acid 2.7->1.8, BHB 1.3->1.1. UA turbid, 1+ protein, 1+ ketone, 3+ blood, +LE, 141 RBC, 456 WBC, yeast present. s/p 2L NS total boluses in ED. UCx grew yeast 01/01 KUB: mild small bowel ileus Ddx: sepsis 2/2 UTI vs starvation ketosis 2/2 poor PO intake Plan: - Fluconazole 100 mg QD for another 6 to days (end 01/10) - D5W at 100 cc/hr - Avoid sedating agents - MORNING BABYSITTER consulted, recs appreciated: passed swallow, PUD diet - Central line to be removed today as patient cleared by MORNING BABYSITTER #Chronic osteomyelitis Longstanding history of stage IV ulcer at T11-T12 with history of debridement and on long-term antibiotics. On previous admission on 12/15, discharged with 8-week course of p.o. antibiotics of doxycycline and levofloxacin as patient pulled the PICC line. Vancomycin (12/31-01/03) Plan: - Cefepime (12/31- and Doxycycline (01/03- - Wound care consulted - ID consulted, recs appreciated #Acute post hemorrhagic anemia s/p 1 pRBC 01/01 #Upper GIB #Hematemasis #Hx of esophageal ulcers #Castorena's esophagus Presented with at least one episode of hematemasis, dried crusted blood on lips. Unknown how many episodes occurred. Hgb 9.3, increased from last admission. No history of cirrhosis per imaging. 12/17 EGD esophageal ulcers, esophageal mucosal changes consistent segment Castorena's esophagus, gastritis 01/01, Hgb 7.1 with red blood noted in mouth and on lips Ddx: Esophageal ulcer bleed vs Irma gupta tear vs gastric ulcer bleeds 01/02 EGD esophageal ulcers, subcu mucosal changes consistent with Castorena's esophagus, gastritis, erythematous duodenopathy Plan: - GI consulted, recs appreciated: PUD diet, no need for colonoscopy at this time - Transfuse is Hgb <8 - IV pantoprazole 40 mg BID #Atrial fibrillation RVR, resolved #Hx atrial fibrillation on Eliquis #CAD s/p multiple stents #HTN #Hx CVA on Plavix Longstanding history of atrial fibrillation, 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 Home medications include atorvastatin 40 mg daily, Eliquis 5 mg twice daily, metoprolol tartrate 100 mg twice daily, losartan 25 mg daily. s/p initiation of dilt drip in ED, however SBP 79 and transitioned to amio drip. Plan: - Resume home metoprolol tartrate 100 mg BID and atorvastatin 40 mg qhs - Continue holding home losartan iso soft BP - Discontinue amiodarone IV per cardiology - Home Eliquis 5 mg BID per cardiology and GI - Cardiology consulted, recs appreciated: Discontinue Plavix as patient last stent was >1 year ago #Hypernatremia #Hyperchloremia #Hypomagnesemia On 12/31, Na 146 and steadily increasing. Likely 2/2 volume depletion from dehydration vs GIB. Plan: - D5W 100cc/hr with goal 24h Na reduction by 8-10 mMol/L - F/u afternoon Na - Recheck and replete as necessary #ARIA on CKDIIIb #Hx of Enterococcus UTI On admission, creatinine 2.2, BL 1.4-1.5. Likely 2/2 UTI vs lactic acidosis vs dehydration/poor p.o. intake. Renal US: moderate scarring of R kidney, L not visualized Plan: - Gentle IVF as above - Renally dose and avoid nephrotoxic medications Hospital management: Lines: PIV Diet: NPO Bowel: Senna prn GI prophylaxis: IV pantoprazole 40 mg BID DVT prophylaxis: SCDs iso GIB Disposition: tele, EGD pending CODE STATUS: FULL CODE Plan of care discussed with attending Dr. Bellamy, and PGY-3 Dr. Paulino. Yohana Torres DO PGY-1 Internal Medicine Attending Provider Attestation/Addendum Pearl, Suzanna Bellamy DO, attest that I was physically present for the umanzor portions of the service and evaluated the patient with the resident and I reviewed and discussed the case with the resident and agree with the resident's findings and plans of care as documented above Patient seen and eval this a.m. He remains at baseline mental status. No acute events overnight. Patient has been unable to keep any IV lines due to itching. PGY1 had discussed with over the phone regarding difficulty keeping peripheral lines. She is understanding as this had happened on previous admission and was last switched to oral antibiotics. is agreeable to continuing oral antibiotics at this time. Due to yeast found on cultures, will continue with fluconazole 100 mg daily x 7 days. Anticipate discharge in the next 24 hours as patient remains on mittens at this time. He is otherwise cooperative. Continue with current management. H&H has been stable and patient is hemodynamic stable.
--- NOTE | 2025-01-04 15:00 | PC.NURSE ---
Mittens removed at 1500
--- NOTE | 2025-01-04 15:16 | PC.SS ---
SS spoke to Noemi from [facility] who confirmed with Samanta the weatherization administrator from [facility] they are unable to accept pt with mitten restraints. Samanta is aware pt is on mitten restraints due to pulling on his lines. Pt requires to be off mitten restraints for 24 hours. [facility] nurse is aware. Pt is aware.
[2025-01-04] MEDS: ATORVASTATIN CALCIUM 20 MG TABLET 40 MG PO (20:25)
--- NOTE | 2025-01-04 20:26 | PD.IMPROG ---
Documentation for date of: 01/04/25 Subjective Subjective Interval history: Patient evaluated hemoglobin hematocrit 9.5 and 29.4 Exam Vital Signs Temp Pulse Resp BP Pulse Ox O2 Del Method O2 Flow Rate 97.6 F 80 17 96/66 100 Room Air 3 01/04/25 16:00 01/04/25 20:23 01/04/25 16:00 01/04/25 20:23 01/04/25 16:00 01/04/25 16:00 01/02/25 18:15 Objective Labs 01/04/25 04:57 01/04/25 04:57 Labs: Laboratory Results - last 24 hr 01/04/25 04:57 WBC 5.5 RBC 3.23 L Hgb 9.5 L Hct 29.4 L MCV 91 MCH 29.4 MCHC 32.3 RDW Std Deviation 59.4 H Plt Count 220 Neut % (Auto) 72 Lymph % (Auto) 12 [place] % (Auto) 7 Eos % (Auto) 8 Baso % (Auto) 0 Neut # (Auto) 4.0 Lymph # (Auto) 0.7 L [place] # (Auto) 0.4 Eos # (Auto) 0.5 Baso # (Auto) 0.0 Immature Gran # (Auto) 0.07 H Absolute Nucleated RBC 0.00 Immature Gran % 1 H Nucleated RBC % 0 Sodium 141 Potassium 3.8 Chloride 113 H Carbon Dioxide 17.2 L Anion Gap 11 BUN 28 H Creatinine 1.7 H Estim Creat Clear Calc 45.8 L eGFR 45 L BUN/Creatinine Ratio 16 Glucose 77 Calculated Osmolality 285 Calcium 8.6 Corrected Calcium 9.5 Phosphorus 3.0 Magnesium 1.9 Total Bilirubin 0.5 AST 30 ALT 19 Alkaline Phosphatase 111 Total Protein 5.8 Albumin 2.9 L Globulin 2.9 Albumin/Globulin Ratio 1.0 L Impressions Impression: Upper GI bleed Multiple mid and distal esophageal ulcers Continue Protonix continue to monitor CBC ABG Interpretation ABG results: 12/31/24 21:48 VBG pH 7.38 VBG pCO2 31 L VBG pO2 40 VBG Base Excess -6 L Assessment & Plan A&P Narrative here for other reasons. chronic tenorio noted. ua abn and worse than earlier this month. about as many rbc as wbc so may need urology eval while here ok to finish rocephin and doxy on 02/10 and add flucon 100mg po q day for 7d. this is likely the result of prior abx though. as well as the chronic tenorio Time Spent With Patient Time: Total time spent is greater than 50% in coordination of care (as documented) at patient's floor/unit and/or counseling patient:
[2025-01-05] VITALS: BP 108/75; PULSE 108; PULSE 96; RESP 17; TEMP 36.8; O2SAT 100
[2025-01-05 04:00] VITALS: BP 90/59; PULSE 86; PULSE 99; RESP 18; TEMP 36.3; O2SAT 99
[2025-01-05 06:00] VITALS: BMI 29.7
[2025-01-05 06:10] LABS: Basophils # (Auto) 0.0 Thou/mm3 (0.0-0.2); Basophils % (Auto) 0 % (0-2.5); Eosinophils # (Auto) 0.3 Thou/mm3 (0.0-0.5); Eosinophils % (Auto) 5 % (0-10); Hematocrit 28.1 % (41.0-53.0); Hemoglobin 9.0 g/dL (13.5-16.0); Immature Granulocytes Auto 0.05 Thou/mm3 (0.00-0.00); Lymphocytes # (Auto) 0.6 Thou/mm3 (1.0-4.8); Lymphocytes % (Auto) 11 % (10-50); Mean Corpuscular HGB Conc 32.0 g/dl (31.0-37.0); Mean Corpuscular Hemoglobin 29.3 pg (25.0-35.0); Mean Corpuscular Volume 92 fL (80-100); Monocytes # (Auto) 0.4 Thou/mm3 (0.0-0.8); Monocytes % (Auto) 7 % (0-12); Neutrophils # (Auto) 3.7 Thou/mm3 (1.8-7.7); Neutrophils % (Auto) 75 % (37-80); Nucleated Red Blood Cell # 0.00 Thou/mm3 (0.00-0.00); Nucleated Red Blood Cell % 0 /100 WBC (0); Platelet Count 174 Thou/mm3 (140-440); RDW Standard Deviation 61.2 fL (35.1-43.9); Red Blood Count 3.07 Miln/mm3 (4.50-5.90); White Blood Count 4.9 Thou/mm3 (3.8-10.6)
[2025-01-05 06:33] LABS: Alanine Aminotransferase 17 U/L (10-49); Albumin, Serum 2.5 gm/dL (3.4-4.8); Albumin/Globulin Ratio 1.0 (1.2-2.2); Alkaline Phosphatase 104 U/L (46-116); Anion Gap 12 (7-16); Aspartate Amino Transferase 23 U/L (0-34); BUN/Creatinine Ratio 16 Ratio (12-20); Bilirubin,Total 0.5 mg/dL (0.3-1.2); Blood Urea Nitrogen 31 mg/dL (9-23); Calcium 8.6 mg/dL (8.3-10.6); Calcium (Corrected) 9.8 mg/dL (8.5-10.1); Carbon Dioxide 16.8 mMol/L (20.0-31.0); Chloride 113 mMol/L (98-107); Creatinine (Component) 1.9 mg/dL (0.6-1.3); Estimated Creatinine Clearance 41.0 mL/min (>60); Globulin 2.6 gm/dL (2.3-3.5); Glucose 80 mg/dL (74-106); Magnesium 1.7 mg/dL (1.6-2.6); Osmolality,Calculated 288 (275-295); Phosphorous 3.0 mg/dL (2.4-5.1); Potassium 3.6 mMol/L (3.4-5.1); Sodium 142 mMol/L (136-145); Total Protein 5.1 gm/dL (5.7-8.2); eGFR 39 See Note
[2025-01-05] MEDS: CADEXOMER IODINE GEL 40 GM TUBE TOP (06:35)
[2025-01-05 08:00] VITALS: BP 104/71; PULSE 89; RESP 21; TEMP 36.3; O2SAT 100
[2025-01-05] MEDS: CITRIC ACID/SODIUM CITR 15 ML UDC (BICITRA) 30 ML PO (08:59)
[2025-01-05] MEDS: ZINC SULFATE 220 MG CAPSULE PO (08:59)
[2025-01-05 09:00] VITALS: BP 104/71; PULSE 89
[2025-01-05] MEDS: FLUCONAZOLE 100 MG TABLET PO (09:01)
[2025-01-05] MEDS: APIXABAN 2.5 MG TABLET 5 MG PO (09:01)
[2025-01-05] MEDS: DOXYCYCLINE 100 MG TABLET PO (09:02)
[2025-01-05] MEDS: MULTIVITAMINS TABLET 1 TAB PO (09:02)
--- NOTE | 2025-01-05 09:49 | ESPR_ITS ---
<Statement entered by Tl Trejo MD - 01/06/25 12:15> I personally examined and evaluated the patient with resident physician PGY 2 Dr[address] Giuliano Gifford patient doing clinically well A-fib rate controlled well recommend continuing medical management including metoprolol for rate control Eliquis restarted no active bleeding. Will monitor the patient as an outpatient. Documentation for date of: 01/05/25 Subjective Subjective Interval history: No acute overnight events. Seen and examined at bedside and patient resting comfortably in bed. Plans for discharge today back to SNF. Per GI, resumed Eliquis and also resumed home metoprolol for rate control for his atrial fibrillation. Exam Vital Signs Temp Pulse Resp BP Pulse Ox O2 Del Method O2 Flow Rate 97.3 F 89 21 H 104/71 100 Room Air 3 01/05/25 08:00 01/05/25 09:00 01/05/25 08:00 01/05/25 09:00 01/05/25 08:00 01/05/25 08:00 01/02/25 18:15 Narrative Exam General: chronically ill appearing, mentation waxes and wanes, no acute distress HEENT: bright red blood on lips, NC/AT, mucous membranes moist, bilateral sclera anicteric Cardiovascular: irregular rhythm, normal rate, S1/S2 present, no murmurs appreciated Pulmonary: clear to auscultation bilaterally, no rales/rhonchi/wheezes Abdominal: soft, non-tender, non-distended, no rebound/guarding, normal bowel sounds present Musculoskeletal: mittens placed, normal ROM Skin: warm and dry, intact, no rashes Objective Labs 01/05/25 04:45 01/05/25 04:45 Labs: Laboratory Results - last 24 hr 01/05/25 04:45 WBC 4.9 RBC 3.07 L Hgb 9.0 L Hct 28.1 L MCV 92 MCH 29.3 MCHC 32.0 RDW Std Deviation 61.2 H Plt Count 174 D Neut % (Auto) 75 Lymph % (Auto) 11 Iron % (Auto) 7 Eos % (Auto) 5 Baso % (Auto) 0 Neut # (Auto) 3.7 Lymph # (Auto) 0.6 L Iron # (Auto) 0.4 Eos # (Auto) 0.3 Baso # (Auto) 0.0 Immature Gran # (Auto) 0.05 H Absolute Nucleated RBC 0.00 Immature Gran % 1 H Nucleated RBC % 0 Sodium 142 Potassium 3.6 Chloride 113 H Carbon Dioxide 16.8 L Anion Gap 12 BUN 31 H Creatinine 1.9 H Estim Creat Clear Calc 41.0 L eGFR 39 L BUN/Creatinine Ratio 16 Glucose 80 Calculated Osmolality 288 Calcium 8.6 Corrected Calcium 9.8 Phosphorus 3.0 Magnesium 1.7 Total Bilirubin 0.5 AST 23 ALT 17 Alkaline Phosphatase 104 Total Protein 5.1 L Albumin 2.5 L Globulin 2.6 Albumin/Globulin Ratio 1.0 L ABG Interpretation ABG results: 12/31/24 21:48 VBG pH 7.38 VBG pCO2 31 L VBG pO2 40 VBG Base Excess -6 L Quality Measures Quality Measures none Assessment & Plan Assessment Current Active Medications: Generic Name Dose Route Start Last Admin Trade Name Freq PRN Reason Stop Dose Admin Acetaminophen 650 mg 12/31/24 09:59 Acetaminophen 325 Mg Tablet PO 01/30/25 09:58 Q6H PRN Fever >100.4 and/or pain Apixaban 5 mg 01/03/25 21:00 01/05/25 09:01 Apixaban 2.5 Mg Tablet PO 02/02/25 20:59 5 mg BID HANNAH Administration Atorvastatin Calcium 40 mg 01/01/25 21:00 01/04/25 20:25 Atorvastatin Calcium 20 Mg Tablet PO 01/31/25 20:59 40 mg HS HANNAH Administration Cadexomer Iodine 0 gm 01/03/25 21:00 01/05/25 06:35 Cadexomer Iodine Gel 40 Gm Tube TOP 01/10/25 20:59 40 gm HS HANNAH Administration Citric Acid/Sodium Citrate 30 ml 01/05/25 09:00 01/05/25 08:59 Citric Acid/Sodium Citr 15 Ml Udc (Bicitra) PO 02/04/25 08:59 30 ml QDAY HANNAH Administration Doxycycline Hyclate 100 mg 01/03/25 21:00 01/05/25 09:02 Doxycycline 100 Mg Tablet PO 01/10/25 20:59 100 mg BID HANNAH Administration Fluconazole 100 mg 01/04/25 09:00 01/05/25 09:01 Fluconazole 100 Mg Tablet PO 01/17/25 08:59 100 mg QDAY HANNAH Administration Ceftriaxone Sodium 2 gm/ 50 mls @ 100 mls/hr 01/03/25 14:22 01/05/25 09:02 Sodium Chloride IV 02/10/25 12:00 Not Given QDAY HANNAH Metoprolol Tartrate 100 mg 01/04/25 15:05 01/05/25 09:00 Metoprolol Tartrate 25 Mg Tablet PO 02/02/25 20:59 Not Given BID HANNAH Multivitamins 1 tab 01/01/25 09:00 01/05/25 09:02 Multivitamins Tablet PO 01/31/25 08:59 1 tab QDAY HANNAH Administration Ondansetron HCl 4 mg 12/31/24 09:59 Ondansetron Inj 2 Mg/Ml Inj 2 Ml IVP 01/30/25 09:58 Q6H PRN NAUSEA OR VOMITING Protocol Pantoprazole Sodium 40 mg 12/31/24 14:30 01/05/25 09:02 Pantoprazole Inj 40 Mg Vial IVP 01/30/25 14:29 Not Given BID HANNAH Sennosides 1 tab 12/31/24 09:59 Senna Tablet PO 01/30/25 09:58 QDAY PRN constipation Protocol Zinc Sulfate 220 mg 01/01/25 09:00 01/05/25 08:59 Zinc Sulfate 220 Mg Capsule PO 01/31/25 08:59 220 mg QDAY HANNAH Administration Plan Agustin Schrader is a 64-year-old male with a past medical history of CAD status post stents on Plavix, A-fib on Eliquis, CVA in 2023, UGIB secondary to esophageal ulcers, Castorena's esophagus, and chronic osteomyelitis status post spinal surgery in [place] complicated by dehiscence who is admitted for acute encephalopathy and cardiology consulted for A-fib with RVR. #A-fib with RVR on Eliquis Presents with acute encephalopathy and bright red blood in oral cavity. Initial EKG showed pulse of 123 and telemetry reviewed today and showed rate between 70s and 80s. However, initial hemoglobin of 9.3 that downtrended to 7.1. ? Metoprolol tartrate 100 mg twice daily ? Eliquis 5 mg twice daily resumed per GI #CAD status post multiple stents Follows up with Dr. Yadav outpatient. Last stent placed in 2022, so plavix is not needed. ? Home atorvastatin 40 mg #GI bleed #Acute blood loss anemia ? Recommend to keep hemoglobin > 8 given cardiac history #Acute encephalopathy #Urinary tract infection #Lactic acidosis #Starvation ketosis #History of esophageal ulcers #Castorena's esophagus #CVA 2023 #ARIA on CKD #Chronic osteomyelitis ? Continue management per primary team ----- Plan discussed with attending physician Dr. Neil Gifford MD PGY-2 Internal Medicine
[2025-01-05 12:00] VITALS: BP 125/67; PULSE 85; PULSE 88; RESP 14; TEMP 36.3; O2SAT 99
--- NOTE | 2025-01-05 13:21 | ESDS_ITS ---
<Statement entered by Suzanna Bellamy DO - 01/08/25 07:21> I, Suzanna Bellamy DO, attest that I was physically present for the umanzor portions of the service and evaluated the patient with the resident and I reviewed and discussed the case with the resident and agree with the resident's findings and plans of care as documented above Planned Discharge Date 01/05/25 DS: Providers Provider Date of admission: 12/31/24 09:59 Primary care physician: Christine Kay MD Admitting Provider: Suzanna Bellamy DO Attending Provider on Admission: Suzanna Bellamy DO Consults: 12/31/24 14:26 Consult to Gastroenterology Routine Comment: Consulting Provider: Nadia Claros 12/31/24 14:50 Referral Wound Care Routine Comment: 12/31/24 17:00 Referral Registered Dietitian Routine Comment: [facility] Referral - Knowledge Deficit Routine Comment: Positive screening for knowledge deficit needs. 01/01/25 09:59 Consult to Cardiology Routine Comment: Consulting Provider: Tl Trejo 01/02/25 08:00 Referral Speech Therapy Urgent Comment: 01/03/25 10:15 Consult to Infectious Diseases Routine Comment: Osteomyelitis Consulting Provider: Charles Tapia Attending Provider on DC: Suzanna Bellamy DO Discharging Provider: Suzanna Bellamy DO DS: Diagnosis Problem List Completed Was Problem List Reviewed/Reconciled?: Yes Hospital Course Hospital Course Hospital course: Summary: Agustin Schrader 64M pmhx significant for A-fib on Eliquis, CAD s/p multiple stents on Plavix, CVA wheelchair bound, CKD stage IIIb, Castorena's esophagus, hx of UGIB and esophageal ulcers, chronic osteomyelitis of the T11-T12 spine s/p debridement and currently on oral abx, who presented to [facility] ED on 12/31 from SNF due to altered mental status, oral bleeding and atrial fibrillation RVR, admitted for acute post hemorrhagic anemia, acute on chronic encephalopathy 2/2 UTI vs lactic acidosis vs starvation ketosis, atrial fibrillation RVR and ARIA on CKDIIIb. Patient presented with 1-2 days of confusion at SNF, per alert and conversional two days ago, however endorses decreased oral intake with at least one episode of hematemesis. Previously presented on 12/15 for altered mental status secondary to urinary retention, however in ED, Tinoco catheter in place. On admission, hemoglobin 7.1 and noted crusted blood on mouth and lips and was transfused 1 PRBC on 01/01. Patient had EGD done 12/17 which showed esophageal ulcers. Esophagus and gastritis. Patient was treated with fluids and underwent EGD on 01/02 which showed esophageal ulcers, subcutaneous mucosal changes consistent with Castorena's esophagus, gastritis and erythematous duodenopathy. Per GI, no colonoscopy at this time. Furthermore, admission patient presented with atrial fibrillation RVR likely secondary to acute posthemorrhagic anemia. Resolved with amiodarone drip and controlled with just metoprolol on discharge. Per cardiology, continue Eliquis and discontinue Plavix as patient's last stent was placed over a year ago. Patient was also found to be hyponatremic with ARIA on CKD stage IIIb, treated with gentle IVF. Urine culture grew yeast and patient was treated with fluconazole. 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 On previous admission on 12/15 he was discharged with 8-week course of p.o. antibiotics with doxycycline levofloxacin as patient has previously pulled out a PICC line. ID was consulted and patient will be discharged with oral doxycycline and Keflex. On discharge, patient is hemodynamically stable, alert and oriented x 2 at baseline and patient is ready to be discharged back to SNF. Imagin/27 KUB: mild small bowel ileus Renal US: moderate scarring of R kidney, L not visualized Discharge Recommendations: - Please take all medications as prescribed - START fluconazole 100 mg daily for 6 more days ending on 01/10/25 - Continue doxycycline 100 mg twice daily and Keflex until 02/12/25 - Discontinue levofloxacin as it was switched to Keflex - Discontine Plavix as your stent was placed >1 year ago - Continue metoprolol tartrate 100 mg twice daily and Eliquis 5 mg twice daily - Continue all home medications - Wound care instructions as below and follow up with your already established wound care - Please follow up with your PCP within one week of discharge - If your symptoms worsen, please seek immediate medical attention and return to your nearest emergency room. Wound Care: -Stage 4 to medial upper back: irrigate well with NS, pat dry. Fill wound bed with iodosorb gel. Skin prep to wound edges and secure with allyven dressing daily and PRN for falling off or saturating. Side to side repositioning with offloading over mid back and sacrum (no pillows or wedges over wound sites please). Negative heel pressure bilaterally No briefs - Stage 3 scattered over sacrum: cleanse well with NS, pat dry. Apply calcium alginate to wound bed. Skin prep to wound edges and secure with allevyn dressings daily and PRN for falling off or soiling. 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 Bellamy, and PGY-3 Dr. Paulino. Yohana Torres, DO Internal Medicine, PGY-1 Senior resident attestation: Patient evaluated and examined at the bedside, plan of care discussed with rest of the team including my attending physician, except as noted. The patient was admitted for acute encephalopathy, oral bleeding concern for GI bleed as longterm found dried up blood on patient's lips, A-fib with RVR and acute anemia. Of note patient was recently diagnosed with vertebral osteomyelitis and was initially discharged on IV antibiotics with central line, which patient pulled out of his body, due to encephalopathy patient is unable to comply with safe commands and pulls at IV lines, during previous hospitalization patient was discharged on p.o. antibiotics due to chronic encephalopathy following stroke, and this admission we got IV access via central line as patient had blown out peripheral IV lines, had mittens in place as he kept on pulling at lines, needed central IV for blood transfusions due to anemia, central line was discontinued prior to discharge as patient continued to exhibit poor insight and unable to comply with safe instructions wound care followed the patient while in hospital, patient will be discharged on p.o. antibiotics doxycycline and Keflex, infectious disease specialist Dr Tapia followed the patient during hospitalization . [place] PGY3 Time Spent with Patient Time attestation: Total time spent providing and/or coordinating discharge services: Time spent: Greater than 30 minutes Exam Vital Signs Temp Pulse Resp BP Pulse Ox O2 Del Method O2 Flow Rate 97.4 F 85 14 125/67 99 Room Air 3 01/05/25 12:00 01/05/25 12:00 01/05/25 12:00 01/05/25 12:00 01/05/25 12:00 01/05/25 12:00 01/02/25 18:15 Narrative Exam GENERAL: alert and oriented x2 to name and place, no acute distress HEENT: mucous membranes dry, bilateral sclera anicteric CARDIOVASCULAR: regular rate, irregular rhythm, S1/S2 present, no murmurs appreciated PULMONARY: clear to auscultation bilaterally, no rales/rhonchi/wheezes ABDOMINAL: soft, non-tender, non-distended, no rebound/guarding, bowel sounds present EXTREMITIES: no peripheral edema SKIN: warm and dry, no rashes, +stage IV pressure ulcer at lower thoracic region with bone showing, non purulent and non erythematous. NEURO: CN II-XII grossly intact, following commands Discharge Plan Plan Patient Disposition: Xfer Skilled Nsg Fac (SNF) Patient condition on transfer: Stable Care Plan Goals: - Please take all medications as prescribed - START fluconazole 100 mg daily for 6 more days ending on 01/10/25 - Continue doxycycline 100 mg twice daily and Keflex until 02/12/25 - Discontinue levofloxacin as it was switched to Keflex - Discontine Plavix as your stent was placed >1 year ago - Continue metoprolol tartrate 100 mg twice daily and Eliquis 5 mg twice daily - Continue all home medications - Wound care instructions as below and follow up with your already established wound care - Please follow up with your PCP within one week of discharge - If your symptoms worsen, please seek immediate medical attention and return to your nearest emergency room. - If you do not have a PCP, you may follow up at the [facility] at [address] [place] [address] [address], [facility] [address], 1) Wound care: -Stage 4 to medial upper back: irrigate well with NS, pat dry. Fill wound bed with iodosorb gel. Skin prep to wound edges and secure with allyven dressing daily and PRN for falling off or saturating. Side to side repositioning with offloading over mid back and sacrum (no pillows or wedges over wound sites please). Negative heel pressure bilaterally No briefs - Stage 3 scattered over sacrum: cleanse well with NS, pat dry. Apply calcium alginate to wound bed. Skin prep to wound edges and secure with allevyn dressings daily and PRN for falling off or soiling. Prescriptions/Referrals Prescriptions/Med Rec: New fluconazole 100 mg Tablet 100 mg PO QDAY 6 Days Qty: 6 0RF cephalexin 500 mg capsule 500 mg PO QID 37 Days Qty: 148 0RF sodium citrate-citric acid 500-334 mg/5 mL Solution 30 ml PO BID Qty: 300 0RF Continued Eliquis 5 mg tablet 5 mg PO BID Qty: 30 0RF metoprolol tartrate 100 mg tablet 100 mg PO BID 30 Days Qty: 60 0RF doxycycline hyclate 100 mg Tablet 100 mg PO BID 56 Days Qty: 112 0RF Rx Instructions: To complete regimen on 02/12/2025 - eight week course ascorbic acid (vitamin C) [Vitamin C] 250 mg Tablet 500 mg PO BID 30 Days Qty: 120 0RF multivitamin with folic acid [Tab-A-Lissette] 400 mcg Tablet 1 tab PO QDAY 30 Days Qty: 30 0RF zinc sulfate 50 mg zinc (220 mg) Capsule 220 mg PO QDAY 20 Days Qty: 88 0RF pantoprazole 40 mg Tablet,Delayed Release (Dr/Ec) 40 mg PO BID Qty: 30 0RF acetaminophen 325 mg tablet 650 mg PO Q4H PRN (Reason: pain) atorvastatin 40 mg tablet 40 mg PO HS Held losartan 25 mg Tablet 25 mg PO QDAY 30 Days Qty: 30 0RF Hold Instructions: f/u with pcp isosorbide mononitrate 30 mg Tablet Extended Release 24 Hr 60 mg PO QDAY Hold Instructions: f//u wtih cardiology Discontinued levofloxacin 750 mg tablet 750 mg PO QDAY Qty: 47 0RF clopidogrel 75 mg Tablet 75 mg PO QDAY Referrals: Christine Kay MD [Primary Care Provider] Patient/Caregiver Discharge Instructions Other Discharge Activity Instructions:: - Please take all medications as prescribed - START fluconazole 100 mg daily for 6 more days ending on 01/10/25 - Continue doxycycline 100 mg twice daily and Keflex until 02/12/25 - Discontinue levofloxacin as it was switched to Keflex - Discontinue Plavix as your stent was placed >1 year ago - Continue metoprolol tartrate 100 mg twice daily and Eliquis 5 mg twice daily - Continue all home medications - Wound care instructions as below and follow up with your already established wound care - Please follow up with your PCP within one week of discharge - If your symptoms worsen, please seek immediate medical attention and return to your nearest emergency room. - If you do not have a PCP, you may follow up at the [facility] at [address] [place] [address] [address], [facility] [address], 1) Wound care: -Stage 4 to medial upper back: irrigate well with NS, pat dry. Fill wound bed with iodosorb gel. Skin prep to wound edges and secure with allyven dressing daily and PRN for falling off or saturating. Side to side repositioning with offloading over mid back and sacrum (no pillows or wedges over wound sites please). Negative heel pressure bilaterally No briefs - Stage 3 scattered over sacrum: cleanse well with NS, pat dry. Apply calcium alginate to wound bed. Skin prep to wound edges and secure with allevyn dressings daily and PRN for falling off or soiling. Education Materials: Bleeding Gastrointestinal, AFL/Afib Print Language: Panamanian Stand Alone Forms: Caterina Award Info., Patient Portal Info Letter Discharge Order Discharge Orders: Discharge (Routine); Ordered 01/05/25 Ordered By: Oralia Paulino Quality Discharge Quality Measures VTE prophylaxis
== END 2025-01-05 14:43 | disposition skilled nursing facility (03) | DRG 380 ==
LOC: SERX 02:53 → SERHOLD 10:14 → S2NX 16:28 → SERHOLD 01-01 06:23 → S2NX 01-02 06:57 → S3NX 01-03 22:53
PROVIDERS: Radiology Diagnostic Radiology; Specialist; Student in an Organized Health Care Education/Training Program; Admitting Provider Internal Medicine; Emergency Provider Emergency Medicine; PCP Hospitalist; Visit Provider Internal Medicine
PROC: (CPT 43239; principal; 2024-12-31 17:30)
PROC: 0DJ08ZZ Inspection of Upper Intestinal Tract, Via Natural or Artificial Opening Endoscopic (ICD-10-PCS; CPT 43239; principal; 2025-01-02 19:30)
DX: K22.11 Ulcer of esophagus with bleeding (principal); G93.41 Metabolic encephalopathy; I48.20 Chronic atrial fibrillation, unspecified; N39.0 Urinary tract infection, site not specified; E87.29 Other acidosis; D62 Acute posthemorrhagic anemia; N17.9 Acute kidney failure, unspecified; M46.20 Osteomyelitis of vertebra, site unspecified; E87.0 Hyperosmolality and hypernatremia; E87.1 Hypo-osmolality and hyponatremia; K56.7 Ileus, unspecified; Z79.01 Long term (current) use of anticoagulants; Z95.5 Presence of coronary angioplasty implant and graft; I25.10 Atherosclerotic heart disease of native coronary artery without angina pectoris; Z86.73 Personal history of transient ischemic attack (TIA), and cerebral infarction without residual deficits; K29.71 Gastritis, unspecified, with bleeding; I12.9 Hypertensive chronic kidney disease with stage 1 through stage 4 chronic kidney disease, or unspecified chronic kidney disease; N18.32 Chronic kidney disease, stage 3b; K22.70 Barrett's esophagus without dysplasia; G40.909 Epilepsy, unspecified, not intractable, without status epilepticus; Z79.2 Long term (current) use of antibiotics; Z79.899 Other long term (current) drug therapy; Z87.440 Personal history of urinary (tract) infections; Z87.19 Personal history of other diseases of the digestive system; K31.89 Other diseases of stomach and duodenum; Z99.3 Dependence on wheelchair; H91.90 Unspecified hearing loss, unspecified ear
CPT/HCPCS: 36415; 70450; 71045; 74018; 76770; 77001; 80048; 80053; 80069; 80202; 81001; 82010; 82803; 83605; 83735; 84100; 84295; 84439; 84443; 84484; 85014; 85018; 85025; 85610; 85730; 86850; 86900; 86901; 86923; 87040; 87081; 87086; 87106; 92526; 92610; 93005; 93225; 99284; A4649; C1751; C1894; J0283; J0692; J0696; J1200; J1642; J2250; J2405; J2470; J3010; J3373; J3411; J3475; J3490; J7030; J7042; J7050; J7070; J7999; P9016; A9270

== ENCOUNTER → 2025-01-19 | Outpatient (CLI) | payer MEDICARE, MEDICAID, SELFPAY | END | disposition home or self-care (01) | PROVIDERS: PCP Family Medicine; Referring Provider Family Medicine; Visit Provider Surgery | DX: L89.152 Pressure ulcer of sacral region, stage 2 (principal); L89.894 Pressure ulcer of other site, stage 4; S21.209A Unspecified open wound of unspecified back wall of thorax without penetration into thoracic cavity, initial encounter; X58.XXXA Exposure to other specified factors, initial encounter; M46.20 Osteomyelitis of vertebra, site unspecified; N18.6 End stage renal disease; E78.5 Hyperlipidemia, unspecified; R13.19 Other dysphagia; I48.91 Unspecified atrial fibrillation; M62.81 Muscle weakness (generalized); Z86.73 Personal history of transient ischemic attack (TIA), and cerebral infarction without residual deficits; I12.0 Hypertensive chronic kidney disease with stage 5 chronic kidney disease or end stage renal disease | CPT/HCPCS: 99214; A9270; G0463 ==

== ENCOUNTER 2025-01-20 06:45 | Inpatient (IN) | payer MEDICARE, MEDICAID, SELFPAY ==
[2025-01-20] VITALS (83 sets, daily range): BP systolic 00–138; BP diastolic 00–81; PULSE 39–188; RESP 12–100; TEMP 32.5–36.6; O2SAT 99–100; BMI 32.3
--- NOTE | 2025-01-20 | XR_ITS ---
Examination: MRI brain without intravenous contrast. Date and time of exam: January 20, 2025, 1210 hours, comparison October 20, 2023 INDICATIONS: Artifact versus subarachnoid hemorrhage in the left parietal sulci on CT stroke alert brain scan January 20, 2025 0658 hours, stroke alert Technique: Multiple axial and sagittal images of the brain obtained. Siemens high-resolution 1.5 Leanna short bore scanners utilized. Sagittal sections, T1-weighted, TR 500, TE 14, are performed. Axial sections proton-density and T2-weighted have been obtained. Inversion recovery axial images, TR 9, 260, TE 111, TI 2500. Diffusion weighted images, axial sections, TR 4800, TE 128, B value 1000 Axial sections, ADC map, TR 4800, TE 128 Findings: Enlargement of the sella turcica is not present. The optic chiasm and infundibular are not remarkable. Prepontine and interpeduncular cisterns are not enlarged. There is no localized enlargement of the medulla or joanie. Fourth ventricle and cerebellar tonsils appear normal in position. No subacute area of hemorrhage density is seen. Mass in the cerebellopontine angle region is not evident. Globes symmetrical. Orbital musculature including medial lateral rectus muscles do not exhibit abnormality. Diffusion-weighted images demonstrate no definite focus of restricted diffusion Chronic subdural fluid accumulations, largest in the left cerebral hemisphere, FLAIR image 20 measuring 15 mm in thickness. Increased white matter signal mild Mass effect upon the ventricular system is not identified. Impression: Chronic subdural hygromas No acute infarct No definite acute hemorrhage I would still strongly recommend short-term follow-up CT brain scan, in 12 hours with specific attention to the left parietal sulci
--- NOTE | 2025-01-20 06:46 | XR_ITS ---
Examination: CT brain head without contrast. 2-D sagittal coronal reconstructions Date and time: January 20, 2025, 0658 hours, comparison December 31, 2024 INDICATIONS: Stroke alert, onset focal neurologic deficit today CTDI: vol (mGy): 84.3 DLP: (mGycm): 2180 Technique: Multiple CT axial sections of the brain have been obtained, 5 mm slice thickness. Contrast has not been administered. 2-D sagittal, coronal reconstructions have been obtained Low dose protocols were performed. One or more of the following dose reduction techniques were used; automated exposure control, adjustment of the mA and/or KV according to patient size, use of iterative reconstruction technique. Findings: No significant ventricular enlargement. Minimal chronic subdural hygromas peripheral to the cerebral hemispheres for instance image 14 Axial images 19, 20 and 21 demonstrate small hyperdensities left cerebral sulci which may be artifactual, small areas of subarachnoid hemorrhage not excluded No mass effect Fourth ventricle is midline Cranial vault intact IMPRESSION: Axial images 19, 20, 21 demonstrate small hyperdensities left cerebral sulci which may be artifactual, small areas of subarachnoid hemorrhage not excluded, the appearance should be clinically correlated
--- NOTE | 2025-01-20 06:46 | XR_ITS ---
Examination: CTA carotids with intravenous contrast CTA brain, head with intravenous contrast. 2-D sagittal, coronal reconstructions. 3-D reconstructions. Exam date and time: January 20, 2025, 0700 hours INDICATION: Stroke alert, onset focal neurologic deficit beginning 1 hour ago including altered mental status CTDI: vol (mGy) 46.99 DLP: (mGycm) 573 Technique: Multiple CTA axial brain, head carotid images post intravenous contrast injection 75 cc, [id number]. 2-D sagittal, coronal reconstructions. 3-D reconstructions, 3-D post processing including vascular maximum intensity projection images. Low dose protocols were performed. One or more of the following dose reduction techniques were used; automated exposure control, adjustment of the mA and/or KV according to patient size, use of iterative reconstruction technique. Findings: Bilateral thyroid nodules including 15 mm calcified left thyroid nodule Heavy calcification left carotid bifurcation, 40% stenosis left carotid bifurcation origin left internal carotid artery Mild calcification right carotid bifurcation Right internal carotid artery is attenuated diffusely although patent Dominant left vertebral artery in the neck, no critical vertebral artery stenoses in the neck Heavy calcification intracranial right vertebral artery Basilar artery does fill although it is attenuated Significant stenosis P1 segment left posterior cerebral artery, axial image 66 Significant calcification juxtasellar portions of both internal carotid arteries Significant irregularity of the M1 segment left middle cerebral artery M1 segments middle cerebral arteries and middle cerebral artery trifurcation vessels do not demonstrate definite large vessel occlusions Anterior cerebral arteries intact The 3D images are very limited IMPRESSION: 40% stenosis left carotid bifurcation Right internal carotid artery is diffusely attenuated although patent Significant stenosis P1 segment left posterior cerebral artery Significant calcification juxtasellar portions of both internal carotid arteries Significant irregularity M1 segment left middle cerebral artery No definite large vessel occlusions involving middle cerebral posterior cerebral or anterior cerebral arteries
--- NOTE | 2025-01-20 06:46 | XR_ITS ---
EXAMINATION: AP chest single view TECHNIQUE: AP portable semiupright chest single view Date and time: January 20, 2025, 0759 hours, comparison January 03, 2025 INDICATION: Chest pain shortness of breath today FINDINGS: Minor prominence left ventricle Subsegmental atelectasis left base Mild elevation left hemidiaphragm. No lobar pneumonia or pulmonary edema. Mild osteopenia IMPRESSION: Subsegmental atelectasis left base
--- NOTE | 2025-01-20 06:46 | EKG_ITS ---
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
--- NOTE | 2025-01-20 06:50 | PC.NURSE ---
pt bib ems with c/o ams per at facility. pt at baseline is a gcs 15. lkw was 4am today per staff at facility. dr beltre in ambulance by examining pt and initiated stroke alert. pt taken to ct with comic book writer via [facility]. pt placed on cc monitor and vital sign machine.
[2025-01-20 07:02] LABS: Basophils # (Auto) 0.0 Thou/mm3 (0.0-0.2); Basophils % (Auto) 0 % (0-2.5); Eosinophils # (Auto) 0.5 Thou/mm3 (0.0-0.5); Eosinophils % (Auto) 9 % (0-10); Hematocrit 23.4 % (41.0-53.0); Immature Granulocytes Auto 0.09 Thou/mm3 (0.00-0.00); Lymphocytes # (Auto) 0.4 Thou/mm3 (1.0-4.8); Lymphocytes % (Auto) 8 % (10-50); Mean Corpuscular HGB Conc 32.1 g/dl (31.0-37.0); Mean Corpuscular Hemoglobin 30.2 pg (25.0-35.0); Mean Corpuscular Volume 94 fL (80-100); Monocytes # (Auto) 0.1 Thou/mm3 (0.0-0.8); Monocytes % (Auto) 2 % (0-12); Neutrophils # (Auto) 4.0 Thou/mm3 (1.8-7.7); Neutrophils % (Auto) 79 % (37-80); Nucleated Red Blood Cell # 0.02 Thou/mm3 (0.00-0.00); Nucleated Red Blood Cell % 0 /100 WBC (0); Platelet Count 219 Thou/mm3 (140-440); RDW Standard Deviation 62.4 fL (35.1-43.9); Red Blood Count 2.48 Miln/mm3 (4.50-5.90); White Blood Count 5.1 Thou/mm3 (3.8-10.6)
[2025-01-20 07:05] LABS: Hemoglobin 7.5 g/dL (13.5-16.0)
--- NOTE | 2025-01-20 07:13 | EDNOTE_ITS ---
Altered Mental Status RME/HPI General Chief Complaint: Altered Mental Status Stated Complaint: ALTERED Time Seen by Provider: 01/20/25 06:46 Arrival date/time: 01/20/25 06:45 Limitations: no limitations RME / HPI RME / HPI narrative: DR. MARINA MAIN ED EVALUATION: Patient is a 64-year-old male with history of atrial fibrillation on Eliquis, CAD with multiple stents on Plavix, history of upper GI bleed, hypertension, end-stage renal disease 3, CVA with resulting encephalopathy, hyperlipidemia, chronic osteomyelitis thoracic spine with wound, wheelchair-bound and history of CVA who was brought in by EMS from the detention with chief complaint of altered mental status. Patient's GCS is usually 15 and when staff went into his room this morning the patient was very much altered. Patient is awake and alert but nonconversant. Patient was last seen normal at 7 PM. He is not able to contribute to the history. Related Data Home Medications ?Medication ?Instructions ?Recorded ?Confirmed isosorbide mononitrate 30 mg 60 mg PO QDAY 10/20/23 tablet,extended release 24 hr Held on 01/05/25. Instructions: f//u wtih cardiology acetaminophen 325 mg tablet 650 mg PO Q4H PRN pain (sc terence 01/01/25 01/20/25 score 1-3) and fever atorvastatin 40 mg tablet 40 mg PO HS HDL 01/01/25 ascorbic acid (vitamin C) 500 mg 500 mg PO BID supplem ent 01/20/25 01/20/25 tablet (C-500) bisacodyl 10 mg rectal suppository 10 mg IN QDAY PRN c onstipation 01/20/25 01/20/25 (Dulcolax (bisacodyl)) cephalexin 500 mg capsule 500 mg PO Q6H osteomyelitis 01/20/25 01/20/25 hydroxyzine HCl 25 mg tablet 25 mg PO BID Itching 01/0601/20/25 metoprolol tartrate 100 mg tablet 100 mg PO BID HTN 01/20/25 multivitamin with folic acid 400 1 tab PO QDAY supplem ent 01/20/25 01/20/25 mcg tablet (Daily-Lissette (with folic acid)) sodium phosphates 19 gram-7 118 ml IN QDAY PRN constip ation 01/20/25 01/20/25 gram/118 mL enema (Fleet Enema) zinc sulfate 50 mg zinc (220 mg) 50 mg PO QDAY supplem ent 01/20/25 01/20/25 capsule (Zinc-220) Previous Rx's ?Medication ?Instructions ?Recorded apixaban 5 mg tablet (Eliquis) 5 mg PO BID CAD #30 tab s 10/19/24 doxycycline hyclate 100 mg tablet 100 mg PO BID 8 week s #112 tabs 12/18/24 pantoprazole 40 mg tablet,delayed 40 mg PO BID GERD #3 0 tabs 12/19/24 release losartan 25 mg tablet 25 mg PO QDAY 1 month #30 ta bs 12/25/24 Held on 01/05/25. Instructions: f/u with pcp sodium citrate-citric acid 500 30 ml PO BID #300 mL mg-334 mg/5 mL oral solution Held on 01/20/25. Instructions: Doctor's Order Allergies Allergy/AdvReac Type Severity Reaction Status Date / Time bee pollen Allergy Severe Anaphylaxis Verified 01/20/25 06:47 Sulfa (Sulfonamide Allergy Intermediate Swelling Verified 01/20/25 06:47 Antibiotics) of Lip/Tongue/Throat ampicillin Allergy Unknown Hives Verified 01/20/25 06:47 hydrocodone AdvReac Unknown Nausea Verified 01/20/25 06:47 COLLAGEN Allergy Intermediate Rash Uncoded 01/20/25 06:47 Review of Systems Review of Systems ROS Unobtainable: unobtainable due to mental status Past Medical History Past Medical History NEUROLOGIC: Positive Neurological Disorders and Cerebrovascular Accident CARDIAC: Positive Cardiac Disorders, Myocardial Infarction, Atrial Fibrillation, Coronary Artery Disease, Hypercholesterolemia and Hypertension GASTROINTESTINAL: Positive Gastrointestinal Disorders, Gall Bladder Disease, Gastrointestinal Bleed, Ulcer, Gastroesophageal Reflux Disease and Obesity MUSCULOSKELETAL: Positive Musculoskeletal Disorders, Bone Cancer and Scoliosis ENT: Positive Deafness HEMATOLOGIC: Positive Blood Disorders and Anemia PSYCHO/SOCIAL: Positive Depression OTHER HISTORY: Positive Hospitalization, Falls, Blood Transfusions, Chemotherapy, Radiation Therapy and Cancer Family History FAMILY HISTORY: Positive Family Cardiac Disorders and Family Surgery Surgical History SURGICAL: Positive Cardiac Surgery, Coronary Stent, Angiogram, Endocrine Surgery, Tonsillectomy, Abdominal Surgery and Amputation Social History SMOKING STATUS: Unknown if ever smoked SECOND HAND EXPOSURE: No SUBSTANCE USE: does not use ED Exam General Limitations: Present no limitations General appearance: Present alert, in no apparent distress and other (intermittently somnolent but arousable) Head Head exam: Present atraumatic, normocephalic and normal inspection Eye Eye exam: Present normal appearance, PERRL and EOMI ENT ENT exam: Present normal exam, normal oropharynx and mucous membranes moist Neck Neck exam: Present normal inspection, full ROM and trachea midline Chest Chest inspection: Present normal inspection and symmetric chest wall rise Respiratory Respiratory exam: Present normal lung sounds bilaterally Cardiovascular Cardiovascular exam: Present regular rate, normal rhythm and normal heart sounds Abdominal Exam Abdominal exam: Present soft and normal bowel sounds Extremities Exam Extremities exam: Present normal inspection Back Exam Back exam: Present normal inspection Neurological Exam Neurological exam: Present other (Present awake, intermittently somnolent, oriented X0, CN II-XII grossly intact, withdraws to pain, follows only one simple command. No focal motor deficits appreciated given limited participation. Reflexes normal; Absent motor sensory deficit that can be reliably assessed due to mental status.) Psychiatric Psychiatric exam: Present normal affect and normal mood Skin Skin exam: Present warm, dry, intact and normal color Course Quality Measures none Orders Category Date Time Status Bedside Blood Glucose NOW Care 01/20/25 06:46 Active COVID-19 Screening Questionnaire NOW Care 01/20/25 13:36 Active Rhinologist NOW Care 01/20/25 06:46 Completed Continuous Pulse Oximetry NOW Care 01/20/25 06:46 Completed Decision to Admit X1 Care 01/20/25 13:35 Completed EKG (ED ONLY) *Do not use* NOW Care 01/20/25 06:46 Completed In and Out Catheter NEEDED Care 01/20/25 06:46 Active Insert IV NOW Care 01/20/25 06:46 Completed MRI Screening NOW Care 01/20/25 09:43 Completed NIH Stroke Scale now Care 01/20/25 06:46 Active NPO NOW Care 01/20/25 06:46 Active Nurse Swallow Screen x1 Care 01/20/25 06:46 Active Consult to Neurology / Tele-Neurology Routine Cons 01/20/25 06:[address] angio stroke protocol Stat Exams 01/20/25 06:[address] stroke protocol Stat Exams 01/20/25 06:46 Completed EKG (ED Only) Stat Exams 01/20/25 06:46 Draft MR head/brain wo con Stat Exams 01/20/25 Completed XR chest 1V portable Stat Exams 01/20/25 06:46 Completed XR chest 1V post procedure Stat Exams 01/20/25 13:49 Completed Alcohol, Blood Medical Stat Lab 01/20/25 06:51 Completed B-Type Natriuretic Peptide Stat Lab 01/20/25 06:51 Completed Blood Culture (Lab) Stat Lab 01/20/25 06:55 Received CBC Stat Lab 01/20/25 06:51 Completed Comprehensive Metabolic Panel Stat Lab 01/20/25 06:51 Completed Drug Screen,Urine Stat Lab 01/20/25 09:20 Completed Free T4 (Free Thyroxine) Stat Lab 01/20/25 06:51 Completed LDH (Lactate Dehydrogenase) Stat Lab 01/20/25 06:51 Completed Lactate (Lactic Acid) Stat Lab 01/20/25 07:52 Completed Lactic Acid [Lactate (Lactic Acid)] Stat Lab 01/20/25 11:27 Completed Lipase Stat Lab 01/20/25 06:51 Completed Magnesium Stat Lab 01/20/25 06:51 Completed Partial Thromboplastin Time Stat Lab 01/20/25 06:51 Completed Phosphorous Stat Lab 01/20/25 06:51 Completed Procalcitonin Stat Lab 01/20/25 06:51 Completed Prothrombin Time with INR Stat Lab 01/20/25 06:51 Completed TSH [Thyroid Stimulating Hormone] Stat Lab 01/20/25 06:51 Completed Troponin I Stat Lab 01/20/25 06:51 Completed Urinalysis, C/S if Indicated Stat Lab 01/20/25 09:20 Completed Urine Culture Stat Lab 01/20/25 09:20 Received Doxycycline Inj [Vibramycin Inj] 100 mg Med 01/20/25 08:18 Discontinued Sodium Chloride 0.9% (Pop) [NS 0.9% mini bag] 100 ml IV X1 Magnesium Sulfate 2 GM Ivpb [Magnesium Sulfate Ivpb] Med 01/20/25 07:35 Discontinued 2 gm in 50 ml IV X1 Norepinephrine/D5W 8mg/250ml [Levophed in D5W 8mg/250ml Med 01/20/25 08:27 Discontinued ] 8 mg in 250 ml IV .STK-MED Norepinephrine/D5W 8mg/250ml [Levophed in D5W 8mg/250ml Med 01/20/25 08:18 Active ] 8 mg in 250 ml IV 0.05 mcg/kg/min Sodium Chloride 0.9% 1000 ml [Ns] 1,000 ml Med 01/20/25 07:26 Discontinued IV 999 mls/hr Sodium Chloride 0.9% 1000 ml [Ns] 1,000 ml Med 01/20/25 07:27 Discontinued IV 999 mls/hr Sodium Chloride 0.9% 1000 ml [Ns] 1,000 ml Med 01/20/25 07:47 Discontinued IV 999 mls/hr Sodium Chloride 0.9% 1000 ml [Ns] 1,000 ml Med 01/20/25 08:19 Discontinued IV 999 mls/hr cefTRIAXone/D5w 1gm IV premix [Rocephin/D5w 1gm IV Med 01/20/25 07:27 Discontinued premix] 1 gm in 50 ml IV X1 cefTRIAXone/D5w 1gm IV premix [Rocephin/D5w 1gm IV Med 01/20/25 08:54 Discontinued premix] 1 gm in 50 ml IV X1 Oxygen Delivery NOW RT 01/20/25 06:46 Active Oxygen Delivery NOW RT 01/20/25 07:24 Active Reevaluation(s) Reevaluation #1: BP is 66/40 will order a third liter of bolus and start them on Levophed. Time: 08:18 Vital Signs Vital signs: Vital Signs Pulse Rate 146 H 01/20/25 07:15 Respiratory Rate 18 01/20/25 07:15 Altered Mental Status MDM Narrative MDM Narrative:: I, Fabiola Mayo, am scribing for and in the presence of Dr. Marina. Patient presents with acute altered mental status significantly different from baseline. Stroke alert and sepsis alert initiated. Differential includes acute CVA, sepsis, and metabolic encephalopathy. Labs, imaging, and treatment underway. Patient monitored closely. On exam the patient is awake and alert. He does fall asleep occasionally but is awakened by voice. He meets my eyes but he does not respond verbally. Pupils are equal bilaterally. Patient did follow 1 command to take a deep breath but otherwise does not. Lungs are clear, heart rates in the 70s. A stroke alert was called immediately upon arrival and now a sepsis alert has been called. 07:[address] Choudhury (teleneurologist on duty). We discussed the patient's case in detail including his Noncon CT head. He said that the CT was normal and that he does not suspect CVA. He said that even if this were CVA the patient is outside the window for TNK. Patient has already received CTA head and neck and we are waiting for the reports Patient has a blood pressure 70 over something, is temp is 90.1, heart rates in the 70s and A-fib. Bear hugger placed, fluid bolus being given now. [place] 0732 hours, my interpretation: atrial fibrillation with ventricular rate at 76, there is much motion artifact in unable to interpret further 08:18 BP is 66/40 will order a third liter of bolus and start him on Levophed. Patient signed out to Dr. Miller at 830 AM. Patient data External records reviewed:: [facility] previous records and EMS form Clinical information provided by:: EMS and family Social determinants that could affect healthcare access:: none Patient has the following chronic illnesses:: Atrial fibrillation on Eliquis, CAD with multiple stents on Plavix, history of upper GI bleed, hypertension, end-stage renal disease 3, CVA with resulting encephalopathy, hyperlipidemia, chronic osteomyelitis thoracic spine with wound, wheelchair-bound and history of CVA. How is presenting disease/condition affected by chronic disease/condition?: exacerbated by Evaluation data The following diagnostics were reviewed and interpreted by me:: lab results, rad iology exam(s) and EKG tracing(s) (EKG at 0732 hours, my interpretation: atrial fibrillation with ventricular rate at 76, there is much motion artifact in unable to interpret further) Lab and/or radiology exams considered but not ordered:: none Interpretation Summary: See MDM narrative above. Medications / Prescriptions Medications or Prescriptions considered but not ordered:: none Medication administrations:: Medication Administration History Atorvastatin Calcium (Atorvastatin Calcium 20 Mg Tablet) 40 mg PO HS [facility] Stop: 02/19/25 20:59 Last Admin: 01/20/25 20:01 Dose: Not Given Documented By: Non-Admin Reason: NPO Comments: PER WASIQ CAN HOLD PT NPO Norepinephrine/Dextrose (Levophed In D5w 8mg/250ml) 8 mg in 250 mls @ 9.568 mls/hr IV .Q24H PRN; Protocol PRN Reason: PER PROTOCOL Stop: 02/19/25 08:17 Last Titration: 01/20/25 23:00 Dose: 0.11 mcg/kg/min, 21.049 mls/hr Documented By: Titration: 01/20/25 22:30 Dose: 0.11 mcg/kg/min, 21.049 mls/hr Documented By: Titration: 01/20/25 22:15 Dose: 0.13 mcg/kg/min, 24.877 mls/hr Documented By: Titration: 01/20/25 22:00 Dose: 0.15 mcg/kg/min, 28.704 mls/hr Documented By: Titration: 01/20/25 21:30 Dose: 0.17 mcg/kg/min, 32.531 mls/hr Documented By: Titration: 01/20/25 21:00 Dose: 0.19 mcg/kg/min, 36.358 mls/hr Documented By: Admin: 01/20/25 20:27 Dose: 0.21 mcg/kg/min, 40.185 mls/hr Documented By: Titration: 01/20/25 20:27 Dose: Infused Documented By: Titration: 01/20/25 20:00 Dose: 0.21 mcg/kg/min, 40.185 mls/hr Documented By: Titration: 01/20/25 19:00 Dose: 0.21 mcg/kg/min, 40.185 mls/hr Documented By: Titration: 01/20/25 18:00 Dose: 0.19 mcg/kg/min, 36.358 mls/hr Documented By: Titration: 01/20/25 17:15 Dose: 0.19 mcg/kg/min, 36.358 mls/hr Documented By: Titration: 01/20/25 17:00 Dose: 0.17 mcg/kg/min, 32.531 mls/hr Documented By: Titration: 01/20/25 16:00 Dose: 0.19 mcg/kg/min, 36.358 mls/hr Documented By: Titration: 01/20/25 15:16 Dose: 0.19 mcg/kg/min, 36.358 mls/hr Documented By: Titration: 01/20/25 15:10 Dose: 0.19 mcg/kg/min, 36.358 mls/hr Documented By: Titration: 01/20/25 15:00 Dose: 0.17 mcg/kg/min, 32.531 mls/hr Documented By: Titration: 01/20/25 14:45 Dose: 0.15 mcg/kg/min, 28.704 mls/hr Documented By: Titration: 01/20/25 14:30 Dose: 0.17 mcg/kg/min, 32.531 mls/hr Documented By: Admin: 01/20/25 14:28 Dose: 0.19 mcg/kg/min, 36.358 mls/hr Documented By: Titration: 01/20/25 14:28 Dose: Infused Documented By: Titration: 01/20/25 14:27 Dose: 0 mcg/kg/min, 0 mls/hr Documented By: Titration: 01/20/25 14:15 Dose: 0.19 mcg/kg/min, 36.358 mls/hr Documented By: Titration: 01/20/25 14:00 Dose: 0.21 mcg/kg/min, 40.185 mls/hr Documented By: Titration: 01/20/25 13:45 Dose: 0.23 mcg/kg/min, 44.013 mls/hr Documented By: Titration: 01/20/25 13:30 Dose: 0.23 mcg/kg/min, 44.013 mls/hr Documented By: Titration: 01/20/25 13:15 Dose: 0.23 mcg/kg/min, 44.013 mls/hr Documented By: Titration: 01/20/25 13:00 Dose: 0.23 mcg/kg/min, 44.013 mls/hr Documented By: Titration: 01/20/25 12:45 Dose: 0.23 mcg/kg/min, 44.013 mls/hr Documented By: Titration: 01/20/25 12:40 Dose: 0.23 mcg/kg/min, 44.013 mls/hr Documented By: Titration: 01/20/25 12:28 Dose: 0.23 mcg/kg/min, 44.013 mls/hr Documented By: Titration: 01/20/25 12:20 Dose: 0.23 mcg/kg/min, 44.013 mls/hr Documented By: Titration: 01/20/25 12:15 Dose: 0.23 mcg/kg/min, 44.013 mls/hr Documented By: Titration: 01/20/25 12:10 Dose: 0.23 mcg/kg/min, 44.013 mls/hr Documented By: Titration: 01/20/25 11:45 Dose: 0.23 mcg/kg/min, 44.013 mls/hr Documented By: Titration: 01/20/25 11:30 Dose: 0.23 mcg/kg/min, 44.013 mls/hr Documented By: Titration: 01/20/25 11:21 Dose: 0.23 mcg/kg/min, 44.013 mls/hr Documented By: Titration: 01/20/25 11:00 Dose: 0.23 mcg/kg/min, 44.013 mls/hr Documented By: Titration: 01/20/25 10:45 Dose: 0.23 mcg/kg/min, 44.013 mls/hr Documented By: Titration: 01/20/25 10:30 Dose: 0.23 mcg/kg/min, 44.013 mls/hr Documented By: Titration: 01/20/25 10:15 Dose: 0.23 mcg/kg/min, 44.013 mls/hr Documented By: Titration: 01/20/25 10:10 Dose: 0.23 mcg/kg/min, 44.013 mls/hr Documented By: Titration: 01/20/25 10:05 Dose: 0.21 mcg/kg/min, 40.185 mls/hr Documented By: Titration: 01/20/25 10:02 Dose: 0.21 mcg/kg/min, 40.185 mls/hr Documented By: Titration: 01/20/25 09:50 Dose: 0.21 mcg/kg/min, 40.185 mls/hr Documented By: Titration: 01/20/25 09:45 Dose: 0.19 mcg/kg/min, 36.358 mls/hr Documented By: Titration: 01/20/25 09:30 Dose: 0.17 mcg/kg/min, 32.531 mls/hr Documented By: Titration: 01/20/25 09:15 Dose: 0.17 mcg/kg/min, 32.531 mls/hr Documented By: Titration: 01/20/25 09:10 Dose: 0.17 mcg/kg/min, 32.531 mls/hr Documented By: Titration: 01/20/25 09:05 Dose: 0.17 mcg/kg/min, 32.531 mls/hr Documented By: Titration: 01/20/25 09:00 Dose: 0.15 mcg/kg/min, 28.704 mls/hr Documented By: Titration: 01/20/25 08:55 Dose: 0.13 mcg/kg/min, 24.877 mls/hr Documented By: Titration: 01/20/25 08:50 Dose: 0.13 mcg/kg/min, 24.877 mls/hr Documented By: Titration: 01/20/25 08:45 Dose: 0.11 mcg/kg/min, 21.049 mls/hr Documented By: Titration: 01/20/25 08:40 Dose: 0.09 mcg/kg/min, 17.222 mls/hr Documented By: Titration: 01/20/25 08:35 Dose: 0.07 mcg/kg/min, 13.395 mls/hr Documented By: Admin: 01/20/25 08:30 Dose: 0.05 mcg/kg/min, 9.568 mls/hr Documented By: [facility] Piperacillin/Tazobactam/Dextrose (Zosyn) 3.375 gm in 50 mls @ 12.5 mls/hr IV Q12HR HANNAH; Protocol Stop: 01/27/25 20:59 Last Admin: 01/20/25 20:06 Dose: 12.5 mls/hr Documented By: Pantoprazole Sodium (Pantoprazole Inj 40 Mg Vial) 40 mg IVP BID HANNAH Stop: 02/19/25 20:59 Last Admin: 01/20/25 20:06 Dose: 40 mg Documented By: Pharmacy Consult (Vancomycin Pharmacy To Dose 1 Each Each) 1 each IV QDAY PRN PRN Reason: CONSULT Stop: 02/19/25 14:14 Pharmacy Consult (Pharmacy Renal Dose Adjustment 1 Ea) 1 each XX PRN PRN PRN Reason: CONSULT Stop: 02/19/25 14:17 Discontinued Medications Hydrocortisone Sodium Succinate (Hydrocortisone Sod Succ Inj 100 Mg 2 Ml Vial) 100 mg IV X1 ONE Stop: 01/20/25 16:34 Last Admin: 01/20/25 16:46 Dose: 100 mg Documented By: Sodium Chloride (Ns) 1,000 mls @ 999 mls/hr IV .Q1H1M ONE Stop: 01/20/25 08:26 Last Infusion: 01/20/25 08:49 Dose: Infused Documented By: [facility] Admin: 01/20/25 07:43 Dose: 999 mls/hr Documented By: [facility] Ceftriaxone Sodium/Dextrose (Rocephin/D5w 1gm Iv Premix) 1 gm in 50 mls @ 100 mls/hr IV X1 ONE Stop: 01/20/25 07:56 Last Infusion: 01/20/25 08:20 Dose: Infused Documented By: [facility] Admin: 01/20/25 07:44 Dose: 100 mls/hr Documented By: [facility] Sodium Chloride (Ns) 1,000 mls @ 999 mls/hr IV .Q1H1M ONE Stop: 01/20/25 08:27 Magnesium Sulfate (Magnesium Sulfate Ivpb) 2 gm in 50 mls @ 25 mls/hr IV X1 ONE Stop: 01/20/25 09:34 Last Infusion: 01/20/25 09:34 Dose: Infused Documented By: [facility] Admin: 01/20/25 07:54 Dose: 25 mls/hr Documented By: [facility] Sodium Chloride (Ns) 1,000 mls @ 999 mls/hr IV .Q1H1M ONE Stop: 01/20/25 08:47 Last Infusion: 01/20/25 09:44 Dose: Infused Documented By: [facility] Admin: 01/20/25 08:27 Dose: 999 mls/hr Documented By: [facility] Doxycycline Hyclate 100 mg/ (Sodium Chloride) 100 mls @ 100 mls/hr IV X1 ONE Stop: 01/20/25 09:17 Last Infusion: 01/20/25 13:48 Dose: Infused Documented By: Admin: 01/20/25 09:37 Dose: 100 mls/hr Documented By: [facility] Sodium Chloride (Ns) 1,000 mls @ 999 mls/hr IV .Q1H1M ONE Stop: 01/20/25 09:19 Last Infusion: 01/20/25 10:47 Dose: Infused Documented By: [facility] Admin: 01/20/25 08:49 Dose: 999 mls/hr Documented By: [facility] Norepinephrine/Dextrose (Levophed In D5w 8mg/250ml) Confirm Administered Dose 8 mg in 250 mls @ ud IV .STK-MED ONE Stop: 01/20/25 08:28 Last Admin: 01/20/25 08:42 Dose: Not Given Documented By: [facility] Non-Admin Reason: Duplicate Medication on eMAR Ceftriaxone Sodium/Dextrose (Rocephin/D5w 1gm Iv Premix) 1 gm in 50 mls @ 100 mls/hr IV X1 ONE Stop: 01/20/25 09:23 Last Infusion: 01/20/25 09:42 Dose: Infused Documented By: [facility] Admin: 01/20/25 09:13 Dose: 100 mls/hr Documented By: [facility] Piperacillin/Tazobactam/Dextrose (Zosyn) 3.375 gm in 50 mls @ 100 mls/hr IV X1 ONE; Protocol Stop: 01/20/25 14:59 Last Infusion: 01/20/25 15:03 Dose: Infused Documented By: [facility] Admin: 01/20/25 14:31 Dose: 100 mls/hr Documented By: [facility] Vancomycin HCl/Dextrose (Vancomycin/D5w 1,250 Mg Ivpb) 250 mls @ 120 mls/hr IV X1 ONE Stop: 01/20/25 16:34 Last Admin: 01/20/25 15:06 Dose: 120 mls/hr Documented By: [facility] Magnesium Sulfate (Magnesium Sulfate Ivpb) 2 gm in 50 mls @ 25 mls/hr IV X1 ONE Stop: 01/20/25 16:46 Last Admin: 01/20/25 15:03 Dose: 25 mls/hr Documented By: [facility] Pantoprazole Sodium (Pantoprazole Inj 40 Mg Vial) 40 mg IVP QDAY HANNAH Stop: 02/19/25 15:14 Last Admin: 01/20/25 16:46 Dose: 40 mg Documented By: Sodium Bicarbonate (Sodium Bicarb Inj 8.4% Syr 50 Ml Syringe) 50 ml IV X1 ONE Stop: 01/20/25 16:08 Last Admin: 01/20/25 16:47 Dose: 50 ml Documented By: Sodium Bicarbonate (Sodium Bicarb Inj 8.4% Syr 50 Ml Syringe) 50 ml IV X1 ONE Stop: 01/20/25 16:49 Last Admin: 01/20/25 16:50 Dose: 50 ml Documented By: KUNAL Comments: GIVEN PER MD AT BEDSIDE Sodium Bicarbonate (Sodium Bicarb Inj 8.4% Syr 50 Ml Syringe) Confirm Administered Dose 50 ml IV .STK-MED ONE Stop: 01/20/25 16:46 Last Admin: 01/20/25 17:24 Dose: Not Given Documented By: KUNAL Non-Admin Reason: Override Medication Sodium Bicarbonate (Sodium Bicarb Inj 8.4% Syr 50 Ml Syringe) 50 ml IV X1 ONE Stop: 01/20/25 21:37 Last Admin: 01/20/25 21:41 Dose: 50 ml Documented By: see above Consultations Consultation(s) initiated? (list below): Yes Consultation #1 (Physician, Specialty, Details): I spoke with Dr. Choudhury (teleneurologist on duty). We discussed the patient's case in detail including his Noncon CT head. He said that the CT was normal and that he does not suspect CVA. He said that even if this were CVA the patient is outside the window for TNK. Patient has already received CTA head and neck and we are waiting for the reports Time: 07:29 Diagnosis Differential diagnosis altered mental status: other (acute CVA, sepsis, and metabolic encephalopathy) Most likely diagnosis given after review of the tests above:: See below under clinical impression Admission Indicated Admission indicated?: indicated Admission Request Was there a request for admission?: No Disposition Plan Disposition Plan: other (specify) (Patient signed out to Dr. Miller at 830 AM.) Critical Care Time Critical Care Time Critical Care Time: Yes Total Critical Care Time (min.): 45 Attestation: The high probability of sudden, clinically significant deterioration in the patient?s condition required the highest level of my preparedness to intervene urgently. The services I provided to this patient were to treat and/or prevent clinically significant deterioration. Services included the following: chart data review, reviewing nursing notes and/or old charts, documentation time, retail sales vitamin consultant collaboration regarding findings and treatment options, medication orders and management, direct patient care, vital sign assessments and ordering, interpreting and reviewing diagnostic studies and lab tests. Aggregate critical care time includes only time during which I was engaged in work directly related to the patient?s care, as described above, whether at bedside or elsewhere in the Emergency Department. It did not include time spent performing other reported procedures or the services of residents, students, nurses or physician assistants. Discharge Plan Plan Patient Disposition: Admit Acute Care w/in Hospital Problem List Clinical Impression: Sepsis, Hypotension, UTI (urinary tract infection)
--- NOTE | 2025-01-20 07:15 | PC.NURSE ---
PT BACK FROM CT AND REPORT RECEIVED. PER REPORT, PT HERE WITH AMS AND LAST NORMAL AT 04 AM AND TEND TO LEAN TOWARD THE LEFT. STROKE ALERT WAS CALLED PRIOR TO THIS NURSE GETTING REPORT
--- NOTE | 2025-01-20 07:16 | ESCONSULT_ITS ---
Tele Neuro Consultation Consultation Date 01/20/25 Consultation Narrative [facility] Tele[facility]urology Consult Services Patient Name:???Agustin Schrader Date of :???1960 Identification Number:??? Date of Service:???01/20/2025 06:46:52 Diagnosis:?G93.49 - Encephalopathy Multifactorial ?R47.01 - Aphasia ?R53.1 - Weakness Impression: ?Patient is 64-year-old gentleman past medical history significant for stroke, hypertension, A-fib on Eliquis who presents for evaluation of altered mental status. ? ?Differential diagnosis includes encephalopathy versus CVA. ?CT head does not reveal acute abnormalities. ?Patient is a thrombolytic candidate as he is on Eliquis ?CTA head and neck are pending ? ?- Treat Underlying Infection, severe electrolyte, acid base, endocrine or circulatory disturbances ?- Avoid sedating medication ?- Core temp > 36 degrees celsius ?- MAP 65 - 70 ?- [place] appropriate supportive measures ?- Adequate hydration and oxygenation, minimize physical restraints ?- Orienting stimuli to avoid day and night confusion ?- If symptoms do no resolve consider MRI brain/ EEG ? Sign Out: ? Discussed with Emergency Department Provider Advanced Imaging:CTA Head and Neck Completed. LVO:No Patient is not a candidate for EBER Metrics: Last Known Well: 01/20/2025 04:00:07 Arrival Time: 01/20/2025 06:45:07 Initial Response Time: 01/20/2025 06:49:32Symptoms: altered mental status. Initial patient interaction: 01/20/2025 06:55:37 NIHSS Assessment Completed: 01/20/2025 07:11:48Patient is not a candidate for Thrombolytic. Thrombolytic Medical Decision: 01/20/2025 07:11:56Patient was not deemed candidate for Thrombolytic because of following reasons: Use of NOAC in last [address] Head: I personally reviewed all the CT images that were available to me and it showed: no acute abnormalities Primary Provider Notified of Diagnostic Impression and Management Plan on: 01/20/2025 07:14:47 History of Present Illness:Patient is a 64 year old Male. Patient was brought by EMS for symptoms of altered mental status. Patient is 64-year-old gentleman past medical history significant for stroke, hypertension, A-fib on Eliquis who presents for evaluation of altered mental status. Patient resides at a custodial facility. At baseline he is conversant. His last known normal was at 4 AM. He was found confused and not speaking. He presents to the hospital for further evaluation and neurology is consulted. ? Past Medical History: ?Hypertension ?Atrial Fibrillation ?Coronary Artery Disease ?Stroke Medications: Anticoagulant use:??Yes?Eliquis Antiplatelet use:?Yes?Plavix Reviewed EMR for current medications Allergies:? Reviewed Social History: Drug Use: No Family History: There is no family history of premature cerebrovascular disease pertinent to this consultation ROS : 14 Points Review of Systems was performed and was negative except mentioned in HPI. Past Surgical History: There Is No Surgical History Contributory To Today?s Visit ? Examination: BP(127/48),?Pulse(130),?Blood Glucose(79) 1A: Level of Consciousness - Arouses to minor stimulation?+ 1 1B: Ask Month and Age - Could Not Answer Either Question Correctly?+ 2 1C: Blink Eyes & Squeeze Hands - Performs 0 Tasks?+ 2 2: Test Horizontal Extraocular Movements - Normal?+ 0 3: Test Visual [place] - No Visual Loss?+ 0 4: Test Facial Palsy (Use Grimace if Obtunded) - Normal symmetry?+ 0 5A: Test Left Arm Motor Drift - Some Effort Against [place]?+ 2 5B: Test Right Arm Motor Drift - Some Effort Against [place]?+ 2 6A: Test Left Leg Motor Drift - Some Effort Against [place]?+ 2 6B: Test Right Leg Motor Drift - Some Effort Against [place]?+ 2 7: Test Limb Ataxia (FNF/Heel-[place]) - No Ataxia?+ 0 8: Test Sensation - Normal; No sensory loss?+ 0 9: Test Language/Aphasia - Mute/Global Aphasia: No Usable Speech/Auditory Comprehension?+ 3 10: Test Dysarthria - Mute/Anarthric?+ 2 11: Test Extinction/Inattention - No abnormality?+ 0 NIHSS Score:?18 Pre-Morbid Modified [place] Scale: 0 Points = No symptoms at all Spoke with :?Dr. Solis This consult was conducted in real time using interactive audio and video technology. Patient was informed of the technology being used for this visit and agreed to proceed. Patient located in hospital and provider located at home/office setting. Patient is being evaluated for possible acute neurologic impairment and high probability of imminent or life-threatening deterioration. I spent total of 45 minutes providing care to this patient, including time for face to face visit via telemedicine, review of medical records, imaging studies and discussion of findings with providers, the patient and/or family. Dr Milad Choudhury [facility] For Inpatient follow-up with [facility] physician please call [facility] at . As we are not an outpatient service for any post hospital discharge needs please contact the hospital for assistance. If you have any questions for the [facility] physicians or need to reconsult for clinical or diagnostic changes please contact us via [facility] at . Non-radiologist review of imaging performed to assist with emergent clinical decision-making. Remote physician workstations do not possess the same resolution, calibration, or diagnostic capabilities as hospital-based radiology reading stations, and formal radiologist read is necessary. Signature :Geronimo Choudhury
[2025-01-20 07:18] LABS: Alanine Aminotransferase 25 U/L (10-49); Albumin, Serum 2.9 gm/dL (3.4-4.8); Albumin/Globulin Ratio 1.2 (1.2-2.2); Alcohol, Blood Medical < 3.0 mg/dL (0-10.0); Alkaline Phosphatase 135 U/L (46-116); Anion Gap 15 (7-16); Aspartate Amino Transferase 38 U/L (0-34); BUN/Creatinine Ratio 19 Ratio (12-20); Bilirubin,Total 0.3 mg/dL (0.3-1.2); Blood Urea Nitrogen 64 mg/dL (9-23); Calcium 8.6 mg/dL (8.3-10.6); Calcium (Corrected) 9.5 mg/dL (8.5-10.1); Carbon Dioxide 16.7 mMol/L (20.0-31.0); Chloride 117 mMol/L (98-107); Creatinine (Component) 3.3 mg/dL (0.6-1.3); Globulin 2.4 gm/dL (2.3-3.5); Glucose 89 mg/dL (74-106); Magnesium 1.4 mg/dL (1.6-2.6); Osmolality,Calculated 313 (275-295); Potassium 4.8 mMol/L (3.4-5.1); Sodium 149 mMol/L (136-145); Total Protein 5.3 gm/dL (5.7-8.2); Troponin I 0.037 ng/mL (0.0-0.045); eGFR 20 See Note
--- NOTE | 2025-01-20 07:30 | PC.NURSE ---
PT TURNED FOR RECTAL TEMP AND RECTAL PROBE PUT IN. INCONT OF LARGE SOFT BM. COCCYX WITH MULTIPLE OPEN AREAS AND LARGE OPEN AREA TO MID UPPER BACK OVER THE SPINE WHERE LIGAMENTS ARE SEEN. DR. MARINA CALLED TO ROOM TO SEE WOUNDS. PT WITH BOOTS BOTH FEET AND RIGHT HEEL WITH DOLLAR SIZED RED AREA.
[2025-01-20] MEDS: SODIUM CHLORIDE 0.9% 1000 ML 1,000 ML 999 ML IV ×3 (07:43→08:49)
[2025-01-20] MEDS: cefTRIAXone/D5w 1gm IV premix 1 GM/50 ML BAG IV ×2 (07:44→09:13)
[2025-01-20] MEDS: Magnesium Sulfate 2 GM Ivpb 2 GM/50 ML BAG IV ×2 (07:54→15:03)
[2025-01-20 07:59] LABS: Lactate (Lactic Acid) 1.9 mMol/L (0.4-2.0)
[2025-01-20 08:09] LABS: INR 1.8 (0.9-1.3); Partial Thromboplastin Time 45.9 Seconds (22.0-36.0); Prothrombin Time 18.3 Seconds (9.0-12.2)
[2025-01-20 08:23] LABS: B-Type Natriuretic Peptide 124 pg/mL (0-100)
--- NOTE | 2025-01-20 08:25 | PC.NURSE ---
dr. beltre wanting norepi started
[2025-01-20] MEDS: Norepinephrine/D5W 8mg/250ml 8 MG/250 ML BAG 9.568 MG IV (08:30)
[2025-01-20 08:31] LABS: LDH (Lactate Dehydrogenase) 216 U/L (120-246); Lipase 100 U/L (12-53); Phosphorous 6.1 mg/dL (2.4-5.1); Procalcitonin 0.29 ng/ml (0.0-0.49)
--- NOTE | 2025-01-20 08:44 | PC.NURSE ---
HAVE BEEN UNABLE TO GET B/P. AWARE AND WANTS NOREPI TITRATED UP PER PROTOCOL
[2025-01-20] MEDS: DOXYCYCLINE INJ 100 MG in SODIUM CHLORIDE 0.9% (POP) 100 ML IV (09:37)
[2025-01-20 09:40] LABS: Collection Type, Urine Catheter; Squamous Epithelial Cell,Urine 0 /hpf (0-5)
--- NOTE | 2025-01-20 09:49 | EDNOTE_ITS ---
Emergency Room Addendum Addendum Narrative: 0830: Care assumed from Dr. Solis the previous shift emergency physician. Past medical, surgical, social and family history reviewed. Vitals and home medications reviewed. I will assume the care of the patient at this time. Please refer to the emergency department record for history and examination from initial visit.? 1400: Discussed test HPI, PMHx, lab, radiology results and/or management with resident working with the hospitalist. Will admit for further evaluation and management. Accepts patient for admission. Dr. Solis started the levophed and I monitored. Patient will be admitted for sepsis, hypotension, and an UTI. Results Objective Laboratory: Laboratory Last Values WBC 5.1 Thou/mm3 (3.8-10.6) 01/20/25 06:51 RBC 2.48 Miln/mm3 (4.50-5.90) L 01/20/25 06:51 Hgb 7.5 g/dL (13.5-16.0) L 01/20/25 06:51 Hct 23.4 % (41.0-53.0) L 01/20/25 06:51 MCV 94 fL (80-100) 01/20/25 06:51 MCH 30.2 pg (25.0-35.0) 01/20/25 06:51 MCHC 32.1 g/dl (31.0-37.0) 01/20/25 06:51 RDW Std Deviation 62.4 fL (35.1-43.9) H 01/20/25 06:51 Plt Count 219 Thou/mm3 (140-440) D 01/20/25 06:51 Neut % (Auto) 79 % (37-80) 01/20/25 06:51 Lymph % (Auto) 8 % (10-50) L 01/20/25 06:51 Elbert % (Auto) 2 % (0-12) 01/20/25 06:51 Eos % (Auto) 9 % (0-10) 01/20/25 06:51 Baso % (Auto) 0 % (0-2.5) 01/20/25 06:51 Neut # (Auto) 4.0 Thou/mm3 (1.8-7.7) 01/20/25 06:51 Lymph # (Auto) 0.4 Thou/mm3 (1.0-4.8) L 01/20/25 06:51 Elbert # (Auto) 0.1 Thou/mm3 (0.0-0.8) 01/20/25 06:51 Eos # (Auto) 0.5 Thou/mm3 (0.0-0.5) 01/20/25 06:51 Baso # (Auto) 0.0 Thou/mm3 (0.0-0.2) 01/20/25 06:51 Immature Gran # (Auto) 0.09 Thou/mm3 (0.00-0.00) H 01/20/25 06:51 Absolute Nucleated RBC 0.02 Thou/mm3 (0.00-0.00) H 01/20/25 06:51 Immature Gran % 2 % (0-0) H 01/20/25 06:51 Nucleated RBC % 0 /100 WBC (0) 01/20/25 06:51 PT 18.3 Seconds (9.0-12.2) H 01/20/25 06:51 INR 1.8 (0.9-1.3) H 01/20/25 06:51 APTT 45.9 Seconds (22.0-36.0) H 01/20/25 06:51 Sodium 149 mMol/L (136-145) H 01/20/25 06:51 Potassium 4.8 mMol/L (3.4-5.1) 01/20/25 06:51 Chloride 117 mMol/L (98-107) H 01/20/25 06:51 Carbon Dioxide 16.7 mMol/L (20.0-31.0) L 01/20/25 06:51 Anion Gap 15 (7-16) 01/20/25 06:51 BUN 64 mg/dL (9-23) H 01/20/25 06:51 Creatinine 3.3 mg/dL (0.6-1.3) H 01/20/25 06:51 Estim Creat Clear Calc Not Performed. 01/20/25 06:51 eGFR 20 See Note (60-) L 01/20/25 06:51 BUN/Creatinine Ratio 19 Ratio (12-20) 01/20/25 06:51 Glucose 89 mg/dL (74-106) 01/20/25 06:51 Calculated Osmolality 313 (275-295) H 01/20/25 06:51 Lactic Acid 1.3 mMol/L (0.4-2.0) 01/20/25 11:27 Calcium 8.6 mg/dL (8.3-10.6) 01/20/25 06:51 Corrected Calcium 9.5 mg/dL (8.5-10.1) 01/20/25 06:51 Phosphorus 6.1 mg/dL (2.4-5.1) H 01/20/25 06:51 Magnesium 1.4 mg/dL (1.6-2.6) L 01/20/25 06:51 Total Bilirubin 0.3 mg/dL (0.3-1.2) 01/20/25 06:51 AST 38 U/L (0-34) H 01/20/25 06:51 ALT 25 U/L (10-49) 01/20/25 06:51 Alkaline Phosphatase 135 U/L (46-116) H 01/20/25 06:51 Lactate Dehydrogenase 216 U/L (120-246) 01/20/25 06:51 Troponin I 0.037 ng/mL (0.0-0.045) 01/20/25 06:51 B-Natriuretic Peptide 124 pg/mL (0-100) H 01/20/25 06:51 Total Protein 5.3 gm/dL (5.7-8.2) L 01/20/25 06:51 Albumin 2.9 gm/dL (3.4-4.8) L 01/20/25 06:51 Globulin 2.4 gm/dL (2.3-3.5) 01/20/25 06:51 Albumin/Globulin Ratio 1.2 (1.2-2.2) 01/20/25 06:51 Lipase 100 U/L (12-53) H 01/20/25 06:51 Procalcitonin 0.29 ng/ml (0.0-0.49) 01/20/25 06:51 TSH 9.68 uIU/mL (0.55-4.78) H D 01/20/25 06:51 Free T4 0.84 ng/dL (0.89-1.76) L 01/20/25 06:51 Ur Collection Type Catheter 01/20/25 09:20 Urine Color Yellow (Lt Yel-Yel) 01/20/25 09:20 Urine Clarity Hazy (Clear/Hazy) 01/20/25 09:20 Urine pH 6.0 (5.0-7.0) 01/20/25 09:20 Ur Specific [place] 1.026 (1.001-1.035) 01/20/25 09:20 Urine Protein 1+ (Neg - Trace) A 01/20/25 09:20 Urine Glucose (UA) Negative (Negative) 01/20/25 09:20 Urine Ketones Negative (Negative) 01/20/25 09:20 Urine Blood 2+ (Negative) A 01/20/25 09:20 Urine Nitrite Negative (Negative) 01/20/25 09:20 Urine Bilirubin Negative (Negative) 01/20/25 09:20 Urine Urobilinogen (Auto) 3.0 mg/dL (0.0-1.0) 01/20/25 09:20 Ur Leukocyte Esterase Positive (Negative) 01/20/25 09:20 Urine RBC 73 /hpf (0-3) H 01/20/25 09:20 Urine WBC 42 /hpf (0-5) H 01/20/25 09:20 Ur Squamous Epith Cells 0 /hpf (0-5) 01/20/25 09:20 Urine Bacteria None (None) 01/20/25 09:20 Urine Yeast (Budding) Present (None) A 01/20/25 09:20 Ur Culture Indicated? Yes 01/20/25 09:20 Urine Opiates Screen Negative (Negative) 01/20/25 09:20 Urine Fentanyl Screen Negative (Negative) 01/20/25 09:20 Ur Barbiturates Screen Negative (Negative) 01/20/25 09:20 U Amphetamin/Meth Scrn Negative (Negative) 01/20/25 09:20 U Benzodiazepines Scrn Negative (Negative) 01/20/25 09:20 U Cocaine Metab Screen Negative (Negative) 01/20/25 09:20 U Marijuana (THC) Screen Negative (Negative) 01/20/25 09:20 Ethyl Alcohol < 3.0 mg/dL (0-10.0) 01/20/25 06:51 Imaging: Procedure(s): XR chest 1V post procedure Accession Number(s): [id number] cc: Christine Kay MD; Carlos Saunders MD; Pedro Tavarez MD~ EXAMINATION: AP chest single view TECHNIQUE: AP portable semiupright chest single view Date and time: January 20 1 hours, comparison October 20, 2024 INDICATIONS: Post central line placement FINDINGS: Right internal jugular central line tip SVC satisfactory position Atelectasis versus mild pneumonia left base No pneumothorax Mild prominence left ventricle IMPRESSION: Right internal jugular central line tip SVC satisfactory position No pneumothorax, Dictated By: Carlos Saunders MD Procedure(s): CT angio stroke protocol Accession Number(s): [id number] cc: Carlos Saunders MD; Luther Solis MD~ Examination: CTA carotids with intravenous contrast CTA brain, head with intravenous contrast. 2-D sagittal, coronal reconstructions. 3-D reconstructions. Exam date and time: January 20, 2025, 0700 hours INDICATION: Stroke alert, onset focal neurologic deficit beginning 1 hour ago including altered mental status CTDI: vol (mGy) 46.99 DLP: (mGycm) 573 Technique: Multiple CTA axial brain, head carotid images post intravenous contrast injection 75 cc, [id number]. 2-D sagittal, coronal reconstructions. 3-D reconstructions, 3-D post processing including vascular maximum intensity projection images. Low dose protocols were performed. One or more of the following dose reduction techniques were used; automated exposure control, adjustment of the mA and/or KV according to patient size, use of iterative reconstruction technique. Findings: Bilateral thyroid nodules including 15 mm calcified left thyroid nodule Heavy calcification left carotid bifurcation, 40% stenosis left carotid bifurcation origin left internal carotid artery Mild calcification right carotid bifurcation Right internal carotid artery is attenuated diffusely although patent Dominant left vertebral artery in the neck, no critical vertebral artery stenoses in the neck Heavy calcification intracranial right vertebral artery Basilar artery does fill although it is attenuated Significant stenosis P1 segment left posterior cerebral artery, axial image 66 Significant calcification juxtasellar portions of both internal carotid arteries Significant irregularity of the M1 segment left middle cerebral artery M1 segments middle cerebral arteries and middle cerebral artery trifurcation vessels do not demonstrate definite large vessel occlusions Anterior cerebral arteries intact The 3D images are very limited IMPRESSION: 40% stenosis left carotid bifurcation Right internal carotid artery is diffusely attenuated although patent Significant stenosis P1 segment left posterior cerebral artery Significant calcification juxtasellar portions of both internal carotid arteries Significant irregularity M1 segment left middle cerebral artery No definite large vessel occlusions involving middle cerebral posterior cerebral or anterior cerebral arteries Dictated By: Carlos Saunders MD Procedure(s): CT stroke protocol Accession Number(s): [id number] cc: Carlos Saunders MD; Luther Solis MD~ Examination: CT brain head without contrast. 2-D sagittal coronal reconstructions Date and time: January 20, 2025, 0658 hours, comparison December 31, 2024 INDICATIONS: Stroke alert, onset focal neurologic deficit today CTDI: vol (mGy): 84.3 DLP: (mGycm): 2180 Technique: Multiple CT axial sections of the brain have been obtained, 5 mm slice thickness. Contrast has not been administered. 2-D sagittal, coronal reconstructions have been obtained Low dose protocols were performed. One or more of the following dose reduction techniques were used; automated exposure control, adjustment of the mA and/or KV according to patient size, use of iterative reconstruction technique. Findings: No significant ventricular enlargement. Minimal chronic subdural hygromas peripheral to the cerebral hemispheres for instance image 14 Axial images 19, 20 and 21 demonstrate small hyperdensities left cerebral sulci which may be artifactual, small areas of subarachnoid hemorrhage not excluded No mass effect Fourth ventricle is midline Cranial vault intact IMPRESSION: Axial images 19, 20, 21 demonstrate small hyperdensities left cerebral sulci which may be artifactual, small areas of subarachnoid hemorrhage not excluded, the appearance should be clinically correlated Dictated By: Carlos Saunders MD Procedure(s): XR chest 1V portable Accession Number(s): [id number] cc: Christine Kay MD; Carlos Saunders MD; Luther Solis MD~ EXAMINATION: AP chest single view TECHNIQUE: AP portable semiupright chest single view Date and time: January 20, 2025, 0759 hours, comparison January 03, 2025 INDICATION: Chest pain shortness of breath today FINDINGS: Minor prominence left ventricle Subsegmental atelectasis left base Mild elevation left hemidiaphragm. No lobar pneumonia or pulmonary edema. Mild osteopenia IMPRESSION: Subsegmental atelectasis left base Dictated By: Carlos Saunders MD Procedure(s): MR head/brain wo con Accession Number(s): [id number] cc: Semaj Miller MD; Christine Kay MD; Carlos Saunders MD~ Examination: MRI brain without intravenous contrast. Date and time of exam: January 20, 2025, 1210 hours, comparison October 20, 2023 INDICATIONS: Artifact versus subarachnoid hemorrhage in the left parietal sulci on CT stroke alert brain scan January 20, 2025 0658 hours, stroke alert Technique: Multiple axial and sagittal images of the brain obtained. Siemens high-resolution 1.5 Leanna short bore scanners utilized. Sagittal sections, T1-weighted, TR 500, TE 14, are performed. Axial sections proton-density and T2-weighted have been obtained. Inversion recovery axial images, TR 9, 260, TE 111, TI 2500. Diffusion weighted images, axial sections, TR 4800, TE 128, B value 1000 Axial sections, ADC map, TR 4800, TE 128 Findings: Enlargement of the sella turcica is not present. The optic chiasm and infundibular are not remarkable. Prepontine and interpeduncular cisterns are not enlarged. There is no localized enlargement of the medulla or joanie. Fourth ventricle and cerebellar tonsils appear normal in position. No subacute area of hemorrhage density is seen. Mass in the cerebellopontine angle region is not evident. Globes symmetrical. Orbital musculature including medial lateral rectus muscles do not exhibit abnormality. Diffusion-weighted images demonstrate no definite focus of restricted diffusion Chronic subdural fluid accumulations, largest in the left cerebral hemisphere, FLAIR image 20 measuring 15 mm in thickness. Increased white matter signal mild Mass effect upon the ventricular system is not identified. Impression: Chronic subdural hygromas No acute infarct No definite acute hemorrhage I would still strongly recommend short-term follow-up CT brain scan, in 12 hours with specific attention to the left parietal sulci Dictated By: Carlos Saunders MD
--- NOTE | 2025-01-20 09:50 | PC.NURSE ---
ONLY INTERMITTENTL;Y GETTING B/P TO READ
--- NOTE | 2025-01-20 09:55 | PC.NURSE ---
DELAY TITRATING NOREPI SINCE 3 INTENSIVISTS IN ROOM AT PRESENT
--- NOTE | 2025-01-20 10:02 | PC.NURSE ---
PER PROFESSOR IN FAMILY STUDIES, RECHECK B/P IN FEW MIUTES BEFORE LOWERING DRIP
[2025-01-20 10:15] LABS: Bilirubin,Urine Negative (Negative); Blood,Urine 2+ (Negative); Budding Yeast,Urine Present; Color,Urine Yellow (Lt Yel-Yel); Glucose, Urine Negative (Negative); Ketones,Urine Negative (Negative); Leukocyte Esterase,Urine Positive (Negative); Nitrite,Urine Negative (Negative); PH,Urine 6.0 (5.0-7.0); Protein,Urine 1+ (Neg - Trace); RBC,Urine 73 /hpf (0-3); Specific Gravity,Urine 1.026 (1.001-1.035); Urobilinogen,Urine 3.0 mg/dL (0.0-1.0); WBC,Urine 42 /hpf (0-5)
[2025-01-20 10:17] LABS: Clarity,Urine Hazy (Clear/Hazy); Culture Indicated,Urine Yes
--- NOTE | 2025-01-20 10:25 | PC.NURSE ---
CALLED TO GET MRI SCREENING DONE AND NO ANSWER
--- NOTE | 2025-01-20 10:31 | PC.NURSE ---
LEAVING RAJAN AT CURRENT RATE UNTIL GET 2 MORE READABLE B/P'S
[2025-01-20 10:32] LABS: Amphetamine/Methamp Scrn,U Negative (Negative); Barbiturate Screen,Urine Negative (Negative); Benzodiazepines Screen,Urine Negative (Negative); Benzoylecgonine Screen, Ur Negative (Negative); Fentanyl Screen,Urine Negative (Negative); Opiate Screen,Urine Negative (Negative); THC Screen,Urine Negative (Negative)
--- NOTE | 2025-01-20 10:49 | PC.NURSE ---
attempted to call and no answer
--- NOTE | 2025-01-20 10:52 | EVENTNT_ITS ---
<Statement entered by Shayna Allen MD - 01/21/25 11:05> TOTAL CC TIME: 65 MIN I saw and evaluated the patient. I reviewed the resident?s note and agree with findings and plan as documented in the resident?s note. <Statement entered by Pedro Anne MD - 01/20/25 18:25> I have reviewed the note and agree with the resident's assessment & plan with exceptions as below. I have personally reviewed labs, imaging, home meds/prior records, examined the patient, formulated and discussed management plan with my attending. Pedro Anne PGY2 Disclaimer: Even though this this note was dictated by speech recognition and even though it was carefully revised there may still be minor errors in wilderness guide due to voice recognition software. Documentation for date of: 01/20/25 Event Note Event Note: ICU team was made aware of this patient in the ED as he was put on Levophed drip. Patient was seen and evaluated at bedside. Patient was noted to be more altered compared to baseline of previous hospitalization from 12/31 to 01/05 of this year. The patient initially came to [facility] ED from the nursing facility [facility] for altered mental status (last known well 0400) and was worked up for suspected stroke. Code stroke was called in ED and the patient received CT head and CTA head/neck. Teleneurology was consulted, who noted NIHSS score of [address] head does not reveal any acute abnormalities. In-house radiology later read CT head as demonstrating small hyperdensities in the left cerebral sulcali and could not exclude subarachnoid hemorrhage. The case was discussed with the teleneurologist, who noted that neurosurgery should be consulted and MRI brain should be performed to identify any possible hemorrhage. When patient was evaluated in the ED by ICU team, the patient was unresponsive to questioning and had no purposeful movement. The patient had multiple scattered scabs throughout his body with dry flaky skin especially pronounced in his lower extremities. Dried blood was noticed in between the toes bilaterally. Patient noted to be shivering with cool extremities. Bedside ultrasound was used to identify the patient's IVC, hepatic vein, and heart. IVC and hepatic vein appeared minimally compressible, suggestive of adequate fluid resuscitation. Patient's heart appeared to be bradycardic but with adequate motion. Additionally, during the evaluation, the patient's blood pressure could not be properly assessed as blood pressure was variable between high and low. Will recommend assessment with MRI to rule out any possible cerebral hemorrhage, and if negative for hemorrhage, ICU team will admit the patient for further care. Attempted to contact point of contact, the patient's , and next of kin, the patient's mother, multiple times, but unsuccessful every time. Central line insertion performed for continuing increasing Levophed requirements for the patient's shock. Patient plan of care was discussed with the attending produce specialist, Dr. Allen and senior resident Dr. Ness (PGY-2). Michel Maldonado, PGY-1
--- NOTE | 2025-01-20 10:54 | PC.NURSE ---
called pt's and mother and no answers. dr. Miller informed and will call MRI to see if can do without screening form
--- NOTE | 2025-01-20 11:23 | PC.NURSE ---
PER DR. IRIZARRY, DO NOT TITRATE NOREPI DRIP DOWN AT THIS TIME
[2025-01-20 11:25] LABS: Free T4 (Free Thyroxine) 0.84 ng/dL (0.89-1.76); Thyroid Stimulating Hormone 9.68 uIU/mL (0.55-4.78)
[2025-01-20 11:30] LABS: Lactate (Lactic Acid) 1.3 mMol/L (0.4-2.0)
--- NOTE | 2025-01-20 12:43 | PC.NURSE ---
[employer]S HERE TO PUT IN CENTRAL LINE. STILL UNABLE TO GET FAMILY ON PHONE FOR CONSENT
--- NOTE | 2025-01-20 12:49 | PC.NURSE ---
FROM 1150 THRU 1240 UNABLE TO TITRATE NOREPI TO PT BEING IN THE MRI SCANNER
--- NOTE | 2025-01-20 12:51 | PC.NURSE ---
PER INTENSIVISTS'S OKAY TO NOT TITRATE NOREPI DRIP WHILE THEY ARE IN THE ROOM PUTTING IN A CENTRAL LINE
--- NOTE | 2025-01-20 13:49 | XR_ITS ---
EXAMINATION: AP chest single view TECHNIQUE: AP portable semiupright chest single view Date and time: January 20-5139 1 hours, comparison October 20, 2024 INDICATIONS: Post central line placement FINDINGS: Right internal jugular central line tip SVC satisfactory position Atelectasis versus mild pneumonia left base No pneumothorax Mild prominence left ventricle IMPRESSION: Right internal jugular central line tip SVC satisfactory position No pneumothorax,
--- NOTE | 2025-01-20 14:21 | ESOP_ITS ---
<Statement entered by Shayna Allen MD - 01/21/25 11:04> I was present for the entire duration of the procedure and was immediately available to provide assistance. PROCEDURES: Procedure Date / Time 01/20/25 1320 Central Line Placement Right IJ: Indication(s): shock Informed consent obtained: procedure done urgently Time out done, and the following verified: correct patient, side and site, procedure, patient position and implants and/or equipment Patient placed on monitor/pulse ox: Yes Hand Hygiene: alcohol-based hand rub Max Sterile Barrier Techniques used: cap, mask, sterile gown, sterile gloves and sterile full body drape Central line prep: Chlorhexidine scrub Local anesthesia used: lidocaine 1% Amount of anesthesia used (mL): 5 Ultrasound used for placement: Yes Sterile Technique if Ultrasound used, including sterile gel: yes Central line lumen inserted: triple Post procedure: sutured in place, good blood return, all ports aspirated, flushed, capped and sterile dressing applied Post procedure x-ray: tip of catheter in good position and no pneumothorax seen Patient tolerated procedure: well and no complications EBL(ml): 5 Complications: none Procedure comment: Procedure comment: The patient was placed in Trendelenburg position. The right neck was prepped using chlorhexidine scrub and draped in sterile fashion. Using real-time ultrasound, with sterile probe cover and sterile gel, the introducer needle was inserted into the vein under direct ultrasound visualization. Venous blood was withdrawn. The syringe was removed and a guidewire was advanced into the introducer needle. The guidewire was visualized in the appropriate vein by ultrasound. A small incision was made at the skin surface with a scalpel and the introducer needle was exchanged for a dilator over the guidewire. After appropriate dilation was obtained, the dilator was exchanged over the wire for a central venous catheter. The wire was removed and the catheter was sutured in place. A biopatch was placed at the insertion site. A sterile op-site was placed over the catheter and biopatch. The patient tolerated the procedure without any hemodynamic compromise. At time of procedure completion, all ports aspirated and flushed properly. Chest X Ray afterwards pending official read, but appears in good position. Case disclosed with Attending Dr. Alejandro Maldonado, PGY 1
[2025-01-20] MEDS: Norepinephrine/D5W 8mg/250ml 8 MG/250 ML BAG 36.358 MG IV (14:28)
[2025-01-20] MEDS: PIPER/TAZO 3.375 GM PREMIX 3.375 GM/50 ML BAG IV ×2 (14:31→20:06)
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
--- NOTE | 2025-01-20 14:42 | PC.NURSE ---
incont of moderate bm. Cleaned up and new incont breif put on
--- NOTE | 2025-01-20 14:54 | PC.NURSE ---
BLOOD DRAWN FROM CENTRAL LINE AFTER WASTE 10 AN GIVEN TO PLEBOTIMIST, THEN FLUSHED WITH 10 ML'S NS
[2025-01-20 15:02] LABS: Base Excess, Venous -10 (-3-3); Lactate (Lactic Acid) 1.1 mMol/L (0.4-2.0); O2 Saturation, Venous 92 % (96-97); PCO2, Venous 27 mmHg (36-56); PO2, Venous 82 mmHg (15-58); pH, Venous 7.35 (7.33-7.66)
[2025-01-20] MEDS: VANCOMYCIN/D5W 1,250 MG IVPB 250 ML 120 MG IV (15:06)
[2025-01-20 15:23] LABS: Albumin, Serum 2.6 gm/dL (3.4-4.8); Anion Gap 15 (7-16); BUN/Creatinine Ratio 21 Ratio (12-20); Blood Urea Nitrogen 61 mg/dL (9-23); Calcium 7.4 mg/dL (8.3-10.6); Calcium (Corrected) 8.5 mg/dL (8.5-10.1); Chloride 120 mMol/L (98-107); Creatinine (Component) 2.9 mg/dL (0.6-1.3); Estimated Creatinine Clearance 31.6 mL/min (>60); Glucose 116 mg/dL (74-106); Osmolality,Calculated 312 (275-295); Phosphorous 5.3 mg/dL (2.4-5.1); Potassium 4.1 mMol/L (3.4-5.1); Sodium 148 mMol/L (136-145); eGFR 24 See Note
[2025-01-20 15:44] LABS: Carbon Dioxide 13.1 mMol/L (20.0-31.0)
[2025-01-20 15:53] LABS: INR 1.9 (0.9-1.3); Partial Thromboplastin Time 52.0 Seconds (22.0-36.0); Prothrombin Time 19.3 Seconds (9.0-12.2)
[2025-01-20 16:41] LABS: Hematocrit 21.7 % (41.0-53.0)
[2025-01-20] MEDS: HYDROCORTISONE SOD SUCC INJ 100 MG 2 ML VIAL IV (16:46)
[2025-01-20] MEDS: Sodium Bicarb Inj 8.4% SYR 50 ML SYRINGE IV ×3 (16:47→21:41)
[2025-01-20 16:52] LABS: Hemoglobin 6.8 g/dL (13.5-16.0)
[2025-01-20 16:58] LABS: Albumin, Serum 2.6 gm/dL (3.4-4.8); Anion Gap 15 (7-16); BUN/Creatinine Ratio 20 Ratio (12-20); Blood Urea Nitrogen 58 mg/dL (9-23); Calcium 7.5 mg/dL (8.3-10.6); Calcium (Corrected) 8.6 mg/dL (8.5-10.1); Chloride 120 mMol/L (98-107); Creatinine (Component) 2.9 mg/dL (0.6-1.3); Estimated Creatinine Clearance 31.6 mL/min (>60); Glucose 141 mg/dL (74-106); Osmolality,Calculated 312 (275-295); Phosphorous 5.3 mg/dL (2.4-5.1); Potassium 4.2 mMol/L (3.4-5.1); Sodium 148 mMol/L (136-145); eGFR 24 See Note
[2025-01-20 17:10] LABS: Carbon Dioxide 13.0 mMol/L (20.0-31.0)
[2025-01-20 17:38] LABS: C-Reactive Protein 8.2 mg/dL (0.0-0.9)
[2025-01-20 19:03] LABS: Hematocrit 20.5 % (41.0-53.0)
[2025-01-20 19:05] LABS: Hemoglobin 6.5 g/dL (13.5-16.0)
[2025-01-20] MEDS: Norepinephrine/D5W 8mg/250ml 8 MG/250 ML BAG 40.185 MG IV (20:27)
[2025-01-20 21:25] LABS: Albumin, Serum 2.6 gm/dL (3.4-4.8); Anion Gap 14 (7-16); BUN/Creatinine Ratio 20 Ratio (12-20); Blood Urea Nitrogen 59 mg/dL (9-23); Calcium 7.8 mg/dL (8.3-10.6); Calcium (Corrected) 8.9 mg/dL (8.5-10.1); Carbon Dioxide 16.7 mMol/L (20.0-31.0); Chloride 118 mMol/L (98-107); Creatinine (Component) 2.9 mg/dL (0.6-1.3); Estimated Creatinine Clearance 27.3 mL/min (>60); Glucose 127 mg/dL (74-106); Osmolality,Calculated 314 (275-295); Phosphorous 5.6 mg/dL (2.4-5.1); Potassium 4.4 mMol/L (3.4-5.1); Sodium 149 mMol/L (136-145); eGFR 24 See Note
[2025-01-20 22:26] LABS: Hematocrit 24.4 % (41.0-53.0)
[2025-01-20 22:27] LABS: Hemoglobin 7.7 g/dL (13.5-16.0)
[2025-01-21] VITALS (110 sets, daily range): BP systolic 70–173; BP diastolic 47–110; PULSE 58–136; RESP 5–100; TEMP 35.7–36.4; O2SAT 76–100; BMI 25.5
--- NOTE | 2025-01-21 01:00 | XR_ITS ---
Examination: CT brain head without contrast. 2-D sagittal coronal reconstructions Date and time of exam: January 21, 2025, 0104 hours, comparison January 20, 2025 INDICATIONS: Artifact versus subtle subarachnoid hemorrhage left parietal sulci on CT examination of the head January 20, 2025 CTDI: vol (mGy): 68.40 DLP: (mGycm): 1734 Technique: Multiple CT axial sections of the brain have been obtained, 5 mm slice thickness. Contrast has not been administered. 2-D sagittal, coronal reconstructions have been obtained Low dose protocols were performed. One or more of the following dose reduction techniques were used; automated exposure control, adjustment of the mA and/or KV according to patient size, use of iterative reconstruction technique. Findings: Images are degraded by patient motion Subtle isodense subdural hemorrhage peripheral to the left parietal convexity measuring up to 8 mm in thickness Minimal subdural hemorrhage also involving the cerebral falx and cerebellar tentorium No midline shift Ventricles are not enlarged IMPRESSION: Subtle isointense acute subdural hemorrhage peripheral to the left parietal convexity which would be better demonstrated with brain MRI without contrast follow-up Minimal subdural hemorrhage involving the cerebral falx and cerebellar tentorium No mass effect upon the ventricular system The entire study is limited secondary to patient motion
[2025-01-21 01:02] LABS: Albumin, Serum 2.7 gm/dL (3.4-4.8); Anion Gap 14 (7-16); BUN/Creatinine Ratio 20 Ratio (12-20); Blood Urea Nitrogen 59 mg/dL (9-23); Calcium 7.9 mg/dL (8.3-10.6); Calcium (Corrected) 8.9 mg/dL (8.5-10.1); Carbon Dioxide 18.2 mMol/L (20.0-31.0); Chloride 119 mMol/L (98-107); Creatinine (Component) 3.0 mg/dL (0.6-1.3); Estimated Creatinine Clearance 26.4 mL/min (>60); Glucose 125 mg/dL (74-106); Osmolality,Calculated 317 (275-295); Phosphorous 6.1 mg/dL (2.4-5.1); Potassium 4.4 mMol/L (3.4-5.1); Sodium 151 mMol/L (136-145); eGFR 23 See Note
--- NOTE | 2025-01-21 03:34 | PRELIM_ITS ---
PRELIM ADDENDUM An isodense subdural hemorrhage along the left parietal convexity and right parietooccipital convexity also seen in prior MRI Report Electronically Signed By: Filemon Lechuga 01/21/2025 7:17:51 AM [EST] ORIGINAL PRELIM REPORT: CT scan of the head without intravenous contrast (axial sections with sagittal and coronal reformats). January 21, 2025 at 0104 hours Clinical history: R/O subarachnoid hemorrhage (left parietal sulci) Comparison: Correlated with the prior MR study dated January 20, 2025 (prior CT is not available for comparison). Findings: Several images are degraded due to motion artifacts making evaluation somewhat suboptimal. There is acute isodense subdural hemorrhage along the left parietal convexity, measuring 9 mm in maximum thickness. There is mass effect with effacement of the adjacent sulci. There is also acute isodense subdural hemorrhage along the right parietooccipital convexity, measuring 7 mm in maximum thickness (axial image 27/55, coronal image 55/71). There is thin acute subdural hemorrhage along the posterior falx cerebri and bilateral tentorium (1-2 mm thickness). There is severe atheromatous calcification of the intracranial internal carotid and vertebral arteries. There is mild volume loss with chronic small vessel ischemic changes. Small hyperdensities are noted in bilateral cerebellar hemispheres, possibly dentate calcifications. The calvarium is intact. There are partial sclerotic changes of bilateral mastoid air cells and partial opacification of the left mastoid air cells. Mild mucosal thickening is seen in bilateral ethmoid sinuses. Impression: Limited evaluation due to motion artifact. 1. Acute isodense subdural hemorrhage along the left parietal convexity and right parietooccipital convexity with mass effect as described above. 2. Thin acute subdural hemorrhage along the posterior falx cerebri and bilateral tentorium (1-2 mm thickness). 3. No evidence of midline shift. 4. Other findings as described above. Suggest clinical correlation and follow up accordingly. Discussion Details: Results verbally communicated to Margaret Calderón RN by Dr. Malone at 05:05 AM ET 01/21/2025. A call back number was provided for a Physician to Physician call communication Report Electronically Signed By: Lawrence Malone 01/21/2025 3:34:02 AM [EST]
--- NOTE | 2025-01-21 04:38 | EVENTNT_ITS ---
Documentation for date of: 01/21/25 Event Note Event Note: Stroke alert due to concern for acute changes in Repeated CT Brain: This is 64-year-old male with past medical history of A-fib on Eliquis, CAD s/p multiple stents on Plavix, CVA, CKD, Castorena's esophagus, previous UGIB, esophageal ulcers, and chronic osteomyelitis was admitted to the ICU in the setting of septic shock with possible source of infection is Urine with Enterococus Faecalis infection from previous microbiology and concern for Brain bleed. On 01/20/25, He presented from [facility] in the morning with altered mental status and was also found to have low blood pressure and hypot hermia therefore he was started on Levophed and warming measures were performed. He was unable to provide any history therefore majority of history was taken from chart review. reported to day team that patient was able to eat and communicate with her with yes or no, but that prior to day of admit he was less responsive and he also had a fall in the facility. She stated she was unaware if he hit his head or not. Earlier in the morning, Stroke alert was called tele- neurology was consulted and patient did have head CT which showed concerns for a hypodensity which could include subarachnoid hemorrhage and differentials and had/neck CTA that show M1 segment of the left middle cerebral artery irregularity but no LVO therefore day team spoke with teleneurology given that they had stated that head CT and CTA were negative. MRI was taken and did not show any acute infarct or definite hemorrhage, but did recommend follow-up CT in 12 hours. On 01/21/25 At 1 AM, Repeat Head CT read showed acute isodense subdural hemorrhage along the left parietal convexity and right parietooccipital convexity with mass effect as described above and Thin acute subdural hemorrhage along the posterior falx cerebri and bilateral tentorium (1-2 mm thickness).Stroke alert was performed at 4:33 given multiple areas of hemorrhage in brain. Patient was awake only oriented to his name and not to time or place. He usually say yes or no per patients . Tele-neuro was consulted neuro exam revealed pupils equal and reactive to light. 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 Patient grimaces while painful stimuli given both lower extremities but no spontaneous movement of both LE. Tele neuro rec to review the scans with tele-radio if they have seen isodense or hyperdense subdural hemorrhage since acute bleed is usually hyperdense and if they noted any drastic changes in the repeat CT for the subdural bleed compared to previous CT. Tele-neuro did stated that he saw tiny spots of bleed along left parietal convexity relatively unchanged from the Previous CT imaging performed on 01/20/25 in the presence of charge Nurse and RN. Tele-[facility] rec: Monitor neuro checks/VS q4h with telemetry. Recommend fall precautions and seizure precautions. Strict goal SBP b/w 100-140 afterwards. Hold?antiplatelet?therapy/NSAIDS/Anticoagulation Warfarin/Coumadin/DOAC reversal per hospital protocol Repeat CT head in first 24 hrs or sooner if needed. Get spot EEG. PT/OT/ST eval. Get NEUROSRUGERY eval. Give Lorazepam 2 mg IV PRN for seizures > 3 min or > 3 episodes in one hour. Don't give more than 6-8 mg total in 24 hour period. Please avoid aminophylline, theophylline, isoniazid, lindane, metronidazole, nalidixic acid, meropenem/imipenem, cefepime, TCAs, bupropion, cyclosporine, chlorambucil, tramadol, clozapine, or other drugs which can lower seizure threshold. Keppra loading dose 1.5 g x1 followed by 500 mg keppra twice daily due to concern for seizures, recommended neuro-surg recomendations. Reveral of eliquis whichever is available as INR and PTT still elevated and time of last dose of anticoagulation given is unknown. He rec to give if INR is above 2. We do have Kcentra which has factor X available as we dont carry andexanet issa which is reversal for eliquis. Rec to keep monitoring CBC and transfuse PRBC if needed. Orders placed for neuro-surg evaluation/recs. I spoke to [facility] with a brief history course with imagings results and they are reviewing the documents. Currently awaiting call back from tele-radiology to discuss brain CT imaging. is not updated yet given this point of time as we are still waiting to get finalized review of the brain imaging from tele-radio and [facility]. -- Case disclosed with attending Physician, Dr Giselle Corado MD PGY3
[2025-01-21 05:11] LABS: Basophils # (Auto) 0.0 Thou/mm3 (0.0-0.2); Basophils % (Auto) 0 % (0-2.5); Eosinophils # (Auto) 0.0 Thou/mm3 (0.0-0.5); Eosinophils % (Auto) 1 % (0-10); Hematocrit 23.2 % (41.0-53.0); Immature Granulocytes Auto 0.07 Thou/mm3 (0.00-0.00); Lymphocytes # (Auto) 0.4 Thou/mm3 (1.0-4.8); Lymphocytes % (Auto) 8 % (10-50); Mean Corpuscular HGB Conc 31.9 g/dl (31.0-37.0); Mean Corpuscular Hemoglobin 28.6 pg (25.0-35.0); Mean Corpuscular Volume 90 fL (80-100); Monocytes # (Auto) 0.1 Thou/mm3 (0.0-0.8); Monocytes % (Auto) 2 % (0-12); Neutrophils # (Auto) 5.1 Thou/mm3 (1.8-7.7); Neutrophils % (Auto) 89 % (37-80); Nucleated Red Blood Cell # 0.03 Thou/mm3 (0.00-0.00); Nucleated Red Blood Cell % 1 /100 WBC (0); Platelet Count 204 Thou/mm3 (140-440); RDW Standard Deviation 70.5 fL (35.1-43.9); Red Blood Count 2.59 Miln/mm3 (4.50-5.90); White Blood Count 5.8 Thou/mm3 (3.8-10.6)
[2025-01-21 05:12] LABS: Hemoglobin 7.4 g/dL (13.5-16.0)
--- NOTE | 2025-01-21 05:22 | PC.NURSE ---
STROKE ALERT CALLED @[id number] DUE TO NEW HEAD [address] RESULTS
[2025-01-21 05:28] LABS: INR 1.7 (0.9-1.3); Partial Thromboplastin Time 48.3 Seconds (22.0-36.0); Prothrombin Time 17.1 Seconds (9.0-12.2)
[2025-01-21] MEDS: levETIRAcetam INJ 100 MG/ML VIAL 5ML 1500 MG IVP (05:32)
[2025-01-21 05:40] LABS: Alanine Aminotransferase 29 U/L (10-49); Albumin, Serum 2.7 gm/dL (3.4-4.8); Albumin/Globulin Ratio 1.3 (1.2-2.2); Alkaline Phosphatase 200 U/L (46-116); Anion Gap 13 (7-16); Aspartate Amino Transferase 42 U/L (0-34); BUN/Creatinine Ratio 20 Ratio (12-20); Bilirubin,Total 0.3 mg/dL (0.3-1.2); Blood Urea Nitrogen 59 mg/dL (9-23); Calcium 7.6 mg/dL (8.3-10.6); Calcium (Corrected) 8.6 mg/dL (8.5-10.1); Carbon Dioxide 17.6 mMol/L (20.0-31.0); Chloride 120 mMol/L (98-107); Creatinine (Component) 3.0 mg/dL (0.6-1.3); Estimated Creatinine Clearance 26.4 mL/min (>60); Globulin 2.1 gm/dL (2.3-3.5); Glucose 116 mg/dL (74-106); Magnesium 2.0 mg/dL (1.6-2.6); Osmolality,Calculated 317 (275-295); Phosphorous 5.8 mg/dL (2.4-5.1); Potassium 4.2 mMol/L (3.4-5.1); Sodium 151 mMol/L (136-145); Total Protein 4.8 gm/dL (5.7-8.2); Vancomycin,Random 19.4 mcg/mL; eGFR 23 See Note
--- NOTE | 2025-01-21 05:40 | ESCONSULT_ITS ---
Tele Neuro Consultation Consultation Date 01/21/25 Most Recent Vital Signs Last Vital Signs Temp 97.0 F 01/21/25 04:00 Pulse 62 01/21/25 05:30 Resp 12 01/21/25 05:30 BP 92/51 L 01/21/25 05:30 Pulse Ox 100 01/21/25 05:30 O2 Del Method Room Air 01/21/25 04:00 Laboratory-Coagulation Panel PT 17.1 Seconds (9.0-12.2) H 01/21/25 04:38 INR 1.7 (0.9-1.3) H 01/21/25 04:38 APTT 48.3 Seconds (22.0-36.0) H 01/21/25 04:38 Consultation Narrative [facility] TeleNeurology Consult Services Patient Name:???Agustin Schrader Date of :???1960 Identification Number:??? Date of Service:???01/21/2025 04:43:33 Diagnosis:?G93.49 - Encephalopathy Multifactorial ?I62.01 - Non-traumatic acute SDH Impression: Pt is a 64 YOM with PMH of CAD, WHEELCHAIR BOUND, CKD IIIb, WEIR'S ESOPHAGUS, UPPER GI BLEED, CHRONIC OSTEOMYELITIS of T11-12, A.FIB on ELIQUIS, prior CVA who was admitted yesterday for AMS and now further altered and CT scan completed noting abnormalities. NIHSS: 22. He is not a thrombolytic candidate. Reviewed CT scans b/l subdural hygromas seem stable compare to scans yesterday without significant change (there is mostly isodense material but some small patches of hyperdensity, but similar to scans yesterday, no compression of sulcie/gyri in context of skull artifact). Advised to load with Keppra 1.5 g now. Advised following reversal protocols for ELIQUIS if PT/PTT/INR still elevated. Get neurosurgery eval. Monitor neuro checks/VS q4h with telemetry. Recommend fall precautions and seizure precautions. Strict goal SBP b/w 100-140 afterwards. Hold?antiplatelet?therapy/NSAIDS/Anticoagulation Warfarin/Coumadin/DOAC reversal per hospital protocol Repeat CT head in first 24 hrs or sooner if needed. Get spot EEG. PT/OT/ST eval. Get NEUROSRUGERY eval. Give Lorazepam 2 mg IV PRN for seizures > 3 min or > 3 episodes in one hour. Don't give more than 6-8 mg total in 24 hour period. Please avoid aminophylline, theophylline, isoniazid, lindane, metronidazole, nalidixic acid, meropenem/imipenem, cefepime, TCAs, bupropion, cyclosporine, chlorambucil, tramadol, clozapine, or other drugs which can lower seizure threshold. Recommendation: Diagnostic Studies: ?Repeat CT head in first 24 hrs Laboratory Studies:? INR/PT ? aPTT? CBC Medications:? Hold?antiplatelet?therapy/NSAIDS/Anticoagulation ? Warfarin/Coumadin/DOAC reversal per hospital protocol ? Load with Keppra 1gm now. ? Keppra 500mg bid. Nursing Recommendations: ? Telemetry, IV Fluids?Avoid dextrose containing fluids, Maintain euglycemia ? Head of bed 30 degrees ? Neuro checks q1-2?hrs?during ICU stay ? Once stable neuro checks q4?hrs ? keep BP less than 140/90's with goal of 130/80s Consultations: ? Need Neurosurgery consultation?STAT ? Recommend Speech therapy if failed dysphagia screen ? Physical therapy/Occupational therapy DVT Prophylaxis: ? SCDs Disposition: ? Neurology will Follow Metrics: Last Known Well: Unknown Initial Response Time: 01/21/2025 04:45:29Symptoms: AMS. Initial patient interaction: 01/21/2025 04:54:29 NIHSS Assessment Completed: 01/21/2025 05:24:45Patient is not a candidate for Thrombolytic. Thrombolytic Medical Decision: 01/21/2025 05:26:00Patient was not deemed candidate for Thrombolytic because of following reasons: LKW outside 4.[address] Head: I personally reviewed all the CT images that were available to me and it showed: b/l subdural hygromas seem stable compare to scans yesterday without significant change (there is mostly isodense material but some small patches of hyperdensity, but similar to scans yesterday, no compression of sulcie/gyri in context of skull artifact). Rads Read: 1. Acute isodense subdural hemorrhage along the left parietal convexity and right parietooccipital convexity with mass effect as described above. 2. Thin acute subdural hemorrhage along the posterior falx cerebri and bilateral tentorium (1-2 mm thickness). 3. No evidence of midline shift. 4. Other findings as described above. Primary Provider Notified of Diagnostic Impression and Management Plan on: 01/21/2025 05:41:46 Spoke With: INPT ICU Resident Able to Reach 01/21/2025 05:41:46 History of Present Illness: Inpatient stroke alert was called for symptoms of AMS. Pt is a 64 YOM with PMH of CAD, WHEELCHAIR BOUND, CKD IIIb, WEIR'S ESOPHAGUS, UPPER GI BLEED, CHRONIC OSTEOMYELITIS of T11-12, A.FIB on ELIQUIS, prior CVA who was admitted yesterday for AMS and now further altered and CT scan completed noting abnormalities. His last know well not clear. His last dose of ELIQUIS maybe on night of 01/19/25. He was anemic yesterday and got 1 unit of PRBC, but no reversal of AC. -H&H: 7.4/23.2, PT/PTT/INR: 17.1/48.3/1.7, Na: 151, BUN/CR: 59/3.0, CRP: 8.2 -CTA 01/20/25: 40% stenosis left carotid bifurcation. Right internal carotid artery is diffusely attenuated although patent. Significant stenosis P1 segment left posterior cerebral artery. Significant calcification juxtasellar portions of both internal carotid arteries. Significant irregularity M1 segment left middle cerebral artery. No definite large vessel occlusions involving middle cerebral posterior cerebral or anterior cerebral arteries. -CT HEAD 01/20/25: Axial images 19, 20, 21 demonstrate small hyperdensities left cerebral sulci which may be artifactual, small areas of subarachnoid hemorrhage not excluded, the appearance should be clinically correlated -MRI BRAIN W/O 01/20/25: Chronic subdural hygromas. No acute infarct. No definite acute hemorrhage. Past Medical History: ?Atrial Fibrillation ?Coronary Artery Disease ?Stroke unable to obtain due to:?? Patient Is Confused Medications: Anticoagulant use:??Unknown No Antiplatelet use Reviewed EMR for current medications Allergies:? Reviewed Allergies Unable To Obtain Due To:?Patient Is Confused Social History: Unable To Obtain Due To Patient Status :?Patient Is Confused Family History: Family History Cannot Be Obtained Because:Patient Is Confused ROS :?ROS Cannot Be Obtained Because:? Patient Is Confused Past Surgical History: Past Surgical History Cannot Be Obtained Because: Patient Is Confused NIHSS may not be reliable due to: AMS Examination: BP(101/55),?Pulse(70),?Blood Glucose(125) 1A: Level of Consciousness - Movements to Pain?+ 2 1B: Ask Month and Age - Could Not Answer Either Question Correctly?+ 2 1C: Blink Eyes & Squeeze Hands - Performs 0 Tasks?+ 2 2: Test Horizontal Extraocular Movements - Normal?+ 0 3: Test Visual Hardy - No Visual Loss?+ 0 4: Test Facial Palsy (Use Grimace if Obtunded) - Normal symmetry?+ 0 5A: Test Left Arm Motor Drift - Drift, but doesn't hit bed?+ 1 5B: Test Right Arm Motor Drift - Drift, but doesn't hit bed?+ 1 6A: Test Left Leg Motor Drift - No Movement?+ 4 6B: Test Right Leg Motor Drift - No Movement?+ 4 7: Test Limb Ataxia (FNF/Heel-[place]) - Does Not Understand?+ 0 8: Test Sensation - Mild-Moderate Loss: Can Sense Being Touched?+ 1 9: Test Language/Aphasia - Mute/Global Aphasia: No Usable Speech/Auditory Comprehension?+ 3 10: Test Dysarthria - Mute/Anarthric?+ 2 11: Test Extinction/Inattention - No abnormality?+ 0 NIHSS Score:?22 NIHSS Text :?Pupils: 3 mm and reactive b/l. He has twitchy movements b/l in UE like asterixis. No movement in LE. He grimace face to painful stimuli in LE. Pre-Morbid Modified Jackson Scale: 7 Points = Unable to assess This consult was conducted in real time using interactive audio and video technology. Patient was informed of the technology being used for this visit and agreed to proceed. Patient located in hospital and provider located at home/office setting. Due to the immediate potential for life-threatening deterioration due to underlying acute neurologic illness, I spent 35 minutes providing critical care. This time includes time for face to face visit via telemedicine, review of medical records, imaging studies and discussion of findings with providers, the patient and/or family. Dr Bebe Reinoso [facility] For Inpatient follow-up with [facility] physician please call [facility] at . As we are not an outpatient service for any post hospital discharge needs please contact the hospital for assistance. If you have any questions for the [facility] physicians or need to reconsult for clinical or diagnostic changes please contact us via [facility] at . Non-radiologist review of imaging performed to assist with emergent clinical decision-making. Remote physician workstations do not possess the same resolution, calibration, or diagnostic capabilities as hospital-based radiology reading stations, and formal radiologist read is necessary. Signature :Maxi Reinoso
--- NOTE | 2025-01-21 06:15 | PC.NURSE ---
[facility] called @7500 and spoke to transfer nurse. images pushed. H&P, progress notes, labs, image results faxed.
[2025-01-21] MEDS: Sodium Bicarb Inj 8.4% SYR 50 ML SYRINGE IV (06:29)
--- NOTE | 2025-01-21 06:35 | PC.NURSE ---
Recieved call from [facility] Transfer nurse Felisa, declining due to the bleed being small and to medically manage. Wasiq made aware.
--- NOTE | 2025-01-21 07:44 | PC.CC ---
Addendum entered by Juan Moore RN 01/21/25 10:36: 1033: Called ICU to f/u on transfer status, MARTINA Marc stated per Dr. Brown, cancel transfer. 1032: received call from Monica jordan/ [facility], she informed me that Dr. Titus (Neurosx) spoke to Dr. Allen and that patient will not be transferred out. She is closing the case. Addendum entered by Juan Moore RN 01/21/25 09:26: 0925: Monica called requesting the report for the second Head CT as the neurosurgery is unable to read the image. Report sent. Original Note: 0733: spoke to Lashawn to initiate transfer request. she transferred me to Monica MACK. Monica stated she will call back with a determination. 0731: Clinicals and images sent to [facility]. 0722: spoke to ICU HAROLDO Douglas to f/u on the status of the transfer, she stated per MD, continue to transfer. 0710: received hand off report from Dagoberto tineo regarding transfer for neurosurgery for an acute isodense subdural hemorrhage. Read nurses notes which stated [facility] declined the patient.
[2025-01-21] MEDS: PIPER/TAZO 3.375 GM PREMIX 3.375 GM/50 ML BAG IV ×2 (08:19→20:21)
[2025-01-21] MEDS: levETIRAcetam INJ 100 MG/ML VIAL 5ML 500 MG IVP ×2 (08:20→20:20)
--- NOTE | 2025-01-21 10:00 | PC.SS ---
-Patient is altered. He is a short term resident of [facility]. Patient currently in ICU. SS spoke to patient's spouse, Sheila, at bedside. states patient was recently sent to [facility] for rehab and recently was found in [facility]. Patient was wheelchair bound prior to being discharged on last admission. Patient was admitted for a stroke. SS spoke to transfer nurse as notes reveal transfer request and actively looking for placement. is alt medical decision maker: Sheila Watkins, jocelyne, . Transportation: [facility] Alt medical decision maker: , Sheila Watkins,
--- NOTE | 2025-01-21 10:25 | ESPR_ITS ---
<Statement entered by Shayna Allen MD - 01/21/25 11:17> TOTAL CC TIME:45 MIN I saw and evaluated the patient. I reviewed the resident?s note and agree with findings and plan as documented in the resident?s note. Upon my evaluation, this patient had a high probability of imminent or life- threatening deterioration due to septic shock, which required my direct attention, intervention, and personal management. This time is exclusive of time spent on procedures, which are documented separately if performed. Repeat CT scan today with was reviewed, teleneurology also reviewed and reported no significant change from prior CT imaging. Levophed remains on but at lower doses to support septic shock. We will increase blood pressure goal to therapeutic range for tiny subdural hemorrhage He elected to hold PCC given that the patient's overall neurological status is clearly improved, they are more awake, no progressive neurological deficits from a complicated baseline chronic bedbound status. Significant risks are associated with PCCU specially clotting risks in the setting of A-fib and given the patient's improvements we do not feel comfortable providing the patient PCC at this time Cultures are not returned yet continue empiric antibiotics updated at bedside Documentation for date of: 01/21/25 Subjective Subjective Interval history: Patient is a 64-year-old male with a history of afib on Eliquis, CAD s/p multiple stents, CVA, wheelchair-bound, CKD stage IIIb, Castorena's esophagus, esophageal ulcers with upper GI bleed, decubitus ulcers and chronic osteomyelitis of T11-T12 spine who presented to [facility] ED on 01/20/2025 from [facility] for altered mental status. Patient had a baseline GCS of 15 and is normally interactive with limited vocabulary, however nursing staff at the facility found him obtunded with GCS 7 around 4:00 am that morning. Stroke alert was called in the ED and CT head showed possible small hyperdensities in the left cerebral sulci and could not exclude subarachnoid hemorrhage, subsequent MRI showed chronic subdural hygromas without evidence of acute bleed. Teleneuro evaluated the patient and recommended further stroke and metabolic encephalopathy workup. Patient also presented with hypotension requiring vasopressor support despite 3L fluids, and hypothermia requiring warming measures. UA showed evidence of possible infection with positive leukocyte esterase and 42 WBCs however there were not bacteria. Goals of care discussion was held by ICU team with primary decision maker and code status was changed to DNR, then following that decided to change to Limited Code with intubation OK but no chest compressions. Patient was admitted to ICU for management of shock requiring vasopressors. 01/21/2025: Overnight, repeat head CT showed subtle isointense (confirmed not to be hyperintense) acute subdural hemorrhage peripheral to the left parietal convexity, follow-up minimal subdural hemorrhage involving the cerebral falx and cerebellar tentorium. TeleNeuro consultation was initiated at that time, and Neurologist read the CT as similar to previous CT/MRI without new acute bleed. Neurologist did recommend Neurosurgery consultation however, so transfer process was initiated and attempted. Two facilities reviewed the case and reported that bleed was too small for interventions, therefore transfer process was cancelled. Patient was given 2 amps of bicarb last night for metabolic acidosis. Patient received 1 PRBC for Hgb 6.5, there is no notable GI bleeding, however patient did receive fluid resuscitation. The patient is clinically improving this morning, able to arouse to voice, make eye contact, say his name, and say a few words in response to questioning such as just tired . He is able to follow commands. He has 3/5 strength in the upper extremities, not currently moving the lower extremities at this time. Reversal of Eliquis anticoagulation not opted for at this time as there is no new bleed and patient is clinically improving, with history of afib the risk of clot formation is high. He continues to have good urine output at this time at 20-25 ml/hr. Exam Vital Signs Temp Pulse Resp BP Pulse Ox O2 Del Method O2 Flow Rate 96.4 F L 77 13 103/72 100 Room Air 0 01/21/25 07:16 01/21/25 09:30 01/21/25 09:30 01/21/25 09:30 01/21/25 09:30 01/21/25 09:30 01/21/25 09:30 Narrative Exam Physical Exam: General: Somnolent, no acute distress. Awakens to voice. Skin: Dry, flaky, cool, intact. Diffuse and scattered scabs noted throughout the body, most prominent and numerous on bilateral upper extremities and chest. Head: Normocephalic, atraumatic. Eye: Normal conjunctiva, PERRL. Throat: Oral mucosa moist. Cardiovascular: Regular rate and rhythm, no murmur, +S1/S2. Respiratory: Lungs are clear to auscultation, respirations unlabored, no crackles, no wheezing. Gastrointestinal: Soft, nontender, non-distended. No guarding or rebound tenderness. Extremities: No edema, no cyanosis, no clubbing. Hands and feet bilaterally cool to touch. Capillary refill 3 seconds in all extremities. Bilateral lower extremity noted to have significantly dry and flaky skin. Dried blood in between toes bilaterally. Right heel open estimated 3.5cm x 1.5cm sore with red/black bed, minimal to no depression. Back: Multiple scabs with longitudinal skin breaks across upper back. Mid back ulcer estimated 6cm x 5cm x 0.5cm with light red surrounding and exposure of subcutaneous tissue, draining small amount of blood without pus expression. Bilateral superficial pink/red ulcerations on upper buttocks. Neuro: No focal deficits observed. Moving all extremities. No overt cerebellar signs/incoordination. Objective Labs 01/21/25 16:17 01/21/25 04:38 Labs: Laboratory Results - last 24 hr 01/20/25 01/20/25 01/20/25 06:51 09:20 11:27 WBC RBC Hgb Hct MCV MCH MCHC RDW Std Deviation Plt Count Neut % (Auto) Lymph % (Auto) [place] % (Auto) Eos % (Auto) Baso % (Auto) Neut # (Auto) Lymph # (Auto) [place] # (Auto) Eos # (Auto) Baso # (Auto) Immature Gran # (Auto) Absolute Nucleated RBC Immature Gran % Nucleated RBC % PT INR APTT VBG pH VBG pCO2 VBG pO2 VBG O2 Sat (Gretel) VBG Base Excess Sodium Potassium Chloride Carbon Dioxide Anion Gap BUN Creatinine Estim Creat Clear Calc eGFR BUN/Creatinine Ratio Glucose Calculated Osmolality Lactic Acid 1.3 Calcium Corrected Calcium Phosphorus Magnesium Total Bilirubin AST ALT Alkaline Phosphatase C-Reactive Prot, Quant Total Protein Albumin Globulin Albumin/Globulin Ratio TSH 9.68 H D Free T4 0.84 L Random Vancomycin Urine Opiates Screen Negative Urine Fentanyl Screen Negative Ur Barbiturates Screen Negative U Amphetamin/Meth Scrn Negative U Benzodiazepines Scrn Negative U Cocaine Metab Screen Negative U Marijuana (THC) Screen Negative Blood Type Antibody Screen Crossmatch Blood Bank Wristband ID 01/20/25 01/20/25 01/20/25 14:54 16:22 18:46 WBC RBC Hgb 6.8 L* 6.5 L* Hct 21.7 L* 20.5 L* MCV MCH MCHC RDW Std Deviation Plt Count Neut % (Auto) Lymph % (Auto) [place] % (Auto) Eos % (Auto) Baso % (Auto) Neut # (Auto) Lymph # (Auto) [place] # (Auto) Eos # (Auto) Baso # (Auto) Immature Gran # (Auto) Absolute Nucleated RBC Immature Gran % Nucleated RBC % PT 19.3 H INR 1.9 H APTT 52.0 H VBG pH 7.35 VBG pCO2 27 L VBG pO2 82 H VBG O2 Sat (Gretel) 92 L VBG Base Excess -10 L Sodium 148 H 148 H Potassium 4.1 D 4.2 Chloride 120 H 120 H Carbon Dioxide 13.1 L* 13.0 L* Anion Gap 15 15 BUN 61 H 58 H Creatinine 2.9 H 2.9 H Estim Creat Clear Calc 31.6 L 31.6 L eGFR 24 L 24 L BUN/Creatinine Ratio 21 H 20 Glucose 116 H 141 H Calculated Osmolality 312 H 312 H Lactic Acid 1.1 Calcium 7.4 L 7.5 L Corrected Calcium 8.5 8.6 Phosphorus 5.3 H 5.3 H Magnesium Total Bilirubin AST ALT Alkaline Phosphatase C-Reactive Prot, Quant 8.2 H Total Protein Albumin 2.6 L 2.6 L Globulin Albumin/Globulin Ratio TSH Free T4 Random Vancomycin Urine Opiates Screen Urine Fentanyl Screen Ur Barbiturates Screen U Amphetamin/Meth Scrn U Benzodiazepines Scrn U Cocaine Metab Screen U Marijuana (THC) Screen Blood Type O Positive Antibody Screen NEGATIVE Crossmatch See Detail Blood Bank Wristband ID Yes 01/20/25 01/20/25 01/21/25 20:38 22:16 00:30 WBC RBC Hgb 7.7 L Hct 24.4 L MCV MCH MCHC RDW Std Deviation Plt Count Neut % (Auto) Lymph % (Auto) [place] % (Auto) Eos % (Auto) Baso % (Auto) Neut # (Auto) Lymph # (Auto) [place] # (Auto) Eos # (Auto) Baso # (Auto) Immature Gran # (Auto) Absolute Nucleated RBC Immature Gran % Nucleated RBC % PT INR APTT VBG pH VBG pCO2 VBG pO2 VBG O2 Sat (Gretel) VBG Base Excess Sodium 149 H 151 H Potassium 4.4 4.4 Chloride 118 H 119 H Carbon Dioxide 16.7 L 18.2 L Anion Gap 14 14 BUN 59 H 59 H Creatinine 2.9 H 3.0 H Estim Creat Clear Calc 27.3 L 26.4 L eGFR 24 L 23 L BUN/Creatinine Ratio 20 20 Glucose 127 H 125 H Calculated Osmolality 314 H 317 H Lactic Acid Calcium 7.8 L 7.9 L Corrected Calcium 8.9 8.9 Phosphorus 5.6 H 6.1 H Magnesium Total Bilirubin AST ALT Alkaline Phosphatase C-Reactive Prot, Quant Total Protein Albumin 2.6 L 2.7 L Globulin Albumin/Globulin Ratio TSH Free T4 Random Vancomycin Urine Opiates Screen Urine Fentanyl Screen Ur Barbiturates Screen U Amphetamin/Meth Scrn U Benzodiazepines Scrn U Cocaine Metab Screen U Marijuana (THC) Screen Blood Type Antibody Screen Crossmatch Blood Bank Wristband ID 01/21/25 04:38 WBC 5.8 RBC 2.59 L Hgb 7.4 L Hct 23.2 L MCV 90 MCH 28.6 MCHC 31.9 RDW Std Deviation 70.5 H Plt Count 204 Neut % (Auto) 89 H Lymph % (Auto) 8 L [place] % (Auto) 2 Eos % (Auto) 1 Baso % (Auto) 0 Neut # (Auto) 5.1 Lymph # (Auto) 0.4 L [place] # (Auto) 0.1 Eos # (Auto) 0.0 Baso # (Auto) 0.0 Immature Gran # (Auto) 0.07 H Absolute Nucleated RBC 0.03 H Immature Gran % 1 H Nucleated RBC % 1 H PT 17.1 H INR 1.7 H APTT 48.3 H VBG pH VBG pCO2 VBG pO2 VBG O2 Sat (Gretel) VBG Base Excess Sodium 151 H Potassium 4.2 Chloride 120 H Carbon Dioxide 17.6 L Anion Gap 13 BUN 59 H Creatinine 3.0 H Estim Creat Clear Calc 26.4 L eGFR 23 L BUN/Creatinine Ratio 20 Glucose 116 H Calculated Osmolality 317 H Lactic Acid Calcium 7.6 L Corrected Calcium 8.6 Phosphorus 5.8 H Magnesium 2.0 Total Bilirubin 0.3 AST 42 H ALT 29 Alkaline Phosphatase 200 H D C-Reactive Prot, Quant Total Protein 4.8 L Albumin 2.7 L Globulin 2.1 L Albumin/Globulin Ratio 1.3 TSH Free T4 Random Vancomycin 19.4 Urine Opiates Screen Urine Fentanyl Screen Ur Barbiturates Screen U Amphetamin/Meth Scrn U Benzodiazepines Scrn U Cocaine Metab Screen U Marijuana (THC) Screen Blood Type Antibody Screen Crossmatch Blood Bank Wristband ID ABG Interpretation ABG results: 01/20/25 14:54 VBG pH 7.35 VBG pCO2 27 L VBG pO2 82 H VBG Base Excess -10 L Quality Measures Quality Measures VTE prophylaxis Assessment & Plan Assessment Current Active Medications: Generic Name Dose Route Start Last Admin Trade Name Freq PRN Reason Stop Dose Admin Atorvastatin Calcium 40 mg 01/20/25 21:00 01/20/25 20:01 Atorvastatin Calcium 20 Mg Tablet PO 02/19/25 20:59 Not Given HS HANNAH Piperacillin/Tazobactam/Dextrose 3.375 gm in 50 mls @ 12.5 mls/hr 01/20/25 21:00 01/21/25 08:19 Zosyn IV 01/27/25 20:59 50 mls/hr Q12HR HANNAH Administration Protocol Norepinephrine/Dextrose 8 mg in 250 mls @ 9.568 mls/hr 01/21/25 06:09 Levophed In D5w 8mg/250ml IV 02/19/25 08:17 .Q24H PRN PER PROTOCOL Protocol 0.05 MCG/KG/MIN Levetiracetam 500 mg 01/21/25 09:00 01/21/25 08:20 Levetiracetam Inj 100 Mg/Ml Vial 5ml IVP 02/20/25 08:59 500 mg Q12HR HANNAH Administration Lorazepam 2 mg 01/21/25 06:06 Lorazepam 2 Mg/Ml Vial IVP 01/26/25 06:05 Q3MIN PRN SEIZURES Pantoprazole Sodium 40 mg 01/20/25 21:00 01/21/25 08:20 Pantoprazole Inj 40 Mg Vial IVP 02/19/25 20:59 40 mg BID HANNAH Administration Pharmacy Consult 1 each 01/20/25 14:15 Vancomycin Pharmacy To Dose 1 Each Each IV 02/19/25 14:14 QDAY PRN CONSULT Pharmacy Consult 1 each 01/20/25 14:18 Pharmacy Renal Dose Adjustment 1 Ea XX 02/19/25 14:17 PRN PRN CONSULT Plan 64-year-old male with a history of A-fib (on Eliquis), CAD status post multiple stents, CVA, wheelchair-bound, CKD stage IIIb, Castorena's esophagus, esophageal ulcers with upper GI bleed, and chronic osteomyelitis of T11-T12 spine who presented to [facility] ED on 01/20 from [facility] for altered mental status. Patient was admitted to ICU for management of shock requiring vasopressors. NEURO #Acute encephalopathy DDx: Metabolic derangement, CVA Dx: ? Patient's last known well was 0400 on 01/20, with baseline of patient being able to follow commands and respond with very limited vocabulary, however after patient's last known well, patient became minimally responsive and increasingly somnolent ? Patient noted to have recent fall about a day before admission with unclear head trauma and loss of consciousness per patient's ? CTA head/neck 01/20 significant for 40% stenosis of the left carotid bifurcation, stenosis of P1 segment of left posterior cerebral artery, calcification of juxtasellar portions of internal carotid arteries, irregularity of M1 segment of left middle cerebral artery, and no definite large vessel occlusions ? CT head #1 01/20 significant for small hypodensities in left cerebral sulci, could not exclude small areas of subarachnoid hemorrhage ? MRI brain 01/20 shows no acute infarct and no definite acute hemorrhage, but does note chronic subdural fluid accumulation with the largest being in the left cerebral hemisphere ? Follow up CT head #2 01/21 at 1:00 am showed subtle isointense acute subdural hemorrhage peripheral to the left parietal convexity, minimal subdural hemorrhage involving the cerebral falx and cerebellar tentorium - Teleneuro determined this was unchanged from the prior imaging above ? Two facilities neurosurgery teams determined no need for acute interventions, bleed too small Rx: ? Continue neurochecks every 2 hours ? Repeat CT head (#3) at 5:00 am on 01/22 to rule out evolving cerebral hemorrhage ? Manage underlying shock Follow-up: ? If repeat CT head shows progression of cerebral hemorrhage, will reach out for neurosurgical evaluation CARDIO #Shock #Hypothermia #Bradycardia DDx: Septic shock, distributive shock Dx: ? Patient presented with initial blood pressure of 98/56 and remained hypotensive even with 3 L of NS in ED ? Patient presented with temperature of 90.5 ?F ? Patient initially tachycardic at 146 heart rate in the ED, however on admission heart rate was noted to be bradycardic in the 40s to 50s ? Bedside ultrasound performed in ED by ICU team after fluid resuscitation in ED showed minimally compressible IVC and hepatic vein, suggestive of adequate fluid resuscitation, with a bradycardic heart that appeared to have adequate ventricular motion ? Estimated cardiac output on 01/20 noted to be 21.5 and estimated cardiac index 9.6 using Jose Roberto formula, low suspicion for cardiogenic shock ? Hydrocortisone 100 mg x 1 given on 01/20 Rx: ? Continue vern hugger warmer ? Continue norepinephrine to maintain MAP above 65 and systolic 100-140 ? Continue to empirically treat with antibiotics Follow-up: ? If patient remains hypotensive with MAP below 65, then will reinvestigate IVC, hepatic vein, and heart with bedside ultrasound to determine fluid responsiveness status, and fluid bolus if fluid responsive ? If patient is not fluid responsive and remains hypotensive with MAP below 65, will consider starting additional vasopressors such as vasopressin #Atrial fibrillation Dx: ? Patient does have longstanding history of atrial fibrillation, data officer is Dr. Yadav in [place] ? EKG on admission notes atrial fibrillation ? Patient has been prescribed Eliquis 5 mg twice daily at home Rx: ? Will hold home Eliquis given hypotension with decreased hemoglobin and dried blood around mouth on presentation, cannot rule out upper GI bleed at this time PULM #No active problems GI #History of Castorena's esophagus #History of esophageal ulcers with upper GI bleed Dx: ? During recent hospitalization on 12/31 for decreased oral intake and at least one episode of hematemesis, patient was transfused with 1 unit of PRBC on 01/01 ? EGD on 01/02 showed esophageal ulcers with subcutaneous mucosal changes consistent with Castorena's esophagus, gastritis, and erythematous duodenopathy Rx: ? Continue to monitor for possible recurrence of upper GI bleed ? Protonix 40 mg twice daily Follow-up: ? If repeat H&H continues to show worsening hemoglobin suggestive of acute anemia, will consult GI as upper GI bleed cannot be ruled out at this time NEPHRO #Normal anion gap metabolic acidosis #Uremia Dx: ? Bicarb on 01/20 16.7 => 13.1 ? BUN 64 on admission ? Anion gap 15 on admission ? VBG on 01/20 pH 7.35 and pCO2 27 ? Dennis formula on 01/20 estimates expected pCO2 compensation at 26-30, suggesting appropriate respiratory compensation and a pure metabolic acidosis, likely is secondary to kidney injury ? 2 amps of sodium bicarb administered on 01/20 Rx: ? Will continue to monitor with daily CMP ? Will monitor with renal function panel every 4 hours until resolution of metabolic acidosis Follow-up: ? If repeat renal function panel continues to show metabolic acidosis, will consider additional amps of sodium bicarb #Acute kidney injury DDx: ATN, prerenal azotemia Dx: ? Creatinine in ED initially 3.3, elevated from baseline of 2.0 ? Patient received 3 L of NS in the ED for fluid resuscitation ? Currently urine output around 20 ml/hr Rx: ? Continue to monitor urine output as a surrogate for renal perfusion URO #No active problems HEME #Anemia, normocytic DDx: Upper GI bleed, anemia of chronic disease Dx: ? Patient has had a history of upper GI bleed secondary to bleeding ulcers, and has required transfusion of 1 PRBC during previous hospitalization about 1 month ago ? Hemoglobin on initial presentation 7.5, decreased to 6.8, but this is likely dilutional from the 3 L of NS that the patient received while in the ED Rx: ? Type and screen ordered ? Continue holding patient's home Eliquis ? Will repeat H&H every 6 hours ? Pantoprazole 40 mg twice daily ? Transfused 1 PRBC at 7 pm 01/20/2025 Follow-up: ? Will order and transfuse PRBC if patient's hemoglobin continues to drop on repeat H&Hs ENDO #Elevated TSH #Decreased free T4 DDx: Euthyroid sick syndrome, hypothyroidism Dx: ?TSH on admission 9.68 and T4 on admission 0.84 Rx: ? Resolved underlying metabolic derangement ? Patient to follow-up outpatient ? Repeat TSH and Free T4 in a few days after stabilization ID #History of Enterococcus faecalis in urine #History of chronic osteomyelitis T12-L2 Dx: ? Per chart review, patient does have a history of Enterococcus faecalis in urine and chronic osteomyelitis with previous wound cultures growing pansensitive MSSA ? MRI lumbar spine 12/15/2024 notes osteomyelitis in T12-L2, patient had previously pulled out PICC line during past hospitalizations, so was recently discharged with oral antibiotics ? WBC within normal range on admission ? Procalcitonin within normal limits at 0.29 on admission ? CRP elevated at 8.2 on 01/20 ? Blood cultures collected 01/20, pending ? Urine culture collected 01/20, pending Rx: ? Vancomycin IV daily, pharmacy to dose (01/20?) ? Piperacillin/tazobactam 3.375 g every 12 hours (01/20?) ? Aggressive empiric antibiotic regimen given previous resistance of Enterococcus faecalis in urine and severity of patient's shock MSK #No active problems SKIN #Multiple scattered scabs DDx: Pruritus, flea bites Dx: ?Multiple diffuse and scattered scabs noted throughout the body, most numerous and prominent on bilateral upper extremities and chest Rx: ? Contact precautions Follow-up: ? 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 Lower back ulcer (on admission estimate size 5 cm x 3 cm x 0.5 cm) with exposure to subcutaneous tissue, slight bloody discharge without expression of pus noted on admission, currently does not appear infected ? Patient does have a history of a chronic stage IV ulcer in his mid back, possible source of chronic osteomyelitis during previous admissions Rx: ? Wound care referral ? Keep patient on his sides Follow-up: ? Monitor size and characteristics of wound daily, if worsening consider wound culture and referral to general surgery for debridement Feeding/fluids: NPO; Levophed Analgesia: N/A Sedation: N/A Thromboprophylaxis: SCDs Head up position: 30 degrees Ulcer prophylaxis: Protonix 40 mg BID Glycemic control: AM blood glucose & bedside glucose checks Q6h Spontaneous breathing trial: N/A Bowel care: N/A Indwelling catheters: RIJ Central line Deescalation of antibiotics: Currently on Zosyn & Vancomycin CODE STATUS: Limited code intubation OK no chest compressions Reason for ICU care: Shock requiring vasopressors Patient plan of care was discussed with the attending diesel power shovel operator, Dr. Allen. Theresa Brown, PGY-3
[2025-01-21] MEDS: Norepinephrine/D5W 8mg/250ml 8 MG/250 ML BAG 9.568 MG IV (10:32)
[2025-01-21 11:41] LABS: Hematocrit 21.6 % (41.0-53.0)
[2025-01-21 11:43] LABS: Hemoglobin 7.1 g/dL (13.5-16.0)
[2025-01-21 16:47] LABS: Hematocrit 23.1 % (41.0-53.0)
[2025-01-21 16:56] LABS: Hemoglobin 7.4 g/dL (13.5-16.0)
[2025-01-21 17:38] LABS: Anion Gap 13 (7-16); BUN/Creatinine Ratio 14 Ratio (12-20); Blood Urea Nitrogen 43 mg/dL (9-23); Calcium 8.2 mg/dL (8.3-10.6); Carbon Dioxide 18.7 mMol/L (20.0-31.0); Chloride 121 mMol/L (98-107); Creatinine (Component) 3.1 mg/dL (0.6-1.3); Estimated Creatinine Clearance 25.5 mL/min (>60); Glucose 107 mg/dL (74-106); Osmolality,Calculated 314 (275-295); Potassium 3.8 mMol/L (3.4-5.1); Sodium 153 mMol/L (136-145); eGFR 22 See Note
[2025-01-21] MEDS: DEXTROSE 5%-WATER 1,000 ML 50 ML IV (19:00)
[2025-01-21] MEDS: Norepinephrine/D5W 8mg/250ml 8 MG/250 ML BAG 28.704 MG IV (20:44)
[2025-01-22] VITALS (132 sets, daily range): BP systolic 79–137; BP diastolic 44–88; PULSE 42–172; RESP 5–99; TEMP 35.4–36.7; O2SAT 83–100; BMI 25.6
--- NOTE | 2025-01-22 00:28 | RESP.EEG ---
EEG to be held until the AM per Dr. Corado.
--- NOTE | 2025-01-22 05:00 | XR_ITS ---
Examination: CT brain head without contrast. 2-D sagittal coronal reconstructions Date and time of exam: January 22, 2025, 0337 hours INDICATIONS: Altered mental status this week, CT brain scan January 21, 2025 subdural hemorrhage peripheral to the left cerebral hemisphere and minimal subdural hemorrhage cerebral falx and cerebellar tentorium CTDI: vol (mGy): 53.4 DLP: (mGycm): 1116 Technique: Multiple CT axial sections of the brain have been obtained, 5 mm slice thickness. Contrast has not been administered. 2-D sagittal, coronal reconstructions have been obtained Low dose protocols were performed. One or more of the following dose reduction techniques were used; automated exposure control, adjustment of the mA and/or KV according to patient size, use of iterative reconstruction technique. Findings: No change in subdural hemorrhage peripheral to the left cerebral hemisphere, measuring up to 10 mm in thickness There also is mild subdural hemorrhage peripheral to the right cerebral hemisphere at the convexity posterior to the parietal lobe measuring 8 mm The ventricles are nonenlarged and no midline shift is present There remains trace subdural hemorrhage along the cerebral falx and cerebellar tentorium IMPRESSION: Mild subdural hemorrhage bilaterally peripheral to the cerebral hemispheres again noted as well as trace subdural hemorrhage cerebral falx and cerebellar tentorium No midline shift
[2025-01-22 05:38] LABS: Basophils # (Auto) 0.0 Thou/mm3 (0.0-0.2); Basophils % (Auto) 0 % (0-2.5); Eosinophils # (Auto) 0.6 Thou/mm3 (0.0-0.5); Eosinophils % (Auto) 12 % (0-10); Hematocrit 21.1 % (41.0-53.0); Immature Granulocytes Auto 0.05 Thou/mm3 (0.00-0.00); Lymphocytes # (Auto) 0.6 Thou/mm3 (1.0-4.8); Lymphocytes % (Auto) 14 % (10-50); Mean Corpuscular HGB Conc 32.7 g/dl (31.0-37.0); Mean Corpuscular Hemoglobin 29.2 pg (25.0-35.0); Mean Corpuscular Volume 89 fL (80-100); Monocytes # (Auto) 0.3 Thou/mm3 (0.0-0.8); Monocytes % (Auto) 7 % (0-12); Neutrophils # (Auto) 3.1 Thou/mm3 (1.8-7.7); Neutrophils % (Auto) 66 % (37-80); Nucleated Red Blood Cell # 0.05 Thou/mm3 (0.00-0.00); Nucleated Red Blood Cell % 1 /100 WBC (0); Platelet Count 169 Thou/mm3 (140-440); RDW Standard Deviation 73.0 fL (35.1-43.9); Red Blood Count 2.36 Miln/mm3 (4.50-5.90); White Blood Count 4.6 Thou/mm3 (3.8-10.6)
[2025-01-22 05:48] LABS: INR 1.6 (0.9-1.3); Partial Thromboplastin Time 40.1 Seconds (22.0-36.0); Prothrombin Time 16.7 Seconds (9.0-12.2)
[2025-01-22 05:58] LABS: Hemoglobin 6.9 g/dL (13.5-16.0)
[2025-01-22 06:03] LABS: Alanine Aminotransferase 34 U/L (10-49); Albumin, Serum 2.6 gm/dL (3.4-4.8); Albumin/Globulin Ratio 1.3 (1.2-2.2); Alkaline Phosphatase 162 U/L (46-116); Anion Gap 14 (7-16); Aspartate Amino Transferase 74 U/L (0-34); BUN/Creatinine Ratio 18 Ratio (12-20); Bilirubin,Total 0.2 mg/dL (0.3-1.2); Blood Urea Nitrogen 58 mg/dL (9-23); Calcium 8.1 mg/dL (8.3-10.6); Calcium (Corrected) 9.2 mg/dL (8.5-10.1); Carbon Dioxide 19.6 mMol/L (20.0-31.0); Chloride 121 mMol/L (98-107); Creatinine (Component) 3.2 mg/dL (0.6-1.3); Estimated Creatinine Clearance 24.7 mL/min (>60); Globulin 2.0 gm/dL (2.3-3.5); Glucose 96 mg/dL (74-106); Magnesium 1.9 mg/dL (1.6-2.6); Osmolality,Calculated 323 (275-295); Path Review Blood Smear Sent to Pathologist; Phosphorous 5.6 mg/dL (2.4-5.1); Potassium 3.7 mMol/L (3.4-5.1); Sodium 155 mMol/L (136-145); Total Protein 4.6 gm/dL (5.7-8.2); Vancomycin,Random 16.6 mcg/mL; eGFR 21 See Note
--- NOTE | 2025-01-22 06:03 | PRELIM_ITS ---
CT scan of the head without intravenous contrast (axial sections with sagittal and coronal reformats) January 22, 2025 0337 hours Clinical history: 24 hour follow up monitoring for hemorrhage Comparison: CT of January 21, 2025. Findings: Unchanged subdural hemorrhage along the left frontoparietal convexity. Unchanged trace of subdural hemorrhage along the falx and bilateral tentorial leaflets. Unchanged subdural hemorrhage along the right temporal occipital convexity. No new foci of hemorrhage. No midline shift. Unchanged the other findings. Impression: Unchanged compared to prior. Report Electronically Signed By: Dickson Felder 01/22/2025 6:02:50 AM [EST]
[2025-01-22] MEDS: Magnesium Sulfate 2 GM Ivpb 2 GM/50 ML BAG IV (07:28)
[2025-01-22] MEDS: PIPER/TAZO 3.375 GM PREMIX 3.375 GM/50 ML BAG IV ×2 (08:37→21:54)
--- NOTE | 2025-01-22 08:39 | PD.RESPRO ---
Documentation for date of: 01/22/25 Subjective Subjective Interval history: Patient is a 64-year-old male with a history of afib on Eliquis, CAD s/p multiple stents, CVA, wheelchair-bound, CKD stage IIIb, Castorena's esophagus, esophageal ulcers with upper GI bleed, decubitus ulcers and chronic osteomyelitis of T11-T12 spine who presented to [facility] ED on 01/20/2025 from [facility] for altered mental status. Patient had a baseline GCS of 15 and is normally interactive with limited vocabulary, however nursing staff at the facility found him obtunded with GCS 7 around 4:00 am that morning. Stroke alert was called in the ED and CT head showed possible small hyperdensities in the left cerebral sulci and could not exclude subarachnoid hemorrhage, subsequent MRI showed chronic subdural hygromas without evidence of acute bleed. Teleneuro evaluated the patient and recommended further stroke and metabolic encephalopathy workup. Patient also presented with hypotension requiring vasopressor support despite 3L fluids, and hypothermia requiring warming measures. UA showed evidence of possible infection with positive leukocyte esterase and 42 WBCs however there were not bacteria. Goals of care discussion was held by ICU team with primary decision maker and code status was changed to DNR, then following that decided to change to Limited Code with intubation OK but no chest compressions. Patient was admitted to ICU for management of shock requiring vasopressors. 01/21/2025: Overnight, repeat head CT showed subtle isointense (confirmed not to be hyperintense) acute subdural hemorrhage peripheral to the left parietal convexity, follow-up minimal subdural hemorrhage involving the cerebral falx and cerebellar tentorium. TeleNeuro consultation was initiated at that time, and Neurologist read the CT as similar to previous CT/MRI without new acute bleed. Neurologist did recommend Neurosurgery consultation however, so transfer process was initiated and attempted. Two facilities reviewed the case and reported that bleed was too small for interventions, therefore transfer process was cancelled. Patient was given 2 amps of bicarb last night for metabolic acidosis. Patient received 1 PRBC for Hgb 6.5, there is no notable GI bleeding, however patient did receive fluid resuscitation. The patient is clinically improving this morning, able to arouse to voice, make eye contact, say his name, and say a few words in response to questioning such as just tired . He is able to follow commands. He has 3/5 strength in the upper extremities, not currently moving the lower extremities at this time. Reversal of Eliquis anticoagulation not opted for at this time as there is no new bleed and patient is clinically improving, with history of afib the risk of clot formation is high. He continues to have good urine output at this time at 20-25 ml/hr. 01/22/2025: Patient was seen and examined at bedside this morning. Overnight patient's Levophed got down titrated currently at 0.03. This morning patient was given magnesium 2 g and 1 unit of PRBC was transfused as hemoglobin did drop to 6.9. Patient does seem more alert and awake today and following commands, but still unable to provide meaningful answers to questions. Pupils equally reactive. Repeat head CT did not show any changes and stable as per radiology, will see if neurology recommends again transferring patient for neurosurgery. Blood cultures have been negative in 48 hours and still pending urine culture. Patient's chloride continues to uptrend currently at 121 and sodium 155 with worsening kidney function will uptitrate D5W to 100 cc/h and if no improvement by tomorrow a.m will likely get nephrology.. Switch vancomycin to doxycycline. Will get MRI back to evaluate for tranverse myelitis. Spoke with GI will do EGD to r/o any active bleed. Spoke with patient's who stated that he was progressing to his baseline, but that she still felt he was not to his baseline as he was more drowsy Exam Vital Signs Temp Pulse Resp BP Pulse Ox O2 Del Method O2 Flow Rate 96.3 F L 65 12 120/68 100 Nasal Cannula 4 01/22/25 08:29 01/22/25 08:29 01/22/25 08:29 01/22/25 08:29 01/22/25 08:29 01/22/25 08:03 01/22/25 08:03 Narrative Exam General: More awake and alert, still A/O x0, drowsy, but easily awakens Eyes: PERRL, EOMI. Anicteric, vision grossly intact, nystagmus appreciated. Ears: No ear pain, no ear discharge, Hearing grossly intact. Nose: No nasal discharge. Mouth/Throat: Dry mucous membranes, Poor dentation and some dry blood in lips, no redness, no lesions. Neck: Neck supple, non-tender, no cervical lymphadenopathy. Lungs: Clear ALL to auscultation and percussion, No accessory muscle use. Cardio: Normal S1/S2, regular rhythm, no murmurs, no JVD Abdomen: Soft, non-tender, no palpable masses, peristalsis present, no guarding or rebound. Extremities: Symmetrical, no significant deformities, no peripheral edema , non-tender, peripheral pulses presents. Skin: No rashes, no lesions, warm to touch, Diffuse and scattered scabs throughout body Neuro: Moving ALL UE, following commands, not answering A/O questions, but speech okay, but slow, pupils equally reactive, ALL LE not moving them (baseline as per ) Psych: flat affect. Objective Labs 01/22/25 04:32 01/22/25 04:32 Labs: Laboratory Results - last 24 hr 01/20/25 01/21/25 01/21/25 16:22 10:10 16:17 WBC RBC Hgb 7.1 L 7.4 L Hct 21.6 L* 23.1 L MCV MCH MCHC RDW Std Deviation Plt Count Neut % (Auto) Lymph % (Auto) Marathon % (Auto) Eos % (Auto) Baso % (Auto) Neut # (Auto) Lymph # (Auto) Marathon # (Auto) Eos # (Auto) Baso # (Auto) Immature Gran # (Auto) Absolute Nucleated RBC Immature Gran % Nucleated RBC % Smear Path Review PT INR APTT Sodium 153 H Potassium 3.8 Chloride 121 H* Carbon Dioxide 18.7 L Anion Gap 13 BUN 43 H Creatinine 3.1 H Estim Creat Clear Calc 25.5 L eGFR 22 L BUN/Creatinine Ratio 14 Glucose 107 H Calculated Osmolality 314 H Calcium 8.2 L Corrected Calcium Phosphorus Magnesium Total Bilirubin AST ALT Alkaline Phosphatase Total Protein Albumin Globulin Albumin/Globulin Ratio Random Vancomycin Blood Type O Positive Antibody Screen NEGATIVE Crossmatch See Detail Blood Bank Wristband ID Yes 01/22/25 04:32 WBC 4.6 RBC 2.36 L Hgb 6.9 L* Hct 21.1 L* MCV 89 MCH 29.2 MCHC 32.7 RDW Std Deviation 73.0 H Plt Count 169 D Neut % (Auto) 66 Lymph % (Auto) 14 Marathon % (Auto) 7 Eos % (Auto) 12 H Baso % (Auto) 0 Neut # (Auto) 3.1 Lymph # (Auto) 0.6 L Marathon # (Auto) 0.3 Eos # (Auto) 0.6 H Baso # (Auto) 0.0 Immature Gran # (Auto) 0.05 H Absolute Nucleated RBC 0.05 H Immature Gran % 1 H Nucleated RBC % 1 H Smear Path Review Sent to Pathologist PT 16.7 H INR 1.6 H APTT 40.1 H Sodium 155 H Potassium 3.7 Chloride 121 H* Carbon Dioxide 19.6 L Anion Gap 14 BUN 58 H Creatinine 3.2 H Estim Creat Clear Calc 24.7 L eGFR 21 L BUN/Creatinine Ratio 18 Glucose 96 Calculated Osmolality 323 H Calcium 8.1 L Corrected Calcium 9.2 Phosphorus 5.6 H Magnesium 1.9 Total Bilirubin 0.2 L AST 74 H ALT 34 Alkaline Phosphatase 162 H D Total Protein 4.6 L Albumin 2.6 L Globulin 2.0 L Albumin/Globulin Ratio 1.3 Random Vancomycin 16.6 Blood Type Antibody Screen Crossmatch Blood Bank Wristband ID ABG Interpretation ABG results: 01/20/25 14:54 VBG pH 7.35 VBG pCO2 27 L VBG pO2 82 H VBG Base Excess -10 L Quality Measures Quality Measures VTE prophylaxis Assessment & Plan Assessment Current Active Medications: Generic Name Dose Route Start Last Admin Trade Name Freq PRN Reason Stop Dose Admin Atorvastatin Calcium 40 mg 01/20/25 21:00 01/21/25 20:30 Atorvastatin Calcium 20 Mg Tablet PO 02/19/25 20:59 Not Given HS HANNAH Piperacillin/Tazobactam/Dextrose 3.375 gm in 50 mls @ 12.5 mls/hr 01/20/25 21:00 01/22/25 00:28 Zosyn IV 01/27/25 20:59 Infused Q12HR HANNAH Infusion Protocol Norepinephrine/Dextrose 8 mg in 250 mls @ 9.568 mls/hr 01/21/25 06:09 01/22/25 08:00 Levophed In D5w 8mg/250ml IV 02/19/25 08:17 0.05 mcg/kg/min .Q24H PRN 9.568 mls/hr PER PROTOCOL Titration Protocol 0.05 MCG/KG/MIN Dextrose 1,000 mls @ 50 mls/hr 01/21/25 18:30 01/22/25 04:00 D5w IV 02/20/25 18:29 50 mls/hr .Q20H HANNAH Infusion Vancomycin/Sodium Chloride 100 mls @ 120 mls/hr 01/22/25 10:00 Vancomycin/Ns 500 Mg Ivpb IV 01/22/25 10:49 X1 ONE Levetiracetam 500 mg 01/21/25 09:00 01/21/25 20:20 Levetiracetam Inj 100 Mg/Ml Vial 5ml IVP 02/20/25 08:59 500 mg Q12HR HANNAH Administration Lorazepam 2 mg 01/21/25 06:06 Lorazepam 2 Mg/Ml Vial IVP 01/26/25 06:05 Q3MIN PRN SEIZURES Pantoprazole Sodium 40 mg 01/20/25 21:00 01/21/25 20:21 Pantoprazole Inj 40 Mg Vial IVP 02/19/25 20:59 40 mg BID HANNAH Administration Pharmacy Consult 1 each 01/20/25 14:15 Vancomycin Pharmacy To Dose 1 Each Each IV 02/19/25 14:14 QDAY PRN CONSULT Pharmacy Consult 1 each 01/20/25 14:18 Pharmacy Renal Dose Adjustment 1 Ea XX 02/19/25 14:17 PRN PRN CONSULT Zinc Acetate/Diphenhydramine 0 gm 01/21/25 20:52 Diphenhydramine/Zn Acet 2% Cr 30 Gm Tube TOP 02/20/25 20:51 Q6HR PRN RASH Plan 64-year-old male with a history of A-fib (on Eliquis), CAD status post multiple stents, CVA, wheelchair-bound, CKD stage IIIb, Castorena's esophagus, esophageal ulcers with upper GI bleed, and chronic osteomyelitis of T11-T12 spine who presented to [facility] ED on 01/20 from SN[facility] for altered mental status. Patient was admitted to ICU for management of shock requiring vasopressors. NEURO #Acute encephalopathy #Subdural hemorrhage L parietal convexity, cerebral falx, cerebellar tentorium DDx: Metabolic derangement, CVA Dx: ? Patient's last known well was 399 on 01/20, with baseline of patient being able to follow commands and respond with very limited vocabulary, however after patient's last known well, patient became minimally responsive and increasingly somnolent ? Patient noted to have recent fall about a day before admission with unclear head trauma and loss of consciousness per patient's ? CTA head/neck 01/20 significant for 40% stenosis of the left carotid bifurcation, stenosis of P1 segment of left posterior cerebral artery, calcification of juxtasellar portions of internal carotid arteries, irregularity of M1 segment of left middle cerebral artery, and no definite large vessel occlusions ? CT head #1 01/20 significant for small hypodensities in left cerebral sulci, could not exclude small areas of subarachnoid hemorrhage ? MRI brain 01/20 shows no acute infarct and no definite acute hemorrhage, but does note chronic subdural fluid accumulation with the largest being in the left cerebral hemisphere ? Follow up CT head #2 01/21 at 1:00 am showed subtle isointense acute subdural hemorrhage peripheral to the left parietal convexity, minimal subdural hemorrhage involving the cerebral falx and cerebellar tentorium Teleneuro determined this was unchanged from the prior imaging above - Follow up CT head #3 01/22/2025 at 5 am did not show changes as per radiology. ? Two facilities neurosurgery teams determined no need for acute interventions, bleed too small Rx: ? Continue neurochecks every 2 hours ? Manage underlying shock - In house neurology consulted, appreciate recommendations Follow-up: ? Wait for neurology recs to either proceed with possible transfer or medical management CARDIO #Shock #Hypothermia #Bradycardia DDx: Septic shock, distributive shock Dx: ? Patient presented with initial blood pressure of 98/56 and remained hypotensive even with 3 L of NS in ED ? Patient presented with temperature of 90.5 ?F ? Patient initially tachycardic at 146 heart rate in the ED, however on admission heart rate was noted to be bradycardic in the 40s to 50s ? Bedside ultrasound performed in ED by ICU team after fluid resuscitation in ED showed minimally compressible IVC and hepatic vein, suggestive of adequate fluid resuscitation, with a bradycardic heart that appeared to have adequate ventricular motion ? Estimated cardiac output on 01/20 noted to be 21.5 and estimated cardiac index 9.6 using Jose Roberto formula, low suspicion for cardiogenic shock ? Hydrocortisone 100 mg x 1 given on 01/20 Rx: ? Continue vern hugger warmer ? Wean down norepinephrine ? Continue to empirically treat with antibiotics - MRI to R/O tranverse myelitis causing neurogenic shock Follow-up: ? If patient remains hypotensive with MAP below 65, then will reinvestigate IVC, hepatic vein, and heart with bedside ultrasound to determine fluid responsiveness status, and fluid bolus if fluid responsive ? If patient is not fluid responsive and remains hypotensive with MAP below 65, will consider starting additional vasopressors such as vasopressin #Atrial fibrillation Dx: ? Patient does have longstanding history of atrial fibrillation, agriculture professor is Dr. Yadav in [place] ? EKG on admission notes atrial fibrillation ? Patient has been prescribed Eliquis 5 mg twice daily at home Rx: ? Will hold home Eliquis given hypotension with decreased hemoglobin and dried blood around mouth on presentation, cannot rule out upper GI bleed at this time PULM #No active problems GI #History of Castorena's esophagus #History of esophageal ulcers with upper GI bleed Dx: ? During recent hospitalization on 12/31 for decreased oral intake and at least one episode of hematemesis, patient was transfused with 1 unit of PRBC on 01/01 ? EGD on 01/02 showed esophageal ulcers with subcutaneous mucosal changes consistent with Castorena's esophagus, gastritis, and erythematous duodenopathy Rx: ? Continue to monitor for possible recurrence of upper GI bleed ? Protonix 40 mg twice daily - GI consulted will do EGD Follow-up: ? Post transfusion H/H NEPHRO #Normal anion gap metabolic acidosis #Uremia Dx: ? Bicarb on 01/20 16.7 => 13.1--> 19.6 ? BUN 64 on admission--->58 ? Anion gap 15 on admission ? VBG on 01/20 pH 7.35 and pCO2 27 ? Dennis formula on 01/20 estimates expected pCO2 compensation at 26-30, suggesting appropriate respiratory compensation and a pure metabolic acidosis, likely is secondary to kidney injury ? 2 amps of sodium bicarb administered on 01/20 Rx: ? Will continue to monitor with daily CMP ? D5W at 100cc/hr Follow-up: ? If repeat renal function panel continues to show metabolic acidosis, will consider additional amps of sodium bicarb - Consider Nephro consult if worsening electrolyte imbalance and kidney function #Acute kidney injury #Electrolyte imbalance #Hypernatremia #Hyperchloremia DDx: ATN, prerenal azotemia Dx: ? Creatinine in ED initially 3.3-->, elevated from baseline of 2.0 ? Patient received 3 L of NS in the ED for fluid resuscitation ? Still having good urine output - Na 155 and chloride 121 Rx: ? D5W at 100cc/hr Follow up: - Consider Nephro consult if kidney function or electrolyte imbalance worsens URO #No active problems HEME #Anemia, normocytic DDx: Upper GI bleed, anemia of chronic disease Dx: ? Patient has had a history of upper GI bleed secondary to bleeding ulcers, and has required transfusion of 1 PRBC during previous hospitalization about 1 month ago ? Hemoglobin on initial presentation 7.5, decreased to 6.8, but this is likely dilutional from the 3 L of NS that the patient received while in the ED Rx: ? Continue holding patient's home Eliquis ? Pantoprazole 40 mg twice daily ? Transfused 1 PRBC - GI consulted will do EGD Follow-up: ? Repeat post H/H ENDO #Elevated TSH #Decreased free T4 DDx: Euthyroid sick syndrome, hypothyroidism Dx: ?TSH on admission 9.68 and T4 on admission 0.84 Rx: ? Resolved underlying metabolic derangement ? Patient to follow-up outpatient ? Repeat TSH and Free T4 in a few days after stabilization ID #History of Enterococcus faecalis in urine #History of chronic osteomyelitis T12-L2 Dx: ? Per chart review, patient does have a history of Enterococcus faecalis in urine and chronic osteomyelitis with previous wound cultures growing pansensitive MSSA ? MRI lumbar spine 12/15/2024 notes osteomyelitis in T12-L2, patient had previously pulled out PICC line during past hospitalizations, so was recently discharged with oral antibiotics ? WBC within normal range on admission ? Procalcitonin within normal limits at 0.29 on admission ? CRP elevated at 8.2 on 01/20 ? Blood cultures collected 01/20, pending ? Urine culture collected 01/20, pending Rx: ? DC Vancomycin IV daily, pharmacy to dose (01/20?01/22) - Start doxycycline (01/22-) ? Piperacillin/tazobactam 3.375 g every 12 hours (01/20?) ? Aggressive empiric antibiotic regimen given previous resistance of Enterococcus faecalis in urine and severity of patient's shock - MRI back to rule out tranverse myelitis MSK #No active problems SKIN #Multiple scattered scabs DDx: Pruritus, flea bites Dx: ?Multiple diffuse and scattered scabs noted throughout the body, most numerous and prominent on bilateral upper extremities and chest Follow-up: ? 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 Lower back ulcer (on admission estimate size 5 cm x 3 cm x 0.5 cm) with exposure to subcutaneous tissue, slight bloody discharge without expression of pus noted on admission, currently does not appear infected ? Patient does have a history of a chronic stage IV ulcer in his mid back, possible source of chronic osteomyelitis during previous admissions Rx: ? Wound care referral ? Keep patient on his sides Follow-up: ? Monitor size and characteristics of wound daily, if worsening consider wound culture and referral to general surgery for debridement Feeding/fluids: NPO; Levophed Analgesia: N/A Sedation: N/A Thromboprophylaxis: SCDs Head up position: 30 degrees Ulcer prophylaxis: Protonix 40 mg BID Glycemic control: AM blood glucose & bedside glucose checks Q6h Spontaneous breathing trial: N/A Bowel care: N/A Indwelling catheters: RIJ Central line Deescalation of antibiotics: Currently on Zosyn & Doxy CODE STATUS: Limited code intubation OK no chest compressions Reason for ICU care: Shock requiring vasopressors and subdural hemorrhage Patient plan of care was discussed with the attending manager solution, Dr. Arnold. Pedro Anne, PGY-2 Attending Provider Attestation/Addendum Patient seen and examined, discussed with resident team. In brief this is a 64-year-old male admitted to the ICU with presumed septic shock although cultures have been negative to date. He is on low-dose Levophed. He originally arrived with altered mentation and a head CT was performed. Head CT is suggestive of a subdural hematoma. Follow-up head CT has remained stable. Neurology recommendations are appreciated. Case was discussed with neurosurgery by the ICU team yesterday and transfer was not recommended. He is currently on neurochecks. He has history of A-fib and his Eliquis is now on hold. This morning he had a drop in his hemoglobin as being transfused PRBCs. He has a history of esophageal ulcer. GI has been consulted and the patient will be scoped today. Patient's sodium level is elevated at 155 and his D5W rate has been increased to 100 cc an hour. He is noted to have acute on chronic kidney disease. His creatinine has been trending upward and if there is no improvement tomorrow will need nephrology consult. Monitor I's and O's Case discussed with ICU team Labs, imaging and records reviewed Approximately 38 critical care minutes required for evaluation, exam, review, intervention, discussion formulation of plan of care for this criticall ill patient with shock on vasopressor support.
[2025-01-22] MEDS: levETIRAcetam INJ 100 MG/ML VIAL 5ML 500 MG IVP ×2 (08:41→21:56)
--- NOTE | 2025-01-22 09:18 | PCS.ST ---
Swallow Evaluation completed. See report for details. No s/s of aspiration. Oral dysphagia. Recommend Dysphagia 2 (minced) diet. ST will follow up
[2025-01-22] MEDS: VANCOMYCIN/NS 500 MG IVPB 100 ML 120 MG IV (09:45)
--- NOTE | 2025-01-22 10:23 | RESP.EEG ---
EEG COMPLETED AND READY FOR REVIEW
--- NOTE | 2025-01-22 11:16 | XR_ITS ---
Examination: MRI thoracic spine without contrast. Date and time of exam: January 22, 2025, 1747 hours INDICATIONS: Weakness in the extremities, diagnosis transverse myelitis Technique: Multiple sagittal and axial images of the thoracic spine have been obtained. T1 weighted localizer, sagittal T2 weighted images, TR 30-50, TE 148, T1 weighted sagittal images, TR 650, TE 14, T2-weighted transverse images, TR 6770, TE 142 Findings: Limited study, the patient pulled his IV out and would not cooperate for the examination There are sagittal views only of the thoracic spine, T1-weighted There is mild diffuse thoracic degenerative disc disease Schmorl's nodes at the upper endplates of 2 dorsal vertebral bodies 2 mm disc protrusion at the T7-T8 level but no impingement upon the thoracic cord Thoracic cord is very poorly visualized because of patient motion Impression: Severely limited study, patient could not cooperate for the examination Mild diffuse thoracic degenerative disc disease 2 mm disc protrusion T7-T8
[2025-01-22] MEDS: DEXTROSE 5%-WATER 1,000 ML 100 ML IV (13:14)
--- NOTE | 2025-01-22 13:16 | PC.SS ---
Update: Patient on room air. P.O. feeding, currently NPO. Pressor support discontinued. Patient receiving IV antibiotics. Afebrile. Plan is for patient to obtain EGD and MRI. Dr. Claros and neurology are consulting.
--- NOTE | 2025-01-22 14:37 | PD.RESCONSUL ---
HPI Data of Consult Consult date: 01/22/25 Requesting Physician: Shayna Allen MD Admitting Provider: Shayna Allen MD Attending Provider: Shayna Allen MD Primary Care Provider: Christine Kay MD Consult Narrative Reason for consult: GI bleed History of present illness: Mr. 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 Patient was admitted to ICU for management of shock requiring vasopressors. Per ICU team patient is more awake from baseline however he was not oriented alert upon evaluation, most information gathered from chart review due to poor mentation. When asked about pain, the patient denies any discomfort or symptoms. Physical examination revealed red, crusted blood on the the lips. The abdomen is soft and non-tender, with no signs of hematochezia, melena, or hematuria. CT's and MRIs imaging showed a subdural hemorrhage in the left parietal convexity, cerebral falx, and cerebral tentorium. The patient?s hemoglobin and hematocrit are downtrending, with a hemoglobin of 6.9 and hematocrit of 21.1. The patient has received 2 units of PRBCs. An EGD was performed on 12/31 and showed an esophageal ulcer with submucosal changes consistent with esophagitis and gastritis. There is no history of alcohol use disorder per chart review. The ICU team is concerned about a possible GI bleed due to the patient's prior history of esophageal ulcers that required transfusion and subdural hematoma. GI consultation is requested for evaluation and management of a potential GI bleed. cc:: cc: Shayna Allen MD Exam Vital Signs Temp Pulse Resp BP Pulse Ox O2 Del Method O2 Flow Rate 97.5 F 74 15 89/58 L 99 Room Air 4 01/22/25 12:01 01/22/25 14:00 01/22/25 14:00 01/22/25 14:00 01/22/25 13:45 01/22/25 12:01 01/22/25 08:03 Narrative Exam General: More awake and alert, still A/O x0, drowsy, but easily awakens Eyes: PERRL, EOMI. Anicteric, vision grossly intact, nystagmus appreciated. Ears: No ear pain, no ear discharge, Hearing grossly intact. Nose: No nasal discharge. Mouth/Throat: Dry mucous membranes, Poor dentation and some dry blood in lips, no redness, no lesions. Neck: Neck supple, non-tender, no cervical lymphadenopathy. Lungs: Clear ALL to auscultation and percussion, No accessory muscle use. Cardio: Normal S1/S2, regular rhythm, no murmurs, no JVD Abdomen: Soft, non-tender, no palpable masses, peristalsis present, no guarding or rebound. Extremities: Symmetrical, no significant deformities, no peripheral edema , non-tender, peripheral pulses presents. Skin: No rashes, no lesions, warm to touch, Diffuse and scattered scabs throughout body Neuro: Moving ALL UE, following commands, not answering A/O questions, but speech okay, but slow, pupils equally reactive, ALL LE not moving them (baseline as per ) Psych: flat affect. Results Labs 01/23/25 04:30 01/23/25 13:30 Labs: Short CBC 01/21/25 01/22/25 Range/Units 16:17 04:32 WBC 4.6 (3.8-10.6) Thou/mm3 Hgb 7.4 L 6.9 L* (13.5-16.0) g/dL Hct 23.1 L 21.1 L* (41.0-53.0) % Plt Count 169 D (140-440) Thou/mm3 BMP 01/21/25 01/22/25 16:17 04:32 Sodium 153 H 155 H Potassium 3.8 3.7 Chloride 121 H* 121 H* Carbon Dioxide 18.7 L 19.6 L BUN 43 H 58 H Creatinine 3.1 H 3.2 H Glucose 107 H 96 Calcium 8.2 L 8.1 L Liver Function 01/22/25 Range/Units 04:32 Total Bilirubin 0.2 L (0.3-1.2) mg/dL AST 74 H (0-34) U/L ALT 34 (10-49) U/L Alkaline Phosphatase 162 H D (46-116) U/L Albumin 2.6 L (3.4-4.8) gm/dL ABG Interpretation ABG results: 01/20/25 14:54 VBG pH 7.35 VBG pCO2 27 L VBG pO2 82 H VBG Base Excess -10 L Quality Measures Quality Measures VTE prophylaxis Medications Home Medications and Allergies Home Medications ?Medication ?Instructions ?Recorded ?Confirmed ?Type isosorbide mononitrate 30 mg 60 mg PO QDAY 10/20/23 01/20/25 History tablet,extended release 24 hr Held on 01/05/25. Instructions: f//u wtih cardiology acetaminophen 325 mg tablet 650 mg PO Q4H PRN pain (scale 01/01/25 01/20/25 History score 1-3) and fever atorvastatin 40 mg tablet 40 mg PO HS HDL 01/01/25 01/20/25 History ascorbic acid (vitamin C) 500 mg 500 mg PO BID supplement 01/20/25 01/20/25 History tablet (C-500) bisacodyl 10 mg rectal suppository 10 mg SD QDAY PRN constipation 01/20/25 01/20/25 History (Dulcolax (bisacodyl)) cephalexin 500 mg capsule 500 mg PO Q6H osteomyelitis 01/20/25 01/20/25 History hydroxyzine HCl 25 mg tablet 25 mg PO BID Itching 01/20/25 01/20/25 History metoprolol tartrate 100 mg tablet 100 mg PO BID HTN 01/20/25 01/20/25 History multivitamin with folic acid 400 1 tab PO QDAY supplement 01/20/25 01/20/25 History mcg tablet (Daily-Lissette (with folic acid)) sodium phosphates 19 gram-7 118 ml SD QDAY PRN constipation 01/20/25 01/20/25 History gram/118 mL enema (Fleet Enema) zinc sulfate 50 mg zinc (220 mg) 50 mg PO QDAY supplement 01/20/25 01/20/25 History capsule (Zinc-220) Allergies Allergy/AdvReac Type Severity Reaction Status Date / Time bee pollen Allergy Severe Anaphylaxis Verified 01/20/25 06:47 Sulfa (Sulfonamide Allergy Intermediate Swelling Verified 01/20/25 06:47 Antibiotics) of Lip/Tongue/Throat ampicillin Allergy Unknown Hives Verified 01/20/25 06:47 hydrocodone AdvReac Unknown Nausea Verified 01/20/25 06:47 COLLAGEN Allergy Intermediate Rash Uncoded 01/20/25 06:47 Visit Medications Atorvastatin Calcium (Atorvastatin Calcium 20 Mg Tablet) 40 mg PO HS HANNAH Stop: 02/19/25 20:59 Last Admin: 01/21/25 20:30 Dose: Not Given Piperacillin/Tazobactam/Dextrose (Zosyn) 3.375 gm in 50 mls @ 12.5 mls/hr IV Q12HR HANNAH; Protocol Stop: 01/27/25 20:59 Last Admin: 01/22/25 08:37 Dose: 25 mls/hr Norepinephrine/Dextrose (Levophed In D5w 8mg/250ml) 8 mg in 250 mls @ 9.568 mls/hr IV .Q24H PRN; Protocol PRN Reason: PER PROTOCOL Stop: 02/19/25 08:17 Last Titration: 01/22/25 09:00 Dose: 0.03 mcg/kg/min, 5.741 mls/hr Dextrose (D5w) 1,000 mls @ 100 mls/hr IV .Q10H HANNAH Stop: 02/21/25 10:26 Last Admin: 01/22/25 13:14 Dose: 100 mls/hr Doxycycline Hyclate 100 mg/ (Sodium Chloride) 100 mls @ 100 mls/hr IV BID HANNAH Stop: 01/29/25 20:59 Levetiracetam (Levetiracetam Inj 100 Mg/Ml Vial 5ml) 500 mg IVP Q12HR HANNAH Stop: 02/20/25 08:59 Last Admin: 01/22/25 08:41 Dose: 500 mg Lorazepam (Lorazepam 2 Mg/Ml Vial) 2 mg IVP Q3MIN PRN PRN Reason: SEIZURES Stop: 01/26/25 06:05 Pantoprazole Sodium (Pantoprazole Inj 40 Mg Vial) 40 mg IVP BID HANNAH Stop: 02/19/25 20:59 Last Admin: 01/22/25 08:42 Dose: 40 mg Pharmacy Consult (Pharmacy Renal Dose Adjustment 1 Ea) 1 each XX PRN PRN PRN Reason: CONSULT Stop: 02/19/25 14:17 Zinc Acetate/Diphenhydramine (Diphenhydramine/Zn Acet 2% Cr 30 Gm Tube) 0 gm TOP Q6HR PRN PRN Reason: RASH Stop: 02/20/25 20:51 Discontinued Medications Hydrocortisone Sodium Succinate (Hydrocortisone Sod Succ Inj 100 Mg 2 Ml Vial) 100 mg IV X1 ONE Stop: 01/20/25 16:34 Last Admin: 01/20/25 16:46 Dose: 100 mg Sodium Chloride (Ns) 1,000 mls @ 999 mls/hr IV .Q1H1M ONE Stop: 01/20/25 08:26 Last Infusion: 01/20/25 08:49 Dose: Infused Ceftriaxone Sodium/Dextrose (Rocephin/D5w 1gm Iv Premix) 1 gm in 50 mls @ 100 mls/hr IV X1 ONE Stop: 01/20/25 07:56 Last Infusion: 01/20/25 08:20 Dose: Infused Sodium Chloride (Ns) 1,000 mls @ 999 mls/hr IV .Q1H1M ONE Stop: 01/20/25 08:27 Magnesium Sulfate (Magnesium Sulfate Ivpb) 2 gm in 50 mls @ 25 mls/hr IV X1 ONE Stop: 01/20/25 09:34 Last Infusion: 01/20/25 09:34 Dose: Infused Sodium Chloride (Ns) 1,000 mls @ 999 mls/hr IV .Q1H1M ONE Stop: 01/20/25 08:47 Last Infusion: 01/20/25 09:44 Dose: Infused Norepinephrine/Dextrose (Levophed In D5w 8mg/250ml) 8 mg in 250 mls @ 9.568 mls/hr IV .Q24H PRN; Protocol PRN Reason: PER PROTOCOL Stop: 02/19/25 08:17 Last Titration: 01/21/25 10:00 Dose: Infused Doxycycline Hyclate 100 mg/ (Sodium Chloride) 100 mls @ 100 mls/hr IV X1 ONE Stop: 01/20/25 09:17 Last Infusion: 01/20/25 13:48 Dose: Infused Sodium Chloride (Ns) 1,000 mls @ 999 mls/hr IV .Q1H1M ONE Stop: 01/20/25 09:19 Last Infusion: 01/20/25 10:47 Dose: Infused Ceftriaxone Sodium/Dextrose (Rocephin/D5w 1gm Iv Premix) 1 gm in 50 mls @ 100 mls/hr IV X1 ONE Stop: 01/20/25 09:23 Last Infusion: 01/20/25 09:42 Dose: Infused Piperacillin/Tazobactam/Dextrose (Zosyn) 3.375 gm in 50 mls @ 100 mls/hr IV X1 ONE; Protocol Stop: 01/20/25 14:59 Last Infusion: 01/20/25 15:03 Dose: Infused Vancomycin HCl/Dextrose (Vancomycin/D5w 1,250 Mg Ivpb) 250 mls @ 120 mls/hr IV X1 ONE Stop: 01/20/25 16:34 Last Admin: 01/20/25 15:06 Dose: 120 mls/hr Magnesium Sulfate (Magnesium Sulfate Ivpb) 2 gm in 50 mls @ 25 mls/hr IV X1 ONE Stop: 01/20/25 16:46 Last Admin: 01/20/25 15:03 Dose: 25 mls/hr Dextrose (D5w) 1,000 mls @ 50 mls/hr IV .Q20H [facility] Stop: 02/20/25 18:29 Last Infusion: 01/22/25 04:00 Dose: 50 mls/hr Vancomycin/Sodium Chloride (Vancomycin/Ns 500 Mg Ivpb) 100 mls @ 120 mls/hr IV X1 ONE Stop: 01/22/25 10:49 Last Admin: 01/22/25 09:45 Dose: 120 mls/hr Magnesium Sulfate (Magnesium Sulfate Ivpb) 2 gm in 50 mls @ 25 mls/hr IV X1 ONE Stop: 01/22/25 08:27 Last Admin: 01/22/25 07:28 Dose: 25 mls/hr Levetiracetam (Levetiracetam Inj 100 Mg/Ml Vial 5ml) 1,500 mg IVP X1 ONE Stop: 01/21/25 05:20 Last Admin: 01/21/25 05:32 Dose: 1,500 mg Pantoprazole Sodium (Pantoprazole Inj 40 Mg Vial) 40 mg IVP QDAY HANNAH Stop: 02/19/25 15:14 Last Admin: 01/20/25 16:46 Dose: 40 mg Pharmacy Consult (Vancomycin Pharmacy To Dose 1 Each Each) 1 each IV QDAY PRN PRN Reason: CONSULT Stop: 02/19/25 14:14 Sodium Bicarbonate (Sodium Bicarb Inj 8.4% Syr 50 Ml Syringe) 50 ml IV X1 ONE Stop: 01/20/25 16:08 Last Admin: 01/20/25 16:47 Dose: 50 ml Sodium Bicarbonate (Sodium Bicarb Inj 8.4% Syr 50 Ml Syringe) 50 ml IV X1 ONE Stop: 01/20/25 16:49 Last Admin: 01/20/25 16:50 Dose: 50 ml Sodium Bicarbonate (Sodium Bicarb Inj 8.4% Syr 50 Ml Syringe) 50 ml IV X1 ONE Stop: 01/20/25 21:37 Last Admin: 01/20/25 21:41 Dose: 50 ml Sodium Bicarbonate (Sodium Bicarb Inj 8.4% Syr 50 Ml Syringe) 50 ml IV X1 ONE Stop: 01/21/25 06:11 Last Admin: 01/21/25 06:29 Dose: 50 ml Assessment & Plan Plan Mr. Schrader is a 64-year-old male with extensive medical history history: afib on Eliquis Castorena's esophagus, esophageal ulcers with upper GI bleed, who presented to [facility] ED on 01/20/2025 from [facility] for altered mental status and hypotension. Patient was admitted to ICU for management of shock requiring vasopressors. Gastroenterology consulted for Possible GIB Evaluation and Management #Acute blood loss anemia in setting of #GI bleed, likely upper #Normocytic anemia #History of esophageal ulcer #History of Castorena's esophagus The patient?s downtrending hemoglobin and hematocrit (Hg 6.9, Hct 21.1) may be indicative of ongoing shock and worsening GI bleed. Given the patient?s prior history of esophageal ulcer, there is concern that the current shock and hypotension are exacerbating the GI bleed, leading to further blood loss. The patient has already received 2 units of PRBCs, with post-transfusion hemoglobin of 7.4 and hematocrit of 23.1. The ongoing instability warrants close monitoring and further management of both shock and potential active GI bleeding. - Hold Eliquis - EGD tonight - Obtain consent for fiberoptic esophagogastroduodenoscopy with possible biopsy possible therapeutic intervention under intravenous moderate sedation - Protonix 40 mg twice daily - Continue to monitor H&H, transfuse hemoglobin less than 7 Patient seen and assessed under supervision of attending physician Dr.Kumar Nisha Ramirez MD PGY-1, Internal Medicine Please note: this document was transcribed using voice recognition technology; minor inaccuracies may be present. Attending Provider Attestation/Addendum Patient evaluated Laboratory data reviewed imaging studies reviewed drop in hemoglobin hematocrit to 6.2 requiring blood transfusion Previous endoscopy on 12/30/2024 showed multiple cratered distal esophageal ulcers and GE junction ulcers most likely source of bleeding is that as patient is on Eliquis Suggestions Continue IV Protonix Consent obtained for fiberoptic esophagogastroduodenoscopy with possible biopsy possible therapeutic intervention under intravenous moderate sedation scheduled for today Serial CBC Hold the Eliquis Will follow the patient Thank you once again for the opportunity to participate in the care of this patient
[2025-01-22 14:41] LABS: Hematocrit 23.1 % (41.0-53.0)
[2025-01-22 14:49] LABS: Hemoglobin 7.4 g/dL (13.5-16.0)
[2025-01-22 15:05] LABS: Base Excess, Venous 1 (-3-3); O2 Saturation, Venous 95 % (96-97); PCO2, Venous 37 mmHg (36-56); PO2, Venous 71 mmHg (15-58); pH, Venous 7.44 (7.33-7.66)
[2025-01-22 15:17] LABS: Sodium 154 mMol/L (136-145)
[2025-01-22] MEDS: NA SU/NAHCO3/KC/PEG (Golytely) 4,000 ML BTL 4000 ML PO (18:53)
[2025-01-22 19:54] LABS: Albumin, Serum 2.6 gm/dL (3.4-4.8); Anion Gap 14 (7-16); BUN/Creatinine Ratio 17 Ratio (12-20); Blood Urea Nitrogen 53 mg/dL (9-23); Calcium 8.3 mg/dL (8.3-10.6); Calcium (Corrected) 9.4 mg/dL (8.5-10.1); Carbon Dioxide 19.5 mMol/L (20.0-31.0); Chloride 120 mMol/L (98-107); Creatinine (Component) 3.1 mg/dL (0.6-1.3); Estimated Creatinine Clearance 25.5 mL/min (>60); Glucose 89 mg/dL (74-106); Osmolality,Calculated 316 (275-295); Phosphorous 5.6 mg/dL (2.4-5.1); Potassium 3.7 mMol/L (3.4-5.1); Sodium 153 mMol/L (136-145); eGFR 22 See Note
--- NOTE | 2025-01-22 20:20 | XR_ITS ---
EXAMINATION: AP chest single view TECHNIQUE: AP portable semiupright chest single view Date and time: January 22, 2025, 2041 hours INDICATIONS: Post orogastric tube placement FINDINGS: Orogastric tube in the proximal stomach Air distended small bowel loops Mild prominence left ventricle IMPRESSION: Advance the orogastric tube 4 cm
--- NOTE | 2025-01-22 20:51 | PD.RESPRO ---
Documentation for date of: 01/22/25 Subjective Subjective Interval history: Patient seen today in the ICU found awake, alert, very hard of hearing and nonverbal, responds to commands with repeated stimulation. Vitals and labs reviewed currently on levophed for pressor support. Imaging reviewed Mild subdural hemorrhage bilaterally peripheral to the cerebral hemispheres, mild subdural hemorrhage cerebral falx and cerebellar tentorium. Patients subdural hemorrhage can be monitored with repeat head CT in 48 hours. Continue neuro checks. Patient was taken for MRI of spine for evaluation of possible transverse myelitis, however patient was uncooperative and was unable to get scan. Per patient is progressing to baseline although not completely there yet. Exam Vital Signs Temp Pulse Resp BP Pulse Ox O2 Del Method O2 Flow Rate 97.0 F 88 15 121/84 100 Room Air 4 01/22/25 18:45 01/22/25 18:45 01/22/25 18:45 01/22/25 18:45 01/22/25 18:45 01/22/25 18:45 01/22/25 08:03 Narrative Exam Physical Exam GENERAL: NAD, non verbal, very hard of hearing, flat affect HEENT: Moist mucosa. Eyes open, symmetrical, & clear CARDIO: Heart RRR, no obvious murmurs PULM: No noted coughing/dyspnea CTA B/L, no R/W/R GI: Abdomen soft, nondistended, no pain on palpation. BSx4 NEURO: nonverbal, able to move bilateral upper extremities, Objective Labs 01/23/25 04:30 01/23/25 04:30 Labs: Laboratory Results - last 24 hr 01/20/25 01/22/25 01/22/25 16:22 04:32 13:07 WBC 4.6 RBC 2.36 L Hgb 6.9 L* 7.4 L Hct 21.1 L* 23.1 L MCV 89 MCH 29.2 MCHC 32.7 RDW Std Deviation 73.0 H Plt Count 169 D Neut % (Auto) 66 Lymph % (Auto) 14 [place] % (Auto) 7 Eos % (Auto) 12 H Baso % (Auto) 0 Neut # (Auto) 3.1 Lymph # (Auto) 0.6 L [place] # (Auto) 0.3 Eos # (Auto) 0.6 H Baso # (Auto) 0.0 Immature Gran # (Auto) 0.05 H Absolute Nucleated RBC 0.05 H Immature Gran % 1 H Nucleated RBC % 1 H Smear Path Review Sent to Pathologist PT 16.7 H INR 1.6 H APTT 40.1 H VBG pH VBG pCO2 VBG pO2 VBG O2 Sat (Gretel) VBG Base Excess Sodium 155 H Potassium 3.7 Chloride 121 H* Carbon Dioxide 19.6 L Anion Gap 14 BUN 58 H Creatinine 3.2 H Estim Creat Clear Calc 24.7 L eGFR 21 L BUN/Creatinine Ratio 18 Glucose 96 Calculated Osmolality 323 H Calcium 8.1 L Corrected Calcium 9.2 Phosphorus 5.6 H Magnesium 1.9 Total Bilirubin 0.2 L AST 74 H ALT 34 Alkaline Phosphatase 162 H D Total Protein 4.6 L Albumin 2.6 L Globulin 2.0 L Albumin/Globulin Ratio 1.3 Random Vancomycin 16.6 Blood Type O Positive Antibody Screen NEGATIVE Crossmatch See Detail Blood Bank Wristband ID Yes 01/22/25 01/22/25 14:47 19:11 WBC RBC Hgb Hct MCV MCH MCHC RDW Std Deviation Plt Count Neut % (Auto) Lymph % (Auto) [place] % (Auto) Eos % (Auto) Baso % (Auto) Neut # (Auto) Lymph # (Auto) [place] # (Auto) Eos # (Auto) Baso # (Auto) Immature Gran # (Auto) Absolute Nucleated RBC Immature Gran % Nucleated RBC % Smear Path Review PT INR APTT VBG pH 7.44 VBG pCO2 37 D VBG pO2 71 H VBG O2 Sat (Gretel) 95 L VBG Base Excess 1 Sodium 154 H 153 H Potassium 3.7 Chloride 120 H Carbon Dioxide 19.5 L Anion Gap 14 BUN 53 H Creatinine 3.1 H Estim Creat Clear Calc 25.5 L eGFR 22 L BUN/Creatinine Ratio 17 Glucose 89 Calculated Osmolality 316 H Calcium 8.3 Corrected Calcium 9.4 Phosphorus 5.6 H Magnesium Total Bilirubin AST ALT Alkaline Phosphatase Total Protein Albumin 2.6 L Globulin Albumin/Globulin Ratio Random Vancomycin Blood Type Antibody Screen Crossmatch Blood Bank Wristband ID ABG Interpretation ABG results: 01/20/25 01/22/25 14:54 14:47 VBG pH 7.35 7.44 VBG pCO2 27 L 37 D VBG pO2 82 H 71 H VBG Base Excess -10 L 1 Quality Measures Quality Measures VTE prophylaxis Assessment & Plan Assessment Current Active Medications: Generic Name Dose Route Start Last Admin Trade Name Freq PRN Reason Stop Dose Admin Atorvastatin Calcium 40 mg 01/20/25 21:00 01/21/25 20:30 Atorvastatin Calcium 20 Mg Tablet PO 02/19/25 20:59 Not Given HS HANNAH Piperacillin/Tazobactam/Dextrose 3.375 gm in 50 mls @ 12.5 mls/hr 01/20/25 21:00 01/22/25 08:37 Zosyn IV 01/27/25 20:59 25 mls/hr Q12HR HANNAH Administration Protocol Norepinephrine/Dextrose 8 mg in 250 mls @ 9.568 mls/hr 01/21/25 06:09 01/22/25 18:00 Levophed In D5w 8mg/250ml IV 02/19/25 08:17 0.01 mcg/kg/min .Q24H PRN 1.914 mls/hr PER PROTOCOL Titration Protocol 0.05 MCG/KG/MIN Dextrose 1,000 mls @ 100 mls/hr 01/22/25 10:28 01/22/25 13:14 D5w IV 02/21/25 10:26 100 mls/hr .Q10H HANNAH Administration Doxycycline Hyclate 100 mg/ 100 mls @ 100 mls/hr 01/22/25 21:00 Sodium Chloride IV 01/29/25 20:59 BID HANNAH Levetiracetam 500 mg 01/21/25 09:00 01/22/25 08:41 Levetiracetam Inj 100 Mg/Ml Vial 5ml IVP 02/20/25 08:59 500 mg Q12HR HANNAH Administration Lorazepam 2 mg 01/21/25 06:06 Lorazepam 2 Mg/Ml Vial IVP 01/26/25 06:05 Q3MIN PRN SEIZURES Pantoprazole Sodium 40 mg 01/20/25 21:00 01/22/25 08:42 Pantoprazole Inj 40 Mg Vial IVP 02/19/25 20:59 40 mg BID HANNAH Administration Pharmacy Consult 1 each 01/20/25 14:18 Pharmacy Renal Dose Adjustment 1 Ea XX 02/19/25 14:17 PRN PRN CONSULT Zinc Acetate/Diphenhydramine 0 gm 01/21/25 20:52 Diphenhydramine/Zn Acet 2% Cr 30 Gm Tube TOP 02/20/25 20:51 Q6HR PRN RASH Plan 64-year-old male with a history of A-fib (on Eliquis), CAD status post multiple stents, CVA, wheelchair-bound, CKD stage IIIb, Castorena's esophagus, esophageal ulcers with upper GI bleed, and chronic osteomyelitis of T11-T12 spine who presented to [facility] ED on 01/20 from [facility] for altered mental status. Patient was admitted to ICU for management of shock requiring vasopressors. #Acute encephalopathy-improving #Subdural hemorrhage L parietal convexity, cerebral falx, cerebellar tentorium LKW 01/20 0400; patient became more lethargic and unresponsive to various stimuli per Patient also has been having various falls with most recent about 24 hours prior to admission, unsure if patient suffered head trauma at that time or loss of conciousness. At baseline patient has limited vocabulary and can follow commands Initial Head CT significant for small hypodensities in left cerebral sulci, could not exclude small areas of subarachnoid hemorrhage CTA head/neck significant for 40% stenosis of the left carotid bifurcation, stenosis of P1 segment of left posterior cerebral artery, calcification of juxtasellar portions of internal carotid arteries, irregularity of M1 segment of left middle cerebral artery, and no definite large vessel occlusions MRI brain shows no acute infarct and no definite acute hemorrhage, but does note chronic subdural fluid accumulation with the largest being in the left cerebral hemisphere Repeat Head CT imaging on 01/21 showed subtle isointense acute subdural hemorrhage peripheral to the left parietal convexity, minimal subdural hemorrhage involving the cerebral falx and cerebellar tentorium - as subdural bleeds are mild can continue with medical management; no need for neurosx transfer - Can monitor bleed with repeat head CT in 48 hours as of this documentation; today 01/22 - Continue neurochecks q2 hours - hold anticoagulation at this time in setting of subdural bleed - continue treatment of underlying shock #Shock #Hypothermia #Bradycardia #Atrial fibrillation #History of Castorena's esophagus #History of esophageal ulcers with upper GI bleed #Normal anion gap metabolic acidosis #Uremia #Acute kidney injury #Electrolyte imbalance #Hypernatremia #Hyperchloremia #Anemia, normocytic #Elevated TSH #Decreased free T4 #History of Enterococcus faecalis in urine #History of chronic osteomyelitis T12-L2 #Multiple scattered scabs #Stage IV ulcer, lower back, 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 Leeanne Figueroa MD PGY-2 Attending Provider Attestation/Addendum I personally have seen and examined the patient at the bedside and agree with the residents findings, assessment and plan of care. Will continue to monitor him closely clinically and with repeat CT in 48 hours to check on his subdural and subarachnoid hemorrhage. Patient's mental status is gradually improving, close to baseline. 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
[2025-01-22] MEDS: DOXYCYCLINE INJ 100 MG in SODIUM CHLORIDE 0.9% (POP) 100 ML IV (21:53)
[2025-01-22] MEDS: ATORVASTATIN CALCIUM 20 MG TABLET 40 MG PO (21:54)
[2025-01-23] VITALS (60 sets, daily range): BP systolic 84–125; BP diastolic 47–79; PULSE 59–113; RESP 9–97; TEMP 35.1–37; O2SAT 53–100
[2025-01-23] MEDS: DEXTROSE 5%-WATER 1,000 ML 100 ML IV ×2 (02:41→12:07)
[2025-01-23 05:17] LABS: Basophils # (Auto) 0.0 Thou/mm3 (0.0-0.2); Basophils % (Auto) 0 % (0-2.5); Eosinophils # (Auto) 0.7 Thou/mm3 (0.0-0.5); Eosinophils % (Auto) 16 % (0-10); Hematocrit 23.2 % (41.0-53.0); Immature Granulocytes Auto 0.04 Thou/mm3 (0.00-0.00); Lymphocytes # (Auto) 0.6 Thou/mm3 (1.0-4.8); Lymphocytes % (Auto) 14 % (10-50); Mean Corpuscular HGB Conc 32.8 g/dl (31.0-37.0); Mean Corpuscular Hemoglobin 29.2 pg (25.0-35.0); Mean Corpuscular Volume 89 fL (80-100); Monocytes # (Auto) 0.3 Thou/mm3 (0.0-0.8); Monocytes % (Auto) 5 % (0-12); Neutrophils # (Auto) 3.0 Thou/mm3 (1.8-7.7); Neutrophils % (Auto) 64 % (37-80); Nucleated Red Blood Cell # 0.03 Thou/mm3 (0.00-0.00); Nucleated Red Blood Cell % 1 /100 WBC (0); Platelet Count 114 Thou/mm3 (140-440); RDW Standard Deviation 67.6 fL (35.1-43.9); Red Blood Count 2.60 Miln/mm3 (4.50-5.90); White Blood Count 4.6 Thou/mm3 (3.8-10.6)
[2025-01-23 05:29] LABS: Hemoglobin 7.6 g/dL (13.5-16.0)
[2025-01-23 05:32] LABS: INR 1.6 (0.9-1.3); Partial Thromboplastin Time 37.9 Seconds (22.0-36.0); Prothrombin Time 16.1 Seconds (9.0-12.2)
[2025-01-23 05:41] LABS: Alanine Aminotransferase 36 U/L (10-49); Albumin, Serum 2.4 gm/dL (3.4-4.8); Albumin/Globulin Ratio 1.3 (1.2-2.2); Alkaline Phosphatase 134 U/L (46-116); Anion Gap 14 (7-16); Aspartate Amino Transferase 63 U/L (0-34); BUN/Creatinine Ratio 17 Ratio (12-20); Bilirubin,Total 0.4 mg/dL (0.3-1.2); Blood Urea Nitrogen 50 mg/dL (9-23); Calcium 7.7 mg/dL (8.3-10.6); Calcium (Corrected) 9.0 mg/dL (8.5-10.1); Carbon Dioxide 20.5 mMol/L (20.0-31.0); Chloride 116 mMol/L (98-107); Creatinine (Component) 2.9 mg/dL (0.6-1.3); Estimated Creatinine Clearance 27.3 mL/min (>60); Globulin 1.9 gm/dL (2.3-3.5); Glucose 75 mg/dL (74-106); Magnesium 2.0 mg/dL (1.6-2.6); Osmolality,Calculated 310 (275-295); Phosphorous 4.6 mg/dL (2.4-5.1); Potassium 3.7 mMol/L (3.4-5.1); Sodium 150 mMol/L (136-145); Total Protein 4.3 gm/dL (5.7-8.2); Vancomycin,Random 19.1 mcg/mL; eGFR 24 See Note
--- NOTE | 2025-01-23 07:33 | XR_ITS ---
Examination: Duplex scan of the upper extremity, unilateral left Date and time of exam: January 23, 2025, 1305 hours INDICATIONS: Onset left arm swelling today Technique: Duplex scan of the extremity veins using B-mode/grayscale imaging and Doppler spectral analysis and color flow Attention is directed to internal echogenicity, compression and augmentation involving these veins, color flow assessment, spectral analysis Findings: Major deep venous structures in the extremity demonstrate normal course and caliber. There is no evidence of deep vein thrombosis. Normal color flow and spectral analysis Impression: Negative for DVT..
[2025-01-23] MEDS: PIPER/TAZO 3.375 GM PREMIX 3.375 GM/50 ML BAG IV (09:09)
[2025-01-23] MEDS: levETIRAcetam INJ 100 MG/ML VIAL 5ML 500 MG IVP ×2 (09:09→20:34)
[2025-01-23] MEDS: DOXYCYCLINE INJ 100 MG in SODIUM CHLORIDE 0.9% (POP) 100 ML IV ×2 (09:09→20:17)
--- NOTE | 2025-01-23 09:34 | ESPR_ITS ---
<Statement entered by Pedro Anne MD - 01/23/25 11:20> I have reviewed the note and agree with the resident's assessment & plan with exceptions as below. I have personally reviewed labs, imaging, home meds/prior records, examined the patient, formulated and discussed management plan with my attending Patient was seen and examined at bedside this morning. No acute overnight events. Patient was off Levophed around 1 AM this morning and since then his blood pressure has been stable for now. Given the patient did not grow anything in the blood cultures in the past 48 hours and urine cultures have been negative will de-escalate antibiotics from Zosyn to Keflex and continue with doxycycline for patient's chronic osteomyelitis and to continue the course until February 13, [id number]. Otherwise patient was still not clear this morning for colonoscopy therefore ordered another GoLytely. Patient will have repeat renal panel around 2 PM today to monitor for sodium and if it decreases to 145 we will likely discontinue D5W, but if it does increase will likely uptrend to D5 today. Otherwise no other complaints at this time. Mental status continues to improve and no new deficits appreciated. Patient is stable enough and will be downgraded to the medical floors. Follow-up on head CT on 01/24/2025 at 5 AM to monitor for subdural hemorrhage evolution. Pedro Anne PGY2 Disclaimer: Even though this this note was dictated by speech recognition and even though it was carefully revised there may still be minor errors in transportation refrigeration technician due to voice recognition software. Documentation for date of: 01/23/25 Subjective Subjective Interval history: Patient is a 64-year-old male with a history of afib on Eliquis, CAD s/p multiple stents, CVA, wheelchair-bound, CKD stage IIIb, Castorena's esophagus, esophageal ulcers with upper GI bleed, decubitus ulcers and chronic osteomyelitis of T11-T12 spine who presented to [facility] ED on 01/20/2025 from [facility] for altered mental status. Patient had a baseline GCS of 15 and is normally interactive with limited vocabulary, however nursing staff at the facility found him obtunded with GCS 7 around 4:00 am that morning. Stroke alert was called in the ED and CT head showed possible small hyperdensities in the left cerebral sulci and could not exclude subarachnoid hemorrhage, subsequent MRI showed chronic subdural hygromas without evidence of acute bleed. Teleneuro evaluated the patient and recommended further stroke and metabolic encephalopathy workup. Patient also presented with hypotension requiring vasopressor support despite 3L fluids, and hypothermia requiring warming measures. UA showed evidence of possible infection with positive leukocyte esterase and 42 WBCs however there were not bacteria. Goals of care discussion was held by ICU team with primary decision maker and code status was changed to DNR, then following that decided to change to Limited Code with intubation OK but no chest compressions. Patient was admitted to ICU for management of shock requiring vasopressors. 01/21/2025: Overnight, repeat head CT showed subtle isointense (confirmed not to be hyperintense) acute subdural hemorrhage peripheral to the left parietal convexity, follow-up minimal subdural hemorrhage involving the cerebral falx and cerebellar tentorium. TeleNeuro consultation was initiated at that time, and Neurologist read the CT as similar to previous CT/MRI without new acute bleed. Neurologist did recommend Neurosurgery consultation however, so transfer process was initiated and attempted. Two facilities reviewed the case and reported that bleed was too small for interventions, therefore transfer process was cancelled. Patient was given 2 amps of bicarb last night for metabolic acidosis. Patient received 1 PRBC for Hgb 6.5, there is no notable GI bleeding, however patient did receive fluid resuscitation. The patient is clinically improving this morning, able to arouse to voice, make eye contact, say his name, and say a few words in response to questioning such as just tired . He is able to follow commands. He has 3/5 strength in the upper extremities, not currently moving the lower extremities at this time. Reversal of Eliquis anticoagulation not opted for at this time as there is no new bleed and patient is clinically improving, with history of afib the risk of clot formation is high. He continues to have good urine output at this time at 20-25 ml/hr. 01/22/2025: Patient was seen and examined at bedside this morning. Overnight patient's Levophed got down titrated currently at 0.03. This morning patient was given magnesium 2 g and 1 unit of PRBC was transfused as hemoglobin did drop to 6.9. Patient does seem more alert and awake today and following commands, but still unable to provide meaningful answers to questions. Pupils equally reactive. Repeat head CT did not show any changes and stable as per radiology, will see if neurology recommends again transferring patient for neurosurgery. Blood cultures have been negative in 48 hours and still pending urine culture. Patient's chloride continues to uptrend currently at 121 and sodium 155 with worsening kidney function will uptitrate D5W to 100 cc/h and if no improvement by tomorrow a.m will likely get nephrology.. Switch vancomycin to doxycycline. Will get MRI back to evaluate for tranverse myelitis. Spoke with GI will do EGD to r/o any active bleed. Spoke with patient's who stated that he was progressing to his baseline, but that she still felt he was not to his baseline as he was more drowsy 01/23/2025: No acute events overnight. Patient had Levophed discontinued overnight. Patient seen and examined at bedside this morning, patient alert and oriented to name only, but was able to follow some simple commands and tracks with his eyes. Hypernatremia and hyperchloremia improving with repeat renal panel planned for early afternoon to reassess. EEG taken 01/22 showed diffuse slowing without epileptiform discharges. Pending colonoscopy planned for later this evening. Zosyn de-escalated to Keflex given negative cultures in 48 hours and as to reflect the patient's home antibiotics of Keflex and doxycycline that was prescribed to him during his previous hospitalization for his chronic osteomyelitis. Will continue to monitor patient off Levophed, and if stable, will plan to downgrade to floors later today. Exam Vital Signs Temp Pulse Resp BP Pulse Ox O2 Del Method O2 Flow Rate 96.2 F L 86 14 96/54 L 100 Nasal Cannula 4 01/23/25 08:03 01/23/25 09:02 01/23/25 08:45 01/23/25 09:02 01/23/25 09:02 01/23/25 08:03 01/22/25 08:03 Narrative Exam General: Alert, no acute distress. Oriented to person only. Skin: Dry, flaky, cool, intact. Diffuse and scattered scabs noted throughout the body, most prominent and numerous on bilateral upper extremities and chest. Head: Normocephalic, atraumatic. Eye: Normal conjunctiva, PERRL. Throat: Oral mucosa moist. Small amount of crusted blood noted on left oral commissure. Cardiovascular: Regular rate and irregular rhythm, no murmur, +S1/S2. Respiratory: Lungs are clear to auscultation, respirations unlabored, no crackles, no wheezing. Gastrointestinal: Soft, nontender, non-distended. No guarding or rebound tenderness. Extremities: No edema, no cyanosis, no clubbing. Hands and feet bilaterally cool to touch. Capillary refill 2-3 seconds in all extremities. Bilateral lower extremity noted to have significantly dry and flaky skin. Dried brown material in between toes bilaterally. Right heel open estimated 3.5cm x 1.5cm sore with light red/black bed, minimal to no depression. Back: Multiple scabs across upper back. Lower back ulcer estimated 5cm x 3cm x 0.5cm with light red surrounding and exposure of subcutaneous tissue, draining small amount of blood without pus expression. Bilateral pink/red ulcerations on upper buttocks. Neuro: No focal deficits observed. Moving BUE, no movement of BLE (baseline as per ). No overt cerebellar signs/incoordination. Able to follow some commands. Objective Labs 01/23/25 04:30 01/23/25 04:30 Labs: Laboratory Results - last 24 hr 01/22/25 01/22/25 01/22/25 13:07 14:47 19:11 WBC RBC Hgb 7.4 L Hct 23.1 L MCV MCH MCHC RDW Std Deviation Plt Count Neut % (Auto) Lymph % (Auto) Sevier % (Auto) Eos % (Auto) Baso % (Auto) Neut # (Auto) Lymph # (Auto) Sevier # (Auto) Eos # (Auto) Baso # (Auto) Immature Gran # (Auto) Absolute Nucleated RBC Immature Gran % Nucleated RBC % PT INR APTT VBG pH 7.44 VBG pCO2 37 D VBG pO2 71 H VBG O2 Sat (Gretel) 95 L VBG Base Excess 1 Sodium 154 H 153 H Potassium 3.7 Chloride 120 H Carbon Dioxide 19.5 L Anion Gap 14 BUN 53 H Creatinine 3.1 H Estim Creat Clear Calc 25.5 L eGFR 22 L BUN/Creatinine Ratio 17 Glucose 89 Calculated Osmolality 316 H Calcium 8.3 Corrected Calcium 9.4 Phosphorus 5.6 H Magnesium Total Bilirubin AST ALT Alkaline Phosphatase Total Protein Albumin 2.6 L Globulin Albumin/Globulin Ratio Random Vancomycin 01/23/25 04:30 WBC 4.6 RBC 2.60 L Hgb 7.6 L Hct 23.2 L MCV 89 MCH 29.2 MCHC 32.8 RDW Std Deviation 67.6 H Plt Count 114 L D Neut % (Auto) 64 Lymph % (Auto) 14 Sevier % (Auto) 5 Eos % (Auto) 16 H Baso % (Auto) 0 Neut # (Auto) 3.0 Lymph # (Auto) 0.6 L Sevier # (Auto) 0.3 Eos # (Auto) 0.7 H Baso # (Auto) 0.0 Immature Gran # (Auto) 0.04 H Absolute Nucleated RBC 0.03 H Immature Gran % 1 H Nucleated RBC % 1 H PT 16.1 H INR 1.6 H APTT 37.9 H VBG pH VBG pCO2 VBG pO2 VBG O2 Sat (Gretel) VBG Base Excess Sodium 150 H Potassium 3.7 Chloride 116 H Carbon Dioxide 20.5 Anion Gap 14 BUN 50 H Creatinine 2.9 H Estim Creat Clear Calc 27.3 L eGFR 24 L BUN/Creatinine Ratio 17 Glucose 75 Calculated Osmolality 310 H Calcium 7.7 L Corrected Calcium 9.0 Phosphorus 4.6 Magnesium 2.0 Total Bilirubin 0.4 AST 63 H ALT 36 Alkaline Phosphatase 134 H D Total Protein 4.3 L Albumin 2.4 L Globulin 1.9 L Albumin/Globulin Ratio 1.3 Random Vancomycin 19.1 ABG Interpretation ABG results: 01/20/25 01/22/25 14:54 14:47 VBG pH 7.35 7.44 VBG pCO2 27 L 37 D VBG pO2 82 H 71 H VBG Base Excess -10 L 1 Quality Measures Quality Measures VTE prophylaxis Assessment & Plan Assessment Current Active Medications: Generic Name Dose Route Start Last Admin Trade Name Freq PRN Reason Stop Dose Admin Atorvastatin Calcium 40 mg 01/20/25 21:00 01/22/25 21:54 Atorvastatin Calcium 20 Mg Tablet PO 02/19/25 20:59 40 mg HS HANNAH Administration Cephalexin HCl 500 mg 01/23/25 12:00 Cephalexin 250 Mg Capsule NG 01/30/25 11:59 QID HANNAH Norepinephrine/Dextrose 8 mg in 250 mls @ 9.568 mls/hr 01/21/25 06:09 01/22/25 23:55 Levophed In D5w 8mg/250ml IV 02/19/25 08:17 0 mcg/kg/min .Q24H PRN 0 mls/hr PER PROTOCOL Titration Protocol 0.05 MCG/KG/MIN Dextrose 1,000 mls @ 100 mls/hr 01/22/25 10:28 01/23/25 02:41 D5w IV 02/21/25 10:26 100 mls/hr .Q10H HANNAH Administration Doxycycline Hyclate 100 mg/ 100 mls @ 100 mls/hr 01/22/25 21:00 01/23/25 09:09 Sodium Chloride IV 01/29/25 20:59 100 mls/hr BID HANNAH Administration Levetiracetam 500 mg 01/21/25 09:00 01/23/25 09:09 Levetiracetam Inj 100 Mg/Ml Vial 5ml IVP 02/20/25 08:59 500 mg Q12HR HANNAH Administration Lorazepam 2 mg 01/21/25 06:06 Lorazepam 2 Mg/Ml Vial IVP 01/26/25 06:05 Q3MIN PRN SEIZURES Pantoprazole Sodium 40 mg 01/20/25 21:00 01/23/25 09:09 Pantoprazole Inj 40 Mg Vial IVP 02/19/25 20:59 40 mg BID HANNAH Administration Pharmacy Consult 1 each 01/20/25 14:18 Pharmacy Renal Dose Adjustment 1 Ea XX 02/19/25 14:17 PRN PRN CONSULT Zinc Acetate/Diphenhydramine 0 gm 01/21/25 20:52 Diphenhydramine/Zn Acet 2% Cr 30 Gm Tube TOP 02/20/25 20:51 Q6HR PRN RASH Plan 64-year-old male with a history of A-fib (on Eliquis), CAD status post multiple stents, CVA, wheelchair-bound, CKD stage IIIb, Castorena's esophagus, esophageal ulcers with upper GI bleed, and chronic osteomyelitis of T11-T12 spine who presented to [facility] ED on 01/20 from [facility] for altered mental status. Patient was admitted to ICU for management of shock requiring vasopressors. NEURO #Acute encephalopathy, resolving DDx: Metabolic derangement, CVA Dx: ? Patient's last known well was 399 on 01/20, with baseline of patient being able to follow commands and respond with very limited vocabulary, however after patient's last known well, patient became minimally responsive and increasingly somnolent ? Patient noted to have improvement with encephalopathy over course of ICU stay, is currently alert and oriented to self only Rx: ? Continue neurochecks every 2 hours ? Manage underlying shock - In house neurology consulted, appreciate recommendations #Subdural hemorrhage L parietal convexity, cerebral falx, cerebellar tentorium Dx: ? Patient noted to have recent fall about a day before admission with unclear head trauma and loss of consciousness per patient's ? CTA head/neck 01/20 significant for 40% stenosis of the left carotid bifurcation, stenosis of P1 segment of left posterior cerebral artery, calcification of juxtasellar portions of internal carotid arteries, irregularity of M1 segment of left middle cerebral artery, and no definite large vessel occlusions ? CT head #1 01/20 significant for small hypodensities in left cerebral sulci, could not exclude small areas of subarachnoid hemorrhage ? MRI brain 01/20 shows no acute infarct and no definite acute hemorrhage, but does note chronic subdural fluid accumulation with the largest being in the left cerebral hemisphere ? Follow up CT head #2 01/21 at 1:00 am showed subtle isointense acute subdural hemorrhage peripheral to the left parietal convexity, minimal subdural hemorrhage involving the cerebral falx and cerebellar tentorium Teleneuro determined this was unchanged from the prior imaging above - Follow up CT head #3 01/22/2025 at 5 am did not show changes as per radiology. ? Two facilities neurosurgery teams determined no need for acute interventions, bleed too small Rx: ? In-house neurology consulted, appreciate recommendations ? Repeat CT head planned for 01/24 at 05:00 to monitor for any progression of subdural hemorrhage CARDIO #Shock #Hypothermia #Bradycardia DDx: Septic shock, distributive shock Dx: ? Patient presented with initial blood pressure of 98/56 and remained hypotensive even with 3 L of NS in ED ? Patient presented with temperature of 90.5 ?F ? Patient initially tachycardic at 146 heart rate in the ED, however on admission heart rate was noted to be bradycardic in the 40s to 50s ? Bedside ultrasound performed in ED by ICU team after fluid resuscitation in ED showed minimally compressible IVC and hepatic vein, suggestive of adequate fluid resuscitation, with a bradycardic heart that appeared to have adequate ventricular motion ? Estimated cardiac output on 01/20 noted to be 21.5 and estimated cardiac index 9.6 using Jose Roberto formula, low suspicion for cardiogenic shock ? Hydrocortisone 100 mg x 1 given on 01/20 Rx: ? Continue vern hugger warmer ? Wean down norepinephrine ? Continue to empirically treat with antibiotics - MRI to R/O tranverse myelitis causing neurogenic shock Follow-up: ? If patient remains hypotensive with MAP below 65, then will reinvestigate IVC, hepatic vein, and heart with bedside ultrasound to determine fluid responsiveness status, and fluid bolus if fluid responsive ? If patient is not fluid responsive and remains hypotensive with MAP below 65, will consider starting additional vasopressors such as vasopressin #Atrial fibrillation Dx: ? Patient does have longstanding history of atrial fibrillation, database management specialist is Dr. Yadav in [place] ? EKG on admission notes atrial fibrillation ? Patient has been prescribed Eliquis 5 mg twice daily at home Rx: ? Will hold home Eliquis given active subdural hemorrhage and possible GI bleed PULM #No active problems GI #History of Castorena's esophagus #History of esophageal ulcers with upper GI bleed Dx: ? During recent hospitalization on 12/31 for decreased oral intake and at least one episode of hematemesis, patient was transfused with 1 unit of PRBC on 01/01 ? EGD on 01/02 showed esophageal ulcers with subcutaneous mucosal changes consistent with Castorena's esophagus, gastritis, and erythematous duodenopathy Rx: ? Continue to monitor for possible recurrence of upper GI bleed ? Protonix 40 mg twice daily - GI consulted will do EGD Follow-up: ? Post transfusion H/H NEPHRO #Normal anion gap metabolic acidosis #Uremia Dx: ? Bicarb on 01/20 16.7 => 13.1--> 19.6 ? BUN 64 on admission--->58 ? Anion gap 15 on admission ? VBG on 01/20 pH 7.35 and pCO2 27 ? Dennis formula on 01/20 estimates expected pCO2 compensation at 26-30, suggesting appropriate respiratory compensation and a pure metabolic acidosis, likely is secondary to kidney injury ? 2 amps of sodium bicarb administered on 01/20 Rx: ? Will continue to monitor with daily CMP ? D5W at 100cc/hr Follow-up: ? If repeat renal function panel continues to show metabolic acidosis, will consider additional amps of sodium bicarb - Consider Nephro consult if worsening electrolyte imbalance and kidney function #Acute kidney injury DDx: ATN, prerenal azotemia Dx: ? Creatinine in ED initially 3.3-->, elevated from baseline of 2.0 ? Patient received 3 L of NS in the ED for fluid resuscitation ? Still having good urine output Rx: ? Continue to monitor ins and outs ? Avoid nephrotoxic drugs, renally dose medications #Electrolyte imbalance #Hypernatremia #Hyperchloremia Dx: - Na 155 and chloride 121 ---> Na 150 and chloride 116 on 01/23 Rx: ? D5W at 100cc/hr Follow up: - Repeat renal panel 01/23 at 14:00, stop D5W if Na reaches goal of 145 - Consider Nephro consult if kidney function or electrolyte imbalance worsens URO #No active problems HEME #Anemia, normocytic DDx: Lower GI bleed, anemia of chronic disease Dx: ? Patient has had a history of upper GI bleed secondary to bleeding ulcers, and has required transfusion of 1 PRBC during previous hospitalization about 1 month ago ? Hemoglobin on initial presentation 7.5, decreased to 6.8, but this is likely dilutional from the 3 L of NS that the patient received while in the ED ? EGD performed 01/22 positive for esophageal ulcers and gastritis, no signs of acute bleeding observed Rx: ? Continue holding patient's home Eliquis ? Pantoprazole 40 mg twice daily ? Transfused 2 PRBC (01/20, 01/22) - GI consulted will do colonoscopy Follow-up: ? Transfuse PRBC if hemoglobin <7 ? Discuss with GI regarding resumption of Eliquis after findings from colonoscopy ENDO #Elevated TSH #Decreased free T4 DDx: Euthyroid sick syndrome, hypothyroidism Dx: ?TSH on admission 9.68 and T4 on admission 0.84 Rx: ? Resolved underlying metabolic derangement ? Patient to follow-up outpatient ? Repeat TSH and Free T4 in a few days after stabilization ID #History of Enterococcus faecalis in urine #History of chronic osteomyelitis T12-L2 Dx: ? Per chart review, patient does have a history of Enterococcus faecalis in urine and chronic osteomyelitis with previous wound cultures growing pansensitive MSSA ? MRI lumbar spine 12/15/2024 notes osteomyelitis in T12-L2, patient had previously pulled out PICC line during past hospitalizations, so was recently discharged with oral antibiotics ? WBC within normal range on admission ? Procalcitonin within normal limits at 0.29 on admission ? CRP elevated at 8.2 on 01/20 ? Blood cultures collected 01/20, negative after 48 hours ? Urine culture collected 01/20, negative - MRI back to rule out tranverse myelitis, limited study due to patient motion Rx: ? DC Vancomycin IV daily, pharmacy to dose (01/20?01/22); swap to doxycycline due to ARIA and prior prescription ? DC Piperacillin/tazobactam 3.375 g every 12 hours (01/20?01/23); swap to Keflex due to negative cultures - Resumed home antibiotic regimen prescribed for chronic osteomyelitis by ID from previous hospitalization; Doxycycline 100 mg twice daily (01/22-02/12) and Keflex (01/23-02/12) MSK #No active problems SKIN #Multiple scattered scabs DDx: Pruritus, flea bites Dx: ?Multiple diffuse and scattered scabs noted throughout the body, most numerous and prominent on bilateral upper extremities and chest Follow-up: ? 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 Lower back ulcer (on admission estimate size 5 cm x 3 cm x 0.5 cm) with exposure to subcutaneous tissue, slight bloody discharge without expression of pus noted on admission, currently does not appear infected ? Patient does have a history of a chronic stage IV ulcer in his mid back, possible source of chronic osteomyelitis during previous admissions Rx: ? Wound care referral ? Keep patient on his sides Follow-up: ? Monitor size and characteristics of wound daily, if worsening consider wound culture and referral to general surgery for debridement Feeding/fluids: NPO; D5W Analgesia: N/A Sedation: N/A Thromboprophylaxis: SCDs Head up position: 30 degrees Ulcer prophylaxis: Protonix 40 mg BID Glycemic control: AM blood glucose & bedside glucose checks Q6h Spontaneous breathing trial: N/A Bowel care: N/A Indwelling catheters: RIJ Central line Deescalation of antibiotics: Currently on Keflex & Doxy CODE STATUS: Limited code intubation OK no chest compressions Reason for ICU care: N/A; shock resolved Patient plan of care was discussed with the attending office services assistant, Dr. Arnold and senior resident Dr. Ness (PGY-2) Michel Maldonado, PGY-1 Attending Provider Attestation/Addendum pt seen and examined with resident. In brief this is a 64yo M with shock currently resolved and off vasopressors. He has chronic osteo of this vertebrae 2/2 decub ulcer and is on abx till mid Dec. Yesterday he was transfused PRBCs for a drop in his h/h and is for colonoscopy today with GI, underwent EGD already. Currently on D5W for hyperNa with some improvement in labs along with his ARIA. on arrival he was noted to have a SDH that was small without any focal deficits. outside NS was contacted and neuro was consulted in house. His repeat HCT has remained stable and his home AC for his Afib is on hold. There are reports from family that the pt has suffered a fall a day prior to arrival however it is unclear if he hit his head or not. There is no significant change in his overall physical exam today. He is off drips, remains stable and is ok for downgrade to tele case d/w ICU team labs, imaging, records reviewed ~36min required for eval, exam, review, intervention, discussion and formulation of POC for this pt
[2025-01-23] MEDS: NA SU/NAHCO3/KC/PEG (Golytely) 4,000 ML BTL 4000 ML PO (10:20)
[2025-01-23 14:04] LABS: Albumin, Serum 2.1 gm/dL (3.4-4.8); Anion Gap 13 (7-16); BUN/Creatinine Ratio 15 Ratio (12-20); Blood Urea Nitrogen 44 mg/dL (9-23); Calcium 7.6 mg/dL (8.3-10.6); Calcium (Corrected) 9.1 mg/dL (8.5-10.1); Carbon Dioxide 21.0 mMol/L (20.0-31.0); Chloride 116 mMol/L (98-107); Creatinine (Component) 2.9 mg/dL (0.6-1.3); Estimated Creatinine Clearance 27.3 mL/min (>60); Glucose 91 mg/dL (74-106); Osmolality,Calculated 309 (275-295); Phosphorous 4.2 mg/dL (2.4-5.1); Potassium 3.6 mMol/L (3.4-5.1); Sodium 150 mMol/L (136-145); eGFR 24 See Note
[2025-01-23] MEDS: DEXTROSE 5%-WATER 1,000 ML 125 ML IV ×2 (15:53→20:34)
--- NOTE | 2025-01-23 18:11 | ESPR_ITS ---
Documentation for date of: 01/23/25 Subjective Subjective Interval history: Patient evaluated hemoglobin hematocrit 7.6 and 23.2 Platelet count of 114,000 Upper endoscopy showed distal esophageal ulcerations GoLytely prep in progress Exam Vital Signs Temp Pulse Resp BP Pulse Ox O2 Del Method O2 Flow Rate 96.9 F 77 25 H 102/61 100 Room Air 4 01/23/25 16:00 01/23/25 17:30 01/23/25 17:30 01/23/25 17:30 01/23/25 17:30 01/23/25 16:00 01/22/25 08:03 Objective Labs 01/23/25 04:30 01/23/25 13:30 Labs: Laboratory Results - last 24 hr 01/22/25 01/23/25 01/23/25 19:11 04:30 13:30 WBC 4.6 RBC 2.60 L Hgb 7.6 L Hct 23.2 L MCV 89 MCH 29.2 MCHC 32.8 RDW Std Deviation 67.6 H Plt Count 114 L D Neut % (Auto) 64 Lymph % (Auto) 14 [place] % (Auto) 5 Eos % (Auto) 16 H Baso % (Auto) 0 Neut # (Auto) 3.0 Lymph # (Auto) 0.6 L [place] # (Auto) 0.3 Eos # (Auto) 0.7 H Baso # (Auto) 0.0 Immature Gran # (Auto) 0.04 H Absolute Nucleated RBC 0.03 H Immature Gran % 1 H Nucleated RBC % 1 H PT 16.1 H INR 1.6 H APTT 37.9 H Sodium 153 H 150 H 150 H Potassium 3.7 3.7 3.6 Chloride 120 H 116 H 116 H Carbon Dioxide 19.5 L 20.5 21.0 Anion Gap 14 14 13 BUN 53 H 50 H 44 H Creatinine 3.1 H 2.9 H 2.9 H Estim Creat Clear Calc 25.5 L 27.3 L 27.3 L eGFR 22 L 24 L 24 L BUN/Creatinine Ratio 17 17 15 Glucose 89 75 91 Calculated Osmolality 316 H 310 H 309 H Calcium 8.3 7.7 L 7.6 L Corrected Calcium 9.4 9.0 9.1 Phosphorus 5.6 H 4.6 4.2 Magnesium 2.0 Total Bilirubin 0.4 AST 63 H ALT 36 Alkaline Phosphatase 134 H D Total Protein 4.3 L Albumin 2.6 L 2.4 L 2.1 L Globulin 1.9 L Albumin/Globulin Ratio 1.3 Random Vancomycin 19.1 Impressions Impression: Anemia blood loss esophageal ulcers GoLytely prep for any synchronous lesion in the colon ABG Interpretation ABG results: 01/20/25 01/22/25 14:54 14:47 VBG pH 7.35 7.44 VBG pCO2 27 L 37 D VBG pO2 82 H 71 H VBG Base Excess -10 L 1 Assessment & Plan Time Spent With Patient Time: Total time spent is greater than 50% in coordination of care (as documented) at patient's floor/unit and/or counseling patient:
--- NOTE | 2025-01-23 18:16 | ESPR_ITS ---
<Statement entered by Mandi Schumacher MD - 01/29/25 15:19> I reviewed above note and agree with findings and plans. I have also personally examined the patient with medicine team and went over assessment and plan with medical team including intern retail and resident physician. <Statement entered by Elyse Centeno MD - 01/23/25 19:22> Pt is ICU downgrade, pt is hard of hearing at baseline. Pt was admitted to ICU due to AMS and hypotension requiring pressor support. Pt is off of pressors, BP is stable. Imaging is evident of stable subdural hematoma, neurology recommended repeat CT at 48Hrs which will be tomorrow at 5pm. For hypernatremia, pt is started on D5W running at 125cc/hr, goal sodium is 145, will repeat Na check at 10pm. Patient was seen and examined by me personally. I have directly supervised and reviewed documentation by the team resident and agree with its findings. ------- Plan of care was discussed with the attending, Dr. Winsome Centeno, PGY-2 Documentation for date of: 01/23/25 Subjective Subjective Interval history: patient seen and examined at bedside present no acute concerns. downgraded from ICU Exam Vital Signs Temp Pulse Resp BP Pulse Ox O2 Del Method O2 Flow Rate 96.9 F 77 25 H 102/61 100 Room Air 4 01/23/25 16:00 01/23/25 17:30 01/23/25 17:30 01/23/25 17:30 01/23/25 17:30 01/23/25 16:00 01/22/25 08:03 Narrative Exam General: Alert, no acute distress. Oriented to person only. Skin: Dry, flaky, cool, intact. Diffuse and scattered scabs noted throughout the body, most prominent and numerous on bilateral upper extremities and chest. Head: Normocephalic, atraumatic. NG tube in place in l nostril. R neck with central line in place Eye: Normal conjunctiva, PERRL. Throat: Oral mucosa moist. Cardiovascular: Regular rate and irregular rhythm, no murmur, +S1/S2. Respiratory: Lungs are clear to auscultation, respirations unlabored, no crackles, no wheezing. Gastrointestinal: Soft, nontender, non-distended. No guarding or rebound tenderness. : tenorio in place Extremities: No edema, no cyanosis, no clubbing. Hands and feet bilaterally cool to touch. Capillary refill 2-3 seconds in all extremities. Bilateral lower extremity noted to have significantly dry and flaky skin. Right heel open estimated 3.5cm x 1.5cm sore with light red/black bed, minimal to no depression. Back: Multiple scabs across upper back. Lower back ulcer estimated 5cm x 3cm x 0.5cm with light red surrounding and exposure of subcutaneous tissue, draining small amount of blood without pus expression. Bilateral pink/red ulcerations on upper buttocks. Neuro: No focal deficits observed. Moving BUE, no movement of BLE (baseline as per ). No overt cerebellar signs/incoordination. Able to follow some commands. Objective Labs 01/24/25 05:12 01/24/25 05:12 Labs: Laboratory Results - last 24 hr 01/22/25 01/23/25 01/23/25 19:11 04:30 13:30 WBC 4.6 RBC 2.60 L Hgb 7.6 L Hct 23.2 L MCV 89 MCH 29.2 MCHC 32.8 RDW Std Deviation 67.6 H Plt Count 114 L D Neut % (Auto) 64 Lymph % (Auto) 14 [place] % (Auto) 5 Eos % (Auto) 16 H Baso % (Auto) 0 Neut # (Auto) 3.0 Lymph # (Auto) 0.6 L [place] # (Auto) 0.3 Eos # (Auto) 0.7 H Baso # (Auto) 0.0 Immature Gran # (Auto) 0.04 H Absolute Nucleated RBC 0.03 H Immature Gran % 1 H Nucleated RBC % 1 H PT 16.1 H INR 1.6 H APTT 37.9 H Sodium 153 H 150 H 150 H Potassium 3.7 3.7 3.6 Chloride 120 H 116 H 116 H Carbon Dioxide 19.5 L 20.5 21.0 Anion Gap 14 14 13 BUN 53 H 50 H 44 H Creatinine 3.1 H 2.9 H 2.9 H Estim Creat Clear Calc 25.5 L 27.3 L 27.3 L eGFR 22 L 24 L 24 L BUN/Creatinine Ratio 17 17 15 Glucose 89 75 91 Calculated Osmolality 316 H 310 H 309 H Calcium 8.3 7.7 L 7.6 L Corrected Calcium 9.4 9.0 9.1 Phosphorus 5.6 H 4.6 4.2 Magnesium 2.0 Total Bilirubin 0.4 AST 63 H ALT 36 Alkaline Phosphatase 134 H D Total Protein 4.3 L Albumin 2.6 L 2.4 L 2.1 L Globulin 1.9 L Albumin/Globulin Ratio 1.3 Random Vancomycin 19.1 ABG Interpretation ABG results: 01/20/25 01/22/25 14:54 14:47 VBG pH 7.35 7.44 VBG pCO2 27 L 37 D VBG pO2 82 H 71 H VBG Base Excess -10 L 1 Quality Measures Quality Measures VTE prophylaxis Assessment & Plan Assessment Current Active Medications: Generic Name Dose Route Start Last Admin Trade Name Freq PRN Reason Stop Dose Admin Atorvastatin Calcium 40 mg 01/20/25 21:00 01/22/25 21:54 Atorvastatin Calcium 20 Mg Tablet PO 02/19/25 20:59 40 mg HS HANNAH Administration Cephalexin HCl 500 mg 01/23/25 12:00 01/23/25 17:53 Cephalexin 250 Mg Capsule NG 01/30/25 11:59 500 mg QID HANNAH Administration Doxycycline Hyclate 100 mg/ 100 mls @ 100 mls/hr 01/22/25 21:00 01/23/25 10:09 Sodium Chloride IV 01/29/25 20:59 Infused BID HANNAH Infusion Dextrose 1,000 mls @ 125 mls/hr 01/23/25 15:50 01/23/25 15:53 D5w IV 02/22/25 15:49 125 mls/hr .Q8H HANNAH Administration Levetiracetam 500 mg 01/21/25 09:00 01/23/25 09:09 Levetiracetam Inj 100 Mg/Ml Vial 5ml IVP 02/20/25 08:59 500 mg Q12HR HANNAH Administration Lorazepam 2 mg 01/21/25 06:06 Lorazepam 2 Mg/Ml Vial IVP 01/26/25 06:05 Q3MIN PRN SEIZURES Pantoprazole Sodium 40 mg 01/20/25 21:00 01/23/25 09:09 Pantoprazole Inj 40 Mg Vial IVP 02/19/25 20:59 40 mg BID HANNAH Administration Pharmacy Consult 1 each 01/20/25 14:18 Pharmacy Renal Dose Adjustment 1 Ea XX 02/19/25 14:17 PRN PRN CONSULT Zinc Acetate/Diphenhydramine 0 gm 01/21/25 20:52 Diphenhydramine/Zn Acet 2% Cr 30 Gm Tube TOP 02/20/25 20:51 Q6HR PRN RASH Plan Mr Schrader is a 64-year-old male with a history of A-fib (on Eliquis), CAD status post multiple stents, CVA, wheelchair-bound, CKD stage IIIb, Castorena's esophagus, esophageal ulcers with upper GI bleed, and chronic osteomyelitis of T11-T12 spine who presented to [facility] ED on 01/20 from SNF for altered mental status. Patient was admitted to ICU for management of shock requiring vasopressors, now stable and downgraded to floors from ICU. #Subdural hemorrhage L parietal convexity, cerebral falx, cerebellar tentorium- stable Plan Pending 01/[address] Atrial fibrillation Dx: ? 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 EKG on admission notes atrial fibrillation ? Patient has been prescribed Eliquis 5 mg twice daily at home Rx: ? Will hold home Eliquis given active subdural hemorrhage and possible GI bleed #History of Castorena's esophagus #History of esophageal ulcers with upper GI bleed Dx: ? During recent hospitalization on 12/31 for decreased oral intake and at least one episode of hematemesis, patient was transfused with 1 unit of PRBC on 01/01 ? EGD on 01/02 showed esophageal ulcers with subcutaneous mucosal changes consistent with Castorena's esophagus, gastritis, and erythematous duodenopathy Rx: ? Continue to monitor for possible recurrence of upper GI bleed ? Protonix 40 mg twice daily - GI consulted will do EGD - NG tube for colonoscopy prep #Acute kidney injury DDx: ATN, prerenal azotemia Dx: ? Creatinine in ED initially 3.3-->, elevated from baseline of 2.0 ? Patient received 3 L of NS in the ED for fluid resuscitation ? Still having good urine output Rx: ? Continue to monitor ins and outs ? Avoid nephrotoxic drugs, renally dose medications #Electrolyte imbalance #Hypernatremia #Hyperchloremia Dx: - Na 155 and chloride 121 ---> Na 150 and chloride 116 on 01/23 Rx: ? D5W at 100cc/hr Follow up: - Repeat renal panel 11/18 at 14:00, stop D5W if Na reaches goal of 145 - Consider Nephro consult if kidney function or electrolyte imbalance worsens #Anemia, normocytic DDx: Lower GI bleed, anemia of chronic disease Dx: ? Patient has had a history of upper GI bleed secondary to bleeding ulcers, and has required transfusion of 1 PRBC during previous hospitalization about 1 month ago ? Hemoglobin on initial presentation 7.5, decreased to 6.8, but this is likely dilutional from the 3 L of NS that the patient received while in the ED ? EGD performed 01/22 positive for esophageal ulcers and gastritis, no signs of acute bleeding observed Rx: ? Continue holding patient's home Eliquis ? Pantoprazole 40 mg twice daily ? Transfused 2 PRBC (01/20, 01/22) - GI consulted will do colonoscopy Follow-up: ? Transfuse PRBC if hemoglobin <7 ? Discuss with GI regarding resumption of Eliquis after findings from colonoscopy #Elevated TSH #Decreased free T4 DDx: Euthyroid sick syndrome, hypothyroidism Dx: ?TSH on admission 9.68 and T4 on admission 0.84 Rx: ? Resolved underlying metabolic derangement ? Patient to follow-up outpatient ? 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 Lower back ulcer (on admission estimate size 5 cm x 3 cm x 0.5 cm) with exposure to subcutaneous tissue, slight bloody discharge without expression of pus noted on admission, currently does not appear infected ? Patient does have a history of a chronic stage IV ulcer in his mid back, possible source of chronic osteomyelitis during previous admissions Rx: ? Wound care referral ? Keep patient on his sides Follow-up: ? Monitor size and characteristics of wound daily, if worsening consider wound culture and referral to general surgery for debridement Dispo:tele, pending repeat head ct today Diet: Clear liquid diet, advance as tolerated Bowel Reg: golytely prep per ng tube VTE ppx: holding anticoag iso gi bleed GI ppx: protonix Code status: Limited code Plan discussed with my attending Dr. Schumacher and my senior Dr. Jacobo Bright MD PGY1 Attending Provider Attestation/Addendum pt seen and examined with resident. In brief this is a 64yo M with shock currently resolved and off vasopressors. He has chronic osteo of this vertebrae 2/2 decub ulcer and is on abx till mid Dec. Yesterday he was transfused PRBCs for a drop in his h/h and is for colonoscopy today with GI, underwent EGD already. Currently on D5W for hyperNa with some improvement in labs along with his ARIA. on arrival he was noted to have a SDH that was small without any focal deficits. outside NS was contacted and neuro was consulted in house. His repeat HCT has remained stable and his home AC for his Afib is on hold. There are reports from family that the pt has suffered a fall a day prior to arrival however it is unclear if he hit his head or not. There is no significant change in his overall physical exam today. He is off drips, remains stable and is ok for downgrade to tele case d/w ICU team labs, imaging, records reviewed ~36min required for eval, exam, review, intervention, discussion and formulation of POC for this pt
--- NOTE | 2025-01-23 18:26 | ESPR_ITS ---
Documentation for date of: 01/23/25 Subjective Subjective Interval history: Patient seen today in the ICU found awake, alert more interactive although still hard of hearing. Vitals and labs reviewed has been off levophed since 1am last night. EEG consistent with metabolic encephalopathy. Will obtain repeat Head CT in the am to monitor the status of patients brain bleed. Exam Vital Signs Temp Pulse Resp BP Pulse Ox O2 Del Method O2 Flow Rate 96.9 F 77 25 H 102/61 100 Room Air 4 01/23/25 16:00 01/23/25 17:30 01/23/25 17:30 01/23/25 17:30 01/23/25 17:30 01/23/25 16:00 01/22/25 08:03 Narrative Exam Physical Exam GENERAL: NAD, non verbal, very hard of hearing, flat affect HEENT: Moist mucosa. Eyes open, symmetrical, & clear CARDIO: Heart RRR, no obvious murmurs PULM: No noted coughing/dyspnea CTA B/L, no R/W/R GI: Abdomen soft, nondistended, no pain on palpation. BSx4 NEURO: nonverbal, able to move bilateral upper extremities, Objective Labs 01/24/25 05:12 01/24/25 05:12 Labs: Laboratory Results - last 24 hr 01/22/25 01/23/25 01/23/25 19:11 04:30 13:30 WBC 4.6 RBC 2.60 L Hgb 7.6 L Hct 23.2 L MCV 89 MCH 29.2 MCHC 32.8 RDW Std Deviation 67.6 H Plt Count 114 L D Neut % (Auto) 64 Lymph % (Auto) 14 [place] % (Auto) 5 Eos % (Auto) 16 H Baso % (Auto) 0 Neut # (Auto) 3.0 Lymph # (Auto) 0.6 L [place] # (Auto) 0.3 Eos # (Auto) 0.7 H Baso # (Auto) 0.0 Immature Gran # (Auto) 0.04 H Absolute Nucleated RBC 0.03 H Immature Gran % 1 H Nucleated RBC % 1 H PT 16.1 H INR 1.6 H APTT 37.9 H Sodium 153 H 150 H 150 H Potassium 3.7 3.7 3.6 Chloride 120 H 116 H 116 H Carbon Dioxide 19.5 L 20.5 21.0 Anion Gap 14 14 13 BUN 53 H 50 H 44 H Creatinine 3.1 H 2.9 H 2.9 H Estim Creat Clear Calc 25.5 L 27.3 L 27.3 L eGFR 22 L 24 L 24 L BUN/Creatinine Ratio 17 17 15 Glucose 89 75 91 Calculated Osmolality 316 H 310 H 309 H Calcium 8.3 7.7 L 7.6 L Corrected Calcium 9.4 9.0 9.1 Phosphorus 5.6 H 4.6 4.2 Magnesium 2.0 Total Bilirubin 0.4 AST 63 H ALT 36 Alkaline Phosphatase 134 H D Total Protein 4.3 L Albumin 2.6 L 2.4 L 2.1 L Globulin 1.9 L Albumin/Globulin Ratio 1.3 Random Vancomycin 19.1 ABG Interpretation ABG results: 01/20/25 01/22/25 14:54 14:47 VBG pH 7.35 7.44 VBG pCO2 27 L 37 D VBG pO2 82 H 71 H VBG Base Excess -10 L 1 Quality Measures Quality Measures VTE prophylaxis Assessment & Plan Assessment Current Active Medications: Generic Name Dose Route Start Last Admin Trade Name Freq PRN Reason Stop Dose Admin Atorvastatin Calcium 40 mg 01/20/25 21:00 01/22/25 21:54 Atorvastatin Calcium 20 Mg Tablet PO 02/19/25 20:59 40 mg HS HANNAH Administration Cephalexin HCl 500 mg 01/23/25 12:00 01/23/25 17:53 Cephalexin 250 Mg Capsule NG 01/30/25 11:59 500 mg QID HANNAH Administration Doxycycline Hyclate 100 mg/ 100 mls @ 100 mls/hr 01/22/25 21:00 01/23/25 10:09 Sodium Chloride IV 01/29/25 20:59 Infused BID HANNAH Infusion Dextrose 1,000 mls @ 125 mls/hr 01/23/25 15:50 01/23/25 15:53 D5w IV 02/22/25 15:49 125 mls/hr .Q8H HANNAH Administration Levetiracetam 500 mg 01/21/25 09:00 01/23/25 09:09 Levetiracetam Inj 100 Mg/Ml Vial 5ml IVP 02/20/25 08:59 500 mg Q12HR HANNAH Administration Lorazepam 2 mg 01/21/25 06:06 Lorazepam 2 Mg/Ml Vial IVP 01/26/25 06:05 Q3MIN PRN SEIZURES Pantoprazole Sodium 40 mg 01/20/25 21:00 01/23/25 09:09 Pantoprazole Inj 40 Mg Vial IVP 02/19/25 20:59 40 mg BID HANNAH Administration Pharmacy Consult 1 each 01/20/25 14:18 Pharmacy Renal Dose Adjustment 1 Ea XX 02/19/25 14:17 PRN PRN CONSULT Zinc Acetate/Diphenhydramine 0 gm 01/21/25 20:52 Diphenhydramine/Zn Acet 2% Cr 30 Gm Tube TOP 02/20/25 20:51 Q6HR PRN RASH Plan 64-year-old male with a history of A-fib (on Eliquis), CAD status post multiple stents, CVA, wheelchair-bound, CKD stage IIIb, Castorena's esophagus, esophageal ulcers with upper GI bleed, and chronic osteomyelitis of T11-T12 spine who presented to [facility] ED on 01/20 from SNF for altered mental status. Patient was admitted to ICU for management of shock requiring vasopressors. #Acute encephalopathy-improving #Subdural hemorrhage L parietal convexity, cerebral falx, cerebellar tentorium LKW 01/20 0400; patient became more lethargic and unresponsive to various stimuli per Patient also has been having various falls with most recent about 24 hours prior to admission, unsure if patient suffered head trauma at that time or loss of conciousness. At baseline patient has limited vocabulary and can follow commands Initial Head CT significant for small hypodensities in left cerebral sulci, could not exclude small areas of subarachnoid hemorrhage CTA head/neck significant for 40% stenosis of the left carotid bifurcation, stenosis of P1 segment of left posterior cerebral artery, calcification of juxtasellar portions of internal carotid arteries, irregularity of M1 segment of left middle cerebral artery, and no definite large vessel occlusions MRI brain shows no acute infarct and no definite acute hemorrhage, but does note chronic subdural fluid accumulation with the largest being in the left cerebral hemisphere Repeat Head CT imaging on 01/21 showed subtle isointense acute subdural hemorrhage peripheral to the left parietal convexity, minimal subdural hemorrhage involving the cerebral falx and cerebellar tentorium - as subdural bleeds are mild can continue with medical management; no need for neurosx transfer - Can monitor bleed with repeat head CT in the am - Continue neurochecks q2 hours - hold anticoagulation at this time in setting of subdural bleed - continue treatment of underlying shock #Shock #Hypothermia #Bradycardia #Atrial fibrillation #History of Castorena's esophagus #History of esophageal ulcers with upper GI bleed #Normal anion gap metabolic acidosis #Uremia #Acute kidney injury #Electrolyte imbalance #Hypernatremia #Hyperchloremia #Anemia, normocytic #Elevated TSH #Decreased free T4 #History of Enterococcus faecalis in urine #History of chronic osteomyelitis T12-L2 #Multiple scattered scabs #Stage IV ulcer, lower back, 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 Leeanne Figueroa MD PGY-2 Attending Provider Attestation/Addendum I personally have seen and examined the patient at the bedside and agreed with resident's findings, assessment and plan of care. His mental status: Improved back to baseline. Follow-up with repeat CT tomorrow to evaluate for subdural/subarachnoid hemorrhage.
[2025-01-23 20:14] LABS: Albumin, Serum 2.1 gm/dL (3.4-4.8); Anion Gap 12 (7-16); BUN/Creatinine Ratio 14 Ratio (12-20); Blood Urea Nitrogen 38 mg/dL (9-23); Calcium 7.8 mg/dL (8.3-10.6); Calcium (Corrected) 9.3 mg/dL (8.5-10.1); Carbon Dioxide 21.2 mMol/L (20.0-31.0); Chloride 115 mMol/L (98-107); Creatinine (Component) 2.8 mg/dL (0.6-1.3); Estimated Creatinine Clearance 28.2 mL/min (>60); Glucose 81 mg/dL (74-106); Osmolality,Calculated 302 (275-295); Phosphorous 4.5 mg/dL (2.4-5.1); Potassium 3.7 mMol/L (3.4-5.1); Sodium 148 mMol/L (136-145); eGFR 25 See Note
[2025-01-23] MEDS: ATORVASTATIN CALCIUM 20 MG TABLET 40 MG PO (20:19)
[2025-01-24] VITALS (15 sets, daily range): BP systolic 75–113; BP diastolic 42–94; PULSE 64–110; RESP 11–20; TEMP 36.1–36.8; O2SAT 96–100; BMI 27.3; BMI 27.2
--- NOTE | 2025-01-24 05:00 | XR_ITS ---
Examination: CT brain head without contrast. 2-D sagittal coronal reconstructions Date and time of exam: January 24, 2025, 0539 hours, comparison January 22, 2025 INDICATIONS: History altered mental status, subdural hematomas peripheral to the cerebellar hemispheres on CT study January 22, 2025 CTDI: vol (mGy): 47.9 DLP: (mGycm): 978 Technique: Multiple CT axial sections of the brain have been obtained, 5 mm slice thickness. Contrast has not been administered. 2-D sagittal, coronal reconstructions have been obtained Low dose protocols were performed. One or more of the following dose reduction techniques were used; automated exposure control, adjustment of the mA and/or KV according to patient size, use of iterative reconstruction technique. Findings: The subdural hematomas are again noted peripheral to the cerebral hemispheres and more subacute or chronic appearing in density The do not appear to have significantly changed in size No midline shift The ventricles are not compressed The subdural hemorrhage along the cerebral falx and cerebellar tentorium regions is slightly less evident No new acute hemorrhage depicted IMPRESSION: The subdural hematomas are again noted peripheral to the cerebral hemispheres and appear more subacute or chronic in density on the current study without definite change in size The subdural hemorrhage is less evident along the cerebral falx and cerebellar tentorium No interval mass effect upon the ventricles No new areas of hemorrhage
[2025-01-24 05:32] LABS: Basophils # (Auto) 0.0 Thou/mm3 (0.0-0.2); Basophils % (Auto) 0 % (0-2.5); Eosinophils # (Auto) 0.6 Thou/mm3 (0.0-0.5); Eosinophils % (Auto) 12 % (0-10); Hematocrit 22.2 % (41.0-53.0); Immature Granulocytes Auto 0.05 Thou/mm3 (0.00-0.00); Lymphocytes # (Auto) 0.8 Thou/mm3 (1.0-4.8); Lymphocytes % (Auto) 18 % (10-50); Mean Corpuscular HGB Conc 32.9 g/dl (31.0-37.0); Mean Corpuscular Hemoglobin 29.3 pg (25.0-35.0); Mean Corpuscular Volume 89 fL (80-100); Monocytes # (Auto) 0.2 Thou/mm3 (0.0-0.8); Monocytes % (Auto) 5 % (0-12); Neutrophils # (Auto) 2.9 Thou/mm3 (1.8-7.7); Neutrophils % (Auto) 63 % (37-80); Nucleated Red Blood Cell # 0.04 Thou/mm3 (0.00-0.00); Nucleated Red Blood Cell % 1 /100 WBC (0); Platelet Count 102 Thou/mm3 (140-440); RDW Standard Deviation 64.3 fL (35.1-43.9); Red Blood Count 2.49 Miln/mm3 (4.50-5.90); White Blood Count 4.6 Thou/mm3 (3.8-10.6)
[2025-01-24 05:51] LABS: INR 1.5 (0.9-1.3); Partial Thromboplastin Time 36.9 Seconds (22.0-36.0); Prothrombin Time 15.7 Seconds (9.0-12.2)
[2025-01-24 06:07] LABS: Alanine Aminotransferase 28 U/L (10-49); Albumin, Serum 2.2 gm/dL (3.4-4.8); Albumin/Globulin Ratio 1.2 (1.2-2.2); Alkaline Phosphatase 119 U/L (46-116); Anion Gap 15 (7-16); Aspartate Amino Transferase 43 U/L (0-34); BUN/Creatinine Ratio 13 Ratio (12-20); Bilirubin,Total 0.2 mg/dL (0.3-1.2); Blood Urea Nitrogen 36 mg/dL (9-23); Calcium 7.6 mg/dL (8.3-10.6); Calcium (Corrected) 9.0 mg/dL (8.5-10.1); Carbon Dioxide 19.1 mMol/L (20.0-31.0); Chloride 114 mMol/L (98-107); Creatinine (Component) 2.8 mg/dL (0.6-1.3); Estimated Creatinine Clearance 28.2 mL/min (>60); Globulin 1.8 gm/dL (2.3-3.5); Glucose 86 mg/dL (74-106); Magnesium 1.6 mg/dL (1.6-2.6); Osmolality,Calculated 301 (275-295); Phosphorous 3.5 mg/dL (2.4-5.1); Potassium 3.6 mMol/L (3.4-5.1); Sodium 148 mMol/L (136-145); Total Protein 4.0 gm/dL (5.7-8.2); eGFR 25 See Note
[2025-01-24] MEDS: DEXTROSE 5%-WATER 1,000 ML 125 ML IV ×2 (06:08→17:03)
[2025-01-24 06:14] LABS: Hemoglobin 7.3 g/dL (13.5-16.0)
[2025-01-24] MEDS: DOXYCYCLINE INJ 100 MG in SODIUM CHLORIDE 0.9% (POP) 100 ML IV ×2 (08:24→20:53)
[2025-01-24] MEDS: levETIRAcetam INJ 100 MG/ML VIAL 5ML 500 MG IVP ×2 (08:25→20:53)
--- NOTE | 2025-01-24 10:01 | ESPR_ITS ---
<Statement entered by Mandi Schumacher MD - 01/29/25 15:21> I reviewed above note and agree with findings and plans. I have also personally examined the patient with medicine team and went over assessment and plan with medical team including undergraduate intern and resident physician. <Statement entered by Elyse Centeno MD - 01/24/25 16:29> Pt is seen at bedside, very hard of hearing. Pt does look but does not respond to questions because he doesnt have his hearing aid on. Pt is currently on GoLytely through NG tube for colonoscopy prep. Vitals and labs are stable, hemoglobin is 7.3, hematocrit 22.2. D5W is running at 125 cc/hr, repeat sodium is 146. Patient was seen and examined by me personally. I have directly supervised and reviewed documentation by the team resident and agree with its findings. ------- Plan of care was discussed with the attending, Dr. Winsome Centeno, PGY-2 Documentation for date of: 01/24/25 Subjective Subjective Interval history: * Patient seen and examined at bedside * Head CT morning of 01/24/25 showed the subdural hematomas again noted peripheral to the cerebral hemispheres and appeared more subacute or chronic in density on the current study without definite change in size. The subdural hemorrhage is less evident along the cerebral falx and cerebellar tentorium. * Venous doppler of left upper extremity was negative for DVT. * NPO. * Golytly. * Colonoscopy planned for today. * Treading sodium. Exam Vital Signs Temp Pulse Resp BP Pulse Ox O2 Del Method O2 Flow Rate 97.0 F 105 H 17 95/51 L 99 Room Air 4 01/24/25 08:00 01/24/25 08:00 01/24/25 08:00 01/24/25 08:00 01/24/25 08:00 01/24/25 08:00 01/22/25 08:03 Narrative Exam General: Alert, no acute distress. Oriented to person only. Skin: Dry, flaky, cool, intact. Diffuse and scattered scabs noted throughout the body, most prominent and numerous on bilateral upper extremities and chest. HEENT: Normocephalic, atraumatic, mucous membranes moist. Pupils reactive to light. Cardiovascular: Regular rate and irregular rhythm, no murmur, +S1/S2. Respiratory: Lungs are clear to auscultation, respirations unlabored, no crackles, no wheezing. Gastrointestinal: Soft, nontender, non-distended. No guarding or rebound tenderness. : tenorio in place Extremities: No edema, no cyanosis, no clubbing. RUE larger than left. Capillary refill 2-3 seconds in all extremities. Bilateral lower extremity noted to have significantly dry and flaky skin. Right heel open estimated 3.5cm x 1.5cm sore with light red/black bed, minimal to no depression. Back: Multiple scabs across upper back. Lower back ulcer estimated 5cm x 3cm x 0.5cm with light red surrounding and exposure of subcutaneous tissue, draining small amount of blood without pus expression. Bilateral pink/red ulcerations on upper buttocks. Neuro: No focal deficits observed. Moving BUE, no movement of BLE (baseline as per ). No overt cerebellar signs/incoordination. Able to follow some commands. Objective Labs 01/25/25 06:18 01/25/25 05:20 Labs: Laboratory Results - last 24 hr 01/23/25 01/23/25 01/24/25 13:30 19:25 05:12 WBC 4.6 RBC 2.49 L Hgb 7.3 L Hct 22.2 L MCV 89 MCH 29.3 MCHC 32.9 RDW Std Deviation 64.3 H Plt Count 102 L Neut % (Auto) 63 Lymph % (Auto) 18 [place] % (Auto) 5 Eos % (Auto) 12 H Baso % (Auto) 0 Neut # (Auto) 2.9 Lymph # (Auto) 0.8 L [place] # (Auto) 0.2 Eos # (Auto) 0.6 H Baso # (Auto) 0.0 Immature Gran # (Auto) 0.05 H Absolute Nucleated RBC 0.04 H Immature Gran % 1 H Nucleated RBC % 1 H PT 15.7 H INR 1.5 H APTT 36.9 H Sodium 150 H 148 H 148 H Potassium 3.6 3.7 3.6 Chloride 116 H 115 H 114 H Carbon Dioxide 21.0 21.2 19.1 L Anion Gap 13 12 15 BUN 44 H 38 H 36 H Creatinine 2.9 H 2.8 H 2.8 H Estim Creat Clear Calc 27.3 L 28.2 L 28.2 L eGFR 24 L 25 L 25 L BUN/Creatinine Ratio 15 14 13 Glucose 91 81 86 Calculated Osmolality 309 H 302 H 301 H Calcium 7.6 L 7.8 L 7.6 L Corrected Calcium 9.1 9.3 9.0 Phosphorus 4.2 4.5 3.5 Magnesium 1.6 Total Bilirubin 0.2 L AST 43 H ALT 28 Alkaline Phosphatase 119 H Total Protein 4.0 L Albumin 2.1 L 2.1 L 2.2 L Globulin 1.8 L Albumin/Globulin Ratio 1.2 ABG Interpretation ABG results: 01/20/25 01/22/25 14:54 14:47 VBG pH 7.35 7.44 VBG pCO2 27 L 37 D VBG pO2 82 H 71 H VBG Base Excess -10 L 1 Quality Measures Quality Measures VTE prophylaxis Assessment & Plan Assessment Current Active Medications: Generic Name Dose Route Start Last Admin Trade Name Freq PRN Reason Stop Dose Admin Atorvastatin Calcium 40 mg 01/20/25 21:00 01/23/25 20:19 Atorvastatin Calcium 20 Mg Tablet PO 02/19/25 20:59 40 mg HS HANNAH Administration Cephalexin HCl 500 mg 01/23/25 12:00 01/24/25 06:08 Cephalexin 250 Mg Capsule NG 01/30/25 11:59 500 mg QID HANNAH Administration Doxycycline Hyclate 100 mg/ 100 mls @ 100 mls/hr 01/22/25 21:00 01/24/25 08:24 Sodium Chloride IV 01/29/25 20:59 100 mls/hr BID HANNAH Administration Dextrose 1,000 mls @ 125 mls/hr 01/23/25 15:50 01/24/25 06:08 D5w IV 02/22/25 15:49 125 mls/hr .Q8H HANNAH Administration Levetiracetam 500 mg 01/21/25 09:00 01/24/25 08:25 Levetiracetam Inj 100 Mg/Ml Vial 5ml IVP 02/20/25 08:59 500 mg Q12HR HANNAH Administration Lorazepam 2 mg 01/21/25 06:06 Lorazepam 2 Mg/Ml Vial IVP 01/26/25 06:05 Q3MIN PRN SEIZURES Pantoprazole Sodium 40 mg 01/20/25 21:00 01/24/25 08:25 Pantoprazole Inj 40 Mg Vial IVP 02/19/25 20:59 40 mg BID HANNAH Administration Pharmacy Consult 1 each 01/20/25 14:18 Pharmacy Renal Dose Adjustment 1 Ea XX 02/19/25 14:17 PRN PRN CONSULT Zinc Acetate/Diphenhydramine 0 gm 01/21/25 20:52 Diphenhydramine/Zn Acet 2% Cr 30 Gm Tube TOP 02/20/25 20:51 Q6HR PRN RASH Plan Summary: Mr Schrader is a 64-year-old male with a history of A-fib (on Eliquis), CAD status post multiple stents, CVA, wheelchair-bound, CKD stage IIIb, Castorena's esophagus, esophageal ulcers with upper GI bleed, and chronic osteomyelitis of T11-T12 spine who presented to [facility] ED on 01/20 from SNF for altered mental status. Patient was admitted to ICU for management of shock requiring vasopressors, downgraded to the floors on 01/23/2025. #Subdural hemorrhage L parietal convexity, cerebral falx, cerebellar tentorium- stable * Head CT morning of 01/24/25 showed the subdural hematomas again noted peripheral to the cerebral hemispheres and appeared more subacute or chronic in density on the current study without definite change in size. The subdural hemorrhage is less evident along the cerebral falx and cerebellar tentorium. Plan * Hold anticoagulation at this time in setting of subdural bleed #Atrial fibrillation * Patient has longstanding history of atrial fibrillation, data support analyst is Dr. Yadav in [place] * EKG on admission notes atrial fibrillation * Patient has been prescribed Eliquis 5 mg twice daily at home Plan: * Will hold home Eliquis given active subdural hemorrhage and possible GI bleed #History of Castorena's esophagus #History of esophageal ulcers with upper GI bleed * During recent hospitalization on 12/31 for decreased oral intake and at least one episode of hematemesis, patient was transfused with 1 unit of PRBC on 01/01 * EGD on 01/02 showed esophageal ulcers with subcutaneous mucosal changes consistent with Castorena's esophagus, gastritis, and erythematous duodenopathy Plan: * Continue to monitor for possible recurrence of upper GI bleed * Protonix 40 mg twice daily * NG tube * GoLytely prep * GI plans for colonoscopy 01/24/2025 #Acute kidney injury * Consider ATN vs prerenal azotemia * Creatinine in ED initially 3.3-->, elevated from baseline of 2.0 * Patient received 3 L of NS in the ED for fluid resuscitation * Still having good urine output * Creatinine 2.8 and stable Plan: * Continue to monitor ins and outs * Avoid nephrotoxic drugs, renally dose medications #Electrolyte imbalance #Hypernatremia (Resolving) #Hyperchloremia * Na 155 and chloride 121 ---> Na 150 and chloride 116 on 01/23 * 01/24/2025: Sodium 148. Free water deficit calculated to be 2.94L, repeat sodiums during the day were 146 with a D5W rate of 125 mL/h. Plan: * D5W at 125cc/hr Follow up: * Daily sodium checks, expected to improve #Seizure disorder * Per patient history Plan: * Keppra 500 g IV every 12 hours * Lorazepam 2 mg IV PRN for seizures > 3 min or > 3 episodes in one hour. No more than 6-8 mg total in 24 hour period. #Anemia, normocytic * Consider lower GI bleed versus anemia of chronic disease * Patient has had a history of upper GI bleed secondary to bleeding ulcers, and has required transfusion of 1 PRBC during previous hospitalization about 1 month ago * Hemoglobin on initial presentation 7.5, decreased to 6.8, but this is likely dilutional from the 3 L of NS that the patient received while in the ED * EGD performed 01/22 positive for esophageal ulcers and gastritis, no signs of acute bleeding observed * Patient received 2 units of PRBCs this visit, 01/20, 01/22 Paln: * Continue holding patient's home Eliquis * Pantoprazole 40 mg twice daily * GI plans for colonoscopy 01/24/2025 Reassessment: * Transfuse PRBC if hemoglobin <7 * Discuss with GI regarding resumption of Eliquis after findings from colonoscopy #Elevated TSH #Decreased free T4 * Consider euthyroid sick syndrome, hypothyroidism * TSH on admission 9.68 and T4 on admission 0.84 Plan: * Resolved underlying metabolic derangement * Patient to follow-up outpatient * Repeat TSH and Free T4 in a few days after stabilization #Stage IV ulcer, lower back, 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 #Chronic osteomyelitis * Lower back ulcer (on admission estimate size 5 cm x 3 cm x 0.5 cm) with exposure to subcutaneous tissue, slight bloody discharge without expression of pus noted on admission, currently does not appear infected * Patient has a history of a chronic stage IV ulcer in his mid back, possible source of chronic osteomyelitis during previous admissions Plan: * Wound care referral * Keep patient on his sides * Doxycycline 100 mg IV twice daily Reassessment: * Monitor size and characteristics of wound daily * If worsening then consider wound culture and referral to general surgery for debridement Dispo: Tele, GI plans for colonoscopy today, sodium is correcting. Diet: Clear liquid diet, advance as tolerated Bowel Reg: Golytely prep per ng tube VTE ppx: holding anticoag iso gi bleed GI ppx: protonix Code status: Limited code Patient was seen and discussed with my attending physician Dr. Winsome GAMBOA and my senior resident Dr. Jacobo GAMBOA PGY-2. Jayson De La Vega DO PGY-1.
[2025-01-24 10:27] LABS: Sodium 146 mMol/L (136-145)
--- NOTE | 2025-01-24 12:50 | SUR.OPER ---
1215 Rectal tube removed intact, after balloon deflated. Pt carin well.
--- NOTE | 2025-01-24 12:58 | PC.SS ---
Update: Patient to obtain colonoscopy today.
--- NOTE | 2025-01-24 13:00 | PC.SS ---
ACCOUNTING ADVISORY SERVICES MANAGER confirmed with patient's spouse that discharge plan is for the patient to return to [facility] once medically cleared.
--- NOTE | 2025-01-24 13:08 | PC.SS ---
Updated clinicals submitted to [facility] via [facility].
--- NOTE | 2025-01-24 13:33 | SUR.PHASEI ---
1256: Pt received in [facility] via [facility]. Pt not responsive per reporting RN. Hx of stroke, brain bleed. Resp even, unlabored. BP low. Map 74. Other VS stable.
--- NOTE | 2025-01-24 14:37 | PC.DIETICIAN ---
Nutrition prescription: Clear Liquids. Advance as tolerated to: PUD/GERD/[place], Dys Mech Altered. Ensure Plus 240ml BID with lunch and dinner. Sher 1 pkt (flavored) BID mixed with 6-8 oz water/juice. Vitamin C 500mg BID, zinc sulfate 220 mg once daily for 14 days, multivit/minerals.
--- NOTE | 2025-01-24 14:43 | SUR.PHASEI ---
1336: Pt resting. No distress. Resp even, unlabored. VS stable. [place] continues to drain clear yellow urine. Report to Telemetry, Leana MACK. Pt transferred to Rm 264 in stable condition.
[2025-01-24 14:52] LABS: Albumin, Serum 2.4 gm/dL (3.4-4.8); Anion Gap 14 (7-16); BUN/Creatinine Ratio 13 Ratio (12-20); Blood Urea Nitrogen 34 mg/dL (9-23); Calcium 7.7 mg/dL (8.3-10.6); Calcium (Corrected) 9.0 mg/dL (8.5-10.1); Carbon Dioxide 18.9 mMol/L (20.0-31.0); Chloride 113 mMol/L (98-107); Creatinine (Component) 2.7 mg/dL (0.6-1.3); Estimated Creatinine Clearance 29.3 mL/min (>60); Glucose 65 mg/dL (74-106); Osmolality,Calculated 296 (275-295); Phosphorous 4.5 mg/dL (2.4-5.1); Potassium 3.7 mMol/L (3.4-5.1); Sodium 146 mMol/L (136-145); eGFR 26 See Note
--- NOTE | 2025-01-24 19:03 | ESPR_ITS ---
Documentation for date of: 01/24/25 Subjective Subjective Interval history: Patient seen today at the bedside found comfortably resting in bed. Vital signs and labs reviewed. Imaging reviewed shows some improvement in subdural hemorrhage. Clinically seems to be improving at this time Exam Vital Signs Temp Pulse Resp BP Pulse Ox O2 Del Method O2 Flow Rate 98.1 F 81 15 96/76 100 Room Air 3 01/24/25 16:00 01/24/25 16:00 01/24/25 16:00 01/24/25 16:00 01/24/25 16:00 01/24/25 16:00 01/24/25 12:37 Narrative Exam Physical Exam GENERAL: NAD, non verbal, very hard of hearing, flat affect HEENT: Moist mucosa. Eyes open, symmetrical, & clear CARDIO: Heart RRR, no obvious murmurs PULM: No noted coughing/dyspnea CTA B/L, no R/W/R GI: Abdomen soft, nondistended, no pain on palpation. BSx4 NEURO: nonverbal, able to move bilateral upper extremities, Objective Labs 01/24/25 05:12 01/24/25 14:05 Labs: Laboratory Results - last 24 hr 01/23/25 01/24/25 01/24/25 19:25 05:12 10:08 WBC 4.6 RBC 2.49 L Hgb 7.3 L Hct 22.2 L MCV 89 MCH 29.3 MCHC 32.9 RDW Std Deviation 64.3 H Plt Count 102 L Neut % (Auto) 63 Lymph % (Auto) 18 [place] % (Auto) 5 Eos % (Auto) 12 H Baso % (Auto) 0 Neut # (Auto) 2.9 Lymph # (Auto) 0.8 L [place] # (Auto) 0.2 Eos # (Auto) 0.6 H Baso # (Auto) 0.0 Immature Gran # (Auto) 0.05 H Absolute Nucleated RBC 0.04 H Immature Gran % 1 H Nucleated RBC % 1 H PT 15.7 H INR 1.5 H APTT 36.9 H Sodium 148 H 148 H 146 H Potassium 3.7 3.6 Chloride 115 H 114 H Carbon Dioxide 21.2 19.1 L Anion Gap 12 15 BUN 38 H 36 H Creatinine 2.8 H 2.8 H Estim Creat Clear Calc 28.2 L 28.2 L eGFR 25 L 25 L BUN/Creatinine Ratio 14 13 Glucose 81 86 Calculated Osmolality 302 H 301 H Calcium 7.8 L 7.6 L Corrected Calcium 9.3 9.0 Phosphorus 4.5 3.5 Magnesium 1.6 Total Bilirubin 0.2 L AST 43 H ALT 28 Alkaline Phosphatase 119 H Total Protein 4.0 L Albumin 2.1 L 2.2 L Globulin 1.8 L Albumin/Globulin Ratio 1.2 01/24/25 14:05 WBC RBC Hgb Hct MCV MCH MCHC RDW Std Deviation Plt Count Neut % (Auto) Lymph % (Auto) [place] % (Auto) Eos % (Auto) Baso % (Auto) Neut # (Auto) Lymph # (Auto) [place] # (Auto) Eos # (Auto) Baso # (Auto) Immature Gran # (Auto) Absolute Nucleated RBC Immature Gran % Nucleated RBC % PT INR APTT Sodium 146 H Potassium 3.7 Chloride 113 H Carbon Dioxide 18.9 L Anion Gap 14 BUN 34 H Creatinine 2.7 H Estim Creat Clear Calc 29.3 L eGFR 26 L BUN/Creatinine Ratio 13 Glucose 65 L Calculated Osmolality 296 H Calcium 7.7 L Corrected Calcium 9.0 Phosphorus 4.5 Magnesium Total Bilirubin AST ALT Alkaline Phosphatase Total Protein Albumin 2.4 L Globulin Albumin/Globulin Ratio ABG Interpretation ABG results: 01/20/25 01/22/25 14:54 14:47 VBG pH 7.35 7.44 VBG pCO2 27 L 37 D VBG pO2 82 H 71 H VBG Base Excess -10 L 1 Quality Measures Quality Measures VTE prophylaxis Assessment & Plan Assessment Current Active Medications: Generic Name Dose Route Start Last Admin Trade Name Freq PRN Reason Stop Dose Admin Atorvastatin Calcium 40 mg 01/20/25 21:00 01/23/25 20:19 Atorvastatin Calcium 20 Mg Tablet PO 02/19/25 20:59 40 mg HS HANNAH Administration Cephalexin HCl 500 mg 01/23/25 12:00 01/24/25 16:11 Cephalexin 250 Mg Capsule NG 01/30/25 11:59 500 mg QID HANNAH Administration Doxycycline Hyclate 100 mg/ 100 mls @ 100 mls/hr 01/22/25 21:00 01/24/25 08:24 Sodium Chloride IV 01/29/25 20:59 100 mls/hr BID HANNAH Administration Dextrose 1,000 mls @ 125 mls/hr 01/23/25 15:50 01/24/25 17:03 D5w IV 02/22/25 15:49 125 mls/hr .Q8H HANNAH Administration Levetiracetam 500 mg 01/21/25 09:00 01/24/25 08:25 Levetiracetam Inj 100 Mg/Ml Vial 5ml IVP 02/20/25 08:59 500 mg Q12HR HANNAH Administration Lorazepam 2 mg 01/21/25 06:06 Lorazepam 2 Mg/Ml Vial IVP 01/26/25 06:05 Q3MIN PRN SEIZURES Pantoprazole Sodium 40 mg 01/20/25 21:00 01/24/25 08:25 Pantoprazole Inj 40 Mg Vial IVP 02/19/25 20:59 40 mg BID HANNAH Administration Pharmacy Consult 1 each 01/20/25 14:18 Pharmacy Renal Dose Adjustment 1 Ea XX 02/19/25 14:17 PRN PRN CONSULT Zinc Acetate/Diphenhydramine 0 gm 01/21/25 20:52 Diphenhydramine/Zn Acet 2% Cr 30 Gm Tube TOP 02/20/25 20:51 Q6HR PRN RASH Plan 64-year-old male with a history of A-fib (on Eliquis), CAD status post multiple stents, CVA, wheelchair-bound, CKD stage IIIb, Castorena's esophagus, esophageal ulcers with upper GI bleed, and chronic osteomyelitis of T11-T12 spine who presented to [facility] ED on 01/20 from SNF for altered mental status. Patient was admitted to ICU for management of shock requiring vasopressors. #Acute encephalopathy-improving #Subdural hemorrhage L parietal convexity, cerebral falx, cerebellar tentorium LKW 01/20 0400; patient became more lethargic and unresponsive to various stimuli per Patient also has been having various falls with most recent about 24 hours prior to admission, unsure if patient suffered head trauma at that time or loss of conciousness. At baseline patient has limited vocabulary and can follow commands Initial Head CT significant for small hypodensities in left cerebral sulci, could not exclude small areas of subarachnoid hemorrhage CTA head/neck significant for 40% stenosis of the left carotid bifurcation, stenosis of P1 segment of left posterior cerebral artery, calcification of juxtasellar portions of internal carotid arteries, irregularity of M1 segment of left middle cerebral artery, and no definite large vessel occlusions MRI brain shows no acute infarct and no definite acute hemorrhage, but does note chronic subdural fluid accumulation with the largest being in the left cerebral hemisphere Repeat Head CT imaging on 01/21 showed subtle isointense acute subdural hemorrhage peripheral to the left parietal convexity, minimal subdural hemorrhage involving the cerebral falx and cerebellar tentorium Head CT 01/24 shows improvement in subdural hemorrhage - Continue neurochecks - hold anticoagulation at this time in setting of subdural bleed - continue treatment of underlying shock #Shock #Hypothermia #Bradycardia #Atrial fibrillation #History of Castorena's esophagus #History of esophageal ulcers with upper GI bleed #Normal anion gap metabolic acidosis #Uremia #Acute kidney injury #Electrolyte imbalance #Hypernatremia #Hyperchloremia #Anemia, normocytic #Elevated TSH #Decreased free T4 #History of Enterococcus faecalis in urine #History of chronic osteomyelitis T12-L2 #Multiple scattered scabs #Stage IV ulcer, lower back, 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 Leeanne Figueroa MD PGY-2
[2025-01-25] VITALS (9 sets, daily range): BP systolic 99–124; BP diastolic 56–77; PULSE 61–120; RESP 10–18; TEMP 35.9–36.3; O2SAT 99–100; BMI 27.2; BMI 25.7
[2025-01-25] MEDS: DEXTROSE 5%-WATER 1,000 ML 125 ML IV ×3 (00:20→17:33)
[2025-01-25 06:14] LABS: Alanine Aminotransferase 27 U/L (10-49); Albumin, Serum 2.2 gm/dL (3.4-4.8); Albumin/Globulin Ratio 1.2 (1.2-2.2); Alkaline Phosphatase 114 U/L (46-116); Anion Gap 14 (7-16); Aspartate Amino Transferase 39 U/L (0-34); BUN/Creatinine Ratio 12 Ratio (12-20); Bilirubin,Total 0.2 mg/dL (0.3-1.2); Blood Urea Nitrogen 32 mg/dL (9-23); Calcium 7.7 mg/dL (8.3-10.6); Calcium (Corrected) 9.1 mg/dL (8.5-10.1); Carbon Dioxide 18.1 mMol/L (20.0-31.0); Chloride 110 mMol/L (98-107); Creatinine (Component) 2.6 mg/dL (0.6-1.3); Estimated Creatinine Clearance 30.4 mL/min (>60); Globulin 1.8 gm/dL (2.3-3.5); Glucose 95 mg/dL (74-106); Magnesium 1.5 mg/dL (1.6-2.6); Osmolality,Calculated 290 (275-295); Phosphorous 4.8 mg/dL (2.4-5.1); Potassium 3.7 mMol/L (3.4-5.1); Sodium 142 mMol/L (136-145); Total Protein 4.0 gm/dL (5.7-8.2); eGFR 27 See Note
[2025-01-25 07:01] LABS: Basophils # (Auto) 0.0 Thou/mm3 (0.0-0.2); Basophils % (Auto) 0 % (0-2.5); Eosinophils # (Auto) 0.7 Thou/mm3 (0.0-0.5); Eosinophils % (Auto) 15 % (0-10); Hematocrit 22.4 % (41.0-53.0); Immature Granulocytes Auto 0.05 Thou/mm3 (0.00-0.00); Lymphocytes # (Auto) 0.8 Thou/mm3 (1.0-4.8); Lymphocytes % (Auto) 18 % (10-50); Mean Corpuscular HGB Conc 33.5 g/dl (31.0-37.0); Mean Corpuscular Hemoglobin 29.9 pg (25.0-35.0); Mean Corpuscular Volume 89 fL (80-100); Monocytes # (Auto) 0.3 Thou/mm3 (0.0-0.8); Monocytes % (Auto) 7 % (0-12); Neutrophils # (Auto) 2.5 Thou/mm3 (1.8-7.7); Neutrophils % (Auto) 59 % (37-80); Nucleated Red Blood Cell # 0.02 Thou/mm3 (0.00-0.00); Nucleated Red Blood Cell % 1 /100 WBC (0); Platelet Count 86 Thou/mm3 (140-440); RDW Standard Deviation 63.9 fL (35.1-43.9); Red Blood Count 2.51 Miln/mm3 (4.50-5.90); White Blood Count 4.2 Thou/mm3 (3.8-10.6)
[2025-01-25 07:05] LABS: Hemoglobin 7.5 g/dL (13.5-16.0)
[2025-01-25 07:10] LABS: INR 1.5 (0.9-1.3); Partial Thromboplastin Time 29.6 Seconds (22.0-36.0); Prothrombin Time 15.1 Seconds (9.0-12.2)
[2025-01-25] MEDS: POTASSIUM CHL 10 mEq IVPB 10 MEQ/100 ML BAG 100 MEQ IV ×3 (08:43→11:09)
[2025-01-25] MEDS: Magnesium Sulfate 4 GM Ivpb 4 GM/50 ML BAG IV (08:44)
[2025-01-25] MEDS: DOXYCYCLINE INJ 100 MG in SODIUM CHLORIDE 0.9% (POP) 100 ML IV ×2 (08:46→21:12)
[2025-01-25] MEDS: levETIRAcetam INJ 100 MG/ML VIAL 5ML 500 MG IVP ×2 (08:47→21:12)
--- NOTE | 2025-01-25 09:57 | ESPR_ITS ---
<Statement entered by Mandi Schumacher MD - 01/29/25 15:25> I reviewed above note and agree with findings and plans. I have also personally examined the patient with medicine team and went over assessment and plan with medical team including architect intern and resident physician. Documentation for date of: 01/25/25 Subjective Subjective Interval history: * Patient seen and examined at bedside. * Colonoscopy on 01/24/2025 showed grade 2 internal hemorrhoids, nonbleeding diverticula in the sigmoid and descending colon. * Continuing to hold anticoagulation. * Hypernatremia resolved. * Hemoglobin stable. * Started midodrine. Exam Vital Signs Temp Pulse Resp BP Pulse Ox O2 Del Method O2 Flow Rate 97.4 F 68 13 99/68 100 Room Air 3 01/25/25 08:00 01/25/25 08:00 01/25/25 08:00 01/25/25 08:00 01/25/25 08:00 01/25/25 08:00 01/24/25 12:37 Narrative Exam General: Alert, no acute distress. Oriented to person only. Skin: Dry, flaky, cool, intact. Diffuse and scattered scabs noted throughout the body, most prominent and numerous on bilateral upper extremities and chest. HEENT: Normocephalic, atraumatic, mucous membranes moist. Pupils reactive to light. Cardiovascular: Regular rate and irregular rhythm, no murmur, +S1/S2. Respiratory: Lungs are clear to auscultation, respirations unlabored, no crackles, no wheezing. Gastrointestinal: Soft, nontender, non-distended. No guarding or rebound tenderness. : tenorio in place Extremities: No edema, no cyanosis, no clubbing. LUE larger than right. Capillary refill 2-3 seconds in all extremities. Bilateral lower extremity noted to have significantly dry and flaky skin. Right heel open estimated 3.5cm x 1.5cm sore with light red/black bed, minimal to no depression. Back: Multiple scabs across upper back. Lower back ulcer estimated 5cm x 3cm x 0.5cm with light red surrounding and exposure of subcutaneous tissue. Bilateral pink/red ulcerations on upper buttocks. Neuro: No focal deficits observed. Moving BUE, no movement of BLE (baseline as per ). No overt cerebellar signs/incoordination. Able to follow some commands. One-word responses. Objective Labs 01/25/25 06:18 01/25/25 05:20 Labs: Laboratory Results - last 24 hr 01/24/25 01/24/25 01/25/25 10:08 14:05 05:20 WBC RBC Hgb Hct MCV MCH MCHC RDW Std Deviation Plt Count Neut % (Auto) Lymph % (Auto) [place] % (Auto) Eos % (Auto) Baso % (Auto) Neut # (Auto) Lymph # (Auto) [place] # (Auto) Eos # (Auto) Baso # (Auto) Immature Gran # (Auto) Absolute Nucleated RBC Immature Gran % Nucleated RBC % PT INR APTT Sodium 146 H 146 H 142 Potassium 3.7 3.7 Chloride 113 H 110 H Carbon Dioxide 18.9 L 18.1 L Anion Gap 14 14 BUN 34 H 32 H Creatinine 2.7 H 2.6 H Estim Creat Clear Calc 29.3 L 30.4 L eGFR 26 L 27 L BUN/Creatinine Ratio 13 12 Glucose 65 L 95 Calculated Osmolality 296 H 290 Calcium 7.7 L 7.7 L Corrected Calcium 9.0 9.1 Phosphorus 4.5 4.8 Magnesium 1.5 L Total Bilirubin 0.2 L AST 39 H ALT 27 Alkaline Phosphatase 114 Total Protein 4.0 L Albumin 2.4 L 2.2 L Globulin 1.8 L Albumin/Globulin Ratio 1.2 01/25/25 06:18 WBC 4.2 RBC 2.51 L Hgb 7.5 L Hct 22.4 L MCV 89 MCH 29.9 MCHC 33.5 RDW Std Deviation 63.9 H Plt Count 86 L Neut % (Auto) 59 Lymph % (Auto) 18 [place] % (Auto) 7 Eos % (Auto) 15 H Baso % (Auto) 0 Neut # (Auto) 2.5 Lymph # (Auto) 0.8 L [place] # (Auto) 0.3 Eos # (Auto) 0.7 H Baso # (Auto) 0.0 Immature Gran # (Auto) 0.05 H Absolute Nucleated RBC 0.02 H Immature Gran % 1 H Nucleated RBC % 1 H PT 15.1 H INR 1.5 H APTT 29.6 Sodium Potassium Chloride Carbon Dioxide Anion Gap BUN Creatinine Estim Creat Clear Calc eGFR BUN/Creatinine Ratio Glucose Calculated Osmolality Calcium Corrected Calcium Phosphorus Magnesium Total Bilirubin AST ALT Alkaline Phosphatase Total Protein Albumin Globulin Albumin/Globulin Ratio ABG Interpretation ABG results: 01/20/25 01/22/25 14:54 14:47 VBG pH 7.35 7.44 VBG pCO2 27 L 37 D VBG pO2 82 H 71 H VBG Base Excess -10 L 1 Quality Measures Quality Measures VTE prophylaxis Assessment & Plan Assessment Current Active Medications: Generic Name Dose Route Start Last Admin Trade Name Freq PRN Reason Stop Dose Admin Atorvastatin Calcium 40 mg 01/20/25 21:00 01/24/25 21:32 Atorvastatin Calcium 20 Mg Tablet PO 02/19/25 20:59 Not Given HS HANNAH Cephalexin HCl 500 mg 01/23/25 12:00 01/25/25 05:32 Cephalexin 250 Mg Capsule NG 01/30/25 11:59 Not Given QID HANNAH Doxycycline Hyclate 100 mg/ 100 mls @ 100 mls/hr 01/22/25 21:00 01/25/25 08:46 Sodium Chloride IV 01/29/25 20:59 100 mls/hr BID HANNAH Administration Dextrose 1,000 mls @ 125 mls/hr 01/23/25 15:50 01/25/25 08:48 D5w IV 02/22/25 15:49 125 mls/hr .Q8H HANNAH Administration Magnesium Sulfate 4 gm in 50 mls @ 12.5 mls/hr 01/25/25 07:32 01/25/25 08:44 Magnesium Sulfate Ivpb IV 01/25/25 11:31 12.5 mls/hr X1 ONE Administration Potassium Chloride 10 meq in 100 mls @ 100 mls/hr 01/25/25 07:32 01/25/25 08:43 Kcl Ivpb IV 01/25/25 10:31 100 mls/hr Q1H HANNAH Administration Levetiracetam 500 mg 01/21/25 09:00 01/25/25 08:47 Levetiracetam Inj 100 Mg/Ml Vial 5ml IVP 02/20/25 08:59 500 mg Q12HR HANNAH Administration Lorazepam 2 mg 01/21/25 06:06 Lorazepam 2 Mg/Ml Vial IVP 01/26/25 06:05 Q3MIN PRN SEIZURES Midodrine 10 mg 01/25/25 10:00 Midodrine 5 Mg Tablet PO 02/24/25 09:59 TID HANNAH Pantoprazole Sodium 40 mg 01/20/25 21:00 01/25/25 08:44 Pantoprazole Inj 40 Mg Vial IVP 02/19/25 20:59 40 mg BID HANNAH Administration Pharmacy Consult 1 each 01/20/25 14:18 Pharmacy Renal Dose Adjustment 1 Ea XX 02/19/25 14:17 PRN PRN CONSULT Zinc Acetate/Diphenhydramine 0 gm 01/21/25 20:52 Diphenhydramine/Zn Acet 2% Cr 30 Gm Tube TOP 02/20/25 20:51 Q6HR PRN RASH Plan Summary: Mr Schrader is a 64-year-old male with a history of A-fib (on Eliquis), CAD status post multiple stents, CVA, wheelchair-bound, CKD stage IIIb, Castorena's esophagus, esophageal ulcers with upper GI bleed, and chronic osteomyelitis of T11-T12 spine who presented to [facility] ED on 01/20 from SNF for altered mental status. Patient was admitted to ICU for management of shock requiring vasopressors, downgraded to the floors on 01/23/2025. #Subdural hemorrhage L parietal convexity, cerebral falx, cerebellar tentorium- stable * Head CT morning of 01/24/25 showed the subdural hematomas again noted peripheral to the cerebral hemispheres and appeared more subacute or chronic in density on the current study without definite change in size. The subdural hemorrhage is less evident along the cerebral falx and cerebellar tentorium. Plan * Hold anticoagulation at this time in setting of subdural bleed #Hypotension * Blood pressures have been soft, 70s / 50s Plan: * Midodrine 10 mg p.o. 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 in [place] * EKG on admission notes atrial fibrillation * Patient has been prescribed Eliquis 5 mg twice daily at home Plan: * Will hold home Eliquis given active subdural hemorrhage and possible GI bleed #History of Catsorena's esophagus #History of esophageal ulcers with upper GI bleed * During recent hospitalization on 12/31 for decreased oral intake and at least one episode of hematemesis, patient was transfused with 1 unit of PRBC on 01/01 * EGD on 01/02 showed esophageal ulcers with subcutaneous mucosal changes consistent with Castorena's esophagus, gastritis, and erythematous duodenopathy Plan: * Continue to monitor for possible recurrence of upper GI bleed * Protonix 40 mg twice daily * NG tube * GoLytely prep * GI plans for colonoscopy 01/24/2025 #Grade 2 internal hemorrhoids #Nonbleeding diverticula * Findings from colonoscopy on 01/24/2025 Plan: * Per GI will advance diet as tolerated #Acute kidney injury * Consider ATN vs prerenal azotemia * Creatinine in ED initially 3.3-->, elevated from baseline of 2.0 * Patient received 3 L of NS in the ED for fluid resuscitation * Still having good urine output * Creatinine 2.6 and stable Plan: * Continue to monitor ins and outs * Avoid nephrotoxic drugs, renally dose medications #Electrolyte imbalance #Hypernatremia (Resolved) #Hyperchloremia (Resolving) * Na 155 and chloride 121 ---> Na 150 and chloride 116 on 01/23 * Sodium 142, chloride 110 on 01/25/2025 Plan: * Discontinued D5W at 125cc/hr 01/25/2025 #Seizure disorder * Per patient history Plan: * Keppra 500 g IV every 12 hours * Lorazepam 2 mg IV PRN for seizures > 3 min or > 3 episodes in one hour. No more than 6-8 mg total in 24 hour period. #Anemia, normocytic * Consider lower GI bleed versus anemia of chronic disease * Patient has had a history of upper GI bleed secondary to bleeding ulcers, and has required transfusion of 1 PRBC during previous hospitalization about 1 month ago * Hemoglobin on initial presentation 7.5, decreased to 6.8, but this is likely dilutional from the 3 L of NS that the patient received while in the ED * Patient received 2 units of PRBCs this visit, 01/20, 01/22 * EGD performed 01/22 positive for esophageal ulcers and gastritis, no signs of acute bleeding observed * Colonoscopy on 01/24/2025 showed grade 2 internal hemorrhoids, nonbleeding diverticula * Hemoglobin has been stable Paln: * Continue holding patient's home Eliquis * Pantoprazole 40 mg twice daily Reassessment: * Transfuse PRBC if hemoglobin <7 * Discuss with GI regarding resumption of Eliquis after findings from colonoscopy #Elevated TSH #Decreased free T4 * Consider euthyroid sick syndrome, hypothyroidism * TSH on admission 9.68 and T4 on admission 0.84 Plan: * Resolved underlying metabolic derangement * Patient to follow-up outpatient * Repeat TSH and Free T4 in a few days after stabilization #Stage IV ulcer, lower back, 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 #Chronic osteomyelitis * Lower back ulcer (on admission estimate size 5 cm x 3 cm x 0.5 cm) with exposure to subcutaneous tissue, slight bloody discharge without expression of pus noted on admission, currently does not appear infected * Patient has a history of a chronic stage IV ulcer in his mid back, possible source of chronic osteomyelitis during previous admissions Plan: * Wound care referral * Keep patient on his sides * Doxycycline 100 mg IV twice daily Reassessment: * Monitor size and characteristics of wound daily * If worsening then consider wound culture and referral to general surgery for debridement Dispo: Tele, hypernatremia resolved, advancing diet as tolerated, continuing to hold anticoagulation, started midodrine. Diet: PUD diet, advance as tolerated Bowel Reg: Not indicated VTE ppx: Holding anticoag iso gi bleed GI ppx: Protonix 40 mg IV twice daily Code status: Limited code Patient was seen and discussed with my attending physician Dr. Winsome GAMBOA. Jayson De La Vega DO PGY-1.
[2025-01-25] MEDS: MIDODRINE 5 MG TABLET 10 MG PO ×3 (10:10→21:13)
--- NOTE | 2025-01-25 15:46 | PC.SS ---
rounding note: Patient is more stable and is being monitored. Poss d/c back to [facility] by Wednesday. SS will update facility.
--- NOTE | 2025-01-25 19:59 | ESPR_ITS ---
Documentation for date of: 01/25/25 Subjective Subjective Interval history: Patient evaluated hemoglobin hematocrit 7.5 and 22.4 Upper endoscopy showed multiple ulcers distal esophagus colonoscopy showed cecal polyp endoscopic resected diverticulosis colon otherwise negative Exam Vital Signs Temp Pulse Resp BP Pulse Ox O2 Del Method O2 Flow Rate 96.9 F 63 13 120/70 100 Room Air 3 01/25/25 16:00 01/25/25 16:00 01/25/25 16:00 01/25/25 16:00 01/25/25 16:00 01/25/25 16:00 01/24/25 12:37 Objective Labs 01/25/25 06:18 01/25/25 05:20 Labs: Laboratory Results - last 24 hr 01/25/25 01/25/25 05:20 06:18 WBC 4.2 RBC 2.51 L Hgb 7.5 L Hct 22.4 L MCV 89 MCH 29.9 MCHC 33.5 RDW Std Deviation 63.9 H Plt Count 86 L Neut % (Auto) 59 Lymph % (Auto) 18 [place] % (Auto) 7 Eos % (Auto) 15 H Baso % (Auto) 0 Neut # (Auto) 2.5 Lymph # (Auto) 0.8 L [place] # (Auto) 0.3 Eos # (Auto) 0.7 H Baso # (Auto) 0.0 Immature Gran # (Auto) 0.05 H Absolute Nucleated RBC 0.02 H Immature Gran % 1 H Nucleated RBC % 1 H PT 15.1 H INR 1.5 H APTT 29.6 Sodium 142 Potassium 3.7 Chloride 110 H Carbon Dioxide 18.1 L Anion Gap 14 BUN 32 H Creatinine 2.6 H Estim Creat Clear Calc 30.4 L eGFR 27 L BUN/Creatinine Ratio 12 Glucose 95 Calculated Osmolality 290 Calcium 7.7 L Corrected Calcium 9.1 Phosphorus 4.8 Magnesium 1.5 L Total Bilirubin 0.2 L AST 39 H ALT 27 Alkaline Phosphatase 114 Total Protein 4.0 L Albumin 2.2 L Globulin 1.8 L Albumin/Globulin Ratio 1.2 Impressions Impression: Multiple distal esophageal ulcers Cecal polyp Diverticulosis colon Internal hemorrhoids Continue current management ABG Interpretation ABG results: 01/20/25 01/22/25 14:54 14:47 VBG pH 7.35 7.44 VBG pCO2 27 L 37 D VBG pO2 82 H 71 H VBG Base Excess -10 L 1 Assessment & Plan Time Spent With Patient Time: Total time spent is greater than 50% in coordination of care (as documented) at patient's floor/unit and/or counseling patient:
--- NOTE | 2025-01-25 20:55 | PD.RESPRO ---
Documentation for date of: 01/25/25 Subjective Subjective Interval history: Patient seen today at the bedside found awake, alert, able to state his first and last name when shown a written note. Vitals and labs reviewed. Currently on midodrine for BP support. Hypernatremia resolved. Exam Vital Signs Temp Pulse Resp BP Pulse Ox O2 Del Method O2 Flow Rate 97.0 F 63 10 L 124/76 100 Room Air 3 01/25/25 20:00 01/25/25 20:00 01/25/25 20:00 01/25/25 20:00 01/25/25 20:00 01/25/25 20:00 01/24/25 12:37 Narrative Exam Physical Exam GENERAL: NAD, non verbal, very hard of hearing, flat affect, able to state first and last name HEENT: Moist mucosa. Eyes open, symmetrical, & clear CARDIO: Heart RRR, no obvious murmurs PULM: No noted coughing/dyspnea CTA B/L, no R/W/R GI: Abdomen soft, nondistended, no pain on palpation. BSx4 NEURO: nonverbal, able to move bilateral upper extremities, Objective Labs 01/25/25 06:18 01/25/25 05:20 Labs: Laboratory Results - last 24 hr 01/25/25 01/25/25 05:20 06:18 WBC 4.2 RBC 2.51 L Hgb 7.5 L Hct 22.4 L MCV 89 MCH 29.9 MCHC 33.5 RDW Std Deviation 63.9 H Plt Count 86 L Neut % (Auto) 59 Lymph % (Auto) 18 [place] % (Auto) 7 Eos % (Auto) 15 H Baso % (Auto) 0 Neut # (Auto) 2.5 Lymph # (Auto) 0.8 L [place] # (Auto) 0.3 Eos # (Auto) 0.7 H Baso # (Auto) 0.0 Immature Gran # (Auto) 0.05 H Absolute Nucleated RBC 0.02 H Immature Gran % 1 H Nucleated RBC % 1 H PT 15.1 H INR 1.5 H APTT 29.6 Sodium 142 Potassium 3.7 Chloride 110 H Carbon Dioxide 18.1 L Anion Gap 14 BUN 32 H Creatinine 2.6 H Estim Creat Clear Calc 30.4 L eGFR 27 L BUN/Creatinine Ratio 12 Glucose 95 Calculated Osmolality 290 Calcium 7.7 L Corrected Calcium 9.1 Phosphorus 4.8 Magnesium 1.5 L Total Bilirubin 0.2 L AST 39 H ALT 27 Alkaline Phosphatase 114 Total Protein 4.0 L Albumin 2.2 L Globulin 1.8 L Albumin/Globulin Ratio 1.2 ABG Interpretation ABG results: 01/20/25 01/22/25 14:54 14:47 VBG pH 7.35 7.44 VBG pCO2 27 L 37 D VBG pO2 82 H 71 H VBG Base Excess -10 L 1 Quality Measures Quality Measures VTE prophylaxis Assessment & Plan Assessment Current Active Medications: Generic Name Dose Route Start Last Admin Trade Name Freq PRN Reason Stop Dose Admin Atorvastatin Calcium 40 mg 01/20/25 21:00 01/24/25 21:32 Atorvastatin Calcium 20 Mg Tablet PO 02/19/25 20:59 Not Given HS HANNAH Cephalexin HCl 500 mg 01/25/25 12:00 01/25/25 17:33 Cephalexin 250 Mg Capsule PO 02/01/25 11:59 500 mg QID HANNAH Administration Doxycycline Hyclate 100 mg/ 100 mls @ 100 mls/hr 01/22/25 21:00 01/25/25 08:46 Sodium Chloride IV 01/29/25 20:59 100 mls/hr BID HANNAH Administration Dextrose 1,000 mls @ 125 mls/hr 01/23/25 15:50 01/25/25 17:33 D5w IV 02/22/25 15:49 125 mls/hr .Q8H HANNAH Administration Levetiracetam 500 mg 01/21/25 09:00 01/25/25 08:47 Levetiracetam Inj 100 Mg/Ml Vial 5ml IVP 02/20/25 08:59 500 mg Q12HR HANNAH Administration Lorazepam 2 mg 01/21/25 06:06 Lorazepam 2 Mg/Ml Vial IVP 01/26/25 06:05 Q3MIN PRN SEIZURES Midodrine 10 mg 01/25/25 10:00 01/25/25 13:40 Midodrine 5 Mg Tablet PO 02/24/25 09:59 10 mg TID HANNAH Administration Pantoprazole Sodium 40 mg 01/20/25 21:00 01/25/25 08:44 Pantoprazole Inj 40 Mg Vial IVP 02/19/25 20:59 40 mg BID HANNAH Administration Pharmacy Consult 1 each 01/20/25 14:18 Pharmacy Renal Dose Adjustment 1 Ea XX 02/19/25 14:17 PRN PRN CONSULT Zinc Acetate/Diphenhydramine 0 gm 01/21/25 20:52 Diphenhydramine/Zn Acet 2% Cr 30 Gm Tube TOP 02/20/25 20:51 Q6HR PRN RASH Plan 64-year-old male with a history of A-fib (on Eliquis), CAD status post multiple stents, CVA, wheelchair-bound, CKD stage IIIb, Castorena's esophagus, esophageal ulcers with upper GI bleed, and chronic osteomyelitis of T11-T12 spine who presented to [facility] ED on 01/20 from SNF for altered mental status. Patient was admitted to ICU for management of shock requiring vasopressors. #Acute encephalopathy-improving #Subdural hemorrhage L parietal convexity, cerebral falx, cerebellar tentorium LKW 01/20 0400; patient became more lethargic and unresponsive to various stimuli per Patient also has been having various falls with most recent about 24 hours prior to admission, unsure if patient suffered head trauma at that time or loss of conciousness. At baseline patient has limited vocabulary and can follow commands Initial Head CT significant for small hypodensities in left cerebral sulci, could not exclude small areas of subarachnoid hemorrhage CTA head/neck significant for 40% stenosis of the left carotid bifurcation, stenosis of P1 segment of left posterior cerebral artery, calcification of juxtasellar portions of internal carotid arteries, irregularity of M1 segment of left middle cerebral artery, and no definite large vessel occlusions MRI brain shows no acute infarct and no definite acute hemorrhage, but does note chronic subdural fluid accumulation with the largest being in the left cerebral hemisphere Repeat Head CT imaging on 01/21 showed subtle isointense acute subdural hemorrhage peripheral to the left parietal convexity, minimal subdural hemorrhage involving the cerebral falx and cerebellar tentorium Head CT 01/24 shows improvement in subdural hemorrhage - Continue neurochecks - hold anticoagulation at this time in setting of subdural bleed #Shock #Hypothermia #Bradycardia #Atrial fibrillation #History of Castorena's esophagus #History of esophageal ulcers with upper GI bleed #Normal anion gap metabolic acidosis #Uremia #Acute kidney injury #Electrolyte imbalance #Hypernatremia #Hyperchloremia #Anemia, normocytic #Elevated TSH #Decreased free T4 #History of Enterococcus faecalis in urine #History of chronic osteomyelitis T12-L2 #Multiple scattered scabs #Stage IV ulcer, lower back, 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 Leeanne Figueroa MD PGY-2
[2025-01-25] MEDS: ATORVASTATIN CALCIUM 20 MG TABLET 40 MG PO (21:13)
[2025-01-26] VITALS (14 sets, daily range): BP systolic 106–150; BP diastolic 56–73; PULSE 59–89; RESP 14–16; TEMP 35.2–36.8; O2SAT 95–100; BMI 25.7
[2025-01-26] MEDS: DEXTROSE 5%-WATER 1,000 ML 125 ML IV (01:42)
[2025-01-26] MEDS: MIDODRINE 5 MG TABLET 10 MG PO ×2 (05:30→13:05)
[2025-01-26 06:16] LABS: Basophils # (Auto) 0.0 Thou/mm3 (0.0-0.2); Basophils % (Auto) 0 % (0-2.5); Eosinophils # (Auto) 0.8 Thou/mm3 (0.0-0.5); Eosinophils % (Auto) 19 % (0-10); Hematocrit 25.4 % (41.0-53.0); Immature Granulocytes Auto 0.05 Thou/mm3 (0.00-0.00); Lymphocytes # (Auto) 0.7 Thou/mm3 (1.0-4.8); Lymphocytes % (Auto) 18 % (10-50); Mean Corpuscular HGB Conc 31.5 g/dl (31.0-37.0); Mean Corpuscular Hemoglobin 28.5 pg (25.0-35.0); Mean Corpuscular Volume 90 fL (80-100); Monocytes # (Auto) 0.2 Thou/mm3 (0.0-0.8); Monocytes % (Auto) 5 % (0-12); Neutrophils # (Auto) 2.4 Thou/mm3 (1.8-7.7); Neutrophils % (Auto) 57 % (37-80); Nucleated Red Blood Cell # 0.03 Thou/mm3 (0.00-0.00); Nucleated Red Blood Cell % 1 /100 WBC (0); Platelet Count 98 Thou/mm3 (140-440); RDW Standard Deviation 62.5 fL (35.1-43.9); Red Blood Count 2.81 Miln/mm3 (4.50-5.90); White Blood Count 4.1 Thou/mm3 (3.8-10.6)
[2025-01-26 06:19] LABS: Hemoglobin 8.0 g/dL (13.5-16.0)
[2025-01-26 06:23] LABS: INR 1.3 (0.9-1.3); Partial Thromboplastin Time 30.5 Seconds (22.0-36.0); Prothrombin Time 14.0 Seconds (9.0-12.2)
[2025-01-26 06:50] LABS: Alanine Aminotransferase 27 U/L (10-49); Albumin, Serum 2.2 gm/dL (3.4-4.8); Albumin/Globulin Ratio 1.1 (1.2-2.2); Alkaline Phosphatase 142 U/L (46-116); Anion Gap 12 (7-16); Aspartate Amino Transferase 34 U/L (0-34); BUN/Creatinine Ratio 10 Ratio (12-20); Bilirubin,Total 0.3 mg/dL (0.3-1.2); Blood Urea Nitrogen 24 mg/dL (9-23); Calcium 8.0 mg/dL (8.3-10.6); Calcium (Corrected) 9.4 mg/dL (8.5-10.1); Carbon Dioxide 16.4 mMol/L (20.0-31.0); Chloride 108 mMol/L (98-107); Creatinine (Component) 2.4 mg/dL (0.6-1.3); Estimated Creatinine Clearance 33.0 mL/min (>60); Free T4 (Free Thyroxine) 1.05 ng/dL (0.89-1.76); Globulin 2.0 gm/dL (2.3-3.5); Glucose 93 mg/dL (74-106); Magnesium 2.0 mg/dL (1.6-2.6); Osmolality,Calculated 275 (275-295); Phosphorous 5.1 mg/dL (2.4-5.1); Potassium 4.4 mMol/L (3.4-5.1); Sodium 136 mMol/L (136-145); Thyroid Stimulating Hormone 12.22 uIU/mL (0.55-4.78); Total Protein 4.2 gm/dL (5.7-8.2); eGFR 30 See Note
[2025-01-26] MEDS: DOXYCYCLINE INJ 100 MG in SODIUM CHLORIDE 0.9% (POP) 100 ML IV ×2 (08:50→20:20)
[2025-01-26] MEDS: levETIRAcetam INJ 100 MG/ML VIAL 5ML 500 MG IVP ×2 (08:53→20:19)
--- NOTE | 2025-01-26 14:07 | ESPR_ITS ---
<Statement entered by Mandi Schumacher MD - 02/06/25 08:31> I reviewed above note and agree with findings and plans. I have also personally examined the patient with medicine team and went over assessment and plan with medical team including exercise science internship and resident physician. Documentation for date of: 01/26/25 Subjective Subjective Interval history: * Patient seen and examined at bedside. * TSH remains elevated. Free T4 normal. * Hemoglobin 8.0 and stable. Exam Vital Signs Temp Pulse Resp BP Pulse Ox O2 Del Method O2 Flow Rate 98.3 F 88 16 108/58 L 95 Room Air 3 01/26/25 12:00 01/26/25 13:05 01/26/25 12:00 01/26/25 13:05 01/26/25 12:00 01/26/25 12:00 01/26/25 04:00 Narrative Exam General: Alert, no acute distress. Oriented to person only. Skin: Dry, flaky, cool, intact. Diffuse and scattered scabs noted throughout the body, most prominent and numerous on bilateral upper extremities and chest. HEENT: Normocephalic, atraumatic, mucous membranes moist. Pupils reactive to light. Cardiovascular: Regular rate and irregular rhythm, no murmur, +S1/S2. Respiratory: Lungs are clear to auscultation, respirations unlabored, no crackles, no wheezing. Gastrointestinal: Soft, nontender, non-distended. No guarding or rebound tenderness. : tenorio in place Extremities: No edema, no cyanosis, no clubbing. LUE larger than right. Capillary refill 2-3 seconds in all extremities. Bilateral lower extremity noted to have significantly dry and flaky skin. Right heel open estimated 3.5cm x 1.5cm sore with light red/black bed, minimal to no depression. Back: Multiple scabs across upper back. Lower back ulcer estimated 5cm x 3cm x 0.5cm with light red surrounding and exposure of subcutaneous tissue. Bilateral pink/red ulcerations on upper buttocks. Neuro: Moving BUE, no movement of BLE (baseline as per ). No overt cerebellar signs/incoordination. Not following commands. One-word responses. Objective Labs 01/26/25 05:37 01/26/25 05:37 Labs: Laboratory Results - last 24 hr 01/26/25 05:37 WBC 4.1 RBC 2.81 L Hgb 8.0 L Hct 25.4 L MCV 90 MCH 28.5 MCHC 31.5 RDW Std Deviation 62.5 H Plt Count 98 L Neut % (Auto) 57 Lymph % (Auto) 18 [place] % (Auto) 5 Eos % (Auto) 19 H Baso % (Auto) 0 Neut # (Auto) 2.4 Lymph # (Auto) 0.7 L [place] # (Auto) 0.2 Eos # (Auto) 0.8 H Baso # (Auto) 0.0 Immature Gran # (Auto) 0.05 H Absolute Nucleated RBC 0.03 H Immature Gran % 1 H Nucleated RBC % 1 H PT 14.0 H INR 1.3 APTT 30.5 Sodium 136 Potassium 4.4 D Chloride 108 H Carbon Dioxide 16.4 L Anion Gap 12 BUN 24 H Creatinine 2.4 H Estim Creat Clear Calc 33.0 L eGFR 30 L BUN/Creatinine Ratio 10 L Glucose 93 Calculated Osmolality 275 Calcium 8.0 L Corrected Calcium 9.4 Phosphorus 5.1 Magnesium 2.0 Total Bilirubin 0.3 AST 34 ALT 27 Alkaline Phosphatase 142 H D Total Protein 4.2 L Albumin 2.2 L Globulin 2.0 L Albumin/Globulin Ratio 1.1 L TSH 12.22 H D Free T4 1.05 ABG Interpretation ABG results: 01/20/25 01/22/25 14:54 14:47 VBG pH 7.35 7.44 VBG pCO2 27 L 37 D VBG pO2 82 H 71 H VBG Base Excess -10 L 1 Quality Measures Quality Measures VTE prophylaxis Assessment & Plan Assessment Current Active Medications: Generic Name Dose Route Start Last Admin Trade Name Joel PRN Reason Stop Dose Admin Atorvastatin Calcium 40 mg 01/20/25 21:00 01/25/25 21:13 Atorvastatin Calcium 20 Mg Tablet PO 02/19/25 20:59 40 mg HS HANNAH Administration Cephalexin HCl 500 mg 01/25/25 12:00 01/26/25 13:05 Cephalexin 250 Mg Capsule PO 02/01/25 11:59 500 mg QID HANNAH Administration Doxycycline Hyclate 100 mg/ 100 mls @ 100 mls/hr 01/22/25 21:00 01/26/25 08:50 Sodium Chloride IV 01/29/25 20:59 100 mls/hr BID HANNAH Administration Dextrose 1,000 mls @ 125 mls/hr 01/23/25 15:50 01/26/25 01:42 D5w IV 02/22/25 15:49 125 mls/hr .Q8H HANNAH Administration Levetiracetam 500 mg 01/21/25 09:00 01/26/25 08:53 Levetiracetam Inj 100 Mg/Ml Vial 5ml IVP 02/20/25 08:59 500 mg Q12HR HANNAH Administration Midodrine 10 mg 01/25/25 10:00 01/26/25 13:05 Midodrine 5 Mg Tablet PO 02/24/25 09:59 10 mg TID HANNAH Administration Pantoprazole Sodium 40 mg 01/20/25 21:00 01/26/25 08:53 Pantoprazole Inj 40 Mg Vial IVP 02/19/25 20:59 40 mg BID HANNAH Administration Pharmacy Consult 1 each 01/20/25 14:18 Pharmacy Renal Dose Adjustment 1 Ea XX 02/19/25 14:17 PRN PRN CONSULT Zinc Acetate/Diphenhydramine 0 gm 01/21/25 20:52 Diphenhydramine/Zn Acet 2% Cr 30 Gm Tube TOP 02/20/25 20:51 Q6HR PRN RASH Plan Summary: Mr Schrader is a 64-year-old male with a history of A-fib (on Eliquis), CAD status post multiple stents, CVA, wheelchair-bound, CKD stage IIIb, Castorena's esophagus, esophageal ulcers with upper GI bleed, and chronic osteomyelitis of T11-T12 spine who presented to [facility] ED on 01/20 from SNF for altered mental status. Patient was admitted to ICU for management of shock requiring vasopressors, downgraded to the floors on 01/23/2025. #Subdural hemorrhage L parietal convexity, cerebral falx, cerebellar tentorium- stable * Head CT morning of 01/24/25 showed the subdural hematomas again noted peripheral to the cerebral hemispheres and appeared more subacute or chronic in density on the current study without definite change in size. The subdural hemorrhage is less evident along the cerebral falx and cerebellar tentorium. Plan * Hold anticoagulation at this time in setting of subdural bleed #Hypotension * Blood pressures had been soft, 70s / 50s * Improved after starting midodrine Plan: * Continue midodrine 10 mg p.o. 3 times daily #Atrial fibrillation * Patient has longstanding history of atrial fibrillation, contact lens blocker and cutter is Dr. Yadav in [place] * EKG on admission notes atrial fibrillation * Patient has been prescribed Eliquis 5 mg twice daily at home Plan: * Will hold home Eliquis given active subdural hemorrhage and possible GI bleed #History of Castorena's esophagus #History of esophageal ulcers with upper GI bleed * During recent hospitalization on 12/31 for decreased oral intake and at least one episode of hematemesis, patient was transfused with 1 unit of PRBC on 01/01 * EGD on 01/02 showed esophageal ulcers with subcutaneous mucosal changes consistent with Castorena's esophagus, gastritis, and erythematous duodenopathy Plan: * Protonix 40 mg twice daily #Grade 2 internal hemorrhoids #Nonbleeding diverticula * Findings from colonoscopy on 01/24/2025 Plan: * Per GI will advance diet as tolerated #Acute kidney injury * Consider ATN vs prerenal azotemia * Creatinine in ED initially 3.3-->, elevated from baseline of 2.0 * Patient received 3 L of NS in the ED for fluid resuscitation * Still having good urine output * Creatinine 2.4 and stable Plan: * Continue to monitor ins and outs * Avoid nephrotoxic drugs, renally dose medications #Electrolyte imbalance #Hypernatremia (Resolved) #Hyperchloremia (Resolving) * Na 155 and chloride 121 ---> Na 150 and chloride 116 on 01/23 * Sodium 136, chloride 108 on 01/25/2025 Plan: * Discontinued D5W at 125cc/hr 01/25/2025 #Seizure disorder * Per patient history Plan: * Keppra 500 g IV every 12 hours * Lorazepam 2 mg IV PRN for seizures > 3 min or > 3 episodes in one hour. No more than 6-8 mg total in 24 hour period. #Anemia, normocytic * Consider lower GI bleed versus anemia of chronic disease * Patient has had a history of upper GI bleed secondary to bleeding ulcers, and has required transfusion of 1 PRBC during previous hospitalization about 1 month ago * Hemoglobin on initial presentation 7.5, decreased to 6.8, but this is likely dilutional from the 3 L of NS that the patient received while in the ED * Patient received 2 units of PRBCs this visit, 01/20, 01/22 * EGD performed 01/22 positive for esophageal ulcers and gastritis, no signs of acute bleeding observed * Colonoscopy on 01/24/2025 showed grade 2 internal hemorrhoids, nonbleeding diverticula * Hemoglobin has been stable Paln: * Continue holding patient's home Eliquis * Pantoprazole 40 mg twice daily Reassessment: * Transfuse PRBC if hemoglobin <7 * Discuss with GI regarding resumption of Eliquis after findings from colonoscopy #Elevated TSH #Decreased free T4 (Resolved) * Consider euthyroid sick syndrome, hypothyroidism * TSH on admission 9.68 and T4 on admission 0.84 * TSH 12.22, free T41.05 On 01/26/2025 Plan: * Patient to follow-up outpatient #Stage IV ulcer, lower back, 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 #Chronic osteomyelitis * Lower back ulcer (on admission estimate size 5 cm x 3 cm x 0.5 cm) with exposure to subcutaneous tissue, slight bloody discharge without expression of pus noted on admission, currently does not appear infected * Patient has a history of a chronic stage IV ulcer in his mid back, possible source of chronic osteomyelitis during previous admissions Plan: * Wound care referral * Keep patient on his sides * Doxycycline 100 mg IV twice daily * Cephalexin 500 mg 4 times daily Reassessment: * Monitor size and characteristics of wound daily * If worsening then consider wound culture and referral to general surgery for debridement Dispo: Tele, advancing diet as tolerated, continuing to hold anticoagulation, continue midodrine. Diet: PUD diet, advance as tolerated Bowel Reg: Not indicated VTE ppx: Holding anticoag GI ppx: Protonix 40 mg IV twice daily Code status: Limited code Patient was seen and discussed with my attending physician Dr. Winsome GAMBOA. Jayson De La Vega DO PGY-1.
--- NOTE | 2025-01-26 18:07 | ESPR_ITS ---
Documentation for date of: 01/26/25 Subjective Subjective Interval history: Hemoglobin hematocrit 8.0 25.4 Exam Vital Signs Temp Pulse Resp BP Pulse Ox O2 Del Method O2 Flow Rate 96.9 F 79 16 116/58 L 95 Room Air 3 01/26/25 15:53 01/26/25 16:00 01/26/25 15:53 01/26/25 15:53 01/26/25 15:53 01/26/25 15:53 01/26/25 04:00 Objective Labs 01/26/25 05:37 01/26/25 05:37 Labs: Laboratory Results - last 24 hr 01/26/25 05:37 WBC 4.1 RBC 2.81 L Hgb 8.0 L Hct 25.4 L MCV 90 MCH 28.5 MCHC 31.5 RDW Std Deviation 62.5 H Plt Count 98 L Neut % (Auto) 57 Lymph % (Auto) 18 [place] % (Auto) 5 Eos % (Auto) 19 H Baso % (Auto) 0 Neut # (Auto) 2.4 Lymph # (Auto) 0.7 L [place] # (Auto) 0.2 Eos # (Auto) 0.8 H Baso # (Auto) 0.0 Immature Gran # (Auto) 0.05 H Absolute Nucleated RBC 0.03 H Immature Gran % 1 H Nucleated RBC % 1 H PT 14.0 H INR 1.3 APTT 30.5 Sodium 136 Potassium 4.4 D Chloride 108 H Carbon Dioxide 16.4 L Anion Gap 12 BUN 24 H Creatinine 2.4 H Estim Creat Clear Calc 33.0 L eGFR 30 L BUN/Creatinine Ratio 10 L Glucose 93 Calculated Osmolality 275 Calcium 8.0 L Corrected Calcium 9.4 Phosphorus 5.1 Magnesium 2.0 Total Bilirubin 0.3 AST 34 ALT 27 Alkaline Phosphatase 142 H D Total Protein 4.2 L Albumin 2.2 L Globulin 2.0 L Albumin/Globulin Ratio 1.1 L TSH 12.22 H D Free T4 1.05 Impressions Impression: Distal esophageal ulcers Anemia blood loss Continue current management ABG Interpretation ABG results: 01/20/25 01/22/25 14:54 14:47 VBG pH 7.35 7.44 VBG pCO2 27 L 37 D VBG pO2 82 H 71 H VBG Base Excess -10 L 1 Assessment & Plan Time Spent With Patient Time: Total time spent is greater than 50% in coordination of care (as documented) at patient's floor/unit and/or counseling patient:
[2025-01-26] MEDS: ATORVASTATIN CALCIUM 20 MG TABLET 40 MG PO (20:19)
--- NOTE | 2025-01-26 23:34 | VVPN_ITS ---
Telemedicine visit statement This visit was conducted with the use of phone was obtained on 01/26/25 at 2334. Documentation for date of: 01/26/25 Subjective Subjective Interval history: Patient is in telemetry. His mental status has improved and he is able to communicate better. He is trying to move his both upper and lower extremities but still weak Virtual exam Vital Signs Temp Pulse Resp BP Pulse Ox O2 Del Method O2 Flow Rate 97.2 F 74 14 150/63 H 98 Room Air 3 01/26/25 19:46 01/26/25 22:28 01/26/25 19:46 01/26/25 22:28 01/26/25 19:46 01/26/25 19:46 01/26/25 04:00 Objective Labs 01/26/25 05:37 01/26/25 05:37 Labs: Laboratory Results - last 24 hr 01/26/25 05:37 WBC 4.1 RBC 2.81 L Hgb 8.0 L Hct 25.4 L MCV 90 MCH 28.5 MCHC 31.5 RDW Std Deviation 62.5 H Plt Count 98 L Neut % (Auto) 57 Lymph % (Auto) 18 [place] % (Auto) 5 Eos % (Auto) 19 H Baso % (Auto) 0 Neut # (Auto) 2.4 Lymph # (Auto) 0.7 L [place] # (Auto) 0.2 Eos # (Auto) 0.8 H Baso # (Auto) 0.0 Immature Gran # (Auto) 0.05 H Absolute Nucleated RBC 0.03 H Immature Gran % 1 H Nucleated RBC % 1 H PT 14.0 H INR 1.3 APTT 30.5 Sodium 136 Potassium 4.4 D Chloride 108 H Carbon Dioxide 16.4 L Anion Gap 12 BUN 24 H Creatinine 2.4 H Estim Creat Clear Calc 33.0 L eGFR 30 L BUN/Creatinine Ratio 10 L Glucose 93 Calculated Osmolality 275 Calcium 8.0 L Corrected Calcium 9.4 Phosphorus 5.1 Magnesium 2.0 Total Bilirubin 0.3 AST 34 ALT 27 Alkaline Phosphatase 142 H D Total Protein 4.2 L Albumin 2.2 L Globulin 2.0 L Albumin/Globulin Ratio 1.1 L TSH 12.22 H D Free T4 1.05 ABG Interpretation ABG results: 01/20/25 01/22/25 14:54 14:47 VBG pH 7.35 7.44 VBG pCO2 27 L 37 D VBG pO2 82 H 71 H VBG Base Excess -10 L 1
[2025-01-27] VITALS (7 sets, daily range): BP systolic 105–144; BP diastolic 57–84; PULSE 71–99; RESP 11–18; TEMP 36.3–36.6; O2SAT 95–100
[2025-01-27] MEDS: MIDODRINE 5 MG TABLET 10 MG PO (05:17)
[2025-01-27 06:13] LABS: Basophils # (Auto) 0.0 Thou/mm3 (0.0-0.2); Basophils % (Auto) 0 % (0-2.5); Eosinophils # (Auto) 0.6 Thou/mm3 (0.0-0.5); Eosinophils % (Auto) 15 % (0-10); Hematocrit 24.1 % (41.0-53.0); Hemoglobin 7.8 g/dL (13.5-16.0); Immature Granulocytes Auto 0.10 Thou/mm3 (0.00-0.00); Lymphocytes # (Auto) 0.7 Thou/mm3 (1.0-4.8); Lymphocytes % (Auto) 18 % (10-50); Mean Corpuscular HGB Conc 32.4 g/dl (31.0-37.0); Mean Corpuscular Hemoglobin 29.0 pg (25.0-35.0); Mean Corpuscular Volume 90 fL (80-100); Monocytes # (Auto) 0.3 Thou/mm3 (0.0-0.8); Monocytes % (Auto) 8 % (0-12); Neutrophils # (Auto) 2.4 Thou/mm3 (1.8-7.7); Neutrophils % (Auto) 57 % (37-80); Nucleated Red Blood Cell # 0.03 Thou/mm3 (0.00-0.00); Nucleated Red Blood Cell % 1 /100 WBC (0); Platelet Count 114 Thou/mm3 (140-440); RDW Standard Deviation 61.1 fL (35.1-43.9); Red Blood Count 2.69 Miln/mm3 (4.50-5.90); White Blood Count 4.2 Thou/mm3 (3.8-10.6)
[2025-01-27 06:20] LABS: INR 1.3 (0.9-1.3); Partial Thromboplastin Time 30.9 Seconds (22.0-36.0); Prothrombin Time 13.8 Seconds (9.0-12.2)
[2025-01-27 06:40] LABS: Alanine Aminotransferase 26 U/L (10-49); Albumin, Serum 2.3 gm/dL (3.4-4.8); Albumin/Globulin Ratio 1.0 (1.2-2.2); Alkaline Phosphatase 190 U/L (46-116); Anion Gap 13 (7-16); Aspartate Amino Transferase 29 U/L (0-34); BUN/Creatinine Ratio 14 Ratio (12-20); Bilirubin,Total 0.4 mg/dL (0.3-1.2); Blood Urea Nitrogen 34 mg/dL (9-23); Calcium 8.1 mg/dL (8.3-10.6); Calcium (Corrected) 9.5 mg/dL (8.5-10.1); Carbon Dioxide 16.8 mMol/L (20.0-31.0); Chloride 111 mMol/L (98-107); Creatinine (Component) 2.5 mg/dL (0.6-1.3); Estimated Creatinine Clearance 31.6 mL/min (>60); Globulin 2.2 gm/dL (2.3-3.5); Glucose 72 mg/dL (74-106); Magnesium 2.0 mg/dL (1.6-2.6); Osmolality,Calculated 287 (275-295); Phosphorous 5.2 mg/dL (2.4-5.1); Potassium 4.2 mMol/L (3.4-5.1); Sodium 141 mMol/L (136-145); Total Protein 4.5 gm/dL (5.7-8.2); eGFR 28 See Note
[2025-01-27] MEDS: DOXYCYCLINE INJ 100 MG in SODIUM CHLORIDE 0.9% (POP) 100 ML IV (09:03)
[2025-01-27] MEDS: levETIRAcetam INJ 100 MG/ML VIAL 5ML 500 MG IVP (09:04)
--- NOTE | 2025-01-27 12:22 | PC.SS ---
Addendum entered by Lurdes Yeager 01/27/25 13:38: SS follow up note; SS set up transportation for 1430. SS updated [place] from [facility], patient's nurse, Alexandra. SS attempted to contact patient's , hope x2 times however SS was not able to leave VM. SS attempted to contact patient's mother, however no answer and unable to leave VM. Addendum entered by Lurdes Yeager 01/27/25 12:44: SS contacted [place] from [facility] and she informed SS if patient is not discharging with IV ABX they are able to discharge today. SS updated Dr. Arnold. SS attempted x2 times. However they informed SS that they are bot able to locate patient. SS will have transfer nurse sign TOBI[employer] form. SS will set up transportation with [place] [facility] directly. Original Note: SS follow up note; SS was contacted by patient's nurse informing SS that patient had discharge orders, however patient is on restraints and needs to be off them for 24hr . SS notified Dr. Arnold.
[2025-01-27] MEDS: SODIUM BICARBONATE 650 MG TABLET PO (12:31)
--- NOTE | 2025-01-27 12:52 | ESDS_ITS ---
<Statement entered by Mandi Schumacher MD - 02/06/25 08:32> I reviewed above note and agree with findings and plans. I have also personally examined the patient with medicine team and went over assessment and plan with medical team including medical intern and resident physician. Planned Discharge Date 01/27/25 DS: Providers Provider Date of admission: 01/20/25 14:05 Primary care physician: Christine Kay MD Admitting Provider: Shayna Allen MD Attending Provider on Admission: Mandi Schumacher MD Consults: 01/20/25 06:46 Consult to Neurology / Tele-Neurology Routine Comment: Consulting Provider: [facility] 01/20/25 17:22 Referral Wound Care Routine Comment: 01/20/25 18:09 [facility] Referral - Knowledge Deficit Routine Comment: Positive screening for knowledge deficit needs. [facility] Referral - Nutrition Routine Comment: Positive screening for nutrition needs. [facility] Referral - Transportation Routine Comment: Positive screening for transportation needs. [facility] Referral - Utilities Routine Comment: Positive screening for utility assistance needs. 01/21/25 04:34 Consult to Neurology / Tele-Neurology Routine Comment: Consulting Provider: [facility] 01/21/25 16:53 Referral Speech Therapy Routine Comment: 01/22/25 08:26 Consult to Neurology / Tele-Neurology Routine Comment: Consulting Provider: Jon Fallon 01/22/25 11:38 Consult to Gastroenterology Routine Comment: Consulting Provider: Nadia Claros Attending Provider on DC: Mandi Schumacher MD Discharging Provider: Jayson De La Vega DO DS: Diagnosis Discharge Diagnosis (1) Open back wound: Status: Acute (2) UTI (urinary tract infection): Status: Acute (3) Sepsis: Status: Acute Problem List Completed Was Problem List Reviewed/Reconciled?: Yes Hospital Course Hospital Course Hospital course: Hospital Course: Patient is a 64-year-old male with history of atrial fibrillation on Eliquis, CAD with multiple stents on Plavix, history of upper GI bleed, hypertension, end-stage renal disease 3, CVA with resulting encephalopathy, hyperlipidemia, chronic osteomyelitis thoracic spine with wound, wheelchair-bound and history of CVA who was [facility] with chief complaint of altered mental status to the ED on 01/20/2025. Patient's GCS is usually 15 and when staff went into his room the morning of presentation the patient was very much altered. Patient was awake and alert but nonconversant. Patient was last seen normal at 7 PM. He is not able to contribute to the history. Patient was found to have small hyperdensities left cerebral sulci which may have been artifactual, small areas of subarachnoid hemorrhage not excluded. Teleneuro decided at the time that they would recommend to consult neurosurgery and get a brain MRI to rule out subarachnoid hemorrhage. MRI was taken and did not show any acute infarct or definite hemorrhage. The patient did have dried blood around his mouth. The patient was upgraded to the ICU requiring pressor support. He received 2 units of blood, 1 on 01/20/2025 and 1 on 01/22/2025. The patient underwent serial head CTs which eventually showed a less evident subdural hemorrhage along the cerebral falx and cerebellar tentorium. The subdural hematomas noted in the peripheral and cerebral hemispheres appeared more subacute or chronic in density. Patient underwent an endoscopy on 01/22/2025 which showed esophageal ulcers, gastritis. Patient underwent a colonoscopy on 01/24/2025 that showed internal hemorrhoids, mild diverticulosis in the sigmoid and descending colon, and congested mucosa in the descending colon consistent with ischemic colitis. The patient was hypotensive after the procedure and received half a liter of normal saline. Patient developed swelling in the left upper extremity. A venous Doppler was negative for DVT. The patient's hemoglobin stabilized. The patient began to develop hypotension during his hospital stay, he was treated with midodrine. He was started on Protonix for his esophageal ulcers and his diet was advanced as tolerated. The patient did have an ARIA during his hospital visit, his creatinine resolved to its baseline. The patient also had hyponatremia during his visit which was managed with D5W drip. For the patient's seizure disorder he was continued on Keppra during his hospital stay. Neurology followed the patient throughout the hospital stay. They continued to recommend holding anticoagulation in the setting of the patient's subdural bleed. The patient has a history of A-fib, therefore the decision to hold anticoagulation was made given the risks and benefits with the possibility of subdural hemorrhage reoccurrence or worsening bleeding. Patient will be discharged on doxycycline and renally dosed Keflex until 02/12/2025 per ID consultation from the patient's previous hospital visit for chronic osteomyelitis. Pt's home isosorbide mononitrate, metoprolol and losartan are held due to Pt's low blood pressure require pressor support in ICU and midodrine. Pt is to continue to hold it until being seen by electrical intern and PCP before resuming. The patient will also be discharged with a tenorio in place. He will undergo bladder training at his facility before removing tenorio. Pt does not require restrains. Problem List: #Subdural hemorrhage L parietal convexity, cerebral falx, cerebellar tentorium- stable #Hypotension #Atrial fibrillation #History of Castorena's esophagus #History of esophageal ulcers with upper GI bleed #Grade 2 internal hemorrhoids #Nonbleeding diverticula #Acute kidney injury #Electrolyte imbalance #Hypernatremia (Resolved) #Hyperchloremia (Resolving) #Seizure disorder #Anemia, normocytic #Elevated TSH #Decreased free T4 (Resolved) #Stage IV ulcer, lower back, T11-T12 #Chronic osteomyelitis Discharge Instructions: -Follow up with PCP within 1 week of discharge, if you do not have a primary care physician you can come see us at the [facility] by calling [phone] -You have been prescribed antibiotics for chronic osteomyelitis through February 12, please complete the course -Patient does not need restrains -Your blood thinner, Eliquis is discontinued due to your subdural bleed. -Continue rest of medications as previously prescribed -Return to the ED or call EMS if symptoms return and/or worsen The patient was seen and discussed with my attending physician Dr. Winsome GAMBOA and my senior resident Dr. Jacobo GAMBOA PGY-2. Jayson De La Vega DO PGY-1 Time Spent with Patient Time attestation: Total time spent providing and/or coordinating discharge services: More than 50% Time spent: Greater than 30 minutes Exam Vital Signs Temp Pulse Resp BP Pulse Ox O2 Del Method O2 Flow Rate 97.9 F 89 16 116/62 95 Room Air 3 01/27/25 11:52 01/27/25 11:52 01/27/25 11:52 01/27/25 11:52 01/27/25 11:52 01/27/25 11:52 01/26/25 04:00 Narrative Exam General: Alert, no acute distress. Oriented to person only. Skin: Dry, flaky, cool, intact. Diffuse and scattered scabs noted throughout the body, most prominent and numerous on bilateral upper extremities and chest. HEENT: Normocephalic, atraumatic, mucous membranes moist. Pupils reactive to light. Cardiovascular: Regular rate and irregular rhythm, no murmur, +S1/S2. Respiratory: Lungs are clear to auscultation, respirations unlabored, no crackles, no wheezing. Gastrointestinal: Soft, nontender, non-distended. No guarding or rebound tenderness. : tenorio in place Extremities: No edema, no cyanosis, no clubbing. LUE larger than right. Capillary refill 2-3 seconds in all extremities. Bilateral lower extremity noted to have significantly dry and flaky skin. Right heel open estimated 3.5cm x 1.5cm sore with light red/black bed, minimal to no depression. Back: Multiple scabs across upper back. Lower back ulcer estimated 5cm x 3cm x 0.5cm with light red surrounding and exposure of subcutaneous tissue. Bilateral pink/red ulcerations on upper buttocks. Neuro: Moving BUE, no movement of BLE (baseline as per ). No overt cerebellar signs/incoordination. Not following commands. One-word responses. Discharge Plan Plan Patient Disposition: Xfer Skilled Nsg Fac (SNF) Patient condition on transfer: Stable Care Plan Goals: -Follow up with PCP within 1 week of discharge, if you do not have a primary care physician you can come see us at the [facility] by calling [phone] -You have been prescribed antibiotics for chronic osteomyelitis through February 12, please complete the course -Patient does not need restrains -Your blood thinner, Eliquis is discontinued due to your subdural bleed. -Continue rest of medications as previously prescribed -Return to the ED or call EMS if symptoms return and/or worsen Prescriptions/Referrals Prescriptions/Med Rec: New midodrine 5 mg Tablet 10 mg PO TID 30 Days Qty: 180 0RF Continued Fleet Enema 19-7 gram/118 mL enema 118 ml GA QDAY PRN (Reason: constipation) Rx Instructions: if MOM and dulcolax Supp are ineffective and no bowel movement in 8hours, if no results from MOM, Dulcolax Suppository and enema CALL MD maldonado [Dulcolax (bisacodyl)] 10 mg suppository 10 mg GA QDAY PRN (Reason: constipation) Rx Instructions: if MOM is ineffective and no BM for 8hours hydroxyzine HCl 25 mg tablet 25 mg PO BID multivitamin with folic acid [Daily-Lissette (with folic acid)] 400 mcg tablet 1 tab PO QDAY ascorbic acid (vitamin C) [C-500] 500 mg tablet 500 mg PO BID zinc sulfate [Zinc-220] 50 mg zinc (220 mg) capsule 50 mg PO QDAY Rx Instructions: for 21 days doxycycline hyclate 100 mg Tablet 100 mg PO BID 56 Days Qty: 112 0RF Rx Instructions: To complete regimen on 02/12/2025 - eight week course pantoprazole 40 mg Tablet,Delayed Release (Dr/Ec) 40 mg PO BID Qty: 30 0RF acetaminophen 325 mg tablet 650 mg PO Q4H PRN (Reason: pain (scale score 1-3) and fever) Rx Instructions: for elevated Temperature NTE 3grams in 24hours atorvastatin 40 mg tablet 40 mg PO HS Changed cephalexin 500 mg capsule 500 mg PO Q8HR 16 Days Qty: 0 0RF Rx Instructions: until 02/12/2025 2359 Held losartan 25 mg Tablet 25 mg PO QDAY 30 Days Qty: 30 0RF Hold Instructions: Resume on 02/14/25. Follow up with [facility] before resuming metoprolol tartrate 100 mg tablet 100 mg PO BID Hold Instructions: Resume on 02/14/25. Follow up with [facility] before resuming Rx Instructions: hold if SBP<100 or HR<60 isosorbide mononitrate 30 mg Tablet Extended Release 24 Hr 60 mg PO QDAY Hold Instructions: Resume on 02/14/25. Follow up with [facility] before r esuming sodium citrate-citric acid 500-334 mg/5 mL Solution 30 ml PO BID Qty: 300 0RF Hold Instructions: Resume on 02/14/25. Follow up with with your PCP before resuming Discontinued Eliquis 5 mg tablet 5 mg PO BID Qty: 30 0RF Referrals: Christine Kay MD [Primary Care Provider] Patient/Caregiver Discharge Instructions Print Language: Chinese Stand Alone Forms: Caterina Award Info., Patient Portal Info Letter Discharge Order Discharge Orders: Discharge (Routine); Ordered 01/27/25 Ordered By: Elyse Centeno Quality Discharge Quality Measures none
--- NOTE | 2025-01-27 15:17 | PD.IMPROG ---
Documentation for date of: 01/27/25 Subjective Subjective Interval history: Late entry for the note Hemoglobin hematocrit 7.8 and 24.1 Okay to discharge patient to be followed by the PCP Exam Vital Signs Temp Pulse Resp BP Pulse Ox O2 Del Method O2 Flow Rate 97.9 F 87 16 116/62 95 Room Air 3 01/27/25 11:52 01/27/25 12:00 01/27/25 11:52 01/27/25 11:52 01/27/25 11:52 01/27/25 11:52 01/26/25 04:00 Objective Labs 01/27/25 04:53 01/27/25 04:53 Labs: Laboratory Results - last 24 hr 01/27/25 04:53 WBC 4.2 RBC 2.69 L Hgb 7.8 L Hct 24.1 L MCV 90 MCH 29.0 MCHC 32.4 RDW Std Deviation 61.1 H Plt Count 114 L Neut % (Auto) 57 Lymph % (Auto) 18 [place] % (Auto) 8 Eos % (Auto) 15 H Baso % (Auto) 0 Neut # (Auto) 2.4 Lymph # (Auto) 0.7 L [place] # (Auto) 0.3 Eos # (Auto) 0.6 H Baso # (Auto) 0.0 Immature Gran # (Auto) 0.10 H Absolute Nucleated RBC 0.03 H Immature Gran % 2 H Nucleated RBC % 1 H PT 13.8 H INR 1.3 APTT 30.9 Sodium 141 Potassium 4.2 Chloride 111 H Carbon Dioxide 16.8 L Anion Gap 13 BUN 34 H Creatinine 2.5 H Estim Creat Clear Calc 31.6 L eGFR 28 L BUN/Creatinine Ratio 14 Glucose 72 L Calculated Osmolality 287 Calcium 8.1 L Corrected Calcium 9.5 Phosphorus 5.2 H Magnesium 2.0 Total Bilirubin 0.4 AST 29 ALT 26 Alkaline Phosphatase 190 H D Total Protein 4.5 L Albumin 2.3 L Globulin 2.2 L Albumin/Globulin Ratio 1.0 L Impressions Impression: # Distal esophageal ulceration # Gastritis Okay to discharge to be followed by the PCP ABG Interpretation ABG results: 01/20/25 01/22/25 14:54 14:47 VBG pH 7.35 7.44 VBG pCO2 27 L 37 D VBG pO2 82 H 71 H VBG Base Excess -10 L 1 Assessment & Plan Time Spent With Patient Time: Total time spent is greater than 50% in coordination of care (as documented) at patient's floor/unit and/or counseling patient:
== END 2025-01-27 14:29 | disposition skilled nursing facility (03) | DRG 871 ==
LOC: SERX 14:07 → SERHOLD 15:33 → S2SX 01-22 06:47 → SERHOLD 01-23 09:48 → S2SX 01-23 09:48 → S2NX 01-24 03:54 → S3SX 01-26 02:37
PROVIDERS: Emergency Medicine; Specialist; Student in an Organized Health Care Education/Training Program; Admitting Provider Internal Medicine; Emergency Provider Family Medicine; PCP Hospitalist; Visit Provider Internal Medicine
PROC: (CPT 43239; principal; 2025-01-22 15:00)
PROC: 0DJD8ZZ Inspection of Lower Intestinal Tract, Via Natural or Artificial Opening Endoscopic (ICD-10-PCS; CPT 45378; principal; 2025-01-24 15:30)
DX: A41.9 Sepsis, unspecified organism (principal); G93.41 Metabolic encephalopathy; R65.21 Severe sepsis with septic shock; I62.01 Nontraumatic acute subdural hemorrhage; N18.6 End stage renal disease; M46.24 Osteomyelitis of vertebra, thoracic region; G96.08 Other cranial cerebrospinal fluid leak; N17.9 Acute kidney failure, unspecified; E87.1 Hypo-osmolality and hyponatremia; E87.0 Hyperosmolality and hypernatremia; G82.20 Paraplegia, unspecified; I12.0 Hypertensive chronic kidney disease with stage 5 chronic kidney disease or end stage renal disease; N39.0 Urinary tract infection, site not specified; E87.20 Acidosis, unspecified; K55.9 Vascular disorder of intestine, unspecified; J98.11 Atelectasis; R47.01 Aphasia; Z79.01 Long term (current) use of anticoagulants; I48.91 Unspecified atrial fibrillation; E87.8 Other disorders of electrolyte and fluid balance, not elsewhere classified; D50.0 Iron deficiency anemia secondary to blood loss (chronic); E78.5 Hyperlipidemia, unspecified; I95.81 Postprocedural hypotension; G40.909 Epilepsy, unspecified, not intractable, without status epilepticus; K64.1 Second degree hemorrhoids; K57.30 Diverticulosis of large intestine without perforation or abscess without bleeding; K63.5 Polyp of colon; L98.429 Non-pressure chronic ulcer of back with unspecified severity; D63.1 Anemia in chronic kidney disease; I25.10 Atherosclerotic heart disease of native coronary artery without angina pectoris; K22.70 Barrett's esophagus without dysplasia; K29.70 Gastritis, unspecified, without bleeding; Z66 Do not resuscitate; Z74.01 Bed confinement status; Z78.1 Physical restraint status; R94.6 Abnormal results of thyroid function studies; Z79.899 Other long term (current) drug therapy; Z86.73 Personal history of transient ischemic attack (TIA), and cerebral infarction without residual deficits; Z95.5 Presence of coronary angioplasty implant and graft; Z99.3 Dependence on wheelchair; W19.XXXA Unspecified fall, initial encounter
CPT/HCPCS: 36415; 70450; 70496; 70498; 70551; 71045; 72146; 80048; 80053; 80069; 80202; 80307; 80320; 81001; 82803; 83605; 83615; 83690; 83735; 83880; 84100; 84145; 84295; 84439; 84443; 84484; 85014; 85018; 85025; 85610; 85730; 86140; 86850; 86900; 86901; 86923; 87040; 87081; 87086; 87635; 92526; 92610; 93005; 93225; 93971; 95816; 96365; 96366; 96375; 99285; A4649; J0168; J0696; J1200; J1720; J1953; J2250; J2470; J2543; J3010; J3373; J3475; J3480; J3490; J7030; J7070; P9016; Q9967; A9270; G0480

== ENCOUNTER 2025-02-02 10:33 | Inpatient (IN) | payer MEDICARE, MEDICAID, SELFPAY ==
[2025-02-02] VITALS (84 sets, daily range): BP systolic 48–134; BP diastolic 2–91; PULSE 55–163; RESP 13–100; TEMP 29.9–33.5; O2SAT 73–100; BMI 29.8
--- NOTE | 2025-02-02 10:35 | PC.NURSE ---
Pt.'s here bedside.
--- NOTE | 2025-02-02 10:35 | PC.NURSE ---
Pt.'s states that pt. eats food and was talking 2 days ago, pt.'s states pt. had a previous stroke in 2023, pt.'s states that pt. stopped walking in 2019 because he was taken off all pain meds in the end of 2018, states that left side facial droop was just recent.
[2025-02-02] MEDS: DEXTROSE 50%-WATER INJ 50 ML SYRINGE IVP ×2 (10:45→19:25)
--- NOTE | 2025-02-02 11:01 | EKG_ITS ---
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
--- NOTE | 2025-02-02 11:01 | XR_ITS ---
EXAMINATION: AP chest single view TECHNIQUE: AP portable semiupright chest single view Date and time: February 02, 2025, 1131 hours, comparison January 22, 2025 INDICATIONS: Altered mental status today. FINDINGS: The film is rotated LPO Pneumonia left base retrocardiac Mild prominence left ventricle Ectatic thoracic aorta IMPRESSION: Pneumonia left base, consider aspiration pneumonia
--- NOTE | 2025-02-02 11:28 | PD.EDAMS ---
Altered Mental Status RME/HPI General Chief Complaint: Altered Mental Status Stated Complaint: AMS Time Seen by Provider: 02/02/25 11:00 Arrival date/time: 02/02/25 10:33 Limitations: no limitations RME / HPI RME / HPI narrative: 64 year old male with history of CVA with residual encerphalopathy, atrial fibrillation (previously on Eliquis, stopped ~ 2 weeks ago per ), CAD with multiple stents, hypertension, hyperlipidemia, history of upper GI bleed, chronic osteomyelitis thoracic spine with wound, wheelchair-bound presents to the ED BIBA from [facility] for altered mental status today. Per medics, [facility] staff reported lethargy and change in mental status beginning 2 days ago. Medics state on scene, BG was 54 and given Glucagon. Repeat BG 55. Per [facility] staff, patient was also noted to be hypotensive and febrile at 102F. later arrived and provided additional history. States the patient at baseline is wheelchair bound since 2019 and conversive. Last spoke with the patient three days ago. However, states in the 2 days the patient is nonverbal. Additionally reports last night while visiting the patient, his body had tensed up and appeared to be silent screaming lasting a few minutes. No history of similar episodes. additionally reports right arm swelling beginning yesterday. States the patient is currently at a [facility] to receive [facility] for a wound and [facility] staff had reported to her the swelling may be due to a possible allergic reaction. Related Data Home Medications ?Medication ?Instructions ?Recorded ?Confirmed isosorbide mononitrate 30 mg 60 mg PO QDAY 10/20/23 01/20/25 tablet,extended release 24 hr Held on 01/27/25. Instructions: Resume on 02/14/25. Follow up with Meal [facility]er before resuming acetaminophen 325 mg tablet 650 mg PO Q4H PRN pain (scale 01/01/25 01/20/25 score 1-3) and fever atorvastatin 40 mg tablet 40 mg PO HS HDL 01/01/25 01/20/25 ascorbic acid (vitamin C) 500 mg 500 mg PO BID supplement 01/20/25 01/20/25 tablet (C-500) bisacodyl 10 mg rectal suppository 10 mg IA QDAY PRN constipation 01/20/25 01/20/25 (Dulcolax (bisacodyl)) hydroxyzine HCl 25 mg tablet 25 mg PO BID Itching 01/20/25 01/20/25 metoprolol tartrate 100 mg tablet 100 mg PO BID HTN 01/20/25 01/20/25 Held on 01/27/25. Instructions: Resume on 02/14/25. Follow up with Meal Cooker before resuming multivitamin with folic acid 400 1 tab PO QDAY supplement 01/20/25 01/20/25 mcg tablet (Daily-Lissette (with folic acid)) sodium phosphates 19 gram-7 118 ml IA QDAY PRN constipation 01/20/25 01/20/25 gram/118 mL enema (Fleet Enema) zinc sulfate 50 mg zinc (220 mg) 50 mg PO QDAY supplement 01/20/25 01/20/25 capsule (Zinc-220) Previous Rx's ?Medication ?Instructions ?Recorded doxycycline hyclate 100 mg tablet 100 mg PO BID 8 weeks #112 tabs 12/18/24 pantoprazole 40 mg tablet,delayed 40 mg PO BID GERD #30 tabs 12/19/24 release sodium citrate-citric acid 500 30 ml PO BID #300 mL 01/05/25 mg-334 mg/5 mL oral solution Held on 01/27/25. Instructions: Resume on 02/14/25. Follow up with with your PCP before resuming cephalexin 500 mg capsule 500 mg PO Q8HR osteomyelitis 16 01/27/25 days #0 caps midodrine 5 mg tablet 10 mg (2 x 5 mg) PO TID 30 days 01/27/25 #180 tabs Allergies Allergy/AdvReac Type Severity Reaction Status Date / Time bee pollen Allergy Severe Anaphylaxis Verified 02/02/25 11:16 Sulfa (Sulfonamide Allergy Intermediate Swelling Verified 02/02/25 11:16 Antibiotics) of Lip/Tongue/Throat ampicillin Allergy Unknown Hives Verified 02/02/25 11:16 hydrocodone AdvReac Unknown Nausea Verified 02/02/25 11:16 COLLAGEN Allergy Intermediate Rash Uncoded 02/02/25 11:16 Review of Systems Review of Systems Systems Reviewed: All systems reviewed, normal except as documented Past Medical History Past Medical History NEUROLOGIC: Positive Neurological Disorders and Cerebrovascular Accident (2023) CARDIAC: Positive Cardiac Disorders, Myocardial Infarction, Atrial Fibrillation, Coronary Artery Disease, Hypercholesterolemia and Hypertension GASTROINTESTINAL: Positive Gastrointestinal Disorders, Gall Bladder Disease, Gastrointestinal Bleed, Ulcer, Gastroesophageal Reflux Disease and Obesity MUSCULOSKELETAL: Positive Musculoskeletal Disorders, Bone Cancer, Scoliosis and Osteomyelitis ENT: Positive Deafness ([place]) HEMATOLOGIC: Positive Blood Disorders and Anemia PSYCHO/SOCIAL: Positive Depression OTHER HISTORY: Positive Hospitalization, Falls, Blood Transfusions, Chemotherapy, Radiation Therapy and Cancer Family History FAMILY HISTORY: Positive Family Cardiac Disorders and Family Surgery Surgical History SURGICAL: Positive Cardiac Surgery, Coronary Stent, Angiogram, Endocrine Surgery, Tonsillectomy, Abdominal Surgery, Joint Replacement (right 3d digit tip amputated) and Amputation Social History SMOKING STATUS: Former smoker SECOND HAND EXPOSURE: No SUBSTANCE USE: does not use ED Exam General Limitations: Present no limitations General appearance: Present other (Altered, lethargic, skin is mottled, hypothermic ) Head Head exam: Present atraumatic and normocephalic Eye Eye exam: Present normal appearance and EOMI ENT ENT exam: Present normal exam, normal oropharynx and mucous membranes moist Neck Neck exam: Present normal inspection, full ROM and trachea midline Chest Chest inspection: Present normal inspection and symmetric chest wall rise Respiratory Respiratory exam: Present normal lung sounds bilaterally Cardiovascular Cardiovascular exam: Present regular rate, normal rhythm and normal heart sounds Abdominal Exam Abdominal exam: Present soft and normal bowel sounds Extremities Exam Extremities exam: Present other (right heel ulceration ) Back Exam Back exam: Present other (There is a large wound on his back measuring 4-5 cm with exposed tendon, bone from the tendons, and muscle tissue that appears white in color, possibly infected. No discharge. No wound on coccyx. ) Neurological Exam Neurological exam: Present other (Lethargic, altered ) Skin Skin exam: Present dry, intact and mottled Course Quality Measures Possible source: pulmonary, genitourinary and skin/soft tissue Blood cultures ordered: yes Antibiotic ordered: Yes Pertinent labs: 02/02/25 02/02/25 02/02/25 10:45 12:46 16:18 Lactic Acid 2.8 H mMol/L 2.8 H mMol/L (0.4-2.0) (0.4-2.0) Procalcitonin 0.24 ng/ml (0.0-0.49) sepsis Orders Category Date Time Status COVID-19 Screening Questionnaire NOW Care 02/02/25 17:54 Active Software Requirements Engineer STAT Care 02/02/25 11:01 Active Continuous Pulse Oximetry STAT Care 02/02/25 11:01 Completed Decision to Admit X1 Care 02/02/25 17:54 Completed EKG (ED ONLY) *Do not use* NOW Care 02/02/25 11:01 Completed Insert IV NOW Care 02/02/25 11:01 Active NPO STAT Care 02/02/25 11:01 Active Strict Intake and Output Routine Care 02/02/25 11:[address] chest abdomen pelvis wo Stat Exams 02/02/25 13:[address] head/brain wo con Stat Exams 02/02/25 13:09 Completed CXRP [XR chest 1V portable] Stat Exams 02/02/25 11:01 Completed EKG (ED Only) Stat Exams 02/02/25 11:01 Draft XR chest 1V post procedure Stat Exams 02/02/25 17:17 Completed 17-Hydroxyprogesterone* Stat Lab 02/02/25 16:18 Received Aldosterone* Stat Lab 02/02/25 16:18 Received B-Type Natriuretic Peptide Stat Lab 02/02/25 10:45 Completed Blood Culture (Lab) Stat Lab 02/02/25 10:45 Received CBC Stat Lab 02/02/25 10:45 Completed CK [Creatine Kinase] Stat Lab 02/02/25 10:45 Completed CMP [Comprehensive Metabolic Panel] Stat Lab 02/02/25 10:45 Completed Cortisol,Free,LC/MS/MS,24-Hr* Stat Lab 02/02/25 Ordered LDH (Lactate Dehydrogenase) Stat Lab 02/02/25 10:45 Completed Lactate (Lactic Acid) Stat Lab 02/02/25 12:46 Completed Lactic Acid, 3 HR Stat Lab 02/02/25 16:18 Completed Lipase Stat Lab 02/02/25 10:45 Completed Magnesium Stat Lab 02/02/25 10:45 Completed Partial Thromboplastin Time Stat Lab 02/02/25 10:45 Completed Phosphorous Stat Lab 02/02/25 10:45 Completed Procalcitonin Stat Lab 02/02/25 10:45 Completed Prothrombin Time with INR Stat Lab 02/02/25 10:45 Completed Renin Activity, Plasma* Stat Lab 02/02/25 16:18 Received Troponin I Stat Lab 02/02/25 10:45 Completed Troponin I Stat Lab 02/02/25 14:24 Completed Urinalysis, C/S if Indicated Stat Lab 02/02/25 14:34 Completed Urine Culture Stat Lab 02/02/25 14:34 Received Dexamethasone Inj [Decadron Inj] 10 mg Med 02/02/25 15:20 Discontinued Sodium Chloride 0.9% [Ns] 50 ml IV X1 Dextrose 50% Syr [D50w Syringe Abboject] Med 02/02/25 10:45 Discontinued 50 ml .ROUTE .STK-MED ONE Dextrose 50% Syr [D50w Syringe Abboject] Med 02/02/25 12:23 Discontinued 50 ml IVP X1 ONE Levofloxacin/D5w 750Mg Ivpb [Levaquin Ivpb] Med 02/02/25 11:01 Discontinued 750 mg in 150 ml IV X1 Norepinephrine/NS 16mg/250ml [Levophed in NS 16mg/250ml Med 02/02/25 17:11 Active ] 16 mg in 250 ml IV 0.05 mcg/kg/min Ondansetron Inj [Zofran Inj] Med 02/02/25 11:01 Active 4 mg IVP Q6HR PRN Ringers Lactated 1000 ml [Lactated Ringers] 1,000 ml Med 02/02/25 11:01 Discontinued IV 999 mls/hr Ringers Lactated 1000 ml [Lactated Ringers] 1,000 ml Med 02/02/25 14:50 Discontinued IV 999 mls/hr Ringers Lactated 1000 ml [Lactated Ringers] 1,000 ml Med 02/02/25 16:19 Discontinued IV 999 mls/hr Vancomycin Inj 1,500 mg Med 02/02/25 11:01 Discontinued Sodium Chloride 0.9% 250 ml [Ns] 250 ml IV X1 Oxygen Delivery NOW RT 02/02/25 11:01 Active Vital Signs Vital signs: Vital Signs Temperature 86.0 F L 02/02/25 10:33 Pulse Rate 95 02/02/25 10:33 Respiratory Rate 18 02/02/25 10:33 Blood Pressure 83/60 L 02/02/25 10:33 Pulse Oximetry (%) 100 02/02/25 10:33 Oxygen Delivery Method Room Air 02/02/25 10:33 PROCEDURES: Procedure Comment I directly supervised the resident during the arterial line insertion. The resident obtained informed consent when appropriate, performed a proper timeout, and demonstrated correct sterile technique throughout the procedure. Ultrasound guidance was used as indicated. The resident successfully cannulated the artery and secured the catheter without complications. Adequate waveform and blood return were confirmed. The patient tolerated the procedure well, and no immediate complications were observed. I was immediately available for the entire procedure and provided guidance as needed. Please refer to resident Dr. Brown's procedure note. Altered Mental Status MDM Narrative MDM Narrative:: I, Nicolette Rosales, am scribing for and in the presence of Dr. Veliz. 64 year old male with history of CVA with residual encerphalopathy, atrial fibrillation (previously on Eliquis, stopped ~ 2 weeks ago per ), CAD with multiple stents, hypertension, hyperlipidemia, history of upper GI bleed, chronic osteomyelitis thoracic spine with wound, wheelchair-bound presents to the ED BIBA from [facility] for altered mental status today. Per medics, [facility] staff reported lethargy and change in mental status beginning 2 days ago. Medics state on scene, BG was 54 and given Glucagon. Repeat BG 55. Per [facility] staff, patient was also noted to be hypotensive and febrile at 102F. Assessment: Sepsis Cellulitis Hypothermia Hypotension Atrial fibrillation Plan: Sepsis work-up Cardiac work-up CT head Labs, blood cultures, UA Imaging of T-spine and L-spine, chest xray Patient blood pressure had improved after 2L of IV fluids. Notified by RN that SBP is 50s now. Will give an additional 500cc LR bolus. I spoke with hospitalist team for admission. The SBP had improved to 110 though when repeated was in the 60s. Will place arterial line and consult with ICU. Arterial line was successfully inserted by the resident without complications. SBP 60s. I spoke with certified orthotist/pedorthist Dr. Arnold. Discussed patients PMHx, HPI, ED course, exam findings, labs, and radiology results. She accepts the patient for admission to the ICU. Patient data External records reviewed:: [facility] previous records, EMS form and Intermediate records (I reviewed pmhx and medication list from [place] ) Clinical information provided by:: EMS and spouse Social determinants that could affect healthcare access:: housing ([facility] resident ) Patient has the following chronic illnesses:: CVA with residual encerphalopathy, atrial fibrillation (previously on Eliquis, stopped ~ 2 weeks ago per ), CAD with multiple stents, hypertension, hyperlipidemia, history of upper GI bleed, chronic osteomyelitis thoracic spine with wound, wheelchair-bound How is presenting disease/condition affected by chronic disease/condition?: exacerbated by Evaluation data The following diagnostics were reviewed and interpreted by me:: lab results, radiology exam(s) and EKG tracing(s) (EKG @ 11:24 AM, interpreted by me, normal sinus rhythm with first degree AV block, right bundle branch block, no STEMI. ) Lab and/or radiology exams considered but not ordered:: None Interpretation Summary: Ordering Physician: Gertrudis Plascencia MD Date of Service: 02/02/25 Procedure(s): XR chest 1V portable Accession Number(s): [id number] cc: Gertrudis Plascencia MD; Carlos Saunders MD~ EXAMINATION: AP chest single view TECHNIQUE: AP portable semiupright chest single view Date and time: February 02, 2025, 1131 hours, comparison January 22, 2025 INDICATIONS: Altered mental status today. FINDINGS: The film is rotated LPO Pneumonia left base retrocardiac Mild prominence left ventricle Ectatic thoracic aorta IMPRESSION: Pneumonia left base, consider aspiration pneumonia Dictated By: Carlos Saunders MD Signed By: <Electronically signed by Carlos Saunders MD in OV> 02/02/25 1147 Medications / Prescriptions Medications or Prescriptions considered but not ordered:: None Medication administrations:: Medication Administration History Dextrose (Dextrose 50%-Water Inj 50 Ml Syringe) 50 ml IVP Q30MIN PRN PRN Reason: HYPOGLYCEMIA Stop: 03/05/25 00:22 Last Admin: 02/03/25 05:40 Dose: 50 ml Documented By: GELACIO Heparin Sodium (Porcine) (Heparin Sod Inj 5000 Unit/Ml Vial) 5,000 unit SC Q8HR HANNAH On Hold: 02/03/25 00:25 Stop: 02/16/25 21:59 Last Admin: 02/02/25 21:48 Dose: 5,000 unit Documented By: GELACIO Co-signed By: AD Norepinephrine Bitartrate (Levophed In Ns 16mg/250ml) 16 mg in 250 mls @ 4.176 mls/hr IV .Q24H PRN; Protocol PRN Reason: PER protocol Stop: 03/04/25 17:10 Last Titration: 02/03/25 06:00 Dose: 0.13 mcg/kg/min, 10.857 mls/hr Documented By: Titration: 02/03/25 05:44 Dose: 0.13 mcg/kg/min, 10.857 mls/hr Documented By: Titration: 02/03/25 05:00 Dose: 0.11 mcg/kg/min, 9.187 mls/hr Documented By: Titration: 02/03/25 04:00 Dose: 0.09 mcg/kg/min, 7.517 mls/hr Documented By: Titration: 02/03/25 03:00 Dose: 0.09 mcg/kg/min, 7.517 mls/hr Documented By: Titration: 02/03/25 02:00 Dose: 0.09 mcg/kg/min, 7.517 mls/hr Documented By: Titration: 02/03/25 01:00 Dose: 0.09 mcg/kg/min, 7.517 mls/hr Documented By: Titration: 02/03/25 00:00 Dose: 0.09 mcg/kg/min, 7.517 mls/hr Documented By: Titration: 02/02/25 23:00 Dose: 0.09 mcg/kg/min, 7.517 mls/hr Documented By: Titration: 02/02/25 22:30 Dose: 0.09 mcg/kg/min, 7.517 mls/hr Documented By: Titration: 02/02/25 22:00 Dose: 0.11 mcg/kg/min, 9.187 mls/hr Documented By: Titration: 02/02/25 21:00 Dose: 0.11 mcg/kg/min, 9.187 mls/hr Documented By: Titration: 02/02/25 20:05 Dose: 0.11 mcg/kg/min, 9.187 mls/hr Documented By: Titration: 02/02/25 19:29 Dose: 0.13 mcg/kg/min, 10.857 mls/hr Documented By: Titration: 02/02/25 18:50 Dose: 0.09 mcg/kg/min, 7.517 mls/hr Documented By: Titration: 02/02/25 18:45 Dose: 0.11 mcg/kg/min, 9.187 mls/hr Documented By: Titration: 02/02/25 18:25 Dose: 0.13 mcg/kg/min, 10.857 mls/hr Documented By: Titration: 02/02/25 18:20 Dose: 0.13 mcg/kg/min, 10.857 mls/hr Documented By: Titration: 02/02/25 18:15 Dose: 0.13 mcg/kg/min, 10.857 mls/hr Documented By: Titration: 02/02/25 18:10 Dose: 0.13 mcg/kg/min, 10.857 mls/hr Documented By: Titration: 02/02/25 18:05 Dose: 0.13 mcg/kg/min, 10.857 mls/hr Documented By: Titration: 02/02/25 18:00 Dose: 0.13 mcg/kg/min, 10.857 mls/hr Documented By: Titration: 02/02/25 17:55 Dose: 0.11 mcg/kg/min, 9.187 mls/hr Documented By: Titration: 02/02/25 17:50 Dose: 0.09 mcg/kg/min, 7.517 mls/hr Documented By: Titration: 02/02/25 17:45 Dose: 0.07 mcg/kg/min, 5.846 mls/hr Documented By: Admin: 02/02/25 17:40 Dose: 0.05 mcg/kg/min, 4.176 mls/hr Documented By: ED Cefepime HCl 2 gm/ Sodium (Chloride) 50 mls @ 100 mls/hr IV Q12HR HANNAH Stop: 02/09/25 21:00 Last Admin: 02/02/25 21:48 Dose: 100 mls/hr Documented By: GELACIO Comments: administered late, not given in previous unit before transfer to ICU Magnesium Sulfate (Magnesium Sulfate Ivpb) 4 gm in 50 mls @ 12.5 mls/hr IV X1 ONE Stop: 02/03/25 11:06 Ondansetron HCl (Ondansetron Inj 2 Mg/Ml Inj 2 Ml) 4 mg IVP Q6HR PRN PRN Reason: NAUSEA OR VOMITING Stop: 03/04/25 11:00 Pantoprazole Sodium (Pantoprazole Inj 40 Mg Vial) 40 mg IVP QDAY HANNAH Stop: 03/04/25 19:44 Last Admin: 02/02/25 21:47 Dose: 40 mg Documented By: GELACIO Comments: administered late, not given in previous unit before transfer to ICU Pharmacy Consult (Vancomycin Pharmacy To Dose 1 Each Each) 1 each IV QDAY PRN PRN Reason: PROTOCOL Stop: 03/04/25 18:44 Discontinued Medications Dextrose (Dextrose 50%-Water Inj 50 Ml Syringe) Confirm Administered Dose 50 ml .ROUTE .STK-MED ONE Stop: 02/02/25 10:46 Last Admin: 02/02/25 12:22 Dose: Not Given Documented By: ED Non-Admin Reason: Duplicate Medication on eMAR Dextrose (Dextrose 50%-Water Inj 50 Ml Syringe) 50 ml IVP X1 ONE Stop: 02/02/25 12:24 Last Admin: 02/02/25 10:45 Dose: 50 ml Documented By: ED Dextrose (Dextrose 50%-Water Inj 50 Ml Syringe) Confirm Administered Dose 50 ml .ROUTE .STK-MED ONE Stop: 02/02/25 19:26 Last Admin: 02/02/25 21:32 Dose: Not Given Documented By: GG Non-Admin Reason: Duplicate Medication on eMAR Dextrose (Dextrose 50%-Water Inj 50 Ml Syringe) 50 ml IVP X1 ONE Stop: 02/02/25 19:35 Last Admin: 02/02/25 19:25 Dose: 50 ml Documented By: BR Dextrose (Dextrose 50%-Water Inj 50 Ml Syringe) 50 ml IVP X1 ONE Stop: 02/03/25 07:06 Dextrose (Dextrose 50%-Water Inj 50 Ml Syringe) 50 ml IVP X1 ONE Stop: 02/03/25 07:06 Lactated Ringer's (Lactated Ringers) 1,000 mls @ 999 mls/hr IV .Q1H1M ONE Stop: 02/02/25 12:01 Last Infusion: 02/02/25 13:19 Dose: Infused Documented By: Admin: 02/02/25 12:09 Dose: 999 mls/hr Documented By: ED Levofloxacin/Dextrose (Levaquin Ivpb) 750 mg in 150 mls @ 100 mls/hr IV X1 ONE Stop: 02/02/25 12:30 Last Infusion: 02/02/25 16:05 Dose: Infused Documented By: Admin: 02/02/25 14:11 Dose: 100 mls/hr Documented By: EF Vancomycin HCl 1,500 mg/ (Sodium Chloride) 250 mls @ 250 mls/hr IV X1 ONE Stop: 02/02/25 12:00 Last Infusion: 02/02/25 16:05 Dose: Infused Documented By: Admin: 02/02/25 14:32 Dose: 250 mls/hr Documented By: EF Lactated Ringer's (Lactated Ringers) 1,000 mls @ 999 mls/hr IV .Q1H1M ONE Stop: 02/02/25 15:50 Last Infusion: 02/02/25 16:05 Dose: Infused Documented By: Admin: 02/02/25 14:54 Dose: 999 mls/hr Documented By: EF Dexamethasone Sodium Phosphate (10 mg/ Sodium Chloride) 51 mls @ 102 mls/hr IV X1 ONE Stop: 02/02/25 15:21 Last Infusion: 02/02/25 16:38 Dose: Infused Documented By: Admin: 02/02/25 16:08 Dose: 102 mls/hr Documented By: BD Lactated Ringer's (Lactated Ringers) 1,000 mls @ 999 mls/hr IV .Q1H1M ONE Stop: 02/02/25 17:19 Last Infusion: 02/02/25 17:34 Dose: Infused Documented By: Admin: 02/02/25 16:33 Dose: 999 mls/hr Documented By: BD Piperacillin/Tazobactam/Dextrose (Zosyn) 3.375 gm in 50 mls @ 12.5 mls/hr IV Q8HR HANNAH; Protocol Stop: 02/09/25 22:59 Piperacillin/Tazobactam/Dextrose (Zosyn) 3.375 gm in 50 mls @ 100 mls/hr IV X1 ONE; Protocol Stop: 02/02/25 19:14 Last Admin: 02/03/25 07:05 Dose: Not Given Documented By: MG Non-Admin Reason: Discontinued Ceftriaxone Sodium 2 gm/ (Sodium Chloride) 50 mls @ 100 mls/hr IV QDAY HANNAH Stop: 02/09/25 19:52 Last Admin: 02/03/25 07:05 Dose: Not Given Documented By: MG Non-Admin Reason: Discontinued Insulin Human Regular (Insulin Hum Regular 1 Unit/0.01 Ml (Per Unit)) 5 unit IV X1 ONE Stop: 02/03/25 07:06 Pharmacy Consult (Vancomycin Pharmacy To Dose 1 Each Each) 1 each IV QDAY HANNAH Stop: 03/04/25 18:44 Last Admin: 02/02/25 22:07 Dose: Not Given Documented By: GELACIO Non-Admin Reason: not given, held due to ampicillin allergy See above Consultations Consultation(s) initiated? (list below): Yes Consultation #1 (Physician, Specialty, Details): See MDM Diagnosis Most likely diagnosis given after review of the tests above:: Dehydration Aspiration pneumonia ARIA Sepsis Hypernatremia Hyperkalemia Hypothermia Hypotension UTI Admission Indicated Admission indicated?: indicated Admission Request Was there a request for admission?: Yes Admission Attestation Admission request attestation: Discussed case with [] from Hospitalist service regarding admission. Discussed patients ED course, exam findings, labs, and radiology results. The Hospitalist [agrees,declines] to accept the patient for admission. Disposition Plan Disposition Plan: Admit Critical Care Time Critical Care Time Critical Care Time: Yes Total Critical Care Time (min.): 75 Attestation: The high probability of sudden, clinically significant deterioration in the patient's condition required the highest level of my preparedness to intervene urgently. The services I provided to this patient were to treat and/or prevent clinically significant deterioration. Services included the following: chart data review, reviewing nursing notes and/or old charts, documentation time, device sales consultant collaboration regarding findings and treatment options, medication orders and management, direct patient care, vital sign assessments and ordering, interpreting and reviewing diagnostic studies and lab tests. Aggregate critical care time includes only time during which I was engaged in work directly related to the patient's care, as described above, whether at bedside or elsewhere in the Emergency Department. It did not include time spent performing other reported procedures or the services of residents, students, nurses or physician assistants. Discharge Plan Plan Patient Disposition: Admit Acute Care w/in Hospital Problem List Clinical Impression: Dehydration, Aspiration pneumonia, ARIA (acute kidney injury), Sepsis, Hypernatremia, Hyperkalemia, Hypothermia, Hypotension, Acute UTI
[2025-02-02 11:36] LABS: Basophils # (Auto) 0.0 Thou/mm3 (0.0-0.2); Basophils % (Auto) 0 % (0-2.5); Eosinophils # (Auto) 0.2 Thou/mm3 (0.0-0.5); Eosinophils % (Auto) 8 % (0-10); Hematocrit 24.8 % (41.0-53.0); Immature Granulocytes Auto 0.03 Thou/mm3 (0.00-0.00); Lymphocytes # (Auto) 0.4 Thou/mm3 (1.0-4.8); Lymphocytes % (Auto) 15 % (10-50); Mean Corpuscular HGB Conc 31.5 g/dl (31.0-37.0); Mean Corpuscular Hemoglobin 28.8 pg (25.0-35.0); Mean Corpuscular Volume 92 fL (80-100); Monocytes # (Auto) 0.1 Thou/mm3 (0.0-0.8); Monocytes % (Auto) 3 % (0-12); Neutrophils # (Auto) 2.2 Thou/mm3 (1.8-7.7); Neutrophils % (Auto) 73 % (37-80); Nucleated Red Blood Cell # 0.03 Thou/mm3 (0.00-0.00); Nucleated Red Blood Cell % 1 /100 WBC (0); Platelet Count 93 Thou/mm3 (140-440); RDW Standard Deviation 60.4 fL (35.1-43.9); Red Blood Count 2.71 Miln/mm3 (4.50-5.90); White Blood Count 3.0 Thou/mm3 (3.8-10.6)
[2025-02-02 11:40] LABS: Hemoglobin 7.8 g/dL (13.5-16.0)
[2025-02-02 11:43] LABS: INR 1.5 (0.9-1.3); Partial Thromboplastin Time 41.9 Seconds (22.0-36.0); Prothrombin Time 15.1 Seconds (9.0-12.2)
[2025-02-02 11:58] LABS: Alanine Aminotransferase 45 U/L (10-49); Albumin, Serum 2.4 gm/dL (3.4-4.8); Albumin/Globulin Ratio 1.0 (1.2-2.2); Alkaline Phosphatase 225 U/L (46-116); Anion Gap 11 (7-16); Aspartate Amino Transferase 58 U/L (0-34); BUN/Creatinine Ratio 15 Ratio (12-20); Bilirubin,Total 0.4 mg/dL (0.3-1.2); Blood Urea Nitrogen 35 mg/dL (9-23); Calcium 8.6 mg/dL (8.3-10.6); Calcium (Corrected) 9.9 mg/dL (8.5-10.1); Carbon Dioxide 17.3 mMol/L (20.0-31.0); Chloride 123 mMol/L (98-107); Creatine Kinase 87 U/L (34-171); Creatinine (Component) 2.3 mg/dL (0.6-1.3); Estimated Creatinine Clearance 36.1 mL/min (>60); Globulin 2.4 gm/dL (2.3-3.5); Glucose 54 mg/dL (74-106); LDH (Lactate Dehydrogenase) 234 U/L (120-246); Lipase 56 U/L (12-53); Magnesium 1.7 mg/dL (1.6-2.6); Osmolality,Calculated 305 (275-295); Phosphorous 5.6 mg/dL (2.4-5.1); Potassium 5.4 mMol/L (3.4-5.1); Procalcitonin 0.24 ng/ml (0.0-0.49); Sodium 151 mMol/L (136-145); Total Protein 4.8 gm/dL (5.7-8.2); eGFR 31 See Note
[2025-02-02 12:01] LABS: B-Type Natriuretic Peptide 193 pg/mL (0-100); Troponin I 0.152 ng/mL (0.0-0.045)
[2025-02-02] MEDS: RINGERS LACTATED 1000 ML 1,000 ML 999 ML IV ×3 (12:09→16:33)
[2025-02-02 12:54] LABS: Lactate (Lactic Acid) 2.8 mMol/L (0.4-2.0)
--- NOTE | 2025-02-02 13:09 | XR_ITS ---
Examination: CT brain head without contrast. 2-D sagittal coronal reconstructions Date and time of exam: February 02, 2025, 1348 hours, comparison January 24, 2025 INDICATIONS: Altered mental status today CTDI: vol (mGy): 50.9 DLP: (mGycm): 1057 Technique: Multiple CT axial sections of the brain have been obtained, 5 mm slice thickness. Contrast has not been administered. 2-D sagittal, coronal reconstructions have been obtained Low dose protocols were performed. One or more of the following dose reduction techniques were used; automated exposure control, adjustment of the mA and/or KV according to patient size, use of iterative reconstruction technique. Findings: Again noted bilateral subdural currently hygromas There is mild mass effect upon the right lateral ventricular system with shift of the frontal horns to the left 3 mm No acute hemorrhage Fourth ventricle midline Cranial vault intact IMPRESSION: Bilateral currently chronic subdural hygromas slightly larger at the cerebral convexities compared to the prior study Minimal mass effect as above No acute hemorrhage Short-term follow-up CT brain scan is recommended
--- NOTE | 2025-02-02 13:19 | XR_ITS ---
Examination: CT chest, without intravenous contrast. CT abdomen, without intravenous contrast. CT pelvis, without intravenous contrast. 2-D sagittal and coronal reconstructions. 3-D reconstructions. Date and time of exam: February 02, 2025, 1551 hours INDICATIONS: Sepsis, unknown etiology today CTDI vol (mgy) 18.2 DLP (MGycm) 1274 Technique: Multiple CT images, 3.0 mm slice thickness, obtained chest, abdomen, pelvis, with the high-resolution 64 slice scanner.. Sagittal and coronal 2-D reconstructions are obtained. 3-D reconstructions Low dose protocols were performed. One or more of the following dose reduction techniques were used; automated exposure control, adjustment of the mA and/or KV according to patient size, use of iterative reconstruction technique. Findings: Thoracic aortic calcification no aneurysmal dilatation Mild enlargement cardiac contour with mitral valvular calcification Bibasilar pneumonia with small to moderate pleural effusions Absent gallbladder No focal liver or splenic lesion Bilateral renal cysts, severe atrophy left kidney Heavy abdominal aortic calcification no aneurysmal dilatation No abdominal or pelvic abscess Normal appendix Severe osteopenia Abundant stool in the rectum Urinary bladder contracted around a Tinoco catheter, urinary bladder wall thickening IMPRESSION: Bibasilar pneumonia Small to moderate bilateral pleural effusions Severely atrophic left kidney Normal appendix No bowel obstruction No diverticulitis
--- NOTE | 2025-02-02 13:34 | PC.NURSE ---
Pt. in CT at this time. Pt.'s is bedside.
[2025-02-02] MEDS: LEVOFLOXACIN/D5W 750MG IVPB 750 MG/150 ML BAG 100 MG IV (14:11)
[2025-02-02 14:42] LABS: Collection Type, Urine Clean Catch
[2025-02-02 15:26] LABS: Troponin I 0.140 ng/mL (0.0-0.045)
[2025-02-02 15:49] LABS: Reflex Lactate? Y
[2025-02-02] MEDS: DEXAMETHASONE INJ 10 MG in SODIUM CHLORIDE 0.9% 50 ML 102 MG IV (16:08)
[2025-02-02 16:11] LABS: Amorphous Crystals,Urine Present (Absent); Bacteria,Urine Rare; Bilirubin,Urine Negative (Negative); Blood,Urine 1+ (Negative); Budding Yeast,Urine Present; Clarity,Urine Turbid (Clear/Hazy); Color,Urine Yellow (Lt Yel-Yel); Glucose, Urine Negative (Negative); Ketones,Urine Negative (Negative); Leukocyte Esterase,Urine Positive (Negative); Nitrite,Urine Negative (Negative); PH,Urine 5.5 (5.0-7.0); Protein,Urine Trace (Neg - Trace); RBC,Urine 23 /hpf (0-3); Specific Gravity,Urine 1.017 (1.001-1.035); Squamous Epithelial Cell,Urine < 1 /hpf (0-5); Urobilinogen,Urine Negative mg/dL (0.0-1.0); WBC,Urine 172 /hpf (0-5)
[2025-02-02 16:13] LABS: Culture Indicated,Urine Yes
[2025-02-02 16:24] LABS: Lactic Acid, 3 HR 2.8 mMol/L (0.4-2.0)
--- NOTE | 2025-02-02 17:17 | XR_ITS ---
EXAMINATION: AP chest single view TECHNIQUE: AP portable semiupright chest single view Date and time: February 02, 2025, 1807 hours, comparison February 02, 2025 11:31 a.m. INDICATIONS: Post central line placement. FINDINGS: Right internal jugular central line tip right atrium The film is rotated severely LPO Heart failure with enlarged left ventricle and prominent vascular congestion Suspicious for pneumonia left base IMPRESSION: Right internal jugular central line tip right atrium, no pneumothorax
[2025-02-02] MEDS: Norepinephrine/NS 16mg/250ml 16 MG/250 ML BAG 4.176 MG IV (17:40)
--- NOTE | 2025-02-02 17:50 | PC.NURSE ---
Dr. Maldonado, Dr. Ness, Dr. Veliz and Dr. Brown all bedside, Dr. Ness talking with pt.'s .
--- NOTE | 2025-02-02 18:03 | PC.NURSE ---
Dr. Ness states parameters for BP MAP above of 65.
--- NOTE | 2025-02-02 18:20 | PC.NURSE ---
Dr. Ness states ok to use central line.
--- NOTE | 2025-02-02 18:30 | PC.NURSE ---
Pt.'s Hope [phone] is going home to rest and states she will be back in the morning.
--- NOTE | 2025-02-02 18:31 | PD.RESPROC ---
PROCEDURES: Procedure Date / Time 02/02/25 1103 Arterial Line Indication(s): frequent arterial line sampling, shock and inability to monitor non-invasive BP Informed consent obtained: obtained from surrogate decision maker Time out done, and the following verified: correct patient, side and site, procedure and patient position Size (Gauge): 20 Technique used: direct puncture technique Post-Procedure: line sutured into place and dry sterile dressing placed Patient tolerated procedure: well and no complications EBL(ml): 2 Complications: none Site: left Procedure comment: Floor team was at first called to evaluate the patient for admission. Was bedside when patient deteriorated and unable to obtain BP readings. Placed left radial arterial line with Dr. Plascencia in ED. Surgical cap, mask, and sterile gloves were worn throughout the procedure. The left wrist was prepped using chlorhexidine scrub and draped in sterile fashion using a three quarter sheet drape. The radial pulse was identified and the wrist was positioned in the usual fashion. 1% lidocaine was used for local anesthesia. Using ultrasound technique to identify the radial artery, a needle was inserted into the radial artery. Arterial blood was seen to pulsate in the flash chamber. The internal guidewire was advanced easily into the radial artery. The catheter was then advanced over the wire and the needle and wire were withdrawn. The catheter was sutured in place. A sterile tape was placed over the catheter at the insertion site. The patient tolerated the procedure without any hemodynamic compromise. At the time of procedure completion, the catheter was connected to the residential monitor and calibrated. Appropriate waveform and blood pressure tracing was observed. Estimated blood loss is 2 mL. Procedure done under supervision of the attending ED physician, Dr. Plascencia. Theresa Brown, PGY-3
--- NOTE | 2025-02-02 18:32 | PD.RESPROC ---
PROCEDURES: Procedure Date / Time 02/02/25 8066 Central Line Placement Right IJ: Indication(s): shock Informed consent obtained: obtained from surrogate decision maker Time out done, and the following verified: correct patient, side and site, procedure and patient position Patient placed on monitor/pulse ox: Yes Hand Hygiene: alcohol-based hand rub Max Sterile Barrier Techniques used: cap, mask, sterile gown, sterile gloves and sterile full body drape Central line prep: Chlorhexidine scrub Local anesthesia used: lidocaine 1% Amount of anesthesia used (mL): 5 Ultrasound used for placement: Yes Sterile Technique if Ultrasound used, including sterile gel: yes Central line lumen inserted: triple Post procedure: sutured in place, good blood return, all ports aspirated, flushed, capped and sterile dressing applied Post procedure x-ray: tip of catheter in good position Patient tolerated procedure: well and no complications EBL(ml): 1 Complications: none Procedure comment: Informed consent was obtained via the patient's who was at the bedside. PROCEDURE SUMMARY: A time out was performed. I wore a surgical cap, mask with protective eyewear, full gown and sterile gloves throughout the procedure. The patient was placed in Trendelenburg position. RIGHT chest region was prepped using chlorhexidine scrub and draped in sterile fashion using a full drape and sterile probe cover and sterile gel employed. The medial and lateral heads of the sternocleidomastoid muscle were identified as was the carotid pulse. The Internal Jugular vein was identified using the ultrasound. Anesthesia was achieved over the vein using 1% lidocaine. Using real-time out of plane guidance, the introducer needle was inserted into the Internal Jugular vein under direct ultrasound visualization. Venous blood was withdrawn. The syringe was removed and a guidewire was advanced into the introducer needle. The guidewire was visualized in the Internal Jugular Vein by ultrasound. A small incision was made at the skin surface with a scalpel and the introducer needle was exchanged for a dilator over the guidewire. After appropriate dilation was obtained, the dilator was exchanged over the wire for a central venous catheter. The wire was removed and the catheter was sutured in place at 3 cm. A sterile sorbaview shield was placed over the catheter at the insertion site. The patient tolerated the procedure without any hemodynamic compromise. At time of procedure completion, all ports aspirated and flushed properly. Post-procedure chest x-ray is pending at this time. Estimated blood loss is <1 ml. Procedure done under supervision of the attending ED physician, Dr. Plascencia. Theresa Brown, PGY-3
--- NOTE | 2025-02-02 18:35 | ESHP_ITS ---
<Statement entered by Pedro Anne MD - 02/02/25 19:48> I have reviewed the note and agree with the resident's assessment & plan with exceptions as below. I have personally reviewed labs, imaging, home meds/prior records, examined the patient, formulated and discussed management plan with my attending. 64-year-old male with past medical history of A-fib currently off Eliquis, CAD s/p multiple stents on Plavix, CVA, CKD, Castorena's esophagus, previous UGIB, esophageal ulcers, and chronic osteomyelitis was admitted to the ICU in the setting of shock. Patient in the ED came in with altered mental status from [facility] and low blood pressure. Patient's was at bedside and provided all the history given patient nonverbal and no able to follow commands. Patient's states patient has been nonverbal for the past 2 days and that yesterday night he was having what she described as a mute scream. She also mentioned she noticed the patient more stiff in the arms. Otherwise also mentioned patient has the tenorio in place since discharge on 01/27/25 from our hospital for which he was admitted for similar presentation. She also mentioned patient has been having decreased intake for the past 2 days, but does not know if patient has had any fevers or cough. At this time she signed a POLST form with FULL CODE. It was also discussed with her of patient's multiple and frequent hospital admissions with decline in health. At this time patient will be treated for shock likely 2/2 UTI vs PNA as UA was positive for rare bacteria and leukocyte esterase as well as bladder wall thickening on CT. PNA was also seen on CT chest/abdomen/pelvis. Will get VBG from RIJ central line to assess for possible cardiogenic, even though less likely. Limited bedside US of R LE did showed pulsutile arterial flow in the lower extremity given pulses were difficult to palpate. If patient continues to deteriorate and encephalopathy does not improve will order MRI. In summary: #Shock #Acute encephalopathy #Metabolic acidosis #UTI #PNA #Hypothermia #Lactic acidosis - Shock likely due to UTI vs PNA less likely cardiogenic - Limited bedside echo showed dynamic wall motion without any gross wall motion abnormalities, could not assess for D sign and, IVC did not seem variable. ? Currently on Levophed -Consider steroids if increase in vasopressor requirements ? Got around 3 L of IV fluids in the ER ? On vancomycin and Zosyn ? Follow-up on urine and blood cultures ?On warming blanket due to hypothermia ? F/U on repeat RFT and LA -F/U on VBG to calculate Jose Roberto's formula for CO and CI. #Transaminitis LFT uptrending compared to previous admission F/U on abdominal US #Pancytopenia Hgb 7.8, Plt 93 , WBC 3 (w/o neutropenia) likely 2/2 septic shock F/U morning CBC #Electrolyte imbalance #hypernatremia #hyperchloremia #hyperkalemia Na 151, K 5.4, Chloride 123 Likely hemoconcentration given low intake Got 3 L of IVF Avoid hypotonic solution for now F/U repeat RFT Pedro Anne PGY2 Disclaimer: Even though this this note was dictated by speech recognition and even though it was carefully revised there may still be minor errors in pediatric nurse due to voice recognition software. Documentation for date of: 02/02/25 HPI History of Present Illness Chief complaint: Altered mental status History of present illness: This patient is a 64-year-old male with history of atrial fibrillation (was previously on Eliquis), CAD status post multiple stents, CVA, wheelchair-bound, CKD, Castorena's esophagus, esophageal ulcers with past upper GI bleed, and chronic osteomyelitis of the lower thoracic spine who presented to [facility] ED on 02/02 from [facility] for altered mental status. The patient was admitted to the ICU for management of shock requiring vasopressors. This patient is very well-known to [facility] and was recently discharged on 01/27 after presenting very similarly. At that time, the patient was admitted to ICU for management of shock requiring vasopressors, was found to have small and stable subdural hemorrhage which prompted neurology to recommend holding the patient's anticoagulation, and discharged on his home regimen of doxycycline and Keflex which was prescribed until per ID consultation from her previous hospitalization for the patient's chronic osteomyelitis. It is unclear how much mental capabilities the patient recovered as the patient's baseline and resolved the patient having limited vocabulary, but is able to eat on his own. The patient remained stable for a few days until around 01/31 when the noticed that the patient became much less responsive and would not eat his food. On 02/02 in the morning, nursing staff noted that the patient had hypoglycemia with a blood glucose of 55, hypotension, and a fever of 102 ?F. According to the patient's , the patient was seemingly tensed up and appeared to be silently screaming the night before. The believes that the patient is in pain and is trying to communicate, but is unable to. Additionally, the patient's notes that the patient's arms became swollen, but the swelling has since decreased with some residual swelling in the patient's right arm. Of note, the patient was made limited code during the previous hospitalization, but the patient's has revoked that and made the patient full code for this hospitalization. The patient's has signed a POLST form reflecting this decision. The patient was unable to provide any history as he was unresponsive and seemingly staring off into space with random jerking motions. ED course: Patient presented with vital significant for blood pressure of 83/60 and temperature of 86 ?F. Patient was given an amp of D50 due to blood glucose being 54 on initial evaluation. Initial labs were significant for WBC 3.0, hemoglobin 7.8, platelets 93, INR 1.5, sodium 151, potassium 5.4, chloride 123, bicarb 17.3, creatinine 2.3, AST 58, alk phos 225, and lactic acid of 2.8. Relevant labs within normal limits include procalcitonin and bilirubin of 0.4. Urinalysis was positive for leukocyte esterases, 172 WBC, and rare urine bacteria. CT head shows bilateral chronic subdural hygromas while CT chest/abdomen versus pelvis shows bibasilar pneumonia, severely atrophic left kidney, and urinary bladder contracted around a Tenorio catheter with urinary bladder wall thickening. The patient was given 1 amp of D50, 3 L of LR, and started on dexamethasone. When the patient's blood pressure send the decreased to below 65 MAP after fluid resuscitation, Levophed was started. Central line and arterial line were placed. Review of Systems Review of Systems ROS Unobtainable: unobtainable due to mental status Exam Vital Signs Temp Pulse Resp BP Pulse Ox O2 Del Method 87.6 F L 80 22 H 66/38 L 100 Room Air 02/02/25 16:39 02/02/25 18:15 02/02/25 18:15 02/02/25 17:45 02/02/25 16:39 02/02/25 16:39 Narrative Exam General: Staring off into space, unreactive. RIJ central line. Skin: Dry, flaky, cool, intact. Diffuse and scattered scabs noted throughout the body, most prominent and numerous on bilateral upper extremities and chest. HEENT: Normocephalic, atraumatic, mucous membranes moist. Pupils reactive to light. Bright red line of erythema noted on outer lips. Cardiovascular: Regular rate and irregular rhythm, no murmur, +S1/S2. Respiratory: Lungs are clear to auscultation, respirations unlabored, no crackles, no wheezing. Gastrointestinal: Soft, nontender, non-distended. No guarding or rebound tenderness. : Tenorio in place Extremities: No edema, no cyanosis, no clubbing. Capillary refill 4-5 seconds in upper extremities, unable to appreciate lower extremity pulses on palpation but positive pulses in bilateral lower extremities with bedside ultrasound. Bilateral lower extremity noted to have significantly dry and flaky skin. Right heel open estimated 3.5cm x 1.5cm sore with red coloring. Back: Multiple scabs across upper back. Lower back ulcer estimated 7cm x 3cm x 0.5cm with light red surrounding and exposure of tissue above spine. Bilateral pink/red ulcerations on upper buttocks. Neuro: Moving BUE, no movement of BLE. Not following commands or responsive. Results: Labs 02/03/25 05:35 02/03/25 05:35 Labs: Short CBC 02/02/25 Range/Units 10:45 WBC 3.0 L (3.8-10.6) Thou/mm3 Hgb 7.8 L (13.5-16.0) g/dL Hct 24.8 L (41.0-53.0) % Plt Count 93 L (140-440) Thou/mm3 BMP 02/02/25 10:45 Sodium 151 H Potassium 5.4 H Chloride 123 H* Carbon Dioxide 17.3 L BUN 35 H Creatinine 2.3 H Glucose 54 L Calcium 8.6 Cardiac Enzymes 02/02/25 02/02/25 Range/Units 10:45 14:24 Total Creatine Kinase 87 (34-171) U/L Troponin I 0.152 H* 0.140 H* (0.0-0.045) ng/mL Liver Function 02/02/25 Range/Units 10:45 Total Bilirubin 0.4 (0.3-1.2) mg/dL AST 58 H (0-34) U/L ALT 45 (10-49) U/L Alkaline Phosphatase 225 H (46-116) U/L Albumin 2.4 L (3.4-4.8) gm/dL Urine 02/02/25 Range/Units 14:34 Urine Color Yellow (Lt Yel-Yel) Urine Clarity Turbid A (Clear/Hazy) Urine pH 5.5 (5.0-7.0) Ur Specific [place] 1.017 (1.001-1.035) Urine Protein Trace (Neg - Trace) Urine Glucose (UA) Negative (Negative) Quality Measures Quality Measures VTE prophylaxis and sepsis Current suspected stage: sepsis Possible source: pulmonary, genitourinary and skin/soft tissue Blood cultures ordered: yes Antibiotic ordered: Yes Medications Home Medications and Allergies Home Medications ?Medication ?Instructions ?Recorded ?Confirmed ?Type isosorbide mononitrate 30 mg 60 mg PO QDAY 10/20/23 History tablet,extended release 24 hr Held on 01/27/25. Instructions: Resume on 02/14/25. Follow up with Train Director before resuming acetaminophen 325 mg tablet 650 mg PO Q4H PRN pain (sc terence 01/01/25 01/20/25 History score 1-3) and fever atorvastatin 40 mg tablet 40 mg PO HS HDL 01/01/25 History ascorbic acid (vitamin C) 500 mg 500 mg PO BID supplem ent 01/20/25 01/20/25 History tablet (C-500) bisacodyl 10 mg rectal suppository 10 mg MA QDAY PRN c onstipation 01/20/25 01/20/25 History (Dulcolax (bisacodyl)) hydroxyzine HCl 25 mg tablet 25 mg PO BID Itching 01/0601/20/25 History metoprolol tartrate 100 mg tablet 100 mg PO BID HTN 01/20/25 History Held on 01/27/25. Instructions: Resume on 02/14/25. Follow up with Train Director before resuming multivitamin with folic acid 400 1 tab PO QDAY supplem ent 01/20/25 01/20/25 History mcg tablet (Daily-Lissette (with folic acid)) sodium phosphates 19 gram-7 118 ml MA QDAY PRN constip ation 01/20/25 01/20/25 History gram/118 mL enema (Fleet Enema) zinc sulfate 50 mg zinc (220 mg) 50 mg PO QDAY supplem ent 01/20/25 01/20/25 History capsule (Zinc-220) Allergies Allergy/AdvReac Type Severity Reaction Status Date / Time bee pollen Allergy Severe Anaphylaxis Verified 02/02/25 11:16 Sulfa (Sulfonamide Allergy Intermediate Swelling Verified 02/02/25 11:16 Antibiotics) of Lip/Tongue/Throat ampicillin Allergy Unknown Hives Verified 02/02/25 11:16 hydrocodone AdvReac Unknown Nausea Verified 02/02/25 11:16 COLLAGEN Allergy Intermediate Rash Uncoded 02/02/25 11:16 Visit Medications Norepinephrine Bitartrate (Levophed In Ns 16mg/250ml) 16 mg in 250 mls @ 4.176 mls/hr IV .Q24H PRN; Protocol PRN Reason: PER protocol Stop: 03/04/25 17:10 Last Titration: 02/02/25 18:25 Dose: 0.13 mcg/kg/min, 10.857 mls/hr Piperacillin Sod/Tazobactam (Sod 4.5 gm/ Sodium Chloride) 100 mls @ 200 mls/hr IV Q6HR HANNAH; Protocol Stop: 02/09/25 18:31 Ondansetron HCl (Ondansetron Inj 2 Mg/Ml Inj 2 Ml) 4 mg IVP Q6HR PRN PRN Reason: NAUSEA OR VOMITING Stop: 03/04/25 11:00 Pharmacy Consult (Vancomycin Pharmacy To Dose 1 Each Each) 1 each IV QDAY HANNAH Stop: 03/04/25 18:44 Discontinued Medications Dextrose (Dextrose 50%-Water Inj 50 Ml Syringe) 50 ml IVP X1 ONE Stop: 02/02/25 12:24 Last Admin: 02/02/25 10:45 Dose: 50 ml Lactated Ringer's (Lactated Ringers) 1,000 mls @ 999 mls/hr IV .Q1H1M ONE Stop: 02/02/25 12:01 Last Infusion: 02/02/25 13:19 Dose: Infused Levofloxacin/Dextrose (Levaquin Ivpb) 750 mg in 150 mls @ 100 mls/hr IV X1 ONE Stop: 02/02/25 12:30 Last Infusion: 02/02/25 16:05 Dose: Infused Vancomycin HCl 1,500 mg/ (Sodium Chloride) 250 mls @ 250 mls/hr IV X1 ONE Stop: 02/02/25 12:00 Last Infusion: 02/02/25 16:05 Dose: Infused Lactated Ringer's (Lactated Ringers) 1,000 mls @ 999 mls/hr IV .Q1H1M ONE Stop: 02/02/25 15:50 Last Infusion: 02/02/25 16:05 Dose: Infused Dexamethasone Sodium Phosphate (10 mg/ Sodium Chloride) 51 mls @ 102 mls/hr IV X1 ONE Stop: 02/02/25 15:21 Last Infusion: 02/02/25 16:38 Dose: Infused Lactated Ringer's (Lactated Ringers) 1,000 mls @ 999 mls/hr IV .Q1H1M ONE Stop: 02/02/25 17:19 Last Infusion: 02/02/25 17:34 Dose: Infused Assessment & Plan Plan This patient is a 64-year-old male with history of atrial fibrillation (was previously on Eliquis), CAD status post multiple stents, CVA, wheelchair-bound, CKD, Castorena's esophagus, esophageal ulcers with past upper GI bleed, and chronic osteomyelitis of the lower thoracic spine who presented to [facility] ED on 02/02 from [facility] for altered mental status. The patient was admitted to the ICU for management of shock requiring vasopressors. NEURO #Acute encephalopathy DDx: Metabolic derangement Dx: Patient noted to have a sudden change in behavior side time on 01/31 where the patient became much less responsive and did not eat, progressing into being completely unresponsive CT head 02/02 shows bilateral chronic subdural hygromas with mild mass effect upon the right lateral ventricle system with shift of frontal horns to the left by 3 mm EEG completed 01/22 negative for epileptiform discharges Rx: Manage suspected underlying infection #Bilateral subdural hygromas Dx: CT head 02/02 shows bilateral chronic subdural hygromas with mild mass effect upon the right lateral ventricle system with shift of frontal horns to the left by 3 mm CARDIO #Shock #Hypothermia DDx: Distributive, cardiogenic Dx: Patient presented with blood pressure of 83/60, which was initially responsive to 3 L of IVF bolus, but later decompensated and required Levophed to maintain MAP above 65 in the ED Patient noted to have a temperature of 86 ?F in the ED on presentation and had a fever of 102 ?F at his [facility]F Patient was recently admitted to [facility] ICU for similar presentation, which had improved with IV antibiotics and hydrocortisone Patient does have chronic osteomyelitis with a significantly large stage IV ulcer in lower thoracic region to which the patient is only able to tolerate oral antibiotics as the patient has self removed PICC lines in the past for IV antibiotics Patient also has history of ESBL Enterococcus faecalis in urine Rx: Continue with Martine hugger Levophed to maintain MAP above 65 Renin, aldosterone, and 17-hydroxyprogesterone levels ordered, pending Vancomycin and Zosyn Ordered VBG from central line Urine cultures collected 02/02, pending Blood cultures collected 02/02, pending #Atrial fibrilation Dx: Patient has a history of atrial fibrilation and previously took Eliquis, but this was put on hold from the patient's previous hospital admission until the patient could be re-evaluated outpatient Rx: Continue to hold anticoagulation #Elevated troponins Dx: Initially 0.152, downtrended to 0.140 Likely NSTEMI type II demand ischemia secondary to shock and hypothermia PULM #L base Pnuemonia DDx: Healthcare facility associated pneumonia vs aspiration Dx: As noted on CT chest/abdomen/pelvis taken 02/02 Patient breathing comfortably on room air without increased work of breathing on admission Rx: Vancomycin and Zosyn GI #History of Castorena's esophagus #History of esophageal ulcers with upper GI bleed Dx: Per chart review EGD performed 01/22 showed esophageal ulcers without active bleeding Colonoscopy performed 01/24 showed internal hemorrhoids and mild diverticulosis in the sigmoid colon and descending colon Rx: Protonix 40 mg daily #Elevated liver enzymes Dx: AST noted to be 58 and alk phos 225 on admission, ALT within normal limits but elevated compared to previous hospitalization Rx: Abdominal ultrasound ordered, pending NEPHRO #CKD stage IV Dx: Creatinine on admission 2.3, noted to be downtrending compared to previous creatinine values Possible ARIA as patient's does report poor urine output on 02/02 Rx: Avoid nephrotoxic drugs, renally dose medications #Lactic acidosis Dx: Lactic acid to be 2.8 on admission Rx: Manage underlying shock with IVF and vasopressors Continue Zosyn and Vancomycin #Bilateral renal cysts #Atrophic left kidney Dx: As noted on CT chest/abdomen/pelvis on 02/02 Rx: Patient to follow up outpatient URO #Indwelling tenorio catheter Dx: Patient presented with tenorio catheter placed, noted to have been planned for discontinuation after the patient completed bladder exercises Possible source of infection given bladder was contracted around tenorio catheter on CT chest/abdomen/pelvis taken 02/02 Rx: Urine cultures collected 02/02, pending Will reassess need for Tenorio catheter and possibly exchange catheter HEME #Pancytopenia Dx: Patient noted to have WBC 3.0, RBC 2.71, hemoglobin 7.8, and platelet 93 Likely secondary to shock Rx: Will consider further workup for myelodysplastic syndromes #Electrolyte abnormalities #Hypernatremia #Hyperkalemia #Hyperchloremia Dx: Sodium 151, potassium 5.4, and chloride 123 on admission Likely secondary to dehydration as the patient has not had any oral intake for the past 2 days prior to admission Free water deficit 3.5 L on admission Rx: Patient is s/p 3 L of IVF hydration in ED Repeat renal panel in the evening #Normal anion gap metabolic acidosis Dx: Albumin corrected anion gap 14.7, suggesting non-anion gap metabolic acidosis Rx: Consider ordering urine electrolytes for further workup ENDO #No active problems ID #History of Enterococcus faecalis in urine #History of chronic osteomyelitis T12-L2 Dx: Per chart review, patient does have a history of Enterococcus faecalis in urine and chronic osteomyelitis with previous wound cultures growing pansensitive [facility] MRI lumbar spine 12/15/2024 notes osteomyelitis in T12-L2, patient had previously pulled out PICC line during past hospitalizations, so was recently discharged with oral antibiotics MSK #No active problems SKIN #Stage IV ulcer, lower back, T11-T12 Dx: Lower back ulcer (on admission estimate size 5 cm x 3 cm x 0.5 cm) with exposure to subcutaneous tissue, slight bloody discharge without expression of pus noted on admission Patient does have a history of a chronic stage IV ulcer in his mid back, possible source of chronic osteomyelitis during previous admissions Rx: Wound care referral Keep patient on his sides Follow-up: Monitor size and characteristics of wound daily, if worsening consider wound culture and referral to general surgery for debridement #Multiple scattered scabs Dx: Multiple diffuse and scattered scabs noted throughout the body, most numerous and prominent on bilateral upper extremities and chest Feeding/fluids: NPO; Levophed Analgesia: N/A Sedation: N/A Thromboprophylaxis: Heparin Head up position: 30 degrees Ulcer prophylaxis: Protonix Glycemic control: AM blood glucose & bedside glucose checks Q6h Spontaneous breathing trial: N/A Bowel care: N/A Indwelling catheters: RIJ Central line, arterial line Deescalation of antibiotics: Currently on Zosyn & Vancomycin CODE STATUS: Full Code Reason for ICU care: shock requiring vasopressors Patient plan of care was discussed with the attending bulk sugar handler, Dr. Arnold and senior resident Dr. Ness (PGY-2) Michel Maldonado, PGY-1
--- NOTE | 2025-02-02 18:52 | XR_ITS ---
Examination: Abdomen sonogram, complete Date and time of exam: February 02, 2025, 1957 hours INDICATIONS: Elevated liver function tests on laboratory examination today. TECHNIQUE: Grayscale sonographic images abdomen FINDINGS: Absent gallbladder Common bile duct 0.4 cm Pancreatic head 3.7 cm Liver 14.8 cm lobular contour no focal liver lesions Normal hepatopetal portal venous flow Patent IVC Right kidney 12.1 cm renal cortex 1.3 cm moderate renal scarring benign renal cysts IMPRESSION: Absent gallbladder Normal common bile duct Suspect primary hepatocellular disease.
[2025-02-02 19:17] LABS: Base Excess, Venous -7 (-3-3); O2 Saturation, Venous 92 % (96-97); PCO2, Venous 30 mmHg (36-56); PO2, Venous 65 mmHg (15-58); pH, Venous 7.38 (7.33-7.66)
[2025-02-02 19:49] LABS: Albumin, Serum 2.2 gm/dL (3.4-4.8); BUN/Creatinine Ratio 13 Ratio (12-20); Blood Urea Nitrogen 27 mg/dL (9-23); Calcium 8.5 mg/dL (8.3-10.6); Calcium (Corrected) 9.9 mg/dL (8.5-10.1); Carbon Dioxide 16.4 mMol/L (20.0-31.0); Creatinine (Component) 2.1 mg/dL (0.6-1.3); Estimated Creatinine Clearance 39.6 mL/min (>60); Phosphorous 5.1 mg/dL (2.4-5.1); Potassium 4.8 mMol/L (3.4-5.1); Sodium 150 mMol/L (136-145); eGFR 35 See Note
[2025-02-02 19:59] LABS: Anion Gap 12 (7-16); Chloride 122 mMol/L (98-107); Glucose 50 mg/dL (74-106); Osmolality,Calculated 300 (275-295)
[2025-02-02] MEDS: HEPARIN SOD INJ 5000 UNIT/ML VIAL SC (21:48)
[2025-02-02] MEDS: CEFEPIME INJ 2 GM in SODIUM CHLORIDE 0.9% (Popper) 50 ML IV (21:48)
[2025-02-02 23:34] LABS: Lactate (Lactic Acid) 1.4 mMol/L (0.4-2.0)
[2025-02-02 23:51] LABS: Ammonia 11 uMol/L (11-32)
[2025-02-03] VITALS (161 sets, daily range): BP systolic 79–125; BP diastolic 40–79; PULSE 58–132; RESP 13–100; TEMP 34.3–36.8; O2SAT 85–100
[2025-02-03 01:44] LABS: Lactate (Lactic Acid) 1.5 mMol/L (0.4-2.0)
[2025-02-03] MEDS: DEXTROSE 50%-WATER INJ 50 ML SYRINGE IVP ×3 (05:40→07:44)
[2025-02-03 06:01] LABS: Lactate (Lactic Acid) 1.5 mMol/L (0.4-2.0)
[2025-02-03 06:07] LABS: Basophils # (Auto) 0.0 Thou/mm3 (0.0-0.2); Basophils % (Auto) 0 % (0-2.5); Eosinophils # (Auto) 0.0 Thou/mm3 (0.0-0.5); Eosinophils % (Auto) 0 % (0-10); Hematocrit 22.8 % (41.0-53.0); Immature Granulocytes Auto 0.05 Thou/mm3 (0.00-0.00); Lymphocytes # (Auto) 0.2 Thou/mm3 (1.0-4.8); Lymphocytes % (Auto) 4 % (10-50); Mean Corpuscular HGB Conc 32.5 g/dl (31.0-37.0); Mean Corpuscular Hemoglobin 29.8 pg (25.0-35.0); Mean Corpuscular Volume 92 fL (80-100); Monocytes # (Auto) 0.1 Thou/mm3 (0.0-0.8); Monocytes % (Auto) 1 % (0-12); Neutrophils # (Auto) 5.2 Thou/mm3 (1.8-7.7); Neutrophils % (Auto) 94 % (37-80); Nucleated Red Blood Cell # 0.13 Thou/mm3 (0.00-0.00); Nucleated Red Blood Cell % 2 /100 WBC (0); Platelet Count 132 Thou/mm3 (140-440); RDW Standard Deviation 61.5 fL (35.1-43.9); Red Blood Count 2.48 Miln/mm3 (4.50-5.90); White Blood Count 5.5 Thou/mm3 (3.8-10.6)
[2025-02-03 06:16] LABS: Hemoglobin 7.4 g/dL (13.5-16.0)
[2025-02-03 06:38] LABS: Alanine Aminotransferase 43 U/L (10-49); Albumin, Serum 2.4 gm/dL (3.4-4.8); Albumin/Globulin Ratio 1.0 (1.2-2.2); Alkaline Phosphatase 223 U/L (46-116); Anion Gap 11 (7-16); Aspartate Amino Transferase 54 U/L (0-34); BUN/Creatinine Ratio 13 Ratio (12-20); Bilirubin,Total 0.3 mg/dL (0.3-1.2); Blood Urea Nitrogen 32 mg/dL (9-23); Calcium 8.3 mg/dL (8.3-10.6); Calcium (Corrected) 9.6 mg/dL (8.5-10.1); Carbon Dioxide 15.7 mMol/L (20.0-31.0); Chloride 123 mMol/L (98-107); Creatinine (Component) 2.4 mg/dL (0.6-1.3); Estimated Creatinine Clearance 34.6 mL/min (>60); Free T4 (Free Thyroxine) 0.61 ng/dL (0.89-1.76); Globulin 2.4 gm/dL (2.3-3.5); Glucose 70 mg/dL (74-106); Magnesium 1.5 mg/dL (1.6-2.6); Osmolality,Calculated 302 (275-295); Phosphorous 5.2 mg/dL (2.4-5.1); Potassium 5.4 mMol/L (3.4-5.1); Sodium 150 mMol/L (136-145); Thyroid Stimulating Hormone 9.35 uIU/mL (0.55-4.78); Total Protein 4.8 gm/dL (5.7-8.2); eGFR 30 See Note
[2025-02-03] MEDS: Magnesium Sulfate 4 GM Ivpb 4 GM/50 ML BAG IV (07:42)
[2025-02-03] MEDS: INSULIN HUM REGULAR 1 UNIT/0.01 ML (PER UNIT) 5 UNIT IV (07:43)
[2025-02-03] MEDS: CEFEPIME INJ 2 GM in SODIUM CHLORIDE 0.9% (Popper) 50 ML IV ×2 (08:17→20:56)
[2025-02-03 09:11] LABS: Lactate (Lactic Acid) 3.8 mMol/L (0.4-2.0)
[2025-02-03] MEDS: VANCOMYCIN/NS 500 MG IVPB 100 ML 120 MG IV (09:56)
[2025-02-03 10:03] LABS: Ammonia < 10 uMol/L (11-32)
[2025-02-03] MEDS: DEXTROSE 5%-WATER 1,000 ML 100 ML IV ×2 (10:24→21:38)
--- NOTE | 2025-02-03 10:32 | ESPR_ITS ---
<Statement entered by Pedro Anne MD - 02/03/25 20:57> I have reviewed the note and agree with the resident's assessment & plan with exceptions as below. I have personally reviewed labs, imaging, home meds/prior records, examined the patient, formulated and discussed management plan with my attending Pedro Anne PGY2 Disclaimer: Even though this this note was dictated by speech recognition and even though it was carefully revised there may still be minor errors in product manufacturing professional due to voice recognition software. 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 The patient was admitted to the ICU for management of shock requiring vasopressors. This patient is very well-known to [facility] and was recently discharged on 01/27 after presenting very similarly. At that time, the patient was admitted to ICU for management of shock requiring vasopressors, was found to have small and stable subdural hemorrhage which prompted neurology to recommend holding the patient's anticoagulation, and discharged on his home regimen of doxycycline and Keflex which was prescribed until per ID consultation from her previous hospitalization for the patient's chronic osteomyelitis. It is unclear how much mental capabilities the patient recovered as the patient's baseline and resolved the patient having limited vocabulary, but is able to eat on his own. The patient remained stable for a few days until around 01/31 when the noticed that the patient became much less responsive and would not eat his food. On 02/02 in the morning, nursing staff noted that the patient had hypoglycemia with a blood glucose of 55, hypotension, and a fever of 102 ?F. According to the patient's , the patient was seemingly tensed up and appeared to be silently screaming the night before. The believes that the patient is in pain and is trying to communicate, but is unable to. Additionally, the patient's notes that the patient's arms became swollen, but the swelling has since decreased with some residual swelling in the patient's right arm. Of note, the patient was made limited code during the previous hospitalization, but the patient's has revoked that and made the patient full code for this hospitalization. The patient's has signed a POLST form reflecting this decision. The patient was unable to provide any history as he was unresponsive and seemingly staring off into space with random jerking motions. ED course: Patient presented with vital significant for blood pressure of 83/60 and temperature of 86 ?F. Patient was given an amp of D50 due to blood glucose being 54 on initial evaluation. Initial labs were significant for WBC 3.0, hemoglobin 7.8, platelets 93, INR 1.5, sodium 151, potassium 5.4, chloride 123, bicarb 17.3, creatinine 2.3, AST 58, alk phos 225, and lactic acid of 2.8. Relevant labs within normal limits include procalcitonin and bilirubin of 0.4. Urinalysis was positive for leukocyte esterases, 172 WBC, and rare urine bacteria. CT head shows bilateral chronic subdural hygromas while CT chest/abdomen versus pelvis shows bibasilar pneumonia, severely atrophic left kidney, and urinary bladder contracted around a Tenorio catheter with urinary bladder wall thickening. The patient was given 1 amp of D50, 3 L of LR, and started on dexamethasone. When the patient's blood pressure send the decreased to below 65 MAP after fluid resuscitation, Levophed was started. Central line and arterial line were placed. 02/03/25: Patient was seen and assessed at bedside. No longer hypothermic after midnight. Patient had decreased urine output, about 5 cc/h. Levophed increased this morning due to low MAP. On exam, alert and hide tracking but not conversational. Open wound at thoracic spine does show signs of worsening infection. Will obtain MRI thoracic spine to rule out potential abscess or discitis. Sodium and chloride continue to be elevated, started on D5W maintenance. Continues to have high anion gap metabolic acidosis. Urine electrolytes showed elevated urine anion gap of 24, likely secondary to RTA. Started on Bicitra 30 mg 3 times daily. Follow-up renal panel. Exam Vital Signs Temp Pulse Resp BP Pulse Ox O2 Del Method 98.2 F 108 H 29 H 91/52 L 99 Room Air 02/03/25 08:00 02/03/25 10:01 02/03/25 10:01 02/03/25 10:01 02/03/25 10:01 02/03/25 08:00 Narrative Exam Physical Exam General: Awake and in no acute distress. Eye tracking, answered hello. Unable to answer yes or no questions or follow commands. HEENT: Normocephalic, atraumatic, mucous membranes moist. Right IJ central line. Heart: Irregular rate and rhythm, normal S1 and S2, no murmurs appreciated. Lungs: Clear to auscultation with no wheezing or crackles. Abdomen: Soft, nondistended, nontender, positive bowel sounds. No guarding or rebound tenderness. MSK: Large open wound at thoracic spine, no pus or drainage, wound clean dry and intact. Mild erythema around borders. Coccygeal pressure ulcer, minimal bleeding but no purulent drainage. : Tenorio in place. Neurologic: AxO x0. Not following verbal commands, unable to assess strength. Extremities: No edema. Skin: No rash or ecchymoses. Dry and flaky. Diffuse and scattered scab noted throughout the body, most prominent numerous on bilateral upper extremities and chest. Objective Labs 02/04/25 04:21 02/04/25 04:21 Labs: Laboratory Results - last 24 hr 02/02/25 02/02/25 02/02/25 10:45 12:46 14:24 WBC 3.0 L RBC 2.71 L Hgb 7.8 L Hct 24.8 L MCV 92 MCH 28.8 MCHC 31.5 RDW Std Deviation 60.4 H Plt Count 93 L Neut % (Auto) 73 Lymph % (Auto) 15 [place] % (Auto) 3 Eos % (Auto) 8 Baso % (Auto) 0 Neut # (Auto) 2.2 Lymph # (Auto) 0.4 L [place] # (Auto) 0.1 Eos # (Auto) 0.2 Baso # (Auto) 0.0 Immature Gran # (Auto) 0.03 H Absolute Nucleated RBC 0.03 H Immature Gran % 1 H Nucleated RBC % 1 H PT 15.1 H INR 1.5 H APTT 41.9 H D VBG pH VBG pCO2 VBG pO2 VBG O2 Sat (Gretel) VBG Base Excess Sodium 151 H Potassium 5.4 H Chloride 123 H* Carbon Dioxide 17.3 L Anion Gap 11 BUN 35 H Creatinine 2.3 H Estim Creat Clear Calc 36.1 L eGFR 31 L BUN/Creatinine Ratio 15 Glucose 54 L Calculated Osmolality 305 H Lactic Acid 2.8 H Calcium 8.6 Corrected Calcium 9.9 Phosphorus 5.6 H Magnesium 1.7 Total Bilirubin 0.4 AST 58 H ALT 45 Alkaline Phosphatase 225 H Ammonia Lactate Dehydrogenase 234 Total Creatine Kinase 87 Troponin I 0.152 H* 0.140 H* B-Natriuretic Peptide 193 H Total Protein 4.8 L Albumin 2.4 L Globulin 2.4 Albumin/Globulin Ratio 1.0 L Lipase 56 H Procalcitonin 0.24 TSH Free T4 Ur Collection Type Urine Color Urine Clarity Urine pH Ur Specific [place] Urine Protein Urine Glucose (UA) Urine Ketones Urine Blood Urine Nitrite Urine Bilirubin Urine Urobilinogen (Auto) Ur Leukocyte Esterase Urine RBC Urine WBC Ur Squamous Epith Cells Amorphous Crystals Urine Bacteria Urine Yeast (Budding) Ur Culture Indicated? 02/02/25 02/02/25 02/02/25 14:34 16:18 19:07 WBC RBC Hgb Hct MCV MCH MCHC RDW Std Deviation Plt Count Neut % (Auto) Lymph % (Auto) [place] % (Auto) Eos % (Auto) Baso % (Auto) Neut # (Auto) Lymph # (Auto) [place] # (Auto) Eos # (Auto) Baso # (Auto) Immature Gran # (Auto) Absolute Nucleated RBC Immature Gran % Nucleated RBC % PT INR APTT VBG pH 7.38 VBG pCO2 30 L VBG pO2 65 H VBG O2 Sat (Gretel) 92 L VBG Base Excess -7 L Sodium 150 H Potassium 4.8 D Chloride 122 H* Carbon Dioxide 16.4 L Anion Gap 12 BUN 27 H Creatinine 2.1 H Estim Creat Clear Calc 39.6 L eGFR 35 L BUN/Creatinine Ratio 13 Glucose 50 L Calculated Osmolality 300 H Lactic Acid 2.8 H Calcium 8.5 Corrected Calcium 9.9 Phosphorus 5.1 Magnesium Total Bilirubin AST ALT Alkaline Phosphatase Ammonia Lactate Dehydrogenase Total Creatine Kinase Troponin I B-Natriuretic Peptide Total Protein Albumin 2.2 L Globulin Albumin/Globulin Ratio Lipase Procalcitonin TSH Free T4 Ur Collection Type Clean Catch Urine Color Yellow Urine Clarity Turbid A Urine pH 5.5 Ur Specific [place] 1.017 Urine Protein Trace Urine Glucose (UA) Negative Urine Ketones Negative Urine Blood 1+ A Urine Nitrite Negative Urine Bilirubin Negative Urine Urobilinogen (Auto) Negative Ur Leukocyte Esterase Positive Urine RBC 23 H Urine WBC 172 H Ur Squamous Epith Cells < 1 Amorphous Crystals Present A Urine Bacteria Rare Urine Yeast (Budding) Present A Ur Culture Indicated? Yes 02/02/25 02/03/25 02/03/25 23:13 01:15 05:35 WBC 5.5 D RBC 2.48 L Hgb 7.4 L Hct 22.8 L MCV 92 MCH 29.8 MCHC 32.5 RDW Std Deviation 61.5 H Plt Count 132 L D Neut % (Auto) 94 H Lymph % (Auto) 4 L [place] % (Auto) 1 Eos % (Auto) 0 Baso % (Auto) 0 Neut # (Auto) 5.2 Lymph # (Auto) 0.2 L [place] # (Auto) 0.1 Eos # (Auto) 0.0 Baso # (Auto) 0.0 Immature Gran # (Auto) 0.05 H Absolute Nucleated RBC 0.13 H Immature Gran % 1 H Nucleated RBC % 2 H PT INR APTT VBG pH VBG pCO2 VBG pO2 VBG O2 Sat (Gretel) VBG Base Excess Sodium 150 H Potassium 5.4 H D Chloride 123 H* Carbon Dioxide 15.7 L Anion Gap 11 BUN 32 H Creatinine 2.4 H Estim Creat Clear Calc 34.6 L eGFR 30 L BUN/Creatinine Ratio 13 Glucose 70 L Calculated Osmolality 302 H Lactic Acid 1.4 1.5 1.5 Calcium 8.3 Corrected Calcium 9.6 Phosphorus 5.2 H Magnesium 1.5 L Total Bilirubin 0.3 AST 54 H ALT 43 Alkaline Phosphatase 223 H Ammonia 11 Lactate Dehydrogenase Total Creatine Kinase Troponin I B-Natriuretic Peptide Total Protein 4.8 L Albumin 2.4 L Globulin 2.4 Albumin/Globulin Ratio 1.0 L Lipase Procalcitonin TSH 9.35 H D Free T4 0.61 L Ur Collection Type Urine Color Urine Clarity Urine pH Ur Specific [place] Urine Protein Urine Glucose (UA) Urine Ketones Urine Blood Urine Nitrite Urine Bilirubin Urine Urobilinogen (Auto) Ur Leukocyte Esterase Urine RBC Urine WBC Ur Squamous Epith Cells Amorphous Crystals Urine Bacteria Urine Yeast (Budding) Ur Culture Indicated? 02/03/25 02/03/25 08:39 09:35 WBC RBC Hgb Hct MCV MCH MCHC RDW Std Deviation Plt Count Neut % (Auto) Lymph % (Auto) [place] % (Auto) Eos % (Auto) Baso % (Auto) Neut # (Auto) Lymph # (Auto) [place] # (Auto) Eos # (Auto) Baso # (Auto) Immature Gran # (Auto) Absolute Nucleated RBC Immature Gran % Nucleated RBC % PT INR APTT VBG pH VBG pCO2 VBG pO2 VBG O2 Sat (Gretel) VBG Base Excess Sodium Potassium Chloride Carbon Dioxide Anion Gap BUN Creatinine Estim Creat Clear Calc eGFR BUN/Creatinine Ratio Glucose Calculated Osmolality Lactic Acid 3.8 H Calcium Corrected Calcium Phosphorus Magnesium Total Bilirubin AST ALT Alkaline Phosphatase Ammonia < 10 L Lactate Dehydrogenase Total Creatine Kinase Troponin I B-Natriuretic Peptide Total Protein Albumin Globulin Albumin/Globulin Ratio Lipase Procalcitonin TSH Free T4 Ur Collection Type Urine Color Urine Clarity Urine pH Ur Specific [place] Urine Protein Urine Glucose (UA) Urine Ketones Urine Blood Urine Nitrite Urine Bilirubin Urine Urobilinogen (Auto) Ur Leukocyte Esterase Urine RBC Urine WBC Ur Squamous Epith Cells Amorphous Crystals Urine Bacteria Urine Yeast (Budding) Ur Culture Indicated? ABG Interpretation ABG results: 02/02/25 19:07 VBG pH 7.38 VBG pCO2 30 L VBG pO2 65 H VBG Base Excess -7 L Quality Measures Quality Measures VTE prophylaxis and sepsis Current suspected stage: septic shock (LA >4 and/or hypotension) Sepsis reassessment completed at (date): 02/03/25 Sepsis reassessment completed at (time): 08:00 Possible source: pulmonary, genitourinary and skin/soft tissue Blood cultures ordered: yes Antibiotic ordered: Yes Assessment & Plan Assessment Current Active Medications: Generic Name Dose Route Start Last Admin Trade Name Freq PRN Reason Stop Dose Admin Dextrose 50 ml 02/03/25 00:23 02/03/25 05:40 Dextrose 50%-Water Inj 50 Ml Syringe IVP 03/05/25 00:22 50 ml Q30MIN PRN Administration HYPOGLYCEMIA Heparin Sodium (Porcine) 5,000 unit 02/02/25 22:00 02/02/25 21:48 Heparin Sod Inj 5000 Unit/Ml Vial SC 02/16/25 21:59 5,000 unit On Hold: 02/03/25 00:25 Q8HR HANNAH Administration Norepinephrine Bitartrate 16 mg in 250 mls @ 4.176 mls/hr 02/02/25 17:11 02/03/25 10:00 Levophed In Ns 16mg/250ml IV 03/04/25 17:10 0.17 mcg/kg/min .Q24H PRN 14.198 mls/hr PER protocol Titration Protocol 0.05 MCG/KG/MIN Cefepime HCl 2 gm/ Sodium 50 mls @ 100 mls/hr 02/02/25 20:09 02/03/25 08:47 Chloride IV 02/09/25 21:00 Infused Q12HR HANNAH Infusion Magnesium Sulfate 4 gm in 50 mls @ 12.5 mls/hr 02/03/25 07:07 02/03/25 07:42 Magnesium Sulfate Ivpb IV 02/03/25 11:06 12.5 mls/hr X1 ONE Administration Vancomycin/Sodium Chloride 100 mls @ 120 mls/hr 02/03/25 10:00 02/03/25 09:56 Vancomycin/Ns 500 Mg Ivpb IV 02/10/25 09:59 120 mls/hr QDAY@1000 HANNAH Administration Protocol Dexmedetomidine/Sodium Chloride 400 mcg in 100 mls @ 4.445 mls/hr 02/03/25 10:05 Precedex Ivpb IV 03/05/25 10:04 .[id number] PRN Per PROTOCOL Protocol 0.2 MCG/KG/HR Dextrose 1,000 mls @ 100 mls/hr 02/03/25 10:15 02/03/25 10:24 D5w IV 03/05/25 10:14 100 mls/hr .Q10H HANNAH Administration Ondansetron HCl 4 mg 02/02/25 11:01 Ondansetron Inj 2 Mg/Ml Inj 2 Ml IVP 03/04/25 11:00 Q6HR PRN NAUSEA OR VOMITING Pantoprazole Sodium 40 mg 02/02/25 19:45 02/03/25 08:17 Pantoprazole Inj 40 Mg Vial IVP 03/04/25 19:44 40 mg QDAY HANNAH Administration Pharmacy Consult 1 each 02/03/25 06:32 Vancomycin Pharmacy To Dose 1 Each Each IV 03/04/25 18:44 QDAY PRN PROTOCOL Plan Patient is a 64-year-old male with history of atrial fibrillation (was previously on Eliquis), CAD status post multiple stents, CVA, wheelchair-bound, CKD, Castorena's esophagus, esophageal ulcers with past upper GI bleed, and chronic osteomyelitis of the lower thoracic spine who presented to [facility] ED on 02/02 from [facility] for altered mental status. The patient was admitted to the ICU for management of shock requiring vasopressors. NEURO #Acute encephalopathy DDx: Metabolic derangement, distributive shock Diagnostic workup: - Patient noted to have a sudden change in behavior side time on 01/31 where the patient became much less responsive and did not eat, progressing into being completely unresponsive - CT head 02/02 shows bilateral chronic subdural hygromas with mild mass effect upon the right lateral ventricle system with shift of frontal horns to the left by 3 mm - EEG completed 01/22 negative for epileptiform discharges -WBC 3.0 -> 5.5 Treatment: -On IV Vanco, Zosyn (02/02? -D5W maintenance fluids for hypernatremia Treatment follow-up: - Daily neuroassessment #Bilateral subdural hygromas, chronic Diagnostic workup: CT head 02/02 shows bilateral chronic subdural hygromas with mild mass effect upon the right lateral ventricle system with shift of frontal horns to the left by 3 mm Treatment: - No active management at this time Treatment follow-up: - Follow-up outpatient CARDIO #Shock #Hypothermia Likely distributive, low suspicion for cardiogenic Diagnostic workup - Patient presented with blood pressure of 83/60, which was initially responsive to 3 L of IVF bolus, but later decompensated and required Levophed to maintain MAP above 65 in the ED Patient noted to have a temperature of 86 ?F in the ED on presentation and had a fever of 102 ?F at his [facility]F - Patient was recently admitted to [facility] ICU for similar presentation, which had improved with IV antibiotics and hydrocortisone - Patient does have chronic osteomyelitis with a significantly large stage IV ulcer in lower thoracic region to which the patient is only able to tolerate oral antibiotics as the patient has self removed PICC lines in the past for IV antibiotics - Patient also has history of ESBL Enterococcus faecalis in urine - UA showed turbid urine with positive leukocyte esterase, nitrite negative, WBC 172, yeast, rare bacteria. - NICOM at bedside showed increased cardiac output and decreased systemic vascular resistance, unlikely cardiogenic shock Treatment: - Martine oliva - On Levophed, MAP goal above 65 - Vancomycin and Zosyn (02/02? Treatment follow-up: -Follow-up renin, aldosterone, and 17-hydroxyprogesterone - Follow-up urine and blood cultures - Wean pressor as tolerated #Atrial fibrillation Diagnostic workup: - Patient has a history of atrial fibrillation and previously took Eliquis, but this was put on hold from the patient's previous hospital admission until the patient could be re-evaluated outpatient Treatment: - Continue to hold anticoagulation Treatment follow-up: - Follow-up cardiology outpatient #Elevated troponins (resolved) #NSTEMI type II (resolved) PULM # Bilateral pleural effusions (L>R) with compressive atelectasis DDx: Healthcare facility associated pneumonia vs aspiration Diagnostic workup: - As noted on CT chest/abdomen/pelvis taken 02/02 - Patient breathing comfortably on room air without increased work of breathing on admission Treatment: - Vancomycin and Zosyn (02/02? Treatment follow-up: - If patient desaturates, consider left thoracentesis GI #History of Castorena's esophagus #History of esophageal ulcers with upper GI bleed Diagnostic workup: - EGD 01/22 showed esophageal ulcers without active bleeding - Colonoscopy performed 01/24 showed internal hemorrhoids and mild diverticulosis in the sigmoid colon and descending colon Treatment: - Protonix 40 mg daily Treatment follow-up: - Continue to monitor CBC for possible bleed # Transaminitis (improving) # ?Primary hepatocellular disease Diagnostic workup: - AST 58 -> 54 - ALT within normal limits but elevated compared to previous hospitalization - Alk phos 225 -> 223 - Abdominal ultrasound showed absent gallbladder with normal common bile duct however liver noted to be lobular in contour, suspect primary hepatocellular disease. -Prolonged PTT, INR, PT Treatment: -No active treatment at this time Treatment follow-up: -Follow-up hepatitis panel NEPHRO #CKD stage IV Diagnostic workup - Creatinine on admission 2.3, noted to be downtrending compared to previous creatinine values - Possible ARIA as patient's does report poor urine output on 02/02 Treatment: - Avoid nephrotoxic drugs - Renally dose medications #Lactic acidosis (improving) Diagnostic workup: - Lactic acid 2.8 -> 1.5 --> 3.8 -> 3.3 - Likely up trended secondary to increased pressor support this morning Treatment: - Manage underlying shock with IVF and vasopressors - Zosyn and Vancomycin Treatment follow-up: - Trend lactic every 3 hour #Bilateral renal cysts #Atrophic left kidney Diagnostic workup - As noted on CT chest/abdomen/pelvis on 02/02 Treatment: -No active treatment at this time Treatment follow-up: - Follow up outpatient URO #Indwelling tenorio catheter Diagnostic workup: - Patient presented with tenorio catheter placed, noted to have been planned for discontinuation after the patient completed bladder exercises - Possible source of infection given bladder was contracted around tenorio catheter on CT chest/abdomen/pelvis taken 02/02 - UA showed turbid urine with positive leukocyte esterase, nitrite negative, WBC 172, yeast, rare bacteria. Treatment: -Tenorio in place -IV antibiotics as above Treatment follow-up: - Urine cultures collected 02/02, pending - Will reassess need for Tenorio catheter and possibly exchange catheter HEME #Pancytopenia (improving) Likely secondary to shock Diagnostic workup: -On admission, WBC 3.0, RBC 2.71, hemoglobin 7.8, and platelet 93 -02/03: WBC improved, improved, hemoglobin 7.4. Low suspicion for active GI bleed at this time. No melena or hematemesis. Treatment: -No active treatment at this time Treatment follow-up: - Will consider further workup for myelodysplastic syndromes - Transfuse if hemoglobin less than 7 #Electrolyte abnormalities #Hypernatremia #Hyperkalemia #Hyperchloremia Diagnostic workup: - Sodium 151, potassium 5.4, and chloride 123 on admission - Likely secondary to dehydration as the patient has not had any oral intake for the past 2 days prior to admission - Free water deficit 3.5 L on admission -NICOM at bedside shows the patient is not fluid responsive -Urine electrolytes showed high urine anion gap, suggestive of RTA Treatment: - S/p 3 L of IVF hydration in ED -D5W maintenance fluids -Bicitra 30 mg 3 times daily Treatment follow-up: - Repeat renal panel in the evening #Normal anion gap metabolic acidosis #HAGMA #RTA Diagnostic workup: - Albumin corrected anion gap 14.7, suggesting non-anion gap metabolic acidosis on admission -Repeat renal panel 02/03 showed bicarb 14.5, anion gap 20, lactic 3.3 -Urine electrolytes showed high urine anion gap, suggestive of RTA Treatment: -Bicitra 30 mg 3 times daily Treatment follow-up: - Repeat renal panel in the evening ENDO No active problems ID #History of Enterococcus faecalis in urine #History of chronic osteomyelitis T12-L2 Diagnostic workup: - Patient does have a history of Enterococcus faecalis in urine and chronic osteomyelitis with previous wound cultures growing pansensitive MSSA - MRI lumbar spine 12/15/2024 notes osteomyelitis in T12-L2, patient had previously pulled out PICC line during past hospitalizations, so was recently discharged with oral antibiotics Treatment: - IV antibiotics as above SKIN #Stage IV ulcer, lower back, T11-T12 Diagnostic workup - Lower back ulcer (on admission estimate size 5 cm x 3 cm x 0.5 cm) with exposure to subcutaneous tissue, slight bloody discharge without expression of pus noted on admission - Patient does have a history of a chronic stage IV ulcer in his mid back, possible source of chronic osteomyelitis during previous admissions Treatment: - Wound care referral - Keep patient on his sides -Antibiotics as above Treatment follow-up: - Monitor size and characteristics of wound daily, if worsening consider wound culture and referral to general surgery for debridement - Follow-up MRI thoracic #Multiple scattered scabs Diagnostic workup: -On exam, patient has multiple diffuse and scattered scabs noted throughout the body, most numerous and prominent on bilateral upper extremities and chest - Likely secondary to scratching Treatment: - No active treatment at this time as patient is not scratching anymore Treatment follow-up: - Consider resolve or topical steroid if patient resumes scratching ICU Health maintenance: Mechanical ventilation: No Sedation: No Diet: NPO, NG tube DVT prophylaxis: Heparin SQ GI prophylaxis: Protonix Tenorio: Yes Lines: PIV, right IJ central line, left radial arterial line Antibiotics: Vancomycin, Zosyn CODE STATUS: Full Patient plan of care was discussed with the senior resident, Dr. Ness, and attending physician, Dr. Arnold. Lashanda Torres DO, PGY-1 Attending Provider Attestation/Addendum pt seen and examined, d/w resident team. in brief this is a 64yo M admitted to the ICU for septic shock . HE is well known to the service. there is a long standing thoracic decubitus ulcer over his spine which has chronic osteo. This time he presented to the ER for AMS that was felt to be due to sepsis. He was given IVF and then started on vasopressors. He remains on abx and cx are all pending. Will try and obtain MRI of spine to look for discitis/oste and pt may require bone biopsy to guide tx. He has A/CKD. There is some hyper natremia due to lack of free water. A non gap acidosis is present and urine lytes will be sent for further eval. Overall this pt has a very poor jail prognosis. will need ongoing [facility] d/w family case d/w ICU Team labs, imaging, records reviewed ~38ccmin required for eval, exam, review, intervention, discussion and formulation of POC for this critically ill pt with septic shock at high risk for further and ongoing decompensation
[2025-02-03 11:18] LABS: Base Excess, Venous -10 (-3-3); O2 Saturation, Venous 97 % (96-97); PCO2, Venous 23 mmHg (36-56); PO2, Venous 81 mmHg (15-58); pH, Venous 7.40 (7.33-7.66)
[2025-02-03 11:42] LABS: Albumin, Serum 2.3 gm/dL (3.4-4.8); Anion Gap 14 (7-16); BUN/Creatinine Ratio 13 Ratio (12-20); Blood Urea Nitrogen 33 mg/dL (9-23); Calcium 8.5 mg/dL (8.3-10.6); Calcium (Corrected) 9.9 mg/dL (8.5-10.1); Chloride 124 mMol/L (98-107); Creatinine (Component) 2.6 mg/dL (0.6-1.3); Estimated Creatinine Clearance 31.9 mL/min (>60); Glucose 88 mg/dL (74-106); Osmolality,Calculated 307 (275-295); Phosphorous 5.1 mg/dL (2.4-5.1); Potassium 4.8 mMol/L (3.4-5.1); Sodium 152 mMol/L (136-145); eGFR 27 See Note
--- NOTE | 2025-02-03 11:44 | XR_ITS ---
EXAMINATION: AP chest single view TECHNIQUE: AP portable chest single view Date and time: February 03, 2025, 12 0 4:00 p.m., comparison February 02, 2025 INDICATIONS: Post orogastric tube placement. FINDINGS: Bilateral perihilar left basilar pneumonia. Right internal jugular central line tip right atrium Orogastric tube tip distal stomach Mild vascular congestion IMPRESSION: Bilateral perihilar left basilar pneumonia Orogastric tube in stomach satisfactory position
[2025-02-03 11:46] LABS: Chloride,Urine Random 59.5 mMol/L (55.0-125.0); Creatinine,Random Urine 63 mg/dL (30-125); Potassium,Urine Random 23 mMol/L (12-62); Sodium,Urine Random 59.9 mMol/L (20.0-110.0)
[2025-02-03 11:47] LABS: Carbon Dioxide 14.5 mMol/L (20.0-31.0)
[2025-02-03 12:09] LABS: Reflex Lactate? Y
--- NOTE | 2025-02-03 12:23 | PC.SS ---
64YO Male, Reason for Visit: ARIA Patient unable to provide information due to current state. Significant Other (SO) Sheila Watkins contacted to obtain information. Role and purpose of today?s contact was explained to patient?s SO. Patient?s primary medical surrogate decisionmaker is his SO Sheila Watkins [phone]. Patient?s SO explained patient requires maximum assistance with ADLs and is non-ambulatory. Patient utilizes oxygen at [facility] as needed. Patient returning to [facility] when medically clear. Transportation will be needed. SO has AD with her, she was encouraged to provide [facility] copy. PCP: Wilfredo Squires, last appt. was in November 2024. PHARMACY: [facility]. DISCHARGE PLAN: [facility], transportation needed. ALT. DECISIONMAKER: CAR Josepha [phone].
--- NOTE | 2025-02-03 13:12 | PC.RT ---
pt unable to comply with sputum induction at this time, unable to collect sputum sample, aware.
[2025-02-03 13:14] LABS: Lactic Acid, 3 HR 3.3 mMol/L (0.4-2.0)
[2025-02-03] MEDS: SOD POLYSTYRENE SULFON SUSP 15 GM/60 ML BTL 30 GM NG (15:04)
[2025-02-03] MEDS: Norepinephrine/NS 16mg/250ml 16 MG/250 ML BAG 12.528 MG IV (16:55)
[2025-02-03] MEDS: CITRIC ACID/SODIUM CITR 15 ML UDC (BICITRA) 30 ML NG ×2 (19:31→20:58)
[2025-02-03] MEDS: HEPARIN SOD INJ 5000 UNIT/ML VIAL SC (21:01)
[2025-02-03 21:36] LABS: Albumin, Serum 2.3 gm/dL (3.4-4.8); Anion Gap 12 (7-16); BUN/Creatinine Ratio 13 Ratio (12-20); Blood Urea Nitrogen 35 mg/dL (9-23); Calcium 8.7 mg/dL (8.3-10.6); Calcium (Corrected) 10.1 mg/dL (8.5-10.1); Carbon Dioxide 15.6 mMol/L (20.0-31.0); Chloride 122 mMol/L (98-107); Creatinine (Component) 2.7 mg/dL (0.6-1.3); Estimated Creatinine Clearance 30.7 mL/min (>60); Glucose 125 mg/dL (74-106); Osmolality,Calculated 307 (275-295); Phosphorous 5.7 mg/dL (2.4-5.1); Potassium 4.9 mMol/L (3.4-5.1); Sodium 150 mMol/L (136-145); eGFR 26 See Note
[2025-02-03] MEDS: ALBUMIN HUMAN-KJDA 25% IVPB 25 GM/100 ML BTL IV (22:09)
[2025-02-03] MEDS: Sodium Bicarb Inj 8.4% SYR 50 ML SYRINGE IV ×2 (22:09→22:58)
[2025-02-03] MEDS: Magnesium Sulfate 2 GM Ivpb 2 GM/50 ML BAG IV (22:58)
--- NOTE | 2025-02-03 23:37 | XR_ITS ---
EXAMINATION: AP chest single view TECHNIQUE: AP portable semiupright chest single view Date and time: February 03, 2025, 11:55 p.m., comparison February 03, 2025 INDICATIONS: Increasingly difficult breathing FINDINGS: Interval significant left lung pneumonia Mild enlargement cardiac contour with prominent vascular congestion Orogastric tube tip in the distal stomach Reduced inspiratory effort IMPRESSION: Significant left lung pneumonia Suspicious for mild associated heart failure Right internal jugular central line tip at junction IVC and right atrium
[2025-02-03 23:57] LABS: Base Excess -5 (-3-3); HCO3 19 mEq/L (20-26); Inspired O2, VO2 Liters 5 L/min; Inspired Oxygen, FIO2 21 %; O2 Saturation 95 % (91-98); PCO2 26 mmHg (32.0-48.0); PO2 64 mmHg (83-108); pH, Arterial 7.46 (7.35-7.45)
[2025-02-03 23:59] LABS: Allen Test Not Performed; Puncture Site Arterial Line
[2025-02-04] VITALS (114 sets, daily range): BP systolic 75–179; BP diastolic 44–93; PULSE 60–132; RESP 16–99; TEMP 36.1–37.2; O2SAT 78–100
[2025-02-04] MEDS: BUMETANIDE INJ 0.25 MG/ML VIAL 4 ML 1 MG IVP ×2 (00:14→09:07)
[2025-02-04 00:36] LABS: Lactate (Lactic Acid) 3.0 mMol/L (0.4-2.0)
[2025-02-04 00:52] LABS: Hematocrit 18.1 % (41.0-53.0); Hemoglobin 5.8 g/dL (13.5-16.0)
[2025-02-04 01:12] LABS: Albumin, Serum 2.6 gm/dL (3.4-4.8); Anion Gap 16 (7-16); BUN/Creatinine Ratio 15 Ratio (12-20); Blood Urea Nitrogen 43 mg/dL (9-23); Calcium 8.2 mg/dL (8.3-10.6); Calcium (Corrected) 9.3 mg/dL (8.5-10.1); Carbon Dioxide 17.2 mMol/L (20.0-31.0); Chloride 121 mMol/L (98-107); Creatinine (Component) 2.8 mg/dL (0.6-1.3); Estimated Creatinine Clearance 29.6 mL/min (>60); Glucose 103 mg/dL (74-106); Osmolality,Calculated 316 (275-295); Phosphorous 5.5 mg/dL (2.4-5.1); Potassium 5.6 mMol/L (3.4-5.1); Sodium 154 mMol/L (136-145); eGFR 25 See Note
[2025-02-04] MEDS: DEXTROSE 50%-WATER INJ 50 ML SYRINGE IVP (01:51)
[2025-02-04] MEDS: INSULIN HUM REGULAR 1 UNIT/0.01 ML (PER UNIT) 5 UNIT IV (01:55)
[2025-02-04] MEDS: CALCIUM GLUCONATE 10% INJ 1 GM/10 ML VIAL IV (01:58)
[2025-02-04 03:34] LABS: Reflex Lactate? Y
[2025-02-04 05:05] LABS: Lactic Acid, 3 HR 3.1 mMol/L (0.4-2.0)
[2025-02-04 05:28] LABS: Basophils # (Auto) 0.0 Thou/mm3 (0.0-0.2); Basophils % (Auto) 0 % (0-2.5); Eosinophils # (Auto) 0.1 Thou/mm3 (0.0-0.5); Eosinophils % (Auto) 1 % (0-10); Hematocrit 22.9 % (41.0-53.0); Immature Granulocytes Auto 0.04 Thou/mm3 (0.00-0.00); Lymphocytes # (Auto) 0.7 Thou/mm3 (1.0-4.8); Lymphocytes % (Auto) 8 % (10-50); Mean Corpuscular HGB Conc 31.9 g/dl (31.0-37.0); Mean Corpuscular Hemoglobin 27.8 pg (25.0-35.0); Mean Corpuscular Volume 87 fL (80-100); Monocytes # (Auto) 0.5 Thou/mm3 (0.0-0.8); Monocytes % (Auto) 6 % (0-12); Neutrophils # (Auto) 7.2 Thou/mm3 (1.8-7.7); Neutrophils % (Auto) 85 % (37-80); Nucleated Red Blood Cell # 0.04 Thou/mm3 (0.00-0.00); Nucleated Red Blood Cell % 1 /100 WBC (0); Platelet Count 117 Thou/mm3 (140-440); RDW Standard Deviation 60.7 fL (35.1-43.9); Red Blood Count 2.63 Miln/mm3 (4.50-5.90); White Blood Count 8.5 Thou/mm3 (3.8-10.6)
[2025-02-04 05:35] LABS: Hemoglobin 7.3 g/dL (13.5-16.0)
[2025-02-04 05:50] LABS: Alanine Aminotransferase 66 U/L (10-49); Albumin, Serum 2.6 gm/dL (3.4-4.8); Albumin/Globulin Ratio 1.3 (1.2-2.2); Alkaline Phosphatase 235 U/L (46-116); Anion Gap 15 (7-16); Aspartate Amino Transferase 79 U/L (0-34); BUN/Creatinine Ratio 14 Ratio (12-20); Bilirubin,Total 0.4 mg/dL (0.3-1.2); Blood Urea Nitrogen 38 mg/dL (9-23); Calcium 9.2 mg/dL (8.3-10.6); Calcium (Corrected) 10.3 mg/dL (8.5-10.1); Carbon Dioxide 17.7 mMol/L (20.0-31.0); Chloride 122 mMol/L (98-107); Creatinine (Component) 2.8 mg/dL (0.6-1.3); Estimated Creatinine Clearance 29.6 mL/min (>60); Globulin 2.0 gm/dL (2.3-3.5); Glucose 70 mg/dL (74-106); Magnesium 2.4 mg/dL (1.6-2.6); Osmolality,Calculated 314 (275-295); Phosphorous 5.2 mg/dL (2.4-5.1); Potassium 4.2 mMol/L (3.4-5.1); Sodium 155 mMol/L (136-145); Total Protein 4.6 gm/dL (5.7-8.2); eGFR 25 See Note
--- NOTE | 2025-02-04 08:12 | ESPR_ITS ---
Documentation for date of: 02/04/25 Subjective Subjective Interval history: This patient is a 64-year-old male with history of atrial fibrillation (was previously on Eliquis), CAD status post multiple stents, CVA, wheelchair-bound, CKD, Castorena's esophagus, esophageal ulcers with past upper GI bleed, and chronic osteomyelitis of the lower thoracic spine who presented to [facility] ED on 02/[address] [facility] for altered mental status. The patient was admitted to the ICU for management of shock requiring vasopressors. This patient is very well-known to [facility] and was recently discharged on 01/27 after presenting very similarly. At that time, the patient was admitted to ICU for management of shock requiring vasopressors, was found to have small and stable subdural hemorrhage which prompted neurology to recommend holding the patient's anticoagulation, and discharged on his home regimen of doxycycline and Keflex which was prescribed until per ID consultation from her previous hospitalization for the patient's chronic osteomyelitis. It is unclear how much mental capabilities the patient recovered as the patient's baseline and resolved the patient having limited vocabulary, but is able to eat on his own. The patient remained stable for a few days until around 01/31 when the noticed that the patient became much less responsive and would not eat his food. On 02/02 in the morning, nursing staff noted that the patient had hypoglycemia with a blood glucose of 55, hypotension, and a fever of 102 ?F. According to the patient's , the patient was seemingly tensed up and appeared to be silently screaming the night before. The believes that the patient is in pain and is trying to communicate, but is unable to. Additionally, the patient's notes that the patient's arms became swollen, but the swelling has since decreased with some residual swelling in the patient's right arm. Of note, the patient was made limited code during the previous hospitalization, but the patient's has revoked that and made the patient full code for this hospitalization. The patient's has signed a POLST form reflecting this decision. The patient was unable to provide any history as he was unresponsive and seemingly staring off into space with random jerking motions. ED course: Patient presented with vital significant for blood pressure of 83/60 and temperature of 86 ?F. Patient was given an amp of D50 due to blood glucose being 54 on initial evaluation. Initial labs were significant for WBC 3.0, hemoglobin 7.8, platelets 93, INR 1.5, sodium 151, potassium 5.4, chloride 123, bicarb 17.3, creatinine 2.3, AST 58, alk phos 225, and lactic acid of 2.8. Relevant labs within normal limits include procalcitonin and bilirubin of 0.4. Urinalysis was positive for leukocyte esterases, 172 WBC, and rare urine bacteria. CT head shows bilateral chronic subdural hygromas while CT chest/abdomen versus pelvis shows bibasilar pneumonia, severely atrophic left kidney, and urinary bladder contracted around a Tenorio catheter with urinary bladder wall thickening. The patient was given 1 amp of D50, 3 L of LR, and started on dexamethasone. When the patient's blood pressure send the decreased to below 65 MAP after fluid resuscitation, Levophed was started. Central line and arterial line were placed. 02/03/25: Patient was seen and assessed at bedside. No longer hypothermic after midnight. Patient had decreased urine output, about 5 cc/h. Levophed increased this morning due to low MAP. On exam, alert and hide tracking but not conversational. Open wound at thoracic spine does show signs of worsening infection. Will obtain MRI thoracic spine to rule out potential abscess or discitis. Sodium and chloride continue to be elevated, started on D5W maintenance. Continues to have high anion gap metabolic acidosis. Urine electrolytes showed elevated urine anion gap of 24, likely secondary to RTA. Started on Bicitra 30 mg 3 times daily. Follow-up renal panel. 02/04/2025: Patient was seen and examined bedside's morning. Patient overnight was having agonal breathing and was placed on high flow nasal cannula and chest x-ray was again assessed as for which showed the patient had some pulmonary edema therefore got Bumex x 1. On assessment today patient did not seem to have more peripheral edema and on auscultation there were decreased breath sounds. Given the findings and the chest x-ray findings as well we will order 1 mg of Bumex x 1. Patient was also found to have a hemoglobin 5.8 which could have been hemodilutional given that he was on D5W, but 1 PRBC was transfused and patient's hemoglobin did uptrend to 7.3, but at this time there are no active signs of bleeding. Patient is also minimally responsive even to sternal rub not withdrawing to pain at this time, but is able to open his eyes, but not tracking. Otherwise patient still on high dose Levophed at 0.13 in the AM. Blood cultures continue to be negative at this time. Kidney function continues to uptrend with minimal urine output. Sodium still uptrending patient was hyperkalemic again overnight at 5.6 and hyperkalemia cocktail was given again. Consulted nephrology, but patient unlikely to be a candidate for HD given that patient is bedbound, also will need nephrology clearance for MRI with contrast of thoracic spine. Continue doxycycline and Zosyn. Added midodrine to help wean off Levo. Exam Vital Signs Temp Pulse Resp BP Pulse Ox O2 Del Method O2 Flow Rate 98.1 F 78 26 H 110/87 H 98 Room Air 15 02/04/25 05:00 02/04/25 07:08 02/04/25 07:08 02/04/25 06:31 02/04/25 06:31 02/03/25 16:01 02/04/25 07:08 FiO2 30 02/04/25 07:08 Narrative Exam Gen: Awake and in no acute distress. Not responding to verbal or painful stimuli, but protecting airway. HEENT: NCAT, EOMI, Pupils reactive ALL, not icteric. External ears normal. No rhinorrhea. Dry mucous membranes. Neck: Supple, full range of motion, no observable masses, No meningeal sign. Lungs: No Respiratory distress, Diminished in ALL lower lobes and worst on L side. CV: irregular rate, no murmur appreciated. Abdomen: Soft, nondistended, No rebound tenderness. MSK: No joint swelling, no redness, peripheral pulses presents, 2+ peripheral edema LE and UE. Large open wound at thoracic spine, no pus or drainage, wound clean dry and intact Skin: Dry/Scaly skin, diffuse scattered scabs throughout body. Neuro: Unable to assess due to patient's encephalopathy Objective Labs 02/05/25 02:47 02/05/25 02:47 Labs: Laboratory Results - last 24 hr 02/03/25 02/03/25 02/03/25 08:39 09:35 11:05 WBC RBC Hgb Hct MCV MCH MCHC RDW Std Deviation Plt Count Neut % (Auto) Lymph % (Auto) [place] % (Auto) Eos % (Auto) Baso % (Auto) Neut # (Auto) Lymph # (Auto) [place] # (Auto) Eos # (Auto) Baso # (Auto) Immature Gran # (Auto) Absolute Nucleated RBC Immature Gran % Nucleated RBC % Puncture Site ABG pH ABG pCO2 ABG pO2 ABG HCO3 ABG O2 Saturation ABG Base Excess VBG pH VBG pCO2 VBG pO2 VBG O2 Sat (Gretel) VBG Base Excess Oxygen Liter Flow FiO2 Sodium Potassium Chloride Carbon Dioxide Anion Gap BUN Creatinine Estim Creat Clear Calc eGFR BUN/Creatinine Ratio Glucose Calculated Osmolality Lactic Acid 3.8 H Calcium Corrected Calcium Phosphorus Magnesium Total Bilirubin AST ALT Alkaline Phosphatase Ammonia < 10 L Total Protein Albumin Globulin Albumin/Globulin Ratio Ur Random Creatinine 63 Ur Random Sodium 59.9 Ur Random Potassium 23 Ur Random Chloride 59.5 Blood Type Antibody Screen Crossmatch Blood Bank Wristband ID 02/03/25 02/03/25 02/03/25 11:09 12:46 20:45 WBC RBC Hgb Hct MCV MCH MCHC RDW Std Deviation Plt Count Neut % (Auto) Lymph % (Auto) [place] % (Auto) Eos % (Auto) Baso % (Auto) Neut # (Auto) Lymph # (Auto) [place] # (Auto) Eos # (Auto) Baso # (Auto) Immature Gran # (Auto) Absolute Nucleated RBC Immature Gran % Nucleated RBC % Puncture Site ABG pH ABG pCO2 ABG pO2 ABG HCO3 ABG O2 Saturation ABG Base Excess VBG pH 7.40 VBG pCO2 23 L VBG pO2 81 H VBG O2 Sat (Gretel) 97 VBG Base Excess -10 L Oxygen Liter Flow FiO2 Sodium 152 H 150 H Potassium 4.8 D 4.9 Chloride 124 H* 122 H* Carbon Dioxide 14.5 L* 15.6 L Anion Gap 14 12 BUN 33 H 35 H Creatinine 2.6 H 2.7 H Estim Creat Clear Calc 31.9 L 30.7 L eGFR 27 L 26 L BUN/Creatinine Ratio 13 13 Glucose 88 125 H Calculated Osmolality 307 H 307 H Lactic Acid 3.3 H Calcium 8.5 8.7 Corrected Calcium 9.9 10.1 Phosphorus 5.1 5.7 H Magnesium Total Bilirubin AST ALT Alkaline Phosphatase Ammonia Total Protein Albumin 2.3 L 2.3 L Globulin Albumin/Globulin Ratio Ur Random Creatinine Ur Random Sodium Ur Random Potassium Ur Random Chloride Blood Type Antibody Screen Crossmatch Blood Bank Wristband ID 02/03/25 02/04/25 02/04/25 23:50 00:10 03:34 WBC RBC Hgb 5.8 L* D Hct 18.1 L* MCV MCH MCHC RDW Std Deviation Plt Count Neut % (Auto) Lymph % (Auto) [place] % (Auto) Eos % (Auto) Baso % (Auto) Neut # (Auto) Lymph # (Auto) [place] # (Auto) Eos # (Auto) Baso # (Auto) Immature Gran # (Auto) Absolute Nucleated RBC Immature Gran % Nucleated RBC % Puncture Site Arterial Line ABG pH 7.46 H ABG pCO2 26 L ABG pO2 64 L ABG HCO3 19 L ABG O2 Saturation 95 ABG Base Excess -5 L VBG pH VBG pCO2 VBG pO2 VBG O2 Sat (Gretel) VBG Base Excess Oxygen Liter Flow 5 FiO2 21 Sodium 154 H Potassium 5.6 H D Chloride 121 H* Carbon Dioxide 17.2 L Anion Gap 16 BUN 43 H Creatinine 2.8 H Estim Creat Clear Calc 29.6 L eGFR 25 L BUN/Creatinine Ratio 15 Glucose 103 Calculated Osmolality 316 H Lactic Acid 3.0 H 3.1 H Calcium 8.2 L Corrected Calcium 9.3 Phosphorus 5.5 H Magnesium Total Bilirubin AST ALT Alkaline Phosphatase Ammonia Total Protein Albumin 2.6 L Globulin Albumin/Globulin Ratio Ur Random Creatinine Ur Random Sodium Ur Random Potassium Ur Random Chloride Blood Type O Positive Antibody Screen NEGATIVE Crossmatch See Detail Blood Bank Wristband ID Yes 02/04/25 04:21 WBC 8.5 D RBC 2.63 L Hgb 7.3 L D Hct 22.9 L MCV 87 MCH 27.8 MCHC 31.9 RDW Std Deviation 60.7 H Plt Count 117 L Neut % (Auto) 85 H Lymph % (Auto) 8 L [place] % (Auto) 6 Eos % (Auto) 1 Baso % (Auto) 0 Neut # (Auto) 7.2 Lymph # (Auto) 0.7 L [place] # (Auto) 0.5 Eos # (Auto) 0.1 Baso # (Auto) 0.0 Immature Gran # (Auto) 0.04 H Absolute Nucleated RBC 0.04 H Immature Gran % 1 H Nucleated RBC % 1 H Puncture Site ABG pH ABG pCO2 ABG pO2 ABG HCO3 ABG O2 Saturation ABG Base Excess VBG pH VBG pCO2 VBG pO2 VBG O2 Sat (Gretel) VBG Base Excess Oxygen Liter Flow FiO2 Sodium 155 H Potassium 4.2 D Chloride 122 H* Carbon Dioxide 17.7 L Anion Gap 15 BUN 38 H Creatinine 2.8 H Estim Creat Clear Calc 29.6 L eGFR 25 L BUN/Creatinine Ratio 14 Glucose 70 L Calculated Osmolality 314 H Lactic Acid Calcium 9.2 Corrected Calcium 10.3 H Phosphorus 5.2 H Magnesium 2.4 Total Bilirubin 0.4 AST 79 H ALT 66 H Alkaline Phosphatase 235 H Ammonia Total Protein 4.6 L Albumin 2.6 L Globulin 2.0 L Albumin/Globulin Ratio 1.3 Ur Random Creatinine Ur Random Sodium Ur Random Potassium Ur Random Chloride Blood Type Antibody Screen Crossmatch Blood Bank Wristband ID ABG Interpretation ABG results: 02/02/25 02/03/25 02/03/25 19:07 11:09 23:50 ABG pH 7.46 H ABG pCO2 26 L ABG pO2 64 L ABG HCO3 19 L ABG O2 Saturation 95 ABG Base Excess -5 L VBG pH 7.38 7.40 VBG pCO2 30 L 23 L VBG pO2 65 H 81 H VBG Base Excess -7 L -10 L Quality Measures Quality Measures VTE prophylaxis and sepsis Current suspected stage: severe sepsis Possible source: pulmonary, genitourinary and skin/soft tissue Blood cultures ordered: yes Antibiotic ordered: Yes Assessment & Plan Assessment Current Active Medications: Generic Name Dose Route Start Last Admin Trade Name Freq PRN Reason Stop Dose Admin Bumetanide 1 mg 02/04/25 08:06 Bumetanide Inj 0.25 Mg/Ml Vial 4 Ml IVP 02/04/25 08:07 X1 ONE Citric Acid/Sodium Citrate 30 ml 02/03/25 19:09 02/03/25 20:58 Citric Acid/Sodium Citr 15 Ml Udc (Bicitra) NG 03/05/25 19:08 30 ml BID HANNAH Administration Dextrose 50 ml 02/03/25 00:23 02/03/25 05:40 Dextrose 50%-Water Inj 50 Ml Syringe IVP 03/05/25 00:22 50 ml Q30MIN PRN Administration HYPOGLYCEMIA Heparin Sodium (Porcine) 5,000 unit 02/02/25 22:00 02/03/25 21:01 Heparin Sod Inj 5000 Unit/Ml Vial SC 02/16/25 21:59 5,000 unit On Hold: 02/04/25 01:22 Q8HR HANNAH Administration Norepinephrine Bitartrate 16 mg in 250 mls @ 4.176 mls/hr 02/02/25 17:11 02/04/25 06:00 Levophed In Ns 16mg/250ml IV 03/04/25 17:10 0.13 mcg/kg/min .Q24H PRN 10.857 mls/hr PER protocol Titration Protocol 0.05 MCG/KG/MIN Cefepime HCl 2 gm/ Sodium 50 mls @ 100 mls/hr 02/02/25 20:09 02/03/25 21:26 Chloride IV 02/09/25 21:00 Infused Q12HR HANNAH Infusion Vancomycin/Sodium Chloride 100 mls @ 120 mls/hr 02/03/25 10:00 02/03/25 09:56 Vancomycin/Ns 500 Mg Ivpb IV 02/10/25 09:59 120 mls/hr QDAY@1000 HANNAH Administration Protocol Dexmedetomidine/Sodium Chloride 400 mcg in 100 mls @ 4.445 mls/hr 02/03/25 10:05 Precedex Ivpb IV 03/05/25 10:04 .[id number] PRN Per PROTOCOL Protocol 0.2 MCG/KG/HR Dextrose 1,000 mls @ 100 mls/hr 02/03/25 10:15 02/03/25 23:45 D5w IV 03/05/25 10:14 0 mls/hr On Hold: 02/03/25 23:54 .Q10H HANNAH Infusion Albumin Human 25 gm in 100 mls @ 100 mls/hr 02/03/25 21:52 02/03/25 22:09 Albuminex 25% Ivpb IV 02/06/25 21:51 100 mls/hr QDAY HANNAH Administration Ondansetron HCl 4 mg 02/02/25 11:01 Ondansetron Inj 2 Mg/Ml Inj 2 Ml IVP 03/04/25 11:00 Q6HR PRN NAUSEA OR VOMITING Pantoprazole Sodium 40 mg 02/04/25 09:00 Pantoprazole Inj 40 Mg Vial IVP 03/06/25 08:59 BID HANNAH Pharmacy Consult 1 each 02/03/25 06:32 Vancomycin Pharmacy To Dose 1 Each Each IV 03/04/25 18:44 QDAY PRN PROTOCOL Plan Patient is a 64-year-old male with history of atrial fibrillation (was previously on Eliquis), CAD status post multiple stents, CVA, wheelchair-bound, CKD, Castorena's esophagus, esophageal ulcers with past upper GI bleed, and chronic osteomyelitis of the lower thoracic spine who presented to [facility] ED on 02/[address] [facility] for altered mental status. The patient was admitted to the ICU for management of shock requiring vasopressors. NEURO #Acute encephalopathy DDx: Metabolic derangement, distributive shock Diagnostic workup: - Patient noted to have a sudden change in behavior side time on 01/31 where the patient became much less responsive and did not eat, progressing into being completely unresponsive - CT head 02/02 shows bilateral chronic subdural hygromas with mild mass effect upon the right lateral ventricle system with shift of frontal horns to the left by 3 mm - EEG completed 01/22 negative for epileptiform discharges -WBC 3.0 -> 5.5 Treatment: -On IV Doxy (02/04-), Cefepime (02/02?) Treatment follow-up: - Daily neuroassessment #Bilateral subdural hygromas, chronic Diagnostic workup: CT head 02/02 shows bilateral chronic subdural hygromas with mild mass effect upon the right lateral ventricle system with shift of frontal horns to the left by 3 mm Treatment: - No active management at this time Treatment follow-up: - Follow-up outpatient CARDIO #Shock #Hypothermia Likely distributive, low suspicion for cardiogenic Diagnostic workup - Patient presented with blood pressure of 83/60, which was initially responsive to 3 L of IVF bolus, but later decompensated and required Levophed to maintain MAP above 65 in the ED Patient noted to have a temperature of 86 ?F in the ED on presentation and had a fever of 102 ?F at his SNF - Patient was recently admitted to [facility] ICU for similar presentation, which had improved with IV antibiotics and hydrocortisone - Patient does have chronic osteomyelitis with a significantly large stage IV ulcer in lower thoracic region to which the patient is only able to tolerate oral antibiotics as the patient has self removed PICC lines in the past for IV antibiotics - Patient also has history of ESBL Enterococcus faecalis in urine - UA showed turbid urine with positive leukocyte esterase, nitrite negative, WBC 172, yeast, rare bacteria. - NICOM at bedside showed increased cardiac output and decreased systemic vascular resistance, unlikely cardiogenic shock Treatment: - Martine hugger - On Levophed, MAP goal above 65 - Vancomycin (02/02-), Doxycycline (02/02-) and Cefepime (02/02? - Added midodrine 10mg TID Treatment follow-up: -Follow-up renin, aldosterone, and 17-hydroxyprogesterone - Follow-up urine and blood cultures - Wean pressor as tolerated #CHF exacerbation #HFpEF (55-60% EF 12/2024) Patient was noticed to have bilateral lower extremity edema and upper extremity edema Chest x-ray that show worsening vascular congestion with some pulmonary edema Patient has been producing minimal urine, but with 1 dose of Bumex urine output did slightly improve Jose Roberto's criteria using vbg showed increased SV therefore will benefit from diuresis Treatment plan: Bumex 1 mg x 1 Treatment follow-up: Follow-up on urine output and repeat renal function panel in the afternoon. #Atrial fibrillation Diagnostic workup: - Patient has a history of atrial fibrillation and previously took Eliquis, but this was put on hold from the patient's previous hospital admission until the patient could be re-evaluated outpatient Treatment: - Continue to hold anticoagulation Treatment follow-up: - Follow-up cardiology outpatient #Elevated troponins (resolved) #NSTEMI type II (resolved) PULM #Pulmonary Edema DDx: CHF exacerbation CXR showed worsening vascular congestion with decreased breathsounds on PE Treatment: Bumex 1 mg x1 Treatment follow up: Repeat CXR in the AM #Bilateral pleural effusions (L>R) with compressive atelectasis DDx: Healthcare facility associated pneumonia vs aspiration Diagnostic workup: - As noted on CT chest/abdomen/pelvis taken 02/02 - Patient breathing comfortably on room air without increased work of breathing on admission Treatment: - Doxycycline (02/04-) and Cefepime (02/02? Treatment follow-up: - If patient desaturates, consider left thoracentesis GI #History of Castorena's esophagus #History of esophageal ulcers with upper GI bleed Diagnostic workup: - EGD 01/22 showed esophageal ulcers without active bleeding - Colonoscopy performed 01/24 showed internal hemorrhoids and mild diverticulosis in the sigmoid colon and descending colon Treatment: - Protonix 40 mg daily Treatment follow-up: - Continue to monitor CBC for possible bleed # Transaminitis (improving) # ?Primary hepatocellular disease Diagnostic workup: - AST 58 -> 54 - ALT within normal limits but elevated compared to previous hospitalization - Alk phos 225 -> 223 - Abdominal ultrasound showed absent gallbladder with normal common bile duct however liver noted to be lobular in contour, suspect primary hepatocellular disease. -Prolonged PTT, INR, PT Treatment: -No active treatment at this time Treatment follow-up: -Follow-up hepatitis panel and daily CMP NEPHRO #CKD stage IV Diagnostic workup - Creatinine on admission 2.3, noted to be downtrending compared to previous creatinine values - Possible ARIA as patient's does report poor urine output on 02/02 Treatment: - Bumex 1mg x1 - Avoid nephrotoxic drugs - Renally dose medications - Nephrology consulted for clearance for MRI with contrast and given worsening ARIA #Lactic acidosis (improving) Diagnostic workup: - Lactic acid 2.8 -> 1.5 --> 3.8 -> 3.3 - Likely up trended secondary to increased pressor support this morning Treatment: - Manage underlying shock with IVF and vasopressors - Zosyn and Doxycycline Treatment follow-up: - Trend lactic every 3 hour #Bilateral renal cysts #Atrophic left kidney Diagnostic workup - As noted on CT chest/abdomen/pelvis on 02/02 Treatment: -No active treatment at this time Treatment follow-up: - Follow up outpatient URO #Indwelling tenorio catheter Diagnostic workup: - Patient presented with tenorio catheter placed, noted to have been planned for discontinuation after the patient completed bladder exercises - Possible source of infection given bladder was contracted around tenorio catheter on CT chest/abdomen/pelvis taken 02/02 - UA showed turbid urine with positive leukocyte esterase, nitrite negative, WBC 172, yeast, rare bacteria. Treatment: -Tenorio in place -IV antibiotics as above Treatment follow-up: - Urine cultures collected 02/02, negative - Will reassess need for Tenorio catheter and possibly exchange catheter HEME #Pancytopenia (improving) Likely secondary to shock Diagnostic workup: -On admission, WBC 3.0, RBC 2.71, hemoglobin 7.8, and platelet 93 -02/03: WBC improved, improved, hemoglobin 7.4. Low suspicion for active GI bleed at this time. No melena or hematemesis. Treatment: -No active treatment at this time Treatment follow-up: - Will consider further workup for myelodysplastic syndromes - Transfuse if hemoglobin less than 7 #Electrolyte abnormalities #Hypernatremia #Hyperkalemia #Hyperchloremia Diagnostic workup: - Sodium 151, potassium 5.4, and chloride 123 on admission - Likely secondary to dehydration as the patient has not had any oral intake for the past 2 days prior to admission - Free water deficit 3.5 L on admission -NICOM at bedside shows the patient is not fluid responsive -Urine electrolytes showed high urine anion gap, suggestive of RTA Treatment: - S/p 3 L of IVF hydration in ED - Bicitra 30 mg 3 times daily Treatment follow-up: - Repeat renal panel in the evening #Normal anion gap metabolic acidosis #HAGMA #RTA Diagnostic workup: - Albumin corrected anion gap 14.7, suggesting non-anion gap metabolic acidosis on admission -Repeat renal panel 02/03 showed bicarb 14.5, anion gap 20, lactic 3.3 -Urine electrolytes showed high urine anion gap, suggestive of RTA Treatment: - Bicitra 30 mg 3 times daily Treatment follow-up: - Repeat renal panel in the evening ENDO No active problems ID #History of Enterococcus faecalis in urine #History of chronic osteomyelitis T12-L2 Diagnostic workup: - Patient does have a history of Enterococcus faecalis in urine and chronic osteomyelitis with previous wound cultures growing pansensitive MSSA - MRI lumbar spine 12/15/2024 notes osteomyelitis in T12-L2, patient had previously pulled out PICC line during past hospitalizations, so was recently discharged with oral antibiotics Treatment: - IV antibiotics as above SKIN #Stage IV ulcer, lower back, T11-T12 Diagnostic workup - Lower back ulcer (on admission estimate size 5 cm x 3 cm x 0.5 cm) with exposure to subcutaneous tissue, slight bloody discharge without expression of pus noted on admission - Patient does have a history of a chronic stage IV ulcer in his mid back, possible source of chronic osteomyelitis during previous admissions Treatment: - Wound care referral - Keep patient on his sides -Antibiotics as above Treatment follow-up: - Monitor size and characteristics of wound daily, if worsening consider wound culture and referral to general surgery for debridement - Follow-up MRI thoracic #Multiple scattered scabs Diagnostic workup: -On exam, patient has multiple diffuse and scattered scabs noted throughout the body, most numerous and prominent on bilateral upper extremities and chest - Likely secondary to scratching Treatment: - No active treatment at this time as patient is not scratching anymore Treatment follow-up: - Consider resolve or topical steroid if patient resumes scratching ICU Health maintenance: Mechanical ventilation: No Sedation: No Diet: NPO, NG tube DVT prophylaxis: Heparin SQ GI prophylaxis: Protonix Tenorio: Yes Lines: PIV, right IJ central line, left radial arterial line Antibiotics: Doxycycline, cefepime CODE STATUS: Full Case disclosed with Attending Dr. Clayton Anne PGY2 Disclaimer: Even though this this note was dictated by speech recognition and even though it was carefully revised there may still be minor errors in barrel line operator due to voice recognition software. Attending Provider Attestation/Addendum Patient seen and examined, discussed with residents. In brief this is a 64-year-old male who is well-known to the service who was admitted for septic shock. He continues to have decent vasopressor requirements. His cultures are negative to date. He has chronic osteomyelitis of his vertebra. He is on broad-spectrum antibiotics. On physical exam he continues to be encephalopathic and nonverbal. There are diminished breath sounds, he is edematous throughout, there is a maculopapular rash noted, multiple excoriations on his skin from scratching. Will continue the patient's vasopressors and antibiotics for his presumed septic shock though all cultures are negative to date. It is noted that last time patient's cultures were negative as well. He does have a significant amount of pulmonary edema as well as generalized anasarca. Will diurese patient as able and as tolerated. Would like to obtain an MRI of his spine to look further for discitis and osteomyelitis however he does have chronic kidney disease. Will consult nephrology for further recommendations and proceed with MRI as able. Case discussed with ICU team Labs, imaging and records reviewed Approximately 42 critical care minutes required for evaluation, exam, review, dimension, discussion formulation of plan of care for critically ill patient with septic shock at high risk of further ongoing decompensation.
[2025-02-04 09:01] LABS: Base Excess, Venous -4 (-3-3); O2 Saturation, Venous 100 % (96-97); PCO2, Venous 27 mmHg (36-56); PO2, Venous 169 mmHg (15-58); pH, Venous 7.47 (7.33-7.66)
[2025-02-04] MEDS: ALBUMIN HUMAN-KJDA 25% IVPB 25 GM/100 ML BTL IV (09:06)
[2025-02-04] MEDS: CEFEPIME INJ 2 GM in SODIUM CHLORIDE 0.9% (Popper) 50 ML IV ×2 (09:08→20:52)
[2025-02-04] MEDS: CITRIC ACID/SODIUM CITR 15 ML UDC (BICITRA) 30 ML NG ×2 (10:27→20:52)
--- NOTE | 2025-02-04 11:28 | ESCONSULT_ITS ---
HPI Data of Consult Consult date: 02/04/25 Requesting Physician: Shereen Arnold MD Admitting Provider: Shereen Arnold MD Attending Provider: Shereen Arnold MD Primary Care Provider: Wilfredo Navarro MD Consult Narrative Reason for consult: ARIA on CKD History of present illness: Agustin Schrader 64M with history of atrial fibrillation (was previously on Eliquis), CAD status post multiple stents, CVA, wheelchair-bound, CKD, Castorena's esophagus, esophageal ulcers with past upper GI bleed, and chronic osteomyelitis of the lower thoracic spine who presented to [facility] ED on 02/02 from [facility] for altered mental status. The patient was admitted to the ICU for management of shock requiring vasopressors. This patient is very well-known to [facility] and was recently discharged on 01/27 after presenting very similarly. At that time, the patient was admitted to ICU for management of shock requiring vasopressors, was found to have small and stable subdural hemorrhage which prompted neurology to recommend holding the patient's anticoagulation, and discharged on his home regimen of doxycycline and Keflex which was prescribed until per ID consultation from her previous hospitalization for the patient's chronic osteomyelitis. It is unclear how much mental capabilities the patient recovered as the patient's baseline and resolved the patient having limited vocabulary, but is able to eat on his own. The patient remained stable for a few days until around 01/31 when the noticed that the patient became much less responsive and would not eat his food. On 02/02 in the morning, nursing staff noted that the patient had hypoglycemia with a blood glucose of 55, hypotension, and a fever of 102 ?F. According to the patient's , the patient was seemingly tensed up and appeared to be silently screaming the night before. The believes that the patient is in pain and is trying to communicate, but is unable to. Additionally, the patient's notes that the patient's arms became swollen, but the swelling has since decreased with some residual swelling in the patient's right arm. Of note, the patient was made limited code during the previous hospitalization, but the patient's has revoked that and made the patient full code for this hospitalization. The patient's has signed a POLST form reflecting this decision. The patient was unable to provide any history as he was unresponsive and seemingly staring off into space with random jerking motions. Nephrology consulted for ARIA on CKD IV. 02/04/2025: Patient seen and examined at bedside in ICU. Patient is not arousable to verbal stimulation, grimacing and groaning with sternal rub, sleepy. Patient on high flow 40L and levophed. Nephrology consulted for ARIA on CKD 4, cleared from nephrology to obtain low ionic contrast MRI spine. Patient is clinically hypervolemic and fluid overloaded, recommend against further IVF. Given clinical picture, patient is not a candidate for hemodialysis as he has significant comorbidities such as hx of osteomyelitis and frequent episodes of sepsis requiring hospitalization. cc:: cc: Shereen Arnold MD Review of Systems Review of Systems ROS Unobtainable: unobtainable due to mental status Exam Vital Signs Temp Pulse Resp BP Pulse Ox O2 Del Method O2 Flow Rate 96.9 F 65 19 130/67 100 Room Air 40 02/04/25 08:01 02/04/25 09:52 02/04/25 09:52 02/04/25 09:15 02/04/25 09:15 02/03/25 16:01 02/04/25 09:52 FiO2 85 02/04/25 09:52 Narrative Exam GENERAL: grimaces and groans to sternal rub, unable to assess alertness or orientation, sleeping, no acute distress HEENT: mucous membranes dry, bilateral sclera anicteric CARDIOVASCULAR: irregular rate and rhythm, S1/S2 present, no murmurs appreciated, RIJ central line PULMONARY: clear to auscultation bilaterally, no rales/rhonchi/wheezes ABDOMINAL: soft, non-tender, non-distended, no rebound/guarding, bowel sounds present MSK: Large open wound at thoracic spine, mild erythema around borders. Coccygeal pressure ulcer, minimal bleeding but no purulent drainage EXTREMITIES: BLE non pitting edema, BUE non pitting edema R>L SKIN: dry flaky NEURO: unable to assess Results Labs 02/04/25 04:21 02/04/25 04:21 Labs: Short CBC 02/04/25 02/04/25 Range/Units 00:10 04:21 WBC 8.5 D (3.8-10.6) Thou/mm3 Hgb 5.8 L* D 7.3 L D (13.5-16.0) g/dL Hct 18.1 L* 22.9 L (41.0-53.0) % Plt Count 117 L (140-440) Thou/mm3 BMP 02/03/25 02/03/25 02/04/25 11:09 20:45 00:10 Sodium 152 H 150 H 154 H Potassium 4.8 D 4.9 5.6 H D Chloride 124 H* 122 H* 121 H* Carbon Dioxide 14.5 L* 15.6 L 17.2 L BUN 33 H 35 H 43 H Creatinine 2.6 H 2.7 H 2.8 H Glucose 88 125 H 103 Calcium 8.5 8.7 8.2 L 02/04/25 04:21 Sodium 155 H Potassium 4.2 D Chloride 122 H* Carbon Dioxide 17.7 L BUN 38 H Creatinine 2.8 H Glucose 70 L Calcium 9.2 Liver Function 02/03/25 02/03/25 02/04/25 Range/Units 11:09 20:45 00:10 Total Bilirubin (0.3-1.2) mg/dL AST (0-34) U/L ALT (10-49) U/L Alkaline Phosphatase (46-116) U/L Albumin 2.3 L 2.3 L 2.6 L (3.4-4.8) gm/dL 02/04/25 Range/Units 04:21 Total Bilirubin 0.4 (0.3-1.2) mg/dL AST 79 H (0-34) U/L ALT 66 H (10-49) U/L Alkaline Phosphatase 235 H (46-116) U/L Albumin 2.6 L (3.4-4.8) gm/dL ABG Interpretation ABG results: 02/02/25 02/03/25 02/03/25 19:07 11:09 23:50 ABG pH 7.46 H ABG pCO2 26 L ABG pO2 64 L ABG HCO3 19 L ABG O2 Saturation 95 ABG Base Excess -5 L VBG pH 7.38 7.40 VBG pCO2 30 L 23 L VBG pO2 65 H 81 H VBG Base Excess -7 L -10 L 02/04/25 08:40 ABG pH ABG pCO2 ABG pO2 ABG HCO3 ABG O2 Saturation ABG Base Excess VBG pH 7.47 VBG pCO2 27 L VBG pO2 169 H D VBG Base Excess -4 L Quality Measures Quality Measures VTE prophylaxis and sepsis Current suspected stage: septic shock (LA >4 and/or hypotension) Sepsis reassessment completed at (date): 02/04/25 Sepsis reassessment completed at (time): 11:40 Possible source: pulmonary, genitourinary and skin/soft tissue Blood cultures ordered: yes Antibiotic ordered: Yes Medications Home Medications and Allergies Home Medications ?Medication ?Instructions ?Recorded ?Confirmed ?Type isosorbide mononitrate 30 mg 60 mg PO QDAY 10/20/23 History tablet,extended release 24 hr Held on 01/27/25. Instructions: Resume on 02/14/25. Follow up with Senior Manager Mmcoe before resuming acetaminophen 325 mg tablet 650 mg PO Q4H PRN pain (sc terence 01/01/25 01/20/25 History score 1-3) and fever atorvastatin 40 mg tablet 40 mg PO HS HDL 01/01/25 History ascorbic acid (vitamin C) 500 mg 500 mg PO BID supplem ent 01/20/25 01/20/25 History tablet (C-500) bisacodyl 10 mg rectal suppository 10 mg MA QDAY PRN c onstipation 01/20/25 01/20/25 History (Dulcolax (bisacodyl)) hydroxyzine HCl 25 mg tablet 25 mg PO BID Itching 01/0601/20/25 History metoprolol tartrate 100 mg tablet 100 mg PO BID HTN 01/20/25 History Held on 01/27/25. Instructions: Resume on 02/14/25. Follow up with Senior Manager Mmcoe before resuming multivitamin with folic acid 400 1 tab PO QDAY supplem ent 01/20/25 01/20/25 History mcg tablet (Daily-Lissette (with folic acid)) sodium phosphates 19 gram-7 118 ml MA QDAY PRN constip ation 01/20/25 01/20/25 History gram/118 mL enema (Fleet Enema) zinc sulfate 50 mg zinc (220 mg) 50 mg PO QDAY supplem ent 01/20/25 01/20/25 History capsule (Zinc-220) Allergies Allergy/AdvReac Type Severity Reaction Status Date / Time bee pollen Allergy Severe Anaphylaxis Verified 02/02/25 11:16 Sulfa (Sulfonamide Allergy Intermediate Swelling Verified 02/02/25 11:16 Antibiotics) of Lip/Tongue/Throat ampicillin Allergy Unknown Hives Verified 02/02/25 11:16 hydrocodone AdvReac Unknown Nausea Verified 02/02/25 11:16 COLLAGEN Allergy Intermediate Rash Uncoded 02/02/25 11:16 Visit Medications Citric Acid/Sodium Citrate (Citric Acid/Sodium Citr 15 Ml Udc (Bicitra)) 30 ml NG BID HANNAH Stop: 03/05/25 19:08 Last Admin: 02/04/25 10:27 Dose: 30 ml Dextrose (Dextrose 50%-Water Inj 50 Ml Syringe) 50 ml IVP Q30MIN PRN PRN Reason: HYPOGLYCEMIA Stop: 03/05/25 00:22 Last Admin: 02/03/25 05:40 Dose: 50 ml Heparin Sodium (Porcine) (Heparin Sod Inj 5000 Unit/Ml Vial) 5,000 unit SC Q8HR HANNAH On Hold: 02/04/25 01:22 Stop: 02/16/25 21:59 Last Admin: 02/03/25 21:01 Dose: 5,000 unit Norepinephrine Bitartrate (Levophed In Ns 16mg/250ml) 16 mg in 250 mls @ 4.176 mls/hr IV .Q24H PRN; Protocol PRN Reason: PER protocol Stop: 03/04/25 17:10 Last Titration: 02/04/25 06:00 Dose: 0.13 mcg/kg/min, 10.857 mls/hr Cefepime HCl 2 gm/ Sodium (Chloride) 50 mls @ 100 mls/hr IV Q12HR HANNAH Stop: 02/09/25 21:00 Last Admin: 02/04/25 09:08 Dose: 100 mls/hr Dexmedetomidine/Sodium Chloride (Precedex Ivpb) 400 mcg in 100 mls @ 4.445 mls/hr IV .[id number] PRN; Protocol PRN Reason: Per PROTOCOL Stop: 03/05/25 10:04 Dextrose (D5w) 1,000 mls @ 100 mls/hr IV .Q10H HANNA[facility] On Hold: 02/03/25 23:54 Stop: 03/05/25 10:14 Last Infusion: 02/03/25 23:45 Dose: 0 mls/hr Albumin Human (Albuminex 25% Ivpb) 25 gm in 100 mls @ 100 mls/hr IV QDAY [facility] Stop: 02/06/25 21:51 Last Admin: 02/04/25 09:06 Dose: 100 mls/hr Doxycycline Hyclate 100 mg/ (Sodium Chloride) 100 mls @ 100 mls/hr IV BID [facility] Stop: 02/11/25 20:59 Midodrine (Midodrine 5 Mg Tablet) 10 mg PO TID [facility] Stop: 03/06/25 13:59 Ondansetron HCl (Ondansetron Inj 2 Mg/Ml Inj 2 Ml) 4 mg IVP Q6HR PRN PRN Reason: NAUSEA OR VOMITING Stop: 03/04/25 11:00 Pantoprazole Sodium (Pantoprazole Inj 40 Mg Vial) 40 mg IVP BID [facility] Stop: 03/06/25 08:59 Last Admin: 02/04/25 09:08 Dose: 40 mg Discontinued Medications Bumetanide (Bumetanide Inj 0.25 Mg/Ml Vial 4 Ml) 1 mg IVP X1 ONE Stop: 02/03/25 23:59 Last Admin: 02/04/25 00:14 Dose: 1 mg Bumetanide (Bumetanide Inj 0.25 Mg/Ml Vial 4 Ml) 1 mg IVP X1 ONE Stop: 02/04/25 08:07 Last Admin: 02/04/25 09:07 Dose: 1 mg Calcium Gluconate (Calcium Gluconate 10% Inj 1 Gm/10 Ml Vial) 1 gm IV X1 ONE Stop: 02/04/25 01:30 Last Admin: 02/04/25 01:58 Dose: 1 gm Citric Acid/Sodium Citrate (Citric Acid/Sodium Citr 15 Ml Udc (Bicitra)) 30 ml NG BID [facility] Stop: 03/05/25 20:59 Dextrose (Dextrose 50%-Water Inj 50 Ml Syringe) 50 ml IVP X1 ONE Stop: 02/02/25 12:24 Last Admin: 02/02/25 10:45 Dose: 50 ml Dextrose (Dextrose 50%-Water Inj 50 Ml Syringe) 50 ml IVP X1 ONE Stop: 02/02/25 19:35 Last Admin: 02/02/25 19:25 Dose: 50 ml Dextrose (Dextrose 50%-Water Inj 50 Ml Syringe) 50 ml IVP X1 ONE Stop: 02/03/25 07:06 Last Admin: 02/03/25 07:43 Dose: 50 ml Dextrose (Dextrose 50%-Water Inj 50 Ml Syringe) 50 ml IVP X1 ONE Stop: 02/03/25 07:06 Last Admin: 02/03/25 07:44 Dose: 50 ml Dextrose (Dextrose 50%-Water Inj 50 Ml Syringe) 50 ml IVP X1 ONE Stop: 02/04/25 01:28 Last Admin: 02/04/25 01:51 Dose: 50 ml Lactated Ringer's (Lactated Ringers) 1,000 mls @ 999 mls/hr IV .Q1H1M ONE Stop: 02/02/25 12:01 Last Infusion: 02/02/25 13:19 Dose: Infused Levofloxacin/Dextrose (Levaquin Ivpb) 750 mg in 150 mls @ 100 mls/hr IV X1 ONE Stop: 02/02/25 12:30 Last Infusion: 02/02/25 16:05 Dose: Infused Vancomycin HCl 1,500 mg/ (Sodium Chloride) 250 mls @ 250 mls/hr IV X1 ONE Stop: 02/02/25 12:00 Last Infusion: 02/02/25 16:05 Dose: Infused Lactated Ringer's (Lactated Ringers) 1,000 mls @ 999 mls/hr IV .Q1H1M ONE Stop: 02/02/25 15:50 Last Infusion: 02/02/25 16:05 Dose: Infused Dexamethasone Sodium Phosphate (10 mg/ Sodium Chloride) 51 mls @ 102 mls/hr IV X1 ONE Stop: 02/02/25 15:21 Last Infusion: 02/02/25 16:38 Dose: Infused Lactated Ringer's (Lactated Ringers) 1,000 mls @ 999 mls/hr IV .Q1H1M ONE Stop: 02/02/25 17:19 Last Infusion: 02/02/25 17:34 Dose: Infused Piperacillin/Tazobactam/Dextrose (Zosyn) 3.375 gm in 50 mls @ 12.5 mls/hr IV Q8HR HANNAH; Protocol Stop: 02/09/25 22:59 Piperacillin/Tazobactam/Dextrose (Zosyn) 3.375 gm in 50 mls @ 100 mls/hr IV X1 ONE; Protocol Stop: 02/02/25 19:14 Last Admin: 02/03/25 07:05 Dose: Not Given Ceftriaxone Sodium 2 gm/ (Sodium Chloride) 50 mls @ 100 mls/hr IV QDAY [facility] Stop: 02/09/25 19:52 Last Admin: 02/03/25 07:05 Dose: Not Given Magnesium Sulfate (Magnesium Sulfate Ivpb) 4 gm in 50 mls @ 12.5 mls/hr IV X1 ONE Stop: 02/03/25 11:06 Last Admin: 02/03/25 07:42 Dose: 12.5 mls/hr Vancomycin/Sodium Chloride (Vancomycin/Ns 500 Mg Ivpb) 100 mls @ 120 mls/hr IV QDAY@1000 [facility]ANNA[facility]; Protocol Stop: 02/10/25 09:59 Last Admin: 02/04/25 10:42 Dose: Not Given Magnesium Sulfate (Magnesium Sulfate Ivpb) 2 gm in 50 mls @ 25 mls/hr IV X1 ONE Stop: 02/04/25 00:49 Last Infusion: 02/04/25 00:52 Dose: Infused Insulin Human Regular (Insulin Hum Regular 1 Unit/0.01 Ml (Per Unit)) 5 unit IV X1 ONE Stop: 02/03/25 07:06 Last Admin: 02/03/25 07:43 Dose: 5 unit Insulin Human Regular (Insulin Hum Regular 1 Unit/0.01 Ml (Per Unit)) 5 unit IV X1 ONE Stop: 02/04/25 01:28 Last Admin: 02/04/25 01:55 Dose: 5 unit Pantoprazole Sodium (Pantoprazole Inj 40 Mg Vial) 40 mg IVP QDAY [facility] Stop: 03/04/25 19:44 Last Admin: 02/03/25 08:17 Dose: 40 mg Pantoprazole Sodium (Pantoprazole Inj 40 Mg Vial) 40 mg IVP X1 ONE Stop: 02/04/25 01:24 Last Admin: 02/04/25 01:51 Dose: 40 mg Pharmacy Consult (Vancomycin Pharmacy To Dose 1 Each Each) 1 each IV QDAY [facility] Stop: 03/04/25 18:44 Last Admin: 02/02/25 22:07 Dose: Not Given Pharmacy Consult (Vancomycin Pharmacy To Dose 1 Each Each) 1 each IV QDAY PRN PRN Reason: PROTOCOL Stop: 03/04/25 18:44 Sodium Bicarbonate (Sodium Bicarb Inj 8.4% Syr 50 Ml Syringe) 50 ml IV X1 ONE Stop: 02/03/25 21:52 Last Admin: 02/03/25 22:09 Dose: 50 ml Sodium Bicarbonate (Sodium Bicarb Inj 8.4% Syr 50 Ml Syringe) 50 ml IV X1 ONE Stop: 02/03/25 22:49 Last Admin: 02/03/25 22:58 Dose: 50 ml Sodium Chloride (Sodium Chloride Rt 10% 15 Ml Nebu) 5 ml INH X1 ONE Stop: 02/03/25 09:52 Last Admin: 02/04/25 06:55 Dose: Not Given Sodium Polystyrene Sulfonate (Sod Polystyrene Sulfon Susp 15 Gm/60 Ml Btl) 30 gm PO X1 ONE Stop: 02/03/25 09:55 Last Admin: 02/03/25 10:16 Dose: Not Given Sodium Polystyrene Sulfonate (Sod Polystyrene Sulfon Susp 15 Gm/60 Ml Btl) 30 gm NG X1 ONE Stop: 02/03/25 10:10 Last Admin: 02/03/25 15:04 Dose: 30 gm Assessment & Plan Plan Agustin Schrader 64M with history of atrial fibrillation (was previously on Eliquis), CAD status post multiple stents, CVA, wheelchair-bound, CKD, Castorena's esophagus, esophageal ulcers with past upper GI bleed, and chronic osteomyelitis of the lower thoracic spine who presented to [facility] ED on 02/02 from [facility] for altered mental status. The patient was admitted to the ICU for management of shock requiring vasopressors. #ARIA on CKDIV #Bilateral renal cysts #Atrophic left kidney Known history of CKD stage IV with baseline creatinine 1.7-2.2 on previous hospitalization for similar presentation. Creatinine on admission 2.3, uptrended 2.8. reports poor UOP on 02/02. CTAP showed bilateral renal cysts, severe atrophy of left kidney Likely 2/2 frequent insults i.e. sepsis to pre-existing CKD stage IV. ARIA likely secondary to shock. Plan: - Cleared from nephrology to obtain low ionic contrast MRI spine - Given clinical picture, patient is not a candidate for hemodialysis as he has significant comorbidities such as hx of osteomyelitis and frequent episodes of sepsis requiring hospitalization and furthermore may not tolerate hemodialysis due to bedbound status thus inability to attend sessions - Strict I/Os, follow UOP closely, avoid nephrotoxic agents and renally dose - Avoid IVF as patient is clinically hypervolemic and recommend diuresis #Shock #Hypothermia #Acute encephalopathy #Bilateral subdural hygromas, chronic #Atrial fibrillation #Elevated troponins (resolved) #NSTEMI type II (resolved) # Bilateral pleural effusions (L>R) with compressive atelectasis #History of Castorena's esophagus #History of esophageal ulcers with upper GI bleed # Transaminitis (improving) # ?Primary hepatocellular disease #Lactic acidosis #Indwelling tenorio catheter #Pancytopenia (improving) #Electrolyte abnormalities #Hypernatremia #Hyperkalemia #Hyperchloremia #Normal anion gap metabolic acidosis #HAGMA #RTA #History of Enterococcus faecalis in urine #History of chronic osteomyelitis T12-L2 Plan: - Management per ICU team Thank you for the consultation and allowing participation in patient's care. Plan of care discussed with attending Dr. Summers. Yohana Torres, DO PGY-1 Internal Medicine Attending Provider Attestation/Addendum Patient currently seen and examined with resident physician Dr. Torres. Note reviewed, agree with findings and recommendations. Patient currently seen in ICU. Has been in the hospital several times. Patient practically bedbound with decubitus ulcer In the thoracic spine area. Planning to do MRI with contrast. Due to his advanced kidney problem-recommend low ionic contrast. Care discussed with ICU team. Thank you Shereen for allowing me to participate in the care of Mr. Schrader
[2025-02-04] MEDS: MIDODRINE 5 MG TABLET 10 MG PO ×2 (14:14→20:53)
[2025-02-04 17:42] LABS: Albumin, Serum 2.8 gm/dL (3.4-4.8); Anion Gap 13 (7-16); BUN/Creatinine Ratio 12 Ratio (12-20); Blood Urea Nitrogen 37 mg/dL (9-23); Calcium 8.8 mg/dL (8.3-10.6); Calcium (Corrected) 9.8 mg/dL (8.5-10.1); Carbon Dioxide 21.4 mMol/L (20.0-31.0); Chloride 122 mMol/L (98-107); Creatinine (Component) 3.1 mg/dL (0.6-1.3); Estimated Creatinine Clearance 26.9 mL/min (>60); Glucose 80 mg/dL (74-106); Osmolality,Calculated 316 (275-295); Phosphorous 6.3 mg/dL (2.4-5.1); Potassium 4.4 mMol/L (3.4-5.1); Sodium 156 mMol/L (136-145); eGFR 22 See Note
[2025-02-04] MEDS: Norepinephrine/NS 16mg/250ml 16 MG/250 ML BAG 4.176 MG IV (18:23)
[2025-02-04 19:26] LABS: Hematocrit 22.0 % (41.0-53.0)
[2025-02-04 19:28] LABS: Hemoglobin 7.2 g/dL (13.5-16.0)
[2025-02-04 19:46] LABS: Albumin, Serum 2.8 gm/dL (3.4-4.8); Anion Gap 10 (7-16); BUN/Creatinine Ratio 12 Ratio (12-20); Blood Urea Nitrogen 36 mg/dL (9-23); Calcium 8.8 mg/dL (8.3-10.6); Calcium (Corrected) 9.8 mg/dL (8.5-10.1); Carbon Dioxide 21.6 mMol/L (20.0-31.0); Chloride 124 mMol/L (98-107); Creatinine (Component) 3.1 mg/dL (0.6-1.3); Estimated Creatinine Clearance 26.9 mL/min (>60); Glucose 72 mg/dL (74-106); Osmolality,Calculated 316 (275-295); Phosphorous 6.3 mg/dL (2.4-5.1); Potassium 4.4 mMol/L (3.4-5.1); Sodium 156 mMol/L (136-145); eGFR 22 See Note
[2025-02-04] MEDS: DOXYCYCLINE INJ 100 MG in SODIUM CHLORIDE 0.9% (POP) 100 ML IV (20:52)
[2025-02-04 23:36] LABS: Hepatitis A Antibody IgM Non Reactive (Non React); Hepatitis B Core Antibody IgM Non Reactive (Non React); Hepatitis B Surface Antigen Non Reactive (Non React); Hepatitis C Antibody Non Reactive (Non React)
[2025-02-05] VITALS (105 sets, daily range): BP systolic 80–193; BP diastolic 43–102; PULSE 39–104; RESP 0–26; TEMP 35.6–36.4; O2SAT 75–100
--- NOTE | 2025-02-05 | XR_ITS ---
EXAMINATION: MRI thoracic spine with intravenous contrast TECHNIQUE: Sagittal and axial MR thoracic spine images., Post intravenous administration 5 cc gadolinium, Comparison noncontrast MRI thoracic spine January 22, 2025 INDICATIONS: Open wound over the thoracic spine, clinical diagnosis epidural abscess transverse myelitis Date and time: January 06, 2025, 10:43 a.m. FINDINGS: Although the images are severely degraded by patient motion However, no acute thoracic fracture Mild diffuse thoracic disc narrowing No abnormal enhancing osseous epidural or thoracic cord lesions noted IMPRESSION: Limited study No abnormal osseous epidural or thoracic cord lesions noted
--- NOTE | 2025-02-05 00:48 | XR_ITS ---
EXAMINATION: AP chest single view TECHNIQUE: AP portable supine chest single view Date and time: February 05, 2025, 12:48 a.m., comparison February 03, 2025 INDICATIONS: Hypoxic respiratory failure post intubation FINDINGS: Interval diffuse right lung pneumonia. Prominent left base pneumonia. Orogastric tube tip distal stomach Right internal jugular central line tip right atrium Endotracheal tube tip 5.7 cm above ernestine IMPRESSION: Interval diffuse significant right lung pneumonia, consider aspiration pneumonia
[2025-02-05] MEDS: ETOMIDATE INJ 2 MG/ML VIAL 10 ML 20 MG IVP (00:50)
[2025-02-05] MEDS: SUCCINYLCHOLINE INJ 20 MG/ML VIAL 10 ML 100 MG IV (00:50)
[2025-02-05 00:55] LABS: Base Excess -6 (-3-3); HCO3 22 mEq/L (20-26); Inspired O2, VO2 Liters 15 L/min; O2 Saturation 98 % (91-98); PCO2 58 mmHg (32.0-48.0); PO2 124 mmHg (83-108)
[2025-02-05 00:56] LABS: Allen Test Not Performed; Puncture Site Arterial Line; pH, Arterial 7.20 (7.35-7.45)
[2025-02-05] MEDS: PROPOFOL 1,000 MG IVPB 1,000 MG/100 ML VIAL 2.688 MG IV (01:06)
[2025-02-05] MEDS: fentaNYL 2,500 MCG/250 ML BAG 2,500 MCG/250 ML BAG IV (01:07)
--- NOTE | 2025-02-05 01:12 | ESOP_ITS ---
PROCEDURES: Procedure Date / Time 02/05/25 0112 Procedural Time Out Time out performed: 12:48 Arterial Line Size (Gauge): 20 Intubation Indication(s): acute Resp Failure and inability to protect airway Informed consent obtained: procedure done urgently Time out done, and the following verified: correct patient, side and site, procedure, patient position and implants and/or equipment Sedative: etomidate Mg given: 20 Paralytic: succinylcholine Mg given: 100 Laryngoscope: fiber optic video scope Assist device used: fiber optic device ET tube size: 7.5 ET tube uncuffed: Yes Tube secured depth (cm): 25 Tube secured location: teeth Tube placement confirmation: visualized tube passing through cords, equal breath sounds bilaterally, no breath sounds over epigastrium and confirmation by capnometry Patient tolerated procedure: well and no complications EBL(ml): 0 Intubation complications: none Additional comments: Endotracheal Intubation for Hypoxia and inability to protect airways The patient required endotracheal intubation. The patient was given Etomidate 20 mg x 1 and Succinylcholine 100 mg x1.Once the patient was adequately sedated and paralyzed, a?Mac 4?laryngoscope was used to directly visualize the cords. Using this direct visualization, a?7.5?endotracheal tube was then passed easily t hrough the cords.This tube was inserted to?25 cm?at the lip.There was excellent color change on the end-tidal CO2 monitor. The patient was easily and adequately ventilated. There were appreciable breath sounds bilaterally with no breath sounds heard over the epigastrium. The tube was secured in the standard fashion. The patient tolerated this procedure well and there were no complications. Post-intubation chest x-ray demonstrates endotracheal tube placement at right position. Proceedure was performed under supervision of ED Physician, MD Molina Palacios MD PGY-3
[2025-02-05 01:33] LABS: Base Excess -6 (-3-3); HCO3 21 mEq/L (20-26); Inspired Oxygen, FIO2 100 %; O2 Saturation 100 % (91-98); PCO2 46 mmHg (32.0-48.0); PO2 358 mmHg (83-108); pH, Arterial 7.27 (7.35-7.45)
[2025-02-05 01:34] LABS: Allen Test Performed/OK; Puncture Site Arterial Line
[2025-02-05] MEDS: BUMETANIDE INJ 0.25 MG/ML VIAL 4 ML 1 MG IVP ×3 (02:16→20:05)
[2025-02-05 02:57] LABS: Basophils # (Auto) 0.0 Thou/mm3 (0.0-0.2); Basophils % (Auto) 0 % (0-2.5); Eosinophils # (Auto) 0.4 Thou/mm3 (0.0-0.5); Eosinophils % (Auto) 5 % (0-10); Hematocrit 24.4 % (41.0-53.0); Immature Granulocytes Auto 0.07 Thou/mm3 (0.00-0.00); Lymphocytes # (Auto) 0.6 Thou/mm3 (1.0-4.8); Lymphocytes % (Auto) 7 % (10-50); Mean Corpuscular HGB Conc 32.4 g/dl (31.0-37.0); Mean Corpuscular Hemoglobin 28.1 pg (25.0-35.0); Mean Corpuscular Volume 87 fL (80-100); Monocytes # (Auto) 0.2 Thou/mm3 (0.0-0.8); Monocytes % (Auto) 3 % (0-12); Neutrophils # (Auto) 6.8 Thou/mm3 (1.8-7.7); Neutrophils % (Auto) 84 % (37-80); Nucleated Red Blood Cell # 0.03 Thou/mm3 (0.00-0.00); Nucleated Red Blood Cell % 0 /100 WBC (0); Platelet Count 113 Thou/mm3 (140-440); RDW Standard Deviation 67.0 fL (35.1-43.9); Red Blood Count 2.81 Miln/mm3 (4.50-5.90); White Blood Count 8.1 Thou/mm3 (3.8-10.6)
[2025-02-05 03:00] LABS: Hemoglobin 7.9 g/dL (13.5-16.0)
[2025-02-05 03:10] LABS: INR 1.6 (0.9-1.3); Partial Thromboplastin Time 35.0 Seconds (22.0-36.0); Prothrombin Time 16.8 Seconds (9.0-12.2)
[2025-02-05 03:20] LABS: Alanine Aminotransferase 71 U/L (10-49); Albumin, Serum 2.8 gm/dL (3.4-4.8); Albumin/Globulin Ratio 1.3 (1.2-2.2); Alkaline Phosphatase 261 U/L (46-116); Anion Gap 14 (7-16); Aspartate Amino Transferase 93 U/L (0-34); BUN/Creatinine Ratio 12 Ratio (12-20); Bilirubin,Total 0.4 mg/dL (0.3-1.2); Blood Urea Nitrogen 40 mg/dL (9-23); Calcium 8.8 mg/dL (8.3-10.6); Calcium (Corrected) 9.8 mg/dL (8.5-10.1); Carbon Dioxide 20.4 mMol/L (20.0-31.0); Chloride 124 mMol/L (98-107); Creatinine (Component) 3.3 mg/dL (0.6-1.3); Estimated Creatinine Clearance 25.2 mL/min (>60); Globulin 2.1 gm/dL (2.3-3.5); Glucose 96 mg/dL (74-106); Magnesium 2.6 mg/dL (1.6-2.6); Osmolality,Calculated 322 (275-295); Phosphorous 6.4 mg/dL (2.4-5.1); Potassium 4.2 mMol/L (3.4-5.1); Sodium 158 mMol/L (136-145); Total Protein 4.9 gm/dL (5.7-8.2); eGFR 20 See Note
--- NOTE | 2025-02-05 04:19 | EKG_ITS ---
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: NEVILLE : [id number] Requested By: Molina Corado Order Number: [id number] Reading MD: Molina Corado Measurements Intervals [place] Rate: 60 P: GA: QRS: 7 QRSD: 114 T: -43 QT: 461 QTc: 461 Interpretive Statements ATRIAL FIBRILLATION INCOMPLETE RIGHT BUNDLE BRANCH BLOCK NONSPECIFIC ST & T-WAVE ABNORMALITY PROLONGED QT INTERVAL Compared to ECG 02/02/2025 11:24:09 Incomplete right bundle-branch block now present T-wave abnormality now present Prolonged QT interval now present Sinus rhythm no longer present First degree AV block no longer present Intraventricular conduction delay no longer present /store/S0/[id number].pdf
[2025-02-05 04:46] LABS: Base Excess -3 (-3-3); HCO3 20 mEq/L (20-26); Inspired Oxygen, FIO2 70 %; PCO2 29 mmHg (32.0-48.0); PO2 333 mmHg (83-108); pH, Arterial 7.45 (7.35-7.45)
[2025-02-05 04:47] LABS: Allen Test Not Performed; O2 Saturation 100 % (91-98); Puncture Site Arterial Line
--- NOTE | 2025-02-05 05:00 | XR_ITS ---
EXAMINATION: AP chest single view TECHNIQUE: AP portable semiupright chest single view Date and time: February 05, 2025, 0510 hours, comparison February 05, 2025 0102 hours INDICATIONS: Difficulty breathing, hypoxic respiratory failure FINDINGS: Diffuse severe right lung pneumonia Significant left base pneumonia Endotracheal tube tip 3.3 cm above ernestine Right internal jugular central line tip satisfactory position no pneumothorax Orogastric tube in the stomach, the tip is below the level of the film IMPRESSION: Diffuse severe right lung pneumonia Significant left base pneumonia
[2025-02-05] MEDS: MIDODRINE 5 MG TABLET 10 MG PO ×3 (05:51→21:32)
--- NOTE | 2025-02-05 08:05 | ESPR_ITS ---
<Statement entered by Ryan Benitez MD - 02/05/25 18:24> I have reviewed the note and agree with the resident's assessment & plan with exceptions as below. I have personally reviewed labs, imaging, home meds/prior records, examined the patient, formulated and discussed management plan with the IM team. Pt examined at bedside today. Patient became hypoxic overnight and was subsequently intubated. Patient also had bouts of bradycardia, unable to determine what degree heart block if there was one. Patient's labs reviewed, hemoglobin 7.9 which is improving, creatinine 3.3, albumin 2.8, BUN 40, sodium 158, GFR 20, urine output 1.5 L for the past 24 hours, 50 cc/hour, pending sputum, MRSA negative. Had goals of care conversation with family who want to proceed with changing CODE STATUS to DNR. Patient's family make decision on if they want to initiate comfort or hospice care at a later time. Will continue with IV albumin and then diuresis with Bumex as patient is not a candidate for dialysis at this time as nephrology has been consulted. With continue current management, change antibiotics to Zosyn for anaerobic and aspiration coverage. Patient's prognosis remains guarded at this time. Repeat hematology and chemistry in AM. Ryan Benitez, PGY-2 Internal Medicine Documentation for date of: 02/05/25 Subjective Subjective Interval history: This patient is a 64-year-old male with history of atrial fibrillation (was previously on Eliquis), CAD status post multiple stents, CVA, wheelchair-bound, CKD, Castorena's esophagus, esophageal ulcers with past upper GI bleed, and chronic osteomyelitis of the lower thoracic spine who presented to [facility] ED on 02/02 from [facility] for altered mental status. The patient was admitted to the ICU for management of shock requiring vasopressors. This patient is very well-known to [facility] and was recently discharged on 01/27 after presenting very similarly. At that time, the patient was admitted to ICU for management of shock requiring vasopressors, was found to have small and stable subdural hemorrhage which prompted neurology to recommend holding the patient's anticoagulation, and discharged on his home regimen of doxycycline and Keflex which was prescribed until per ID consultation from her previous hospitalization for the patient's chronic osteomyelitis. It is unclear how much mental capabilities the patient recovered as the patient's baseline and resolved the patient having limited vocabulary, but is able to eat on his own. The patient remained stable for a few days until around 01/31 when the noticed that the patient became much less responsive and would not eat his food. On 02/02 in the morning, nursing staff noted that the patient had hypoglycemia with a blood glucose of 55, hypotension, and a fever of 102 ?F. According to the patient's , the patient was seemingly tensed up and appeared to be silently screaming the night before. The believes that the patient is in pain and is trying to communicate, but is unable to. Additionally, the patient's notes that the patient's arms became swollen, but the swelling has since decreased with some residual swelling in the patient's right arm. Of note, the patient was made limited code during the previous hospitalization, but the patient's has revoked that and made the patient full code for this hospitalization. The patient's has signed a POLST form reflecting this decision. The patient was unable to provide any history as he was unresponsive and seemingly staring off into space with random jerking motions. ED course: Patient presented with vital significant for blood pressure of 83/60 and temperature of 86 ?F. Patient was given an amp of D50 due to blood glucose being 54 on initial evaluation. Initial labs were significant for WBC 3.0, hemoglobin 7.8, platelets 93, INR 1.5, sodium 151, potassium 5.4, chloride 123, bicarb 17.3, creatinine 2.3, AST 58, alk phos 225, and lactic acid of 2.8. Relevant labs within normal limits include procalcitonin and bilirubin of 0.4. Urinalysis was positive for leukocyte esterases, 172 WBC, and rare urine bacteria. CT head shows bilateral chronic subdural hygromas while CT chest/abdomen versus pelvis shows bibasilar pneumonia, severely atrophic left kidney, and urinary bladder contracted around a Tenorio catheter with urinary bladder wall thickening. The patient was given 1 amp of D50, 3 L of LR, and started on dexamethasone. When the patient's blood pressure send the decreased to below 65 MAP after fluid resuscitation, Levophed was started. Central line and arterial line were placed. 02/03/25: Patient was seen and assessed at bedside. No longer hypothermic after midnight. Patient had decreased urine output, about 5 cc/h. Levophed increased this morning due to low MAP. On exam, alert and hide tracking but not conversational. Open wound at thoracic spine does show signs of worsening infection. Will obtain MRI thoracic spine to rule out potential abscess or discitis. Sodium and chloride continue to be elevated, started on D5W maintenance. Continues to have high anion gap metabolic acidosis. Urine electrolytes showed elevated urine anion gap of 24, likely secondary to RTA. Started on Bicitra 30 mg 3 times daily. Follow-up renal panel. 02/04/2025: Patient was seen and examined bedside's morning. Patient overnight was having agonal breathing and was placed on high flow nasal cannula and chest x-ray was again assessed as for which showed the patient had some pulmonary edema therefore got Bumex x 1. On assessment today patient did not seem to have more peripheral edema and on auscultation there were decreased breath sounds. Given the findings and the chest x-ray findings as well we will order 1 mg of Bumex x 1. Patient was also found to have a hemoglobin 5.8 which could have been hemodilutional given that he was on D5W, but 1 PRBC was transfused and patient's hemoglobin did uptrend to 7.3, but at this time there are no active signs of bleeding. Patient is also minimally responsive even to sternal rub not withdrawing to pain at this time, but is able to open his eyes, but not tracking. Otherwise patient still on high dose Levophed at 0.13 in the AM. Blood cultures continue to be negative at this time. Kidney function continues to uptrend with minimal urine output. Sodium still uptrending patient was hyperkalemic again overnight at 5.6 and hyperkalemia cocktail was given again. Consulted nephrology, but patient unlikely to be a candidate for HD given that patient is bedbound, also will need nephrology clearance for MRI with contrast of thoracic spine. Continue doxycycline and Zosyn. Added midodrine to help wean off Levo. 02/05/2025: Patient seen and examined at bedside. Overnight patient had episodes of hypoxia overnight to 70s. Patient was intubated using etomdate 20mg and succs 100. Given patient was noted to be bradycardic post intubation, propofol was discontinued. [place] heart block note on telel strip. Albumin given in the AM with plan for Bumex 1 mg IVP x1 30 min after albumin was initiated. Plan for Goals of Care meeting with pt , given pt is not a candidate for HD. Code status changed from full code to DNR. (patient is currently intubated) Nephro recommend free water flushes for hyponatremia. Pending ET tube secretions Cultures, pending MRI t spine read. Abx modified to provide better anaerobic coverage. d.c cefepime, start Zosyn (renally dosed 3.375 q6hr with Cr Clearance 20) Exam Vital Signs Temp Pulse Resp BP Pulse Ox O2 Del Method O2 Flow Rate 96.9 F 61 16 98/54 L 100 Room Air 15 02/05/25 04:07 02/05/25 06:02 02/05/25 06:00 02/05/25 06:00 02/05/25 06:02 02/03/25 16:01 02/04/25 19:59 FiO2 30 02/05/25 07:35 Narrative Exam GENERAL: no acute distress, intubated, and on light sedation (-2 RASS) HEENT: Head AT/ NC. 7.[address], taped. Mucous membranes dry. L pupil responsive to light, R pupil not visualized (eye is rolled up, can only visualize iris), dried blood noted in the L corner of the mouth NECK: Supple, no lymphadenopathy, no carotid bruits. CARDIOVASCULAR: RRR. Normal S1/S2, No m/r/g. significant edema of the upper and lower extremities, most notable at the feet and the hands. RESPIRATORY: On Ventilator PEEP 5, [id number], TV 450, RR 16, On assist control, D iminished breath sounds on the R lung benitez, with crackles noted in the mid to lower lung benitez GASTROINTESTINAL: Abdomen soft, non tender no palpable masses. Bowel sounds present (noted in the RUQ) MUSCULOSKELETAL:? No cyanosis or edema, no visible joint swelling. NEUROLOGICAL: GCS 3, not opening eye to pain, pupils responsive to light. PSYCHIATRIC: Not assessed. SKIN: No jaundice, healing excoriations noted on the BUE, most prominent on the R shoulder. blanching macular rash noted on the abdomen, poor skin turgor, and dry and peeling skin noted on feet and hands, Objective Labs 02/05/25 02:47 02/05/25 14:00 Labs: Laboratory Results - last 24 hr 02/03/25 02/04/25 02/04/25 20:45 08:40 17:11 WBC RBC Hgb Hct MCV MCH MCHC RDW Std Deviation Plt Count Neut % (Auto) Lymph % (Auto) Atkinson % (Auto) Eos % (Auto) Baso % (Auto) Neut # (Auto) Lymph # (Auto) Atkinson # (Auto) Eos # (Auto) Baso # (Auto) Immature Gran # (Auto) Absolute Nucleated RBC Immature Gran % Nucleated RBC % PT INR APTT Puncture Site ABG pH ABG pCO2 ABG pO2 ABG HCO3 ABG O2 Saturation ABG Base Excess VBG pH 7.47 VBG pCO2 27 L VBG pO2 169 H D VBG O2 Sat (Gretel) 100 H VBG Base Excess -4 L Oxygen Liter Flow FiO2 Sodium 156 H Potassium 4.4 Chloride 122 H* Carbon Dioxide 21.4 Anion Gap 13 BUN 37 H Creatinine 3.1 H Estim Creat Clear Calc 26.9 L eGFR 22 L BUN/Creatinine Ratio 12 Glucose 80 Calculated Osmolality 316 H Calcium 8.8 Corrected Calcium 9.8 Phosphorus 6.3 H Magnesium Total Bilirubin AST ALT Alkaline Phosphatase Total Protein Albumin 2.8 L Globulin Albumin/Globulin Ratio Hepatitis A IgM Ab Non Reactive Hep Bs Antigen Non Reactive Hep B Core IgM Ab Non Reactive Hepatitis C Antibody Non Reactive 02/04/25 02/05/25 02/05/25 19:16 00:47 01:25 WBC RBC Hgb 7.2 L Hct 22.0 L MCV MCH MCHC RDW Std Deviation Plt Count Neut % (Auto) Lymph % (Auto) Atkinson % (Auto) Eos % (Auto) Baso % (Auto) Neut # (Auto) Lymph # (Auto) Atkinson # (Auto) Eos # (Auto) Baso # (Auto) Immature Gran # (Auto) Absolute Nucleated RBC Immature Gran % Nucleated RBC % PT INR APTT Puncture Site Arterial Line Arterial Line ABG pH 7.20 L D 7.27 L ABG pCO2 58 H D 46 D ABG pO2 124 H D 358 H D ABG HCO3 22 21 ABG O2 Saturation 98 100 H ABG Base Excess -6 L -6 L VBG pH VBG pCO2 VBG pO2 VBG O2 Sat (Gretel) VBG Base Excess Oxygen Liter Flow 15 FiO2 100 Sodium 156 H Potassium 4.4 Chloride 124 H* Carbon Dioxide 21.6 Anion Gap 10 BUN 36 H Creatinine 3.1 H Estim Creat Clear Calc 26.9 L eGFR 22 L BUN/Creatinine Ratio 12 Glucose 72 L Calculated Osmolality 316 H Calcium 8.8 Corrected Calcium 9.8 Phosphorus 6.3 H Magnesium Total Bilirubin AST ALT Alkaline Phosphatase Total Protein Albumin 2.8 L Globulin Albumin/Globulin Ratio Hepatitis A IgM Ab Hep Bs Antigen Hep B Core IgM Ab Hepatitis C Antibody 02/05/25 02/05/25 02:47 04:36 WBC 8.1 RBC 2.81 L Hgb 7.9 L Hct 24.4 L MCV 87 MCH 28.1 MCHC 32.4 RDW Std Deviation 67.0 H Plt Count 113 L Neut % (Auto) 84 H Lymph % (Auto) 7 L Atkinson % (Auto) 3 Eos % (Auto) 5 Baso % (Auto) 0 Neut # (Auto) 6.8 Lymph # (Auto) 0.6 L Atkinson # (Auto) 0.2 Eos # (Auto) 0.4 Baso # (Auto) 0.0 Immature Gran # (Auto) 0.07 H Absolute Nucleated RBC 0.03 H Immature Gran % 1 H Nucleated RBC % 0 PT 16.8 H INR 1.6 H APTT 35.0 Puncture Site Arterial Line ABG pH 7.45 D ABG pCO2 29 L D ABG pO2 333 H D ABG HCO3 20 ABG O2 Saturation 100 H ABG Base Excess -3 VBG pH VBG pCO2 VBG pO2 VBG O2 Sat (Gretel) VBG Base Excess Oxygen Liter Flow FiO2 70 Sodium 158 H Potassium 4.2 Chloride 124 H* Carbon Dioxide 20.4 Anion Gap 14 BUN 40 H Creatinine 3.3 H Estim Creat Clear Calc 25.2 L eGFR 20 L BUN/Creatinine Ratio 12 Glucose 96 Calculated Osmolality 322 H Calcium 8.8 Corrected Calcium 9.8 Phosphorus 6.4 H Magnesium 2.6 Total Bilirubin 0.4 AST 93 H ALT 71 H Alkaline Phosphatase 261 H D Total Protein 4.9 L Albumin 2.8 L Globulin 2.1 L Albumin/Globulin Ratio 1.3 Hepatitis A IgM Ab Hep Bs Antigen Hep B Core IgM Ab Hepatitis C Antibody ABG Interpretation ABG results: 02/02/25 02/03/25 02/03/25 19:07 11:09 23:50 ABG pH 7.46 H ABG pCO2 26 L ABG pO2 64 L ABG HCO3 19 L ABG O2 Saturation 95 ABG Base Excess -5 L VBG pH 7.38 7.40 VBG pCO2 30 L 23 L VBG pO2 65 H 81 H VBG Base Excess -7 L -10 L 02/04/25 02/05/25 02/05/25 08:40 00:47 01:25 ABG pH 7.20 L D 7.27 L ABG pCO2 58 H D 46 D ABG pO2 124 H D 358 H D ABG HCO3 22 21 ABG O2 Saturation 98 100 H ABG Base Excess -6 L -6 L VBG pH 7.47 VBG pCO2 27 L VBG pO2 169 H D VBG Base Excess -4 L 02/05/25 04:36 ABG pH 7.45 D ABG pCO2 29 L D ABG pO2 333 H D ABG HCO3 20 ABG O2 Saturation 100 H ABG Base Excess -3 VBG pH VBG pCO2 VBG pO2 VBG Base Excess Quality Measures Quality Measures VTE prophylaxis and sepsis Current suspected stage: sepsis Possible source: pulmonary, genitourinary and skin/soft tissue Blood cultures ordered: yes Antibiotic ordered: Yes Assessment & Plan Assessment Current Active Medications: Generic Name Dose Route Start Last Admin Trade Name Freq PRN Reason Stop Dose Admin Citric Acid/Sodium Citrate 30 ml 02/03/25 19:09 02/04/25 20:52 Citric Acid/Sodium Citr 15 Ml Udc (Bicitra) NG 03/05/25 19:08 30 ml BID HANNAH Administration Dextrose 50 ml 02/03/25 00:23 02/03/25 05:40 Dextrose 50%-Water Inj 50 Ml Syringe IVP 03/05/25 00:22 50 ml Q30MIN PRN Administration HYPOGLYCEMIA Heparin Sodium (Porcine) 5,000 unit 02/05/25 09:00 Heparin Sod Inj 5000 Unit/Ml Vial SC 02/19/25 08:59 BID HANNAH Norepinephrine Bitartrate 16 mg in 250 mls @ 4.176 mls/hr 02/02/25 17:11 02/05/25 06:00 Levophed In Ns 16mg/250ml IV 03/04/25 17:10 0.03 mcg/kg/min .Q24H PRN 2.506 mls/hr PER protocol Titration Protocol 0.05 MCG/KG/MIN Cefepime HCl 2 gm/ Sodium 50 mls @ 100 mls/hr 02/02/25 20:09 02/04/25 20:52 Chloride IV 02/09/25 21:00 100 mls/hr Q12HR HANNAH Administration Dexmedetomidine/Sodium Chloride 400 mcg in 100 mls @ 4.445 mls/hr 02/03/25 10:05 Precedex Ivpb IV 03/05/25 10:04 .[id number] PRN Per PROTOCOL Protocol 0.2 MCG/KG/HR Dextrose 1,000 mls @ 100 mls/hr 02/03/25 10:15 02/03/25 23:45 D5w IV 03/05/25 10:14 0 mls/hr On Hold: 02/03/25 23:54 .Q10H HANNAH Infusion Albumin Human 25 gm in 100 mls @ 100 mls/hr 02/03/25 21:52 02/04/25 09:06 Albuminex 25% Ivpb IV 02/06/25 21:51 100 mls/hr QDAY HANNAH Administration Doxycycline Hyclate 100 mg/ 100 mls @ 100 mls/hr 02/04/25 21:00 02/04/25 20:52 Sodium Chloride IV 02/11/25 20:59 100 mls/hr BID HANNAH Administration Propofol 1,000 mg in 100 mls @ 2.688 mls/hr 02/05/25 00:41 02/05/25 06:00 Diprivan Ivpb IV 03/07/25 00:40 0 mcg/kg/min .Q24H PRN 0 mls/hr PER PROTOCOL Titration Protocol 5 MCG/KG/MIN Fentanyl Citrate 2,500 mcg in 250 mls @ 2.5 mls/hr 02/05/25 01:05 02/05/25 06:00 Sublimaze Inj 2,500 Mcg/250 Ml Bag IV 02/10/25 01:04 75 mcg/hr .Q24H PRN 7.5 mls/hr PER PROTOCOL Titration Protocol 25 MCG/HR Midodrine 10 mg 02/04/25 14:00 02/05/25 05:51 Midodrine 5 Mg Tablet PO 03/06/25 13:59 10 mg TID HANNAH Administration Ondansetron HCl 4 mg 02/02/25 11:01 Ondansetron Inj 2 Mg/Ml Inj 2 Ml IVP 03/04/25 11:00 Q6HR PRN NAUSEA OR VOMITING Pantoprazole Sodium 40 mg 02/04/25 09:00 02/04/25 20:52 Pantoprazole Inj 40 Mg Vial IVP 03/06/25 08:59 40 mg BID HANNAH Administration Plan Assessment: Patient is a 64-year-old male with history of atrial fibrillation (was previously on Eliquis), CAD status post multiple stents, CVA, wheelchair-bound, CKD, Castorena's esophagus, esophageal ulcers with past upper GI bleed, and chronic osteomyelitis of the lower thoracic spine who presented to [facility] ED on 02/02 from [facility] for altered mental status. The patient was admitted to the ICU for management of shock requiring vasopressors. Code status changed to DNR, pt is currently intubated. MRI t spine stable. NEURO #Acute encephalopathy DDx: Metabolic derangement, distributive shock Diagnostic workup: - Patient noted to have a sudden change in behavior side time on 01/31 where the patient became much less responsive and did not eat, progressing into being completely unresponsive - CT head 02/02 shows bilateral chronic subdural hygromas with mild mass effect upon the right lateral ventricle system with shift of frontal horns to the left by 3 mm - EEG completed 01/22 negative for epileptiform discharges -WBC 3.0 -> 5.5->8.5->8.1 Treatment: -On IV Doxy (02/04-), Cefepime (02/02?02/05), Zosyn 3.375 gm q6hr (02/05-) Treatment follow-up: - Daily neuroassessment #Bilateral subdural hygromas, chronic Diagnostic workup: CT head 02/02 shows bilateral chronic subdural hygromas with mild mass effect upon the right lateral ventricle system with shift of frontal horns to the left by 3 mm Treatment: - No active management at this time Treatment follow-up: - Follow-up outpatient CARDIO #Hypothermia Likely 2/2 distributive shock and insensible losses. Treatment: - Bear hugger Treatment follow-up: - CTM temperature. #Shock Likely distributive, low suspicion for cardiogenic Diagnostic workup - Patient presented with blood pressure of 83/60, which was initially responsive to 3 L of IVF bolus, but later decompensated and required Levophed to maintain MAP above 65 in the ED Patient noted to have a temperature of 86 ?F in the ED on presentation and had a fever of 102 ?F at his SNF - Patient was recently admitted to [facility] ICU for similar presentation, which had improved with IV antibiotics and hydrocortisone - Patient does have chronic osteomyelitis with a significantly large stage IV ulcer in lower thoracic region to which the patient is only able to tolerate oral antibiotics as the patient has self removed PICC lines in the past for IV antibiotics - Patient also has history of ESBL Enterococcus faecalis in urine - UA showed turbid urine with positive leukocyte esterase, nitrite negative, WBC 172, yeast, rare bacteria. - NICOM at bedside showed increased cardiac output and decreased systemic vascular resistance, unlikely cardiogenic shock Treatment: - On Levophed, MAP goal above 65 - Vancomycin (02/02-), Doxycycline (02/02-) and Cefepime (02/02?02/05), Zosyn 3.375 q6hr (02/05-) - Added midodrine 10mg TID Treatment follow-up: -Follow-up renin, aldosterone, and 17-hydroxyprogesterone - Wean pressor as tolerated #CHF exacerbation #HFpEF (55-60% EF 12/2024) Patient was noticed to have bilateral lower extremity edema and upper extremity edema Chest x-ray that show worsening vascular congestion with some pulmonary edema 02/05 Good UOP 1.5L with Bumex 1 mg x2 yesterday. Treatment plan: - Albumin 25 gm IV X1 - Bumex 1 mg x 1 (given 30 min after initiation of albumin) Treatment follow-up: - Follow-up on urine output - repeat renal function panel in the afternoon. #Lilliam Type I Nas Tele strip 02/05 @0100 with increasing FL interval and dropped beat Diagnostic Workup: - EKG Treatment - Continue to monitor tele monitoring #Atrial fibrillation Diagnostic workup: - Patient has a history of atrial fibrillation and previously took Eliquis, but this was put on hold from the patient's previous hospital admission until the patient could be re-evaluated outpatient Treatment: - Continue to hold anticoagulation Treatment follow-up: - Follow-up cardiology outpatient #Elevated troponins (resolved) #NSTEMI type II (resolved) PULM #Aspiration Pneumonia vs Pneumonitis Ddx: aspiration post intubation, trickle feeds were started 02/04 given persistent hypoglycemia Diagnostic Work up - 02/05 CXR with R lung infiltrates and diffuse R lung PNA, compared xray to pre intubation which showed clear R Lung benitez with significant L lung pna. and vascular congestion [ ] ET tube secretions culture pending Treatment - Zosyn and doxycycline (abx changed from cefepime to zosyn to provide better anaerobic coverage given high suspicion of aspiration event during intubation) #Pulmonary Edema DDx: CHF exacerbation 02/03 CXR showed worsening vascular congestion with decreased breathsounds on physical exam Treatment: Bumex 1 mg x1 Treatment follow up: - CTM vent settings. #Bilateral pleural effusions (L>R) with compressive atelectasis DDx: Healthcare facility associated pneumonia vs aspiration Diagnostic workup: - As noted on CT chest/abdomen/pelvis taken 02/02 - Patient breathing comfortably on room air without increased work of breathing on admission Treatment: - Doxycycline (02/04-) and Cefepime (02/02?02/05-) Treatment follow-up: - consider second dose of bumex 1mg x1 at 1400 GI #History of Castorena's esophagus #History of esophageal ulcers with upper GI bleed- no active bleeding stools have not demonstrated any lilibeth blood per rectum, no melenic stools noted. Abdomen is nontender on device. Diagnostic workup: - EGD 01/22 showed esophageal ulcers without active bleeding - Colonoscopy performed 01/24 showed internal hemorrhoids and mild diverticulosis in the sigmoid colon and descending colon Treatment: - Protonix 40 mg daily Treatment follow-up: - Continue to monitor CBC for possible bleed # Transaminitis (uptrending ) Ddx Transaminitis likely 2/2 ischemic inury to liver in setting of suspected distributive shock, possible that uptrending AST and ALT are 2/2 medication induced (pt was on cefepime, now on zosyn) Diagnostic workup: - AST 58 -> 54->71 - ALT 66->71 - Alk phos 225 -> 223-->261 - Abdominal ultrasound showed absent gallbladder with normal common bile duct however liver noted to be lobular in contour, suspect primary hepatocellular disease. -Prolonged PTT, INR, PT Treatment: -No active treatment at this time Treatment follow-up: -Follow-up hepatitis panel and daily CMP -consider medication induced if lfts are uptrending # ?Primary hepatocellular disease Diagnostic Workup: - Abdominal US with lobular iver contour, suspect primary hepatocellular dz. Treatment - no active treatment at this time Treatment follow up: [ ] hepatitis panel pending - daily cmp #Nutrition #Persistent Hypoglycemia patient has been NPO for several days, patient had several episodes of hypoglycemia to the 70s, NG tube in place and was initiated on trickle feeds Diagnostic Workup - Daily CMP - Bedside glucose checks q6hr NEPHRO #ARIA on CKD IV Diagnostic workup - Daily CMP, follow up PM renal panel - Cr 2.3 (on admission) --->3.3 Treatment - nephrology consulted, patient is not a candidate for HD #CKD stage IV (GFR 20) Diagnostic workup - Creatinine on admission 2.3, noted to be downtrending compared to previous creatinine values - Possible ARIA as patient's does report poor urine output on 02/02 Treatment: - Bumex 1mg x1 - Albumin 25 mg x1 - Avoid nephrotoxic drugs - Renally dose medications - Nephrology consulted, cleared for MRI t spine, state that patient is not an HD candidate. #Lactic acidosis (downtrending) Diagnostic workup: - Lactic acid 2.8 -> 1.5 --> 3.8 -> 3.3-> 3.1 - Likely up trended secondary to increased pressor support 02/04 Treatment: - Manage underlying shock with IVF and vasopressors - Zosyn and Doxycycline Treatment follow-up: - Trend lactic every 3 hour #Hyperosmolar hypernatremia Diagnostic work up Sodium 156-> 158 Serum osm 316-> 332 Free water deficit calculated at 1.6L (goal Na @145) [ ] repeat renal panel at 1400 Treatment - Free water flushes (per nephro recomendations) #Hypochloremia - stable, persists Diagnostic workup [ ] repeat renal panel at 1400 Treatment - no intervention indicated at this time #Hyperphosphatemia likely in setting of CKD IV (see above) Diagnostic work up: - Phos: 6.4-> - Daily phos labs Treatment - Sevalamer 800 NG TID #Normal anion gap metabolic acidosis- resolvng #RTA Diagnostic workup: - Albumin corrected anion gap 14.7, suggesting non-anion gap metabolic acidosis on admission -Repeat renal panel 02/03 showed bicarb 14.5, anion gap 20, lactic 3.3 -Urine electrolytes showed high urine anion gap, suggestive of RTA -Repeat renal panel with Anion gap 14, bicarb 20, Anion gap 14, Treatment: - Bicitra 30 mg 3 times daily Treatment follow-up: - Repeat renal panel in the at 1400 #Bilateral renal cysts #Atrophic left kidney Diagnostic workup - As noted on CT chest/abdomen/pelvis on 02/02 Treatment: -No active treatment at this time Treatment follow-up: - Follow up outpatient URO #Indwelling tenorio catheter- chronic Diagnostic workup: - Patient presented with tenorio catheter placed, noted to have been planned for discontinuation after the patient completed bladder exercises - Possible source of infection given bladder was contracted around tenorio catheter on CT chest/abdomen/pelvis taken 02/02 - UA showed turbid urine with positive leukocyte esterase, nitrite negative, WBC 172, yeast, rare bacteria. Treatment: -Tenorio in place -IV antibiotics as above Treatment follow-up: - Urine cultures collected 02/02, negative - Will reassess need for Tenorio catheter and possibly exchange catheter HEME #Pancytopenia (improving) Likely secondary to shock some blood noted in the oropharnx likely 2/2 trauma from NG tube placemet. Diagnostic workup: -On admission, WBC 3.0, RBC 2.71, hemoglobin 7.8, and platelet 93 -02/03: WBC improved, improved, hemoglobin 7.4. Low suspicion for active GI bleed at this time. No melena or hematemesis. -02/05: WBC 8.1 from 8.5, hemoglobin 7.9 (stable). Low suspicion for active GI bleed at this time. No melena or hematemesis. Treatment: -No active treatment at this time Treatment follow-up: - Will consider further workup for myelodysplastic syndromes - Transfuse if hemoglobin less than 7 ENDO No active problems ID #History of chronic osteomyelitis T12-L2 #History of Enterococcus faecalis in urine Diagnostic workup: - Patient does have a history of Enterococcus faecalis in urine and chronic osteomyelitis with previous wound cultures growing pansensitive MSSA - MRI lumbar spine 12/15/2024 notes osteomyelitis in T12-L2, patient had previously pulled out PICC line during past hospitalizations, so was recently discharged with oral antibiotics (keflex and doxy, with end date 03/04) - MRI t spine 02/05/2025 notes no acute thoracic fracture, Mild diffuse thoracic disc narrowing, No abnormal enhancing osseous epidural or thoracic cord lesions noted Treatment: - IV antibiotics as above SKIN #Stage IV ulcer, lower back, 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 discharged on doxy and keflex, patient was unable to tolerate PICC line as per prior documentation, 03/04 end date for treatment with doxycycline Diagnostic workup - Lower back ulcer (on admission estimate size 5 cm x 3 cm x 0.5 cm) with exposure to subcutaneous tissue, slight bloody discharge without expression of pus noted on admission - Patient does have a history of a chronic stage IV ulcer in his mid back, possible source of chronic osteomyelitis during previous admissions - MRI T spine 02/05/2025 notes no acute thoracic fracture, Mild diffuse thoracic disc narrowing, No abnormal enhancing osseous epidural or thoracic cord lesions noted (exam limited by patient motion) Treatment: - Wound care referral, pending wound care recs. - Keep patient on his sides - Antibiotics as above, continue doxy Treatment follow-up: - Monitor size and characteristics of wound daily, if worsening consider wound culture and referral to general surgery for debridement #Multiple scattered scabs Diagnostic workup: -On exam, patient has multiple diffuse and scattered scabs noted throughout the body, most numerous and prominent on bilateral upper extremities and chest - Likely secondary to scratching Treatment: - No active treatment at this time as patient is not scratching anymore Treatment follow-up: - Consider resolve or topical steroid if patient resumes scratching #Blanching Macular Rash on Abdomen Diagnostic work up - On exam, noted to have diffuse blanching macular rash. - possibly 2/2 mild allergic reaction Treatment - no active treatment at this time, patient is currently intubated, so airway is protected Treatment Follow up - consider diphenhydramine if rash worsens ICU Health maintenance: Mechanical ventilation: Yes, Intubated Sedation: Fent, propophol was discontinued overnight for bradycardia Diet: NPO, NG tube, with trickle feeds ongoing DVT prophylaxis: Heparin 5000 q8hr SQ GI prophylaxis: Protonix 40 QD given patient is currently intubated Tenorio: Yes Lines: PIV, right IJ central line, left radial arterial line Antibiotics: Doxycycline, Zosyn (renally dosed) CODE STATUS: Full Case disclosed with my senior resident Dr. Benitez and my Attending Dr. Clayton Bright MD PGY1
--- NOTE | 2025-02-05 08:06 | ESPR_ITS ---
Documentation for date of: 02/05/25 Subjective Subjective Interval history: Reason for consult: ARIA on CKD History of present illness: Agustin Schrader 64M with history of atrial fibrillation (was previously on Eliquis), CAD status post multiple stents, CVA, wheelchair-bound, CKD, Castorena's esophagus, esophageal ulcers with past upper GI bleed, and chronic osteomyelitis of the lower thoracic spine who presented to [facility] ED on 02/02 from [facility] for altered mental status. The patient was admitted to the ICU for management of shock requiring vasopressors. This patient is very well-known to [facility] and was recently discharged on 01/27 after presenting very similarly. At that time, the patient was admitted to ICU for management of shock requiring vasopressors, was found to have small and stable subdural hemorrhage which prompted neurology to recommend holding the patient's anticoagulation, and discharged on his home regimen of doxycycline and Keflex which was prescribed until per ID consultation from her previous hospitalization for the patient's chronic osteomyelitis. It is unclear how much mental capabilities the patient recovered as the patient's baseline and resolved the patient having limited vocabulary, but is able to eat on his own. The patient remained stable for a few days until around 01/31 when the noticed that the patient became much less responsive and would not eat his food. On 02/02 in the morning, nursing staff noted that the patient had hypoglycemia with a blood glucose of 55, hypotension, and a fever of 102 ?F. According to the patient's , the patient was seemingly tensed up and appeared to be silently screaming the night before. The believes that the patient is in pain and is trying to communicate, but is unable to. Additionally, the patient's notes that the patient's arms became swollen, but the swelling has since decreased with some residual swelling in the patient's right arm. Of note, the patient was made limited code during the previous hospitalization, but the patient's has revoked that and made the patient full code for this hospitalization. The patient's has signed a POLST form reflecting this decision. The patient was unable to provide any history as he was unresponsive and seemingly staring off into space with random jerking motions. Nephrology consulted for ARIA on CKD IV. 02/04/2025: Patient seen and examined at bedside in ICU. Patient is not arousable to verbal stimulation, grimacing and groaning with sternal rub, sleepy. Patient on high flow 40L and levophed. Nephrology consulted for ARIA on CKD 4, cleared from nephrology to obtain low ionic contrast MRI spine. Patient is clinically hypervolemic and fluid overloaded, recommend against further IVF. Given clinical picture, patient is not a candidate for hemodialysis as he has significant comorbidities such as hx of osteomyelitis and frequent episodes of sepsis requiring hospitalization. 02/05/25: Patient seen and examined at bedside in ICU. Patient was intubated overnight due to acute hypoxic respiratory failure. Continues to be on Levophed, now also on propofol. Had good urine output s/p IV Bumex 1 mg x1 overnight. Recommend to schedule IV Bumex 2 mg daily with IV albumin 25g BID. Sodium increased to 158, recommend 100 mL/hr free water flushes with tube feeds (started overnight). Creatinine worsening however given poor prognosis, patient is not a candidate for HD. As noted yesterday, patient is cleared for low ionic contrast MRI spine. Exam Vital Signs Temp Pulse Resp BP Pulse Ox O2 Del Method O2 Flow Rate 96.9 F 61 16 98/54 L 100 Room Air 15 02/05/25 04:07 02/05/25 06:02 02/05/25 06:00 02/05/25 06:00 02/05/25 06:02 02/03/25 16:01 02/04/25 19:59 FiO2 30 02/05/25 07:35 Narrative Exam Physical Exam General: Intubated and sedated. HEENT: Normocephalic, atraumatic, mucous membranes dry. Right IJ central line. NG tube placed. Heart: Irregular rate and rhythm, normal S1 and S2, no murmurs. Lungs: Clear to auscultation with no wheezing or crackles. Abdomen: Soft, nondistended, positive bowel sounds. Neurologic: Unable to assess due to sedation. Extremities: Non pitting edema of bilateral upper and lower extremities. Skin: No rash or ecchymoses. Dry flaky skin with scattered scabs, mostly around upper extremities. Objective Labs 02/06/25 04:19 02/06/25 04:19 Labs: Laboratory Results - last 24 hr 02/03/25 02/04/25 02/04/25 20:45 08:40 17:11 WBC RBC Hgb Hct MCV MCH MCHC RDW Std Deviation Plt Count Neut % (Auto) Lymph % (Auto) [place] % (Auto) Eos % (Auto) Baso % (Auto) Neut # (Auto) Lymph # (Auto) [place] # (Auto) Eos # (Auto) Baso # (Auto) Immature Gran # (Auto) Absolute Nucleated RBC Immature Gran % Nucleated RBC % PT INR APTT Puncture Site ABG pH ABG pCO2 ABG pO2 ABG HCO3 ABG O2 Saturation ABG Base Excess VBG pH 7.47 VBG pCO2 27 L VBG pO2 169 H D VBG O2 Sat (Gretel) 100 H VBG Base Excess -4 L Oxygen Liter Flow FiO2 Sodium 156 H Potassium 4.4 Chloride 122 H* Carbon Dioxide 21.4 Anion Gap 13 BUN 37 H Creatinine 3.1 H Estim Creat Clear Calc 26.9 L eGFR 22 L BUN/Creatinine Ratio 12 Glucose 80 Calculated Osmolality 316 H Calcium 8.8 Corrected Calcium 9.8 Phosphorus 6.3 H Magnesium Total Bilirubin AST ALT Alkaline Phosphatase Total Protein Albumin 2.8 L Globulin Albumin/Globulin Ratio Hepatitis A IgM Ab Non Reactive Hep Bs Antigen Non Reactive Hep B Core IgM Ab Non Reactive Hepatitis C Antibody Non Reactive 02/04/25 02/05/25 02/05/25 19:16 00:47 01:25 WBC RBC Hgb 7.2 L Hct 22.0 L MCV MCH MCHC RDW Std Deviation Plt Count Neut % (Auto) Lymph % (Auto) [place] % (Auto) Eos % (Auto) Baso % (Auto) Neut # (Auto) Lymph # (Auto) [place] # (Auto) Eos # (Auto) Baso # (Auto) Immature Gran # (Auto) Absolute Nucleated RBC Immature Gran % Nucleated RBC % PT INR APTT Puncture Site Arterial Line Arterial Line ABG pH 7.20 L D 7.27 L ABG pCO2 58 H D 46 D ABG pO2 124 H D 358 H D ABG HCO3 22 21 ABG O2 Saturation 98 100 H ABG Base Excess -6 L -6 L VBG pH VBG pCO2 VBG pO2 VBG O2 Sat (Gretel) VBG Base Excess Oxygen Liter Flow 15 FiO2 100 Sodium 156 H Potassium 4.4 Chloride 124 H* Carbon Dioxide 21.6 Anion Gap 10 BUN 36 H Creatinine 3.1 H Estim Creat Clear Calc 26.9 L eGFR 22 L BUN/Creatinine Ratio 12 Glucose 72 L Calculated Osmolality 316 H Calcium 8.8 Corrected Calcium 9.8 Phosphorus 6.3 H Magnesium Total Bilirubin AST ALT Alkaline Phosphatase Total Protein Albumin 2.8 L Globulin Albumin/Globulin Ratio Hepatitis A IgM Ab Hep Bs Antigen Hep B Core IgM Ab Hepatitis C Antibody 02/05/25 02/05/25 02:47 04:36 WBC 8.1 RBC 2.81 L Hgb 7.9 L Hct 24.4 L MCV 87 MCH 28.1 MCHC 32.4 RDW Std Deviation 67.0 H Plt Count 113 L Neut % (Auto) 84 H Lymph % (Auto) 7 L [place] % (Auto) 3 Eos % (Auto) 5 Baso % (Auto) 0 Neut # (Auto) 6.8 Lymph # (Auto) 0.6 L [place] # (Auto) 0.2 Eos # (Auto) 0.4 Baso # (Auto) 0.0 Immature Gran # (Auto) 0.07 H Absolute Nucleated RBC 0.03 H Immature Gran % 1 H Nucleated RBC % 0 PT 16.8 H INR 1.6 H APTT 35.0 Puncture Site Arterial Line ABG pH 7.45 D ABG pCO2 29 L D ABG pO2 333 H D ABG HCO3 20 ABG O2 Saturation 100 H ABG Base Excess -3 VBG pH VBG pCO2 VBG pO2 VBG O2 Sat (Gretel) VBG Base Excess Oxygen Liter Flow FiO2 70 Sodium 158 H Potassium 4.2 Chloride 124 H* Carbon Dioxide 20.4 Anion Gap 14 BUN 40 H Creatinine 3.3 H Estim Creat Clear Calc 25.2 L eGFR 20 L BUN/Creatinine Ratio 12 Glucose 96 Calculated Osmolality 322 H Calcium 8.8 Corrected Calcium 9.8 Phosphorus 6.4 H Magnesium 2.6 Total Bilirubin 0.4 AST 93 H ALT 71 H Alkaline Phosphatase 261 H D Total Protein 4.9 L Albumin 2.8 L Globulin 2.1 L Albumin/Globulin Ratio 1.3 Hepatitis A IgM Ab Hep Bs Antigen Hep B Core IgM Ab Hepatitis C Antibody ABG Interpretation ABG results: 02/02/25 02/03/25 02/03/25 19:07 11:09 23:50 ABG pH 7.46 H ABG pCO2 26 L ABG pO2 64 L ABG HCO3 19 L ABG O2 Saturation 95 ABG Base Excess -5 L VBG pH 7.38 7.40 VBG pCO2 30 L 23 L VBG pO2 65 H 81 H VBG Base Excess -7 L -10 L 02/04/25 02/05/25 02/05/25 08:40 00:47 01:25 ABG pH 7.20 L D 7.27 L ABG pCO2 58 H D 46 D ABG pO2 124 H D 358 H D ABG HCO3 22 21 ABG O2 Saturation 98 100 H ABG Base Excess -6 L -6 L VBG pH 7.47 VBG pCO2 27 L VBG pO2 169 H D VBG Base Excess -4 L 02/05/25 04:36 ABG pH 7.45 D ABG pCO2 29 L D ABG pO2 333 H D ABG HCO3 20 ABG O2 Saturation 100 H ABG Base Excess -3 VBG pH VBG pCO2 VBG pO2 VBG Base Excess Quality Measures Quality Measures VTE prophylaxis and sepsis Current suspected stage: ruled out Possible source: pulmonary, genitourinary and skin/soft tissue Blood cultures ordered: yes Antibiotic ordered: Yes Assessment & Plan Assessment Current Active Medications: Generic Name Dose Route Start Last Admin Trade Name Freq PRN Reason Stop Dose Admin Citric Acid/Sodium Citrate 30 ml 02/03/25 19:09 02/04/25 20:52 Citric Acid/Sodium Citr 15 Ml Udc (Bicitra) NG 03/05/25 19:08 30 ml BID HANNAH Administration Dextrose 50 ml 02/03/25 00:23 02/03/25 05:40 Dextrose 50%-Water Inj 50 Ml Syringe IVP 03/05/25 00:22 50 ml Q30MIN PRN Administration HYPOGLYCEMIA Heparin Sodium (Porcine) 5,000 unit 02/05/25 09:00 Heparin Sod Inj 5000 Unit/Ml Vial SC 02/19/25 08:59 BID HANNAH Norepinephrine Bitartrate 16 mg in 250 mls @ 4.176 mls/hr 02/02/25 17:11 02/05/25 06:00 Levophed In Ns 16mg/250ml IV 03/04/25 17:10 0.03 mcg/kg/min .Q24H PRN 2.506 mls/hr PER protocol Titration Protocol 0.05 MCG/KG/MIN Cefepime HCl 2 gm/ Sodium 50 mls @ 100 mls/hr 02/02/25 20:09 02/04/25 20:52 Chloride IV 02/09/25 21:00 100 mls/hr Q12HR HANNAH Administration Dexmedetomidine/Sodium Chloride 400 mcg in 100 mls @ 4.445 mls/hr 02/03/25 10:05 Precedex Ivpb IV 03/05/25 10:04 .[id number] PRN Per PROTOCOL Protocol 0.2 MCG/KG/HR Dextrose 1,000 mls @ 100 mls/hr 02/03/25 10:15 02/03/25 23:45 D5w IV 03/05/25 10:14 0 mls/hr On Hold: 02/03/25 23:54 .Q10H HANNAH Infusion Albumin Human 25 gm in 100 mls @ 100 mls/hr 02/03/25 21:52 02/04/25 09:06 Albuminex 25% Ivpb IV 02/06/25 21:51 100 mls/hr QDAY HANNAH Administration Doxycycline Hyclate 100 mg/ 100 mls @ 100 mls/hr 02/04/25 21:00 02/04/25 20:52 Sodium Chloride IV 02/11/25 20:59 100 mls/hr BID HANNAH Administration Propofol 1,000 mg in 100 mls @ 2.688 mls/hr 02/05/25 00:41 02/05/25 06:00 Diprivan Ivpb IV 03/07/25 00:40 0 mcg/kg/min .Q24H PRN 0 mls/hr PER PROTOCOL Titration Protocol 5 MCG/KG/MIN Fentanyl Citrate 2,500 mcg in 250 mls @ 2.5 mls/hr 02/05/25 01:05 02/05/25 06:00 Sublimaze Inj 2,500 Mcg/250 Ml Bag IV 02/10/25 01:04 75 mcg/hr .Q24H PRN 7.5 mls/hr PER PROTOCOL Titration Protocol 25 MCG/HR Midodrine 10 mg 02/04/25 14:00 02/05/25 05:51 Midodrine 5 Mg Tablet PO 03/06/25 13:59 10 mg TID HANNAH Administration Ondansetron HCl 4 mg 02/02/25 11:01 Ondansetron Inj 2 Mg/Ml Inj 2 Ml IVP 03/04/25 11:00 Q6HR PRN NAUSEA OR VOMITING Pantoprazole Sodium 40 mg 02/04/25 09:00 02/04/25 20:52 Pantoprazole Inj 40 Mg Vial IVP 03/06/25 08:59 40 mg BID HANNAH Administration Plan Patient is a 64 year old male with past medical history of atrial fibrillation (was previously on Eliquis), CAD status post multiple stents, CVA, wheelchair- bound, CKD, Castorena's esophagus, esophageal ulcers with past upper GI bleed, and chronic osteomyelitis of the lower thoracic spine who presented to [facility] ED on 02/02 from [facility] for altered mental status. The patient was admitted to the ICU for management of shock requiring vasopressors. #ARIA on CKD IV #Bilateral renal cysts #Atrophic left kidney - Known history of CKD stage IV with baseline creatinine 1.7-2.2 on previous hospitalization for similar presentation. reports poor UOP on 02/02. - Creatinine 2.3 --> 2.8 (02/04) --> 3.1 (02/04) -> 3.3 (02/05) - CTAP showed bilateral renal cysts, severe atrophy of left kidney - Likely 2/2 frequent insults i.e. sepsis to pre-existing CKD stage IV. ARIA likely secondary to shock. Plan: - Start IV albumin 25 g TID with IV Bumex 2 mg daily, uptitrate as needed based on daily volume status - Cleared from nephrology to obtain low ionic contrast MRI spine - Given clinical picture, patient is not a candidate for hemodialysis given bed bound status as he will be unable to attend sessions and overall poor prognosis with large chronic wound and frequent episodes of sepsis requiring hospitalization. - Recommend primary team to have goals of care conversation with - Strict I/Os, follow UOP closely, avoid nephrotoxic agents and renally dose #Hypernatremia - Sodium on admission 151, increased to 158. Likely secondary to dehydration and decreased oral intake prior to admission. Per chart review, appeared hypovolemic on admission. - Patient now hypervolemic s/p IVF and D5W with decreased urine output for the past 2 days. - Urine sodium 02/03 59.9. Glucose 70-96. - Free water deficit 3.1. Plan: - 100 mL free water flushes with tube feeds given current hypervolemic state #Shock #Hypothermia #Acute encephalopathy #Bilateral subdural hygromas, chronic #Atrial fibrillation #Elevated troponins (resolved) #NSTEMI type II (resolved) #Bilateral pleural effusions (L>R) with compressive atelectasis #History of Castorena's esophagus #History of esophageal ulcers with upper GI bleed # Transaminitis (improving) # ?Primary hepatocellular disease #Lactic acidosis #Indwelling tenorio catheter #Pancytopenia (improving) #Electrolyte abnormalities #Hyperkalemia #Hyperchloremia #Normal anion gap metabolic acidosis #HAGMA #RTA #History of Enterococcus faecalis in urine #History of chronic osteomyelitis T12-L2 Plan: - Management per ICU team Thank you for the consultation and allowing participation in patient's care. Patient plan of care was discussed with the attending physician, Dr. Summers. Lashanda Torres DO, PGY-1 Attending Provider Attestation/Addendum Patient currently seen and examined with resident physician Dr. Torres. Note reviewed, agree with findings and recommendations. Patient currently seen in ICU. Has been in the hospital several times. Patient practically bedbound with decubitus ulcer In the thoracic spine area. Planning to do MRI with contrast. Due to his advanced kidney problem-recommend low ionic contrast. ARIA worsening- ATN. Not a candidate for dialysis. Bed bound, hemodynamic instability. Goals of care to d/w . Care discussed with ICU team.
[2025-02-05 08:20] LABS: Base Excess -4 (-3-3); HCO3 21 mEq/L (20-26); Inspired Oxygen, FIO2 30 %; O2 Saturation 99 % (91-98); PCO2 35 mmHg (32.0-48.0); PO2 126 mmHg (83-108); pH, Arterial 7.39 (7.35-7.45)
[2025-02-05 08:21] LABS: Puncture Site Arterial Line
[2025-02-05] MEDS: DOXYCYCLINE INJ 100 MG in SODIUM CHLORIDE 0.9% (POP) 100 ML IV ×2 (08:25→20:06)
[2025-02-05] MEDS: ALBUMIN HUMAN-KJDA 25% IVPB 25 GM/100 ML BTL IV ×2 (08:25→18:31)
[2025-02-05] MEDS: HEPARIN SOD INJ 5000 UNIT/ML VIAL SC ×3 (08:25→21:31)
[2025-02-05] MEDS: CEFEPIME INJ 2 GM in SODIUM CHLORIDE 0.9% (Popper) 50 ML IV (08:25)
[2025-02-05] MEDS: CITRIC ACID/SODIUM CITR 15 ML UDC (BICITRA) 30 ML NG ×2 (08:25→20:05)
--- NOTE | 2025-02-05 09:14 | PC.SS ---
[facility] meeting scheduled today for 11:00 am with patient's spouse, Sheila Vogel . [employer] updated ICU residential team.
[2025-02-05] MEDS: PIPER/TAZO 3.375 GM PREMIX 3.375 GM/50 ML BAG IV ×2 (12:42→21:33)
--- NOTE | 2025-02-05 13:04 | PC.SS ---
Update: [facility] meeting conducted with patient's spouse. Medical team provided overview on patient's medical condition. Spouse informed that patient is not a candidate for dialysis. Patient's code status changed to DNR.
--- NOTE | 2025-02-05 13:13 | PD.INTPROG ---
Documentation for date of: 02/05/25 Subjective Subjective Interval history: This is a 64-year-old male well-known to the service who was admitted on 1128 for a intermediate. He was admitted for hypotension and sepsis which progressed to septic shock.. Overnight he decompensated and was found to be aspirating. His mentation continued to decline. He was intubated for airway protection. He was started on prop and Fent. He was noted to have some pauses on the monitor as well as some tacky bradycardia arrhythmias. His propofol was stopped. His chest x-ray is noted to have a significant worsening of right sided infiltrate. Patient was seen with nephrology today. The patient is not a good candidate for dialysis. Remains on vasopressor support. Critical Care Note Critical care time (min.): 45 Exam Vital Signs Temp Pulse Resp BP Pulse Ox O2 Del Method O2 Flow Rate 97.0 F 71 16 148/73 H 100 Room Air 15 02/05/25 12:00 02/05/25 12:45 02/05/25 06:00 02/05/25 12:45 02/05/25 12:45 02/03/25 16:01 02/04/25 19:59 FiO2 30 02/05/25 12:00 Narrative Exam General-intubated, on minimal sedation, no acute distress, obese body habitus HEENT-normocephalic, atraumatic, sclera icteric, oral mucosa is dry, ET tube in place, OG tube in place, poor dentition Chest-diminished breath sounds bilaterally with some crackles at bases, heart regular rhythmic, no gross murmurs auscultated on exam, no increased work of breathing Abdomen-soft, nontender, sounds present, no rebound or guarding, thoracic decubitus present which is approximately 10 cm in length with tunneling under the borders Extremities-3+ pitting edema throughout, pulses weakly palpable, no clubbing, no mottling Vent AC/VC Drips Levophed Fentanyl Physical Exam Completion Physical Exam Complete?: Yes 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 02/06/25 08:25 02/06/25 04:19 Labs: Laboratory Results - last 24 hr 02/03/25 02/04/25 02/04/25 20:45 17:11 19:16 WBC RBC Hgb 7.2 L Hct 22.0 L MCV MCH MCHC RDW Std Deviation Plt Count Neut % (Auto) Lymph % (Auto) [place] % (Auto) Eos % (Auto) Baso % (Auto) Neut # (Auto) Lymph # (Auto) [place] # (Auto) Eos # (Auto) Baso # (Auto) Immature Gran # (Auto) Absolute Nucleated RBC Immature Gran % Nucleated RBC % PT INR APTT Puncture Site ABG pH ABG pCO2 ABG pO2 ABG HCO3 ABG O2 Saturation ABG Base Excess Oxygen Liter Flow FiO2 Sodium 156 H 156 H Potassium 4.4 4.4 Chloride 122 H* 124 H* Carbon Dioxide 21.4 21.6 Anion Gap 13 10 BUN 37 H 36 H Creatinine 3.1 H 3.1 H Estim Creat Clear Calc 26.9 L 26.9 L eGFR 22 L 22 L BUN/Creatinine Ratio 12 12 Glucose 80 72 L Calculated Osmolality 316 H 316 H Calcium 8.8 8.8 Corrected Calcium 9.8 9.8 Phosphorus 6.3 H 6.3 H Magnesium Total Bilirubin AST ALT Alkaline Phosphatase Total Protein Albumin 2.8 L 2.8 L Globulin Albumin/Globulin Ratio Hepatitis A IgM Ab Non Reactive Hep Bs Antigen Non Reactive Hep B Core IgM Ab Non Reactive Hepatitis C Antibody Non Reactive 02/05/25 02/05/25 02/05/25 00:47 01:25 02:47 WBC 8.1 RBC 2.81 L Hgb 7.9 L Hct 24.4 L MCV 87 MCH 28.1 MCHC 32.4 RDW Std Deviation 67.0 H Plt Count 113 L Neut % (Auto) 84 H Lymph % (Auto) 7 L [place] % (Auto) 3 Eos % (Auto) 5 Baso % (Auto) 0 Neut # (Auto) 6.8 Lymph # (Auto) 0.6 L [place] # (Auto) 0.2 Eos # (Auto) 0.4 Baso # (Auto) 0.0 Immature Gran # (Auto) 0.07 H Absolute Nucleated RBC 0.03 H Immature Gran % 1 H Nucleated RBC % 0 PT 16.8 H INR 1.6 H APTT 35.0 Puncture Site Arterial Line Arterial Line ABG pH 7.20 L D 7.27 L ABG pCO2 58 H D 46 D ABG pO2 124 H D 358 H D ABG HCO3 22 21 ABG O2 Saturation 98 100 H ABG Base Excess -6 L -6 L Oxygen Liter Flow 15 FiO2 100 Sodium 158 H Potassium 4.2 Chloride 124 H* Carbon Dioxide 20.4 Anion Gap 14 BUN 40 H Creatinine 3.3 H Estim Creat Clear Calc 25.2 L eGFR 20 L BUN/Creatinine Ratio 12 Glucose 96 Calculated Osmolality 322 H Calcium 8.8 Corrected Calcium 9.8 Phosphorus 6.4 H Magnesium 2.6 Total Bilirubin 0.4 AST 93 H ALT 71 H Alkaline Phosphatase 261 H D Total Protein 4.9 L Albumin 2.8 L Globulin 2.1 L Albumin/Globulin Ratio 1.3 Hepatitis A IgM Ab Hep Bs Antigen Hep B Core IgM Ab Hepatitis C Antibody 02/05/25 02/05/25 04:36 08:10 WBC RBC Hgb Hct MCV MCH MCHC RDW Std Deviation Plt Count Neut % (Auto) Lymph % (Auto) [place] % (Auto) Eos % (Auto) Baso % (Auto) Neut # (Auto) Lymph # (Auto) [place] # (Auto) Eos # (Auto) Baso # (Auto) Immature Gran # (Auto) Absolute Nucleated RBC Immature Gran % Nucleated RBC % PT INR APTT Puncture Site Arterial Line Arterial Line ABG pH 7.45 D 7.39 ABG pCO2 29 L D 35 ABG pO2 333 H D 126 H D ABG HCO3 20 21 ABG O2 Saturation 100 H 99 H ABG Base Excess -3 -4 L Oxygen Liter Flow FiO2 70 30 Sodium Potassium Chloride Carbon Dioxide Anion Gap BUN Creatinine Estim Creat Clear Calc eGFR BUN/Creatinine Ratio Glucose Calculated Osmolality Calcium Corrected Calcium Phosphorus Magnesium Total Bilirubin AST ALT Alkaline Phosphatase Total Protein Albumin Globulin Albumin/Globulin Ratio Hepatitis A IgM Ab Hep Bs Antigen Hep B Core IgM Ab Hepatitis C Antibody Assessment & Plan Additional Assessment Additional Assessment: In brief this is a 64-year-old male admitted to the ICU for 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 Patient's baseline is suboptimal at best. Currently he is on fentanyl for some pain and discomfort. CV Shock-distributive and felt to be underlying sepsis though cultures have all been negative, continued antibiotics Resp Acute hypoxic respiratory failure -currently intubated on mechanical ventilation, follow-up chest x-ray and ABG aspiration pneumonia-continue current antibiotics and follow-up on cultures Pleural effusion-diuresis as able, will evaluate if large enough for thoracentesis Renal Acute on chronic kidney disease-nephrology recommendations appreciated -Monitor I's and O's Anasarca-Will diurese as able -Give albumin and Bumex Hypernatremia-will provide free water Hypophosphatemia-secondary acute kidney injury GI GI prophylaxis-PPI Nutrition-tube feeds Transaminitis-this is slowly worsening, felt to be secondary to his shock. T. bili is within normal limits therefore not an obstructive pattern Endo Stable Heme Anemia-no active bleeding noted -Did receive a unit of PRBCs for hemoglobin of 5.8 yesterday Thrombocytopenia-in the setting of sepsis - No active bleeding, no need for transfusion DVT prophylaxis-heparin 5000 every 8 ID Sepsis-meets SIRS criteria with multiple possible sources. On antibiotics. It is noted that no cultures are positive but the patient has been on antibiotics for several weeks at this point in time. Case discussed with ICU team, discussed with nephrology I did have a goals of care discussion with the patient's today. She has seen him have more frequent admissions and more frequent admissions to the ICU over the last couple of months. She agrees that he appears to be in pain and suffering. At this point in time she notes that he is bedbound and has a very poor long-term and medium term prognosis. She would like to make the patient more comfortable at this point in time. The would like to proceed with changing the patient's CODE STATUS to DNR and she will contact the rest of the family to come in. Once additional family's have come in to see the patient they will discuss when and whether to proceed with comfort care. Labs imaging and records reviewed Approximately 45 critical care was required evaluation, exam, review, intervention, discussion formulation of plan of care plus critically ill patient with shock and acute respiratory failure who is at high risk for further and ongoing decompensation Provider Notation Provider Notation: Although this document has been carefully reviewed, there may still be some phonetic and other typographical errors. These errors are purely grammatical due to imperfections in the software program and should not be construed in any way to compromise the substance of the patient's medical care during this visit. Thank you for the opportunity and privilege in assisting you with this patient's care and management.
[2025-02-05 14:44] LABS: Albumin, Serum 3.1 gm/dL (3.4-4.8); Anion Gap 14 (7-16); BUN/Creatinine Ratio 12 Ratio (12-20); Blood Urea Nitrogen 41 mg/dL (9-23); Calcium 9.3 mg/dL (8.3-10.6); Calcium (Corrected) 10.0 mg/dL (8.5-10.1); Carbon Dioxide 20.9 mMol/L (20.0-31.0); Chloride 123 mMol/L (98-107); Creatinine (Component) 3.4 mg/dL (0.6-1.3); Estimated Creatinine Clearance 24.5 mL/min (>60); Glucose 116 mg/dL (74-106); LDH (Lactate Dehydrogenase) 229 U/L (120-246); Osmolality,Calculated 323 (275-295); Phosphorous 5.8 mg/dL (2.4-5.1); Potassium 3.9 mMol/L (3.4-5.1); Sodium 158 mMol/L (136-145); eGFR 20 See Note
[2025-02-05] MEDS: SEVELAMER CARBONATE 800 MG TABLET NG ×2 (15:00→21:33)
[2025-02-06] VITALS (110 sets, daily range): BP systolic 28–150; BP diastolic 24–71; PULSE 43–92; RESP 12–26; TEMP 36.2–37.7; O2SAT 98–100; BMI 29.5
[2025-02-06] MEDS: ALBUMIN HUMAN-KJDA 25% IVPB 25 GM/100 ML BTL IV (02:36)
[2025-02-06] MEDS: BUMETANIDE INJ 0.25 MG/ML VIAL 4 ML 1 MG IVP (03:57)
--- NOTE | 2025-02-06 04:34 | PC.RT ---
0428 abg blood sample left at lab for testing. technician automatic made aware.
[2025-02-06 04:38] LABS: Base Excess -1 (-3-3); HCO3 23 mEq/L (20-26); Inspired Oxygen, FIO2 30 %; O2 Saturation 100 % (91-98); PCO2 32 mmHg (32.0-48.0); PO2 147 mmHg (83-108); pH, Arterial 7.47 (7.35-7.45)
[2025-02-06 04:51] LABS: Base Excess, Venous 0 (-3-3); O2 Saturation, Venous 100 % (96-97); PCO2, Venous 31 mmHg (36-56); PO2, Venous 161 mmHg (15-58); pH, Venous 7.49 (7.33-7.66)
[2025-02-06 04:53] LABS: Allen Test Not Performed; Puncture Site Arterial Line
--- NOTE | 2025-02-06 05:00 | XR_ITS ---
EXAMINATION: AP chest single view TECHNIQUE: AP portable semiupright chest single view Date and time: February 06 2025, 0525 hours, comparison February 05, 2025 0510 hours INDICATIONS: Hypoxic respiratory failure, pneumonia ARDS on earlier chest films FINDINGS: The film is rotated LPO Diffuse significant right lung pneumonia, pneumonia left base Mild associated heart failure with enlarged left ventricle and vascular congestion Right internal jugular central line tip right atrium Endotracheal tube tip 20 mm above ernestine IMPRESSION: Diffuse significant right lung pneumonia Milder pneumonia left base Mild associated heart failure Orogastric tube in the stomach the tip is below the level of the film
[2025-02-06 05:01] LABS: Basophils # (Auto) 0.0 Thou/mm3 (0.0-0.2); Basophils % (Auto) 0 % (0-2.5); Eosinophils # (Auto) 0.5 Thou/mm3 (0.0-0.5); Eosinophils % (Auto) 12 % (0-10); Immature Granulocytes Auto 0.03 Thou/mm3 (0.00-0.00); Lymphocytes # (Auto) 0.6 Thou/mm3 (1.0-4.8); Lymphocytes % (Auto) 16 % (10-50); Mean Corpuscular HGB Conc 32.3 g/dl (31.0-37.0); Mean Corpuscular Hemoglobin 28.0 pg (25.0-35.0); Mean Corpuscular Volume 87 fL (80-100); Monocytes # (Auto) 0.2 Thou/mm3 (0.0-0.8); Monocytes % (Auto) 5 % (0-12); Neutrophils # (Auto) 2.6 Thou/mm3 (1.8-7.7); Neutrophils % (Auto) 66 % (37-80); Nucleated Red Blood Cell # 0.00 Thou/mm3 (0.00-0.00); Nucleated Red Blood Cell % 0 /100 WBC (0); RDW Standard Deviation 64.9 fL (35.1-43.9); Red Blood Count 2.14 Miln/mm3 (4.50-5.90); White Blood Count 3.9 Thou/mm3 (3.8-10.6)
[2025-02-06 05:08] LABS: Hematocrit 18.6 % (41.0-53.0); Hemoglobin 6.0 g/dL (13.5-16.0); Platelet Count 52 Thou/mm3 (140-440)
[2025-02-06] MEDS: MIDODRINE 5 MG TABLET 10 MG PO ×3 (05:35→20:55)
[2025-02-06] MEDS: HEPARIN SOD INJ 5000 UNIT/ML VIAL SC ×2 (05:35→20:56)
[2025-02-06] MEDS: PIPER/TAZO 3.375 GM PREMIX 3.375 GM/50 ML BAG IV ×3 (05:36→20:56)
[2025-02-06] MEDS: DEXTROSE 50%-WATER INJ 50 ML SYRINGE IVP ×2 (05:36→12:17)
[2025-02-06] MEDS: SEVELAMER CARBONATE 800 MG TABLET NG ×3 (05:36→20:56)
[2025-02-06 05:47] LABS: Alanine Aminotransferase 40 U/L (10-49); Albumin, Serum 3.2 gm/dL (3.4-4.8); Alkaline Phosphatase 175 U/L (46-116); Anion Gap 15 (7-16); Aspartate Amino Transferase 40 U/L (0-34); BUN/Creatinine Ratio 12 Ratio (12-20); Bilirubin,Total 0.4 mg/dL (0.3-1.2); Blood Urea Nitrogen 47 mg/dL (9-23); Calcium 9.1 mg/dL (8.3-10.6); Calcium (Corrected) 9.7 mg/dL (8.5-10.1); Carbon Dioxide 23.3 mMol/L (20.0-31.0); Chloride 124 mMol/L (98-107); Creatinine (Component) 3.8 mg/dL (0.6-1.3); Estimated Creatinine Clearance 21.9 mL/min (>60); Glucose 81 mg/dL (74-106); Magnesium 2.3 mg/dL (1.6-2.6); Osmolality,Calculated 331 (275-295); Phosphorous 5.5 mg/dL (2.4-5.1); Potassium 3.8 mMol/L (3.4-5.1); eGFR 17 See Note
[2025-02-06 06:17] LABS: Sodium 162 mMol/L (136-145)
--- NOTE | 2025-02-06 08:12 | ESPR_ITS ---
<Statement entered by Ryan Benitez MD - 02/06/25 19:31> I have reviewed the note and agree with the resident's assessment & plan with exceptions as below. I have personally reviewed labs, imaging, home meds/prior records, examined the patient, formulated and discussed management plan with the IM team. Patient examined at bedside today. Morning labs included patient's sodium continuing to be elevated at 162, urine output 1.2 L for the past 24 hours with 50 cc/hour. Overnight, trickle feeds were turned off due to concern for hypoglycemia. Patient was weaned off vasopressors today. Patient's prognosis remains guarded at this time. Patient's creatinine continued to uptrend at 3.8. Family to visit patient and make a decision on pursuing comfort care or hospice. Hematology and chemistry in AM. Ryan Benitez, PGY-2 Internal Medicine Documentation for date of: 02/06/25 Subjective Subjective Interval history: This patient is a 64-year-old male with history of atrial fibrillation (was previously on Eliquis), CAD status post multiple stents, CVA, wheelchair-bound, CKD, Castorena's esophagus, esophageal ulcers with past upper GI bleed, and chronic osteomyelitis of the lower thoracic spine who presented to [facility] ED on 02/02 from [facility] for altered mental status. The patient was admitted to the ICU for management of shock requiring vasopressors. This patient is very well-known to [facility] and was recently discharged on 01/27 after presenting very similarly. At that time, the patient was admitted to ICU for management of shock requiring vasopressors, was found to have small and stable subdural hemorrhage which prompted neurology to recommend holding the patient's anticoagulation, and discharged on his home regimen of doxycycline and Keflex which was prescribed until per ID consultation from her previous hospitalization for the patient's chronic osteomyelitis. It is unclear how much mental capabilities the patient recovered as the patient's baseline and resolved the patient having limited vocabulary, but is able to eat on his own. The patient remained stable for a few days until around 01/31 when the noticed that the patient became much less responsive and would not eat his food. On 02/02 in the morning, nursing staff noted that the patient had hypoglycemia with a blood glucose of 55, hypotension, and a fever of 102 ?F. According to the patient's , the patient was seemingly tensed up and appeared to be silently screaming the night before. The believes that the patient is in pain and is trying to communicate, but is unable to. Additionally, the patient's notes that the patient's arms became swollen, but the swelling has since decreased with some residual swelling in the patient's right arm. Of note, the patient was made limited code during the previous hospitalization, but the patient's has revoked that and made the patient full code for this hospitalization. The patient's has signed a POLST form reflecting this decision. The patient was unable to provide any history as he was unresponsive and seemingly staring off into space with random jerking motions. ED course: Patient presented with vital significant for blood pressure of 83/60 and temperature of 86 ?F. Patient was given an amp of D50 due to blood glucose being 54 on initial evaluation. Initial labs were significant for WBC 3.0, hemoglobin 7.8, platelets 93, INR 1.5, sodium 151, potassium 5.4, chloride 123, bicarb 17.3, creatinine 2.3, AST 58, alk phos 225, and lactic acid of 2.8. Relevant labs within normal limits include procalcitonin and bilirubin of 0.4. Urinalysis was positive for leukocyte esterases, 172 WBC, and rare urine bacteria. CT head shows bilateral chronic subdural hygromas while CT chest/abdomen versus pelvis shows bibasilar pneumonia, severely atrophic left kidney, and urinary bladder contracted around a Tenorio catheter with urinary bladder wall thickening. The patient was given 1 amp of D50, 3 L of LR, and started on dexamethasone. When the patient's blood pressure send the decreased to below 65 MAP after fluid resuscitation, Levophed was started. Central line and arterial line were placed. 02/03/25: Patient was seen and assessed at bedside. No longer hypothermic after midnight. Patient had decreased urine output, about 5 cc/h. Levophed increased this morning due to low MAP. On exam, alert and hide tracking but not conversational. Open wound at thoracic spine does show signs of worsening infection. Will obtain MRI thoracic spine to rule out potential abscess or discitis. Sodium and chloride continue to be elevated, started on D5W maintenance. Continues to have high anion gap metabolic acidosis. Urine electrolytes showed elevated urine anion gap of 24, likely secondary to RTA. Started on Bicitra 30 mg 3 times daily. Follow-up renal panel. 02/04/2025: Patient was seen and examined bedside's morning. Patient overnight was having agonal breathing and was placed on high flow nasal cannula and chest x-ray was again assessed as for which showed the patient had some pulmonary edema therefore got Bumex x 1. On assessment today patient did not seem to have more peripheral edema and on auscultation there were decreased breath sounds. Given the findings and the chest x-ray findings as well we will order 1 mg of Bumex x 1. Patient was also found to have a hemoglobin 5.8 which could have been hemodilutional given that he was on D5W, but 1 PRBC was transfused and patient's hemoglobin did uptrend to 7.3, but at this time there are no active signs of bleeding. Patient is also minimally responsive even to sternal rub not withdrawing to pain at this time, but is able to open his eyes, but not tracking. Otherwise patient still on high dose Levophed at 0.13 in the AM. Blood cultures continue to be negative at this time. Kidney function continues to uptrend with minimal urine output. Sodium still uptrending patient was hyperkalemic again overnight at 5.6 and hyperkalemia cocktail was given again. Consulted nephrology, but patient unlikely to be a candidate for HD given that patient is bedbound, also will need nephrology clearance for MRI with contrast of thoracic spine. Continue doxycycline and Zosyn. Added midodrine to help wean off Levo. 02/05/2025: Patient seen and examined at bedside. Overnight patient had episodes of hypoxia overnight to 70s. Patient was intubated using etomdate 20mg and succs 100. Given patient was noted to be bradycardic post intubation, propofol was discontinued. [place] heart block note on telel strip. Albumin given in the AM with plan for Bumex 1 mg IVP x1 30 min after albumin was initiated. Plan for Goals of Care meeting with pt , given pt is not a candidate for HD. Code status changed from full code to DNR. (patient is currently intubated) Nephro recommend free water flushes for hyponatremia. Pending ET tube secretions Cultures, pending MRI t spine read. Abx modified to provide better anaerobic coverage. d.c cefepime, start Zosyn (renally dosed 3.375 q6hr with Cr Clearance 20) 02/06/2025: Patient seen and examined at bedside. Trickle feeds were discontinued at around 0200 hrs. and patient was given 25 of albumin and subsequently 1 mg of Bumex IV. Initially the plan yesterday was to start free water flushes at 150 cc/h however free water flushes were not started. Morning labs demonstrated sodium of 162 from 158 yesterday. Free water flushes started at 150 cc/h and sodium checks every 6 hours. Overnight while the trickle feeds were discontinued patient had episode of hypoglycemia to the 60s was given amp of D50 and trickle feeds were restarted. Morning labs also demonstrated hemoglobin 6.0 given 1 unit PRBC, post transfusion h and h 7.3, has hd of CAD with stents, so goal Hgb is >8, will hold in setting of pending goals of care discussion with family, Social Work attempted to contact pt , with no answer. Message was left. Holding diuresis in setting of hyperosmolar hyponatremia. pt continues to have significant anisarca. Off levofed at 0500. RR changed on vent settings from 16 to 13 2/2 alkalemia on am abg. Exam Vital Signs Temp Pulse Resp BP Pulse Ox O2 Del Method O2 Flow Rate 99.1 F 57 L 16 97/51 L 100 Room Air 30 02/06/25 08:07 02/06/25 08:07 02/06/25 08:07 02/06/25 08:07 02/06/25 08:07 02/03/25 16:01 02/06/25 06:17 FiO2 30 02/06/25 06:39 Narrative Exam GENERAL: no acute distress, intubated, not on sedation, on fentanyl HEENT: Head AT/ NC. 7.[address], taped. Mucous membranes dry. L pupil responsive to light, R pupil not visualized (eye is rolled up, can only visualize inferior aspect of the iris), NECK: Supple, in the extended position, no lymphadenopathy, no carotid bruits. CARDIOVASCULAR: RRR. Normal S1/S2, No m/r/g. significant edema of the upper and lower extremities, diffuse, ansiarca, to the elbows and feet with 4+ pitting edema, and 2 +in the forearms. unable to appreciate pedal pulses 2/2 significant edema RESPIRATORY: On Ventilator PEEP 5, Ely245, TV 450, RR 16, On assist control, D iminished breath sounds on the R lung benitez, with crackles noted in the mid to lower lung benitez GASTROINTESTINAL: Abdomen soft, non tender no palpable masses. Bowel sounds present (noted in the RUQ) MUSCULOSKELETAL:? No cyanosis or edema, no visible joint swelling. NEUROLOGICAL: Intubated, not on sedation, not opening eye to pain, L responsive to light. PSYCHIATRIC: Not assessed. SKIN: No jaundice, healing excoriations noted on the BUE, most prominent on the R shoulder. blanching macular rash noted on the abdomen, poor skin turgor, and dry and peeling skin noted on feet and hands, onychomycosis of the great toes noted. Objective Labs 02/06/25 08:25 02/06/25 18:00 Labs: Laboratory Results - last 24 hr 02/04/25 02/05/25 02/05/25 00:10 08:10 14:00 WBC RBC Hgb Hct MCV MCH MCHC RDW Std Deviation Plt Count Neut % (Auto) Lymph % (Auto) [place] % (Auto) Eos % (Auto) Baso % (Auto) Neut # (Auto) Lymph # (Auto) [place] # (Auto) Eos # (Auto) Baso # (Auto) Immature Gran # (Auto) Absolute Nucleated RBC Immature Gran % Nucleated RBC % Puncture Site Arterial Line ABG pH 7.39 ABG pCO2 35 ABG pO2 126 H D ABG HCO3 21 ABG O2 Saturation 99 H ABG Base Excess -4 L VBG pH VBG pCO2 VBG pO2 VBG O2 Sat (Gretel) VBG Base Excess FiO2 30 Sodium 158 H Potassium 3.9 Chloride 123 H* Carbon Dioxide 20.9 Anion Gap 14 BUN 41 H Creatinine 3.4 H Estim Creat Clear Calc 24.5 L eGFR 20 L BUN/Creatinine Ratio 12 Glucose 116 H Calculated Osmolality 323 H Calcium 9.3 Corrected Calcium 10.0 Phosphorus 5.8 H Magnesium Total Bilirubin AST ALT Alkaline Phosphatase Lactate Dehydrogenase 229 Albumin 3.1 L Blood Type O Positive Antibody Screen NEGATIVE Crossmatch See Detail Blood Bank Wristband ID Yes 02/06/25 04:19 WBC 3.9 D RBC 2.14 L Hgb 6.0 L* D Hct 18.6 L* MCV 87 MCH 28.0 MCHC 32.3 RDW Std Deviation 64.9 H Plt Count 52 L D Neut % (Auto) 66 Lymph % (Auto) 16 [place] % (Auto) 5 Eos % (Auto) 12 H Baso % (Auto) 0 Neut # (Auto) 2.6 Lymph # (Auto) 0.6 L Scre[place] # (Auto) 0.2 Eos # (Auto) 0.5 Baso # (Auto) 0.0 Immature Gran # (Auto) 0.03 H Absolute Nucleated RBC 0.00 Immature Gran % 1 H Nucleated RBC % 0 Puncture Site Arterial Line ABG pH 7.47 H ABG pCO2 32 ABG pO2 147 H D ABG HCO3 23 ABG O2 Saturation 100 H ABG Base Excess -1 VBG pH 7.49 VBG pCO2 31 L VBG pO2 161 H VBG O2 Sat (Gretel) 100 H VBG Base Excess 0 FiO2 30 Sodium 162 H* Potassium 3.8 Chloride 124 H* Carbon Dioxide 23.3 Anion Gap 15 BUN 47 H Creatinine 3.8 H Estim Creat Clear Calc 21.9 L eGFR 17 L BUN/Creatinine Ratio 12 Glucose 81 Calculated Osmolality 331 H Calcium 9.1 Corrected Calcium 9.7 Phosphorus 5.5 H Magnesium 2.3 Total Bilirubin 0.4 AST 40 H ALT 40 Alkaline Phosphatase 175 H D Lactate Dehydrogenase Albumin 3.2 L Blood Type Antibody Screen Crossmatch Blood Bank Wristband ID ABG Interpretation ABG results: 02/02/25 02/03/25 02/03/25 19:07 11:09 23:50 ABG pH 7.46 H ABG pCO2 26 L ABG pO2 64 L ABG HCO3 19 L ABG O2 Saturation 95 ABG Base Excess -5 L VBG pH 7.38 7.40 VBG pCO2 30 L 23 L VBG pO2 65 H 81 H VBG Base Excess -7 L -10 L 02/04/25 02/05/25 02/05/25 08:40 00:47 01:25 ABG pH 7.20 L D 7.27 L ABG pCO2 58 H D 46 D ABG pO2 124 H D 358 H D ABG HCO3 22 21 ABG O2 Saturation 98 100 H ABG Base Excess -6 L -6 L VBG pH 7.47 VBG pCO2 27 L VBG pO2 169 H D VBG Base Excess -4 L 02/05/25 02/05/25 02/06/25 04:36 08:10 04:19 ABG pH 7.45 D 7.39 7.47 H ABG pCO2 29 L D 35 32 ABG pO2 333 H D 126 H D 147 H D ABG HCO3 20 21 23 ABG O2 Saturation 100 H 99 H 100 H ABG Base Excess -3 -4 L -1 VBG pH 7.49 VBG pCO2 31 L VBG pO2 161 H VBG Base Excess 0 Quality Measures Quality Measures VTE prophylaxis and sepsis Current suspected stage: sepsis Possible source: pulmonary, genitourinary and skin/soft tissue Blood cultures ordered: yes Antibiotic ordered: Yes Assessment & Plan Assessment Current Active Medications: Generic Name Dose Route Start Last Admin Trade Name Freq PRN Reason Stop Dose Admin Citric Acid/Sodium Citrate 30 ml 02/03/25 19:09 02/05/25 20:05 Citric Acid/Sodium Citr 15 Ml Udc (Bicitra) NG 03/05/25 19:08 30 ml BID HANNAH Administration Dextrose 50 ml 02/03/25 00:23 02/06/25 05:36 Dextrose 50%-Water Inj 50 Ml Syringe IVP 03/05/25 00:22 50 ml Q30MIN PRN Administration HYPOGLYCEMIA Heparin Sodium (Porcine) 5,000 unit 02/05/25 14:00 02/06/25 05:35 Heparin Sod Inj 5000 Unit/Ml Vial SC 02/19/25 13:59 5,000 unit Q8HR HANNAH Administration Norepinephrine Bitartrate 16 mg in 250 mls @ 4.176 mls/hr 02/02/25 17:11 02/06/25 05:00 Levophed In Ns 16mg/250ml IV 03/04/25 17:10 0 mcg/kg/min .Q24H PRN 0 mls/hr PER protocol Titration Protocol 0.05 MCG/KG/MIN Dexmedetomidine/Sodium Chloride 400 mcg in 100 mls @ 4.445 mls/hr 02/03/25 10:05 Precedex Ivpb IV 03/05/25 10:04 .[id number] PRN Per PROTOCOL Protocol 0.2 MCG/KG/HR Dextrose 1,000 mls @ 100 mls/hr 02/03/25 10:15 02/03/25 23:45 D5w IV 03/05/25 10:14 0 mls/hr On Hold: 02/03/25 23:54 .Q10H HANNAH Infusion Doxycycline Hyclate 100 mg/ 100 mls @ 100 mls/hr 02/04/25 21:00 02/05/25 20:06 Sodium Chloride IV 02/11/25 20:59 100 mls/hr BID HANNAH Administration Propofol 1,000 mg in 100 mls @ 2.688 mls/hr 02/05/25 00:41 02/05/25 06:00 Diprivan Ivpb IV 03/07/25 00:40 0 mcg/kg/min .Q24H PRN 0 mls/hr PER PROTOCOL Titration Protocol 5 MCG/KG/MIN Fentanyl Citrate 2,500 mcg in 250 mls @ 2.5 mls/hr 02/05/25 01:05 02/06/25 06:00 Sublimaze Inj 2,500 Mcg/250 Ml Bag IV 02/10/25 01:04 12.5 mcg/hr .Q24H PRN 1.25 mls/hr PER PROTOCOL Titration Protocol 25 MCG/HR Piperacillin/Tazobactam/Dextrose 3.375 gm in 50 mls @ 12.5 mls/hr 02/05/25 22:00 02/06/25 05:36 Zosyn IV 02/12/25 11:01 12.5 mls/hr Q8HR HANNAH Administration Protocol Midodrine 10 mg 02/04/25 14:00 02/06/25 05:35 Midodrine 5 Mg Tablet PO 03/06/25 13:59 10 mg TID HANNAH Administration Ondansetron HCl 4 mg 02/02/25 11:01 Ondansetron Inj 2 Mg/Ml Inj 2 Ml IVP 03/04/25 11:00 Q6HR PRN NAUSEA OR VOMITING Pantoprazole Sodium 40 mg 02/06/25 09:00 Pantoprazole Inj 40 Mg Vial IVP 03/08/25 08:59 QDAY HANNAH Sevelamer Carbonate 800 mg 02/05/25 14:00 02/06/25 05:36 Sevelamer Carbonate 800 Mg Tablet NG 03/07/25 13:59 800 mg TID HANNAH Administration Plan Assessment: Patient is a 64-year-old male with history of atrial fibrillation (was previously on Eliquis), CAD status post multiple stents, CVA, wheelchair-bound, CKD, Castorena's esophagus, esophageal ulcers with past upper GI bleed, and chronic osteomyelitis of the lower thoracic spine who presented to [facility] ED on 02/02 from [facility] for altered mental status. The patient was admitted to the ICU for management of shock requiring vasopressors. Code status changed to DNR, pt is currently intubated. 02/06 off pressers. NEURO #Acute encephalopathy DDx: Metabolic derangement, distributive shock Diagnostic workup: - CT head with stable chronic subdural hygromas unlikely contributing to patient current condition. EEG with no epileptiform discharges. - No additional diagnostic workup indicated today - WBC within normal limits, CTM Treatment: -On IV Doxy (02/04-), Cefepime (02/02?02/05), Zosyn 3.375 gm q6hr (02/05-) Treatment follow-up: - Daily neuroassessment #Bilateral subdural hygromas, chronic Diagnostic workup: CT head 02/02 shows bilateral chronic subdural hygromas with mild mass effect upon the right lateral ventricle system with shift of frontal horns to the left by 3 mm Treatment: - No active management at this time Treatment follow-up: - Follow-up outpatient CARDIO #Hypothermia Likely 2/2 distributive shock and insensible losses. Treatment: - Bear hugger Treatment follow-up: - CTM temperature. #Shock Likely distributive, low suspicion for cardiogenic, likely 2/2 uti vs aspiration pna Diagnostic workup - 02/06 off levofed. BP soft with systolics 90s/40s. - UA showed turbid urine with positive leukocyte esterase, nitrite negative, WBC 172, yeast, rare bacteria. - NICOM at bedside showed increased cardiac output and decreased systemic vascular resistance, unlikely cardiogenic shock Treatment: - Vancomycin (02/02-), Doxycycline (02/02-) and Cefepime (02/02?02/05), Zosyn 3.375 q6hr (02/05-) - Added midodrine 10mg TID Treatment follow-up: -Follow-up renin, aldosterone, and 17-hydroxyprogesterone #CHF exacerbation #HFpEF (55-60% EF 12/2024) patient continues to have significant anisarca in bilateral upper and lower extremities, patient recieved 3x 1mg IV bumex and albumin yesterday, with 1.3 UOP for the past 24hrs, See #hypernatremia below, plan to hold further diuresis in setting of worsening hypernatremia Treatment plan: - holding diuresis with IV bumex in setting of hypernatremia Treatment follow-up: - Follow-up on urine output - repeat renal function panel #Lilliam Type I Nas Tele strip 02/05 @0100 with increasing TX interval and dropped beat Diagnostic Workup: - EKG Treatment - Continue to monitor tele monitoring #Atrial fibrillation Diagnostic workup: - Patient has a history of atrial fibrillation and previously took Eliquis, but this was put on hold from the patient's previous hospital admission until the patient could be re-evaluated outpatient Treatment: - Holding elequis - 02/05 start heparin 5000 sq TID-->02/06 given decrease in platelets, decrease frequency to BID Treatment follow-up: - Follow-up cardiology outpatient #Hx CAD with stents Treatment - on heparin BID - hold home elequis, - Hgb Goal >8 #Elevated troponins (resolved) #NSTEMI type II (resolved) PULM #Acute hypoxic Respirtory failure Diagnostic work up - ABGs Treatment - Intubation on PEEP 5, FIO2 30, fio2 450 and RR 16-->13 #Respiratory Alkalosis AM abg with mildly elevated pH, 7.47 Diagnostic workup - ABGs Treatment - Decrease respiratory rate from 16 to 13 #Aspiration Pneumonia vs Pneumonitis Ddx: aspiration post intubation, trickle feeds were started 02/04 given persistent hypoglycemia Diagnostic Work up - 02/05 CXR with R lung infiltrates and diffuse R lung PNA, compared xray to pre intubation which showed clear R Lung benitez with significant L lung pna. and vascular congestion [ ] ET tube secretions culture pending Treatment - Zosyn (renally dosed) #Pulmonary Edema DDx: CHF exacerbation 02/03 CXR showed worsening vascular congestion with decreased breathsounds on physical exam Treatment: - Holding IV diuresis in setting of #hypernatremia Treatment follow up: - CTM vent settings. #Bilateral pleural effusions (L>R) with compressive atelectasis DDx: Healthcare facility associated pneumonia vs aspiration Diagnostic workup: - As noted on CT chest/abdomen/pelvis taken 02/02 - Patient breathing comfortably on room air without increased work of breathing on admission Treatment: - holding diuresis in setting of hypernatremia GI #History of Castorena's esophagus #History of esophageal ulcers with upper GI bleed- no active bleeding stools have not demonstrated any lilibeth blood per rectum, no melenic stools noted. Abdomen is nontender on exam. Diagnostic workup: - EGD and colonoscopy done in 01/2025 without active signs of bleeding, some internal hemrrhoids noted Treatment: - Protonix 40 mg daily, In setting of intubation for GI ppx. Treatment follow-up: - Continue to monitor CBC for possible bleed # Transaminitis (downtrending ) Ddx Transaminitis likely 2/2 ischemic inury to liver in setting of suspected distributive shock, possible that uptrending AST and ALT are 2/2 medication induced (pt was on cefepime, now on zosyn) Diagnostic workup: - AST 58 -> 54->71->40 - ALT 66->71->40 - Alk phos 225 -> 223-->261->175 - Abdominal ultrasound showed absent gallbladder with normal common bile duct however liver noted to be lobular in contour, suspect primary hepatocellular disease. -Prolonged PTT, INR, PT Treatment: -No active treatment at this time Treatment follow-up: -Follow-up hepatitis panel and daily CMP -consider medication induced if lfts are uptrending # ?Primary hepatocellular disease Diagnostic Workup: - Abdominal US with lobular iver contour, suspect primary hepatocellular dz. - Hep panel non reactive Treatment - no active treatment at this time Treatment follow up: - daily cmp #Nutrition #Persistent Hypoglycemia overnight trickle feeds were stoppped temporarily, for a couple of hours around 0200 and 0400, pt was noted to have hypoglycemia during that time with bedside glucose at 60s, given amp of d50. Diagnostic Workup - Bedside glucose checks q6hr Treatment - D50 amp prn for hypoglycemia, patient is npo with ng tube in place. NEPHRO #ARIA on CKD IV Diagnostic workup - Daily CMP, follow up PM renal panel - Cr 2.3 (on admission) -> 3.8 Treatment - nephrology consulted, patient is not a candidate for HD #CKD stage IV (GFR 20) Diagnostic workup - Creatinine on admission 2.3, noted to be downtrending compared to previous creatinine values - Daily CMP Treatment: - Avoid nephrotoxic drugs - Renally dose medications #Lactic acidosis (downtrending) likely 2/2 hypoperfusion in setting of distributive shock, patient was previously on pressors, 02/06 off pressers in the AM. Diagnostic workup: - Lactic acid 2.8 -> 1.5 --> 3.8 -> 3.3-> 3.1 - off pressors and maintaining MAP > 65. Treatment: - Manage underlying shock with IVF - Zosyn and Doxycycline #Hyperosmolar hypernatremia - worsening 02/05 free water flushes were not started. Orderes were corrected and patient was started on 150cc/hr at 0500 hrs on 02/06 Diagnostic work up Sodium 156-> 158->162 Serum osm 331 Free water deficit calculated at 1.6L (goal Na @152) [ ] q6hr Sodium checks Treatment - Free water flushes 150 cc/hr (per nephro recomendations), consider increasing to 165cc/hr #Hypochloremia - stable, persists Diagnostic workup - follow up am cmp Treatment - no intervention indicated at this time #Hyperphosphatemia (improvng) likely in setting of CKD IV (see above) Diagnostic work up: - Phos: 6.4-> 5.5 - Daily phos labs Treatment - Sevalamer 800 NG TID #Normal anion gap metabolic acidosis- resolvng #RTA Diagnostic workup: - Albumin corrected anion gap 14.7, suggesting non-anion gap metabolic acidosis on admission -Repeat renal panel 02/03 showed bicarb 14.5, anion gap 20, lactic 3.3 -Urine electrolytes showed high urine anion gap, suggestive of RTA -Repeat renal panel with Anion gap 14, bicarb 20, Anion gap 14, Treatment: - Bicitra 30 mg 3 times daily #Bilateral renal cysts #Atrophic left kidney Diagnostic workup - As noted on CT chest/abdomen/pelvis on 02/02 Treatment: -No active treatment at this time Treatment follow-up: - Follow up outpatient URO #Indwelling tenorio catheter- chronic Diagnostic workup: - UA with turbid urne c/f UTI - Urine Cultrues no growth Treatment: -Tenorio in place -IV antibiotics zosyn Treatment follow-up: - Will reassess need for Tenorio catheter and possibly exchange catheter HEME #Pancytopenia Likely secondary to shock Diagnostic workup: -On admission, WBC 3.0, RBC 2.71, hemoglobin 7.8, and platelet 93 -02/05: WBC 8.1 from 8.5, hemoglobin 7.9 (stable). Low suspicion for active GI bleed at this time. No melena or hematemesis. Treatment: -No active treatment at this time Treatment follow-up: - Will consider further workup for myelodysplastic syndromes - Transfuse if hemoglobin less than 8 (patient has hx of CAD with stents) #Acute on chronic normocytic anemia given patient with hx of cad and stents, ideal goal hgb is > 8. Diagnostic workup: - CBC with hgb 6.0->7.3 Treatment - Gave 1 unit PRBC - consider giving additional unit of blood because hgb goal 8. #Acute on Chronic Thrombocytopenia patient was given heparin tid yesterday for dvt ppx, ENDO No active problems ID #History of chronic osteomyelitis T12-L2 #History of Enterococcus faecalis in urine Diagnostic workup: - Patient does have a history of Enterococcus faecalis in urine and chronic osteomyelitis with previous wound cultures growing pansensitive MSSA - MRI lumbar spine 12/15/2024 notes osteomyelitis in T12-L2, patient had previously pulled out PICC line during past hospitalizations, so was recently discharged with oral antibiotics (keflex and doxy, with end date 03/04) - MRI t spine 02/05/2025 notes no acute thoracic fracture, Mild diffuse thoracic disc narrowing, No abnormal enhancing osseous epidural or thoracic cord lesions noted Treatment: - IV antibiotics as above SKIN #Stage IV ulcer, lower back, 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 discharged on doxy and keflex, patient was unable to tolerate PICC line as per prior documentation, 03/04 end date for treatment with doxycycline Diagnostic workup - Lower back ulcer (on admission estimate size 5 cm x 3 cm x 0.5 cm) with exposure to subcutaneous tissue, slight bloody discharge without expression of pus noted on admission - Patient does have a history of a chronic stage IV ulcer in his mid back, possible source of chronic osteomyelitis during previous admissions - MRI T spine 02/05/2025 notes no acute thoracic fracture, Mild diffuse thoracic disc narrowing, No abnormal enhancing osseous epidural or thoracic cord lesions noted (exam limited by patient motion) Treatment: - Wound care referral, appreciate recs. - Keep patient on his sides - Antibiotics as above, continue doxy Treatment follow-up: - no follow up indicated at this time. #Multiple scattered scabs Diagnostic workup: -On exam, patient has multiple diffuse and scattered scabs noted throughout the body, most numerous and prominent on bilateral upper extremities and chest - Likely secondary to scratching Treatment: - No active treatment at this time as patient is not scratching anymore #Blanching Macular Rash on Abdomen Diagnostic work up - On exam, noted to have diffuse blanching macular rash. - possibly 2/2 mild allergic reaction Treatment - no active treatment at this time, patient is currently intubated, so airway is protected Treatment Follow up - consider diphenhydramine if rash worsens ICU Health maintenance: Mechanical ventilation: Yes, Intubated Sedation: Fent, propophol was discontinued overnight for bradycardia Diet: NPO, NG tube, with trickle feeds ongoing DVT prophylaxis: Heparin 5000 bid SQ GI prophylaxis: Protonix 40 QD given patient is currently intubated Tenorio: Yes Lines: PIV, right IJ central line, left radial arterial line Antibiotics: Doxycycline, Zosyn (renally dosed) CODE STATUS: Full Case disclosed with my senior resident Dr. Benitez and my Attending Dr. Clayton Bright MD PGY1
[2025-02-06] MEDS: DOXYCYCLINE INJ 100 MG in SODIUM CHLORIDE 0.9% (POP) 100 ML IV ×2 (08:45→20:56)
[2025-02-06] MEDS: CITRIC ACID/SODIUM CITR 15 ML UDC (BICITRA) 30 ML NG ×2 (08:46→20:56)
[2025-02-06] MEDS: POTASSIUM CHLORIDE 10% 20 MEQ/15 ML UDC NG (08:46)
[2025-02-06 08:55] LABS: Basophils # (Auto) 0.0 Thou/mm3 (0.0-0.2); Basophils % (Auto) 0 % (0-2.5); Eosinophils # (Auto) 0.5 Thou/mm3 (0.0-0.5); Eosinophils % (Auto) 15 % (0-10); Hematocrit 22.3 % (41.0-53.0); Immature Granulocytes Auto 0.03 Thou/mm3 (0.00-0.00); Lymphocytes # (Auto) 0.5 Thou/mm3 (1.0-4.8); Lymphocytes % (Auto) 15 % (10-50); Mean Corpuscular HGB Conc 32.7 g/dl (31.0-37.0); Mean Corpuscular Hemoglobin 28.5 pg (25.0-35.0); Mean Corpuscular Volume 87 fL (80-100); Monocytes # (Auto) 0.2 Thou/mm3 (0.0-0.8); Monocytes % (Auto) 7 % (0-12); Neutrophils # (Auto) 2.3 Thou/mm3 (1.8-7.7); Neutrophils % (Auto) 63 % (37-80); Nucleated Red Blood Cell # 0.02 Thou/mm3 (0.00-0.00); Nucleated Red Blood Cell % 1 /100 WBC (0); RDW Standard Deviation 61.2 fL (35.1-43.9); Red Blood Count 2.56 Miln/mm3 (4.50-5.90); White Blood Count 3.6 Thou/mm3 (3.8-10.6)
[2025-02-06 08:56] LABS: Hemoglobin 7.3 g/dL (13.5-16.0); Platelet Count 52 Thou/mm3 (140-440)
--- NOTE | 2025-02-06 09:09 | ESPR_ITS ---
Documentation for date of: 02/06/25 Subjective Subjective Interval history: Reason for consult: ARIA on CKD History of present illness: Agustin Schrader 64M with history of atrial fibrillation (was previously on Eliquis), CAD status post multiple stents, CVA, wheelchair-bound, CKD, Castorena's esophagus, esophageal ulcers with past upper GI bleed, and chronic osteomyelitis of the lower thoracic spine who presented to [facility] ED on 02/02 from [facility] for altered mental status. The patient was admitted to the ICU for management of shock requiring vasopressors. This patient is very well-known to [facility] and was recently discharged on 01/27 after presenting very similarly. At that time, the patient was admitted to ICU for management of shock requiring vasopressors, was found to have small and stable subdural hemorrhage which prompted neurology to recommend holding the patient's anticoagulation, and discharged on his home regimen of doxycycline and Keflex which was prescribed until per ID consultation from her previous hospitalization for the patient's chronic osteomyelitis. It is unclear how much mental capabilities the patient recovered as the patient's baseline and resolved the patient having limited vocabulary, but is able to eat on his own. The patient remained stable for a few days until around 01/31 when the noticed that the patient became much less responsive and would not eat his food. On 02/02 in the morning, nursing staff noted that the patient had hypoglycemia with a blood glucose of 55, hypotension, and a fever of 102 ?F. According to the patient's , the patient was seemingly tensed up and appeared to be silently screaming the night before. The believes that the patient is in pain and is trying to communicate, but is unable to. Additionally, the patient's notes that the patient's arms became swollen, but the swelling has since decreased with some residual swelling in the patient's right arm. Of note, the patient was made limited code during the previous hospitalization, but the patient's has revoked that and made the patient full code for this hospitalization. The patient's has signed a POLST form reflecting this decision. The patient was unable to provide any history as he was unresponsive and seemingly staring off into space with random jerking motions. Nephrology consulted for ARIA on CKD IV. 02/04/2025: Patient seen and examined at bedside in ICU. Patient is not arousable to verbal stimulation, grimacing and groaning with sternal rub, sleepy. Patient on high flow 40L and levophed. Nephrology consulted for ARIA on CKD 4, cleared from nephrology to obtain low ionic contrast MRI spine. Patient is clinically hypervolemic and fluid overloaded, recommend against further IVF. Given clinical picture, patient is not a candidate for hemodialysis as he has significant comorbidities such as hx of osteomyelitis and frequent episodes of sepsis requiring hospitalization. 02/05/25: Patient seen and examined at bedside in ICU. Patient was intubated overnight due to acute hypoxic respiratory failure. Continues to be on Levophed, now also on propofol. Had good urine output s/p IV Bumex 1 mg x1 overnight. Recommend to schedule IV Bumex 2 mg daily with IV albumin 25g BID. Sodium increased to 158, recommend 100 mL/hr free water flushes with tube feeds (started overnight). Creatinine worsening however given poor prognosis, patient is not a candidate for HD. As noted yesterday, patient is cleared for low ionic contrast MRI spine. 02/06/25: Patient seen and examined at bedside in ICU. Intubated and sedated on propofol. Levophed increased overnight. Maintaining good urine output s/p IV Bumex 1 mg x5 yesterday. Sodium increased to 162. Free water flushes not started until 5AM today. Based on estimated free water deficit of 3.9L, recommend increasing to 165 mL free water flushes with feeds. Creatinine 3.8, continues to increase. GFR 17. Continue IV albumin and IV Bumex 2mg daily. MRI completed yesterday. ICU team spoke to family yesterday, code status changed to DNR. Will speak to extended family today about transitioning to comfort care. Exam Vital Signs Temp Pulse Resp BP Pulse Ox O2 Del Method O2 Flow Rate 99.1 F 57 L 16 97/51 L 100 Room Air 30 02/06/25 08:07 02/06/25 08:07 02/06/25 08:07 02/06/25 08:07 02/06/25 08:07 02/03/25 16:01 02/06/25 06:17 FiO2 30 02/06/25 06:39 Narrative Exam Physical Exam General: Intubated and sedated. HEENT: Normocephalic, atraumatic, mucous membranes dry. Right IJ central line. NG tube placed. Heart: Irregular rate and rhythm, normal S1 and S2, no murmurs. Lungs: Clear to auscultation with no wheezing or crackles. Abdomen: Soft, nondistended, positive bowel sounds. Neurologic: Unable to assess due to sedation. Extremities: Non pitting edema of bilateral upper and lower extremities. Skin: No rash or ecchymoses. Dry flaky skin with scattered scabs, mostly around upper extremities. Objective Labs 02/06/25 08:25 02/07/25 00:22 Labs: Laboratory Results - last 24 hr 02/04/25 02/05/25 02/06/25 00:10 14:00 04:19 WBC 3.9 D RBC 2.14 L Hgb 6.0 L* D Hct 18.6 L* MCV 87 MCH 28.0 MCHC 32.3 RDW Std Deviation 64.9 H Plt Count 52 L D Neut % (Auto) 66 Lymph % (Auto) 16 Jack % (Auto) 5 Eos % (Auto) 12 H Baso % (Auto) 0 Neut # (Auto) 2.6 Lymph # (Auto) 0.6 L Jack # (Auto) 0.2 Eos # (Auto) 0.5 Baso # (Auto) 0.0 Immature Gran # (Auto) 0.03 H Absolute Nucleated RBC 0.00 Immature Gran % 1 H Nucleated RBC % 0 Puncture Site Arterial Line ABG pH 7.47 H ABG pCO2 32 ABG pO2 147 H D ABG HCO3 23 ABG O2 Saturation 100 H ABG Base Excess -1 VBG pH 7.49 VBG pCO2 31 L VBG pO2 161 H VBG O2 Sat (Gretel) 100 H VBG Base Excess 0 FiO2 30 Sodium 158 H 162 H* Potassium 3.9 3.8 Chloride 123 H* 124 H* Carbon Dioxide 20.9 23.3 Anion Gap 14 15 BUN 41 H 47 H Creatinine 3.4 H 3.8 H Estim Creat Clear Calc 24.5 L 21.9 L eGFR 20 L 17 L BUN/Creatinine Ratio 12 12 Glucose 116 H 81 Calculated Osmolality 323 H 331 H Calcium 9.3 9.1 Corrected Calcium 10.0 9.7 Phosphorus 5.8 H 5.5 H Magnesium 2.3 Total Bilirubin 0.4 AST 40 H ALT 40 Alkaline Phosphatase 175 H D Lactate Dehydrogenase 229 Albumin 3.1 L 3.2 L Blood Type O Positive Antibody Screen NEGATIVE Crossmatch See Detail Blood Bank Wristband ID Yes 02/06/25 08:25 WBC 3.6 L RBC 2.56 L Hgb 7.3 L D Hct 22.3 L MCV 87 MCH 28.5 MCHC 32.7 RDW Std Deviation 61.2 H Plt Count 52 L Neut % (Auto) 63 Lymph % (Auto) 15 Jack % (Auto) 7 Eos % (Auto) 15 H Baso % (Auto) 0 Neut # (Auto) 2.3 Lymph # (Auto) 0.5 L Jack # (Auto) 0.2 Eos # (Auto) 0.5 Baso # (Auto) 0.0 Immature Gran # (Auto) 0.03 H Absolute Nucleated RBC 0.02 H Immature Gran % 1 H Nucleated RBC % 1 H Puncture Site ABG pH ABG pCO2 ABG pO2 ABG HCO3 ABG O2 Saturation ABG Base Excess VBG pH VBG pCO2 VBG pO2 VBG O2 Sat (Gretel) VBG Base Excess FiO2 Sodium Potassium Chloride Carbon Dioxide Anion Gap BUN Creatinine Estim Creat Clear Calc eGFR BUN/Creatinine Ratio Glucose Calculated Osmolality Calcium Corrected Calcium Phosphorus Magnesium Total Bilirubin AST ALT Alkaline Phosphatase Lactate Dehydrogenase Albumin Blood Type Antibody Screen Crossmatch Blood Bank Wristband ID ABG Interpretation ABG results: 02/02/25 02/03/25 02/03/25 19:07 11:09 23:50 ABG pH 7.46 H ABG pCO2 26 L ABG pO2 64 L ABG HCO3 19 L ABG O2 Saturation 95 ABG Base Excess -5 L VBG pH 7.38 7.40 VBG pCO2 30 L 23 L VBG pO2 65 H 81 H VBG Base Excess -7 L -10 L 02/04/25 02/05/25 02/05/25 08:40 00:47 01:25 ABG pH 7.20 L D 7.27 L ABG pCO2 58 H D 46 D ABG pO2 124 H D 358 H D ABG HCO3 22 21 ABG O2 Saturation 98 100 H ABG Base Excess -6 L -6 L VBG pH 7.47 VBG pCO2 27 L VBG pO2 169 H D VBG Base Excess -4 L 02/05/25 02/05/25 02/06/25 04:36 08:10 04:19 ABG pH 7.45 D 7.39 7.47 H ABG pCO2 29 L D 35 32 ABG pO2 333 H D 126 H D 147 H D ABG HCO3 20 21 23 ABG O2 Saturation 100 H 99 H 100 H ABG Base Excess -3 -4 L -1 VBG pH 7.49 VBG pCO2 31 L VBG pO2 161 H VBG Base Excess 0 Quality Measures Quality Measures VTE prophylaxis and sepsis Current suspected stage: sepsis Possible source: pulmonary, genitourinary and skin/soft tissue Blood cultures ordered: yes Antibiotic ordered: Yes Assessment & Plan Assessment Current Active Medications: Generic Name Dose Route Start Last Admin Trade Name Freq PRN Reason Stop Dose Admin Citric Acid/Sodium Citrate 30 ml 02/03/25 19:09 02/06/25 08:46 Citric Acid/Sodium Citr 15 Ml Udc (Bicitra) NG 03/05/25 19:08 30 ml BID HANNAH Administration Dextrose 50 ml 02/03/25 00:23 02/06/25 05:36 Dextrose 50%-Water Inj 50 Ml Syringe IVP 03/05/25 00:22 50 ml Q30MIN PRN Administration HYPOGLYCEMIA Heparin Sodium (Porcine) 5,000 unit 02/05/25 14:00 02/06/25 05:35 Heparin Sod Inj 5000 Unit/Ml Vial SC 02/19/25 13:59 5,000 unit Q8HR HANNAH Administration Norepinephrine Bitartrate 16 mg in 250 mls @ 4.176 mls/hr 02/02/25 17:11 02/06/25 05:00 Levophed In Ns 16mg/250ml IV 03/04/25 17:10 0 mcg/kg/min .Q24H PRN 0 mls/hr PER protocol Titration Protocol 0.05 MCG/KG/MIN Dexmedetomidine/Sodium Chloride 400 mcg in 100 mls @ 4.445 mls/hr 02/03/25 10:05 Precedex Ivpb IV 03/05/25 10:04 .[id number] PRN Per PROTOCOL Protocol 0.2 MCG/KG/HR Dextrose 1,000 mls @ 100 mls/hr 02/03/25 10:15 02/03/25 23:45 D5w IV 03/05/25 10:14 0 mls/hr On Hold: 02/03/25 23:54 .Q10H HANNAH Infusion Doxycycline Hyclate 100 mg/ 100 mls @ 100 mls/hr 02/04/25 21:00 02/06/25 08:45 Sodium Chloride IV 02/11/25 20:59 100 mls/hr BID HANNAH Administration Propofol 1,000 mg in 100 mls @ 2.688 mls/hr 02/05/25 00:41 02/05/25 06:00 Diprivan Ivpb IV 03/07/25 00:40 0 mcg/kg/min .Q24H PRN 0 mls/hr PER PROTOCOL Titration Protocol 5 MCG/KG/MIN Fentanyl Citrate 2,500 mcg in 250 mls @ 2.5 mls/hr 02/05/25 01:05 02/06/25 06:00 Sublimaze Inj 2,500 Mcg/250 Ml Bag IV 02/10/25 01:04 12.5 mcg/hr .Q24H PRN 1.25 mls/hr PER PROTOCOL Titration Protocol 25 MCG/HR Piperacillin/Tazobactam/Dextrose 3.375 gm in 50 mls @ 12.5 mls/hr 02/05/25 22:00 02/06/25 05:36 Zosyn IV 02/12/25 11:01 12.5 mls/hr Q8HR HANNAH Administration Protocol Midodrine 10 mg 02/04/25 14:00 02/06/25 05:35 Midodrine 5 Mg Tablet PO 03/06/25 13:59 10 mg TID HANNAH Administration Ondansetron HCl 4 mg 02/02/25 11:01 Ondansetron Inj 2 Mg/Ml Inj 2 Ml IVP 03/04/25 11:00 Q6HR PRN NAUSEA OR VOMITING Pantoprazole Sodium 40 mg 02/06/25 09:00 02/06/25 08:46 Pantoprazole Inj 40 Mg Vial IVP 03/08/25 08:59 40 mg QDAY HANNAH Administration Sevelamer Carbonate 800 mg 02/05/25 14:00 02/06/25 05:36 Sevelamer Carbonate 800 Mg Tablet NG 03/07/25 13:59 800 mg TID HANNAH Administration Plan Patient is a 64 year old male with past medical history of atrial fibrillation (was previously on Eliquis), CAD status post multiple stents, CVA, wheelchair- bound, CKD, Castorena's esophagus, esophageal ulcers with past upper GI bleed, and chronic osteomyelitis of the lower thoracic spine who presented to [facility] ED on 02/02 from [facility] for altered mental status. The patient was admitted to the ICU for management of shock requiring vasopressors. #ARIA on CKD IV (worsening) #Bilateral renal cysts #Atrophic left kidney - Known history of CKD stage IV with baseline creatinine 1.7-2.2 on previous hospitalization for similar presentation. reports poor UOP on 02/02. - Creatinine 2.3 --> 2.8 (02/04) --> 3.1 (02/04) -> 3.3 (02/05) - CTAP showed bilateral renal cysts, severe atrophy of left kidney - S/p MRI spine with low ionic contrast 02/05 - Likely ATN 2/2 frequent insults i.e. sepsis to pre-existing CKD stage IV Plan: - Continue IV albumin 25 g TID with IV Bumex 2 mg daily, uptitrate as needed based on daily volume status - Given clinical picture, patient is not a candidate for hemodialysis given bed bound status as he will be unable to attend sessions and overall poor prognosis with large chronic wound and frequent episodes of sepsis requiring hospitalization. - Strict I/Os, follow UOP closely, avoid nephrotoxic agents and renally dose - Per primary team, code status has been changed to DNR 02/05 after discussion with patient . Planning another [facility] discussion today with extended family to transition to comfort care #Hypernatremia - Sodium on admission 151 ->158 -> 162 - Likely secondary to dehydration and decreased oral intake prior to admission. Per chart review, appeared hypovolemic on admission. - Patient now hypervolemic s/p IVF and D5W with decreased urine output for the past 2 days. - Free water deficit 3.9 - Likely secondary to dehydration from NPO status Plan: - Increase to 165 mL free water flushes with tube feeds with goal Na 152 - Monitor sodium q6hr #Shock #Hypothermia #Acute encephalopathy #Bilateral subdural hygromas, chronic #Atrial fibrillation #Elevated troponins (resolved) #NSTEMI type II (resolved) #Bilateral pleural effusions (L>R) with compressive atelectasis #History of Castorena's esophagus #History of esophageal ulcers with upper GI bleed # Transaminitis (improving) # ?Primary hepatocellular disease #Lactic acidosis #Indwelling tenorio catheter #Pancytopenia (improving) #Electrolyte abnormalities #Hyperkalemia #Hyperchloremia #Normal anion gap metabolic acidosis #HAGMA #RTA #History of Enterococcus faecalis in urine #History of chronic osteomyelitis T12-L2 Plan: - Management per ICU team Thank you for the consultation and allowing participation in patient's care. Patient plan of care was discussed with the attending physician, Dr. Summers. Lashanda oTrres DO, PGY-1 Attending Provider Attestation/Addendum Patient currently seen and examined with resident physician Dr. Torres. Note reviewed, agree with findings and recommendations. Patient currently seen in ICU. Has been in the hospital several times. Patient practically bedbound with decubitus ulcer In the thoracic spine area. Planning to do MRI with contrast. Due to his advanced kidney problem-recommend low ionic contrast. ARIA worsening- ATN. Not a candidate for dialysis. Bed bound, hemodynamic instability. Goals of care to be d/w . So far patient was made DNR. Currently on ventilator. Care discussed with ICU team.
[2025-02-06 09:23] LABS: Slide Review Platelets confirmed
[2025-02-06 09:26] LABS: Slide Review Platelets confirmed
--- NOTE | 2025-02-06 10:21 | PC.SS ---
GROCERY SUPERVISOR attempted phone contact with patient's spouse, Sheila Vogel ; to obtain update on family's decision to initiate comfort care on behalf of the patient. No response. GROCERY SUPERVISOR left message requesting return call. GROCERY SUPERVISOR updated ICU residential team.
--- NOTE | 2025-02-06 11:16 | PC.SS ---
DAIRY HUSBANDRY WORKER received call from patient's spouse confirming arrival to patient's bedside to discuss decision on comfort care measures. DAIRY HUSBANDRY WORKER updated ICU clinical team.
--- NOTE | 2025-02-06 12:53 | ESPR_ITS ---
Documentation for date of: 02/06/25 Subjective Subjective Interval history: This is a 64-year-old male well-known to the service who was admitted on 1128 for a longterm. He was admitted for hypotension and sepsis which progressed to septic shock.. Overnight he decompensated and was found to be aspirating. His mentation continued to decline. He was intubated for airway protection. He was started on prop and Fent. He was noted to have some pauses on the monitor as well as some tacky bradycardia arrhythmias. His propofol was stopped. His chest x-ray is noted to have a significant worsening of right sided infiltrate. Patient was seen with nephrology today. The patient is not a good candidate for dialysis. Remains on vasopressor support. 02/06- no acute overnight events, now off vasopressors, good UOP, afebrile, patient remains profoundly encephalopathic Critical Care Note Critical care time (min.): 40 Exam Vital Signs Temp Pulse Resp BP Pulse Ox O2 Del Method O2 Flow Rate 99.3 F 69 16 92/43 L 100 Room Air 30 02/06/25 12:00 02/06/25 12:30 02/06/25 08:07 02/06/25 12:30 02/06/25 12:30 02/03/25 16:01 02/06/25 06:17 FiO2 30 02/06/25 12:00 Narrative Exam General-no acute distress, intubated, on minimal sedation with fentanyl 12.5, normal body habitus, anasarca HEENT-normocephalic, atraumatic, sclera icteric, oral mucosa is very dry, ET tube OG tube in place Chest-diminished breath sounds bilaterally, few scattered crackles at bases, no active wheezing noted, heart rate regular and rhythmic, no bruits or murmurs, no increased work of breathing Abdomen-soft, nontender, bowel sounds present, no rebound or guarding Extremities-edema throughout, pulses palpable, no clubbing, no mottling Drips Fentanyl 12.5 Tube feeds with free water flushes at 100 cc an hour Physical Exam Completion Physical Exam Complete?: Yes Objective - [employer] Labs 02/06/25 08:25 02/06/25 04:19 Labs: Laboratory Results - last 24 hr 02/04/25 02/05/25 02/06/25 00:10 14:00 04:19 WBC 3.9 D RBC 2.14 L Hgb 6.0 L* D Hct 18.6 L* MCV 87 MCH 28.0 MCHC 32.3 RDW Std Deviation 64.9 H Plt Count 52 L D Neut % (Auto) 66 Lymph % (Auto) 16 [place] % (Auto) 5 Eos % (Auto) 12 H Baso % (Auto) 0 Neut # (Auto) 2.6 Lymph # (Auto) 0.6 L [place] # (Auto) 0.2 Eos # (Auto) 0.5 Baso # (Auto) 0.0 Immature Gran # (Auto) 0.03 H Absolute Nucleated RBC 0.00 Immature Gran % 1 H Nucleated RBC % 0 Puncture Site Arterial Line ABG pH 7.47 H ABG pCO2 32 ABG pO2 147 H D ABG HCO3 23 ABG O2 Saturation 100 H ABG Base Excess -1 VBG pH 7.49 VBG pCO2 31 L VBG pO2 161 H VBG O2 Sat (Gretel) 100 H VBG Base Excess 0 FiO2 30 Sodium 158 H 162 H* Potassium 3.9 3.8 Chloride 123 H* 124 H* Carbon Dioxide 20.9 23.3 Anion Gap 14 15 BUN 41 H 47 H Creatinine 3.4 H 3.8 H Estim Creat Clear Calc 24.5 L 21.9 L eGFR 20 L 17 L BUN/Creatinine Ratio 12 12 Glucose 116 H 81 Calculated Osmolality 323 H 331 H Calcium 9.3 9.1 Corrected Calcium 10.0 9.7 Phosphorus 5.8 H 5.5 H Magnesium 2.3 Total Bilirubin 0.4 AST 40 H ALT 40 Alkaline Phosphatase 175 H D Lactate Dehydrogenase 229 Albumin 3.1 L 3.2 L Misc Test Result Platelets confirmed Blood Type O Positive Antibody Screen NEGATIVE Crossmatch See Detail Blood Bank Wristband ID Yes 02/06/25 08:25 WBC 3.6 L RBC 2.56 L Hgb 7.3 L D Hct 22.3 L MCV 87 MCH 28.5 MCHC 32.7 RDW Std Deviation 61.2 H Plt Count 52 L Neut % (Auto) 63 Lymph % (Auto) 15 [place] % (Auto) 7 Eos % (Auto) 15 H Baso % (Auto) 0 Neut # (Auto) 2.3 Lymph # (Auto) 0.5 L [place] # (Auto) 0.2 Eos # (Auto) 0.5 Baso # (Auto) 0.0 Immature Gran # (Auto) 0.03 H Absolute Nucleated RBC 0.02 H Immature Gran % 1 H Nucleated RBC % 1 H Puncture Site ABG pH ABG pCO2 ABG pO2 ABG HCO3 ABG O2 Saturation ABG Base Excess VBG pH VBG pCO2 VBG pO2 VBG O2 Sat (Gretel) VBG Base Excess FiO2 Sodium Potassium Chloride Carbon Dioxide Anion Gap BUN Creatinine Estim Creat Clear Calc eGFR BUN/Creatinine Ratio Glucose Calculated Osmolality Calcium Corrected Calcium Phosphorus Magnesium Total Bilirubin AST ALT Alkaline Phosphatase Lactate Dehydrogenase Albumin Misc Test Result Platelets confirmed Blood Type Antibody Screen Crossmatch Blood Bank Wristband ID Assessment & Plan Additional Assessment Additional Assessment: In brief this is a 64-year-old male admitted to the ICU for septic shock a/p [employer] Encephalopathy-likely both related to sepsis and underlying metabolic issues. Patient's baseline is suboptimal at best. - Does not appear to be in active pain therefore we will hold his fentanyl - Likely secondary to his worsening hyponatremia CV Shock-distributive and felt to be underlying sepsis though cultures have all been negative, continued antibiotics - Currently resolved and off of Levophed - Continue midodrine - All cultures are negative to date Resp Acute hypoxic respiratory failure -currently intubated on mechanical ventilation, follow-up chest x-ray and ABG -Some respiratory alkalosis noted on ABG therefore rate decreased on the vent -Unable to wean further due to mentation aspiration pneumonia-continue current antibiotics and follow-up on cultures Pleural effusion-diuresis as able, will evaluate if large enough for thoracentesis Renal Acute on chronic kidney disease-nephrology recommendations appreciated -Monitor I's and O's Anasarca-currently unable to diurese -Once hyponatremia is corrected will be able to continue diuresis Hypernatremia-will provide free water -Free water order was missed overnight and started at 5 AM therefore the sodium of 162 this morning is not reflective of the free water at 150 cc which was ordered yesterday. Will follow-up on sodium checks every 6 hours. Hypophosphatemia-secondary acute kidney injury GI GI prophylaxis-PPI Nutrition-tube feeds Transaminitis- felt to be secondary to his shock. T. bili is within normal limits therefore not an obstructive pattern - LFTs are improving Endo Stable Heme Anemia-no active bleeding noted -Did receive a unit of PRBCs for hemoglobin of 5.8 February 04 -Received additional unit of PRBC today for hemoglobin of 6 -No gross bleeding noted however has not received sufficient volume to think that this is hemodilutional. Thrombocytopenia-in the setting of sepsis - No active bleeding, no need for transfusion DVT prophylaxis-heparin 5000 every 8 ID Sepsis-meets SIRS criteria with multiple possible sources. On antibiotics. It is noted that no cultures are positive but the patient has been on antibiotics for several weeks at this point in time. Case discussed with ICU team, discussed with nephrology DNR and family will discuss possible comfort Labs imaging and records reviewed Approximately 40 critical care was required evaluation, exam, review, intervention, discussion formulation of plan of care plus critically ill patient with shock and acute respiratory failure who is at high risk for further and ongoing decompensation Provider Notation Provider Notation: Although this document has been carefully reviewed, there may still be some phonetic and other typographical errors. These errors are purely grammatical due to imperfections in the software program and should not be construed in any way to compromise the substance of the patient's medical care during this visit. Thank you for the opportunity and privilege in assisting you with this patient's care and management.
[2025-02-06 13:13] LABS: Albumin/Globulin Ratio 1.7 (1.2-2.2); Globulin 1.9 gm/dL (2.3-3.5); Total Protein 5.1 gm/dL (5.7-8.2)
[2025-02-06 13:14] LABS: Sodium 162 mMol/L (136-145)
[2025-02-06 13:30] LABS: Ferritin 972 ng/mL (10.5-307.3)
[2025-02-06 18:19] LABS: Sodium 156 mMol/L (136-145)
[2025-02-07] VITALS (73 sets, daily range): BP systolic 82–178; BP diastolic 39–78; PULSE 46–118; RESP 12–15; TEMP 36.1–37.2; O2SAT 99–100; BMI 29.5
[2025-02-07 01:03] LABS: Sodium 155 mMol/L (136-145)
[2025-02-07] MEDS: MIDODRINE 5 MG TABLET 10 MG PO ×2 (05:15→13:59)
[2025-02-07] MEDS: SEVELAMER CARBONATE 800 MG TABLET NG ×2 (05:15→13:59)
[2025-02-07] MEDS: PIPER/TAZO 3.375 GM PREMIX 3.375 GM/50 ML BAG IV (05:15)
[2025-02-07 05:41] LABS: Base Excess -1 (-3-3); HCO3 23 mEq/L (20-26); Inspired O2, VO2 Liters 100 L/min; Inspired Oxygen, FIO2 30 %; O2 Saturation 100 % (91-98); PCO2 36 mmHg (32.0-48.0); PO2 134 mmHg (83-108); Puncture Site Arterial Line; pH, Arterial 7.42 (7.35-7.45)
[2025-02-07 06:23] LABS: Basophils # (Auto) 0.0 Thou/mm3 (0.0-0.2); Basophils % (Auto) 0 % (0-2.5); Eosinophils # (Auto) 1.0 Thou/mm3 (0.0-0.5); Eosinophils % (Auto) 20 % (0-10); Hematocrit 23.1 % (41.0-53.0); Immature Granulocytes Auto 0.08 Thou/mm3 (0.00-0.00); Lymphocytes # (Auto) 0.7 Thou/mm3 (1.0-4.8); Lymphocytes % (Auto) 14 % (10-50); Mean Corpuscular HGB Conc 32.9 g/dl (31.0-37.0); Mean Corpuscular Hemoglobin 28.4 pg (25.0-35.0); Mean Corpuscular Volume 86 fL (80-100); Monocytes # (Auto) 0.3 Thou/mm3 (0.0-0.8); Monocytes % (Auto) 6 % (0-12); Neutrophils # (Auto) 2.8 Thou/mm3 (1.8-7.7); Neutrophils % (Auto) 59 % (37-80); Nucleated Red Blood Cell # 0.02 Thou/mm3 (0.00-0.00); Nucleated Red Blood Cell % 0 /100 WBC (0); RDW Standard Deviation 61.7 fL (35.1-43.9); Red Blood Count 2.68 Miln/mm3 (4.50-5.90); White Blood Count 4.8 Thou/mm3 (3.8-10.6)
[2025-02-07 06:27] LABS: Hemoglobin 7.6 g/dL (13.5-16.0); Platelet Count 46 Thou/mm3 (140-440)
[2025-02-07 06:33] LABS: Alanine Aminotransferase 30 U/L (10-49); Albumin, Serum 2.9 gm/dL (3.4-4.8); Albumin/Globulin Ratio 1.6 (1.2-2.2); Alkaline Phosphatase 169 U/L (46-116); Anion Gap 13 (7-16); Aspartate Amino Transferase 29 U/L (0-34); BUN/Creatinine Ratio 12 Ratio (12-20); Bilirubin,Total 0.7 mg/dL (0.3-1.2); Blood Urea Nitrogen 52 mg/dL (9-23); Calcium 8.4 mg/dL (8.3-10.6); Calcium (Corrected) 9.3 mg/dL (8.5-10.1); Carbon Dioxide 23.4 mMol/L (20.0-31.0); Chloride 117 mMol/L (98-107); Creatinine (Component) 4.2 mg/dL (0.6-1.3); Estimated Creatinine Clearance 19.7 mL/min (>60); Globulin 1.8 gm/dL (2.3-3.5); Glucose 88 mg/dL (74-106); Magnesium 1.8 mg/dL (1.6-2.6); Osmolality,Calculated 316 (275-295); Phosphorous 4.9 mg/dL (2.4-5.1); Potassium 4.0 mMol/L (3.4-5.1); Sodium 153 mMol/L (136-145); Total Protein 4.7 gm/dL (5.7-8.2); eGFR 15 See Note
--- NOTE | 2025-02-07 07:04 | ESPR_ITS ---
<Statement entered by Ryan Benitez MD - 02/07/25 17:54> I have reviewed the note and agree with the resident's assessment & plan with exceptions as below. I have personally reviewed labs, imaging, home meds/prior records, examined the patient, formulated and discussed management plan with the IM team. Patient examined at bedside today. Patient remains intubated at this time, sedation was shortly turned off and patient continues to be altered and not waking up from sedation. Urine output past 24 hours was 980 cc, however has slowed down and is not making urine at this time. Creatinine continues to rise at 4.2. Patient's prognosis remains poor not a candidate for dialysis at this time. Platelets continue to drop with 46. Ordered additional albumin and Bumex for diuresis. Family came by later decided to pursue comfort measures for the patient. Organ donor organization spoke with family to inquire about organ donation possibility, however patient will continue with comfort care. Patient was extubated, art line removed, and comfort measures were initiated. Patient was then downgraded to [facility]. Ryan Benitez, PGY-2 Internal Medicine Documentation for date of: 02/07/25 Subjective Subjective Interval history: This patient is a 64-year-old male with history of atrial fibrillation (was previously on Eliquis), CAD status post multiple stents, CVA, wheelchair-bound, CKD, Castorena's esophagus, esophageal ulcers with past upper GI bleed, and chronic osteomyelitis of the lower thoracic spine who presented to [facility] ED on 02/[address] [facility] for altered mental status. The patient was admitted to the ICU for management of shock requiring vasopressors. This patient is very well-known to [facility] and was recently discharged on 01/27 after presenting very similarly. At that time, the patient was admitted to ICU for management of shock requiring vasopressors, was found to have small and stable subdural hemorrhage which prompted neurology to recommend holding the patient's anticoagulation, and discharged on his home regimen of doxycycline and Keflex which was prescribed until per ID consultation from her previous hospitalization for the patient's chronic osteomyelitis. It is unclear how much mental capabilities the patient recovered as the patient's baseline and resolved the patient having limited vocabulary, but is able to eat on his own. The patient remained stable for a few days until around 01/31 when the noticed that the patient became much less responsive and would not eat his food. On 02/02 in the morning, nursing staff noted that the patient had hypoglycemia with a blood glucose of 55, hypotension, and a fever of 102 ?F. According to the patient's , the patient was seemingly tensed up and appeared to be silently screaming the night before. The believes that the patient is in pain and is trying to communicate, but is unable to. Additionally, the patient's notes that the patient's arms became swollen, but the swelling has since decreased with some residual swelling in the patient's right arm. Of note, the patient was made limited code during the previous hospitalization, but the patient's has revoked that and made the patient full code for this hospitalization. The patient's has signed a POLST form reflecting this decision. The patient was unable to provide any history as he was unresponsive and seemingly staring off into space with random jerking motions. ED course: Patient presented with vital significant for blood pressure of 83/60 and temperature of 86 ?F. Patient was given an amp of D50 due to blood glucose being 54 on initial evaluation. Initial labs were significant for WBC 3.0, hemoglobin 7.8, platelets 93, INR 1.5, sodium 151, potassium 5.4, chloride 123, bicarb 17.3, creatinine 2.3, AST 58, alk phos 225, and lactic acid of 2.8. Relevant labs within normal limits include procalcitonin and bilirubin of 0.4. Urinalysis was positive for leukocyte esterases, 172 WBC, and rare urine bacteria. CT head shows bilateral chronic subdural hygromas while CT chest/abdomen versus pelvis shows bibasilar pneumonia, severely atrophic left kidney, and urinary bladder contracted around a Tenorio catheter with urinary bladder wall thickening. The patient was given 1 amp of D50, 3 L of LR, and started on dexamethasone. When the patient's blood pressure send the decreased to below 65 MAP after fluid resuscitation, Levophed was started. Central line and arterial line were placed. 02/03/25: Patient was seen and assessed at bedside. No longer hypothermic after midnight. Patient had decreased urine output, about 5 cc/h. Levophed increased this morning due to low MAP. On exam, alert and hide tracking but not conversational. Open wound at thoracic spine does show signs of worsening infection. Will obtain MRI thoracic spine to rule out potential abscess or discitis. Sodium and chloride continue to be elevated, started on D5W maintenance. Continues to have high anion gap metabolic acidosis. Urine electrolytes showed elevated urine anion gap of 24, likely secondary to RTA. Started on Bicitra 30 mg 3 times daily. Follow-up renal panel. 02/04/2025: Patient was seen and examined bedside's morning. Patient overnight was having agonal breathing and was placed on high flow nasal cannula and chest x-ray was again assessed as for which showed the patient had some pulmonary edema therefore got Bumex x 1. On assessment today patient did not seem to have more peripheral edema and on auscultation there were decreased breath sounds. Given the findings and the chest x-ray findings as well we will order 1 mg of Bumex x 1. Patient was also found to have a hemoglobin 5.8 which could have been hemodilutional given that he was on D5W, but 1 PRBC was transfused and patient's hemoglobin did uptrend to 7.3, but at this time there are no active signs of bleeding. Patient is also minimally responsive even to sternal rub not withdrawing to pain at this time, but is able to open his eyes, but not tracking. Otherwise patient still on high dose Levophed at 0.13 in the AM. Blood cultures continue to be negative at this time. Kidney function continues to uptrend with minimal urine output. Sodium still uptrending patient was hyperkalemic again overnight at 5.6 and hyperkalemia cocktail was given again. Consulted nephrology, but patient unlikely to be a candidate for HD given that patient is bedbound, also will need nephrology clearance for MRI with contrast of thoracic spine. Continue doxycycline and Zosyn. Added midodrine to help wean off Levo. 02/05/2025: Patient seen and examined at bedside. Overnight patient had episodes of hypoxia overnight to 70s. Patient was intubated using etomdate 20mg and succs 100. Given patient was noted to be bradycardic post intubation, propofol was discontinued. [place] heart block note on telel strip. Albumin given in the AM with plan for Bumex 1 mg IVP x1 30 min after albumin was initiated. Plan for Goals of Care meeting with pt , given pt is not a candidate for HD. Code status changed from full code to DNR. (patient is currently intubated) Nephro recommend free water flushes for hyponatremia. Pending ET tube secretions Cultures, pending MRI t spine read. Abx modified to provide better anaerobic coverage. d.c cefepime, start Zosyn (renally dosed 3.375 q6hr with Cr Clearance 20) 02/06/2025: Patient seen and examined at bedside. Trickle feeds were discontinued at around 0200 hrs. and patient was given 25 of albumin and subsequently 1 mg of Bumex IV. Initially the plan yesterday was to start free water flushes at 150 cc/h however free water flushes were not started. Morning labs demonstrated sodium of 162 from 158 yesterday. Free water flushes started at 150 cc/h and sodium checks every 6 hours. Overnight while the trickle feeds were discontinued patient had episode of hypoglycemia to the 60s was given amp of D50 and trickle feeds were restarted. Morning labs also demonstrated hemoglobin 6.0 given 1 unit PRBC, post transfusion h and h 7.3, has hd of CAD with stents, so goal Hgb is >8, will hold in setting of pending goals of care discussion with family, Social Work attempted to contact pt , with no answer. Message was left. Holding diuresis in setting of hyperosmolar hyponatremia. pt continues to have significant anisarca. Off levofed at 0500. RR changed on vent settings from 16 to 13 2/2 alkalemia on am abg. 02/07/2025: Patient seen and examined at bedside. came in today and decided to place patient on comfort care. was contacted by organ donation team, organs are not viable for donation, so pending intiation of comfort care measures with morphine drip and ativan prn, prior to discontinuing the endotrachial tube. ordered boiler plant operator referall. gave bumex and albumin in the AM. hypernatremia improved with free water flushes. patient extubated at 1700, and downgraded to team C. Exam Vital Signs Temp Pulse Resp BP Pulse Ox O2 Del Method O2 Flow Rate 97.0 F 58 L 16 122/56 L 100 Room Air 30 02/07/25 04:00 02/07/25 06:21 02/06/25 08:07 02/07/25 06:21 02/07/25 06:21 02/03/25 16:01 02/06/25 06:17 FiO2 30 02/07/25 06:21 Narrative Exam GENERAL: no acute distress, intubated, and later extubated HEENT: Head AT/ NC. 7.[address], taped. and later removed during extubation. Mucous membranes dry. PERRL NECK: Supple, in the extended position, no lymphadenopathy, no carotid bruits. CARDIOVASCULAR: RRR. Normal S1/S2, No m/r/g. significant edema of the upper and lower extremities, diffuse, ansiarca, to the elbows and feet with 4+ pitting edema, and 2 +in the forearms. unable to appreciate pedal pulses 2/2 significant edema RESPIRATORY: On Ventilator PEEP 5, [id number], TV 450, RR 16, On assist control, D iminished breath sounds on the R lung benitez, with crackles noted in the mid to lower lung benitez, patient was extubated at 1700hrs GASTROINTESTINAL: Abdomen soft, non tender no palpable masses. Bowel sounds present MUSCULOSKELETAL:? No cyanosis or edema, no visible joint swelling., chronic ulcer at the t11 level beefy red, see wound care note stage 4 and dusky, surrounding tissue is dark purple and red. NEUROLOGICAL: patient now extubat PSYCHIATRIC: Not assessed. SKIN: No jaundice, healing excoriations noted on the BUE, most prominent on the R shoulder. blanching macular rash noted on the abdomen, poor skin turgor, and dry and peeling skin noted on feet and hands, onychomycosis of the great toes noted. Objective Labs 02/07/25 05:00 02/07/25 05:00 Labs: Laboratory Results - last 24 hr 02/04/25 02/05/25 02/06/25 00:10 14:00 04:19 WBC RBC Hgb Hct MCV MCH MCHC RDW Std Deviation Plt Count Neut % (Auto) Lymph % (Auto) [place] % (Auto) Eos % (Auto) Baso % (Auto) Neut # (Auto) Lymph # (Auto) [place] # (Auto) Eos # (Auto) Baso # (Auto) Immature Gran # (Auto) Absolute Nucleated RBC Immature Gran % Nucleated RBC % Puncture Site ABG pH ABG pCO2 ABG pO2 ABG HCO3 ABG O2 Saturation ABG Base Excess Oxygen Liter Flow FiO2 Sodium Potassium Chloride Carbon Dioxide Anion Gap BUN Creatinine Estim Creat Clear Calc eGFR BUN/Creatinine Ratio Glucose Calculated Osmolality Calcium Corrected Calcium Phosphorus Magnesium Ferritin 972 H Total Bilirubin AST ALT Alkaline Phosphatase Total Protein 5.1 L Albumin Globulin 1.9 L Albumin/Globulin Ratio 1.7 Misc Test Result Platelets confirmed Blood Type O Positive Antibody Screen NEGATIVE Crossmatch See Detail Blood Bank Wristband ID Yes 02/06/25 02/06/25 02/06/25 08:25 12:09 18:00 WBC 3.6 L RBC 2.56 L Hgb 7.3 L D Hct 22.3 L MCV 87 MCH 28.5 MCHC 32.7 RDW Std Deviation 61.2 H Plt Count 52 L Neut % (Auto) 63 Lymph % (Auto) 15 [place] % (Auto) 7 Eos % (Auto) 15 H Baso % (Auto) 0 Neut # (Auto) 2.3 Lymph # (Auto) 0.5 L [place] # (Auto) 0.2 Eos # (Auto) 0.5 Baso # (Auto) 0.0 Immature Gran # (Auto) 0.03 H Absolute Nucleated RBC 0.02 H Immature Gran % 1 H Nucleated RBC % 1 H Puncture Site ABG pH ABG pCO2 ABG pO2 ABG HCO3 ABG O2 Saturation ABG Base Excess Oxygen Liter Flow FiO2 Sodium 162 H* 156 H Potassium Chloride Carbon Dioxide Anion Gap BUN Creatinine Estim Creat Clear Calc eGFR BUN/Creatinine Ratio Glucose Calculated Osmolality Calcium Corrected Calcium Phosphorus Magnesium Ferritin Total Bilirubin AST ALT Alkaline Phosphatase Total Protein Albumin Globulin Albumin/Globulin Ratio Misc Test Result Platelets confirmed Blood Type Antibody Screen Crossmatch Blood Bank Wristband ID 02/07/25 02/07/25 02/07/25 00:22 05:00 05:12 WBC 4.8 RBC 2.68 L Hgb 7.6 L Hct 23.1 L MCV 86 MCH 28.4 MCHC 32.9 RDW Std Deviation 61.7 H Plt Count 46 L Neut % (Auto) 59 Lymph % (Auto) 14 [place] % (Auto) 6 Eos % (Auto) 20 H Baso % (Auto) 0 Neut # (Auto) 2.8 Lymph # (Auto) 0.7 L [place] # (Auto) 0.3 Eos # (Auto) 1.0 H Baso # (Auto) 0.0 Immature Gran # (Auto) 0.08 H Absolute Nucleated RBC 0.02 H Immature Gran % 2 H Nucleated RBC % 0 Puncture Site Arterial Line ABG pH 7.42 ABG pCO2 36 ABG pO2 134 H ABG HCO3 23 ABG O2 Saturation 100 H ABG Base Excess -1 Oxygen Liter Flow 100 FiO2 30 Sodium 155 H 153 H Potassium 4.0 Chloride 117 H Carbon Dioxide 23.4 Anion Gap 13 BUN 52 H Creatinine 4.2 H* Estim Creat Clear Calc 19.7 L eGFR 15 L BUN/Creatinine Ratio 12 Glucose 88 Calculated Osmolality 316 H Calcium 8.4 Corrected Calcium 9.3 Phosphorus 4.9 Magnesium 1.8 Ferritin Total Bilirubin 0.7 AST 29 ALT 30 Alkaline Phosphatase 169 H Total Protein 4.7 L Albumin 2.9 L Globulin 1.8 L Albumin/Globulin Ratio 1.6 Misc Test Result Blood Type Antibody Screen Crossmatch Blood Bank Wristband ID ABG Interpretation ABG results: 02/02/25 02/03/25 02/03/25 19:07 11:09 23:50 ABG pH 7.46 H ABG pCO2 26 L ABG pO2 64 L ABG HCO3 19 L ABG O2 Saturation 95 ABG Base Excess -5 L VBG pH 7.38 7.40 VBG pCO2 30 L 23 L VBG pO2 65 H 81 H VBG Base Excess -7 L -10 L 02/04/25 02/05/25 02/05/25 08:40 00:47 01:25 ABG pH 7.20 L D 7.27 L ABG pCO2 58 H D 46 D ABG pO2 124 H D 358 H D ABG HCO3 22 21 ABG O2 Saturation 98 100 H ABG Base Excess -6 L -6 L VBG pH 7.47 VBG pCO2 27 L VBG pO2 169 H D VBG Base Excess -4 L 02/05/25 02/05/25 02/06/25 04:36 08:10 04:19 ABG pH 7.45 D 7.39 7.47 H ABG pCO2 29 L D 35 32 ABG pO2 333 H D 126 H D 147 H D ABG HCO3 20 21 23 ABG O2 Saturation 100 H 99 H 100 H ABG Base Excess -3 -4 L -1 VBG pH 7.49 VBG pCO2 31 L VBG pO2 161 H VBG Base Excess 0 02/07/25 05:12 ABG pH 7.42 ABG pCO2 36 ABG pO2 134 H ABG HCO3 23 ABG O2 Saturation 100 H ABG Base Excess -1 VBG pH VBG pCO2 VBG pO2 VBG Base Excess Quality Measures Quality Measures VTE prophylaxis and sepsis Current suspected stage: ruled out Possible source: pulmonary, genitourinary and skin/soft tissue Blood cultures ordered: yes Antibiotic ordered: No Assessment & Plan Assessment Current Active Medications: Generic Name Dose Route Start Last Admin Trade Name Freq PRN Reason Stop Dose Admin Citric Acid/Sodium Citrate 30 ml 02/03/25 19:09 02/06/25 20:56 Citric Acid/Sodium Citr 15 Ml Udc (Bicitra) NG 03/05/25 19:08 30 ml BID HANNAH Administration Dextrose 50 ml 02/03/25 00:23 02/06/25 12:17 Dextrose 50%-Water Inj 50 Ml Syringe IVP 03/05/25 00:22 50 ml Q30MIN PRN Administration HYPOGLYCEMIA Heparin Sodium (Porcine) 5,000 unit 02/06/25 21:00 02/06/25 20:56 Heparin Sod Inj 5000 Unit/Ml Vial SC 02/20/25 20:59 5,000 unit Q12HR HANNAH Administration Norepinephrine Bitartrate 16 mg in 250 mls @ 4.176 mls/hr 02/02/25 17:11 02/06/25 05:00 Levophed In Ns 16mg/250ml IV 03/04/25 17:10 0 mcg/kg/min .Q24H PRN 0 mls/hr PER protocol Titration Protocol 0.05 MCG/KG/MIN Dexmedetomidine/Sodium Chloride 400 mcg in 100 mls @ 4.445 mls/hr 02/03/25 10:05 Precedex Ivpb IV 03/05/25 10:04 .[id number] PRN Per PROTOCOL Protocol 0.2 MCG/KG/HR Dextrose 1,000 mls @ 100 mls/hr 02/03/25 10:15 02/03/25 23:45 D5w IV 03/05/25 10:14 0 mls/hr On Hold: 02/03/25 23:54 .Q10H HANNAH Infusion Doxycycline Hyclate 100 mg/ 100 mls @ 100 mls/hr 02/04/25 21:00 02/06/25 20:56 Sodium Chloride IV 02/11/25 20:59 100 mls/hr BID HANNAH Administration Propofol 1,000 mg in 100 mls @ 2.688 mls/hr 02/05/25 00:41 02/05/25 06:00 Diprivan Ivpb IV 03/07/25 00:40 0 mcg/kg/min .Q24H PRN 0 mls/hr PER PROTOCOL Titration Protocol 5 MCG/KG/MIN Piperacillin/Tazobactam/Dextrose 3.375 gm in 50 mls @ 12.5 mls/hr 02/05/25 22:00 02/07/25 05:15 Zosyn IV 02/12/25 11:01 12.5 mls/hr Q8HR HANNAH Administration Protocol Fentanyl Citrate 2,500 mcg in 250 mls @ 2.5 mls/hr 02/06/25 09:25 Sublimaze Inj 2,500 Mcg/250 Ml Bag IV 02/10/25 01:04 .Q24H PRN PER PROTOCOL Protocol 25 MCG/HR Midodrine 10 mg 02/04/25 14:00 02/07/25 05:15 Midodrine 5 Mg Tablet PO 03/06/25 13:59 10 mg TID HANNAH Administration Ondansetron HCl 4 mg 02/02/25 11:01 Ondansetron Inj 2 Mg/Ml Inj 2 Ml IVP 03/04/25 11:00 Q6HR PRN NAUSEA OR VOMITING Pantoprazole Sodium 40 mg 02/06/25 09:00 02/06/25 08:46 Pantoprazole Inj 40 Mg Vial IVP 03/08/25 08:59 40 mg QDAY HANNAH Administration Sevelamer Carbonate 800 mg 02/05/25 14:00 02/07/25 05:15 Sevelamer Carbonate 800 Mg Tablet NG 03/07/25 13:59 800 mg TID HANNAH Administration Plan Assessment: Patient is a 64-year-old male with history of atrial fibrillation (was previously on Eliquis), CAD status post multiple stents, CVA, wheelchair-bound, CKD, Castorena's esophagus, esophageal ulcers with past upper GI bleed, and chronic osteomyelitis of the lower thoracic spine who presented to [facility] ED on 02/[address] [facility] for altered mental status. The patient was admitted to the ICU for management of shock requiring vasopressors. Code status changed to DNR, pt is currently intubated. 02/06 off pressers. Patient placed on comfort care measures as of 02/07, plan to extubate at 1700 hrs NEURO #Acute encephalopathy DDx: Metabolic derangement, distributive shock Diagnostic workup: - CT head with stable chronic subdural hygromas unlikely contributing to patient current condition. EEG with no epileptiform discharges. - No additional diagnostic workup indicated today - WBC within normal limits, CTM Treatment: -On IV Doxy (02/04-), Cefepime (02/02?02/05), Zosyn 3.375 gm q6hr (02/05-02/07) #Bilateral subdural hygromas, chronic Diagnostic workup: CT head 02/02 shows bilateral chronic subdural hygromas with mild mass effect upon the right lateral ventricle system with shift of frontal horns to the left by 3 mm Treatment: - No active management at this time CARDIO #Hypothermia Likely 2/2 distributive shock and insensible losses. Treatment: - Bear hugger #Shock- resolved Likely distributive, low suspicion for cardiogenic, likely 2/2 uti vs aspiration pna Treatment: - Vancomycin (02/02-), Doxycycline (02/02-02/07) and Cefepime (02/02?02/05), Zosyn 3.375 q6hr (02/05-02/07) #CHF exacerbation #HFpEF (55-60% EF 12/2024) patient continues to have significant anisarca in bilateral upper and lower extremities, Treatment plan: - Gave albumin and bumex 2 mg IV today. #Mobitz Type I Wenkebach Tele strip 02/05 @0100 with increasing TN interval and dropped beat #Atrial fibrillation Diagnostic workup: - Patient has a history of atrial fibrillation and previously took Eliquis, but this was put on hold from the patient's previous hospital admission until the patient could be re-evaluated outpatient #Hx CAD with stents #Elevated troponins (resolved) #NSTEMI type II (resolved) PULM #Acute hypoxic Respirtory failure Diagnostic work up - ABGs Treatment - patient was extubated at 1700 today 02/07 #Respiratory Alkalosis #Aspiration Pneumonia vs Pneumonitis Ddx: aspiration post intubation, trickle feeds were started 02/04 given persistent hypoglycemia d/c antibiotics #Pulmonary Edema #Bilateral pleural effusions (L>R) with compressive atelectasis GI #History of Castorena's esophagus #History of esophageal ulcers with upper GI bleed- no active bleeding stools have not demonstrated any lilibeth blood per rectum, no melenic stools noted. Abdomen is nontender on exam. # Transaminitis (downtrending ) Ddx Transaminitis likely 2/2 ischemic inury to liver in setting of suspected distributive shock, possible that uptrending AST and ALT are 2/2 medication induced (pt was on cefepime, now on zosyn) # ?Primary hepatocellular disease Diagnostic Workup: - Abdominal US with lobular iver contour, suspect primary hepatocellular dz. - Hep panel non reactive Treatment - no active treatment at this time Treatment follow up: - daily cmp #Nutrition #Persistent Hypoglycemia d/c feeds NEPHRO #ARIA on CKD IV Diagnostic workup - Daily CMP, follow up PM renal panel - Cr 2.3 (on admission) -> 3.8->4.2 Treatment - nephrology consulted, patient is not a candidate for HD #CKD stage IV (GFR 20) #Lactic acidosis (downtrending) #Hyperosmolar hypernatremia - improved #Hypochloremia - stable, persists #Hyperphosphatemia (improvng) d/c sevalemer #Normal anion gap metabolic acidosis- resolvng #RTA d/c bicitra #Bilateral renal cysts #Atrophic left kidney Diagnostic workup - As noted on CT chest/abdomen/pelvis on 02/02 Treatment: -No active treatment at this time URO #Indwelling tenorio catheter- chronic HEME #Pancytopenia Likely secondary to shock #Acute on chronic normocytic anemia #Acute on Chronic Thrombocytopenia ENDO No active problems ID #History of chronic osteomyelitis T12-L2 #History of Enterococcus faecalis in urine d/c antibiotics SKIN #Stage IV ulcer, lower back, T11-T12 d/c antibiotics #Multiple scattered scabs #Blanching Macular Rash on Abdomen ICU Health maintenance: Mechanical ventilation:no patient was extubated today at 1700 and comfort care was intiated. Sedation: not on sedation Diet: NPO, DVT prophylaxis: not indicatd GI prophylaxis: Protonix 40 QD given patient is currently intubated Tenorio: Yes Lines: d/c art line, d/c ng tube Antibiotics: comfort care CODE STATUS: Full Case disclosed with my senior resident Dr. Benitez and my Attending Dr. Clayton Bright MD PGY1
[2025-02-07] MEDS: Magnesium Sulfate 2 GM Ivpb 2 GM/50 ML BAG IV (08:06)
[2025-02-07] MEDS: CITRIC ACID/SODIUM CITR 15 ML UDC (BICITRA) 30 ML NG (08:06)
[2025-02-07] MEDS: DOXYCYCLINE INJ 100 MG in SODIUM CHLORIDE 0.9% (POP) 100 ML IV (08:07)
[2025-02-07] MEDS: HEPARIN SOD INJ 5000 UNIT/ML VIAL SC (08:15)
--- NOTE | 2025-02-07 08:36 | XR_ITS ---
EXAMINATION: AP chest single view TECHNIQUE: AP portable semiupright chest single view Date and time: February 07, 2025, 0858 hours, comparison February 06, 2025 INDICATIONS: Hypoxic respiratory failure, post intubation, pneumonia ARDS on earlier chest films. FINDINGS: No significant cardiac enlargement Extensive bilateral pneumonia Right internal jugular central line tip satisfactory position Endotracheal tube tip 3.4 cm above ernestine Orogastric tube in the stomach, the tip is below the level of IMPRESSION: Extensive bilateral pneumonia again noted
--- NOTE | 2025-02-07 09:04 | PC.SS ---
TRAVEL NURSE attempted phone contact with patient's spouse, Sheila Watkins [phone]. No response. TRAVEL NURSE left voicemail requesting return call. TRAVEL NURSE following up on comfort care decision.
--- NOTE | 2025-02-07 09:07 | PD.RESPRO ---
Documentation for date of: 02/07/25 Subjective Subjective Interval history: Reason for consult: ARIA on CKD History of present illness: Agustin Schrader 64M with history of atrial fibrillation (was previously on Eliquis), CAD status post multiple stents, CVA, wheelchair-bound, CKD, Castorena's esophagus, esophageal ulcers with past upper GI bleed, and chronic osteomyelitis of the lower thoracic spine who presented to [facility] on 02/02 from [facility] for altered mental status. The patient was admitted to the ICU for management of shock requiring vasopressors. This patient is very well-known to [facility] and was recently discharged on 01/27 after presenting very similarly. At that time, the patient was admitted to ICU for management of shock requiring vasopressors, was found to have small and stable subdural hemorrhage which prompted neurology to recommend holding the patient's anticoagulation, and discharged on his home regimen of doxycycline and Keflex which was prescribed until per ID consultation from her previous hospitalization for the patient's chronic osteomyelitis. It is unclear how much mental capabilities the patient recovered as the patient's baseline and resolved the patient having limited vocabulary, but is able to eat on his own. The patient remained stable for a few days until around 01/31 when the noticed that the patient became much less responsive and would not eat his food. On 02/02 in the morning, nursing staff noted that the patient had hypoglycemia with a blood glucose of 55, hypotension, and a fever of 102 ?F. According to the patient's , the patient was seemingly tensed up and appeared to be silently screaming the night before. The believes that the patient is in pain and is trying to communicate, but is unable to. Additionally, the patient's notes that the patient's arms became swollen, but the swelling has since decreased with some residual swelling in the patient's right arm. Of note, the patient was made limited code during the previous hospitalization, but the patient's has revoked that and made the patient full code for this hospitalization. The patient's has signed a POLST form reflecting this decision. The patient was unable to provide any history as he was unresponsive and seemingly staring off into space with random jerking motions. Nephrology consulted for ARIA on CKD IV. 02/04/2025: Patient seen and examined at bedside in ICU. Patient is not arousable to verbal stimulation, grimacing and groaning with sternal rub, sleepy. Patient on high flow 40L and levophed. Nephrology consulted for ARIA on CKD 4, cleared from nephrology to obtain low ionic contrast MRI spine. Patient is clinically hypervolemic and fluid overloaded, recommend against further IVF. Given clinical picture, patient is not a candidate for hemodialysis as he has significant comorbidities such as hx of osteomyelitis and frequent episodes of sepsis requiring hospitalization. 02/05/25: Patient seen and examined at bedside in ICU. Patient was intubated overnight due to acute hypoxic respiratory failure. Continues to be on Levophed, now also on propofol. Had good urine output s/p IV Bumex 1 mg x1 overnight. Recommend to schedule IV Bumex 2 mg daily with IV albumin 25g BID. Sodium increased to 158, recommend 100 mL/hr free water flushes with tube feeds (started overnight). Creatinine worsening however given poor prognosis, patient is not a candidate for HD. As noted yesterday, patient is cleared for low ionic contrast MRI spine. 02/06/25: Patient seen and examined at bedside in ICU. Intubated and sedated on propofol. Levophed increased overnight. Maintaining good urine output s/p IV Bumex 1 mg x5 yesterday. Sodium increased to 162. Free water flushes not started until 5AM today. Based on estimated free water deficit of 3.9L, recommend increasing to 165 mL free water flushes with feeds. Creatinine 3.8, continues to increase. GFR 17. Continue IV albumin and IV Bumex 2mg daily. MRI completed yesterday. ICU team spoke to family yesterday, code status changed to DNR. Will speak to extended family today about transitioning to comfort care. 02/07/25: Patient seen and examined at bedside in ICU. Intubated and sedated on propofol, off Levophed. Continues to appear hypervolemic on exam. Maintaining good urine output. Sodium improved to 153. Continue 150 cc free water flushes with tube feeds. Creatinine continue to worsen, 4.2 today. Per primary team, family agreeable to transitioning patient to comfort care. Exam Vital Signs Temp Pulse Resp BP Pulse Ox O2 Del Method O2 Flow Rate 97.0 F 54 L 16 116/58 L 100 Room Air 30 02/07/25 04:00 02/07/25 07:45 02/06/25 08:07 02/07/25 07:45 02/07/25 07:45 02/03/25 16:01 02/06/25 06:17 FiO2 30 02/07/25 06:21 Narrative Exam Physical Exam General: Intubated and sedated. HEENT: Normocephalic, atraumatic, mucous membranes dry. Right IJ central line. NG tube placed. Heart: Irregular rate and rhythm, normal S1 and S2, no murmurs. Lungs: Decreased breath sounds in right lower lobe. Abdomen: Soft, nondistended, positive bowel sounds. Neurologic: Unable to assess due to sedation. Extremities: Non pitting edema of bilateral upper and lower extremities. Skin: No rash or ecchymoses. Dry flaky skin with scattered scabs, mostly around upper extremities. Objective Labs 02/07/25 05:00 02/07/25 05:00 Labs: Laboratory Results - last 24 hr 02/04/25 02/05/25 02/06/25 00:10 14:00 04:19 WBC RBC Hgb Hct MCV MCH MCHC RDW Std Deviation Plt Count Neut % (Auto) Lymph % (Auto) [place] % (Auto) Eos % (Auto) Baso % (Auto) Neut # (Auto) Lymph # (Auto) [place] # (Auto) Eos # (Auto) Baso # (Auto) Immature Gran # (Auto) Absolute Nucleated RBC Immature Gran % Nucleated RBC % Puncture Site ABG pH ABG pCO2 ABG pO2 ABG HCO3 ABG O2 Saturation ABG Base Excess Oxygen Liter Flow FiO2 Sodium Potassium Chloride Carbon Dioxide Anion Gap BUN Creatinine Estim Creat Clear Calc eGFR BUN/Creatinine Ratio Glucose Calculated Osmolality Calcium Corrected Calcium Phosphorus Magnesium Ferritin 972 H Total Bilirubin AST ALT Alkaline Phosphatase Total Protein 5.1 L Albumin Globulin 1.9 L Albumin/Globulin Ratio 1.7 Misc Test Result Platelets confirmed Crossmatch See Detail 02/06/25 02/06/25 02/06/25 08:25 12:09 18:00 WBC RBC Hgb Hct MCV MCH MCHC RDW Std Deviation Plt Count Neut % (Auto) Lymph % (Auto) [place] % (Auto) Eos % (Auto) Baso % (Auto) Neut # (Auto) Lymph # (Auto) [place] # (Auto) Eos # (Auto) Baso # (Auto) Immature Gran # (Auto) Absolute Nucleated RBC Immature Gran % Nucleated RBC % Puncture Site ABG pH ABG pCO2 ABG pO2 ABG HCO3 ABG O2 Saturation ABG Base Excess Oxygen Liter Flow FiO2 Sodium 162 H* 156 H Potassium Chloride Carbon Dioxide Anion Gap BUN Creatinine Estim Creat Clear Calc eGFR BUN/Creatinine Ratio Glucose Calculated Osmolality Calcium Corrected Calcium Phosphorus Magnesium Ferritin Total Bilirubin AST ALT Alkaline Phosphatase Total Protein Albumin Globulin Albumin/Globulin Ratio Misc Test Result Platelets confirmed Crossmatch 02/07/25 02/07/25 02/07/25 00:22 05:00 05:12 WBC 4.8 RBC 2.68 L Hgb 7.6 L Hct 23.1 L MCV 86 MCH 28.4 MCHC 32.9 RDW Std Deviation 61.7 H Plt Count 46 L Neut % (Auto) 59 Lymph % (Auto) 14 [place] % (Auto) 6 Eos % (Auto) 20 H Baso % (Auto) 0 Neut # (Auto) 2.8 Lymph # (Auto) 0.7 L [place] # (Auto) 0.3 Eos # (Auto) 1.0 H Baso # (Auto) 0.0 Immature Gran # (Auto) 0.08 H Absolute Nucleated RBC 0.02 H Immature Gran % 2 H Nucleated RBC % 0 Puncture Site Arterial Line ABG pH 7.42 ABG pCO2 36 ABG pO2 134 H ABG HCO3 23 ABG O2 Saturation 100 H ABG Base Excess -1 Oxygen Liter Flow 100 FiO2 30 Sodium 155 H 153 H Potassium 4.0 Chloride 117 H Carbon Dioxide 23.4 Anion Gap 13 BUN 52 H Creatinine 4.2 H* Estim Creat Clear Calc 19.7 L eGFR 15 L BUN/Creatinine Ratio 12 Glucose 88 Calculated Osmolality 316 H Calcium 8.4 Corrected Calcium 9.3 Phosphorus 4.9 Magnesium 1.8 Ferritin Total Bilirubin 0.7 AST 29 ALT 30 Alkaline Phosphatase 169 H Total Protein 4.7 L Albumin 2.9 L Globulin 1.8 L Albumin/Globulin Ratio 1.6 Misc Test Result Crossmatch ABG Interpretation ABG results: 02/02/25 02/03/25 02/03/25 19:07 11:09 23:50 ABG pH 7.46 H ABG pCO2 26 L ABG pO2 64 L ABG HCO3 19 L ABG O2 Saturation 95 ABG Base Excess -5 L VBG pH 7.38 7.40 VBG pCO2 30 L 23 L VBG pO2 65 H 81 H VBG Base Excess -7 L -10 L 02/04/25 02/05/25 02/05/25 08:40 00:47 01:25 ABG pH 7.20 L D 7.27 L ABG pCO2 58 H D 46 D ABG pO2 124 H D 358 H D ABG HCO3 22 21 ABG O2 Saturation 98 100 H ABG Base Excess -6 L -6 L VBG pH 7.47 VBG pCO2 27 L VBG pO2 169 H D VBG Base Excess -4 L 02/05/25 02/05/25 02/06/25 04:36 08:10 04:19 ABG pH 7.45 D 7.39 7.47 H ABG pCO2 29 L D 35 32 ABG pO2 333 H D 126 H D 147 H D ABG HCO3 20 21 23 ABG O2 Saturation 100 H 99 H 100 H ABG Base Excess -3 -4 L -1 VBG pH 7.49 VBG pCO2 31 L VBG pO2 161 H VBG Base Excess 0 02/07/25 05:12 ABG pH 7.42 ABG pCO2 36 ABG pO2 134 H ABG HCO3 23 ABG O2 Saturation 100 H ABG Base Excess -1 VBG pH VBG pCO2 VBG pO2 VBG Base Excess Quality Measures Quality Measures VTE prophylaxis and sepsis Current suspected stage: ruled out Possible source: pulmonary, genitourinary and skin/soft tissue Blood cultures ordered: yes Antibiotic ordered: Yes Assessment & Plan Assessment Current Active Medications: Generic Name Dose Route Start Last Admin Trade Name Freq PRN Reason Stop Dose Admin Citric Acid/Sodium Citrate 30 ml 02/03/25 19:09 02/07/25 08:06 Citric Acid/Sodium Citr 15 Ml Udc (Bicitra) NG 03/05/25 19:08 30 ml BID HANNAH Administration Dextrose 50 ml 02/03/25 00:23 02/06/25 12:17 Dextrose 50%-Water Inj 50 Ml Syringe IVP 03/05/25 00:22 50 ml Q30MIN PRN Administration HYPOGLYCEMIA Heparin Sodium (Porcine) 5,000 unit 02/06/25 21:00 02/07/25 08:15 Heparin Sod Inj 5000 Unit/Ml Vial SC 02/20/25 20:59 5,000 unit Q12HR HANNAH Administration Norepinephrine Bitartrate 16 mg in 250 mls @ 4.176 mls/hr 02/02/25 17:11 02/06/25 05:00 Levophed In Ns 16mg/250ml IV 03/04/25 17:10 0 mcg/kg/min .Q24H PRN 0 mls/hr PER protocol Titration Protocol 0.05 MCG/KG/MIN Dexmedetomidine/Sodium Chloride 400 mcg in 100 mls @ 4.445 mls/hr 02/03/25 10:05 Precedex Ivpb IV 03/05/25 10:04 .[id number] PRN Per PROTOCOL Protocol 0.2 MCG/KG/HR Dextrose 1,000 mls @ 100 mls/hr 02/03/25 10:15 02/03/25 23:45 D5w IV 03/05/25 10:14 0 mls/hr On Hold: 02/03/25 23:54 .Q10H HANNAH Infusion Doxycycline Hyclate 100 mg/ 100 mls @ 100 mls/hr 02/04/25 21:00 02/07/25 08:07 Sodium Chloride IV 02/11/25 20:59 100 mls/hr BID HANNAH Administration Propofol 1,000 mg in 100 mls @ 2.688 mls/hr 02/05/25 00:41 02/05/25 06:00 Diprivan Ivpb IV 03/07/25 00:40 0 mcg/kg/min .Q24H PRN 0 mls/hr PER PROTOCOL Titration Protocol 5 MCG/KG/MIN Piperacillin/Tazobactam/Dextrose 3.375 gm in 50 mls @ 12.5 mls/hr 02/05/25 22:00 02/07/25 05:15 Zosyn IV 02/12/25 11:01 12.5 mls/hr Q8HR HANNAH Administration Protocol Fentanyl Citrate 2,500 mcg in 250 mls @ 2.5 mls/hr 02/06/25 09:25 Sublimaze Inj 2,500 Mcg/250 Ml Bag IV 02/10/25 01:04 .Q24H PRN PER PROTOCOL Protocol 25 MCG/HR Midodrine 10 mg 02/04/25 14:00 02/07/25 05:15 Midodrine 5 Mg Tablet PO 03/06/25 13:59 10 mg TID HANNAH Administration Ondansetron HCl 4 mg 02/02/25 11:01 Ondansetron Inj 2 Mg/Ml Inj 2 Ml IVP 03/04/25 11:00 Q6HR PRN NAUSEA OR VOMITING Pantoprazole Sodium 40 mg 02/06/25 09:00 02/07/25 08:15 Pantoprazole Inj 40 Mg Vial IVP 03/08/25 08:59 40 mg QDAY HANNAH Administration Sevelamer Carbonate 800 mg 02/05/25 14:00 02/07/25 05:15 Sevelamer Carbonate 800 Mg Tablet NG 03/07/25 13:59 800 mg TID HANNAH Administration Plan Patient is a 64 year old male with past medical history of atrial fibrillation (was previously on Eliquis), CAD status post multiple stents, CVA, wheelchair-bound, CKD, Castorena's esophagus, esophageal ulcers with past upper GI bleed, and chronic osteomyelitis of the lower thoracic spine who presented to [facility] on 02/02 from [facility] for altered mental status. The patient was admitted to the ICU for management of shock requiring vasopressors. #ARIA on CKD IV (worsening) #Bilateral renal cysts #Atrophic left kidney - Known history of CKD stage IV with baseline creatinine 1.7-2.2 on previous hospitalization for similar presentation. reports poor UOP on 02/02. - Creatinine 2.3 --> 2.8 (02/04) --> 3.1 (02/04) -> 3.3 (02/05) - CTAP showed bilateral renal cysts, severe atrophy of left kidney - S/p MRI spine with low ionic contrast 02/05 - Likely ATN 2/2 frequent insults i.e. sepsis to pre-existing CKD stage IV Plan: - Continue IV albumin 25 g TID with IV Bumex 2 mg daily, uptitrate as needed based on daily volume status - Given clinical picture, patient is not a candidate for hemodialysis given bed bound status as he will be unable to attend sessions and overall poor prognosis with large chronic wound and frequent episodes of sepsis requiring hospitalization. - Strict I/Os - Follow UOP closely - Avoid nephrotoxic agents - Renally dose medications - Per primary team, code status has been changed to DNR 02/05 after discussion with patient . Had another [facility] discussion with extended family. Given worsening prognosis, decision was made to transition patient to comfort care. #Hypernatremia - Sodium on admission 151 ->158 -> 162 -> 153 - Likely secondary to dehydration and decreased oral intake prior to admission. Per chart review, appeared hypovolemic on admission. - Patient now hypervolemic s/p IVF and D5W with decreased urine output for the past 2 days. - Free water deficit 3.7 - Likely secondary to dehydration from NPO status Plan: - Continue 150 cc free water flushes with tube feeds with goal Na 143 - Monitor sodium q6hr #Shock #Hypothermia #Acute encephalopathy #Bilateral subdural hygromas, chronic #Atrial fibrillation #Elevated troponins (resolved) #NSTEMI type II (resolved) #Bilateral pleural effusions (L>R) with compressive atelectasis #History of Castorena's esophagus #History of esophageal ulcers with upper GI bleed # Transaminitis (improving) # ?Primary hepatocellular disease #Lactic acidosis #Indwelling tenorio catheter #Pancytopenia (improving) #Electrolyte abnormalities #Hyperkalemia #Hyperchloremia #Normal anion gap metabolic acidosis #HAGMA #RTA #History of Enterococcus faecalis in urine #History of chronic osteomyelitis T12-L2 Plan: - Management per ICU team Thank you for the consultation and allowing participation in patient's care. Patient plan of care was discussed with the attending physician, Dr. Summers. Lashanda Torres DO, PGY-1 Attending Provider Attestation/Addendum Patient currently seen and examined with resident physician Dr. Torres. Note reviewed, agree with findings and recommendations. Patient currently seen in ICU. Will be transition to comfort care today.
[2025-02-07] MEDS: ALBUMIN HUMAN-KJDA 25% IVPB 25 GM/100 ML BTL IV (09:37)
--- NOTE | 2025-02-07 09:52 | PC.SS ---
TREATING PLANT SUPERVISOR received return call from patient's spouse, Sheila . TREATING PLANT SUPERVISOR informed patient's spouse that ICU medical team requesting to speak with her. TREATING PLANT SUPERVISOR transferred call to ICU resident. Patient's spouse has agreed to meet with ICU medical team today at 12:00 pm to discuss transitioning patient to comfort care measures.
[2025-02-07 10:07] LABS: Slide Review Platelets confirmed
[2025-02-07] MEDS: BUMETANIDE INJ 0.25 MG/ML VIAL 4 ML 2 MG IVP (11:11)
--- NOTE | 2025-02-07 13:14 | PD.INTPROG ---
Documentation for date of: 02/07/25 Subjective Subjective Interval history: This is a 64-year-old male well-known to the service who was admitted on 1128 for a usp. He was admitted for hypotension and sepsis which progressed to septic shock.. Overnight he decompensated and was found to be aspirating. His mentation continued to decline. He was intubated for airway protection. He was started on prop and Fent. He was noted to have some pauses on the monitor as well as some tacky bradycardia arrhythmias. His propofol was stopped. His chest x-ray is noted to have a significant worsening of right sided infiltrate. Patient was seen with nephrology today. The patient is not a good candidate for dialysis. Remains on vasopressor support. 02/06- no acute overnight events, now off vasopressors, good UOP, afebrile, patient remains profoundly encephalopathic 02/07-no acute overnight events, afebrile, adequate urinary output, remains minimally responsive Critical Care Note Critical care time (min.): 38 Exam Vital Signs Temp Pulse Resp BP Pulse Ox O2 Del Method O2 Flow Rate 97.2 F 59 L 16 101/44 L 100 Room Air 30 02/07/25 08:00 02/07/25 12:00 02/06/25 08:07 02/07/25 11:11 02/07/25 12:00 02/03/25 16:01 02/06/25 06:17 FiO2 30 02/07/25 12:00 Narrative Exam General-intubated, minimal sedation, minimally responsive HEENT-normocephalic, atraumatic, sclera icteric, oral mucosa is dry, poor dentition, ET tube and OG tube in place Chest-lung benitez are diminished, few scattered crackles at bases posteriorly, heart rate regular rhythmic, no bruits, no increased work of breathing Abdomen-soft, apparent pain on palpation on the right, bowel sounds present, no palpable megaly Extremities-edema, pulses palpable, no clubbing, no mottling Vent AC/VC Drips Fentanyl 12.5 mcg Physical Exam Completion Physical Exam Complete?: Yes Objective - Roll Scale Man Labs 02/07/25 05:00 02/07/25 05:00 Labs: Laboratory Results - last 24 hr 02/04/25 02/05/25 02/06/25 00:10 14:00 12:09 WBC RBC Hgb Hct MCV MCH MCHC RDW Std Deviation Plt Count Neut % (Auto) Lymph % (Auto) [place] % (Auto) Eos % (Auto) Baso % (Auto) Neut # (Auto) Lymph # (Auto) [place] # (Auto) Eos # (Auto) Baso # (Auto) Immature Gran # (Auto) Absolute Nucleated RBC Immature Gran % Nucleated RBC % Puncture Site ABG pH ABG pCO2 ABG pO2 ABG HCO3 ABG O2 Saturation ABG Base Excess Oxygen Liter Flow FiO2 Sodium 162 H* Potassium Chloride Carbon Dioxide Anion Gap BUN Creatinine Estim Creat Clear Calc eGFR BUN/Creatinine Ratio Glucose Calculated Osmolality Calcium Corrected Calcium Phosphorus Magnesium Ferritin 972 H Total Bilirubin AST ALT Alkaline Phosphatase Total Protein Albumin Globulin Albumin/Globulin Ratio Misc Test Result Crossmatch See Detail 02/06/25 02/07/25 02/07/25 18:00 00:22 05:00 WBC 4.8 RBC 2.68 L Hgb 7.6 L Hct 23.1 L MCV 86 MCH 28.4 MCHC 32.9 RDW Std Deviation 61.7 H Plt Count 46 L Neut % (Auto) 59 Lymph % (Auto) 14 [place] % (Auto) 6 Eos % (Auto) 20 H Baso % (Auto) 0 Neut # (Auto) 2.8 Lymph # (Auto) 0.7 L [place] # (Auto) 0.3 Eos # (Auto) 1.0 H Baso # (Auto) 0.0 Immature Gran # (Auto) 0.08 H Absolute Nucleated RBC 0.02 H Immature Gran % 2 H Nucleated RBC % 0 Puncture Site ABG pH ABG pCO2 ABG pO2 ABG HCO3 ABG O2 Saturation ABG Base Excess Oxygen Liter Flow FiO2 Sodium 156 H 155 H 153 H Potassium 4.0 Chloride 117 H Carbon Dioxide 23.4 Anion Gap 13 BUN 52 H Creatinine 4.2 H* Estim Creat Clear Calc 19.7 L eGFR 15 L BUN/Creatinine Ratio 12 Glucose 88 Calculated Osmolality 316 H Calcium 8.4 Corrected Calcium 9.3 Phosphorus 4.9 Magnesium 1.8 Ferritin Total Bilirubin 0.7 AST 29 ALT 30 Alkaline Phosphatase 169 H Total Protein 4.7 L Albumin 2.9 L Globulin 1.8 L Albumin/Globulin Ratio 1.6 Misc Test Result Platelets confirmed Crossmatch 02/07/25 05:12 WBC RBC Hgb Hct MCV MCH MCHC RDW Std Deviation Plt Count Neut % (Auto) Lymph % (Auto) [place] % (Auto) Eos % (Auto) Baso % (Auto) Neut # (Auto) Lymph # (Auto) [place] # (Auto) Eos # (Auto) Baso # (Auto) Immature Gran # (Auto) Absolute Nucleated RBC Immature Gran % Nucleated RBC % Puncture Site Arterial Line ABG pH 7.42 ABG pCO2 36 ABG pO2 134 H ABG HCO3 23 ABG O2 Saturation 100 H ABG Base Excess -1 Oxygen Liter Flow 100 FiO2 30 Sodium Potassium Chloride Carbon Dioxide Anion Gap BUN Creatinine Estim Creat Clear Calc eGFR BUN/Creatinine Ratio Glucose Calculated Osmolality Calcium Corrected Calcium Phosphorus Magnesium Ferritin Total Bilirubin AST ALT Alkaline Phosphatase Total Protein Albumin Globulin Albumin/Globulin Ratio Misc Test Result Crossmatch Assessment & Plan Additional Assessment Additional Assessment: In brief this is a 64-year-old male admitted to the ICU for septic shock a/p HAIR S[employer] M[employer]ER Encephalopathy-likely both related to sepsis and underlying metabolic issues. Patient's baseline is suboptimal at best. - Does not appear to be in active pain therefore we will hold his fentanyl - Likely secondary to his worsening hypernatremia - pts Na improving today however no improvement in pts mentation CV Shock-distributive and felt to be underlying sepsis though cultures have all been negative, continued antibiotics - Currently resolved and off of Levophed - Continue midodrine - All cultures are negative to date Resp Acute hypoxic respiratory failure -currently intubated on mechanical ventilation, follow-up chest x-ray and ABG -Some respiratory alkalosis noted on ABG therefore rate decreased on the vent -Unable to wean further due to mentation - no change aspiration pneumonia-continue current antibiotics and follow-up on cultures Pleural effusion-diuresis as able, will evaluate if large enough for thoracentesis Renal Acute on chronic kidney disease-nephrology recommendations appreciated -Monitor I's and O's Anasarca- pts Na is improved - can begin ongoing diuresis Hypernatremia-will provide free water - improving Hypophosphatemia-secondary acute kidney injury GI GI prophylaxis-PPI Nutrition-tube feeds Transaminitis- felt to be secondary to his shock. - Now resolved Endo Stable Heme Anemia-no active bleeding noted -Did receive a unit of PRBCs for hemoglobin of 5.8 February 04 -Received additional unit of PRBC today for hemoglobin of 6 -No gross bleeding noted however has not received sufficient volume to think that this is hemodilutional. Thrombocytopenia-in the setting of sepsis - No active bleeding, no need for transfusion DVT prophylaxis-heparin 5000 every 8 ID Sepsis-meets SIRS criteria with multiple possible sources. On antibiotics. It is noted that no cultures are positive but the patient has been on antibiotics for several weeks at this point in time. Case discussed with ICU team, There has been no significant change in the patient's overall status and he remains much the same Today family has decided to proceed with comfort care, comfort orders will be placed and we will begin to transition Labs imaging and records reviewed Approximately 38 critical care was required evaluation, exam, review, intervention, discussion formulation of plan of care plus critically ill patient with shock and acute respiratory failure who is at high risk for further and ongoing decompensation Provider Notation Provider Notation: Although this document has been carefully reviewed, there may still be some phonetic and other typographical errors. These errors are purely grammatical due to imperfections in the software program and should not be construed in any way to compromise the substance of the patient's medical care during this visit. Thank you for the opportunity and privilege in assisting you with this patient's care and management.
[2025-02-07] MEDS: Norepinephrine/NS 16mg/250ml 16 MG/250 ML BAG 4.176 MG IV (14:09)
[2025-02-07] MEDS: LORazepam 2 MG/ML VIAL 1 MG IVP (16:13)
--- NOTE | 2025-02-07 16:13 | PC.SS ---
MUSIC PASTOR informed by ICU resident that patient will be transitioned to comfort care measures.
[2025-02-07] MEDS: MORPHINE SULF INJ 4 MG/ML VIAL IVP (16:14)
[2025-02-07] MEDS: Morphine IV Drip 100mg/100ml 100 ML IV (16:15)
--- NOTE | 2025-02-07 16:33 | PC.NURSE ---
Donor Network contacted at 1130, OPA # [phone], per Donor network patient was a possible candidate for donation. Since pt was not a registered donor, donor network reached out to to see of she would like to follow through with donation. agreed to follow through, but at around 1615 donor network called back and said pt was not a candidate for donation. was made aware of situation by donor network and wanted comfort measures restarted
--- NOTE | 2025-02-07 17:20 | ESPR_ITS ---
<Statement entered by Giuliano Gifford MD - 02/07/25 20:40> Note reviewed and agree with care plan as documented. Please refer to the note below for further details. Plan discussed with attending physician Dr. Mia Gifford MD PGY-2 Internal Medicine Documentation for date of: 02/07/25 Subjective Subjective Interval history: Agustin Schrader 64M with history of atrial fibrillation (was previously on Eliquis), CAD status post multiple stents, CVA, wheelchair-bound, CKD, Castorena's esophagus, esophageal ulcers with past upper GI bleed, and chronic osteomyelitis of the lower thoracic spine who presented to [facility] ED on 02/02 from [facility] for evaluation of hypotension and sepsis, which progressed to septic shock. The patient was admitted to the ICU for management of shock requiring vasopressors. Overnight, the patient decompensated and was noted to be aspirating. His mental status continued to decline, and he was subsequently intubated for airway protection. Sedation was initiated with propofol and fentanyl. Telemetry revealed intermittent pauses and episodes of tachy-dory arrhythmia, prompting discontinuation of propofol. Chest X-ray demonstrated significant worsening of right-sided infiltrate, consistent with aspiration pneumonia. Manage with antibiotics regimens. The patient was evaluated by nephrology and determined not to be a candidate for dialysis. He was on vasopressor support. Patient is extubated on 02/07/25. After the ICU team had a goals of care discussion with the family it was decided to transition the patient to comfort care, hence patient downgraded for MedSur for comfort measures. Exam Vital Signs Temp Pulse Resp BP Pulse Ox O2 Del Method O2 Flow Rate 97.2 F 63 16 145/66 H 100 Room Air 30 02/07/25 08:00 02/07/25 17:00 02/06/25 08:07 02/07/25 17:00 02/07/25 17:00 02/03/25 16:01 02/06/25 06:17 FiO2 30 02/07/25 16:00 Narrative Exam GENERAL: no acute distress, intubated, and later extubated HEENT: Head AT/ NC. 7.[address], taped. and later removed during extubation. Mucous membranes dry. PERRL NECK: Supple, in the extended position, no lymphadenopathy, no carotid bruits. CARDIOVASCULAR: RRR. Normal S1/S2, No m/r/g. significant edema of the upper and lower extremities, diffuse, ansiarca, to the elbows and feet with 4+ pitting edema, and 2 +in the forearms. unable to appreciate pedal pulses 2/2 significant edema RESPIRATORY: On Ventilator PEEP 5, [id number], TV 450, RR 16, On assist control, D iminished breath sounds on the R lung benitez, with crackles noted in the mid to lower lung benitez, patient was extubated at 1700hrs GASTROINTESTINAL: Abdomen soft, non tender no palpable masses. Bowel sounds present MUSCULOSKELETAL:? No cyanosis or edema, no visible joint swelling., chronic ulcer at the t11 level beefy red, see wound care note stage 4 and dusky, surrounding tissue is dark purple and red. NEUROLOGICAL: patient now d PSYCHIATRIC: Not assessed. SKIN: No jaundice, healing excoriations noted on the BUE, most prominent on the R shoulder. blanching macular rash noted on the abdomen, poor skin turgor, and dry and peeling skin noted on feet and hands, onychomycosis of the great toes noted. Objective Labs 02/07/25 05:00 02/07/25 05:00 Labs: Laboratory Results - last 24 hr 02/04/25 02/06/25 02/07/25 00:10 18:00 00:22 WBC RBC Hgb Hct MCV MCH MCHC RDW Std Deviation Plt Count Neut % (Auto) Lymph % (Auto) [place] % (Auto) Eos % (Auto) Baso % (Auto) Neut # (Auto) Lymph # (Auto) [place] # (Auto) Eos # (Auto) Baso # (Auto) Immature Gran # (Auto) Absolute Nucleated RBC Immature Gran % Nucleated RBC % Puncture Site ABG pH ABG pCO2 ABG pO2 ABG HCO3 ABG O2 Saturation ABG Base Excess Oxygen Liter Flow FiO2 Sodium 156 H 155 H Potassium Chloride Carbon Dioxide Anion Gap BUN Creatinine Estim Creat Clear Calc eGFR BUN/Creatinine Ratio Glucose Calculated Osmolality Calcium Corrected Calcium Phosphorus Magnesium Total Bilirubin AST ALT Alkaline Phosphatase Total Protein Albumin Globulin Albumin/Globulin Ratio Misc Test Result Crossmatch See Detail 02/07/25 02/07/25 05:00 05:12 WBC 4.8 RBC 2.68 L Hgb 7.6 L Hct 23.1 L MCV 86 MCH 28.4 MCHC 32.9 RDW Std Deviation 61.7 H Plt Count 46 L Neut % (Auto) 59 Lymph % (Auto) 14 [place] % (Auto) 6 Eos % (Auto) 20 H Baso % (Auto) 0 Neut # (Auto) 2.8 Lymph # (Auto) 0.7 L [place] # (Auto) 0.3 Eos # (Auto) 1.0 H Baso # (Auto) 0.0 Immature Gran # (Auto) 0.08 H Absolute Nucleated RBC 0.02 H Immature Gran % 2 H Nucleated RBC % 0 Puncture Site Arterial Line ABG pH 7.42 ABG pCO2 36 ABG pO2 134 H ABG HCO3 23 ABG O2 Saturation 100 H ABG Base Excess -1 Oxygen Liter Flow 100 FiO2 30 Sodium 153 H Potassium 4.0 Chloride 117 H Carbon Dioxide 23.4 Anion Gap 13 BUN 52 H Creatinine 4.2 H* Estim Creat Clear Calc 19.7 L eGFR 15 L BUN/Creatinine Ratio 12 Glucose 88 Calculated Osmolality 316 H Calcium 8.4 Corrected Calcium 9.3 Phosphorus 4.9 Magnesium 1.8 Total Bilirubin 0.7 AST 29 ALT 30 Alkaline Phosphatase 169 H Total Protein 4.7 L Albumin 2.9 L Globulin 1.8 L Albumin/Globulin Ratio 1.6 Misc Test Result Platelets confirmed Crossmatch ABG Interpretation ABG results: 02/02/25 02/03/25 02/03/25 19:07 11:09 23:50 ABG pH 7.46 H ABG pCO2 26 L ABG pO2 64 L ABG HCO3 19 L ABG O2 Saturation 95 ABG Base Excess -5 L VBG pH 7.38 7.40 VBG pCO2 30 L 23 L VBG pO2 65 H 81 H VBG Base Excess -7 L -10 L 02/04/25 02/05/25 02/05/25 08:40 00:47 01:25 ABG pH 7.20 L D 7.27 L ABG pCO2 58 H D 46 D ABG pO2 124 H D 358 H D ABG HCO3 22 21 ABG O2 Saturation 98 100 H ABG Base Excess -6 L -6 L VBG pH 7.47 VBG pCO2 27 L VBG pO2 169 H D VBG Base Excess -4 L 02/05/25 02/05/25 02/06/25 04:36 08:10 04:19 ABG pH 7.45 D 7.39 7.47 H ABG pCO2 29 L D 35 32 ABG pO2 333 H D 126 H D 147 H D ABG HCO3 20 21 23 ABG O2 Saturation 100 H 99 H 100 H ABG Base Excess -3 -4 L -1 VBG pH 7.49 VBG pCO2 31 L VBG pO2 161 H VBG Base Excess 0 02/07/25 05:12 ABG pH 7.42 ABG pCO2 36 ABG pO2 134 H ABG HCO3 23 ABG O2 Saturation 100 H ABG Base Excess -1 VBG pH VBG pCO2 VBG pO2 VBG Base Excess Quality Measures Quality Measures VTE prophylaxis and sepsis Current suspected stage: ruled out Possible source: pulmonary, genitourinary and skin/soft tissue Blood cultures ordered: yes Antibiotic ordered: No Assessment & Plan Assessment Current Active Medications: Generic Name Dose Route Start Last Admin Trade Name Freq PRN Reason Stop Dose Admin Artificial Tears 1 drop 02/07/25 12:00 Artificial Tears 225 Drop/15 Ml Btl BOTH EYES 03/09/25 11:59 Q4HR PRN Dry eyes Fentanyl Citrate 2,500 mcg in 250 mls @ 2.5 mls/hr 02/06/25 09:25 Sublimaze Inj 2,500 Mcg/250 Ml Bag IV 02/10/25 01:04 .Q24H PRN PER PROTOCOL Protocol 25 MCG/HR Morphine Sulfate 100 mls @ 1 mls/hr 02/07/25 12:00 02/07/25 16:15 Morphine Sulfate Iv Drip 100mg/100ml IV 02/12/25 11:59 1 mg/hr .Q24H PRN 1 mls/hr PAIN (COMFORT CARE) Administration Protocol 1 MG/HR Lorazepam 1 mg 02/07/25 17:10 Lorazepam 2 Mg/Ml Vial IVP 02/12/25 16:43 Q1H PRN ANXIETY Protocol Ondansetron HCl 4 mg 02/07/25 18:00 Ondansetron Odt 4 Mg Tabrap PO 03/09/25 17:59 Q6HR HANNAH Scopolamine 1 mg 02/07/25 17:15 Scopolamine 1 Mg Tdsy TOP 03/09/25 17:14 Q3D HANNAH Plan Patient is a 64-year-old male with history of atrial fibrillation (was previously on Eliquis), CAD status post multiple stents, CVA, wheelchair-bound, CKD, Castorena's esophagus, esophageal ulcers with past upper GI bleed, and chronic osteomyelitis of the lower thoracic spine who presented to [facility] ED on 02/02 from [facility] for altered mental status. The patient was admitted to the ICU for management of shock requiring vasopressors. Code status changed to [id number] off pressers. Patient was contacted by organ donation team, organs are not viable for donation. Patient was extubated 02/07 and after extensive conversation of goals of care between ICU team and , comfort measures was initiated for the patient. Patient placed on comfort care measures as of 02/07, hence all treatments will be stop except : for morphine drip prn, activan 1mg prn, zofran 4mg and scopolamine patch. #Acute encephalopathy #Bilateral subdural hygromas, chronic #Shock- resolved DDx: Metabolic derangement, distributive shock - CT head with stable chronic subdural hygromas unlikely contributing to patient current condition. EEG with no epileptiform discharges. WBC within normal limits, CTM. CT head 02/02 shows bilateral chronic subdural hygromas with mild mass effect upon the right lateral ventricle system with shift of frontal horns to the left by 3 mm - Comfort care #Aspiration Pneumonia vs Pneumonitis #History of chronic osteomyelitis T12-L2 #History of Enterococcus faecalis in urine - 02/05 CXR with R lung infiltrates and diffuse R lung PNA, compared xray to pre intubation which showed clear R Lung benitez with significant L lung pna. and vascular congestion Was On IV Doxy (02/04-02/07), Cefepime (02/02?02/05), Zosyn 3.375 gm q6hr (02/05- 02/07) - Comfort care #Bilateral pleural effusions (L>R) with compressive atelectasis As noted on CT chest/abdomen/pelvis taken 02/02 Patient breathing comfortably on room air without increased work of breathing on admission - Comfort care #Hypothermia #CHF exacerbation #HFpEF (55-60% EF 12/2024) #Mobitz Type I Wenkebach #Atrial fibrillation #Hx CAD with stents #Acute hypoxic Respirtory failure #Respiratory Alkalosis #Pulmonary Edema #Bilateral pleural effusions (L>R) with compressive atelectasis #History of Castorena's esophagus #History of esophageal ulcers with upper GI bleed- no active bleeding # Transaminitis # ?Primary hepatocellular disease #Nutrition #Persistent Hypoglycemia #ARIA on CKD IV #CKD stage IV (GFR 20) #Lactic acidosis #Hyperosmolar hypernatremia - improved #Hypochloremia - stable, persists #Hyperphosphatemia (improvng) #Normal anion gap metabolic acidosis- resolvng #RTA #Bilateral renal cysts #Atrophic left kidney #Indwelling tenorio catheter- chronic #Pancytopenia #Acute on chronic normocytic anemia #Acute on Chronic Thrombocytopenia #Stage IV ulcer, lower back, 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 Adair and discuss with senior resident Dr. Brian Gifford PGY-2 Nisha Ramirez MD PGY-1, Internal Medicine Please note: this document was transcribed using voice recognition technology; minor inaccuracies may be present. Attending Provider Attestation/Addendum I, Suzanna Bellamy, , attest that I was physically present for the umanzor portions of the service and evaluated the patient with the resident and I reviewed and discussed the case with the resident and agree with the resident's findings and plans of care as documented above Patient is a 64-year-old male with past medical history of A-fib, CAD, CVA, CKD, Castorena's esophagus, GI bleed, chronic osteomyelitis of the thoracic lower spine who is brought to the ED due to altered mental status. Patient was found to be in shock requiring vasopressors. Patient was also found to have a small stable subdural hemorrhage. Patient was also noted to have a hypoglycemic episode with hypotension and fever on the day of arrival. Patient was subsequently admitted to the ICU due to septic shock likely secondary to UTI versus aspiration pneumonia. Patient was also started on diuretics due to acute HFpEF exacerbation versus out any improvement of renal function. Patient was also deemed a poor candidate for hemodialysis per nephro. Patient's has decided to start patient on comfort measures due to lack of improvement. Patient has been extubated and started back on morphine drip. Hospitalist service will take over as patient has been downgraded from ICU.
--- NOTE | 2025-02-07 18:17 | PC.NURSE ---
Patient arrived to unit at this time with morphine drip, 1mg/hr. Patient appear to be comfortable with respiration rate of 12. Family at bedside.
[2025-02-07] MEDS: SCOPOLAMINE 1 MG TDSY TOP (21:49)
--- NOTE | 2025-02-08 08:47 | ESPR_ITS ---
Documentation for date of: 02/08/25 Subjective Subjective Interval history: History of present illness: Agustin Schrader 64M with history of atrial fibrillation (was previously on Eliquis), CAD status post multiple stents, CVA, wheelchair-bound, CKD, Castorena's esophagus, esophageal ulcers with past upper GI bleed, and chronic osteomyelitis of the lower thoracic spine who presented to [facility] ED on 02/02 from [facility] for altered mental status. The patient was admitted to the ICU for management of shock requiring vasopressors. This patient is very well-known to [facility] and was recently discharged on 01/27 after presenting very similarly. At that time, the patient was admitted to ICU for management of shock requiring vasopressors, was found to have small and stable subdural hemorrhage which prompted neurology to recommend holding the patient's anticoagulation, and discharged on his home regimen of doxycycline and Keflex which was prescribed until per ID consultation from her previous hospitalization for the patient's chronic osteomyelitis. It is unclear how much mental capabilities the patient recovered as the patient's baseline and resolved the patient having limited vocabulary, but is able to eat on his own. The patient remained stable for a few days until around 01/31 when the noticed that the patient became much less responsive and would not eat his food. On 02/02 in the morning, nursing staff noted that the patient had hypoglycemia with a blood glucose of 55, hypotension, and a fever of 102 ?F. According to the patient's , the patient was seemingly tensed up and appeared to be silently screaming the night before. The believes that the patient is in pain and is trying to communicate, but is unable to. Additionally, the patient's notes that the patient's arms became swollen, but the swelling has since decreased with some residual swelling in the patient's right arm. Of note, the patient was made limited code during the previous hospitalization, but the patient's has revoked that and made the patient full code for this hospitalization. The patient's has signed a POLST form reflecting this decision. The patient was unable to provide any history as he was unresponsive and seemingly staring off into space with random jerking motions. Nephrology consulted for ARIA on CKD IV. 02/04/2025: Patient seen and examined at bedside in ICU. Patient is not arousable to verbal stimulation, grimacing and groaning with sternal rub, sleepy. Patient on high flow 40L and levophed. Nephrology consulted for ARIA on CKD 4, cleared from nephrology to obtain low ionic contrast MRI spine. Patient is clinically hypervolemic and fluid overloaded, recommend against further IVF. Given clinical picture, patient is not a candidate for hemodialysis as he has significant comorbidities such as hx of osteomyelitis and frequent episodes of sepsis requiring hospitalization. 02/05/25: Patient seen and examined at bedside in ICU. Patient was intubated overnight due to acute hypoxic respiratory failure. Continues to be on Levophed, now also on propofol. Had good urine output s/p IV Bumex 1 mg x1 overnight. Recommend to schedule IV Bumex 2 mg daily with IV albumin 25g BID. Sodium increased to 158, recommend 100 mL/hr free water flushes with tube feeds (started overnight). Creatinine worsening however given poor prognosis, patient is not a candidate for HD. As noted yesterday, patient is cleared for low ionic contrast MRI spine. 02/06/25: Patient seen and examined at bedside in ICU. Intubated and sedated on propofol. Levophed increased overnight. Maintaining good urine output s/p IV Bumex 1 mg x5 yesterday. Sodium increased to 162. Free water flushes not started until 5AM today. Based on estimated free water deficit of 3.9L, recommend increasing to 165 mL free water flushes with feeds. Creatinine 3.8, continues to increase. GFR 17. Continue IV albumin and IV Bumex 2mg daily. MRI completed yesterday. ICU team spoke to family yesterday, code status changed to DNR. Will speak to extended family today about transitioning to comfort care. 02/07/25: Patient seen and examined at bedside in ICU. Intubated and sedated on propofol, off Levophed. Continues to appear hypervolemic on exam. Maintaining good urine output. Sodium improved to 153. Continue 150 cc free water flushes with tube feeds. Creatinine continue to worsen, 4.2 today. Per primary team, family agreeable to transitioning patient to comfort care. 02/08/25: Downgraded from ICU. Nephrology will be signing off as patient has been transitioned to comfort care. Exam Vital Signs Temp Pulse Resp BP Pulse Ox O2 Del Method O2 Flow Rate 97.2 F 63 16 145/66 H 100 Room Air 30 02/07/25 08:00 02/07/25 17:00 02/06/25 08:07 02/07/25 17:00 02/07/25 17:00 02/03/25 16:01 02/06/25 06:17 FiO2 30 02/07/25 16:00 Narrative Exam Physical Exam General: Extubated. HEENT: Normocephalic, atraumatic, mucous membranes dry. Heart: Irregular rate and rhythm, normal S1 and S2, no murmurs. Lungs: Decreased breath sounds in right lower lobe. Abdomen: Soft, nondistended, positive bowel sounds. Neurologic: Unable to assess due to sedation. Extremities: Non pitting edema of bilateral upper and lower extremities. Skin: No rash or ecchymoses. Dry flaky skin with scattered scabs, mostly around upper extremities. Objective Labs 02/07/25 05:00 02/07/25 05:00 Labs: Laboratory Results - last 24 hr 02/07/25 05:00 Misc Test Result Platelets confirmed ABG Interpretation ABG results: 02/02/25 02/03/25 02/03/25 19:07 11:09 23:50 ABG pH 7.46 H ABG pCO2 26 L ABG pO2 64 L ABG HCO3 19 L ABG O2 Saturation 95 ABG Base Excess -5 L VBG pH 7.38 7.40 VBG pCO2 30 L 23 L VBG pO2 65 H 81 H VBG Base Excess -7 L -10 L 02/04/25 02/05/25 02/05/25 08:40 00:47 01:25 ABG pH 7.20 L D 7.27 L ABG pCO2 58 H D 46 D ABG pO2 124 H D 358 H D ABG HCO3 22 21 ABG O2 Saturation 98 100 H ABG Base Excess -6 L -6 L VBG pH 7.47 VBG pCO2 27 L VBG pO2 169 H D VBG Base Excess -4 L 02/05/25 02/05/25 02/06/25 04:36 08:10 04:19 ABG pH 7.45 D 7.39 7.47 H ABG pCO2 29 L D 35 32 ABG pO2 333 H D 126 H D 147 H D ABG HCO3 20 21 23 ABG O2 Saturation 100 H 99 H 100 H ABG Base Excess -3 -4 L -1 VBG pH 7.49 VBG pCO2 31 L VBG pO2 161 H VBG Base Excess 0 02/07/25 05:12 ABG pH 7.42 ABG pCO2 36 ABG pO2 134 H ABG HCO3 23 ABG O2 Saturation 100 H ABG Base Excess -1 VBG pH VBG pCO2 VBG pO2 VBG Base Excess Quality Measures Quality Measures VTE prophylaxis and sepsis Current suspected stage: ruled out Possible source: pulmonary, genitourinary and skin/soft tissue Blood cultures ordered: yes Antibiotic ordered: No Assessment & Plan Assessment Current Active Medications: Generic Name Dose Route Start Last Admin Trade Name Freq PRN Reason Stop Dose Admin Artificial Tears 1 drop 02/07/25 12:00 Artificial Tears 225 Drop/15 Ml Btl BOTH EYES 03/09/25 11:59 Q4HR PRN Dry eyes Diphenhydramine HCl 25 mg 02/07/25 18:28 Diphenhydramine Inj 50 Mg/Ml Vial IVP 03/09/25 18:27 Q6HR PRN ITCHING Morphine Sulfate 100 mls @ 1 mls/hr 02/07/25 12:00 02/07/25 16:15 Morphine Sulfate Iv Drip 100mg/100ml IV 02/12/25 11:59 1 mg/hr .Q24H PRN 1 mls/hr PAIN (COMFORT CARE) Administration Protocol 1 MG/HR Lorazepam 1 mg 02/07/25 17:10 Lorazepam 2 Mg/Ml Vial IVP 02/12/25 16:43 Q1H PRN ANXIETY Protocol Ondansetron HCl 4 mg 02/07/25 21:47 Ondansetron Inj 2 Mg/Ml Inj 2 Ml IVP 03/09/25 21:46 Q6HR PRN NAUSEA OR VOMITING Protocol Scopolamine 1 mg 02/07/25 17:15 02/07/25 21:49 Scopolamine 1 Mg Tdsy TOP 03/09/25 17:14 1 mg Q3D HANNAH Administration Plan Patient is a 64 year old male with past medical history of atrial fibrillation (was previously on Eliquis), CAD status post multiple stents, CVA, wheelchair- bound, CKD, Castorena's esophagus, esophageal ulcers with past upper GI bleed, and chronic osteomyelitis of the lower thoracic spine who presented to [facility] ED on 02/02 from [facility] for altered mental status. The patient was admitted to the ICU for management of shock requiring vasopressors. Now on comfort care. #Comfort care Per primary team, code status has been changed to DNR 02/05 after discussion with patient . Had another [facility] discussion with extended family. Given worsening prognosis, decision was made to transition patient to comfort care 02/07/25. #ARIA on CKD IV (worsening) #Bilateral renal cysts #Atrophic left kidney - No active treatment as patient has been transitioned to comfort care #Hypernatremia - No active treatment as patient has been transitioned to comfort care #Shock #Hypothermia #Acute encephalopathy #Bilateral subdural hygromas, chronic #Atrial fibrillation #Elevated troponins (resolved) #NSTEMI type II (resolved) #Bilateral pleural effusions (L>R) with compressive atelectasis #History of Castorena's esophagus #History of esophageal ulcers with upper GI bleed # Transaminitis (improving) # ?Primary hepatocellular disease #Lactic acidosis #Indwelling tenorio catheter #Pancytopenia (improving) #Electrolyte abnormalities #Hyperkalemia #Hyperchloremia #Normal anion gap metabolic acidosis #HAGMA #RTA #History of Enterococcus faecalis in urine #History of chronic osteomyelitis T12-L2 Plan: - Management per ICU team Thank you for the consultation and allowing participation in patient's care. Patient plan of care was discussed with the attending physician, Dr. Summers. Lashanda Torres DO, PGY-1 Attending Provider Attestation/Addendum Patient currently seen and examined with resident physician Dr. Torres. Note reviewed, agree with findings and recommendations. Patient currently seen in medical floor under comfort care . Renal will sign off. Thank you for allowing us to participate in the care of Mr. Schrader
--- NOTE | 2025-02-08 10:32 | ESPR_ITS ---
<Statement entered by Giuliano Gifford MD - 02/08/25 12:27> Note reviewed and agree with care plan as documented. Please refer to the note below for further details. Plan discussed with attending physician Dr. Mia Gifford MD PGY-2 Internal Medicine Documentation for date of: 02/08/25 Subjective Subjective Interval history: No acute event overnights. Patient is on comfort care. Exam Vital Signs Temp Pulse Resp BP Pulse Ox O2 Del Method O2 Flow Rate 97.2 F 63 16 145/66 H 100 Room Air 30 02/07/25 08:00 02/07/25 17:00 02/06/25 08:07 02/07/25 17:00 02/07/25 17:00 02/03/25 16:01 02/06/25 06:17 FiO2 30 02/07/25 16:00 Narrative Exam GENERAL: no acute distress, intubated, and later extubated HEENT: Head AT/ NC. 7.[address], taped. and later removed during extubation. Mucous membranes dry. PERRL NECK: Supple, in the extended position, no lymphadenopathy, no carotid bruits. CARDIOVASCULAR: RRR. Normal S1/S2, No m/r/g. significant edema of the upper and lower extremities, diffuse, ansiarca, to the elbows and feet with 4+ pitting edema, and 2 +in the forearms. unable to appreciate pedal pulses 2/2 significant edema RESPIRATORY: On Ventilator PEEP 5, [id number], TV 450, RR 16, On assist control, Diminished breath sounds on the R lung benitez, with crackles noted in the mid to lower lung benitez, patient was extubated at 1700hrs GASTROINTESTINAL: Abdomen soft, non tender no palpable masses. Bowel sounds present MUSCULOSKELETAL:? No cyanosis or edema, no visible joint swelling., chronic ulcer at the t11 level beefy red, see wound care note stage 4 and dusky, surrounding tissue is dark purple and red. NEUROLOGICAL: patient now d PSYCHIATRIC: Not assessed. SKIN: No jaundice, healing excoriations noted on the BUE, most prominent on the R shoulder. blanching macular rash noted on the abdomen, poor skin turgor, and dry and peeling skin noted on feet and hands, onychomycosis of the great toes noted. Objective Labs 02/07/25 05:00 02/07/25 05:00 ABG Interpretation ABG results: 02/02/25 02/03/25 02/03/25 19:07 11:09 23:50 ABG pH 7.46 H ABG pCO2 26 L ABG pO2 64 L ABG HCO3 19 L ABG O2 Saturation 95 ABG Base Excess -5 L VBG pH 7.38 7.40 VBG pCO2 30 L 23 L VBG pO2 65 H 81 H VBG Base Excess -7 L -10 L 02/04/25 02/05/25 02/05/25 08:40 00:47 01:25 ABG pH 7.20 L D 7.27 L ABG pCO2 58 H D 46 D ABG pO2 124 H D 358 H D ABG HCO3 22 21 ABG O2 Saturation 98 100 H ABG Base Excess -6 L -6 L VBG pH 7.47 VBG pCO2 27 L VBG pO2 169 H D VBG Base Excess -4 L 02/05/25 02/05/25 02/06/25 04:36 08:10 04:19 ABG pH 7.45 D 7.39 7.47 H ABG pCO2 29 L D 35 32 ABG pO2 333 H D 126 H D 147 H D ABG HCO3 20 21 23 ABG O2 Saturation 100 H 99 H 100 H ABG Base Excess -3 -4 L -1 VBG pH 7.49 VBG pCO2 31 L VBG pO2 161 H VBG Base Excess 0 02/07/25 05:12 ABG pH 7.42 ABG pCO2 36 ABG pO2 134 H ABG HCO3 23 ABG O2 Saturation 100 H ABG Base Excess -1 VBG pH VBG pCO2 VBG pO2 VBG Base Excess Quality Measures Quality Measures VTE prophylaxis and sepsis Current suspected stage: ruled out Possible source: pulmonary, genitourinary and skin/soft tissue Blood cultures ordered: yes Antibiotic ordered: No Assessment & Plan Assessment Current Active Medications: Generic Name Dose Route Start Last Admin Trade Name Freq PRN Reason Stop Dose Admin Artificial Tears 1 drop 02/07/25 12:00 Artificial Tears 225 Drop/15 Ml Btl BOTH EYES 03/09/25 11:59 Q4HR PRN Dry eyes Diphenhydramine HCl 25 mg 02/07/25 18:28 Diphenhydramine Inj 50 Mg/Ml Vial IVP 03/09/25 18:27 Q6HR PRN ITCHING Morphine Sulfate 100 mls @ 1 mls/hr 02/07/25 12:00 02/07/25 16:15 Morphine Sulfate Iv Drip 100mg/100ml IV 02/12/25 11:59 1 mg/hr .Q24H PRN 1 mls/hr PAIN (COMFORT CARE) Administration Protocol 1 MG/HR Lorazepam 1 mg 02/07/25 17:10 Lorazepam 2 Mg/Ml Vial IVP 02/12/25 16:43 Q1H PRN ANXIETY Protocol Ondansetron HCl 4 mg 02/07/25 21:47 Ondansetron Inj 2 Mg/Ml Inj 2 Ml IVP 03/09/25 21:46 Q6HR PRN NAUSEA OR VOMITING Protocol Scopolamine 1 mg 02/07/25 17:15 02/07/25 21:49 Scopolamine 1 Mg Tdsy TOP 03/09/25 17:14 1 mg Q3D HANNAH Administration Plan Patient is a 64-year-old male with history of atrial fibrillation (was previously on Eliquis), CAD status post multiple stents, CVA, wheelchair-bound, CKD, Castorena's esophagus, esophageal ulcers with past upper GI bleed, and chronic osteomyelitis of the lower thoracic spine who presented to [facility] ED on 02/02 from [facility] for altered mental status. The patient was admitted to the ICU for management of shock requiring vasopressors. Code status changed to DNR.02/06 off pressers. Patient was contacted by organ donation team, organs are not viable for donation. Patient was extubated 02/07 and after extensive conversation of goals of care between ICU team and , comfort measures was initiated for the patient. Patient placed on comfort care measures as of 02/07, hence all treatments will be stop except : for morphine drip prn, activan 1mg prn, zofran 4mg and scopolamine patch. #Acute encephalopathy #Bilateral subdural hygromas, chronic #Shock- resolved DDx: Metabolic derangement, distributive shock - CT head with stable chronic subdural hygromas unlikely contributing to patient current condition. EEG with no epileptiform discharges. WBC within normal limits, CTM. CT head 02/02 shows bilateral chronic subdural hygromas with mild mass effect upon the right lateral ventricle system with shift of frontal horns to the left by 3 mm - Comfort care #Aspiration Pneumonia vs Pneumonitis #History of chronic osteomyelitis T12-L2 #History of Enterococcus faecalis in urine - 02/05 CXR with R lung infiltrates and diffuse R lung PNA, compared xray to pre intubation which showed clear R Lung benitez with significant L lung pna. and vascular congestion Was On IV Doxy (02/04-02/07), Cefepime (02/02?02/05), Zosyn 3.375 gm q6hr (02/05- 02/07) - Comfort care #Bilateral pleural effusions (L>R) with compressive atelectasis As noted on CT chest/abdomen/pelvis taken 02/02 Patient breathing comfortably on room air without increased work of breathing on admission - Comfort care #Hypothermia #CHF exacerbation #HFpEF (55-60% EF 12/2024) #Mobitz Type I Wenkebach #Atrial fibrillation #Hx CAD with stents #Acute hypoxic Respirtory failure #Respiratory Alkalosis #Pulmonary Edema #Bilateral pleural effusions (L>R) with compressive atelectasis #History of Castorena's esophagus #History of esophageal ulcers with upper GI bleed- no active bleeding # Transaminitis # ?Primary hepatocellular disease #Nutrition #Persistent Hypoglycemia #ARIA on CKD IV #CKD stage IV (GFR 20) #Lactic acidosis #Hyperosmolar hypernatremia - improved #Hypochloremia - stable, persists #Hyperphosphatemia (improvng) #Normal anion gap metabolic acidosis- resolvng #RTA #Bilateral renal cysts #Atrophic left kidney #Indwelling tenorio catheter- chronic #Pancytopenia #Acute on chronic normocytic anemia #Acute on Chronic Thrombocytopenia #Stage IV ulcer, lower back, 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 Adair and discuss with senior resident Dr. Brian Gifford PGY-2 Nisha Ramirez MD PGY-1, Internal Medicine Please note: this document was transcribed using voice recognition technology; minor inaccuracies may be present. Attending Provider Attestation/Addendum Pearl, Suzanna Bellamy, , attest that I was physically present for the umanzor portions of the service and evaluated the patient with the resident and I reviewed and discussed the case with the resident and agree with the resident's findings and plans of care as documented above Continue with comfort measures
--- NOTE | 2025-02-08 10:37 | PC.SS ---
follow up note: Patient is now on med/surg. Comfort measures
[2025-02-09 06:18] LABS: Renin Activity, Plasma* 0.86 ng/mL/h (0.25-5.82)
[2025-02-09 08:38] VITALS: RESP 4; TEMP 35.5
[2025-02-09 11:52] VITALS: RESP 5; TEMP 35.6
--- NOTE | 2025-02-09 14:15 | ESPR_ITS ---
<Statement entered by Giuliano Gifford MD - 02/09/25 16:31> Note reviewed and agree with care plan as documented. Please refer to the note below for further details. Plan discussed with attending physician Dr. Mia Gifford MD PGY-2 Internal Medicine Documentation for date of: 02/09/25 Subjective Subjective Interval history: No acute event overnights. Patient is on comfort care. Spoke to family at beside. Exam Vital Signs Temp Pulse Resp BP Pulse Ox O2 Del Method O2 Flow Rate 96.0 F L 63 5 L 145/66 H 100 Room Air 30 02/09/25 11:52 02/07/25 17:00 02/09/25 11:52 02/07/25 17:00 02/07/25 17:00 02/03/25 16:01 02/06/25 06:17 FiO2 30 02/07/25 16:00 Narrative Exam GENERAL: no acute distress, intubated, and later extubated HEENT: Head AT/ NC. 7.[address], taped. and later removed during extubation. Mucous membranes dry. PERRL NECK: Supple, in the extended position, no lymphadenopathy, no carotid bruits. CARDIOVASCULAR: RRR. Normal S1/S2, No m/r/g. significant edema of the upper and lower extremities, diffuse, ansiarca, to the elbows and feet with 4+ pitting edema, and 2 +in the forearms. unable to appreciate pedal pulses 2/2 significant edema RESPIRATORY: On Ventilator PEEP 5, [id number], TV 450, RR 16, On assist control, Diminished breath sounds on the R lung benitez, with crackles noted in the mid to lower lung benitez, patient was extubated at 1700hrs GASTROINTESTINAL: Abdomen soft, non tender no palpable masses. Bowel sounds present MUSCULOSKELETAL:? No cyanosis or edema, no visible joint swelling., chronic ulcer at the t11 level beefy red, see wound care note stage 4 and dusky, surrounding tissue is dark purple and red. NEUROLOGICAL: patient now d PSYCHIATRIC: Not assessed. SKIN: No jaundice, healing excoriations noted on the BUE, most prominent on the R shoulder. blanching macular rash noted on the abdomen, poor skin turgor, and dry and peeling skin noted on feet and hands, onychomycosis of the great toes noted. Objective Labs 02/07/25 05:00 02/07/25 05:00 Labs: Laboratory Results - last 24 hr 02/02/25 16:18 Renin Activity 0.86 ABG Interpretation ABG results: 02/02/25 02/03/25 02/03/25 19:07 11:09 23:50 ABG pH 7.46 H ABG pCO2 26 L ABG pO2 64 L ABG HCO3 19 L ABG O2 Saturation 95 ABG Base Excess -5 L VBG pH 7.38 7.40 VBG pCO2 30 L 23 L VBG pO2 65 H 81 H VBG Base Excess -7 L -10 L 02/04/25 02/05/25 02/05/25 08:40 00:47 01:25 ABG pH 7.20 L D 7.27 L ABG pCO2 58 H D 46 D ABG pO2 124 H D 358 H D ABG HCO3 22 21 ABG O2 Saturation 98 100 H ABG Base Excess -6 L -6 L VBG pH 7.47 VBG pCO2 27 L VBG pO2 169 H D VBG Base Excess -4 L 02/05/25 02/05/25 02/06/25 04:36 08:10 04:19 ABG pH 7.45 D 7.39 7.47 H ABG pCO2 29 L D 35 32 ABG pO2 333 H D 126 H D 147 H D ABG HCO3 20 21 23 ABG O2 Saturation 100 H 99 H 100 H ABG Base Excess -3 -4 L -1 VBG pH 7.49 VBG pCO2 31 L VBG pO2 161 H VBG Base Excess 0 02/07/25 05:12 ABG pH 7.42 ABG pCO2 36 ABG pO2 134 H ABG HCO3 23 ABG O2 Saturation 100 H ABG Base Excess -1 VBG pH VBG pCO2 VBG pO2 VBG Base Excess Quality Measures Quality Measures VTE prophylaxis and sepsis Current suspected stage: ruled out Possible source: pulmonary, genitourinary and skin/soft tissue Blood cultures ordered: yes Antibiotic ordered: No Assessment & Plan Assessment Current Active Medications: Generic Name Dose Route Start Last Admin Trade Name Freq PRN Reason Stop Dose Admin Artificial Tears 1 drop 02/07/25 12:00 Artificial Tears 225 Drop/15 Ml Btl BOTH EYES 03/09/25 11:59 Q4HR PRN Dry eyes Diphenhydramine HCl 25 mg 02/07/25 18:28 Diphenhydramine Inj 50 Mg/Ml Vial IVP 03/09/25 18:27 Q6HR PRN ITCHING Morphine Sulfate 100 mls @ 1 mls/hr 02/07/25 12:00 02/07/25 16:15 Morphine Sulfate Iv Drip 100mg/100ml IV 02/12/25 11:59 1 mg/hr .Q24H PRN 1 mls/hr PAIN (COMFORT CARE) Administration Protocol 1 MG/HR Lorazepam 1 mg 02/07/25 17:10 Lorazepam 2 Mg/Ml Vial IVP 02/12/25 16:43 Q1H PRN ANXIETY Protocol Ondansetron HCl 4 mg 02/07/25 21:47 Ondansetron Inj 2 Mg/Ml Inj 2 Ml IVP 03/09/25 21:46 Q6HR PRN NAUSEA OR VOMITING Protocol Scopolamine 1 mg 02/07/25 17:15 02/07/25 21:49 Scopolamine 1 Mg Tdsy TOP 03/09/25 17:14 1 mg Q3D HANNAH Administration Plan Patient is a 64-year-old male with history of atrial fibrillation (was previously on Eliquis), CAD status post multiple stents, CVA, wheelchair-bound, CKD, Castorena's esophagus, esophageal ulcers with past upper GI bleed, and chronic osteomyelitis of the lower thoracic spine who presented to [facility] ED on 02/02 from [facility] for altered mental status. The patient was admitted to the ICU for management of shock requiring vasopressors. Code status changed to DNR.02/06 off pressers. Patient was contacted by organ donation team, organs are not viable for donation. Patient was extubated 02/07 and after extensive conversation of goals of care between ICU team and , comfort measures was initiated for the patient. Patient placed on comfort care measures as of 02/07, hence all treatments will be stop except : for morphine drip prn, activan 1mg prn, zofran 4mg and scopolamine patch. #Acute encephalopathy #Bilateral subdural hygromas, chronic #Shock- resolved DDx: Metabolic derangement, distributive shock - CT head with stable chronic subdural hygromas unlikely contributing to patient current condition. EEG with no epileptiform discharges. WBC within normal limits, CTM. CT head 02/02 shows bilateral chronic subdural hygromas with mild mass effect upon the right lateral ventricle system with shift of frontal horns to the left by 3 mm - Comfort care #Aspiration Pneumonia vs Pneumonitis #History of chronic osteomyelitis T12-L2 #History of Enterococcus faecalis in urine - 02/05 CXR with R lung infiltrates and diffuse R lung PNA, compared xray to pre intubation which showed clear R Lung benitez with significant L lung pna. and vascular congestion Was On IV Doxy (02/04-02/07), Cefepime (02/02?02/05), Zosyn 3.375 gm q6hr (02/05- 02/07) - Comfort care #Bilateral pleural effusions (L>R) with compressive atelectasis As noted on CT chest/abdomen/pelvis taken 02/02 Patient breathing comfortably on room air without increased work of breathing on admission - Comfort care #Hypothermia #CHF exacerbation #HFpEF (55-60% EF 12/2024) #Mobitz Type I Wenkebach #Atrial fibrillation #Hx CAD with stents #Acute hypoxic Respirtory failure #Respiratory Alkalosis #Pulmonary Edema #Bilateral pleural effusions (L>R) with compressive atelectasis #History of Castorena's esophagus #History of esophageal ulcers with upper GI bleed- no active bleeding # Transaminitis # ?Primary hepatocellular disease #Nutrition #Persistent Hypoglycemia #ARIA on CKD IV #CKD stage IV (GFR 20) #Lactic acidosis #Hyperosmolar hypernatremia - improved #Hypochloremia - stable, persists #Hyperphosphatemia (improvng) #Normal anion gap metabolic acidosis- resolvng #RTA #Bilateral renal cysts #Atrophic left kidney #Indwelling tenorio catheter- chronic #Pancytopenia #Acute on chronic normocytic anemia #Acute on Chronic Thrombocytopenia #Stage IV ulcer, lower back, 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 Adair and discuss with senior resident Dr. Brian Gifford PGY-2 Nisha Ramirez MD PGY-1, Internal Medicine Please note: this document was transcribed using voice recognition technology; minor inaccuracies may be present. Attending Provider Attestation/Addendum I, Suzanna Bellamy, DO, attest that I was physically present for the umanzor portions of the service and evaluated the patient with the resident and I reviewed and discussed the case with the resident and agree with the resident's findings and plans of care as documented above Patient resting comfortably this AM, remains on comfort measures.
--- NOTE | 2025-02-09 14:52 | PC.SS ---
Follow up note: Pt is on comfort care.
[2025-02-09] MEDS: Morphine IV Drip 100mg/100ml 100 ML IV (18:13)
[2025-02-09 21:00] VITALS: PULSE 47; RESP 3
[2025-02-10] MEDS: MORPHINE SULF INJ 4 MG/ML VIAL 2 MG IVP (06:19)
[2025-02-10 08:00] VITALS: RESP 7; TEMP 35.8
--- NOTE | 2025-02-10 12:30 | ESPR_ITS ---
<Statement entered by Salima Ly MD - 02/10/25 15:06> Patient was seen at bedside. Lying in bed comfortably does not seem to be in distress. Morphine pump active. - Patient's plan and care discussed with my attending, Dr. Mia Ly MD Internal Medicine PGY-3 Documentation for date of: 02/10/25 Subjective Subjective Interval history: Overnight patient had episodes bradypneeas. He was started on morphine bolus. Will continue to monitor. Continue comfort care. Exam Vital Signs Temp Pulse Resp BP Pulse Ox O2 Del Method O2 Flow Rate 96.0 F L 47 L 3 L 145/66 H 100 Room Air 30 02/09/25 11:52 02/09/25 21:00 02/09/25 21:00 02/07/25 17:00 02/07/25 17:00 02/09/25 21:00 02/06/25 06:17 FiO2 30 02/07/25 16:00 Narrative Exam GENERAL: no acute distress, intubated, and later extubated HEENT: Head AT/ NC. 7.[address], taped. and later removed during extubation. Mucous membranes dry. PERRL NECK: Supple, in the extended position, no lymphadenopathy, no carotid bruits. CARDIOVASCULAR: RRR. Normal S1/S2, No m/r/g. significant edema of the upper and lower extremities, diffuse, ansiarca, to the elbows and feet with 4+ pitting edema, and 2 +in the forearms. unable to appreciate pedal pulses 2/2 significant edema RESPIRATORY: On Ventilator PEEP 5, [id number], TV 450, RR 16, On assist control, Diminished breath sounds on the R lung benitez, with crackles noted in the mid to lower lung benitez, patient was extubated at 1700hrs GASTROINTESTINAL: Abdomen soft, non tender no palpable masses. Bowel sounds present MUSCULOSKELETAL:? No cyanosis or edema, no visible joint swelling., chronic ulcer at the t11 level beefy red, see wound care note stage 4 and dusky, surrounding tissue is dark purple and red. NEUROLOGICAL: patient now d PSYCHIATRIC: Not assessed. SKIN: No jaundice, healing excoriations noted on the BUE, most prominent on the R shoulder. blanching macular rash noted on the abdomen, poor skin turgor, and dry and peeling skin noted on feet and hands, onychomycosis of the great toes noted. Objective Labs 02/07/25 05:00 02/07/25 05:00 ABG Interpretation ABG results: 02/02/25 02/03/25 02/03/25 19:07 11:09 23:50 ABG pH 7.46 H ABG pCO2 26 L ABG pO2 64 L ABG HCO3 19 L ABG O2 Saturation 95 ABG Base Excess -5 L VBG pH 7.38 7.40 VBG pCO2 30 L 23 L VBG pO2 65 H 81 H VBG Base Excess -7 L -10 L 02/04/25 02/05/25 02/05/25 08:40 00:47 01:25 ABG pH 7.20 L D 7.27 L ABG pCO2 58 H D 46 D ABG pO2 124 H D 358 H D ABG HCO3 22 21 ABG O2 Saturation 98 100 H ABG Base Excess -6 L -6 L VBG pH 7.47 VBG pCO2 27 L VBG pO2 169 H D VBG Base Excess -4 L 02/05/25 02/05/25 02/06/25 04:36 08:10 04:19 ABG pH 7.45 D 7.39 7.47 H ABG pCO2 29 L D 35 32 ABG pO2 333 H D 126 H D 147 H D ABG HCO3 20 21 23 ABG O2 Saturation 100 H 99 H 100 H ABG Base Excess -3 -4 L -1 VBG pH 7.49 VBG pCO2 31 L VBG pO2 161 H VBG Base Excess 0 02/07/25 05:12 ABG pH 7.42 ABG pCO2 36 ABG pO2 134 H ABG HCO3 23 ABG O2 Saturation 100 H ABG Base Excess -1 VBG pH VBG pCO2 VBG pO2 VBG Base Excess Quality Measures Quality Measures VTE prophylaxis and sepsis Current suspected stage: ruled out Possible source: pulmonary, genitourinary and skin/soft tissue Blood cultures ordered: yes Antibiotic ordered: No Assessment & Plan Assessment Current Active Medications: Generic Name Dose Route Start Last Admin Trade Name Freq PRN Reason Stop Dose Admin Artificial Tears 1 drop 02/07/25 12:00 Artificial Tears 225 Drop/15 Ml Btl BOTH EYES 03/09/25 11:59 Q4HR PRN Dry eyes Diphenhydramine HCl 25 mg 02/07/25 18:28 Diphenhydramine Inj 50 Mg/Ml Vial IVP 03/09/25 18:27 Q6HR PRN ITCHING Morphine Sulfate 100 mls @ 1 mls/hr 02/07/25 12:00 02/09/25 18:13 Morphine Sulfate Iv Drip 100mg/100ml IV 02/12/25 11:59 1 mg/hr .Q24H PRN 1 mls/hr PAIN (COMFORT CARE) Administration Protocol 1 MG/HR Lorazepam 1 mg 02/07/25 17:10 Lorazepam 2 Mg/Ml Vial IVP 02/12/25 16:43 Q1H PRN ANXIETY Protocol Morphine Sulfate 2 mg 02/10/25 05:01 02/10/25 06:19 Morphine Sulf Inj 4 Mg/Ml Vial IVP 02/15/25 05:00 2 mg Q30M PRN Administration PAIN SCALE 4-10(Mod-Sev Ondansetron HCl 4 mg 02/07/25 21:47 Ondansetron Inj 2 Mg/Ml Inj 2 Ml IVP 03/09/25 21:46 Q6HR PRN NAUSEA OR VOMITING Protocol Scopolamine 1 mg 02/07/25 17:15 02/09/25 17:47 Scopolamine 1 Mg Tdsy TOP 03/09/25 17:14 Not Given Q3D HANNAH Plan Patient is a 64-year-old male with history of atrial fibrillation (was previously on Eliquis), CAD status post multiple stents, CVA, wheelchair-bound, CKD, Castorena's esophagus, esophageal ulcers with past upper GI bleed, and chronic osteomyelitis of the lower thoracic spine who presented to [facility] ED on 02/02 from [facility] for altered mental status. The patient was admitted to the ICU for management of shock requiring vasopressors. Code status changed to DNR.02/06 off pressers. Patient was contacted by organ donation team, organs are not viable for donation. Patient was extubated 02/07 and after extensive conversation of goals of care between ICU team and , comfort measures was initiated for the patient. Patient placed on comfort care measures as of 02/07, hence all treatments will be stop except : for morphine drip prn, activan 1mg prn, zofran 4mg and scopolamine patch. #Acute encephalopathy #Bilateral subdural hygromas, chronic #Shock- resolved DDx: Metabolic derangement, distributive shock - CT head with stable chronic subdural hygromas unlikely contributing to patient current condition. EEG with no epileptiform discharges. WBC within normal limits, CTM. CT head 02/02 shows bilateral chronic subdural hygromas with mild mass effect upon the right lateral ventricle system with shift of frontal horns to the left by 3 mm - Comfort care #Aspiration Pneumonia vs Pneumonitis #History of chronic osteomyelitis T12-L2 #History of Enterococcus faecalis in urine - 02/05 CXR with R lung infiltrates and diffuse R lung PNA, compared xray to pre intubation which showed clear R Lung benitez with significant L lung pna. and vascular congestion Was On IV Doxy (02/04-02/07), Cefepime (02/02?02/05), Zosyn 3.375 gm q6hr (02/05- 02/07) - Comfort care #Bilateral pleural effusions (L>R) with compressive atelectasis As noted on CT chest/abdomen/pelvis taken 02/02 Patient breathing comfortably on room air without increased work of breathing on admission - Comfort care #Hypothermia #CHF exacerbation #HFpEF (55-60% EF 12/2024) #Mobitz Type I Wenkebach #Atrial fibrillation #Hx CAD with stents #Acute hypoxic Respirtory failure #Respiratory Alkalosis #Pulmonary Edema #Bilateral pleural effusions (L>R) with compressive atelectasis #History of Castorena's esophagus #History of esophageal ulcers with upper GI bleed- no active bleeding # Transaminitis # ?Primary hepatocellular disease #Nutrition #Persistent Hypoglycemia #ARIA on CKD IV #CKD stage IV (GFR 20) #Lactic acidosis #Hyperosmolar hypernatremia - improved #Hypochloremia - stable, persists #Hyperphosphatemia (improvng) #Normal anion gap metabolic acidosis- resolvng #RTA #Bilateral renal cysts #Atrophic left kidney #Indwelling tenorio catheter- chronic #Pancytopenia #Acute on chronic normocytic anemia #Acute on Chronic Thrombocytopenia #Stage IV ulcer, lower back, 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 Adair and discuss with senior resident Dr. Ly PGY-3 Nisha Ramirez MD PGY-1, Internal Medicine Please note: this document was transcribed using voice recognition technology; minor inaccuracies may be present. Attending Provider Attestation/Addendum ISuzanna DO, attest that I was physically present for the umanzor portions of the service and evaluated the patient with the resident and I reviewed and discussed the case with the resident and agree with the resident's findings and plans of care as documented above Pt seen and evaluated this AM. No family at bedside. Continue with comfort measures.
[2025-02-10 12:34] VITALS: RESP 8; TEMP 36
[2025-02-10 14:00] VITALS: RESP 9; TEMP 35.8
[2025-02-10] MEDS: Morphine IV Drip 100mg/100ml 100 ML IV (18:11)
[2025-02-11 05:46] VITALS: BP 79/49; RESP 9; TEMP 34.9; O2SAT 94
[2025-02-11] MEDS: SCOPOLAMINE 1 MG TDSY TOP (06:49)
[2025-02-11 06:50] VITALS: RESP 20
[2025-02-11 07:58] VITALS: RESP 8; TEMP 35.6
--- NOTE | 2025-02-11 12:28 | ESPR_ITS ---
<Statement entered by Giuliano Gifford MD - 02/11/25 13:53> Note reviewed and agree with care plan as documented. Please refer to the note below for further details. Plan discussed with attending physician Dr. Mia Gifford MD PGY-2 Internal Medicine Documentation for date of: 02/11/25 Subjective Subjective Interval history: Patient is lying in bed, in no acute distress, accompanied by bedside. Continuing comfort care with morphine drip. Exam Vital Signs Temp Pulse Resp BP Pulse Ox O2 Del Method O2 Flow Rate 96.1 F L 47 L 8 L 79/49 L 94 L Room Air 30 02/11/25 07:58 02/09/25 21:00 02/11/25 07:58 02/11/25 05:46 02/11/25 05:46 02/11/25 05:46 02/06/25 06:17 FiO2 30 02/07/25 16:00 Narrative Exam GENERAL: no acute distress, laying in bed HEENT: Head AT/ NC. Mucous membranes dry. PERRL SKIN: No jaundice, healing excoriations noted on the BUE, most prominent on the R shoulder. blanching macular rash noted on the abdomen, poor skin turgor, and dry and peeling skin noted on feet and hands, onychomycosis of the great toes noted. NECK: Supple, in the extended position, no lymphadenopathy, no carotid bruits. CARDIOVASCULAR: RRR. Normal S1/S2, No m/r/g. significant edema of the upper and lower extremities, diffuse, ansiarca, to the elbows and feet with 4+ pitting edema, and 2 +in the forearms. unable to appreciate pedal pulses 2/2 significant edema RESPIRATORY: Diminished breath sounds on the R lung benitez, with crackles noted in the mid to lower lung benitez. GASTROINTESTINAL: Abdomen soft, non tender no palpable masses. Bowel sounds present MUSCULOSKELETAL:? No cyanosis or edema, no visible joint swelling., chronic ulcer at the t11 level beefy red, see wound care note stage 4 and dusky, surrounding tissue is dark purple and red. NEUROLOGICAL: not assessed PSYCHIATRIC: not assessed. Objective Labs 02/07/25 05:00 02/07/25 05:00 ABG Interpretation ABG results: 02/02/25 02/03/25 02/03/25 19:07 11:09 23:50 ABG pH 7.46 H ABG pCO2 26 L ABG pO2 64 L ABG HCO3 19 L ABG O2 Saturation 95 ABG Base Excess -5 L VBG pH 7.38 7.40 VBG pCO2 30 L 23 L VBG pO2 65 H 81 H VBG Base Excess -7 L -10 L 02/04/25 02/05/25 02/05/25 08:40 00:47 01:25 ABG pH 7.20 L D 7.27 L ABG pCO2 58 H D 46 D ABG pO2 124 H D 358 H D ABG HCO3 22 21 ABG O2 Saturation 98 100 H ABG Base Excess -6 L -6 L VBG pH 7.47 VBG pCO2 27 L VBG pO2 169 H D VBG Base Excess -4 L 02/05/25 02/05/25 02/06/25 04:36 08:10 04:19 ABG pH 7.45 D 7.39 7.47 H ABG pCO2 29 L D 35 32 ABG pO2 333 H D 126 H D 147 H D ABG HCO3 20 21 23 ABG O2 Saturation 100 H 99 H 100 H ABG Base Excess -3 -4 L -1 VBG pH 7.49 VBG pCO2 31 L VBG pO2 161 H VBG Base Excess 0 02/07/25 05:12 ABG pH 7.42 ABG pCO2 36 ABG pO2 134 H ABG HCO3 23 ABG O2 Saturation 100 H ABG Base Excess -1 VBG pH VBG pCO2 VBG pO2 VBG Base Excess Quality Measures Quality Measures VTE prophylaxis and sepsis Current suspected stage: sepsis (comfort care) Possible source: pulmonary, genitourinary and skin/soft tissue Blood cultures ordered: yes Antibiotic ordered: No Assessment & Plan Assessment Current Active Medications: Generic Name Dose Route Start Last Admin Trade Name Freq PRN Reason Stop Dose Admin Artificial Tears 1 drop 02/07/25 12:00 Artificial Tears 225 Drop/15 Ml Btl BOTH EYES 03/09/25 11:59 Q4HR PRN Dry eyes Diphenhydramine HCl 25 mg 02/07/25 18:28 Diphenhydramine Inj 50 Mg/Ml Vial IVP 03/09/25 18:27 Q6HR PRN ITCHING Morphine Sulfate 100 mls @ 1 mls/hr 02/07/25 12:00 02/10/25 18:11 Morphine Sulfate Iv Drip 100mg/100ml IV 02/12/25 11:59 1 mg/hr .Q24H PRN 1 mls/hr PAIN (COMFORT CARE) Administration Protocol 1 MG/HR Lorazepam 1 mg 02/07/25 17:10 Lorazepam 2 Mg/Ml Vial IVP 02/12/25 16:43 Q1H PRN ANXIETY Protocol Morphine Sulfate 2 mg 02/10/25 05:01 02/10/25 06:19 Morphine Sulf Inj 4 Mg/Ml Vial IVP 02/15/25 05:00 2 mg Q30M PRN Administration PAIN SCALE 4-10(Mod-Sev Ondansetron HCl 4 mg 02/07/25 21:47 Ondansetron Inj 2 Mg/Ml Inj 2 Ml IVP 03/09/25 21:46 Q6HR PRN NAUSEA OR VOMITING Protocol Scopolamine 1 mg 02/07/25 17:15 02/11/25 06:49 Scopolamine 1 Mg Tdsy TOP 03/09/25 17:14 1 mg Q3D HANNAH Administration Plan Patient is a 64-year-old male with history of atrial fibrillation (was previously on Eliquis), CAD status post multiple stents, CVA, wheelchair-bound, CKD, Castorena's esophagus, esophageal ulcers with past upper GI bleed, and chronic osteomyelitis of the lower thoracic spine who presented to [facility] ED on 02/02 from [facility] for altered mental status. He was admitted for hypotension and sepsis which progressed to septic shock, was found to be aspirating. His mentation continued to decline. He was intubated for airway protection. Code status changed to [id number].02/06 off pressers. Patient was contacted by organ donation team, organs are not viable for donation. Patient was extubated 02/07 and after extensive conversation of goals of care between ICU team and , comfort measures was initiated for the patient. Patient placed on comfort care measures as of 02/07, hence all treatments will be stop except : for morphine drip prn, ativan 1mg prn, zofran 4mg and scopolamine patch. #Acute encephalopathy #Bilateral subdural hygromas, chronic #Shock- resolved DDx: Metabolic derangement, distributive shock - CT head with stable chronic subdural hygromas unlikely contributing to patient current condition. EEG with no epileptiform discharges. WBC within normal limits, CTM. CT head 02/02 shows bilateral chronic subdural hygromas with mild mass effect upon the right lateral ventricle system with shift of frontal horns to the left by 3 mm - Comfort care #Aspiration Pneumonia vs Pneumonitis #History of chronic osteomyelitis T12-L2 #History of Enterococcus faecalis in urine - 02/05 CXR with R lung infiltrates and diffuse R lung PNA, compared xray to pre intubation which showed clear R Lung benitez with significant L lung pna. and vascular congestion Was On IV Doxy (02/04-02/07), Cefepime (02/02?02/05), Zosyn 3.375 gm q6hr (02/05- 02/07) - Comfort care #Bilateral pleural effusions (L>R) with compressive atelectasis As noted on CT chest/abdomen/pelvis taken 02/02 Patient breathing comfortably on room air without increased work of breathing on admission - Comfort care #Hypothermia #CHF exacerbation #HFpEF (55-60% EF 12/2024) #Mobitz Type I Wenkebach #Atrial fibrillation #Hx CAD with stents #Acute hypoxic Respirtory failure #Respiratory Alkalosis #Pulmonary Edema #Bilateral pleural effusions (L>R) with compressive atelectasis #History of Castorena's esophagus #History of esophageal ulcers with upper GI bleed- no active bleeding # Transaminitis # ?Primary hepatocellular disease #Nutrition #Persistent Hypoglycemia #ARIA on CKD IV #CKD stage IV (GFR 20) #Lactic acidosis #Hyperosmolar hypernatremia - improved #Hypochloremia - stable, persists #Hyperphosphatemia (improvng) #Normal anion gap metabolic acidosis- resolvng #RTA #Bilateral renal cysts #Atrophic left kidney #Indwelling tenorio catheter- chronic #Pancytopenia #Acute on chronic normocytic anemia #Acute on Chronic Thrombocytopenia #Stage IV ulcer, lower back, 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 Bellamy & senior resident Dr. Brian Cantor MD PGY-1 Attending Provider Attestation/Addendum I, Suzanna Bellamy, DO, attest that I was physically present for the umanzor portions of the service and evaluated the patient with the resident and I reviewed and discussed the case with the resident and agree with the resident's findings and plans of care as documented above Patient seen and evaluated this AM. Patient is comfortable. Family at bedside.
[2025-02-11 14:00] VITALS: RESP 8; TEMP 35.7
--- NOTE | 2025-02-11 17:17 | PC.SS ---
Per Dr. Bellamy, the patient is ready for discharge. Patient is on comfort care measures. SW spoke to [place] from [facility], who confirmed the patient can return on hospice but tomorrow, 02/12/2025. SS to f/u with family for hospice agency and set up transportation.
[2025-02-11] MEDS: Morphine IV Drip 100mg/100ml 100 ML IV (17:35)
[2025-02-11 23:32] VITALS: PULSE 79; RESP 15; TEMP 35.1; O2SAT 91
[2025-02-11] MEDS: MORPHINE SULF INJ 4 MG/ML VIAL 2 MG IVP (23:44)
[2025-02-12] MEDS: MORPHINE SULF INJ 4 MG/ML VIAL 2 MG IVP (03:25)
[2025-02-12 06:35] LABS: 17-Hydroxyprogesterone* 10 ng/dL; Aldosterone* <1 ng/dL
[2025-02-12 08:21] VITALS: BP 74/57; PULSE 86; RESP 12; TEMP 35.7; O2SAT 95
--- NOTE | 2025-02-12 10:03 | ESDS_ITS ---
<Statement entered by Suzanna Bellamy DO - 02/12/25 18:35> I, Suzanna Bellamy DO, attest that I was physically present for the umanzor portions of the service and evaluated the patient with the resident and I reviewed and discussed the case with the resident and agree with the resident's findings and plans of care as documented above <Statement entered by Giuliano Gifford MD - 02/12/25 15:05> Note reviewed and agree with care plan as documented. Please refer to the note below for further details. Plan discussed with attending physician Dr. Mia Gifford MD PGY-2 Internal Medicine Planned Discharge Date 02/12/25 DS: Providers Provider Date of admission: 02/02/25 18:23 Primary care physician: Wilfredo Navarro MD Admitting Provider: Shereen Arnold MD Attending Provider on Admission: Shereen Arnold MD Consults: 02/04/25 10:59 Consult to Nephrology Routine Comment: Consulting Provider: Stephanie Summers 02/05/25 15:26 Referral Nutritional Services Routine Comment: wounds 02/07/25 11:59 Referral Debi Stat Comment: initiation of comfort care, and extubation 02/12/25 09:20 Referral Hospice Routine Comment: Attending Provider on DC: Suzanna Bellamy Discharging Provider: Suzanna Bellamy Anticipated date of discharge: 02/12/25 DS: Diagnosis Problem List Completed Was Problem List Reviewed/Reconciled?: Yes Hospital Course Hospital Course Hospital course: Summary Patient is a 64-year-old male with history of atrial fibrillation (was previously on Eliquis), CAD status post multiple stents, CVA, wheelchair-bound, CKD, Castorena's esophagus, esophageal ulcers with past upper GI bleed, and chronic osteomyelitis of the lower thoracic spine who presented to [facility] ED on 02/02 from [facility] for altered mental status. Who was recently hospitalized from his SNF with altered mental status, hypotension, hypoglycemia, and fever. During his ICU stay, he required vasopressors, had minimal responsiveness, and developed respiratory failure requiring intubation. He experienced persistent metabolic disturbances, worsening renal function, anemia, and pulmonary edema. Given his baseline functional status and comorbidities, he was not a candidate for dialysis or aggressive interventions. After goals of care discussions with his , code status was changed to DNR, and he was transitioned to comfort-focused care on 02/07. He was extubated 02/07 and started on morphine drip, scopolamine and Ativan for symptom management, with paint mixer machine referral arranged. The patient is discharged to home hospice with a focus on comfort, symptom control, and family support, with his as the primary decision-maker. Discharge recommendation: Home w/ Hospice Hospital Diagnoses: #Acute encephalopathy #Bilateral subdural hygromas, chronic #Shock- resolved #Acute encephalopathy #Bilateral subdural hygromas, chronic #Shock- resolved #Bilateral pleural effusions (L>R) with compressive atelectasis #Hypothermia #CHF exacerbation #HFpEF (55-60% EF 12/2024) #Mobitz Type I Wenkebach #Atrial fibrillation #Hx CAD with stents #Acute hypoxic Respirtory failure #Respiratory Alkalosis #Pulmonary Edema #Bilateral pleural effusions (L>R) with compressive atelectasis #History of Castorena's esophagus #History of esophageal ulcers with upper GI bleed- no active bleeding # Transaminitis # ?Primary hepatocellular disease #Nutrition #Persistent Hypoglycemia #ARIA on CKD IV #CKD stage IV (GFR 20) #Lactic acidosis #Hyperosmolar hypernatremia - improved #Hypochloremia - stable, persists #Hyperphosphatemia (improvng) #Normal anion gap metabolic acidosis- resolvng #RTA #Bilateral renal cysts #Atrophic left kidney #Indwelling tenorio catheter- chronic #Pancytopenia #Acute on chronic normocytic anemia #Acute on Chronic Thrombocytopenia #Stage IV ulcer, lower back, 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 Brian Gifford PGY-3 Nisha Ramirez MD PGY-1, Internal Medicine Please note: this document was transcribed using voice recognition technology; minor inaccuracies may be present. Time Spent with Patient Time attestation: Total time spent providing and/or coordinating discharge services: Time spent: Greater than 30 minutes Exam Vital Signs Temp Pulse Resp BP Pulse Ox O2 Del Method O2 Flow Rate 96.2 F L 86 12 74/57 L 95 Room Air 30 02/12/25 08:21 02/12/25 08:21 02/12/25 08:21 02/12/25 08:21 02/12/25 08:21 02/12/25 08:21 02/06/25 06:17 FiO2 30 02/07/25 16:00 Narrative Exam GENERAL: no acute distress, laying in bed HEENT: Head AT/ NC. Mucous membranes dry. PERRL SKIN: No jaundice, healing excoriations noted on the BUE, most prominent on the R shoulder. blanching macular rash noted on the abdomen, poor skin turgor, and dry and peeling skin noted on feet and hands, onychomycosis of the great toes noted. NECK: Supple, in the extended position, no lymphadenopathy, no carotid bruits. CARDIOVASCULAR: RRR. Normal S1/S2, No m/r/g. significant edema of the upper and lower extremities, diffuse, ansiarca, to the elbows and feet with 4+ pitting edema, and 2 +in the forearms. unable to appreciate pedal pulses 2/2 significant edema RESPIRATORY: Diminished breath sounds on the R lung benitez, with crackles noted in the mid to lower lung benitez. GASTROINTESTINAL: Abdomen soft, non tender no palpable masses. Bowel sounds present MUSCULOSKELETAL:? No cyanosis or edema, no visible joint swelling., chronic ulcer at the t11 level beefy red, see wound care note stage 4 and dusky, surrounding tissue is dark purple and red. NEUROLOGICAL: not assessed PSYCHIATRIC: not assessed. Discharge Plan Plan Patient Disposition: Home w/HOSPICE Prescriptions/Referrals Prescriptions/Med Rec: Discontinued cephalexin 500 mg capsule 500 mg PO Q8HR 16 Days Qty: 0 0RF Rx Instructions: until 02/12/2025 9379 acetaminophen-codeine 300-15 mg tablet 1 tab PO Q12H Referrals: Wilfredo Navarro MD [Primary Care Provider, Family Practice] Patient/Caregiver Discharge Instructions Print Language: Cymraes Stand Alone Forms: Caterina Award Info., Patient Portal Info Letter Discharge Order Discharge Orders: Discharge (Routine); Ordered 02/12/25 Ordered By: Nisha Ramirez Quality Discharge Quality Measures none
--- NOTE | 2025-02-12 10:27 | PC.SS ---
SS met with pt and at bedside t discuss DC plan. Pt Hope requested to take pt home with [facility]. Referral submitted via [facility] to [facility], pending a response. Family requesting a bed for home.
--- NOTE | 2025-02-12 12:13 | PC.NURSE ---
Called Dr. Gifford to please renew patients maynor greer. As soon as he is done with conference he will put in the order.
--- NOTE | 2025-02-12 12:39 | PC.NURSE ---
Called Dr. Bellamy so she can renew patients morphine drip.
== END 2025-02-12 15:20 | disposition hospice, home (50) | DRG 871 ==
LOC: SERX 16:26 → SERHOLD 19:11 → S2SX 20:27 → S3SX 02-07 18:06
PROVIDERS: Student in an Organized Health Care Education/Training Program; Admitting Provider Internal Medicine; Emergency Provider Emergency Medicine; PCP Family Medicine; Visit Provider Internal Medicine
DX: A41.9 Sepsis, unspecified organism (principal); G93.41 Metabolic encephalopathy; R65.21 Severe sepsis with septic shock; J18.9 Pneumonia, unspecified organism; L89.104 Pressure ulcer of unspecified part of back, stage 4; L89.154 Pressure ulcer of sacral region, stage 4; I21.A1 Myocardial infarction type 2; N17.0 Acute kidney failure with tubular necrosis; I50.33 Acute on chronic diastolic (congestive) heart failure; J96.01 Acute respiratory failure with hypoxia; R57.8 Other shock; N18.4 Chronic kidney disease, stage 4 (severe); E87.20 Acidosis, unspecified; N39.0 Urinary tract infection, site not specified; D61.818 Other pancytopenia; E87.0 Hyperosmolality and hypernatremia; G96.08 Other cranial cerebrospinal fluid leak; J90 Pleural effusion, not elsewhere classified; M46.24 Osteomyelitis of vertebra, thoracic region; I13.0 Hypertensive heart and chronic kidney disease with heart failure and stage 1 through stage 4 chronic kidney disease, or unspecified chronic kidney disease; E87.1 Hypo-osmolality and hyponatremia; E87.4 Mixed disorder of acid-base balance; Z99.3 Dependence on wheelchair; I48.91 Unspecified atrial fibrillation; E78.5 Hyperlipidemia, unspecified; I25.10 Atherosclerotic heart disease of native coronary artery without angina pectoris; Z95.5 Presence of coronary angioplasty implant and graft; T68.XXXA Hypothermia, initial encounter; R74.01 Elevation of levels of liver transaminase levels; E87.5 Hyperkalemia; E87.8 Other disorders of electrolyte and fluid balance, not elsewhere classified; N28.1 Cyst of kidney, acquired; Z66 Do not resuscitate; I44.1 Atrioventricular block, second degree; E16.2 Hypoglycemia, unspecified; E83.39 Other disorders of phosphorus metabolism; E86.1 Hypovolemia; I69.30 Unspecified sequelae of cerebral infarction
CPT/HCPCS: 36415; 36600; 70450; 71045; 71250; 72147; 74176; 76700; 80053; 80069; 80074; 80202; 81001; 82088; 82140; 82436; 82530; 82550; 82570; 82728; 82803; 83498; 83605; 83615; 83690; 83735; 83880; 84100; 84133; 84145; 84244; 84295; 84300; 84439; 84443; 84484; 85014; 85018; 85025; 85610; 85730; 86850; 86900; 86901; 86923; 87040; 87077; 87081; 87086; 87186; 87205; 93005; 94002; 94003; 96361; 96365; 96366; 96375; 99285; A9577; J0330; J0612; J0692; J1100; J1644; J1815; J1956; J2060; J2270; J2470; J2543; J2704; J3010; J3373; J3475; J3490; J7050; J7070; J7120; P9016; P9047; A9270